=== PATIENT | female | born 1950 | race Caucasian/White ===

== ENCOUNTER 2016-06-01 17:08 | Inpatient (IN) | payer MEDICARE, OTHER ==
[2016-06-01] VITALS (8 sets, daily range): BP systolic 124–185; BP diastolic 70–85; PULSE 77–85; RESP 16–18; TEMP 98.2; O2SAT 94–97
[~2016-06-01] VITALS: Ht 152.4 cm; Wt 68.4 kg
[~2016-06-01 17:08] MED LIST: ADVA100A INH; ASPI1TAB69 PO; BENA25TA3 PO; BETH25TA2 PO; CYAN1000P IM; DIFL100T PO; HYDR500C2 PO; LANO0.2510 PO; LEVA0.637 INH; LISI-519 PO; METO25TA3 PO; METR-1 PO; OXYB5TAB10 PO; OXYC30TA PO; OXYC80TA9 PO; PANT40TA3 PO; PRIL40CA PO; PROM1SUP8 RECTAL; SOMA350T PO; SUMA85TA PO; TEMA30CA PO; TRIL135C PO; VENTAER INH; ZOFR8TAB PO
[2016-06-01] MEDS ORDERED: SODIUM CHLOR 0.9% 1000 ML INJ 1,000 ML IV SCH (17:46)
--- NOTE | 2016-06-01 17:56 | PD ---
HPI Chief Complaint: GI Complaint Time Seen by Provider: 17:28 Travel History International Travel<30 days: No Contact w/Intl Traveler<30days: No Traveled to known affect area: No History of Present Illness HPI The patient is a 66-year-old female who presents to the emergency department for abdominal pain. The patient notes a history of abdominal pain over the last several months which is been intermittent, located in the lower aspect of her abdomen occasionally the epigastrium. The pain is dull to sharp, nonradiating, and associated with nausea and vomiting. The patient has had a workup including CT scans and lipase, with a history of pancreatitis. The patient is also had a history of chronic inflammation of her colon and recently underwent a sigmoidoscopy by Dr. Arevalo's office, was negative per the employment coordinator. The patient does note nausea and vomiting, denies any acute diarrhea. She denies any fever, chills, or sweats. The patient does have a history of chronic pain and is on medications by her pain interventional list, Dr. Nunes. [facility] Past Medical History Anemia: Yes (MYLOPROLIFERATIVE BLOOD DISORDER) Arthritis: No Asthma: Yes Atrial Fibrillation: Yes Autoimmune Disease: No Blood Disorders: No Anxiety: No Depression: No Heart Rhythm Problems: Yes (AFIB) Cancer: No Cardiovascular Problems: No High Cholesterol: No Chemotherapy: No Chest Pain: No Congestive Heart Failure: No COPD: Yes (EMPHYSEMA) Cerebrovascular Accident: Yes Diabetes: No Diminished Hearing: No Endocrine: No Gastrointestinal Disorders: Yes GERD: No Glaucoma: No Genitourinary: No Headaches: No Hepatitis: Yes (HEP-B) Hiatal Hernia: No Hypertension: Yes Immune Disorder: No Kidney Stones: No Musculoskeletal: No Neurologic: No Psychiatric: No Respiratory: Yes Migraines: Yes Myocardial Infarction: No Radiation Therapy: No Renal Failure: No Seizures: No Sickle Cell Disease: No Sleep Apnea: No Thyroid Disease: No Ulcer: No Menopausal: Yes Tubal Ligation: Yes Past Surgical History Abdominal Surgery: Yes (NAPOLEON,HERNIA REPAIR X 3) AICD: No Cardiac Surgery: No Cholecystectomy: Yes Ear Surgery: No Endocrine Surgery: No Eye Surgery: No Genitourinary Surgery: Yes (BLADDER SUSPENSION) Gynecologic Surgery: Yes (LT BREAST LUMPECTOMY) Hysterectomy: Yes Insulin Pump: No Joint Replacement: No Oral Surgery: No Pacemaker: No Thoracic Surgery: No Other Surgery: Yes Social History Alcohol Use: No Tobacco Use: No (FORMER) Substance Use: No Allergies-Medications (Allergen,Severity, Reaction): Coded Allergies: Bactrim (Verified Allergy, Severe, "VOMITING", 06/01/16) Inderal (Verified Allergy, Severe, "CAUSES ASTHMA ATTACK", 06/01/16) Indocin (Verified Allergy, Severe, "NAUSEA", 06/01/16) Penicillin (Verified Allergy, Severe, "HEART FAILURE", 06/01/16) Procardia (Verified Allergy, Severe, "RAPID HEART BEAT", 06/01/16) Reported Meds & Prescriptions Reported Meds & Active Scripts Active Pantoprazole (Pantoprazole Sodium) 40 Mg Tab 40 Mg PO DAILY Metoprolol Tartrate 25 Mg Tab 12.5 Mg PO Q12HR Zofran (Ondansetron HCl) 8 Mg Tab 8 Mg PO TID PRN Lisinopril 5 Mg Tab 5 Mg PO DAILY 30 Days Reported Toviaz ER (Fesoterodine Fumarate) 4 mg Roderick 4 Mg PO DAILY Ditropan (Oxybutynin Chloride) 5 Mg Tab 5 Mg PO Q12HR Bethanechol 25 Mg Tab 25 Mg PO QID Benadryl Allergy (Diphenhydramine HCl) 25 Mg Tab 25 Mg PO Q6H PRN Ventolin Hfa 18 GM Inh (Albuterol Sulfate) 90 Mcg/Act Aer 1 Puff INH Q4H PRN Advair Diskus Inh (Fluticasone-Salmeterol Inh) 100-50 Mcg/Blist Aer 1 Puff INH BID Rinse mouth after use. Levalbuterol Neb (Levalbuterol HCl) 0.63 Mg/3 Ml Neb 0.63 Mg INH QID Cyanocobalamin Inj (Cyanocobalamin) 1,000 Mcg/Ml Inj 1,000 Mcg IM Q30D Aspirin 81 Mg Tabdr 81 Mg PO DAILY Lanoxin (Digoxin) 0.25 Mg Tab 0.25 Mg PO DAILY Treximet (Sumatriptan-Naproxen) 85-500 Mg Tab 1 Tab PO Q12HR PRN May take a second dose after 2 hours if needed. Maximum 2 tabs in 24 hour period. Trilipix (Choline Fenofibrate DR) 135 Mg Capdr 135 Mg PO DAILY Hydroxyurea 500 Mg Cap 500 Mg PO Q12HR Oxycodone (Oxycodone HCl) 30 Mg Tab 30 Mg PO Q8H PRN Oxycontin (Oxycodone HCl) 80 Mg Tab 80 Mg PO Q8HR PRN Review of Systems Except as stated in HPI: all other systems reviewed are Neg General / Constitutional: No: Fever, Chills Cardiovascular: No: Chest Pain or Discomfort Respiratory: No: Shortness of Breath Gastrointestinal: Positive: Nausea, Vomiting, Abdominal Pain, No: Diarrhea Genitourinary: No: Dysuria Musculoskeletal: No: Weakness Neurologic: Positive: Change in Mentation (history of delirium according to the employment coordinator) Physical Exam Narrative GENERAL: 66-year-old female appears slightly disheveled. SKIN: Warm and dry. HEAD: Atraumatic. Normocephalic. EYES: No scleral icterus noted. ENT: No nasal bleeding or discharge. Slightly dry mucous membranes. NECK: Trachea midline. No JVD. CARDIOVASCULAR: Regular rate and rhythm. No murmur appreciated. RESPIRATORY: No accessory muscle use. Clear to auscultation. Breath sounds equal bilaterally. GASTROINTESTINAL: Abdomen soft, diffusely tender but no tympany or rebound tenderness. Well-healed scar right upper quadrant from previous open cholecystectomy. MUSCULOSKELETAL: No obvious deformities. No clubbing. No cyanosis. No edema. NEUROLOGICAL: Awake and alert. No obvious cranial nerve deficits. Motor grossly within normal limits. Normal speech. PSYCHIATRIC: Odd affect. Data Data Last Documented VS Vital Signs Date Time Temp Pulse Resp B/P Pulse Ox O2 Delivery O2 Flow Rate FiO2 06/01/16 20:12 78 18 169/72 97 Room Air 06/01/16 17:25 98.2 Orders Complete Blood Count With Diff (06/01/16 17:46) Comprehensive Metabolic Panel (06/01/16 17:46) Lipase (06/01/16 17:46) Lactic Acid (06/01/16 17:46) Urinalysis - C+S If Indicated (06/01/16 17:46) Ct Abd/Pel W/O Iv Contrast (06/01/16 17:46) Iv Access Insert/Monitor (06/01/16 17:46) Ecg Monitoring (06/01/16 17:46) Oximetry (06/01/16 17:46) Morphine Inj (Morphine Inj) (06/01/16 18:00) Ondansetron Inj (Zofran Inj) (06/01/16 18:00) Sodium Chlor 0.9% 1000 Ml Inj (Ns 1000 M (06/01/16 17:46) Sodium Chloride 0.9% Flush (Ns Flush) (06/01/16 18:00) Ciprofloxacin 400 Mg Premix (Cipro 400 M (06/01/16 18:45) Metronidazole 500 Mg Inj (Flagyl 500 Mg (06/01/16 18:45) Urine Culture (06/01/16 18:00) Potassium Chlor 10 Meq Premix (Kcl 10 Me (06/01/16 20:15) Potassium Chloride (Kcl) (06/01/16 20:15) Calcium Carbonate Chew (Tums Chew) (06/01/16 20:15) Electrocardiogram (06/01/16 ) Admit Order (Ed Use Only) (06/01/16 ) ^ Saline Lock (06/01/16 20:34) Resp Oxygen Anuj C Titrat 1-4 L (06/01/16 ) ^ Notify Dr: Other (06/01/16 20:34) Sodium Chloride 0.9% Flush (Ns Flush) (06/01/16 21:00) Sodium Chloride 0.9% Flush (Ns Flush) (06/01/16 20:45) ^ For Further Orders (06/01/16 20:34) Digoxin (06/01/16 18:34) Magnesium (Mg) (06/01/16 18:34) Troponin I (06/01/16 18:34) Labs Laboratory Tests Test 06/01/16 06/01/16 18:00 18:34 Urine Collection Type CLEAN CATCH Urine Color YELLOW Urine Turbidity MARKED Urine pH 6.0 Urine Specific [place] 1.020 Urine Protein 100 mg/dL Urine Glucose (UA) NEG mg/dL Urine Ketones NEG mg/dL Urine Occult Blood SMALL Urine Nitrite NEG Urine Bilirubin NEG Urine Leukocyte Esterase MOD Urine RBC 15-19 /hpf Urine WBC INNUM /hpf Urine WBC Clumps MOD Urine Squamous Epithelial 6-8 /hpf Cells Urine Amorphous Sediment FEW Urine Bacteria MANY /hpf Microscopic Urinalysis Comment CULTURE INDICATED Urine Collection Time 1800 White Blood Count 7.7 TH/MM3 Red Blood Count 3.23 MIL/MM3 Hemoglobin 11.3 GM/DL Hematocrit 33.7 % Mean Corpuscular Volume 104.3 FL Mean Corpuscular Hemoglobin 34.9 PG Mean Corpuscular Hemoglobin 33.5 % Concent Red Cell Distribution Width 18.1 % Platelet Count 131 TH/MM3 Mean Platelet Volume 9.3 FL Neutrophils (%) (Auto) 69.8 % Lymphocytes (%) (Auto) 20.0 % Monocytes (%) (Auto) 9.0 % Eosinophils (%) (Auto) 0.4 % Basophils (%) (Auto) 0.8 % Neutrophils # (Auto) 5.4 TH/MM3 Lymphocytes # (Auto) 1.5 TH/MM3 Monocytes # (Auto) 0.7 TH/MM3 Eosinophils # (Auto) 0.0 TH/MM3 Basophils # (Auto) 0.1 TH/MM3 CBC Comment DIFF FINAL Differential Comment Sodium Level 145 MEQ/L Potassium Level 2.8 MEQ/L Chloride Level 107 MEQ/L Carbon Dioxide Level 27.1 MEQ/L Anion Gap 11 MEQ/L Blood Urea Nitrogen 10 MG/DL Creatinine 0.60 MG/DL Estimat Glomerular Filtration 100 ML/MIN Rate Random Glucose 123 MG/DL Lactic Acid Level 1.2 mmol/L Calcium Level 6.8 MG/DL Protein Corrected Calcium 7.0 MG/DL Magnesium Level 0.9 MG/DL Total Bilirubin 0.6 MG/DL Aspartate Amino Transf 19 U/L (AST/SGOT) Alanine Aminotransferase 9 U/L (ALT/SGPT) Alkaline Phosphatase 46 U/L Troponin I LESS THAN 0.02 NG/ML Total Protein 6.8 GM/DL Albumin 2.5 GM/DL Lipase 101 U/L Digoxin Level 1.4 NG/ML MDM Medical Decision Making Medical Screen Exam Complete: Yes Emergency Medical Condition: Yes Medical Record Reviewed: Yes Interpretation(s) MRCP performed May 27, 2016 at [facility] reveals dilation of the pancreatic duct in the common bile duct that is at the upper range for normal for patient that is status post cholecystectomy. No obstructing stone or mass. The duct tapers at the level of the ampulla. Abnormal appearance to the hepatic flexure concerning for possible mass. MRI of the brain on May 27, 2016 at [facility] reveals no evidence of an acute abnormality. CT of the abdomen and pelvis reveals mild bowel wall thickening in the transverse colon. This could represent mild colitis. Scattered diverticula in the sigmoid colon. I do not see any active diverticulitis in the sigmoid colon. One tiny bubble of air is present in the bladder, nonspecific. Differential Diagnosis Differential diagnosis includes pancreatitis, chronic pancreatitis, pancreatic cancer, colon cancer, chronic colitis, malingering, drug-seeking behavior, dehydration. Narrative Course IV was established, labs were drawn and sent, and the patient was placed on cardiac telemetry monitoring and continuous pulse oximetry monitoring. I reviewed the patient's recent MRIs on an outpatient basis including MRCP an MRI of the brain. I reviewed the patient's EMR she has had CAT scans in the past which always reveal thickening of the colon, however, the patient's employment coordinator states that she recently had a sigmoidoscopy which was unremarkable and was going to have an outpatient colonoscopy with Dr. Arevalo's office. The patient was administered morphine, Zofran, and IV fluids for her pain. Lipase was sent to lab. CT of the abdomen and pelvis was ordered. CT the abdomen and pelvis reveals questionable ball wall thickening and transverse colon which could represent a mild colitis. Therefore, patient was administered Cipro and Flagyl. The patient was signed out to the oncoming physician at 7 PM with laboratory evaluation and disposition pending. The patient's UA was positive for innumerable WBCs, therefore, Cipro which had been provided for colitis should cover for UTI. Culture was obtained. Diagnosis Primary Impression: Abdominal pain Qualified Code: R10.84 - Generalized abdominal pain Additional Impressions: Colitis UTI (urinary tract infection) Qualified Code: N30.00 - Acute cystitis without hematuria Condition: Stable Hardeep Marin MD Jun 01, 2016 17:56
[2016-06-01] MEDS ORDERED: TOVI4TAB PO (17:57)
[2016-06-01] MEDS ORDERED: SODIUM CHLORIDE 0.9% FLUSH 5 ML FLUSH IVF PRN ×2 (18:00→20:45)
[2016-06-01] MEDS ORDERED: ONDANSETRON HCL 4 MG/2 ML VIAL IVP ONE (18:00)
[2016-06-01] MEDS ORDERED: MORPHINE SULFATE 4 MG/ML INJ IV PUSH ONE ×2 (18:00→23:15)
[2016-06-01 18:30] LABS: BLOOD, URINE SMALL (NEG); GLUCOSE,URINE NEG (NEG); KETONE, URINE NEG (NEG); NITRITE,URINE NEG (NEG)
--- NOTE | 2016-06-01 18:33 | RADHPO ---
EXAM DATE/TIME: 06/01/2016 18:09 [place] COMPARISON: No previous studies available for comparison. INDICATIONS : Lower abdomen pain for two months. ORAL CONTRAST: No oral contrast ingested. RADIATION DOSE: 9.18 CTDIvol (mGy) MEDICAL HISTORY : Stroke. Hepatitis B. Pancreatitis. SURGICAL HISTORY : Hysterectomy. Cholecystectomy. Tubal ligation. Bladder suspension. ENCOUNTER: Initial ACUITY: 2 months PAIN SCALE: 8/10 LOCATION: Bilateral lower quadrant TECHNIQUE: Volumetric scanning of the abdomen and pelvis was performed. Using automated exposure control and ad justment of the mA and/or kV according to patient size, radiation dose was kept as low as reasonably achievable to obtain optimal diagnostic quality images. FINDINGS: Very minimal parenchymal changes are seen in the right base. Multiple surgical clips are seen in the gallbladder fossa. The spleen is prominent. The pancreas, adrenals and right kidney are unremarkab le. There is a parenchymal calcification in the lower mid portion of the left kidney. There is very minimal bowel wall thickening in the transverse colon that could be a mild colitis. Th e descending colon appears normal. Diverticula are present in the sigmoid colon without diverticulitis. The bladder is partially decompressed. CONCLUSION: Mild bowel wall thickening in the transverse colon. This could represent mild colitis. Scattered di verticula in the sigmoid colon. I do not any active diverticulitis in the sigmoid colon. One tiny lani ble of air is present in the bladder, non-specific. Roni Shook MD FACR on June 01, 2016 at 18:22 Board Certified Radiologist. This report was verified electronically.
[2016-06-01 18:35] LABS: METHOD OF COLLECTION CLEAN CATCH; URINE COLOR YELLOW (YELLW/STRAW)
[2016-06-01 18:39] LABS: BACTERIA, URINE MANY /hpf; COMMENT (UR) CULTURE INDICATED; COMMENT2 (UR) MUCOUS PRESENT; CULTURE IF INDICATED CULTURE INDICATED; RBC, URINE 15-19 /hpf (0-3); WBC, URINE INNUM /hpf (0-5)
[2016-06-01] MEDS ORDERED: CIPROFLOXACIN 400 MG PREMIX 200 ML IV ONE (18:45)
[2016-06-01] MEDS ORDERED: metroNIDAZOLE 500 MG INJ 100 ML IV ONE (18:45)
[2016-06-01 18:50] LABS: AUTOMATED NEUTROPHIL # 5.4 TH/MM3 (1.8-7.7); BASOPHIL # 0.1 TH/MM3 (0-0.2); BASOPHIL % 0.8 % (0.0-2.0); EOSINOPHIL % 0.4 % (0.0-4.0); HEMATOCRIT 33.7 % (35.0-46.0); HEMO FLAGS DIFF FINAL; LYMPHOCYTE # 1.5 TH/MM3 (1.0-4.8); MEAN CELL VOLUME 104.3 FL (80.0-100.0); MEAN CORPUSCULAR HEMOGLOBIN 34.9 PG (27.0-34.0); MEAN CORPUSCULAR HGB CONC 33.5 % (32.0-36.0); NEUT % 69.8 % (16.0-70.0); PLATELET COUNT 131 TH/MM3 (150-450); RED BLOOD COUNT 3.23 MIL/MM3 (4.00-5.30); RED CELL DISTRIBUTION WIDTH 18.1 % (11.6-17.2); WHITE BLOOD COUNT 7.7 TH/MM3 (4.0-11.0)
--- NOTE | 2016-06-01 19:09 | PD ---
Physical Exam Date Seen by Provider: Jun 01, 2016 Time Seen by Provider: 19:08 Narrative Accepted in transfer of care from Dr. Marin GENERAL: elderly appearing female in no acute distress or respiratory distress CARDIOVASCULAR: Regular rate and rhythm without murmurs, gallops, or rubs. RESPIRATORY: Breath sounds equal bilaterally. No accessory muscle use. GASTROINTESTINAL: Abdomen soft, non-tender, nondistended. Data Data Last Documented VS Vital Signs Date Time Temp Pulse Resp B/P Pulse Ox O2 Delivery O2 Flow Rate FiO2 06/01/16 20:12 78 18 169/72 97 Room Air 06/01/16 17:25 98.2 Orders Complete Blood Count With Diff (06/01/16 17:46) Comprehensive Metabolic Panel (06/01/16 17:46) Lipase (06/01/16 17:46) Lactic Acid (06/01/16 17:46) Urinalysis - C+S If Indicated (06/01/16 17:46) Ct Abd/Pel W/O Iv Contrast (06/01/16 17:46) Iv Access Insert/Monitor (06/01/16 17:46) Ecg Monitoring (06/01/16 17:46) Oximetry (06/01/16 17:46) Morphine Inj (Morphine Inj) (06/01/16 18:00) Ondansetron Inj (Zofran Inj) (06/01/16 18:00) Sodium Chlor 0.9% 1000 Ml Inj (Ns 1000 M (06/01/16 17:46) Sodium Chloride 0.9% Flush (Ns Flush) (06/01/16 18:00) Ciprofloxacin 400 Mg Premix (Cipro 400 M (06/01/16 18:45) Metronidazole 500 Mg Inj (Flagyl 500 Mg (06/01/16 18:45) Urine Culture (06/01/16 18:00) Potassium Chlor 10 Meq Premix (Kcl 10 Me (06/01/16 20:15) Potassium Chloride (Kcl) (06/01/16 20:15) Calcium Carbonate Chew (Tums Chew) (06/01/16 20:15) Electrocardiogram (06/01/16 ) Admit Order (Ed Use Only) (06/01/16 ) ^ Saline Lock (06/01/16 20:34) Resp Oxygen Anuj C Titrat 1-4 L (06/01/16 ) ^ Notify Dr: Other (06/01/16 20:34) Sodium Chloride 0.9% Flush (Ns Flush) (06/01/16 21:00) Sodium Chloride 0.9% Flush (Ns Flush) (06/01/16 20:45) ^ For Further Orders (06/01/16 20:34) Digoxin (06/01/16 18:34) Magnesium (Mg) (06/01/16 18:34) Troponin I (06/01/16 18:34) Labs Laboratory Tests Test 06/01/16 06/01/16 18:00 18:34 Urine Collection Type CLEAN CATCH Urine Color YELLOW Urine Turbidity MARKED Urine pH 6.0 Urine Specific [place] 1.020 Urine Protein 100 mg/dL Urine Glucose (UA) NEG mg/dL Urine Ketones NEG mg/dL Urine Occult Blood SMALL Urine Nitrite NEG Urine Bilirubin NEG Urine Leukocyte Esterase MOD Urine RBC 15-19 /hpf Urine WBC INNUM /hpf Urine WBC Clumps MOD Urine Squamous Epithelial 6-8 /hpf Cells Urine Amorphous Sediment FEW Urine Bacteria MANY /hpf Microscopic Urinalysis Comment CULTURE INDICATED Urine Collection Time 1800 White Blood Count 7.7 TH/MM3 Red Blood Count 3.23 MIL/MM3 Hemoglobin 11.3 GM/DL Hematocrit 33.7 % Mean Corpuscular Volume 104.3 FL Mean Corpuscular Hemoglobin 34.9 PG Mean Corpuscular Hemoglobin 33.5 % Concent Red Cell Distribution Width 18.1 % Platelet Count 131 TH/MM3 Mean Platelet Volume 9.3 FL Neutrophils (%) (Auto) 69.8 % Lymphocytes (%) (Auto) 20.0 % Monocytes (%) (Auto) 9.0 % Eosinophils (%) (Auto) 0.4 % Basophils (%) (Auto) 0.8 % Neutrophils # (Auto) 5.4 TH/MM3 Lymphocytes # (Auto) 1.5 TH/MM3 Monocytes # (Auto) 0.7 TH/MM3 Eosinophils # (Auto) 0.0 TH/MM3 Basophils # (Auto) 0.1 TH/MM3 CBC Comment DIFF FINAL Differential Comment Sodium Level 145 MEQ/L Potassium Level 2.8 MEQ/L Chloride Level 107 MEQ/L Carbon Dioxide Level 27.1 MEQ/L Anion Gap 11 MEQ/L Blood Urea Nitrogen 10 MG/DL Creatinine 0.60 MG/DL Estimat Glomerular Filtration 100 ML/MIN Rate Random Glucose 123 MG/DL Lactic Acid Level 1.2 mmol/L Calcium Level 6.8 MG/DL Protein Corrected Calcium 7.0 MG/DL Magnesium Level 0.9 MG/DL Total Bilirubin 0.6 MG/DL Aspartate Amino Transf 19 U/L (AST/SGOT) Alanine Aminotransferase 9 U/L (ALT/SGPT) Alkaline Phosphatase 46 U/L Total Protein 6.8 GM/DL Albumin 2.5 GM/DL Lipase 101 U/L Digoxin Level 1.4 NG/ML [facility] Medical Record Reviewed: Yes Supervised Visit with ARCELIA: No Interpretation(s) ekg: Normal sinus rhythm rate 80 with first-degree AV block RSR prime noted septally patient with extensive ST-T segment depression no acute ST segment elevation or ectopy noted baseline artifact present Laboratory Tests Test 06/01/16 06/01/16 18:00 18:34 Urine Collection Type CLEAN CATCH Urine Color YELLOW Urine Turbidity MARKED Urine pH 6.0 Urine Specific [place] 1.020 Urine Protein 100 mg/dL Urine Glucose (UA) NEG mg/dL Urine Ketones NEG mg/dL Urine Occult Blood SMALL Urine Nitrite NEG Urine Bilirubin NEG Urine Leukocyte Esterase MOD Urine RBC 15-19 /hpf Urine WBC INNUM /hpf Urine WBC Clumps MOD Urine Squamous Epithelial 6-8 /hpf Cells Urine Amorphous Sediment FEW Urine Bacteria MANY /hpf Microscopic Urinalysis Comment CULTURE INDICATED Urine Collection Time 1800 White Blood Count 7.7 TH/MM3 Red Blood Count 3.23 MIL/MM3 Hemoglobin 11.3 GM/DL Hematocrit 33.7 % Mean Corpuscular Volume 104.3 FL Mean Corpuscular Hemoglobin 34.9 PG Mean Corpuscular Hemoglobin 33.5 % Concent Red Cell Distribution Width 18.1 % Platelet Count 131 TH/MM3 Mean Platelet Volume 9.3 FL Neutrophils (%) (Auto) 69.8 % Lymphocytes (%) (Auto) 20.0 % Monocytes (%) (Auto) 9.0 % Eosinophils (%) (Auto) 0.4 % Basophils (%) (Auto) 0.8 % Neutrophils # (Auto) 5.4 TH/MM3 Lymphocytes # (Auto) 1.5 TH/MM3 Monocytes # (Auto) 0.7 TH/MM3 Eosinophils # (Auto) 0.0 TH/MM3 Basophils # (Auto) 0.1 TH/MM3 CBC Comment DIFF FINAL Differential Comment Sodium Level 145 MEQ/L Potassium Level 2.8 MEQ/L Chloride Level 107 MEQ/L Carbon Dioxide Level 27.1 MEQ/L Anion Gap 11 MEQ/L Blood Urea Nitrogen 10 MG/DL Creatinine 0.60 MG/DL Estimat Glomerular Filtration 100 ML/MIN Rate Random Glucose 123 MG/DL Lactic Acid Level 1.2 mmol/L Calcium Level 6.8 MG/DL Protein Corrected Calcium 7.0 MG/DL Magnesium Level 0.9 MG/DL Total Bilirubin 0.6 MG/DL Aspartate Amino Transf 19 U/L (AST/SGOT) Alanine Aminotransferase 9 U/L (ALT/SGPT) Alkaline Phosphatase 46 U/L Total Protein 6.8 GM/DL Albumin 2.5 GM/DL Lipase 101 U/L Digoxin Level 1.4 NG/ML Differential Diagnosis Please refer to Dr. Marin's dictation Narrative Course Accepted in transfer of care from Dr. Marin for follow-up of pending labs and patient disposition Patient voicing no complaints aware waiting on lab results and disposition Electrolytes identified to be significantly abnormal and replacement initiated in the emergency department; patient is aware that she will be admitted for ongoing electrolyte replacement and management of her UTI and chronic recurrent colitis Patient's case discussed with her primary care provider Dr. Chester will admit to his service EKG performed which identifies that patient does have considered segment depression concerning for possible ischemia although patient this time voicing no concerns Patient now complaining of pain morphine had been administered upon patient's arrival patient takes multiple pain medications and generalized pain is most likely reflective of subtherapeutic opiate level however in view of EKG changes and specifically of having any chest discomfort and patient states she might be having some mild discomfort in the chest area and had mentioned that her pain had been intermittent in the epigastric region as well as her chronic recurrent abdominal pain noted in initial provider's note therefore troponin added to patient's labs as well as patient administered her morphine dose of 2 mg IV and Nitropaste 1/2 inch to chest wall was administered as was also discussed with patient's admitting physician Dr. Chester who states he will follow-up on lab results as well as had a cardiology consult to patient's admission plan. Diagnosis Primary Impression: Abdominal pain Qualified Code: R10.84 - Generalized abdominal pain Additional Impressions: Colitis UTI (urinary tract infection) Qualified Code: N30.00 - Acute cystitis without hematuria Electrolyte disturbance COPD (chronic obstructive pulmonary disease) Condition: Stable Kacie Hong MD Jun 01, 2016 19:09
[2016-06-01 20:05] LABS: ALKALINE PHOSPHATASE 46 U/L (45-117); ALT (GPT) 9 U/L (10-53); ANION GAP 11 MEQ/L (5-15); AST (GOT) 19 U/L (15-37); BICARBONATE 27.1 MEQ/L (21.0-32.0); BLOOD UREA NITROGEN 10 MG/DL (7-18); CHLORIDE 107 MEQ/L (98-107); GLOMERULAR FILTRATION RATE 100 ML/MIN (>89); SODIUM (NA) 145 MEQ/L (136-145); TOTAL BILIRUBIN ADULT 0.6 MG/DL (0.2-1.0)
[2016-06-01 20:08] LABS: POTASSIUM 2.8 MEQ/L (3.5-5.1)
[2016-06-01] MEDS ORDERED: POTASSIUM CHLORIDE 20 MEQ CONTROLLED RELEASE TAB PO ONE (20:15)
[2016-06-01] MEDS ORDERED: CALCIUM CARBONATE 500 MG CHEWABLE TAB CHEW ONE (20:15)
[2016-06-01] MEDS: SODIUM CHLORIDE 0.9% FLUSH 5 ML FLUSH IVF SCH (21:00)
[2016-06-01] MEDS ORDERED: SODIUM CHLORIDE 0.9% FLUSH 5 ML FLUSH FLUSH SCH (21:00)
[2016-06-01] MEDS ORDERED: NALOXONE HCL 0.4 MG/ML AMP IV PRN (21:00)
[2016-06-01] MEDS ORDERED: SODIUM CHLORIDE 0.9% FLUSH 5 ML FLUSH FLUSH PRN (21:00)
[2016-06-01] MEDS: POTASSIUM CHLOR 10 MEQ PREMIX 100 ML IV SCH ×3 (21:04→23:07)
[2016-06-01 21:22] LABS: DIGOXIN 1.4 NG/ML (0.8-2.0); MAGNESIUM 0.9 MG/DL (1.5-2.5)
[2016-06-01] MEDS ORDERED: CALCIUM GLUCONATE INJ 1 GM in DEXTROSE 5% IN WATER 100ML INJ 100 ML IV ONE ×2 (22:15)
[2016-06-01] MEDS ORDERED: ONDANSETRON ODT 4 MG TAB PO PRN (22:45)
[2016-06-01] MEDS: MAGNESIUM SULFATE 1 GM PREMIX 100 ML IV SCH (23:02)
[2016-06-01] MEDS ORDERED: NITROGLYCERIN 2% OINT 1 GM PACKET TOPICAL ONE (23:15)
[2016-06-02] VITALS (11 sets, daily range): BP systolic 149–194; BP diastolic 75–96; PULSE 81–99; RESP 18–20; TEMP 96.1–97.6; O2SAT 95–98
[2016-06-02] MEDS: MAGNESIUM SULFATE 1 GM PREMIX 100 ML IV SCH (00:11)
[2016-06-02] MEDS: FENOFIBRATE 145 MG TAB PO SCH ×2 (01:50→09:17)
[2016-06-02] MEDS: oxyCODONE/ACETAMINOPHEN 10 MG/325 MG TAB PO PRN ×2 (02:01→23:01)
[2016-06-02] MEDS: oxyCODONE HCL 10 MG CONTROLLED RELEASE TAB PO SCH ×3 (06:41→22:49)
[2016-06-02] MEDS: RESP: ALBUTEROL 1.25 MG/3 ML NEB (SCH) NEB ×4 (08:20→20:20)
[2016-06-02 08:29] LABS: AUTOMATED NEUTROPHIL # 4.7 TH/MM3 (1.8-7.7); BASOPHIL % 0.6 % (0.0-2.0); EOSINOPHIL # 0.1 TH/MM3 (0-0.4); EOSINOPHIL % 0.7 % (0.0-4.0); HEMATOCRIT 34.8 % (35.0-46.0); LYMPH % 23.9 % (9.0-44.0); LYMPHOCYTE # 1.7 TH/MM3 (1.0-4.8); MEAN CELL VOLUME 104.3 FL (80.0-100.0); MEAN CORPUSCULAR HGB CONC 32.7 % (32.0-36.0); MONO % 9.7 % (0.0-8.0); NEUT % 65.1 % (16.0-70.0); PLATELET COUNT 145 TH/MM3 (150-450); RED BLOOD COUNT 3.34 MIL/MM3 (4.00-5.30); RED CELL DISTRIBUTION WIDTH 18.2 % (11.6-17.2); WHITE BLOOD COUNT 7.2 TH/MM3 (4.0-11.0)
[2016-06-02 08:30] LABS: CHLORIDE 107 MEQ/L (98-107); POTASSIUM 3.1 MEQ/L (3.5-5.1); SODIUM (NA) 145 MEQ/L (136-145)
[2016-06-02 08:32] LABS: HEMO FLAGS DIFF FINAL
[2016-06-02 08:34] LABS: ANION GAP 11 MEQ/L (5-15); BICARBONATE 27.5 MEQ/L (21.0-32.0); BLOOD UREA NITROGEN 4 MG/DL (7-18)
[2016-06-02 08:37] LABS: ALT (GPT) 8 U/L (10-53); AST (GOT) 19 U/L (15-37); GLOMERULAR FILTRATION RATE 143 ML/MIN (>89)
[2016-06-02 08:39] LABS: TOTAL BILIRUBIN ADULT 0.7 MG/DL (0.2-1.0)
[2016-06-02 08:40] LABS: ALKALINE PHOSPHATASE 45 U/L (45-117)
[2016-06-02] MEDS: BUDESONIDE-FORMOTEROL 80/4.5 MCG INHALER INH SCH ×2 (09:00→22:41)
[2016-06-02] MEDS: HYDROXYUREA 500 MG CAP PO SCH ×2 (09:16→22:48)
[2016-06-02] MEDS: LISINOPRIL 5 MG TAB PO SCH (09:16)
[2016-06-02] MEDS: PANTOPRAZOLE SOD 40 MG DELAYED RELEASE TAB PO SCH (09:17)
[2016-06-02] MEDS: SODIUM CHLORIDE 0.9% FLUSH 5 ML FLUSH IVF SCH ×2 (09:17→22:50)
[2016-06-02] MEDS: ASPIRIN EC 81 MG TABEC PO SCH (09:17)
[2016-06-02] MEDS: ALBUTEROL SULFATE 90 MCG/ACT HFA 8 GM INHALER INH PRN (09:22)
[2016-06-02] MEDS ORDERED: SODIUM CHLORIDE 0.9% FLUSH 5 ML FLUSH FLUSH PRN (12:00)
[2016-06-02] MEDS ORDERED: cloNIDine HCL 0.1 MG TAB PO PRN (12:00)
--- NOTE | 2016-06-02 13:34 | HHI.HP ---
History of Present Illness Service [facility] [place] [facility] Primary Care Physician Dr Cifuentes Admission Diagnosis electrolyte disorder; colitis; uti Diagnoses: History of Present Illness The patient is a 66-year-old female who presents to the emergency department for abdominal pain. Patient has a past medical history of HTN, GERD , chronic pain, COPD, and myeloproliferative blood disease. The patient notes a history of abdominal pain over the last several months which is been intermittent, located in the lower aspect of her abdomen occasionally the epigastrium. The pain is dull to sharp, nonradiating, and associated with nausea and vomiting. The patient has had a workup including CT scans and lipase , with a history of pancreatitis. The patient is also had a history of chronic inflammation of her colon and recently underwent a sigmoidoscopy by Dr. Arevalo's office, was negative per the clinical rn. The patient does note nausea and vomiting, denies any acute diarrhea. She denies any fever, chills, or sweats. The patient does have a history of chronic pain and is on medications by her pain interventional list, Dr. Nunes Review of Systems ROS Limitations: Poor Historian Constitutional: COMPLAINS OF: Fatigue, DENIES: Chills, Dizziness Respiratory: DENIES: Cough, Wheezing, Sputum production, Shortness of breath Cardiovascular: COMPLAINS OF: Chest pain, DENIES: Lower Extremity Edema Gastrointestinal: COMPLAINS OF: Abdominal pain, DENIES: Constipation, Diarrhea Integumentary: DENIES: Pruritus, Rash Neurologic: DENIES: Headache, Seizures, Poor Balance Psychiatric: DENIES: Anxiety, Depression Past Family Social History Allergies: Coded Allergies: Bactrim (Verified Allergy, Severe, "VOMITING", 06/01/16) Inderal (Verified Allergy, Severe, "CAUSES ASTHMA ATTACK", 06/01/16) Indocin (Verified Allergy, Severe, "NAUSEA", 06/01/16) Penicillin (Verified Allergy, Severe, "HEART FAILURE", 06/01/16) Procardia (Verified Allergy, Severe, "RAPID HEART BEAT", 06/01/16) Past Medical History Anemia: Yes (MYLOPROLIFERATIVE BLOOD DISORDER) Arthritis: No Asthma: Yes Atrial Fibrillation: Yes Autoimmune Disease: No Blood Disorders: No Anxiety: No Depression: No Heart Rhythm Problems: Yes (AFIB) Cancer: No Cardiovascular Problems: No High Cholesterol: No Chemotherapy: No Chest Pain: No Congestive Heart Failure: No COPD: Yes (EMPHYSEMA) Cerebrovascular Accident: Yes Diabetes: No Diminished Hearing: No Endocrine: No Gastrointestinal Disorders: Yes GERD: No Glaucoma: No Genitourinary: No Headaches: No Hepatitis: Yes (HEP-B) Hiatal Hernia: No Hypertension: Yes Immune Disorder: No Kidney Stones: No Musculoskeletal: No Neurologic: No Psychiatric: No Respiratory: Yes Migraines: Yes Myocardial Infarction: No Radiation Therapy: No Renal Failure: No Seizures: No Sickle Cell Disease: No Sleep Apnea: No Thyroid Disease: No Ulcer: No Menopausal: Yes Tubal Ligation: Yes Past Surgical History Abdominal Surgery: Yes (NAPOLEON,HERNIA REPAIR X 3) AICD: No Cardiac Surgery: No Cholecystectomy: Yes Ear Surgery: No Endocrine Surgery: No Eye Surgery: No Genitourinary Surgery: Yes (BLADDER SUSPENSION) Gynecologic Surgery: Yes (LT BREAST LUMPECTOMY) Hysterectomy: Yes Insulin Pump: No Joint Replacement: No Oral Surgery: No Pacemaker: No Thoracic Surgery: No Other Surgery: Yes Reported Medications Reported Meds & Active Scripts Active Pantoprazole (Pantoprazole Sodium) 40 Mg Tab 40 Mg PO DAILY Metoprolol Tartrate 25 Mg Tab 12.5 Mg PO Q12HR Zofran (Ondansetron HCl) 8 Mg Tab 8 Mg PO TID PRN Lisinopril 5 Mg Tab 5 Mg PO DAILY 30 Days Reported Toviaz ER (Fesoterodine Fumarate) 4 mg Roderick 4 Mg PO DAILY Ditropan (Oxybutynin Chloride) 5 Mg Tab 5 Mg PO Q12HR Bethanechol 25 Mg Tab 25 Mg PO QID Benadryl Allergy (Diphenhydramine HCl) 25 Mg Tab 25 Mg PO Q6H PRN Ventolin Hfa 18 GM Inh (Albuterol Sulfate) 90 Mcg/Act Aer 1 Puff INH Q4H PRN Advair Diskus Inh (Fluticasone-Salmeterol Inh) 100-50 Mcg/Blist Aer 1 Puff INH BID Rinse mouth after use. Levalbuterol Neb (Levalbuterol HCl) 0.63 Mg/3 Ml Neb 0.63 Mg INH QID Cyanocobalamin Inj (Cyanocobalamin) 1,000 Mcg/Ml Inj 1,000 Mcg IM Q30D Aspirin 81 Mg Tabdr 81 Mg PO DAILY Lanoxin (Digoxin) 0.25 Mg Tab 0.25 Mg PO DAILY Treximet (Sumatriptan-Naproxen) 85-500 Mg Tab 1 Tab PO Q12HR PRN May take a second dose after 2 hours if needed. Maximum 2 tabs in 24 hour period. Trilipix (Choline Fenofibrate DR) 135 Mg Capdr 135 Mg PO DAILY Hydroxyurea 500 Mg Cap 500 Mg PO Q12HR Oxycodone (Oxycodone HCl) 30 Mg Tab 30 Mg PO Q8H PRN Oxycontin (Oxycodone HCl) 80 Mg Tab 80 Mg PO Q8HR PRN Active Ordered Medications Current Medications Medications (Trade) Dose Ordered Sig/Diane Route Start Time Stop Time Status Last Admin (NS Flush) 2 ml BID IVF 06/01/16 21:00 06/02/16 09:17 (NS Flush) 2 ml UNSCH PRN IVF 06/01/16 20:45 (Narcan Inj) 0.4 mg UNSCH PRN IV 06/01/16 21:00 (Proair Hfa Inh) 1 puff Q4H PRN INH 06/01/16 22:30 06/02/16 09:22 (Ecotrin Ec) 81 mg DAILY PO 06/02/16 09:00 06/02/16 09:17 (Hydrea) 500 mg Q12HR PO 06/02/16 09:00 06/02/16 09:16 (Prinivil) 5 mg DAILY PO 06/02/16 09:00 06/02/16 09:16 (Protonix) 40 mg DAILY PO 06/02/16 09:00 06/02/16 09:17 (Tricor) 145 mg DAILY PO 06/01/16 23:00 06/02/16 09:17 (Symbicort 80-4.5 Mcg Inh) 2 puff BID INH 06/02/16 09:00 (Zofran Odt) 8 mg TID PRN PO 06/01/16 22:45 (Roxicodone) 30 mg Q8H PRN PO 06/01/16 23:45 (OxyCONTIN CR) 10 mg Q8HR PO 06/02/16 06:00 06/02/16 06:41 (Percocet 10-325 Mg) 1 tab Q4H PRN PO 06/02/16 00:00 06/02/16 02:01 (Pneumovax-23 Inj) 25 mcg ONCE ONCE IM 06/03/16 10:00 06/03/16 10:01 (Flu (Quadrivalent) Vaccine Inj) 0.5 ml ONCE ONCE IM 06/03/16 10:00 06/03/16 10:01 (Catapres) 0.1 mg Q6H PRN PO 06/02/16 12:00 Family History Mother from heart disease Father unknown. Social History Quit smoking over 3 years ago Denies ETOH use Lives with Physical Exam Vital Signs Vital Signs Date Time Temp Pulse Resp B/P Pulse Ox O2 Delivery O2 Flow Rate FiO2 06/02/16 12:00 97.2 88 18 155/77 97 06/02/16 08:21 96 21 06/02/16 08:00 87 06/02/16 08:00 97.4 84 20 169/75 97 06/02/16 04:00 97.0 83 18 149/96 95 06/02/16 00:50 81 06/02/16 00:34 96.1 82 18 178/95 96 06/02/16 00:20 78 18 180/75 96 06/01/16 23:26 81 16 185/81 96 Room Air 06/01/16 23:11 81 16 166/80 96 Room Air 06/01/16 20:50 95 21 06/01/16 20:12 78 18 169/72 97 Room Air 06/01/16 19:13 77 162/70 96 Room Air 06/01/16 18:46 80 18 179/82 94 Room Air 06/01/16 18:45 18 06/01/16 18:16 18 96 Room Air 06/01/16 17:25 98.2 85 16 124/85 96 Physical Exam GENERAL: This is a well-developed patient in no apparent distress. SKIN: No rashes or lesions. Cool and dry. HEAD: Atraumatic. Normocephalic. EYES: Pupils equal round and reactive. . NECK: Trachea midline. No JVD . Neck supple and nontender, no meningeal signs. CARDIOVASCULAR: Regular rate and rhythm without murmurs, gallops, or rubs. RESPIRATORY: Clear to auscultation. Breath sounds equal bilaterally. No wheezes , rales, or rhonchi. GASTROINTESTINAL: Abdomen soft, non-tender, nondistended. No hepato-splenomegaly , or palpable masses. No guarding. MUSCULOSKELETAL: Extremities without clubbing, cyanosis, or edema. No joint tenderness, effusion, or edema noted. No calf tenderness. Negative Homans sign bilaterally. NEUROLOGICAL: Awake and alert. Cranial nerves II through XII intact. Motor and sensory grossly within normal limits. Five out of 5 muscle strength in all muscle groups. Normal speech. Laboratory Laboratory Tests Test 06/01/16 06/01/16 06/02/16 18:00 18:34 07:50 Urine Collection Type CLEAN CATCH Urine Color YELLOW Urine Turbidity MARKED Urine pH 6.0 Urine Specific [place] 1.020 Urine Protein 100 Urine Glucose (UA) NEG Urine Ketones NEG Urine Occult Blood SMALL Urine Nitrite NEG Urine Bilirubin NEG Urine Leukocyte Esterase MOD Urine RBC 15-19 Urine WBC INNUM Urine WBC Clumps MOD Urine Squamous Epithelial 6-8 Cells Urine Amorphous Sediment FEW Urine Bacteria MANY Microscopic Urinalysis Comment CULTURE INDICATED Urine Collection Time 1800 White Blood Count 7.7 7.2 Red Blood Count 3.23 3.34 Hemoglobin 11.3 11.4 Hematocrit 33.7 34.8 Mean Corpuscular Volume 104.3 104.3 Mean Corpuscular Hemoglobin 34.9 34.0 Mean Corpuscular Hemoglobin 33.5 32.7 Concent Red Cell Distribution Width 18.1 18.2 Platelet Count 131 145 Mean Platelet Volume 9.3 10.0 Neutrophils (%) (Auto) 69.8 65.1 Lymphocytes (%) (Auto) 20.0 23.9 Monocytes (%) (Auto) 9.0 9.7 Eosinophils (%) (Auto) 0.4 0.7 Basophils (%) (Auto) 0.8 0.6 Neutrophils # (Auto) 5.4 4.7 Lymphocytes # (Auto) 1.5 1.7 Monocytes # (Auto) 0.7 0.7 Eosinophils # (Auto) 0.0 0.1 Basophils # (Auto) 0.1 0.0 CBC Comment DIFF FINAL DIFF FINAL Differential Comment Sodium Level 145 145 Potassium Level 2.8 3.1 Chloride Level 107 107 Carbon Dioxide Level 27.1 27.5 Anion Gap 11 11 Blood Urea Nitrogen 10 4 Creatinine 0.60 0.44 Estimat Glomerular Filtration 100 143 Rate Random Glucose 123 117 Lactic Acid Level 1.2 Calcium Level 6.8 7.6 Protein Corrected Calcium 7.0 Magnesium Level 0.9 Total Bilirubin 0.6 0.7 Aspartate Amino Transf 19 19 (AST/SGOT) Alanine Aminotransferase 9 8 (ALT/SGPT) Alkaline Phosphatase 46 45 Troponin I LESS THAN 0.02 Total Protein 6.8 6.7 Albumin 2.5 2.6 Lipase 101 Digoxin Level 1.4 Date/Time Procedure Status Source Growth 06/01/16 18:00 Urine Culture Received Urine Clean Catch Pending Result Diagram: 06/02/16 0750 06/02/16 0750 Imaging Last 72 hours Impressions Abdomen/Pelvis CT 06/01/16 0416 Signed Impressions: Service Date/Time: Wednesday, June 01, 2016 18:09 - CONCLUSION: Mild bowel wall thickening in the transverse colon. This could represent mild colitis. Scattered diverticula in the sigmoid colon. I do not any active diverticulitis in the sigmoid colon. One tiny bubble of air is present in the bladder, non-specific. Roni Shook MD FACR Assessment and Plan Problem List: (1) Colitis Status: Acute Plan: Started on flagyl and cipro in ER will continue. Denies abdominal pain this am. GI consulted. (2) UTI (urinary tract infection) Status: Acute Plan: On ciprofloxacin. Cultures are pending. (3) Chest discomfort Status: Acute Plan: Denies any chest discomfort this AM. Trop negative will add repeat today. Cardiology consulted. (4) COPD (chronic obstructive pulmonary disease) Status: Acute Plan: No SOB noted. Continue Symbicort, albuterol and ProAir. (5) Electrolyte disturbance Status: Acute Plan: Replacement initiated yesterday for low magnesium and calcium. Potassium at 3.1 replacement added. Will recheck magnesium and calcium today. Will add phosphorus level. (6) Chronic narcotic dependence Status: Acute Plan: Patient on chronic pain medication per Dr. Cochran. Dr. Cifuentes discussed with patient and the need to reduce use. Dr. Cifuentes will decrease pain medication. Clonidine ordered PRN for HTN (7) Hypertension, benign Status: Chronic Plan: Continue lisinopril and clonidine added PRN Discussed Condition With Assessment and plan discussed with Dr. Cifuentes Discharge Planning Plan to discharge to [facility] Problem Qualifiers (1) UTI (urinary tract infection): Qualified Code: N30.00 - Acute cystitis without hematuria Cailin Sorenson Jun 02, 2016 13:34
[2016-06-02] MEDS: cloNIDine HCL 0.1 MG TAB PO SCH ×2 (14:44→22:49)
[2016-06-02] MEDS: CALCIUM GLUCONATE 500 MG TAB PO SCH (16:57)
[2016-06-02] MEDS ORDERED: POTASSIUM CHLORIDE 20 MEQ CONTROLLED RELEASE TAB PO ONE (18:00)
[2016-06-02] MEDS: CIPROFLOXACIN 400 MG PREMIX 200 ML IV SCH (18:18)
--- NOTE | 2016-06-02 19:30 | EKG ---
Date Performed: 06/01/2016 Time Performed: 20:21:06 PTAGE: 66 years EKG: Sinus rhythm with 1st degree A-V block rSr'(V1) - probable normal variant Infero-lateral ST-T depression suggest ischemia Abnormal ECG PREVIOUS TRACING : 05/02/2016 17.13 DOCTOR: Ilir Ruiz Interpretating Date/Time 06/02/2016 19:28:48
[2016-06-02] MEDS ORDERED: SODIUM CHLORIDE 0.9% FLUSH 5 ML FLUSH FLUSH SCH (21:00)
[2016-06-02] MEDS: metroNIDAZOLE 500 MG INJ 100 ML IV SCH (22:41)
[2016-06-02] MEDS: POTASSIUM CHLORIDE 20 MEQ CONTROLLED RELEASE TAB PO SCH (23:01)
[2016-06-03] VITALS (7 sets, daily range): BP systolic 116–153; BP diastolic 65–83; PULSE 90–95; RESP 17–20; TEMP 96.9–97.6; O2SAT 93–98
[2016-06-03] MEDS: metroNIDAZOLE 500 MG INJ 100 ML IV SCH ×3 (04:47→21:34)
[2016-06-03] MEDS: oxyCODONE/ACETAMINOPHEN 10 MG/325 MG TAB PO PRN ×2 (05:02→15:08)
--- NOTE | 2016-06-03 06:09 | HHI.PR ---
Objective Vital Signs Date Time Temp Pulse Resp B/P Pulse Ox O2 Delivery O2 Flow Rate FiO2 06/03/16 00:00 97.6 92 18 148/75 97 06/02/16 23:37 20 06/02/16 23:37 20 06/02/16 20:20 98 21 06/02/16 20:00 97.6 99 20 194/88 98 06/02/16 12:00 97.2 88 18 155/77 97 06/02/16 08:21 96 21 06/02/16 08:00 87 06/02/16 08:00 97.4 84 20 169/75 97 I/O 06/02/16 06/02/16 06/02/16 06/03/16 06/03/16 06/03/16 07:00 15:00 23:00 07:00 15:00 23:00 Intake Total 660 ml 525 ml 600 ml Output Total 150 ml 500 ml Balance 510 ml 525 ml 600 ml -500 ml Intake Oral 660 ml 525 ml IV Total 600 ml Output Urine Total 150 ml 500 ml # Voids 8 4 1 4 # Bowel Movements 0 1 Result Diagram: 06/02/16 0750 06/02/16 0750 Assessment and Plan Problem List: (1) Colitis Status: Acute Plan: Started on flagyl and cipro in ER will continue. Denies abdominal pain this am. GI consulted. (2) UTI (urinary tract infection) Status: Acute Plan: On ciprofloxacin. Cultures are pending. (3) Chest discomfort Status: Acute Plan: Denies any chest discomfort this AM. Trop negative will add repeat today. Cardiology consulted. (4) COPD (chronic obstructive pulmonary disease) Status: Acute Plan: No SOB noted. Continue Symbicort, albuterol and ProAir. (5) Electrolyte disturbance Status: Acute Plan: Replacement initiated yesterday for low magnesium and calcium. Potassium at 3.1 replacement added. Will recheck magnesium and calcium today. Will add phosphorus level. (6) Chronic narcotic dependence Status: Acute Plan: Patient on chronic pain medication per Dr. Cochran. Dr. Cifuentes discussed with patient and the need to reduce use. Dr. Cifuentes will decrease pain medication. Clonidine ordered PRN for HTN (7) Hypertension, benign Status: Chronic Plan: Continue lisinopril and clonidine added PRN Problem Qualifiers (1) UTI (urinary tract infection): Qualified Code: N30.00 - Acute cystitis without hematuria Cailin Sorenson Jun 03, 2016 06:09
[2016-06-03] MEDS: CIPROFLOXACIN 400 MG PREMIX 200 ML IV SCH ×2 (06:19→17:12)
[2016-06-03] MEDS: cloNIDine HCL 0.1 MG TAB PO SCH ×3 (06:21→21:38)
[2016-06-03] MEDS: oxyCODONE HCL 10 MG CONTROLLED RELEASE TAB PO SCH ×3 (06:21→21:38)
[2016-06-03] MEDS: RESP: ALBUTEROL 1.25 MG/3 ML NEB (SCH) NEB ×4 (07:29→19:20)
[2016-06-03 07:58] LABS: AUTOMATED NEUTROPHIL # 4.9 TH/MM3 (1.8-7.7); BASOPHIL % 0.4 % (0.0-2.0); EOSINOPHIL % 0.4 % (0.0-4.0); HEMATOCRIT 33.2 % (35.0-46.0); HEMO FLAGS DIFF FINAL; LYMPHOCYTE # 1.9 TH/MM3 (1.0-4.8); MEAN CELL VOLUME 104.7 FL (80.0-100.0); MEAN CORPUSCULAR HEMOGLOBIN 34.4 PG (27.0-34.0); MEAN CORPUSCULAR HGB CONC 32.9 % (32.0-36.0); MONO % 9.6 % (0.0-8.0); NEUT % 63.6 % (16.0-70.0); PLATELET COUNT 123 TH/MM3 (150-450); RED BLOOD COUNT 3.17 MIL/MM3 (4.00-5.30); RED CELL DISTRIBUTION WIDTH 18.3 % (11.6-17.2); WHITE BLOOD COUNT 7.5 TH/MM3 (4.0-11.0)
[2016-06-03 08:17] LABS: BICARBONATE 27.2 MEQ/L (21.0-32.0); CALCIUM-PROTEIN CORRECTED 7.7 MG/DL (8.5-10.1); MAGNESIUM 1.2 MG/DL (1.5-2.5); TOTAL BILIRUBIN ADULT 0.5 MG/DL (0.2-1.0)
--- NOTE | 2016-06-03 08:37 | MB ---
cc: MARKEL STATON DATE OF CONSULTATION 06/02/2016 REASON FOR CONSULTATION Ms. Robertson is a 66 year-old white female with a history of hypertension, gastroesophageal reflux disease, and COPD. She has had intermittent abdominal pain over the last several months. She presented to the emergency room with sharp upper abdominal pain without radiation associated with nausea and vomiting. She has not had any clear chest pain. She saw Dr. Arevalo and had sigmoidoscopy. PAST MEDICAL HISTORY Positive for: 1. Tachycardia treated with Digoxin. 2. History of myeloproliferative syndrome. 3. COPD 4. Atrial fibrillation 5. Emphysema 6. Gastroesophageal reflux disease 7. CVA 8. Hepatitis C 9. Hypertension 10. Migraine headaches 11. History of cholecystectomy. 12. Hernia repair 13. Bladder surgery 14. Breast lumpectomy 15. Hysterectomy MEDICATIONS At home include: 1. OxyContin 2. Oxycodone 3. Soma 4. Hydroxyurea 5. Trilipix 6. Treximet 7. Lanoxin 0.25 mg daily 8. Baby aspirin 9. Cyanocobalamin 10. Albuterol 11. Advair discus 12. Ventolin 13. Temazepam 14. Benadryl 15. Bethanechol 16. Ditropan 17. Toviaz 18. Lisinopril 5 mg daily 19. Zofran 20. Metoprolol 12.5 mg q12h 21. Pantoprazole ALLERGIES PROCARDIA, PENICILLIN, INDOCIN, INDERAL, BACTRIM. SOCIAL HISTORY The patient quit smoke three years ago. She does not drink alcohol. She is accompanied by her . FAMILY HISTORY Negative for heart disease. REVIEW OF SYSTEMS Otherwise negative. PHYSICAL EXAM Blood pressure 155/77, pulse 88 and regular. HEAD, EYES, EARS, NOSE, AND THROAT: Negative. 2+carotid upstrokes. No bruits. LUNGS: Clear. HEART: Regular with no murmur, gallop, rub. ABDOMEN: Soft, no bruits. EXTREMITIES: Without edema. 2+ distal pulses. NEUROLOGIC: Grossly nonfocal. The patient is mildly confused. EKG was reviewed and shows a normal sinus rhythm, first degree AV block, LVH and diffuse STT. LABS Hemoglobin 11.4, potassium 3.1, creatinine 0.4, troponin normal. AST and ALT normal. Lipase normal. DIAGNOSIS 1. Colitis 2. Hypertension 3. COPD 4. Tachycardia 5. Atypical chest discomfort 6. Abnormal EKG 7. Chronic narcotic dependence 8. Electrolytes disturbance 9. UTI DISPOSITION Ms. Robertson has had no recurrent chest discomfort. Her EKG is abnormal, but her troponin is normal. Her symptoms are likely of GI origin secondary to colitis and possibly also secondary to UTI. She will be monitored on telemetry. I will see her back for followup in our office as an outpatient shortly after discharge. We will obtain further cardiology evaluation including nuclear stress test at that time. MD CHITO De Jesus/MOHAN /5:14 PM /8:24 AM KEATON
[2016-06-03] MEDS: PANTOPRAZOLE SOD 40 MG DELAYED RELEASE TAB PO SCH (09:28)
[2016-06-03] MEDS: POTASSIUM CHLORIDE 20 MEQ CONTROLLED RELEASE TAB PO SCH (09:28)
[2016-06-03] MEDS: FENOFIBRATE 145 MG TAB PO SCH (09:28)
[2016-06-03] MEDS: LISINOPRIL 5 MG TAB PO SCH (09:29)
[2016-06-03] MEDS: SODIUM CHLORIDE 0.9% FLUSH 5 ML FLUSH IVF SCH ×2 (09:29→21:39)
[2016-06-03] MEDS: BUDESONIDE-FORMOTEROL 80/4.5 MCG INHALER INH SCH ×2 (09:29→21:37)
[2016-06-03] MEDS: CALCIUM GLUCONATE 500 MG TAB PO SCH (09:29)
[2016-06-03] MEDS: ASPIRIN EC 81 MG TABEC PO SCH (09:29)
[2016-06-03] MEDS: HYDROXYUREA 500 MG CAP PO SCH ×2 (09:31→21:33)
[2016-06-03] MEDS ORDERED: INFLUENZA VIRUS VACCINE (QUADRIVALENT) 0.5 ML SYR IM ONE (10:00)
[2016-06-03] MEDS ORDERED: PNEUMOCOCCAL POLYVALENT INJ 25 MCG/0.5 ML SYR IM ONE (10:00)
--- NOTE | 2016-06-03 11:27 | HHI.PR ---
Subjective Remarks Patient seen at bedside. Denies any chest pain or SOB. Reports some nausea and abdominal discomfort. Also reports back and neck pain. Objective Vital Signs Date Time Temp Pulse Resp B/P Pulse Ox O2 Delivery O2 Flow Rate FiO2 06/03/16 08:40 96.9 90 17 116/65 93 06/03/16 07:30 93 21 06/03/16 07:21 20 06/03/16 07:21 20 06/03/16 06:17 20 06/03/16 00:00 97.6 92 18 148/75 97 06/02/16 20:30 86 06/02/16 20:20 98 21 06/02/16 20:00 97.6 99 20 194/88 98 06/02/16 12:00 97.2 88 18 155/77 97 I/O 06/02/16 06/02/16 06/02/16 06/03/16 06/03/16 06/03/16 06:59 14:59 22:59 06:59 14:59 22:59 Intake Total 660 ml 525 ml 600 ml Output Total 150 ml 500 ml Balance 510 ml 525 ml 100 ml Intake Oral 660 ml 525 ml IV Total 600 ml Output Urine Total 150 ml 500 ml # Voids 8 4 7 # Bowel Movements 0 1 Result Diagram: 06/03/16 0738 06/03/16 0738 Imaging Last 72 hours Impressions Abdomen/Pelvis CT 06/01/16 1746 Signed Impressions: Service Date/Time: Wednesday, June 01, 2016 18:09 - CONCLUSION: Mild bowel wall thickening in the transverse colon. This could represent mild colitis. Scattered diverticula in the sigmoid colon. I do not any active diverticulitis in the sigmoid colon. One tiny bubble of air is present in the bladder, non-specific. Roni Shook MD FACR Other Results GENERAL: This is a well-developed patient in no apparent distress. SKIN: No rashes or lesions. Cool and dry. HEAD: Atraumatic. Normocephalic. EYES: Pupils equal round and reactive. . NECK: Trachea midline. No JVD . Neck supple and nontender, no meningeal signs. CARDIOVASCULAR: Regular rate and rhythm without murmurs, gallops, or rubs. RESPIRATORY: Clear to auscultation. Breath sounds equal bilaterally. No wheezes , rales, or rhonchi. GASTROINTESTINAL: Abdomen soft, non-tender, nondistended. No hepato-splenomegaly , or palpable masses. No guarding. MUSCULOSKELETAL: Extremities without cyanosis or edema. No joint tenderness, effusion, or edema noted. No calf tenderness. Negative Homans sign bilaterally. NEUROLOGICAL: Awake and alert. Speech delayed. Medications and IVs Current Medications Medications (Trade) Dose Ordered Sig/Diane Route Start Time Stop Time Status Last Admin (NS Flush) 2 ml BID IVF 06/01/16 21:00 06/03/16 09:29 (NS Flush) 2 ml UNSCH PRN IVF 06/01/16 20:45 (Narcan Inj) 0.4 mg UNSCH PRN IV 06/01/16 21:00 (Proair Hfa Inh) 1 puff Q4H PRN INH 06/01/16 22:30 06/02/16 09:22 (Ecotrin Ec) 81 mg DAILY PO 06/02/16 09:00 06/03/16 09:29 (Hydrea) 500 mg Q12HR PO 06/02/16 09:00 06/03/16 09:31 (Prinivil) 5 mg DAILY PO 06/02/16 09:00 06/03/16 09:29 (Protonix) 40 mg DAILY PO 06/02/16 09:00 06/03/16 09:28 (Tricor) 145 mg DAILY PO 06/01/16 23:00 06/03/16 09:28 (Symbicort 80-4.5 Mcg Inh) 2 puff BID INH 06/02/16 09:00 06/03/16 09:29 (Zofran Odt) 8 mg TID PRN PO 06/01/16 22:45 (Roxicodone) 30 mg Q8H PRN PO 06/01/16 23:45 06/03/16 06:20 (OxyCONTIN CR) 10 mg Q8HR PO 06/02/16 06:00 06/03/16 06:21 (Percocet 10-325 Mg) 1 tab Q4H PRN PO 06/02/16 00:00 06/03/16 05:02 (Catapres) 0.1 mg Q6H PRN PO 06/02/16 12:00 (Calcium Gluconate) 1,000 mg DAILY PO 06/02/16 16:00 06/03/16 09:29 (Catapres) 0.1 mg Q8HR PO 06/02/16 14:15 06/03/16 06:21 Potassium Chloride 20 meq 20 meq Q12HR PO 06/02/16 21:00 06/03/16 09:28 Ciprofloxacin/ Dextrose 200 ml @ 200 mls/hr Q12H IV 06/02/16 18:00 06/03/16 06:19 (Flagyl 500 Mg Inj) 100 ml @ 100 mls/hr Q8H IV 06/02/16 20:00 06/03/16 04:47 Assessment and Plan Problem List: (1) Colitis Status: Acute Plan: On flagyl and cipro in will continue until seen by GI for recommendations. . Reports some abdominal discomfort, poor appetite, and nausea this am. GI consulted. (2) UTI (urinary tract infection) Status: Acute Plan: On ciprofloxacin. Cultures are pending. (3) Altered mental status Status: Acute Plan: Head CT ordered and neuro consulted. Risperdal added. (4) Chest discomfort Status: Acute Plan: Denies any chest discomfort this AM. Trop negative will add repeat today. Cardiology consulted no new changes and will follow up outpatient (5) COPD (chronic obstructive pulmonary disease) Status: Acute Plan: No SOB noted. Continue Symbicort, albuterol and ProAir. (6) Electrolyte disturbance Status: Acute Plan: Electrolyte continue to be abnormal. Potassium, magnesium, and phos replacement added. (7) Chronic narcotic dependence Status: Acute Plan: Patient on chronic pain medication per Dr. Cochran. Dr. Cifuentes discussed with patient and the need to reduce use. Dr. Cifuentes will decrease pain medication. Clonidine ordered for HTN (8) Hypertension, benign Status: Chronic Plan: Continue lisinopril and clonidine added (9) Weakness generalized Status: Acute Plan: Case management consulted for referral to [facility] Discussed Condition With Assessment and plan discussed with Dr. Cifuentes Discharge Planning Plan to discharge to Rehab facility Problem Qualifiers (1) UTI (urinary tract infection): Qualified Code: N30.00 - Acute cystitis without hematuria Cailin Sorenson Jun 03, 2016 11:27
[2016-06-03] MEDS ORDERED: POTASSIUM CHLORIDE 20 MEQ CONTROLLED RELEASE TAB PO ONE (11:30)
[2016-06-03] MEDS: MAGNESIUM SULFATE 1 GM PREMIX 100 ML IV SCH ×2 (12:55→15:07)
[2016-06-03] MEDS ORDERED: POTASSIUM PHOSPHATE INJ 15 MMOL in SODIUM CHLORIDE 0.9% INJ 150 ML IV ONE (13:00)
--- NOTE | 2016-06-03 19:09 | MB ---
cc: FRANK MORALES DATE OF CONSULTATION 06/03/2016 DATE OF 1950 REASON FOR CONSULTATION Abdominal pain, possible colitis. BRIEF HISTORY OF PRESENT ILLNESS Ms. Robertson is a pleasant 66-year-old lady with a past medical history significant for hypertension, gastroesophageal reflux disease, COPD, myeloproliferative blood disease, pancreatitis known to our GI service who presented to the hospital with complaints of abdominal pain. She reports pain has been on and off for the last couple of months, sometimes located in the lower abdomen and other times in the upper abdomen. She has had an extensive GI workup in the past including endoscopy, colonoscopy, endoscopic ultrasound, imaging studies as well. She also carries a diagnosis of gastroparesis. She was recently hospitalized last month for a similar episode of abdominal pain, at that time imaging did show some evidence of pancreatic inflammation concerning for possible pancreatitis as well as diffuse thickening in the bowel. For this reason she underwent a flexible sigmoidoscopy performed by Dr. Nieves which was unremarkable with normal colonic biopsies. At the time of the interview, the patient reports the pain is somewhat better, she has been able to tolerate diet and actually wants to go home. Again reports the pain is diffuse, sometimes travels from the lower abdomen to the upper abdomen, associated with nausea and vomiting. She does have a history of chronic pain and uses medications by her pain management doctor. CT scan during this admission and did show minimal bowel wall thickening in the transverse colon that could be secondary to mild colitis. She has been started on antibiotics for this reason. PAST MEDICAL HISTORY 1. Hypertension. 2. Gastroesophageal reflux disease. 3. Chronic pain. 4. COPD. 5. Myeloproliferative blood disease. 6. Pancreatitis. 7. Gastroparesis. ALLERGIES SHE IS ALLERGIC TO BACTRIM, INDERAL, INDOCIN, PENICILLIN AND PROCARDIA. FAMILY HISTORY No history of colon cancer. SOCIAL HISTORY She quit smoking three years ago. She does not drink or use durgs. MEDICATIONS AT HOME Include: 1. OxyContin. 2. Oxycodone. 3. Soma. 4. Hydroxyurea. 5. Trilipix. 6. Treximet. 7. Lanoxin. 8. Baby aspirin. 9. Albuterol. 10. Advair. 11. Benadryl. 12. Ditropan. 13. Lisinopril 5 milligrams daily. 14. Zofran. 15. Metoprolol 12.5 milligrams p.o. q.12h. 16. Pantoprazole 40 milligrams daily. REVIEW OF SYSTEMS Positive for nausea, vomiting, abdominal pain, otherwise 14 point review of symptoms negative. PHYSICAL EXAMINATION VITAL SIGNS: Temperature is 97.3, respiratory rate 22, blood pressure 140/71. Heart rate of 93. GENERAL: She is in no acute distress, lying comfortably in bed. HEENT: Normocephalic, atraumatic. Extraocular muscles intact, pupils equal, round, reactive to light and accommodation. Nonicteric sclera. Moist mucosa. NECK: Supple. No JVD. CARDIOVASCULAR: Regular rhythm and rate. S1-S2. No murmurs, rubs, or gallops. LUNGS: She has decreased breath sounds in bases bilaterally. ABDOMEN: Soft, mildly tender to palpation in the lower abdomen, no guarding. Bowel sounds are present. EXTREMITIES: No cyanosis or edema. NEUROLOGICAL: She is alert, oriented x3. Cranial nerves intact. No focal deficits. LABORATORY DATA White blood cell count is 7.5, hemoglobin 10.9 with an MCV of 104.7, platelet count 123. Sodium 143, potassium 3.0, chloride 105, bicarbonate 27.2. AST 17, ALT 9, alkaline phosphatase 42. Albumin of 2.5, creatinine of 0.57, BUN of 2. IMAGING STUDIES CT abdomen and pelvis showed mild bowel thickening in the transverse colon. Scattered diverticula in the sigmoid with no acute diverticulitis. ASSESSMENT Ms. Robertson is a 66-year-old lady with a past medical history significant for chronic pain, myeloproliferative disorder, gastroparesis, recent episode of pancreatitis presenting with diffuse abdominal pain for the last few weeks. CT scan of the abdomen showing mild thickening in the transverse colon, concerning for colitis. PLAN Abdominal pain / abnormal CT scan. The patient has had an extensive workup for these issues in the past including endoscopic evaluation and imaging. Pain may be multifactorial from gastroparesis and questionable colitis. She was started on empiric antibiotics with Cipro and Flagyl. We can continue this for now and complete a 7-day course if she is discharged. The patient seems to be tolerating diet well and actually wants to go home. At this point we do not plan to repeat endoscopic studies, she had a recent flexible sigmoidoscopy last month which was unremarkable with normal colonic biopsies. At that time the CT scan of the abdomen showed diffuse thickening in the entire colon. Imaging results actually may be residual from recent episode. We can potentially follow up in the clinic after she completes the course of antibiotics. We would like to thank Dr. Cifuentes for this consultation and letting us participate in the care of Ms. Robertson. We will follow the patient along with you. 5 MD PRESTON Martin/KK /4:34 PM /6:40 PM
--- NOTE | 2016-06-03 20:23 | MB ---
cc: RADHA SINGLETON MD DATE OF CONSULTATION: 06/03/2016 REASON FOR CONSULTATION: Altered mental status. HISTORY OF PRESENT ILLNESS The patient is a 66-year-old female who presented to the emergency room at [facility] for abdominal pain. The patient has had past medical history of hypertension, GERD, chronic pain, COPD and myeloproliferative disease. The patient is on high doses of several pain medication, narcotics. She was noted today by the attending team that she was confused with occasional slurring of speech so neurology was consulted. REVIEW OF SYSTEMS A 12-point review of systems is negative except for what is stated in the HPI. PAST MEDICAL HISTORY 1. Anemia. 2. Myeloproliferative blood disorder. 3. Asthma 4. Atrial fibrillation 5. Emphysema 6. COPD. 7. GERD. PAST SURGICAL HISTORY 1. Tubal ligation. 2. Hernia repair. 3. Cholecystectomy. 4. Bladder suspension. 5. Left breast lumpectomy. FAMILY HISTORY Mother of heart disease. Father unknown medical history. SOCIAL HISTORY: She quit smoking over three years ago, denies alcohol use and illicit drug use. Lives with her . ALLERGIES BACTRIM, INDERAL, INDOCIN, PENICILLIN, PROCARDIA PHYSICAL EXAMINATION: The patient is not in apparent distress, appears anxious, rather good historian. Skin: No rashes or lesions. HEENT: Atraumatic, normocephalic. Intact vision, intact hearing Neck: No signs of meningeal irritation. Trachea is in the midline. No increased JVD. Cardiovascular: Regular rate and rhythm without murmurs. Respiratory: Clear to auscultation. No wheezes. Musculoskeletal: Extremities without clubbing, cyanosis or edema. Moves all extremities equally. Neurological: Awake, alert, oriented to place ([place]), person, not to year (2010), but to month,(May), and to place, ([facility]). Mild inconsistent slurring of speech, intact speech content. Intact naming, intact repetition. Pupils are equal, normal, reacting to light. No nystagmus. No diplopia. No facial asymmetry. Intact facial sensation. Normal movements of the tongue. Normal elevation of the uvula. Intact trapezius and sternocleidomastoid muscles. MOTOR SYSTEM EXAMINATION: Bilateral upper extremities and lower extremities 5/5, normal tone bilateral, fine action tremor with nonsustained asterixis. Sensation is intact bilateral and symmetrical throughout. Cerebellar function intact. Rpmvvq-sd-[id number] and itmr-yg-alup bilateral and symmetrical. Reflexes are 2+ bilateral and symmetrical. Plantars are bilateral and downgoing. LABORATORY DATA: White blood cells 7.7, hemoglobin 11.3, MCV 104.3, sodium 145, potassium 3.1, chloride 107, anion gap 11, BUN 4, creatinine 0.44, random glucose 117, lactic acid 112, magnesium 0.9. AST 19, ALT 8, alkaline phosphatase 45, albumin 2.5, lipase 101. Urine exam positive for bacteria, white blood cells and RBCs. DIAGNOSTIC IMPRESSION - Encephalopathy Possible etiologies are polypharmacy overdose/infectious/metabolic in origin. PLAN 1. Neuro checks q.[address] scan. 3. Management of infection and replenish electrolyte disturbances by the attending primary team. 4. DVT prophylaxis, SCDs. 5. Fall precautions. 6. GI prophylaxis. 7. Modification and minimize the use of opiate medication by the primary attending team. Thank you for the opportunity to participate in the care of your patient. Radha Singleton MD RGO/YASH /6:44 PM /8:10 PM KEATON
[2016-06-03] MEDS ORDERED: POTASSIUM CHLORIDE 20 MEQ CONTROLLED RELEASE TAB PO SCH (21:00)
[2016-06-03] MEDS: POTASSIUM CL 40 MEQ/30 ML LIQ UDC PO SCH (21:38)
[2016-06-03] MEDS: risperiDONE 0.25 MG TAB PO SCH (21:38)
[2016-06-04] VITALS (8 sets, daily range): BP systolic 99–177; BP diastolic 60–96; PULSE 85–114; RESP 15–20; TEMP 96.3–97.9; O2SAT 91–99
[2016-06-04] MEDS: oxyCODONE HCL 10 MG CONTROLLED RELEASE TAB PO SCH ×3 (05:19→21:02)
[2016-06-04] MEDS: cloNIDine HCL 0.1 MG TAB PO SCH ×3 (05:20→21:02)
[2016-06-04] MEDS: metroNIDAZOLE 500 MG INJ 100 ML IV SCH ×3 (05:20→20:56)
[2016-06-04] MEDS: oxyCODONE/ACETAMINOPHEN 10 MG/325 MG TAB PO PRN (05:25)
[2016-06-04] MEDS: CIPROFLOXACIN 400 MG PREMIX 200 ML IV SCH ×2 (06:09→18:01)
[2016-06-04 06:39] LABS: AUTOMATED NEUTROPHIL # 5.2 TH/MM3 (1.8-7.7); BASOPHIL % 0.6 % (0.0-2.0); EOSINOPHIL % 0.6 % (0.0-4.0); HEMO FLAGS DIFF FINAL; LYMPH % 23.9 % (9.0-44.0); LYMPHOCYTE # 1.8 TH/MM3 (1.0-4.8); MEAN CELL VOLUME 104.9 FL (80.0-100.0); MEAN CORPUSCULAR HGB CONC 32.5 % (32.0-36.0); MONO % 8.3 % (0.0-8.0); NEUT % 66.6 % (16.0-70.0); PLATELET COUNT 130 TH/MM3 (150-450); RED BLOOD COUNT 3.24 MIL/MM3 (4.00-5.30); WHITE BLOOD COUNT 7.6 TH/MM3 (4.0-11.0)
[2016-06-04 06:58] LABS: CHLORIDE 108 MEQ/L (98-107); POTASSIUM 3.6 MEQ/L (3.5-5.1); SODIUM (NA) 145 MEQ/L (136-145)
[2016-06-04 07:04] LABS: ANION GAP 11 MEQ/L (5-15); BLOOD UREA NITROGEN 2 MG/DL (7-18)
[2016-06-04 07:05] LABS: MAGNESIUM 1.5 MG/DL (1.5-2.5)
[2016-06-04 07:07] LABS: ALT (GPT) 10 U/L (10-53); AST (GOT) 21 U/L (15-37); GLOMERULAR FILTRATION RATE 113 ML/MIN (>89)
[2016-06-04 07:09] LABS: TOTAL BILIRUBIN ADULT 0.5 MG/DL (0.2-1.0)
[2016-06-04 07:10] LABS: ALKALINE PHOSPHATASE 44 U/L (45-117)
[2016-06-04] MEDS: RESP: ALBUTEROL 1.25 MG/3 ML NEB (SCH) NEB ×4 (07:21→20:27)
--- NOTE | 2016-06-04 08:23 | RADHPO ---
EXAM DATE/TIME: 06/04/2016 08:00 [place] COMPARISON: No previous studies available for comparison. INDICATIONS : Altered mental status. Episodes of memory loss. RADIATION DOSE: 57.29 CTDIvol (mGy) MEDICAL HISTORY : Cerebrovascular disease. Hypertension. Chronic obstructive pulmonary disease. SURGICAL HISTORY : Tubal ligation. Hysterectomy.Cholecystectomy.Hernia repair. ENCOUNTER: Initial ACUITY: 2 days PAIN SCALE: 0/10 LOCATION: cranial TECHNIQUE: Multiple contiguous axial images were obtained of the head. Using automated exposure control and adj ustment of the mA and/or kV according to patient size, radiation dose was kept as low as reasonably a chievable to obtain optimal diagnostic quality images. FINDINGS: There is no evidence of acute cortical infarction, acute hemorrhage, mass effect or midline shift. Bi frontal atrophy is present. Posterior fossa structures are unremarkable with the exception of atrophy . CONCLUSION: 1. No evidence of acute intracranial pathology. No masses are identified. 2. Bifrontal and cerebellar atrophy Theodore Hammond MD on June 04, 2016 at 8:20 Board Certified Radiologist. This report was verified electronically.
[2016-06-04] MEDS: BUDESONIDE-FORMOTEROL 80/4.5 MCG INHALER INH SCH ×2 (09:51→20:57)
[2016-06-04] MEDS: POTASSIUM CL 40 MEQ/30 ML LIQ UDC PO SCH ×2 (09:53→20:57)
[2016-06-04] MEDS: PANTOPRAZOLE SOD 40 MG DELAYED RELEASE TAB PO SCH (09:54)
[2016-06-04] MEDS: risperiDONE 0.25 MG TAB PO SCH ×2 (09:54→20:57)
[2016-06-04] MEDS: CALCIUM GLUCONATE 500 MG TAB PO SCH (09:54)
[2016-06-04] MEDS: ASPIRIN EC 81 MG TABEC PO SCH (09:54)
[2016-06-04] MEDS: FENOFIBRATE 145 MG TAB PO SCH (09:54)
[2016-06-04] MEDS: LISINOPRIL 5 MG TAB PO SCH (09:54)
[2016-06-04] MEDS: HYDROXYUREA 500 MG CAP PO SCH ×2 (09:55→21:04)
[2016-06-04] MEDS: SODIUM CHLORIDE 0.9% FLUSH 5 ML FLUSH IVF SCH ×2 (09:55→20:57)
--- NOTE | 2016-06-04 11:47 | HHI.PR ---
Subjective Remarks Patient seen at bedside. Denies any chest pain or SOB. Does not report any pain during rounding. Mentation improved. Objective Vital Signs Date Time Temp Pulse Resp B/P Pulse Ox O2 Delivery O2 Flow Rate FiO2 06/04/16 09:07 96.3 92 16 128/84 94 06/04/16 07:21 95 21 06/04/16 04:00 97.0 114 20 160/83 94 06/04/16 00:00 97.9 85 20 99/60 91 06/03/16 20:30 95 06/03/16 20:00 96.9 92 20 153/83 97 06/03/16 19:20 98 21 06/03/16 16:24 22 06/03/16 13:56 18 06/03/16 13:32 97.3 94 20 140/71 96 I/O 06/03/16 06/03/16 06/03/16 06/04/16 06/04/16 06/04/16 07:00 15:00 23:00 07:00 15:00 23:00 Intake Total 240 ml Output Total 500 ml 1 ml Balance -500 ml 239 ml Intake Oral 240 ml Output Urine Total 500 ml Stool Total 1 ml # Voids 6 4 1 # Bowel Movements 0 Result Diagram: 06/04/16 0620 06/04/16 0620 Other Results GENERAL: This is a well-developed patient in no apparent distress. SKIN: No rashes or lesions. Cool and dry. HEAD: Atraumatic. Normocephalic. EYES: Pupils equal round and reactive. . NECK: Trachea midline. No JVD . Neck supple and nontender, no meningeal signs. CARDIOVASCULAR: Regular rate and rhythm without murmurs, gallops, or rubs. RESPIRATORY: Clear to auscultation. Breath sounds equal bilaterally. No wheezes , rales, or rhonchi. GASTROINTESTINAL: Abdomen soft, non-tender, nondistended. No hepato-splenomegaly , or palpable masses. No guarding. MUSCULOSKELETAL: Extremities without cyanosis or edema. No joint tenderness, effusion, or edema noted. No calf tenderness. Negative Homans sign bilaterally. NEUROLOGICAL: Awake and alert. Speech delayed. Medications and IVs Current Medications Medications (Trade) Dose Ordered Sig/Diane Route Start Time Stop Time Status Last Admin (NS Flush) 2 ml BID IVF 06/01/16 21:00 06/04/16 09:55 (NS Flush) 2 ml UNSCH PRN IVF 06/01/16 20:45 (Narcan Inj) 0.4 mg UNSCH PRN IV 06/01/16 21:00 (Proair Hfa Inh) 1 puff Q4H PRN INH 06/01/16 22:30 06/02/16 09:22 (Ecotrin Ec) 81 mg DAILY PO 06/02/16 09:00 06/04/16 09:54 (Hydrea) 500 mg Q12HR PO 06/02/16 09:00 06/04/16 09:55 (Prinivil) 5 mg DAILY PO 06/02/16 09:00 06/04/16 09:54 (Protonix) 40 mg DAILY PO 06/02/16 09:00 06/04/16 09:54 (Tricor) 145 mg DAILY PO 06/01/16 23:00 06/04/16 09:54 (Symbicort 80-4.5 Mcg Inh) 2 puff BID INH 06/02/16 09:00 06/04/16 09:51 (Zofran Odt) 8 mg TID PRN PO 06/01/16 22:45 (OxyCONTIN CR) 10 mg Q8HR PO 06/02/16 06:00 06/04/16 05:19 (Percocet 10-325 Mg) 1 tab Q4H PRN PO 06/02/16 00:00 06/04/16 05:25 (Catapres) 0.1 mg Q6H PRN PO 06/02/16 12:00 (Calcium Gluconate) 1,000 mg DAILY PO 06/02/16 16:00 06/04/16 09:54 Clonidine 0.1 mg 0.1 mg Q8HR PO 06/02/16 14:15 06/04/16 05:20 Ciprofloxacin/ Dextrose 200 ml @ 200 mls/hr Q12H IV 06/02/16 18:00 06/04/16 06:09 (Flagyl 500 Mg Inj) 100 ml @ 100 mls/hr Q8H IV 06/02/16 20:00 06/04/16 05:20 (risperDAL) 0.25 mg Q12HR PO 06/03/16 21:00 06/04/16 09:54 (KCl 40 Meq/30 ml Liq) 40 meq Q12HR PO 06/03/16 21:00 06/04/16 09:53 Assessment and Plan Problem List: (1) Colitis Status: Acute Plan: On flagyl and cipro will continue for 7 days with stop date on seen by GI. Will follow up outpatient. No complaints of abdominal pain. (2) UTI (urinary tract infection) Status: Acute Plan: On ciprofloxacin. Cultures sensitive to cipro (3) Altered mental status Status: Acute Plan: Head CT ordered no acute findings. Neuro consulted. Risperdal added and nursing reported that patient is much more cooperative. (4) Chest discomfort Status: Acute Plan: Denies any chest discomfort this AM. Trop negative will add repeat today. Cardiology consulted no new changes and will follow up outpatient (5) COPD (chronic obstructive pulmonary disease) Status: Acute Plan: No SOB noted. Continue Symbicort, albuterol and ProAir. (6) Electrolyte disturbance Status: Acute Plan: Potassium wnl. Magnesium continues to be low will replace. Follow up ordered for tomorrow (7) Chronic narcotic dependence Status: Acute Plan: Patient on chronic pain medication per Dr. Cochran. Dr. Cifuentes discussed with patient and the need to reduce use. Dr. Cifuentes will decrease pain medication. Clonidine ordered for HTN (8) Hypertension, benign Status: Chronic Plan: Continue lisinopril and clonidine. B/P well controlled (9) Weakness generalized Status: Acute Plan: Case management consulted for referral to TCU Discussed Condition With Assessment and plan discussed with Dr Cifuentes Discharge Planning SNF Problem Qualifiers (1) UTI (urinary tract infection): Qualified Code: N30.00 - Acute cystitis without hematuria Cailin Sorenson Jun 04, 2016 11:46
[2016-06-04] MEDS: MAGNESIUM SULFATE 1 GM PREMIX 100 ML IV SCH ×2 (12:38→12:43)
--- NOTE | 2016-06-04 13:29 | HHI.GIFU ---
Subjective Remarks Pt sitting comfortably in chair. reports less abdominal pain, tolerating diet. Objective Vitals I&O Vital Signs Date Time Temp Pulse Resp B/P Pulse Ox O2 Delivery O2 Flow Rate FiO2 06/04/16 09:07 96.3 92 16 128/84 94 06/04/16 07:21 95 21 06/04/16 04:00 97.0 114 20 160/83 94 06/04/16 00:00 97.9 85 20 99/60 91 06/03/16 20:30 95 06/03/16 20:00 96.9 92 20 153/83 97 06/03/16 19:20 98 21 06/03/16 16:24 22 06/03/16 13:56 18 06/03/16 13:32 97.3 94 20 140/71 96 I/O 06/03/16 06/03/16 06/03/16 06/04/16 06/04/16 06/04/16 07:00 15:00 23:00 07:00 15:00 23:00 Intake Total 240 ml Output Total 500 ml 1 ml Balance -500 ml 239 ml Intake Oral 240 ml Output Urine Total 500 ml Stool Total 1 ml # Voids 6 4 1 # Bowel Movements 0 Laboratory Laboratory Tests Test 06/04/16 06:20 White Blood Count 7.6 Red Blood Count 3.24 Hemoglobin 11.0 Hematocrit 34.0 Mean Corpuscular Volume 104.9 Mean Corpuscular Hemoglobin 34.0 Mean Corpuscular Hemoglobin 32.5 Concent Red Cell Distribution Width 18.0 Platelet Count 130 Mean Platelet Volume 9.0 Neutrophils (%) (Auto) 66.6 Lymphocytes (%) (Auto) 23.9 Monocytes (%) (Auto) 8.3 Eosinophils (%) (Auto) 0.6 Basophils (%) (Auto) 0.6 Neutrophils # (Auto) 5.2 Lymphocytes # (Auto) 1.8 Monocytes # (Auto) 0.6 Eosinophils # (Auto) 0.0 Basophils # (Auto) 0.0 CBC Comment DIFF FINAL Differential Comment Sodium Level 145 Potassium Level 3.6 Chloride Level 108 Carbon Dioxide Level 26.0 Anion Gap 11 Blood Urea Nitrogen 2 Creatinine 0.54 Estimat Glomerular Filtration 113 Rate Random Glucose 144 Calcium Level 7.7 Magnesium Level 1.5 Total Bilirubin 0.5 Aspartate Amino Transf 21 (AST/SGOT) Alanine Aminotransferase 10 (ALT/SGPT) Alkaline Phosphatase 44 Total Protein 6.5 Albumin 2.6 Date/Time Procedure Status Source Growth 06/01/16 18:00 Urine Culture - Final Complete Urine Clean Catch Klebsiella Pneumoniae Proteus Mirabilis Physical Exam HEENT: Pupils round and reactive to light; normocephalic; atraumatic; no jaundice. Throat is clear. NECK: Neck is supple, no JVD, no lymphadenopathy. ABDOMEN: Soft, nondistended, nontender; no hepatosplenomegaly; bowel sounds are present in all four quadrants. EXTREMITIES: No clubbing, cyanosis, or edema. Assessment and Plan Assessment: (1) Colitis (2) Abdominal pain Plan 1. Abdominal pain/abnormal CT - ? Colitis based on CT, mild thickening in transverse colon - improving, on Cipro and Flagyl - had recent flexsig last month for similar findings, unremarkable with neg colon biopsies - no further endoscopic intervention recommended at this time - continue supportive care and complete 7 days of antibiotics as outpatient - can follow with Dr. Nieves once discharged 2. All other medical problems to be addressed by primary team GI will sign off at this time, please call us with any questions or concerns. Thank you for this consult. Problem Qualifiers (1) Abdominal pain: Qualified Code: R10.84 - Generalized abdominal pain Vladimir Fulton MD Jun 04, 2016 13:29
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
--- NOTE | 2016-06-04 19:18 | PD.CARD.PN ---
Subjective Subjective Remarks No chest pain or sob Objective Medications Current Medications Medications (Trade) Dose Ordered Sig/Diane Route Start Time Stop Time Status Last Admin (NS Flush) 2 ml BID IVF 06/01/16 21:00 06/04/16 09:55 (NS Flush) 2 ml UNSCH PRN IVF 06/01/16 20:45 (Narcan Inj) 0.4 mg UNSCH PRN IV 06/01/16 21:00 (Proair Hfa Inh) 1 puff Q4H PRN INH 06/01/16 22:30 06/02/16 09:22 (Ecotrin Ec) 81 mg DAILY PO 06/02/16 09:00 06/04/16 09:54 (Hydrea) 500 mg Q12HR PO 06/02/16 09:00 06/04/16 09:55 (Prinivil) 5 mg DAILY PO 06/02/16 09:00 06/04/16 09:54 (Protonix) 40 mg DAILY PO 06/02/16 09:00 06/04/16 09:54 (Tricor) 145 mg DAILY PO 06/01/16 23:00 06/04/16 09:54 (Symbicort 80-4.5 Mcg Inh) 2 puff BID INH 06/02/16 09:00 06/04/16 09:51 (Zofran Odt) 8 mg TID PRN PO 06/01/16 22:45 (OxyCONTIN CR) 10 mg Q8HR PO 06/02/16 06:00 06/04/16 12:38 (Percocet 10-325 Mg) 1 tab Q4H PRN PO 06/02/16 00:00 06/04/16 05:25 (Catapres) 0.1 mg Q6H PRN PO 06/02/16 12:00 (Calcium Gluconate) 1,000 mg DAILY PO 06/02/16 16:00 06/04/16 09:54 Clonidine 0.1 mg 0.1 mg Q8HR PO 06/02/16 14:15 06/04/16 12:38 Ciprofloxacin/ Dextrose 200 ml @ 200 mls/hr Q12H IV 06/02/16 18:00 06/04/16 18:01 (Flagyl 500 Mg Inj) 100 ml @ 100 mls/hr Q8H IV 06/02/16 20:00 06/04/16 12:38 (risperDAL) 0.25 mg Q12HR PO 06/03/16 21:00 06/04/16 09:54 (KCl 40 Meq/30 ml Liq) 40 meq Q12HR PO 06/03/16 21:00 06/04/16 09:53 Vital Signs / I&O Vital Signs Date Time Temp Pulse Resp B/P Pulse Ox O2 Delivery O2 Flow Rate FiO2 06/04/16 18:40 96.9 102 15 148/93 92 06/04/16 13:39 96.8 95 17 149/74 98 06/04/16 09:07 96.3 92 16 128/84 94 06/04/16 07:21 95 21 06/04/16 04:00 97.0 114 20 160/83 94 06/04/16 00:00 97.9 85 20 99/60 91 06/03/16 20:30 95 06/03/16 20:00 96.9 92 20 153/83 97 06/03/16 19:20 98 21 I/O 06/03/16 06/03/16 06/03/16 06/04/16 06/04/16 06/04/16 07:00 15:00 23:00 07:00 15:00 23:00 Intake Total 240 ml 360 ml Output Total 500 ml 1 ml Balance -500 ml 239 ml 360 ml Intake Oral 240 ml IV Total 360 ml Output Urine Total 500 ml Stool Total 1 ml # Voids 6 4 1 # Bowel Movements 0 Physical Exam GENERAL: Well-nourished, well-developed patient in no apparent distress. Elderly WF SKIN: Warm and dry. NECK: JVD normal - less than or equal to 5 cm H20. CARDIOVASCULAR: Regular rate and rhythm without murmurs, gallops or rubs. RESPIRATORY: Normal breath sounds - equal bilaterally. No accessory muscle use. No wheezes, rales or rubs. PERIPHERY: No cyanosis or edema. PSYCH: seems oriented Laboratory Laboratory Tests Test 06/04/16 06:20 White Blood Count 7.6 TH/MM3 Red Blood Count 3.24 MIL/MM3 Hemoglobin 11.0 GM/DL Hematocrit 34.0 % Mean Corpuscular Volume 104.9 FL Mean Corpuscular Hemoglobin 34.0 PG Mean Corpuscular Hemoglobin 32.5 % Concent Red Cell Distribution Width 18.0 % Platelet Count 130 TH/MM3 Mean Platelet Volume 9.0 FL Neutrophils (%) (Auto) 66.6 % Lymphocytes (%) (Auto) 23.9 % Monocytes (%) (Auto) 8.3 % Eosinophils (%) (Auto) 0.6 % Basophils (%) (Auto) 0.6 % Neutrophils # (Auto) 5.2 TH/MM3 Lymphocytes # (Auto) 1.8 TH/MM3 Monocytes # (Auto) 0.6 TH/MM3 Eosinophils # (Auto) 0.0 TH/MM3 Basophils # (Auto) 0.0 TH/MM3 CBC Comment DIFF FINAL Differential Comment Sodium Level 145 MEQ/L Potassium Level 3.6 MEQ/L Chloride Level 108 MEQ/L Carbon Dioxide Level 26.0 MEQ/L Anion Gap 11 MEQ/L Blood Urea Nitrogen 2 MG/DL Creatinine 0.54 MG/DL Estimat Glomerular Filtration 113 ML/MIN Rate Random Glucose 144 MG/DL Calcium Level 7.7 MG/DL Magnesium Level 1.5 MG/DL Total Bilirubin 0.5 MG/DL Aspartate Amino Transf 21 U/L (AST/SGOT) Alanine Aminotransferase 10 U/L (ALT/SGPT) Alkaline Phosphatase 44 U/L Total Protein 6.5 GM/DL Albumin 2.6 GM/DL Imaging Last [address] 06/04/16 0000 Signed Impressions: Service Date/Time: Saturday, June 04, 2016 08:00 - CONCLUSION: 1. No evidence of acute intracranial pathology. No masses are identified. 2. Bifrontal and cerebellar atrophy Theodore Hmamond MD Assessment and Plan Assessment and Plan Cardiac ez negative no chest pain Dr Parra will see in office on discharge. Binta Salazar MD Jun 04, 2016 19:18
[2016-06-05] VITALS: BP 149/89; PULSE 92; RESP 18; TEMP 97.4; O2SAT 95
[2016-06-05] MEDS ORDERED: TEMAZEPAM 15 MG CAP PO ONE (01:15)
[2016-06-05] MEDS: metroNIDAZOLE 500 MG INJ 100 ML IV SCH ×2 (05:11→12:00)
[2016-06-05] MEDS: CIPROFLOXACIN 400 MG PREMIX 200 ML IV SCH (05:11)
[2016-06-05] MEDS: cloNIDine HCL 0.1 MG TAB PO SCH (05:11)
[2016-06-05] MEDS: oxyCODONE HCL 10 MG CONTROLLED RELEASE TAB PO SCH (05:11)
[2016-06-05 06:17] LABS: BASOPHIL # 0.1 TH/MM3 (0-0.2); BASOPHIL % 1.7 % (0.0-2.0); EOSINOPHIL # 0.1 TH/MM3 (0-0.4); EOSINOPHIL % 1.1 % (0.0-4.0); HEMATOCRIT 35.3 % (35.0-46.0); HEMO FLAGS DIFF FINAL; LYMPH % 24.6 % (9.0-44.0); LYMPHOCYTE # 1.9 TH/MM3 (1.0-4.8); MEAN CELL VOLUME 104.4 FL (80.0-100.0); MEAN CORPUSCULAR HGB CONC 32.5 % (32.0-36.0); MONO % 6.8 % (0.0-8.0); NEUT % 65.8 % (16.0-70.0); PLATELET COUNT 121 TH/MM3 (150-450); RED BLOOD COUNT 3.38 MIL/MM3 (4.00-5.30); RED CELL DISTRIBUTION WIDTH 18.1 % (11.6-17.2); WHITE BLOOD COUNT 7.6 TH/MM3 (4.0-11.0)
[2016-06-05 06:29] LABS: POTASSIUM 4.1 MEQ/L (3.5-5.1)
[2016-06-05 06:31] LABS: BICARBONATE 24.4 MEQ/L (21.0-32.0); MAGNESIUM 1.8 MG/DL (1.5-2.5)
--- NOTE | 2016-06-05 07:36 | HHI.PR ---
Subjective Remarks Patient seen at bedside. Denies any chest pain or SOB. Mentation improved is better behaved when at bedside. Objective Vital Signs Date Time Temp Pulse Resp B/P Pulse Ox O2 Delivery O2 Flow Rate FiO2 06/05/16 06:11 18 06/05/16 00:00 97.4 92 18 149/89 95 06/04/16 20:28 95 06/04/16 20:00 96.4 97 18 177/96 99 06/04/16 18:40 96.9 102 15 148/93 92 06/04/16 13:39 96.8 95 17 149/74 98 06/04/16 09:07 96.3 92 16 128/84 94 I/O 06/04/16 06/04/16 06/04/16 06/05/16 06/05/16 06/05/16 07:00 15:00 23:00 07:00 15:00 23:00 Intake Total 360 ml 467 ml Balance 360 ml 467 ml IV Total 360 ml 467 ml # Voids 1 Result Diagram: 06/05/16 0557 06/05/16 0557 Imaging Last [address] 06/04/16 0000 Signed Impressions: Service Date/Time: Saturday, June 04, 2016 08:00 - CONCLUSION: 1. No evidence of acute intracranial pathology. No masses are identified. 2. Bifrontal and cerebellar atrophy Theodore Hammond MD Other Results GENERAL: This is a well-developed patient in no apparent distress. SKIN: No rashes or lesions. Cool and dry. HEAD: Atraumatic. Normocephalic. EYES: Pupils equal round and reactive. . NECK: Trachea midline. No JVD . Neck supple and nontender, no meningeal signs. CARDIOVASCULAR: Regular rate and rhythm without murmurs, gallops, or rubs. RESPIRATORY: Clear to auscultation. Breath sounds equal bilaterally. No wheezes , rales, or rhonchi. GASTROINTESTINAL: Abdomen soft, non-tender, nondistended. No hepato-splenomegaly , or palpable masses. No guarding. MUSCULOSKELETAL: Extremities without cyanosis or edema. No joint tenderness, effusion, or edema noted. No calf tenderness. Negative Homans sign bilaterally. NEUROLOGICAL: Awake and alert. Speech delayed. Medications and IVs Current Medications Medications (Trade) Dose Ordered Sig/Diane Route Start Time Stop Time Status Last Admin (NS Flush) 2 ml BID IVF 06/01/16 21:00 06/05/16 08:47 (NS Flush) 2 ml UNSCH PRN IVF 06/01/16 20:45 (Narcan Inj) 0.4 mg UNSCH PRN IV 06/01/16 21:00 (Proair Hfa Inh) 1 puff Q4H PRN INH 06/01/16 22:30 06/05/16 08:46 (Ecotrin Ec) 81 mg DAILY PO 06/02/16 09:00 06/05/16 08:46 (Hydrea) 500 mg Q12HR PO 06/02/16 09:00 06/05/16 08:47 (Prinivil) 5 mg DAILY PO 06/02/16 09:00 06/05/16 08:47 (Protonix) 40 mg DAILY PO 06/02/16 09:00 06/05/16 08:46 (Tricor) 145 mg DAILY PO 06/01/16 23:00 06/05/16 08:46 (Symbicort 80-4.5 Mcg Inh) 2 puff BID INH 06/02/16 09:00 06/05/16 08:45 (Zofran Odt) 8 mg TID PRN PO 06/01/16 22:45 (OxyCONTIN CR) 10 mg Q8HR PO 06/02/16 06:00 06/05/16 05:11 (Percocet 10-325 Mg) 1 tab Q4H PRN PO 06/02/16 00:00 06/04/16 05:25 (Catapres) 0.1 mg Q6H PRN PO 06/02/16 12:00 (Calcium Gluconate) 1,000 mg DAILY PO 06/02/16 16:00 06/05/16 08:46 Clonidine 0.1 mg 0.1 mg Q8HR PO 06/02/16 14:15 06/05/16 05:11 Ciprofloxacin/ Dextrose 200 ml @ 200 mls/hr Q12H IV 06/02/16 18:00 06/05/16 05:11 (Flagyl 500 Mg Inj) 100 ml @ 100 mls/hr Q8H IV 06/02/16 20:00 06/05/16 05:11 (risperDAL) 0.25 mg Q12HR PO 06/03/16 21:00 06/05/16 08:46 (KCl 40 Meq/30 ml Liq) 40 meq Q12HR PO 06/03/16 21:00 06/05/16 08:46 (Restoril) 30 mg HS PO 06/05/16 21:00 Assessment and Plan Problem List: (1) Colitis Status: Acute Plan: On flagyl and cipro will continue for 7 days with stop date on seen by GI. Will follow up outpatient. No complaints of abdominal pain. (2) UTI (urinary tract infection) Status: Acute Plan: On ciprofloxacin. Cultures sensitive to cipro (3) Altered mental status Status: Acute Plan: Head CT ordered no acute findings. Neuro consulted. On Risperdal (4) Chest discomfort Status: Resolved Plan: Denies any chest discomfort this AM. Trop negative will add repeat today. Cardiology consulted no new changes and will follow up outpatient (5) COPD (chronic obstructive pulmonary disease) Status: Acute Plan: No SOB noted. Continue Symbicort, albuterol and ProAir. (6) Electrolyte disturbance Status: Resolved Plan: Resolved. (7) Chronic narcotic dependence Status: Acute Plan: Patient on chronic pain medication per Dr. Cochran. Dr. Cifuentes discussed with patient and the need to reduce use. Dr. Cifuentes will decrease pain medication. Clonidine ordered for HTN (8) Hypertension, benign Status: Chronic Plan: Continue lisinopril and clonidine. B/P 150/79. Amlodipine added. (9) Weakness generalized Status: Acute Plan: Case management consulted for referral to TCU. Plan to transfer today. Discussed Condition With Assessment and plan discussed with Dr. Cifuentes Discharge Planning Plan to discharge to TCU Problem Qualifiers (1) UTI (urinary tract infection): Qualified Code: N30.00 - Acute cystitis without hematuria Cailin Sorenson Jun 05, 2016 07:36
[2016-06-05] MEDS: RESP: ALBUTEROL 1.25 MG/3 ML NEB (SCH) NEB ×2 (07:52→11:35)
[2016-06-05 08:00] VITALS: BP 150/79; PULSE 68; RESP 18; TEMP 97.8; O2SAT 94
[2016-06-05] MEDS: BUDESONIDE-FORMOTEROL 80/4.5 MCG INHALER INH SCH (08:45)
[2016-06-05] MEDS: risperiDONE 0.25 MG TAB PO SCH (08:46)
[2016-06-05] MEDS: CALCIUM GLUCONATE 500 MG TAB PO SCH (08:46)
[2016-06-05] MEDS: PANTOPRAZOLE SOD 40 MG DELAYED RELEASE TAB PO SCH (08:46)
[2016-06-05] MEDS: ALBUTEROL SULFATE 90 MCG/ACT HFA 8 GM INHALER INH PRN (08:46)
[2016-06-05] MEDS: POTASSIUM CL 40 MEQ/30 ML LIQ UDC PO SCH (08:46)
[2016-06-05] MEDS: FENOFIBRATE 145 MG TAB PO SCH (08:46)
[2016-06-05] MEDS: ASPIRIN EC 81 MG TABEC PO SCH (08:46)
[2016-06-05] MEDS: SODIUM CHLORIDE 0.9% FLUSH 5 ML FLUSH IVF SCH (08:47)
[2016-06-05] MEDS: LISINOPRIL 5 MG TAB PO SCH (08:47)
[2016-06-05] MEDS: HYDROXYUREA 500 MG CAP PO SCH (08:47)
[2016-06-05] MEDS ORDERED: CIPR500T2 PO (11:09)
[2016-06-05] MEDS ORDERED: METR500T10 PO (11:09)
[2016-06-05] MEDS ORDERED: Potassium Cl 40 Meq/30 Ml Liq PO (11:09)
[2016-06-05] MEDS ORDERED: RISP.25 PO (11:09)
[2016-06-05] MEDS ORDERED: CALG500 PO (11:09)
[2016-06-05] MEDS ORDERED: TRAZ100T4 PO (11:09)
[2016-06-05] MEDS ORDERED: CLON.1 PO (11:09)
--- NOTE | 2016-06-05 11:18 | HHI.DS ---
Discharge Summary Admission Date Jun 01, 2016 at 20:37 Admitting Diagnosis electrolyte disorder; colitis; uti (1) Colitis Brief History The patient is a 66-year-old female who presents to the emergency department for abdominal pain. Patient has a past medical history of HTN, GERD , chronic pain, COPD, and myeloproliferative blood disease. The patient notes a history of abdominal pain over the last several months which is been intermittent, located in the lower aspect of her abdomen occasionally the epigastrium. The pain is dull to sharp, nonradiating, and associated with nausea and vomiting. The patient has had a workup including CT scans and lipase , with a history of pancreatitis. The patient is also had a history of chronic inflammation of her colon and recently underwent a sigmoidoscopy by Dr. Arevalo's office, was negative per the vat house laborer. The patient does note nausea and vomiting, denies any acute diarrhea. She denies any fever, chills, or sweats. The patient does have a history of chronic pain and is on medications by her pain interventional list, Dr. Nunes CBC/BMP: 06/05/16 0557 06/05/16 0557 Significant Findings Laboratory Tests Test 06/03/16 06/04/16 06/05/16 07:38 06:20 05:57 Red Blood Count 3.17 MIL/MM3 3.24 MIL/MM3 3.38 MIL/MM3 (4.00-5.30) (4.00-5.30) (4.00-5.30) Hemoglobin 10.9 GM/DL 11.0 GM/DL 11.5 GM/DL (11.6-15.3) (11.6-15.3) (11.6-15.3) Hematocrit 33.2 % 34.0 % (35.0-46.0) (35.0-46.0) Mean Corpuscular Volume 104.7 FL 104.9 FL 104.4 FL (80.0-100.0) (80.0-100.0) (80.0-100.0) Mean Corpuscular Hemoglobin 34.4 PG (27.0-34.0) Red Cell Distribution Width 18.3 % 18.0 % 18.1 % (11.6-17.2) (11.6-17.2) (11.6-17.2) Platelet Count 123 TH/MM3 130 TH/MM3 121 TH/MM3 (150-450) (150-450) (150-450) Monocytes (%) (Auto) 9.6 % (0.0-8.0) 8.3 % (0.0-8.0) Potassium Level 3.0 MEQ/L (3.5-5.1) Blood Urea Nitrogen 2 MG/DL (7-18) 2 MG/DL (7-18) 3 MG/DL (7-18) Random Glucose 153 MG/DL 144 MG/DL 138 MG/DL (74-106) (74-106) (74-106) Calcium Level 7.4 MG/DL 7.7 MG/DL 8.3 MG/DL (8.5-10.1) (8.5-10.1) (8.5-10.1) Protein Corrected Calcium 7.7 MG/DL (8.5-10.1) Phosphorus Level 2.0 MG/DL (2.5-4.9) Magnesium Level 1.2 MG/DL (1.5-2.5) Alanine Aminotransferase 9 U/L (10-53) (ALT/SGPT) Alkaline Phosphatase 42 U/L (45-117) 44 U/L (45-117) Albumin 2.5 GM/DL 2.6 GM/DL (3.4-5.0) (3.4-5.0) Chloride Level 108 MEQ/L 111 MEQ/L (98-107) (98-107) Sodium Level 146 MEQ/L (136-145) Estimat Glomerular Filtration 88 ML/MIN (>89) Rate Imaging Last [address] 06/04/16 0000 Signed Impressions: Service Date/Time: Saturday, June 04, 2016 08:00 - CONCLUSION: 1. No evidence of acute intracranial pathology. No masses are identified. 2. Bifrontal and cerebellar atrophy Theodore Hammond MD PE at Discharge GENERAL: This is a well-developed patient in no apparent distress. SKIN: No rashes or lesions. Cool and dry. HEAD: Atraumatic. Normocephalic. EYES: Pupils equal round and reactive. . NECK: Trachea midline. No JVD . Neck supple and nontender, no meningeal signs. CARDIOVASCULAR: Regular rate and rhythm without murmurs, gallops, or rubs. RESPIRATORY: Clear to auscultation. Breath sounds equal bilaterally. No wheezes , rales, or rhonchi. GASTROINTESTINAL: Abdomen soft, non-tender, nondistended. No hepato-splenomegaly , or palpable masses. No guarding. MUSCULOSKELETAL: Extremities without cyanosis or edema. No joint tenderness, effusion, or edema noted. No calf tenderness. Negative Homans sign bilaterally. NEUROLOGICAL: Awake and alert. Speech delayed. Transfer Summary Patient is a 66-year-old female who presents to the emergency department for abdominal pain. Patient has a past medical history of HTN, GERD , chronic pain, COPD, and myeloproliferative blood disease. The patient notes a history of abdominal pain over the last several months which is been intermittent, located in the lower aspect of her abdomen occasionally the epigastrium. The pain is dull to sharp, nonradiating, and associated with nausea and vomiting. The patient has had a workup including CT scans and lipase , with a history of pancreatitis. The patient is also had a history of chronic inflammation of her colon and recently underwent a sigmoidoscopy by Dr. Arevalo's office, was negative per the vat house laborer. The patient does note nausea and vomiting, denies any acute diarrhea. She denies any fever, chills, or sweats. The patient does have a history of chronic pain and is on medications by her pain interventional list, Dr. Nunes. During her hospital stay she has been seen by GI, Cardiology, and neurology. She is being treated for collits and her medication has been changed to PO. She also has had AMS and had a head CT which was negative. Most likely medication induced. She will be discharged to TCU under the care of Dr. Cifuentes. Discharge Disposition: Discharge to SNF Discharge Instructions DIET: Follow Instructions for: Heart Healthy Diet Activities you can perform: See Additionl Instruction New Medications: Ciprofloxacin (Ciprofloxacin) 500 Mg Tab 500 MG PO BID Infection Days 3 Ref 0 TAB Metronidazole (Metronidazole) 500 Mg Tab 500 MG PO TID Infection Days 3 Ref 0 TAB Trazodone (Trazodone) 100 Mg Tab 100 MG PO HS Control Depression #30 Ref 0 TAB Calcium Gluconate (Calcium Gluconate) 500 Mg Tab 1000 MG PO DAILY Nutritional Supplement #30 TAB Clonidine (Catapres) 0.1 Mg Tab 0.1 MG PO Q8HR Blood Pressure Management #30 TAB Risperidone (Risperdal) 0.25 Mg Tab 0.25 MG PO Q12HR Agitation #30 TAB ([Potassium Cl 40 Meq/30 Ml Liq]) 40 MEQ/30 ML LIQD 40 MEQ PO Q12HR ML Continued Medications: Albuterol 18 GM Inh (Ventolin Hfa 18 GM Inh) 90 Mcg/Act Aer 1 PUFF INH Q4H PRN SHORTNESS OF BREATH #1 Ref 0 INHALER Aspirin (Aspirin) 81 Mg Tabdr 81 MG PO DAILY TAB Choline Fenofibrate DR (Trilipix) 135 Mg Capdr 135 MG PO DAILY #30 Ref 0 CAP Cyanocobalamin Inj (Cyanocobalamin Inj) 1,000 Mcg/Ml Inj 1000 MCG IM Q30D #1 Ref 0 VIAL Digoxin (Lanoxin) 0.25 Mg Tab 0.25 MG PO DAILY Regulate Heart Beat #30 Ref 0 TAB Fluticasone-Salmeterol Inh (Advair Diskus Inh) 100-50 Mcg/Blist Aer 1 PUFF INH BID Rinse mouth after use. #1 Ref 0 INHALER Hydroxyurea (Hydroxyurea) 500 Mg Cap 500 MG PO Q12HR Ref 0 CAP Levalbuterol Neb (Levalbuterol Neb) 0.63 Mg/3 Ml Neb 0.63 MG INH QID Breathing Treatment #120 Ref 0 NEBULE Lisinopril (Lisinopril) 5 Mg Tab 5 MG PO DAILY htn Days 30 TAB Metoprolol Tartrate (Metoprolol Tartrate) 25 Mg Tab 12.5 MG PO Q12HR heart rate #62 TAB Ondansetron (Zofran) 8 Mg Tab 8 MG PO TID PRN NAUSEA OR VOMITING #30 Ref 1 TAB Pantoprazole (Pantoprazole) 40 Mg Tab 40 MG PO DAILY gi #31 TAB Discontinued Medications: Bethanechol (Bethanechol) 25 Mg Tab 25 MG PO QID Urinary Symptom Managemen Ref 0 TAB Diphenhydramine (Benadryl Allergy) 25 Mg Tab 25 MG PO Q6H PRN ALLERGIES Ref 0 TAB Fesoterodine ER (Toviaz ER) 4 mg Roderick 4 MG PO DAILY Overactive bladder #30 Ref 0 TAB Oxybutynin (Ditropan) 5 Mg Tab 5 MG PO Q12HR Urinary Symptom Managemen #60 Ref 0 TAB Oxycodone (Oxycodone) 30 Mg Tab 30 MG PO Q8H PRN BREAKTHROUGH PAIN Ref 0 TAB Oxycodone ER (Oxycontin) 80 Mg Tab 80 MG PO Q8HR PRN PAIN SCALE 6 TO 10 Ref 0 TAB Sumatriptan-Naproxen (Treximet) 85-500 Mg Tab 1 TAB PO Q12HR May take a second dose after 2 hours if needed. Maximum 2 tabs in 24 hour period. PRN MIGRAINE HEADACHE Ref 0 TAB Cailin Sorenson Jun 05, 2016 11:18
[2016-06-05] MEDS ORDERED: TEMAZEPAM 15 MG CAP PO SCH (21:00)
[2016-11-02] MEDS ORDERED: OXYC40TA20 PO (23:02)
[2016-11-02] MEDS ORDERED: BETH25TA2 PO (23:02)
[2016-11-02] MEDS ORDERED: ADVA250A INH (23:02)
[2016-11-02] MEDS ORDERED: ESTR1 PO (23:02)
[2016-11-02] MEDS ORDERED: ASPI81TA81 (23:02)
[2016-11-02] MEDS ORDERED: HYDR500C PO (23:02)
[2016-11-02] MEDS ORDERED: SUMA85TA PO (23:02)
[2016-11-02] MEDS ORDERED: OXYC15TA PO (23:02)
[2016-11-02] MEDS ORDERED: QUET1TAB7 PO (23:02)
[2016-11-02] MEDS ORDERED: SOMA350T PO (23:02)
[2016-11-02] MEDS ORDERED: PEPP90CA PO (23:02)
[2016-11-02] MEDS ORDERED: TRAZ50TA12 PO (23:02)
[2016-11-02] MEDS ORDERED: METH1TAB2 PO (23:02)
[2016-11-02] MEDS ORDERED: ZOFR8TAB PO (23:02)
[2016-11-02] MEDS ORDERED: TEMA30CA PO (23:02)
[2016-11-02] MEDS ORDERED: METO50TA PO (23:02)
[2016-11-02] MEDS ORDERED: CREON24 PO (23:02)
[2016-11-02] MEDS ORDERED: OMEP40CA2 PO (23:02)
== END 2016-06-05 13:40 | DRG 391 ==
LOC: PHED 17:08 → PHEDA 20:37 → PH3A 06-02 00:24
PROVIDERS: ADMIT Family Medicine; ATTEND Family Medicine
DX: K52.9 Noninfective gastroenteritis and colitis, unspecified (principal); G93.40 Encephalopathy, unspecified; C94.6 Myelodysplastic disease, not elsewhere classified; F11.20 Opioid dependence, uncomplicated; J44.9 Chronic obstructive pulmonary disease, unspecified; I48.91 Unspecified atrial fibrillation; N39.0 Urinary tract infection, site not specified; K31.84 Gastroparesis; I10 Essential (primary) hypertension; G43.909 Migraine, unspecified, not intractable, without status migrainosus; K21.9 Gastro-esophageal reflux disease without esophagitis; G89.29 Other chronic pain; Z86.73 Personal history of transient ischemic attack (TIA), and cerebral infarction without residual deficits; J45.909 Unspecified asthma, uncomplicated; Z87.891 Personal history of nicotine dependence; R07.89 Other chest pain; E83.42 Hypomagnesemia; E83.51 Hypocalcemia; B19.20 Unspecified viral hepatitis C without hepatic coma; R00.0 Tachycardia, unspecified
CPT/HCPCS: 70450; 74176; 80048; 80053; 80162; 81001; 83605; 83690; 83735; 84100; 84484; 85025; 87077; 87086; 87186; 93005; 94640; 94664; 96365; 96367; 96375; J0610; J0744; J2270; J2405; J3475; J3480; J7030; J7613

== ENCOUNTER 2016-07-04 13:10 | Emergency (ER) | payer MEDICARE, OTHER ==
[~2016-07-04] VITALS: Ht 152.4 cm; Wt 63.0 kg
[~2016-07-04 13:10] MED LIST changes: -BENA25TA3 PO; -BETH25TA2 PO; +CALG500 PO; +CIPR500T2 PO; +CLON.1 PO; -DIFL100T PO; -METR-1 PO; +METR500T10 PO; -OXYB5TAB10 PO; -OXYC30TA PO; -OXYC80TA9 PO; -PRIL40CA PO; -PROM1SUP8 RECTAL; +Potassium Cl 40 Meq/30 Ml Liq PO; +RISP.25 PO; -SOMA350T PO; -SUMA85TA PO; -TEMA30CA PO; +TRAZ100T4 PO
[2016-07-04 13:26] VITALS: BP 120/84; PULSE 97; RESP 16; TEMP 97.6; O2SAT 97
[2016-07-04 13:38] VITALS: RESP 16
[2016-07-04 15:10] VITALS: BP 125/67; PULSE 89; RESP 17; O2SAT 99
--- NOTE | 2016-07-04 15:12 | PD ---
HPI Chief Complaint: Hypertension Time Seen by Provider: 14:44 Travel History International Travel<30 days: No Contact w/Intl Traveler<30days: No Traveled to known affect area: No History of Present Illness HPI This patient had a first-time home visit from a home health nurse. He decided to send her to the emergency room. This was for 2 reasons. The first was the blood pressure was elevated, the patient states was 160 systolic and 200 systolic on 2 separate checks. However, she arrives and it is 120/84. The second reason was the nurse thought she looked jaundiced. Patient feels relatively well. She has a lot of chronic problem she is working through. Severity is mild. PFSH Past Medical History Anemia: Yes (MYLOPROLIFERATIVE BLOOD DISORDER) Arthritis: No Asthma: Yes Atrial Fibrillation: Yes Autoimmune Disease: No Blood Disorders: No Anxiety: No Depression: No Heart Rhythm Problems: Yes (tachy) Cancer: No Cardiovascular Problems: Yes (htn on meds) High Cholesterol: No Chemotherapy: No Chest Pain: No Congestive Heart Failure: No COPD: Yes (EMPHYSEMA) Cerebrovascular Accident: Yes Diabetes: No Diminished Hearing: No Endocrine: No Gastrointestinal Disorders: Yes GERD: Yes Glaucoma: No Genitourinary: No Headaches: No Hepatitis: Yes (HEP-B) Hiatal Hernia: Yes Hypertension: Yes Immune Disorder: No Kidney Stones: No Musculoskeletal: No Neurologic: No Psychiatric: No Respiratory: Yes Migraines: Yes Myocardial Infarction: No Radiation Therapy: No Renal Failure: No Seizures: No Sickle Cell Disease: No Sleep Apnea: No Thyroid Disease: No Ulcer: No Tetanus Vaccination: > 5 Years Influenza Vaccination: Yes ?: Not Menopausal: Yes Tubal Ligation: Yes Past Surgical History Abdominal Surgery: Yes (NAPOLEON,HERNIA REPAIR X 3) AICD: No Cardiac Surgery: No Cholecystectomy: Yes Ear Surgery: No Endocrine Surgery: No Eye Surgery: No Genitourinary Surgery: Yes (BLADDER SUSPENSION) Gynecologic Surgery: Yes (LT BREAST LUMPECTOMY) Hysterectomy: Yes Insulin Pump: No Joint Replacement: No Oral Surgery: No Pacemaker: No Thoracic Surgery: No Other Surgery: Yes Social History Alcohol Use: No Tobacco Use: No (FORMER) Substance Use: No Allergies-Medications (Allergen,Severity, Reaction): Coded Allergies: Bactrim (Verified Allergy, Severe, "VOMITING", 07/04/16) Inderal (Verified Allergy, Severe, "CAUSES ASTHMA ATTACK", 07/04/16) Indocin (Verified Allergy, Severe, "NAUSEA", 07/04/16) Penicillin (Verified Allergy, Severe, "HEART FAILURE", 07/04/16) Procardia (Verified Allergy, Severe, "RAPID HEART BEAT", 07/04/16) Reported Meds & Prescriptions Reported Meds & Active Scripts Active Trazodone (Trazodone HCl) 100 Mg Tab 100 Mg PO HS Ciprofloxacin (Ciprofloxacin HCl) 500 Mg Tab 500 Mg PO BID 3 Days Metronidazole 500 Mg Tab 500 Mg PO TID 3 Days Risperdal (Risperidone) 0.25 Mg Tab 0.25 Mg PO Q12HR [Potassium Cl 40 Meq/30 Ml Liq] 40 MEQ/30 ML Liqd 40 Meq PO Q12HR Catapres (Clonidine) 0.1 Mg Tab 0.1 Mg PO Q8HR Calcium Gluconate 500 Mg Tab 1,000 Mg PO DAILY Pantoprazole (Pantoprazole Sodium) 40 Mg Tab 40 Mg PO DAILY Metoprolol Tartrate 25 Mg Tab 12.5 Mg PO Q12HR Zofran (Ondansetron HCl) 8 Mg Tab 8 Mg PO TID PRN Lisinopril 5 Mg Tab 5 Mg PO DAILY 30 Days Reported Ventolin Hfa 18 GM Inh (Albuterol Sulfate) 90 Mcg/Act Aer 1 Puff INH Q4H PRN Advair Diskus Inh (Fluticasone-Salmeterol Inh) 100-50 Mcg/Blist Aer 1 Puff INH BID Rinse mouth after use. Levalbuterol Neb (Levalbuterol HCl) 0.63 Mg/3 Ml Neb 0.63 Mg INH QID Cyanocobalamin Inj (Cyanocobalamin) 1,000 Mcg/Ml Inj 1,000 Mcg IM Q30D Aspirin 81 Mg Tabdr 81 Mg PO DAILY Lanoxin (Digoxin) 0.25 Mg Tab 0.25 Mg PO DAILY Trilipix (Choline Fenofibrate DR) 135 Mg Capdr 135 Mg PO DAILY Hydroxyurea 500 Mg Cap 500 Mg PO Q12HR Review of Systems General / Constitutional: No: Fever HENT: No: Headaches Cardiovascular: No: Chest Pain or Discomfort Physical Exam Narrative GASTROINTESTINAL: Abdomen soft, non-tender, nondistended. Positive bowel sounds. No hepato-splenomegaly, or palpable masses. No guarding. SKIN: Inspection shows no rash or ulcers. Palpation shows no induration or nodules. No evidence of jaundice No scleral icterus Data Data Last Documented VS Vital Signs Date Time Temp Pulse Resp B/P Pulse Ox O2 Delivery O2 Flow Rate FiO2 07/04/16 13:38 16 07/04/16 13:26 97.6 97 120/84 97 Room Air MDM Medical Decision Making Medical Screen Exam Complete: Yes Emergency Medical Condition: Yes Medical Record Reviewed: Yes Differential Diagnosis Jaundice, hepatitis, well exam Narrative Course I have reviewed the patient's electronic medical record. Discussed options with patient and at bedside. Patient has a normal blood pressure so that issue does not need emergently addressed. Advised her to check and recorded daily and discuss with her physician I don't see evidence of jaundice. I don't believe that she is jaundiced. I offered to obtain lab studies including LFTs to have objective lab markers but the patient would rather go home. She feels okay and she notes that she is a very challenging person to put an IV in and both arms are carpeted bruises from a recent hospital stay were she needed multiple attempts to get IVs. She does not want to do that unless absolutely necessary. She should follow up primary care Diagnosis Primary Impression: Elevated blood pressure reading Additional Instructions: The patient was advised to follow up with their physician and return if they worsen. Med/Other Pt SpecificInfo: Other Disposition: 01 DISCHARGE HOME Condition: Stable Ramiro Dang MD Jul 04, 2016 15:12
[2016-11-02] MEDS ORDERED: ADVA250A INH (23:02)
[2016-11-02] MEDS ORDERED: TRAZ50TA12 PO (23:02)
[2016-11-02] MEDS ORDERED: METH1TAB2 PO (23:02)
[2016-11-02] MEDS ORDERED: PEPP90CA PO (23:02)
[2016-11-02] MEDS ORDERED: OXYC40TA20 PO (23:02)
[2016-11-02] MEDS ORDERED: ESTR1 PO (23:02)
[2016-11-02] MEDS ORDERED: BETH25TA2 PO (23:02)
[2016-11-02] MEDS ORDERED: CREON24 PO (23:02)
[2016-11-02] MEDS ORDERED: SOMA350T PO (23:02)
[2016-11-02] MEDS ORDERED: METO50TA PO (23:02)
[2016-11-02] MEDS ORDERED: SUMA85TA PO (23:02)
[2016-11-02] MEDS ORDERED: ASPI81TA81 (23:02)
[2016-11-02] MEDS ORDERED: TEMA30CA PO (23:02)
[2016-11-02] MEDS ORDERED: OXYC15TA PO (23:02)
[2016-11-02] MEDS ORDERED: OMEP40CA2 PO (23:02)
[2016-11-02] MEDS ORDERED: QUET1TAB7 PO (23:02)
[2016-11-02] MEDS ORDERED: HYDR500C PO (23:02)
[2016-11-02] MEDS ORDERED: ZOFR8TAB PO (23:02)
== END 2016-07-04 15:27 | disposition home or self-care (01) ==
LOC: PHED 13:10
DX: I10 Essential (primary) hypertension (principal); I48.91 Unspecified atrial fibrillation; Z87.891 Personal history of nicotine dependence
CPT/HCPCS: 99284

== ENCOUNTER 2016-07-23 23:10 | Emergency (ER) | payer MEDICARE, OTHER ==
[~2016-07-23] VITALS: Ht 152.4 cm; Wt 75.0 kg
[2016-07-23 23:14] VITALS: BP 165/88; PULSE 99; RESP 18; TEMP 98.1; O2SAT 98
[2016-07-23] MEDS ORDERED: SODIUM CHLORID 0.9% 500 ML INJ 500 ML IV ONE (23:30)
[2016-07-23] MEDS ORDERED: SODIUM CHLORIDE 0.9% FLUSH 5 ML FLUSH IVF PRN (23:30)
[2016-07-23] MEDS ORDERED: ASPIRIN 81 MG CHEW TAB PO ONE (23:30)
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
[2016-07-23 23:45] LABS: AUTOMATED NEUTROPHIL # 6.1 TH/MM3 (1.8-7.7); BASOPHIL % 0.5 % (0.0-2.0); EOSINOPHIL % 0.4 % (0.0-4.0); HEMATOCRIT 37.1 % (35.0-46.0); HEMO FLAGS DIFF FINAL; LYMPH % 28.4 % (9.0-44.0); LYMPHOCYTE # 2.7 TH/MM3 (1.0-4.8); MEAN CELL VOLUME 109.7 FL (80.0-100.0); MEAN CORPUSCULAR HEMOGLOBIN 37.8 PG (27.0-34.0); MEAN CORPUSCULAR HGB CONC 34.5 % (32.0-36.0); MONO % 6.9 % (0.0-8.0); NEUT % 63.8 % (16.0-70.0); PLATELET COUNT 164 TH/MM3 (150-450); RED BLOOD COUNT 3.38 MIL/MM3 (4.00-5.30); RED CELL DISTRIBUTION WIDTH 17.3 % (11.6-17.2); WHITE BLOOD COUNT 9.5 TH/MM3 (4.0-11.0)
[2016-07-23 23:54] LABS: APTT (PATIENT) 26.5 SEC (24.3-30.1)
--- NOTE | 2016-07-24 00:06 | RADRPT ---
EXAM DATE/TIME: 07/23/2016 23:28 [facility] COMPARISON: CHEST SINGLE AP, May 05, 2016, 5:11. INDICATIONS : Chest discomfort. MEDICAL HISTORY : Chronic obstructive pulmonary disease. SURGICAL HISTORY : None. ENCOUNTER: Initial ACUITY: 1 day PAIN SCORE: 110 LOCATION: Bilateral chest FINDINGS: A single view of the chest demonstrates the lungs to be symmetrically aerated without evidence of mas s, infiltrate or effusion. The cardiomediastinal contours are unremarkable. Osseous structures are intact. CONCLUSION: No acute cardiopulmonary process. Mart Garner MD on July 24, 2016 at 0:04 Board Certified Radiologist. This report was verified electronically.
[2016-07-24 00:15] LABS: ALKALINE PHOSPHATASE 41 U/L (45-117); ALT (GPT) 16 U/L (10-53); ANION GAP 9 MEQ/L (5-15); AST (GOT) 39 U/L (15-37); BICARBONATE 24.1 MEQ/L (21.0-32.0); BLOOD UREA NITROGEN 13 MG/DL (7-18); CHLORIDE 106 MEQ/L (98-107); GLOMERULAR FILTRATION RATE 73 ML/MIN (>89); POTASSIUM 4.5 MEQ/L (3.5-5.1); SODIUM (NA) 139 MEQ/L (136-145); TOTAL BILIRUBIN ADULT 0.6 MG/DL (0.2-1.0)
[2016-07-24 00:16] LABS: CREATINE KINASE 74 U/L (26-192)
[2016-07-24 01:10] VITALS: BP 195/85
--- NOTE | 2016-07-24 13:54 | EKG ---
Date Performed: 07/23/2016 Time Performed: 22:22:58 PTAGE: 66 years EKG: Sinus rhythm NORMAL ECG Compared to PREVIOUS TRACING , the previous prominent ST-T abnormalities have resolved. PREVIOUS TRAC ING 06/01/2016 20.21.06 DOCTOR: Epi Miner Interpretating Date/Time 07/24/2016 13:53:51
[2016-11-02] MEDS ORDERED: BETH25TA2 PO (23:02)
[2016-11-02] MEDS ORDERED: CREON24 PO (23:02)
[2016-11-02] MEDS ORDERED: ADVA250A INH (23:02)
[2016-11-02] MEDS ORDERED: ESTR1 PO (23:02)
[2016-11-02] MEDS ORDERED: TEMA30CA PO (23:02)
[2016-11-02] MEDS ORDERED: QUET1TAB7 PO (23:02)
[2016-11-02] MEDS ORDERED: OXYC40TA20 PO (23:02)
[2016-11-02] MEDS ORDERED: PEPP90CA PO (23:02)
[2016-11-02] MEDS ORDERED: METO50TA PO (23:02)
[2016-11-02] MEDS ORDERED: TRAZ50TA12 PO (23:02)
[2016-11-02] MEDS ORDERED: HYDR500C PO (23:02)
[2016-11-02] MEDS ORDERED: ASPI81TA81 (23:02)
[2016-11-02] MEDS ORDERED: OMEP40CA2 PO (23:02)
[2016-11-02] MEDS ORDERED: ZOFR8TAB PO (23:02)
[2016-11-02] MEDS ORDERED: METH1TAB2 PO (23:02)
[2016-11-02] MEDS ORDERED: SUMA85TA PO (23:02)
[2016-11-02] MEDS ORDERED: SOMA350T PO (23:02)
[2016-11-02] MEDS ORDERED: OXYC15TA PO (23:02)
== END 2016-07-24 01:12 | disposition left against medical advice (07) ==
LOC: NEPA 23:10
DX: R07.9 Chest pain, unspecified (principal); J44.9 Chronic obstructive pulmonary disease, unspecified; I48.91 Unspecified atrial fibrillation; I10 Essential (primary) hypertension; Z72.0 Tobacco use
CPT/HCPCS: 71010; 80053; 82550; 83690; 83880; 84484; 85025; 85610; 85730; 93005; 96360; 99285; J7040

== ENCOUNTER 2016-07-27 22:12 | Emergency (ER) | payer MEDICARE, OTHER ==
[~2016-07-27] VITALS: Ht 162.6 cm; Wt 60.4 kg
[2016-07-27 22:15] VITALS: BP 174/89; PULSE 98; RESP 20; TEMP 98.1; O2SAT 100
[2016-07-27] MEDS ORDERED: OMEP40CA2 PO (22:39)
[2016-07-27] MEDS ORDERED: [UNRECOGNIZED DRUG - OTHER] PO (22:53)
[2016-07-27] MEDS ORDERED: OXYC40TA9 PO (22:53)
[2016-07-27] MEDS ORDERED: BETH25TA2 PO (22:53)
[2016-07-27] MEDS ORDERED: [UNRECOGNIZED DRUG - OTHER] PO (22:53)
[2016-07-27 22:54] VITALS: RESP 20; O2SAT 100
--- NOTE | 2016-07-27 22:55 | PD ---
HPI Chief Complaint: Chest Pain Time Seen by Provider: 22:35 Travel History International Travel<30 days: No Contact w/Intl Traveler<30days: No Traveled to known affect area: No History of Present Illness HPI 66-year-old female complains of chest pain. Patient states that the pain started about week and a half ago and has been persistent since then. Patient states the pain is pressure pain localized to left chest. Patient denies any pain radiation. Patient denies palpitation nausea diaphoresis. Patient denies any coughing congestion fever chills. Patient denies history of CAD. Patient has history of hypertension. Patient denies history diabetes or dyslipidemia. Patient is a smoker. Patient has family history heart disease. On a scale of 1 -10 the pain is an 8. Patient was seen in emergency room 4 days ago for chest pain. Patient was advised to be admitted however patient sign out AMA. Patient states that she has persistent chest pain since last visit. Patient has history of myeloproliferative blood disorder, COPD, atrial fibrillation, dementia, CVA, GERD, hepatitis B. Patient does not have a local drying room supervisor. Patient's family physician Dr. Cifuentes [facility] Past Medical History Anemia: Yes (MYLOPROLIFERATIVE BLOOD DISORDER) Arthritis: No Asthma: Yes Atrial Fibrillation: Yes Autoimmune Disease: No Blood Disorders: No Anxiety: No Depression: No Heart Rhythm Problems: Yes (tachy) Cancer: No Cardiovascular Problems: Yes (htn on meds) High Cholesterol: Yes Chemotherapy: No Chest Pain: No Congestive Heart Failure: No COPD: Yes (EMPHYSEMA) Cerebrovascular Accident: Yes Diabetes: No Diminished Hearing: No Endocrine: No Gastrointestinal Disorders: Yes GERD: Yes Glaucoma: No Genitourinary: No Headaches: No Hepatitis: Yes (HEP-B) Hiatal Hernia: Yes Hypertension: Yes Immune Disorder: No Kidney Stones: No Musculoskeletal: No Neurologic: No Psychiatric: No Respiratory: Yes Migraines: Yes Myocardial Infarction: No Radiation Therapy: No Renal Failure: No Seizures: No Sickle Cell Disease: No Sleep Apnea: No Thyroid Disease: No Ulcer: No ?: Not Menopausal: Yes Tubal Ligation: Yes Past Surgical History Abdominal Surgery: Yes (NAPOLEON,HERNIA REPAIR X 3) AICD: No Cardiac Surgery: No Cholecystectomy: Yes Ear Surgery: No Endocrine Surgery: No Eye Surgery: No Genitourinary Surgery: Yes (BLADDER SUSPENSION) Gynecologic Surgery: Yes (LT BREAST LUMPECTOMY) Hysterectomy: Yes Insulin Pump: No Joint Replacement: No Neurologic Surgery: No Oral Surgery: No Pacemaker: No Thoracic Surgery: No Other Surgery: Yes Social History Alcohol Use: No Tobacco Use: Yes Substance Use: No Allergies-Medications (Allergen,Severity, Reaction): Coded Allergies: Bactrim (Verified Allergy, Severe, "VOMITING", 07/27/16) Inderal (Verified Allergy, Severe, "CAUSES ASTHMA ATTACK", 07/27/16) Indocin (Verified Allergy, Severe, "NAUSEA", 07/27/16) Penicillin (Verified Allergy, Severe, "HEART FAILURE", 07/27/16) Procardia (Verified Allergy, Severe, "RAPID HEART BEAT", 07/27/16) Reported Meds & Prescriptions Reported Meds & Active Scripts Active Trazodone (Trazodone HCl) 100 Mg Tab 100 Mg PO HS Risperdal (Risperidone) 0.25 Mg Tab 0.25 Mg PO Q12HR Zofran (Ondansetron HCl) 8 Mg Tab 8 Mg PO TID PRN Lisinopril 5 Mg Tab 5 Mg PO DAILY 30 Days Reported Oxycontin (Oxycodone HCl) 40 Mg Tab 40 Mg PO Q8HR [IB Dixon] 1 PO BEFORE MEALS [penpep ] 400,000 PO TID Bethanechol 25 Mg Tab 25 Mg PO Q8HR Omeprazole 40 Mg Cap 40 Mg PO DAILY Ventolin Hfa 18 GM Inh (Albuterol Sulfate) 90 Mcg/Act Aer 1 Puff INH Q4H PRN Advair Diskus Inh (Fluticasone-Salmeterol Inh) 100-50 Mcg/Blist Aer 1 Puff INH BID Rinse mouth after use. Levalbuterol Neb (Levalbuterol HCl) 0.63 Mg/3 Ml Neb 0.63 Mg INH QID Aspirin 81 Mg Tabdr 81 Mg PO DAILY Lanoxin (Digoxin) 0.25 Mg Tab 0.25 Mg PO DAILY Hydroxyurea 500 Mg Cap 500 Mg PO Q12HR Review of Systems General / Constitutional: No: Fever Eyes: No: Visual changes HENT: No: Headaches Cardiovascular: Positive: Chest Pain or Discomfort Respiratory: No: Shortness of Breath Gastrointestinal: No: Abdominal Pain Genitourinary: No: Dysuria Musculoskeletal: No: Pain Skin: No Rash Neurologic: No: Weakness Psychiatric: No: Depression Endocrine: No: Polydipsia Hematologic/Lymphatic: No: Easy Bruising Physical Exam Narrative GENERAL: Well-nourished, well-developed patient. SKIN: Warm and dry. HEAD: Normocephalic. EYES: No scleral icterus. No injection or drainage. NECK: Supple, trachea midline. No JVD or lymphadenopathy. CARDIOVASCULAR: Regular rate and rhythm without murmurs, gallops, or rubs. RESPIRATORY: Breath sounds equal bilaterally. No accessory muscle use. GASTROINTESTINAL: Abdomen soft, non-tender, nondistended. MUSCULOSKELETAL: No cyanosis, or edema. BACK: Nontender without obvious deformity. No CVA tenderness. Neurologic exam: Patient awake and alert oriented to place and person. Patient moves all extremity well. No obvious focal neurological deficit. Data Data Last Documented VS Vital Signs Date Time Temp Pulse Resp B/P Pulse Ox O2 Delivery O2 Flow Rate FiO2 07/27/16 22:54 20 100 Room Air 07/27/16 22:15 98.1 98 174/89 Orders Electrocardiogram (07/27/16 22:43) Complete Blood Count With Diff (07/27/16 22:43) Comprehensive Metabolic Panel (07/27/16 22:43) Creatine Kinase (Cpk) (07/27/16 22:43) Troponin I (07/27/16 22:43) Prothrombin Time / Inr (Pt) (07/27/16 22:43) Act Partial Throm Time (Ptt) (07/27/16 22:43) Urinalysis - C+S If Indicated (07/27/16 22:43) Digoxin (07/27/16 22:43) Chest, Single Ap (07/27/16 22:43) Iv Access Insert/Monitor (07/27/16 22:43) Ecg Monitoring (07/27/16 22:43) Oximetry (07/27/16 22:43) Urine Culture (07/27/16 23:35) Ciprofloxacin (Cipro) (07/28/16 00:30) Aspirin (Aspirin) (07/28/16 00:30) Labs Laboratory Tests Test 07/27/16 07/27/16 23:25 23:35 White Blood Count 13.1 TH/MM3 Red Blood Count 3.91 MIL/MM3 Hemoglobin 14.0 GM/DL Hematocrit 42.7 % Mean Corpuscular Volume 109.3 FL Mean Corpuscular Hemoglobin 35.9 PG Mean Corpuscular Hemoglobin 32.9 % Concent Red Cell Distribution Width 15.7 % Platelet Count 200 TH/MM3 Mean Platelet Volume 8.5 FL Neutrophils (%) (Auto) 65.3 % Lymphocytes (%) (Auto) 26.0 % Monocytes (%) (Auto) 6.0 % Eosinophils (%) (Auto) 0.4 % Basophils (%) (Auto) 2.3 % Neutrophils # (Auto) 8.5 TH/MM3 Lymphocytes # (Auto) 3.4 TH/MM3 Monocytes # (Auto) 0.8 TH/MM3 Eosinophils # (Auto) 0.1 TH/MM3 Basophils # (Auto) 0.3 TH/MM3 CBC Comment DIFF FINAL Differential Comment Prothrombin Time 11.3 SEC Prothromb Time International 1.0 RATIO Ratio Activated Partial 28.4 SEC Thromboplast Time Sodium Level 142 MEQ/L Potassium Level 3.8 MEQ/L Chloride Level 110 MEQ/L Carbon Dioxide Level 20.8 MEQ/L Anion Gap 11 MEQ/L Blood Urea Nitrogen 10 MG/DL Creatinine 0.82 MG/DL Estimat Glomerular Filtration 70 ML/MIN Rate Random Glucose 120 MG/DL Calcium Level 9.1 MG/DL Total Bilirubin 0.7 MG/DL Aspartate Amino Transf 18 U/L (AST/SGOT) Alanine Aminotransferase 13 U/L (ALT/SGPT) Alkaline Phosphatase 45 U/L Total Creatine Kinase 31 U/L Troponin I LESS THAN 0.02 NG/ML Total Protein 7.6 GM/DL Albumin 3.4 GM/DL Urine Collection Type CATH Urine Color MARYANN Urine Turbidity SLIGHT Urine pH 6.0 Urine Specific [place] 1.019 Urine Protein 100 mg/dL Urine Glucose (UA) NEG mg/dL Urine Ketones NEG mg/dL Urine Occult Blood NEG Urine Nitrite POS Urine Bilirubin NEG Urine Leukocyte Esterase SMALL Urine RBC 0-3 /hpf Urine WBC 20-24 /hpf Urine WBC Clumps FEW Urine Squamous Epithelial 0-5 /hpf Cells Urine Bacteria MOD /hpf Urine Mucus FEW /lpf Microscopic Urinalysis Comment CATH-CULTURE IND MDM Medical Decision Making Medical Screen Exam Complete: Yes Emergency Medical Condition: Yes Interpretation(s) 12:01 AM. CBC WBC 13.1. Hemoglobin 14.0. MCV 109.3. Normal differential. Differential Diagnosis Differential diagnosis including musculoskeletal, angina, SC, PE, pneumothorax. Narrative Course 66-year-old female with chest pain. Patient has chest pain for past week and a half. Cipro 500 mg by mouth given. Aspirin 325 mg by mouth given. Patient was advised to be admitted to the chest pain center. Patient refused to stay. Patient signed out AMA. Diagnosis Primary Impression: Chest pain Qualified Code: R07.9 - Chest pain, unspecified type Additional Impression: UTI (urinary tract infection) Qualified Code: N30.00 - Acute cystitis without hematuria Admitting Information Admitting Physician Requests: Observation Patient Instructions: General Instructions Additional Instructions: Cipro as directed. Patient refused admission to the chest pain center. Patient will follow-up with her drying room supervisor. Med/Other Pt SpecificInfo: Prescription(s) given Scripts Ciprofloxacin (Cipro)500 Mg Uvp178 Mg PO BID #14 TAB Prov:Cristi Avendaño MD 07/28/16 Disposition: 07 AGAINST MEDICAL ADVICE Condition: Stable Cristi Avendaño MD Jul 27, 2016 22:55
[2016-07-27 23:45] LABS: AUTOMATED NEUTROPHIL # 8.5 TH/MM3 (1.8-7.7); BASOPHIL # 0.3 TH/MM3 (0-0.2); BASOPHIL % 2.3 % (0.0-2.0); EOSINOPHIL # 0.1 TH/MM3 (0-0.4); EOSINOPHIL % 0.4 % (0.0-4.0); HEMATOCRIT 42.7 % (35.0-46.0); HEMO FLAGS DIFF FINAL; LYMPHOCYTE # 3.4 TH/MM3 (1.0-4.8); MEAN CELL VOLUME 109.3 FL (80.0-100.0); MEAN CORPUSCULAR HEMOGLOBIN 35.9 PG (27.0-34.0); MEAN CORPUSCULAR HGB CONC 32.9 % (32.0-36.0); NEUT % 65.3 % (16.0-70.0); PLATELET COUNT 200 TH/MM3 (150-450); RED BLOOD COUNT 3.91 MIL/MM3 (4.00-5.30); RED CELL DISTRIBUTION WIDTH 15.7 % (11.6-17.2); WHITE BLOOD COUNT 13.1 TH/MM3 (4.0-11.0)
[2016-07-27 23:52] LABS: BLOOD, URINE NEG (NEG); GLUCOSE,URINE NEG (NEG); KETONE, URINE NEG (NEG)
[2016-07-27 23:57] LABS: CHLORIDE 110 MEQ/L (98-107); POTASSIUM 3.8 MEQ/L (3.5-5.1); SODIUM (NA) 142 MEQ/L (136-145)
--- NOTE | 2016-07-28 | RADHPO ---
EXAM DATE/TIME: 07/27/2016 23:40 [facility] COMPARISON: CHEST SINGLE AP, July 23, 2016, 23:28. INDICATIONS : Chest pain. MEDICAL HISTORY : Chronic obstructive pulmonary disease. Hypertension Cerebrovascular disease. SURGICAL HISTORY : Tubal ligation. Hysterectomy. Cholecystectomy. ENCOUNTER: Initial ACUITY: 1 day PAIN SCORE: 6/10 LOCATION: Bilateral chest FINDINGS: Single AP view of the chest. The lungs are clear. Cardiomediastinal silhouette within normal limits. No evidence of pleural effusion or pneumothorax. CONCLUSION: No acute cardiopulmonary disease identified. Zander Luciano MD on July 27, 2016 at 23:57 Board Certified Radiologist. This report was verified electronically.
[2016-07-28 00:02] LABS: ANION GAP 11 MEQ/L (5-15); APTT (PATIENT) 28.4 SEC (24.3-30.1); BICARBONATE 20.8 MEQ/L (21.0-32.0); BLOOD UREA NITROGEN 10 MG/DL (7-18); PROTHROMBIN TIME - PATIENT 11.3 SEC (9.8-11.6)
[2016-07-28 00:04] LABS: AST (GOT) 18 U/L (15-37)
[2016-07-28 00:04] LABS: METHOD OF COLLECTION CATH; NITRITE,URINE POS (NEG); URINE COLOR AMBER (YELLW/STRAW)
[2016-07-28 00:05] LABS: ALT (GPT) 13 U/L (10-53); GLOMERULAR FILTRATION RATE 70 ML/MIN (>89)
[2016-07-28 00:06] LABS: TOTAL BILIRUBIN ADULT 0.7 MG/DL (0.2-1.0)
[2016-07-28 00:06] LABS: BACTERIA, URINE MOD /hpf; MUCUS URINE FEW /lpf (OCC); RBC, URINE 0-3 /hpf (0-3); SQUAMOUS EPITHELIAL CELL URINE 0-5 /hpf (0-5)
[2016-07-28 00:07] LABS: ALKALINE PHOSPHATASE 45 U/L (45-117)
[2016-07-28 00:07] LABS: COMMENT (UR) CATH-CULTURE IND; CULTURE IF INDICATED CATH CULTURE IND
[2016-07-28 00:10] LABS: CREATINE KINASE 31 U/L (26-192)
[2016-07-28] MEDS ORDERED: CIPR-9 PO (00:24)
[2016-07-28] MEDS ORDERED: ASPIRIN 325 MG TAB PO ONE (00:30)
[2016-07-28] MEDS ORDERED: CIPROFLOXACIN 500 MG TAB PO ONE (00:30)
[2016-07-28 00:43] LABS: DIGOXIN 1.2 NG/ML (0.8-2.0)
--- NOTE | 2016-07-28 18:30 | EKG ---
Date Performed: 07/27/2016 Time Performed: 22:19:10 PTAGE: 66 years EKG: Sinus tachycardia with borderline 1st degree A-V block. Inferior and septal ST-T changes ar e nonspecific When compared to previous tracing, the nonspecific ST-T wave Changes are new. Clinical correlation to assess the significance is suggested. Borderline ECG PREVIOUS TRACING : 07/23/2016 22.22 DOCTOR: Katie Avila Interpretating Date/Time 07/28/2016 18:30:21
[2016-11-02] MEDS ORDERED: OXYC40TA20 PO (23:02)
[2016-11-02] MEDS ORDERED: QUET1TAB7 PO (23:02)
[2016-11-02] MEDS ORDERED: CREON24 PO (23:02)
[2016-11-02] MEDS ORDERED: OMEP40CA2 PO (23:02)
[2016-11-02] MEDS ORDERED: ZOFR8TAB PO (23:02)
[2016-11-02] MEDS ORDERED: ADVA250A INH (23:02)
[2016-11-02] MEDS ORDERED: TRAZ50TA12 PO (23:02)
[2016-11-02] MEDS ORDERED: ESTR1 PO (23:02)
[2016-11-02] MEDS ORDERED: SUMA85TA PO (23:02)
[2016-11-02] MEDS ORDERED: OXYC15TA PO (23:02)
[2016-11-02] MEDS ORDERED: METH1TAB2 PO (23:02)
[2016-11-02] MEDS ORDERED: BETH25TA2 PO (23:02)
[2016-11-02] MEDS ORDERED: SOMA350T PO (23:02)
[2016-11-02] MEDS ORDERED: HYDR500C PO (23:02)
[2016-11-02] MEDS ORDERED: PEPP90CA PO (23:02)
[2016-11-02] MEDS ORDERED: METO50TA PO (23:02)
[2016-11-02] MEDS ORDERED: ASPI81TA81 (23:02)
[2016-11-02] MEDS ORDERED: TEMA30CA PO (23:02)
== END 2016-07-28 00:50 | disposition left against medical advice (07) ==
LOC: PHEFT 22:12
DX: N39.0 Urinary tract infection, site not specified (principal); R07.9 Chest pain, unspecified; D47.Z9 Other specified neoplasms of uncertain behavior of lymphoid, hematopoietic and related tissue; J45.909 Unspecified asthma, uncomplicated; I48.91 Unspecified atrial fibrillation; I10 Essential (primary) hypertension; E78.00 Pure hypercholesterolemia, unspecified; J44.9 Chronic obstructive pulmonary disease, unspecified; Z72.0 Tobacco use; B96.1 Klebsiella pneumoniae [K. pneumoniae] as the cause of diseases classified elsewhere
CPT/HCPCS: 71010; 80053; 80162; 81001; 82550; 84484; 85025; 85610; 85730; 87077; 87086; 87186; 93005

== ENCOUNTER 2016-08-15 18:12 | Emergency (ER) | payer MEDICARE, OTHER ==
[~2016-08-15] VITALS: Ht 157.5 cm; Wt 59.8 kg
[~2016-08-15 18:12] MED LIST changes: +BETH25TA2 PO; -CALG500 PO; +CIPR-9 PO; -CIPR500T2 PO; -CLON.1 PO; -CYAN1000P IM; -METO25TA3 PO; -METR500T10 PO; +OMEP40CA2 PO; +OXYC40TA9 PO; -PANT40TA3 PO; -Potassium Cl 40 Meq/30 Ml Liq PO; -TRIL135C PO; +[UNRECOGNIZED DRUG - OTHER] PO; +[UNRECOGNIZED DRUG - OTHER] PO
[2016-08-15 18:23] VITALS: BP 142/90; PULSE 88; RESP 18; TEMP 97.6; O2SAT 98
[2016-08-15 18:36] VITALS: BP 189/95; PULSE 85; RESP 18; O2SAT 100
[2016-08-15] MEDS ORDERED: SUMA85TA PO (18:51)
[2016-08-15] MEDS ORDERED: SOMA350T PO (18:51)
[2016-08-15] MEDS ORDERED: CREO3000 PO (18:51)
[2016-08-15] MEDS ORDERED: ENAL10TA PO (18:51)
[2016-08-15] MEDS ORDERED: OXYC30TA PO (18:51)
[2016-08-15] MEDS ORDERED: TEMA30CA PO (18:51)
[2016-08-15] MEDS ORDERED: CARV3.12 PO (18:51)
[2016-08-15] MEDS ORDERED: TRAZ50TA12 PO (18:51)
--- NOTE | 2016-08-15 19:45 | PD ---
HPI Chief Complaint: Abdominal Pain Time Seen by Provider: 19:23 Travel History International Travel<30 days: No Contact w/Intl Traveler<30days: No Traveled to known affect area: No History of Present Illness HPI 66-year-old female presents to the emergency department for complaint of abdominal pain and chest palpitations with nausea without vomiting or diarrhea and reported decreased urine output. Patient with medical history of gastroparesis, hypertension, CVA, migraines, COPD, chronic pain syndrome, myeloproliferative blood disease, atrial fibrillation, heart block secondary to hypokalemia/hypomagnesemia on digoxin (04/2016), pancreatitis, hepatitis B, colitis, diverticulitis, electrolyte disturbance, metabolic encephalopathy, with frequent recent hospital admissions. The patient is also followed by Dr. Chester as her primary care provider, Dr. Falk as her diazo technician, Dr. Cannon as her pain management physician, Dr. Ramos as her aviation tactical readiness officer , and with recent May admission was evaluated by Dr. Ahn of neurology. Patient reportedly has had no recent fever or chills. Patient does not report chest discomfort and denies any radiating discomfort or pain; no referred neck, jaw, shoulder, arm, or back pain. No reported shortness of breath. Patient does report feeling like her heart is racing or palpitations. Abdominal pain is epigastric periumbilical and constant. No reported coffee-ground emesis, hematemesis, bilious emesis, melena, or hematochezia. Patient recently started on Myrbetriq for overactive bladder on Thursday by her urologist. Patient rates her pain 8/10 in intensity. Patient is unable to identify exacerbating or alleviating factors. Significant other/caregiver states the patient has chronic confusion and has not been having any chest pain, has not presented with any shortness of breath, has had no vomiting, no diarrhea, and has had regular episodes of urine output. Briefly during interview patient and caregiver began to argue which was readily de-escalated. According to the the patient was just recently discharged from [facility] this past Thursday after a 5 day stay for recurrent heart block during that hospitalization felt to be due to digoxin which was discontinued as a daily medication and lisinopril was discontinued as a daily medication; patient is now on carvedilol and enalapril. When patient was seen by her urologist on Thursday she was also started on nitrofurantoin. During her [facility] admission she was also evaluated for chronic altered mentation which has been present since before May with an MRI of the brain which reportedly revealed no acute abnormality according to the and an EEG was done that was reportedly unremarkable and ammonia level was done that was not reportedly not elevated and they had discussed doing an LP but that was deferred. Patient's had no new change in mentation, her confusion has remained unchanged since April; no headache, no injury or fall. Again no recent febrile illness or chills. Patient reports symptoms seem to have begun since starting the new medication Myrbetriq. 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 on digoxin (04/2016) pancreatitis hepatitis B colitis diverticulitis electrolyte disturbance metabolic encephalopathy short term memory disturbance bilateral tubal ligation, colonoscopy, sigmoidoscopy, endoscopy, MRCP, cholecystectomy, herniorrhaphy, bladder suspension, left breast lumpectomy, hysterectomy; tobacco use; nursing notes reviewed Hx Anticoagulant Therapy: Yes (asa 81mg) Anemia: Yes (MYLOPROLIFERATIVE BLOOD DISORDER) Arthritis: No Asthma: Yes Atrial Fibrillation: Yes Autoimmune Disease: No Blood Disorders: No Anxiety: No Depression: No Heart Rhythm Problems: Yes (tachy) Cancer: No Cardiovascular Problems: Yes (htn on meds. hx of heart block) High Cholesterol: Yes Chemotherapy: No Chest Pain: No Congestive Heart Failure: No COPD: Yes (EMPHYSEMA) Cerebrovascular Accident: Yes Diabetes: No Diminished Hearing: No Endocrine: No Gastrointestinal Disorders: Yes GERD: Yes Glaucoma: No Genitourinary: No Headaches: No Hepatitis: Yes (HEP-B) Hiatal Hernia: Yes Hypertension: Yes Immune Disorder: No Kidney Stones: No Musculoskeletal: No Neurologic: No Psychiatric: No Respiratory: Yes (copd, oxygen at home prn) Migraines: Yes Myocardial Infarction: No Radiation Therapy: No Renal Failure: No Seizures: No Sickle Cell Disease: No Sleep Apnea: No Thyroid Disease: No Ulcer: No ?: Not Menopausal: Yes Tubal Ligation: Yes Past Surgical History Abdominal Surgery: Yes (NAPOLEON,HERNIA REPAIR X 3) AICD: No Cardiac Surgery: No Cholecystectomy: Yes Ear Surgery: No Endocrine Surgery: No Eye Surgery: No Genitourinary Surgery: Yes (BLADDER SUSPENSION) Gynecologic Surgery: Yes (LT BREAST LUMPECTOMY) Hysterectomy: Yes Insulin Pump: No Joint Replacement: No Neurologic Surgery: No Oral Surgery: No Pacemaker: No Thoracic Surgery: No Other Surgery: Yes Social History Alcohol Use: No Tobacco Use: Yes (3-4 DAILY) Substance Use: No Allergies-Medications (Allergen,Severity, Reaction): Coded Allergies: Bactrim (Verified Allergy, Severe, "VOMITING", 08/15/16) Inderal (Verified Allergy, Severe, "CAUSES ASTHMA ATTACK", 08/15/16) Indocin (Verified Allergy, Severe, "NAUSEA", 08/15/16) Penicillin (Verified Allergy, Severe, "HEART FAILURE", 08/15/16) Procardia (Verified Allergy, Severe, "RAPID HEART BEAT", 08/15/16) states does not have a allergy to this medication carlos Grullon 08/15/16 Reported Meds & Prescriptions Reported Meds & Active Scripts Active Pyridium (Phenazopyridine HCl) 100 Mg Tab 100 Mg PO Q8H PRN Doxycycline Hyclate 100 Mg Cap 100 Mg PO BID 7 Days Risperdal (Risperidone) 0.25 Mg Tab 0.25 Mg PO Q12HR Zofran (Ondansetron HCl) 8 Mg Tab 8 Mg PO TID PRN Reported Creon (Pancrelipase) 3,000-9,500-15,000 Units Cap 1 Cap PO DAILY Soma (Carisoprodol) 350 Mg Tab 350 Mg PO BID PRN Oxycodone (Oxycodone HCl) 30 Mg Tab 30 Mg PO Q8HR Temazepam 30 Mg Cap 30 Mg PO HS PRN Trazodone (Trazodone HCl) 50 Mg Tab 50 Mg PO HS Carvedilol 3.125 Mg Tab 3.125 Mg PO BID Enalapril (Enalapril Maleate) 10 Mg Tab 10 Mg PO BID Treximet (Sumatriptan-Naproxen) 85-500 Mg Tab 1 Tab PO ONCE PRN May take a second dose after 2 hours if needed. Maximum 2 tabs in 24 hour period. Oxycontin (Oxycodone HCl) 40 Mg Tab 80 Mg PO Q8HR [IB Dixon] 1 PO BEFORE MEALS [penpep ] 400,000 PO TID Bethanechol 25 Mg Tab 25 Mg PO Q8HR Omeprazole 40 Mg Cap 40 Mg PO DAILY Ventolin Hfa 18 GM Inh (Albuterol Sulfate) 90 Mcg/Act Aer 1 Puff INH Q4H PRN Advair Diskus Inh (Fluticasone-Salmeterol Inh) 100-50 Mcg/Blist Aer 1 Puff INH BID Rinse mouth after use. Levalbuterol Neb (Levalbuterol HCl) 0.63 Mg/3 Ml Neb 0.63 Mg INH QID Aspirin 81 Mg Tabdr 81 Mg PO DAILY Hydroxyurea 500 Mg Cap 500 Mg PO DAILY Review of Systems Except as stated in HPI: all other systems reviewed are Neg General / Constitutional: No: Fever, Chills HENT: No: Congestion Cardiovascular: Positive: Chest Pain or Discomfort, Palpitations, Tachycardia, Diaphoresis, No: Syncope, Dyspnea on exertion, Edema Respiratory: No: Cough, Shortness of Breath Gastrointestinal: Positive: Nausea, Abdominal Pain, No: Vomiting, Diarrhea, Hematemesis, Hematochezia, Loss of Appetite Genitourinary: Positive: Decreased Urinary Output, No: Dysuria Musculoskeletal: No: Myalgias, Arthralgias, Edema, Pain Skin: No Rash Neurologic: Positive: Weakness, No: Dizziness, Syncope, Focal Abnormalities, Coordination Problem Psychiatric: Positive: Anxiety Endocrine: No: Heat Intolerance Hematologic/Lymphatic: No: Easy Bruising Physical Exam Narrative GENERAL: Well-developed well-nourished female in no apparent distress no acute distress no respiratory distress; SKIN: Warm and dry. HEAD: Atraumatic. Normocephalic. EYES: Pupils equal and round. No scleral icterus. No injection or drainage. ENT: No nasal bleeding or discharge. Mucous membranes pink and moist. NECK: Trachea midline. No JVD. CARDIOVASCULAR: Regular rate and rhythm. RESPIRATORY: No accessory muscle use. Clear to auscultation. Breath sounds equal bilaterally. GASTROINTESTINAL: Abdomen soft, non-tender, nondistended. Hepatic and splenic margins not palpable. MUSCULOSKELETAL: Extremities without clubbing, cyanosis, or edema. No obvious deformities. NEUROLOGICAL: Awake and alert. No obvious cranial nerve deficits. Motor grossly within normal limits. Five out of 5 muscle strength in the arms and legs. Normal speech. PSYCHIATRIC: Appropriate mood and affect; insight and judgment normal. Data Data Last Documented VS Vital Signs Date Time Temp Pulse Resp B/P Pulse Ox O2 Delivery O2 Flow Rate FiO2 4/1/17 00:40 90 18 98 08/15/16 22:38 98.1 Room Air 08/15/16 21:00 171/80 Orders Complete Blood Count With Diff (08/15/16 18:44) Comprehensive Metabolic Panel (08/15/16 18:44) Urinalysis - C+S If Indicated (08/15/16 18:44) Iv Access Insert/Monitor (08/15/16 18:44) Oxygen Administration (08/15/16 18:44) Oximetry (08/15/16 18:44) Lipase (08/15/16 18:44) Lactic Acid (08/15/16 19:24) Electrocardiogram (08/15/16 ) Drug Screen, Random Urine (08/15/16 19:24) Ckmb (Isoenzyme) Profile (08/15/16 18:44) Magnesium (Mg) (08/15/16 18:44) Troponin I (08/15/16 18:44) Digoxin (08/15/16 18:44) Chest, Single Ap (08/15/16 ) Sodium Chlor 0.9% 1000 Ml Inj (Ns 1000 M (08/15/16 20:45) Blood Glucose (08/15/16 20:31) Blood Culture (08/15/16 20:34) Urine Culture (08/15/16 21:26) Magnesium Oxide (Mag-Ox) (08/15/16 22:00) Potassium Chloride (Kcl) (08/15/16 22:00) Ct Abd/Pel W Iv Contrast(Rout) (08/15/16 ) Iohexol 350 Inj (Omnipaque 350 Inj) (08/15/16 23:14) Labs Laboratory Tests Test 08/15/16 08/15/16 08/15/16 08/15/16 20:05 20:40 20:58 21:26 White Blood Count 12.6 TH/MM3 Red Blood Count 3.57 MIL/MM3 Hemoglobin 13.3 GM/DL Hematocrit 38.3 % Mean Corpuscular Volume 107.5 FL Mean Corpuscular Hemoglobin 37.4 PG Mean Corpuscular Hemoglobin 34.8 % Concent Red Cell Distribution Width 14.3 % Platelet Count 143 TH/MM3 Mean Platelet Volume 9.1 FL Neutrophils (%) (Auto) 64.9 % Lymphocytes (%) (Auto) 28.9 % Monocytes (%) (Auto) 4.9 % Eosinophils (%) (Auto) 0.6 % Basophils (%) (Auto) 0.7 % Neutrophils # (Auto) 8.2 TH/MM3 Lymphocytes # (Auto) 3.6 TH/MM3 Monocytes # (Auto) 0.6 TH/MM3 Eosinophils # (Auto) 0.1 TH/MM3 Basophils # (Auto) 0.1 TH/MM3 CBC Comment DIFF FINAL Differential Comment Sodium Level 143 MEQ/L Potassium Level 3.2 MEQ/L Chloride Level 104 MEQ/L Carbon Dioxide Level 27.7 MEQ/L Anion Gap 11 MEQ/L Blood Urea Nitrogen 10 MG/DL Creatinine 0.89 MG/DL Estimat Glomerular Filtration 63 ML/MIN Rate Random Glucose 112 MG/DL Calcium Level 9.4 MG/DL Magnesium Level 1.4 MG/DL Total Bilirubin 0.8 MG/DL Aspartate Amino Transf 19 U/L (AST/SGOT) Alanine Aminotransferase 18 U/L (ALT/SGPT) Alkaline Phosphatase 47 U/L Total Creatine Kinase 36 U/L Troponin I LESS THAN 0.02 NG/ML Total Protein 7.8 GM/DL Albumin 3.6 GM/DL Lipase 133 U/L Digoxin Level 0.2 NG/ML Lactic Acid Level 1.0 mmol/L Urine Color MARYANN Urine Turbidity SLIGHT Urine pH 6.0 Urine Specific [place] 1.016 Urine Protein 100 mg/dL Urine Glucose (UA) NEG mg/dL Urine Ketones NEG mg/dL Urine Occult Blood NEG Urine Nitrite NEG Urine Bilirubin NEG Urine Leukocyte Esterase SMALL Urine RBC 0-3 /hpf Urine WBC 25-49 /hpf Urine Squamous Epithelial 0-5 /hpf Cells Urine Bacteria FEW /hpf Urine Yeast (Budding) FEW Microscopic Urinalysis Comment CULTURE INDICATED Urine Opiates Screen NEG Urine Barbiturates Screen POS Urine Amphetamines Screen NEG Urine Benzodiazepines Screen NEG Urine Cocaine Screen NEG Urine Cannabinoids Screen NEG MDM Medical Decision Making Medical Screen Exam Complete: Yes Emergency Medical Condition: Yes Medical Record Reviewed: Yes Interpretation(s) CBC mild leukocytosis 12,600 with normal automated differential hemoglobin hematocrit within normal range mild thrombocytopenia 143,000 platelet count complete metabolic panel remarkable for hypokalemia of 3.2 (oral replacement provided) with normal anion gap normal range bicarbonate and normal renal function with BUN of 10 and creatinine 0.89 LFTs are found to be in normal range as well as lipase of 133, not elevated Magnesium was mildly decreased at 1.4; oral replacement provided CK total is 36, not elevated; troponin I less than 0.02, not elevated Lactic acid is 1.0, not elevated Urine drug screen is positive for barbiturates otherwise negative Digoxin is 0.2, not elevated Urinalysis is positive for leukocyte Estrace white blood cells 25-49 and bacteria cultures indicated Vital Signs Date Time Temp Pulse Resp B/P Pulse Ox O2 Delivery O2 Flow Rate FiO2 08/15/16 21:00 92 18 171/80 98 Room Air 08/15/16 20:14 99 Room Air 08/15/16 20:14 99 Room Air 08/15/16 18:36 85 18 189/95 100 Room Air 08/15/16 18:23 97.6 88 18 142/90 98 Last Impressions Chest X-Ray 08/15/16 0000 Signed Impressions: Service Date/Time: Monday, August 15, 2016 20:03 - CONCLUSION: No acute disease. Brennan See MD CBC & BMP Diagram 08/15/16 20:05 08/15/16 20:40 Vital Signs Date Time Temp Pulse Resp B/P Pulse Ox O2 Delivery O2 Flow Rate FiO2 08/15/16 21:00 92 18 171/80 98 Room Air 08/15/16 20:14 99 Room Air 08/15/16 20:14 99 Room Air 08/15/16 18:36 85 18 189/95 100 Room Air 08/15/16 18:23 97.6 88 18 142/90 98 EKG normal sinus rhythm with first-degree AV block heart rate 82 nonspecific RSR prime no acute ST elevation or injury pattern change or ectopy noted CT abd/pel w/ iv contrast: CONCLUSION: 1. No acute finding is identified within the abdomen or pelvis. 2. Nonacute findings include 2 mm nonobstructing left renal stone and severe atherosclerotic disease. Mayur Hogue MD on August 15, 2016 at 23:35 Board Certified Radiologist. This report was verified electronically. Differential Diagnosis Chest pain, ACS, myocardial infarction, CHF, abdominal pain, gastritis, peptic ulcer disease, pancreatitis, choledocholithiasis, colitis, diverticulitis, ischemic colitis, electrolyte disturbance, metabolic encephalopathy, sepsis, adverse medication reaction/interaction, UTI, hyperammonemia, polypharmacy Narrative Course Patient placed on fence laborer; IV access obtained; specimens collected and sent for resulting; random glucose ordered; EKG performed which reveals no acute ST elevation or injury pattern change lab re-draws @2042 patient not reporting any chest pain or shortness of breath continues to complain of need to have a bowel movement and urinary urgency. lab re-draws @ 21:20 patient ambulated to bathroom with minimal assistance at patient 's side -- positive urine output; specimen collected and sent to lab; patient with mild hypokalemia and hypomagnesemia --corrected with oral replacement; CT abdomen/pelvis ordered for complaint of abdominal pain, abdomen is soft mildly tender diffusely without guarding or rebound patient continues to complain of urinary urgency with her chronic memory disturbance difficult to elucidate clearly the severity of her abdominal pain versus her urinary urgency. Patient resting comfortably smiling voicing no concerns or complaints other than complains of urinary urgency antibiotic coverage expanded to doxycycline 100 mg twice daily (as just finished cipro); potassium and magnesium have been replaced; lab values found to be otherwise in normal range; patient is ambulated several times to the bathroom without any difficulty; at this point time patient appears to be stable for outpatient management and follow-up with her primary care provider on Thursday and patient and has been informed to monitor her temperature for fever and should she develop fever or any other concerns she may require reevaluation in the emergency department at that time. CT abdomen and pelvis reveals no acute abnormality. Patient and 's questions have been answered to their satisfaction and patient is stable for outpatient management. Diagnosis Primary Impression: Urinary urgency Additional Impressions: UTI (urinary tract infection) Qualified Code: N39.0 - Urinary tract infection without hematuria, site unspecified Adverse drug reaction Qualified Code: T88.7XXA - Adverse drug reaction, initial encounter Hypokalemia Hypomagnesemia Nephrolithiasis Referrals: Primary Care Physician 3 days Patient Instructions: General Instructions Additional Instructions: Complete antibiotic as prescribed discontinue Myrbetriq until follow up with your provider monitor temperature every 4 hours and administer tylenol/acetaminophen every 4 hours as needed for fever 100.4F or greater Return to the emergency department for any concerns or change in condition Continue current medications as presently prescribed as of your discharge from hospital Thursday except for myrbetriq use Encourage fluid hydration Add potassium containing and magnesium containing foods and beverages to dietary intake Med/Other Pt SpecificInfo: Prescription(s) given, Existing Med Changed ( hold Myrbetriq x 3 days) Scripts Phenazopyridine (Pyridium)100 Mg [id number] Mg PO Q8H PRN (DYSURIA) #6 TAB Ref 0 Prov:Kacie Hong MD 08/16/16 Doxycycline Hyclate 100 Mg [id number] Mg PO BID 7 Days Ref 0 Prov:Kacie Hong MD 08/16/16 Disposition: 01 DISCHARGE HOME Condition: Stable Kacie Hong MD Aug 15, 2016 19:45
[2016-08-15 20:14] VITALS: O2SAT 99
[2016-08-15 20:16] LABS: AUTOMATED NEUTROPHIL # 8.2 TH/MM3 (1.8-7.7); BASOPHIL # 0.1 TH/MM3 (0-0.2); BASOPHIL % 0.7 % (0.0-2.0); EOSINOPHIL # 0.1 TH/MM3 (0-0.4); EOSINOPHIL % 0.6 % (0.0-4.0); HEMATOCRIT 38.3 % (35.0-46.0); LYMPH % 28.9 % (9.0-44.0); LYMPHOCYTE # 3.6 TH/MM3 (1.0-4.8); MEAN CELL VOLUME 107.5 FL (80.0-100.0); MEAN CORPUSCULAR HEMOGLOBIN 37.4 PG (27.0-34.0); MEAN CORPUSCULAR HGB CONC 34.8 % (32.0-36.0); MONO % 4.9 % (0.0-8.0); NEUT % 64.9 % (16.0-70.0); PLATELET COUNT 143 TH/MM3 (150-450); RED BLOOD COUNT 3.57 MIL/MM3 (4.00-5.30); RED CELL DISTRIBUTION WIDTH 14.3 % (11.6-17.2); WHITE BLOOD COUNT 12.6 TH/MM3 (4.0-11.0)
[2016-08-15 20:17] LABS: HEMO FLAGS DIFF FINAL
--- NOTE | 2016-08-15 20:33 | RADHPO ---
EXAM DATE/TIME: 08/15/2016 20:03 [facility] COMPARISON: CHEST SINGLE AP, July 27, 2016, 23:40. INDICATIONS : Chest pain and vomiting. MEDICAL HISTORY : Chronic obstructive pulmonary disease. Cerebrovascular disease. Hypertension. SURGICAL HISTORY : Tubal ligation. Hysterectomy. Cholecystectomy. ENCOUNTER: Initial ACUITY: 1 day PAIN SCORE: 7/10 LOCATION: Bilateral chest FINDINGS: A single view of the chest demonstrates the lungs to be symmetrically aerated without evidence of mas s, infiltrate or effusion. The cardiomediastinal contours are unremarkable. Osseous structures are intact. CONCLUSION: No acute disease. Brennan See MD on August 15, 2016 at 20:31 Board Certified Radiologist. This report was verified electronically.
[2016-08-15] MEDS ORDERED: SODIUM CHLOR 0.9% 1000 ML INJ 1,000 ML IV SCH (20:45)
[2016-08-15 21:00] VITALS: BP 171/80; PULSE 92; RESP 18; O2SAT 98
[2016-08-15 21:15] LABS: CHLORIDE 104 MEQ/L (98-107); POTASSIUM 3.2 MEQ/L (3.5-5.1); SODIUM (NA) 143 MEQ/L (136-145)
[2016-08-15 21:19] LABS: ANION GAP 11 MEQ/L (5-15); BICARBONATE 27.7 MEQ/L (21.0-32.0); BLOOD UREA NITROGEN 10 MG/DL (7-18); MAGNESIUM 1.4 MG/DL (1.5-2.5)
[2016-08-15 21:22] LABS: ALT (GPT) 18 U/L (10-53); AST (GOT) 19 U/L (15-37); GLOMERULAR FILTRATION RATE 63 ML/MIN (>89)
[2016-08-15 21:24] LABS: TOTAL BILIRUBIN ADULT 0.8 MG/DL (0.2-1.0)
[2016-08-15 21:25] LABS: ALKALINE PHOSPHATASE 47 U/L (45-117)
[2016-08-15 21:39] LABS: BLOOD, URINE NEG (NEG); GLUCOSE,URINE NEG (NEG); KETONE, URINE NEG (NEG); NITRITE,URINE NEG (NEG)
[2016-08-15 21:40] LABS: CREATINE KINASE 36 U/L (26-192)
[2016-08-15 21:45] LABS: URINE COLOR AMBER (YELLW/STRAW)
[2016-08-15 21:46] LABS: BACTERIA, URINE FEW /hpf; COMMENT (UR) CULTURE INDICATED; CULTURE IF INDICATED CULTURE INDICATED; RBC, URINE 0-3 /hpf (0-3); SQUAMOUS EPITHELIAL CELL URINE 0-5 /hpf (0-5)
[2016-08-15 21:47] LABS: AMPHETAMINE, URINE NEG (NEG); BARBITURATES, URINE POS (NEG); COCAINE, URINE NEG (NEG)
[2016-08-15] MEDS ORDERED: MAGNESIUM OXIDE 400 MG TAB PO ONE (22:00)
[2016-08-15] MEDS ORDERED: POTASSIUM CHLORIDE 20 MEQ CONTROLLED RELEASE TAB PO ONE (22:00)
[2016-08-15 22:01] LABS: DIGOXIN 0.2 NG/ML (0.8-2.0)
[2016-08-15 22:38] VITALS: PULSE 92; RESP 18; TEMP 98.1; O2SAT 99
[2016-08-15] MEDS ORDERED: IOHEXOL 350 MG/ML 10 ML VIAL (for RAD DIAG) IV ONE (23:14)
--- NOTE | 2016-08-15 23:43 | RADHPO ---
EXAM DATE/TIME: 08/15/2016 22:50 [facility] COMPARISON: CT ABDOMEN & PELVIS W CONTRAST, May 03, 2016, 1:15. INDICATIONS : Diffuse abdominal pain with nausea. IV CONTRAST: 95 cc Omnipaque 350 (iohexol) IV ORAL CONTRAST: No oral contrast ingested. RADIATION DOSE: 7.48 CTDIvol (mGy) MEDICAL HISTORY : Chronic obstructive pulmonary disease. Gastroesophageal reflux disease. Gastroparesis. SURGICAL HISTORY : Cholecystectomy. Tubal ligation.Hiatal hernia repair. ENCOUNTER: Initial ACUITY: 1 day PAIN SCALE: 7/10 LOCATION: Abdomen. TECHNIQUE: Volumetric scanning of the abdomen and pelvis was performed. Using automated exposure control and ad justment of the mA and/or kV according to patient size, radiation dose was kept as low as reasonably achievable to obtain optimal diagnostic quality images. FINDINGS: Examination quality is degraded by respiratory motion artifact. LOWER LUNGS: The visualized lower lungs are clear. LIVER: Homogeneous density with stable 4 mm low-density lesion in the liver dome. The liver measures 18.8 cm in length. There is no dilation of the biliary tree. There are multiple clips in the gallbladder fo ssa related to prior cholecystectomy. There is significant beam hardening artifact associated with th e clips. SPLEEN: Measures at the upper limits for normal in size at 13 cm in length. No lesion is seen. PANCREAS: Within normal limits. KIDNEYS: Normal in size and shape. There is no mass or hydronephrosis. There is a 5 mm low density lesion in the right mid kidney that is too small to characterize. A 2 mm nonobstructing stone is present in the left lower pole collecting system. ADRENAL GLANDS: Within normal limits. VASCULAR: There is no aortic aneurysm. There is severe atherosclerotic disease. BOWEL/MESENTERY: The stomach, small bowel, and colon demonstrate no acute abnormality. The appendix is normal. There is no free intraperitoneal air. There is questionable trace free fluid adjacent to the liver. ABDOMINAL WALL: Within normal limits. RETROPERITONEUM: There is no lymphadenopathy. BLADDER: No wall thickening or mass. REPRODUCTIVE: The uterus is absent. INGUINAL: There is no lymphadenopathy or hernia. MUSCULOSKELETAL: There are degenerative changes of the spine. Clips are present in the pubic bones bilaterally related to prior bladder surgery. CONCLUSION: 1. No acute finding is identified within the abdomen or pelvis. 2. Nonacute findings include 2 mm nonobstructing left renal stone and severe atherosclerotic disease. Mayur Hogue MD on August 15, 2016 at 23:35 Board Certified Radiologist. This report was verified electronically.
[2016-08-16] MEDS ORDERED: DOXY100C PO (00:07)
[2016-08-16] MEDS ORDERED: PHEN0.4T PO (00:07)
--- NOTE | 2016-08-17 21:26 | EKG ---
Date Performed: 08/15/2016 Time Performed: 19:35:10 PTAGE: 66 years EKG: Sinus rhythm with 1st degree A-V block. rSr'(V1) - probable normal variant Septal T wave changes are nonspecific Abnormal ECG PREVIOUS TRACING : 07/27/2016 22.19 DOCTOR: Kiana Morris Interpretating Date/Time 08/17/2016 21:22:50
[2016-11-02] MEDS ORDERED: SOMA350T PO (23:02)
[2016-11-02] MEDS ORDERED: SUMA85TA PO (23:02)
[2016-11-02] MEDS ORDERED: BETH25TA2 PO (23:02)
[2016-11-02] MEDS ORDERED: PEPP90CA PO (23:02)
[2016-11-02] MEDS ORDERED: HYDR500C PO (23:02)
[2016-11-02] MEDS ORDERED: QUET1TAB7 PO (23:02)
[2016-11-02] MEDS ORDERED: METH1TAB2 PO (23:02)
[2016-11-02] MEDS ORDERED: ZOFR8TAB PO (23:02)
[2016-11-02] MEDS ORDERED: OXYC40TA20 PO (23:02)
[2016-11-02] MEDS ORDERED: METO50TA PO (23:02)
[2016-11-02] MEDS ORDERED: TRAZ50TA12 PO (23:02)
[2016-11-02] MEDS ORDERED: CREON24 PO (23:02)
[2016-11-02] MEDS ORDERED: OXYC15TA PO (23:02)
[2016-11-02] MEDS ORDERED: OMEP40CA2 PO (23:02)
[2016-11-02] MEDS ORDERED: TEMA30CA PO (23:02)
[2016-11-02] MEDS ORDERED: ADVA250A INH (23:02)
[2016-11-02] MEDS ORDERED: ESTR1 PO (23:02)
[2016-11-02] MEDS ORDERED: ASPI81TA81 (23:02)
== END 2016-08-16 01:02 | disposition home or self-care (01) ==
LOC: PHED 18:12
DX: N39.0 Urinary tract infection, site not specified (principal); E83.42 Hypomagnesemia; E87.6 Hypokalemia; R41.3 Other amnesia; N20.0 Calculus of kidney; Z72.0 Tobacco use; R94.31 Abnormal electrocardiogram [ECG] [EKG]; K85.90 Acute pancreatitis without necrosis or infection, unspecified; Z90.49 Acquired absence of other specified parts of digestive tract; Z86.73 Personal history of transient ischemic attack (TIA), and cerebral infarction without residual deficits; J44.9 Chronic obstructive pulmonary disease, unspecified; I48.91 Unspecified atrial fibrillation; I10 Essential (primary) hypertension
CPT/HCPCS: 71010; 74177; 80053; 80162; 80307; 81001; 82550; 83605; 83690; 83735; 84484; 85025; 87040; 87086; 93005; 96360; 99285; J7030; Q9967

== ENCOUNTER 2016-09-02 23:02 | Inpatient (IN) | payer MEDICARE, OTHER ==
[~2016-09-02] VITALS: Ht 154.9 cm; Wt 66.2 kg
[~2016-09-02 23:02] MED LIST changes: +CARV3.12 PO; -CIPR-9 PO; +CREO3000 PO; +DOXY100C PO; +ENAL10TA PO; -LANO0.2510 PO; -LISI-519 PO; +OXYC30TA PO; +PHEN0.4T PO; +SOMA350T PO; +SUMA85TA PO; +TEMA30CA PO; -TRAZ100T4 PO; +TRAZ50TA12 PO
[2016-09-02 23:07] VITALS: BP 91/43; PULSE 63; RESP 20; O2SAT 99
[2016-09-02 23:18] VITALS: BP 79/45; PULSE 62; RESP 21; TEMP 96.4; O2SAT 100
[2016-09-02 23:19] VITALS: BP 79/45; PULSE 63; RESP 17; O2SAT 100
[2016-09-02] MEDS ORDERED: TERBUTALINE INJ 1 MG/ML AMP SQ PRN (23:30)
[2016-09-02] MEDS ORDERED: SODIUM CHLOR 0.9% 1000 ML INJ 1,000 ML IV ONE ×3 (23:30)
[2016-09-02] MEDS ORDERED: NOREPINEPHRINE-DEXTROSE DRIP 250 ML IV SCH (23:30)
[2016-09-02] MEDS ORDERED: NOREPINEPHRINE 4 MG/4 ML AMP ONE (23:31)
[2016-09-02 23:42] VITALS: BP 104/49; PULSE 64; RESP 21; TEMP 96.6; O2SAT 100
[2016-09-02] MEDS ORDERED: AZTREONAM INJ 1,000 MG in SODIUM CHLORIDE 0.9% INJ 100 ML IV ONE (23:45)
[2016-09-02] MEDS ORDERED: VANCOMYCIN INJ 1,000 MG in SODIUM CHLOR 0.9% 250 ML INJ 250 ML IV ONE (23:45)
--- NOTE | 2016-09-02 23:45 | PD ---
HPI Chief Complaint: Altered Mental Status Time Seen by Provider: 23:22 Travel History International Travel<30 days: No Contact w/Intl Traveler<30days: No Traveled to known affect area: No History of Present Illness HPI 66-year-old female was brought in by EMS from home for altered mental status. Patient has history of chronic recurrent abdominal pain. Patient complains of recent constipation and was given Fleet enema this evening. Patient's reported to EMS personnel the patient became pale and diaphoretic and lethargic subsequently. EMS was called. Patient's systolic blood pressure was found in the 60s. Patient was transported to ED for evaluation. IV was started and patient was given IV fluid on the way. Patient denies any headache. Patient denies any chest pain or shortness of breath. Patient states that she has lower abdominal pain cramping pain. Patient denies any pain radiation. Patient denies any back pain. Patient denies any fever chills. Patient denies any focal weakness or numbness of extremity. Patient has history of gastroparesis, hypertension, CVA, migraine, COPD, chronic pain syndrome, myeloproliferative blood disease, atrial fibrillation, heart block, pancreatitis , hepatitis B, colitis, diverticulitis, metabolic encephalopathy. Patient was recently seen in emergency room at [facility] and was admitted to [facility]. Patient had MRI of the brain and EEG done at [facility] which was reported to be normal during that admission at [facility]. Patient's states that patient's blood pressure has been elevated recently. Patient was instructed by her physician to increase carvedilol from 6.25 mg twice a day to 12.5 mg twice a day since yesterday. PFSH Past Medical History Hx Anticoagulant Therapy: Yes (asa 81mg) Anemia: Yes (MYLOPROLIFERATIVE BLOOD DISORDER) Arthritis: No Asthma: Yes Atrial Fibrillation: Yes Autoimmune Disease: No Blood Disorders: No Anxiety: No Depression: No Heart Rhythm Problems: Yes (tachy) Cancer: No Cardiovascular Problems: Yes (htn on meds. hx of heart block) High Cholesterol: Yes Chemotherapy: No Chest Pain: No Congestive Heart Failure: No COPD: Yes (EMPHYSEMA) Cerebrovascular Accident: Yes Diabetes: No Diminished Hearing: No Endocrine: No Gastrointestinal Disorders: Yes GERD: Yes Glaucoma: No Genitourinary: No Headaches: No Hepatitis: Yes (HEP-B) Hiatal Hernia: Yes Hypertension: Yes Immune Disorder: No Kidney Stones: No Musculoskeletal: No Neurologic: No Psychiatric: No Respiratory: Yes (copd, oxygen at home prn) Migraines: Yes Myocardial Infarction: No Radiation Therapy: No Renal Failure: No Seizures: No Sickle Cell Disease: No Sleep Apnea: No Thyroid Disease: No Ulcer: No ?: Not Menopausal: Yes Tubal Ligation: Yes Past Surgical History Abdominal Surgery: Yes (NAPOLEON,HERNIA REPAIR X 3) AICD: No Cardiac Surgery: No Cholecystectomy: Yes Ear Surgery: No Endocrine Surgery: No Eye Surgery: No Genitourinary Surgery: Yes (BLADDER SUSPENSION) Gynecologic Surgery: Yes (LT BREAST LUMPECTOMY) Hysterectomy: Yes Insulin Pump: No Joint Replacement: No Neurologic Surgery: No Oral Surgery: No Pacemaker: No Thoracic Surgery: No Other Surgery: Yes Social History Alcohol Use: No Tobacco Use: Yes (3-4 DAILY) Substance Use: No Allergies-Medications (Allergen,Severity, Reaction): Coded Allergies: Bactrim (Verified Allergy, Severe, "VOMITING", 08/15/16) Inderal (Verified Allergy, Severe, "CAUSES ASTHMA ATTACK", 08/15/16) Indocin (Verified Allergy, Severe, "NAUSEA", 08/15/16) Penicillin (Verified Allergy, Severe, "HEART FAILURE", 08/15/16) Procardia (Verified Allergy, Severe, "RAPID HEART BEAT", 08/15/16) states does not have a allergy to this medication carlos Grullon 08/15/16 Reported Meds & Prescriptions Reported Meds & Active Scripts Active Pyridium (Phenazopyridine HCl) 100 Mg Tab 100 Mg PO Q8H PRN Zofran (Ondansetron HCl) 8 Mg Tab 8 Mg PO TID PRN Reported Bethanechol 25 Mg Tab 25 Mg PO 1/2 HOUR BEFORE MEAL Oxycodone (Oxycodone HCl) 15 Mg Tab 15 Mg PO BID PRN Benadryl Allergy (Diphenhydramine HCl) 25 Mg Tab 25 Mg PO Q4HR PRN Carvedilol 12.5 Mg Tab 12.5 Mg PO BID Creon (Pancrelipase) 3,000-9,500-15,000 Units Cap 1 Cap PO DAILY Soma (Carisoprodol) 350 Mg Tab 350 Mg PO BID PRN Temazepam 30 Mg Cap 30 Mg PO HS PRN Trazodone (Trazodone HCl) 50 Mg Tab 50 Mg PO HS Enalapril (Enalapril Maleate) 10 Mg Tab 10 Mg PO BID Treximet (Sumatriptan-Naproxen) 85-500 Mg Tab 1 Tab PO ONCE PRN May take a second dose after 2 hours if needed. Maximum 2 tabs in 24 hour period. Oxycontin (Oxycodone HCl) 40 Mg Tab 80 Mg PO Q8HR [IB Dixon] 1 PO BEFORE MEALS Omeprazole 40 Mg Cap 40 Mg PO DAILY Ventolin Hfa 18 GM Inh (Albuterol Sulfate) 90 Mcg/Act Aer 1 Puff INH Q4H PRN Advair Diskus Inh (Fluticasone-Salmeterol Inh) 100-50 Mcg/Blist Aer 1 Puff INH BID Rinse mouth after use. Levalbuterol Neb (Levalbuterol HCl) 0.63 Mg/3 Ml Neb 0.63 Mg INH QID Aspirin 81 Mg Tabdr 81 Mg PO DAILY Hydroxyurea 500 Mg Cap 500 Mg PO DAILY Review of Systems General / Constitutional: No: Fever Eyes: No: Visual changes HENT: No: Headaches Cardiovascular: No: Chest Pain or Discomfort Respiratory: No: Shortness of Breath Gastrointestinal: Positive: Abdominal Pain Genitourinary: No: Dysuria Musculoskeletal: No: Pain Skin: No Rash Neurologic: No: Weakness Psychiatric: No: Depression Endocrine: No: Polydipsia Hematologic/Lymphatic: No: Easy Bruising Physical Exam Narrative GENERAL: Well-nourished, well-developed patient. SKIN: Pale and diaphoretic HEAD: Normocephalic. EYES: No scleral icterus. No injection or drainage. NECK: Supple, trachea midline. No JVD or lymphadenopathy. CARDIOVASCULAR: Regular rate and rhythm without murmurs, gallops, or rubs. RESPIRATORY: Breath sounds equal bilaterally. No accessory muscle use. GASTROINTESTINAL: Abdomen soft, nondistended. Patient has mild to moderate tenderness on palpation lower abdomen. No rebound tenderness. No mass. MUSCULOSKELETAL: No cyanosis, or edema. BACK: Nontender without obvious deformity. No CVA tenderness. Neurologic exam: Patient's lethargic however answer questions appropriately. Patient moves all extremities well. No obvious focal neurological deficit. Data Data Last Documented VS Vital Signs Date Time Temp Pulse Resp B/P Pulse Ox O2 Delivery O2 Flow Rate FiO2 09/03/16 00:34 97.0 63 20 118/55 99 2 09/03/16 00:05 Room Air Orders Sodium Chlor 0.9% 1000 Ml Inj (Ns 1000 M (09/02/16 23:30) Sodium Chlor 0.9% 1000 Ml Inj (Ns 1000 M (09/02/16 23:30) Sodium Chlor 0.9% 1000 Ml Inj (Ns 1000 M (09/02/16 23:30) Lactic Acid Sepsis Protocol (09/02/16 23:23) Electrocardiogram (09/02/16 23:23) Complete Blood Count With Diff (09/02/16 23:23) Comprehensive Metabolic Panel (09/02/16 23:23) Creatine Kinase (Cpk) (09/02/16 23:23) Troponin I (09/02/16 23:23) B-Type Natriuretic Peptide (09/02/16 23:23) Prothrombin Time / Inr (Pt) (09/02/16 23:23) Act Partial Throm Time (Ptt) (09/02/16 23:23) Arterial Blood Gas (Abg) (09/02/16 23:23) Blood Culture (09/02/16 23:23) Lipase (09/02/16 23:23) Urinalysis - C+S If Indicated (09/02/16 23:23) Magnesium (Mg) (09/02/16 23:23) Thyroid Stimulating Hormone (09/02/16 23:23) Phosphorus (Po4) (09/02/16 23:23) Chest, Single Ap (09/02/16 23:23) Ct Brain W/O Iv Contrast(Rout) (09/02/16 23:23) Iv Access Insert/Monitor (09/02/16 23:23) Ecg Monitoring (09/02/16 23:23) Oximetry (09/02/16 23:23) Urinary Catheter Insert/Apply (09/02/16 23:23) Norepinephrine-Dextrose Drip (Levophed-D (09/02/16 23:30) Terbutaline Inj (Brethine Inj) (09/02/16 23:30) Norepinephrine Inj (Levophed Inj) (09/02/16 23:31) Vancomycin Inj (Vancomycin Inj) (09/02/16 23:45) Aztreonam Inj (Azactam Inj) (09/02/16 23:45) Urine Culture (09/02/16 23:50) Ct Abd/Pel W Iv Contrast(Rout) (09/03/16 ) Type And Screen (09/03/16 01:25) Sodium Chlor 0.9% 1000 Ml Inj (Ns 1000 M (09/03/16 01:25) Pantoprazole Inj (Protonix Inj) (09/03/16 01:30) Pantoprazole Inj (Protonix Inj) (09/03/16 01:30) Ns + Kcl 20 Meq Inj (Ns + Kcl 20 Meq Inj (09/03/16 01:45) Admit Order (Ed Use Only) (09/03/16 01:36) Consult Gastroenterology (09/03/16 ) Labs Laboratory Tests Test 09/02/16 09/02/16 09/03/16 23:45 23:50 00:04 White Blood Count 12.1 TH/MM3 Red Blood Count 2.72 MIL/MM3 Hemoglobin 9.9 GM/DL Hematocrit 29.5 % Mean Corpuscular Volume 108.6 FL Mean Corpuscular Hemoglobin 36.4 PG Mean Corpuscular Hemoglobin 33.5 % Concent Red Cell Distribution Width 13.3 % Platelet Count 147 TH/MM3 Mean Platelet Volume 10.5 FL Neutrophils (%) (Auto) 66.8 % Lymphocytes (%) (Auto) 27.2 % Monocytes (%) (Auto) 4.4 % Eosinophils (%) (Auto) 0.8 % Basophils (%) (Auto) 0.8 % Neutrophils # (Auto) 8.1 TH/MM3 Lymphocytes # (Auto) 3.3 TH/MM3 Monocytes # (Auto) 0.5 TH/MM3 Eosinophils # (Auto) 0.1 TH/MM3 Basophils # (Auto) 0.1 TH/MM3 CBC Comment DIFF FINAL Differential Comment Prothrombin Time 13.3 SEC Prothromb Time International 1.2 RATIO Ratio Activated Partial 29.6 SEC Thromboplast Time Sodium Level 150 MEQ/L Potassium Level 3.3 MEQ/L Chloride Level 119 MEQ/L Carbon Dioxide Level 22.3 MEQ/L Anion Gap 9 MEQ/L Blood Urea Nitrogen 7 MG/DL Creatinine 0.66 MG/DL Estimat Glomerular Filtration 89 ML/MIN Rate Random Glucose 92 MG/DL Lactic Acid Level 1.2 mmol/L Calcium Level 6.2 MG/DL Protein Corrected Calcium 7.6 MG/DL Phosphorus Level 2.9 MG/DL Magnesium Level 1.0 MG/DL Total Bilirubin 0.4 MG/DL Aspartate Amino Transf 18 U/L (AST/SGOT) Alanine Aminotransferase 8 U/L (ALT/SGPT) Alkaline Phosphatase 37 U/L Total Creatine Kinase 61 U/L Troponin I LESS THAN 0.02 NG/ML B-Type Natriuretic Peptide 29 PG/ML Total Protein 4.2 GM/DL Albumin 1.9 GM/DL Lipase 88 U/L Thyroid Stimulating Hormone 0.422 uIU/ML 3rd Gen Urine Color YELLOW Urine Turbidity HAZY Urine pH 8.5 Urine Specific [place] 1.011 Urine Protein 300 mg/dL Urine Glucose (UA) 70 mg/dL Urine Ketones NEG mg/dL Urine Occult Blood NEG Urine Nitrite NEG Urine Bilirubin NEG Urine Urobilinogen LESS THAN 2.0 MG/DL Urine Leukocyte Esterase NEG Urine RBC 7 /hpf Urine WBC 10 /hpf Urine Squamous Epithelial 3 /hpf Cells Urine Bacteria RARE /hpf Urine Mucus FEW /lpf Microscopic Urinalysis Comment CULTURE INDICATED Blood Gas Puncture Site RT RADIAL Blood Gas Patient Temperature 98.6 Blood Gas HCO3 20 mmol/L Blood Gas Base Excess -5.8 mmol/L Blood Gas Oxygen Saturation 89 % Arterial Blood pH 7.26 Arterial Blood Partial 46 mmHg Pressure CO2 Arterial Blood Partial 80 mmHG Pressure O2 Arterial Blood Oxygen Content 17.4 Vol % Arterial Blood 4.1 % Carboxyhemoglobin Arterial Blood Methemoglobin 0.8 % Blood Gas Hemoglobin 13.9 G/DL Oxygen Delivery Device NASAL CANNULA Blood Gas Liter Flow 2 L/M MDM Medical Decision Making Medical Screen Exam Complete: Yes Emergency Medical Condition: Yes Interpretation(s) Last Impressions Chest X-Ray 09/02/16 [id number] Signed Impressions: Service Date/Time: Friday, September 02, 2016 23:32 - CONCLUSION: Normal examination. Jaya Pearl MD 1:19 AM. CBC WBC 12.1. Hemoglobin 9.9 hematocrit 29.5. MCV 108.6. Normal differential. Sodium 150 potassium 3.3. Calcium protein corrected 7.6. Magnesium 1.0. Cardiac enzymes are normal. UA positive with WBC and RBC and bacteria. INR 1.2. Differential Diagnosis Differential diagnosis including sepsis, dehydration, electrolyte imbalance, appendicitis, cholecystitis, colitis, UTI, pyelonephritis, nephrolithiasis. Narrative Course 66-year-old female with abdominal pain, pale diaphoretic, hypotensive and hypothermia. Warm blankets applied. Right femoral vein central line insertion. Normal saline solution 3 L IV fluid given. Azactam 1 g IV. Vancomycin 1 g IV. 1:22 AM. Patient had a bowel movement in the ED and was bloody stool. Protonix bolus and drip given. Type and cross blood. IV fluid changed to normal saline solution with 20 KCl per liter at 1 25 cc an hour. Diagnosis Primary Impression: Sepsis Qualified Code: A41.9 - Sepsis, due to unspecified organism Additional Impressions: GI bleed Qualified Code: K92.2 - Gastrointestinal hemorrhage, unspecified gastrointestinal hemorrhage type UTI (urinary tract infection) Qualified Code: N30.00 - Acute cystitis without hematuria Colitis Admitting Information Admitting Physician Requests: Admit Cristi Avendaño MD Sep 02, 2016 23:45
[2016-09-02 23:55] VITALS: BP 111/66; PULSE 66
--- NOTE | 2016-09-02 23:56 | RADRPT ---
EXAM DATE/TIME: 09/02/2016 23:32 [facility] COMPARISON: CHEST SINGLE AP, August 15, 2016, 20:03. INDICATIONS : Chest pain. MEDICAL HISTORY : None. SURGICAL HISTORY : None. ENCOUNTER: Initial ACUITY: 1 day PAIN SCORE: 0/10 LOCATION: Bilateral chest FINDINGS: A single view of the chest demonstrates the lungs to be symmetrically aerated without evidence of mas s, infiltrate or effusion. The cardiomediastinal contours are unremarkable. Osseous structures are intact. CONCLUSION: Normal examination. Jaya Pearl MD on September 02, 2016 at 23:54 Board Certified Radiologist. This report was verified electronically.
[2016-09-03] VITALS (23 sets, daily range): BP systolic 107–208; BP diastolic 55–96; PULSE 63–120; RESP 20–25; TEMP 96.8–98.9; O2SAT 92–100
[2016-09-03 00:04] LABS: AUTOMATED NEUTROPHIL # 8.1 TH/MM3 (1.8-7.7); BASOPHIL # 0.1 TH/MM3 (0-0.2); BASOPHIL % 0.8 % (0.0-2.0); EOSINOPHIL # 0.1 TH/MM3 (0-0.4); EOSINOPHIL % 0.8 % (0.0-4.0); HEMATOCRIT 29.5 % (35.0-46.0); HEMO FLAGS DIFF FINAL; LYMPH % 27.2 % (9.0-44.0); LYMPHOCYTE # 3.3 TH/MM3 (1.0-4.8); MEAN CELL VOLUME 108.6 FL (80.0-100.0); MEAN CORPUSCULAR HEMOGLOBIN 36.4 PG (27.0-34.0); MEAN CORPUSCULAR HGB CONC 33.5 % (32.0-36.0); MONO % 4.4 % (0.0-8.0); NEUT % 66.8 % (16.0-70.0); PLATELET COUNT 147 TH/MM3 (150-450); RED BLOOD COUNT 2.72 MIL/MM3 (4.00-5.30); RED CELL DISTRIBUTION WIDTH 13.3 % (11.6-17.2); WHITE BLOOD COUNT 12.1 TH/MM3 (4.0-11.0)
[2016-09-03 00:11] LABS: BACTERIA, URINE RARE /hpf; BLOOD, URINE NEG (NEG); COMMENT (UR) CULTURE INDICATED; CULTURE IF INDICATED CULTURE INDICATED; GLUCOSE,URINE 70 mg/dL (NEG); KETONE, URINE NEG (NEG); MUCUS URINE FEW /lpf (OCC); NITRITE,URINE NEG (NEG); PH, URINE 8.5 (5.0-8.5); SQUAMOUS EPITHELIAL CELL URINE 3 /hpf (0-5); URINE COLOR YELLOW (YELLW/STRAW)
[2016-09-03 00:15] LABS: BLOOD GAS BASE EXCESS -5.8 mmol/L (-2-2); BLOOD GAS CARBOXYHEMOGLOBIN 4.1 % (0-4); BLOOD GAS HCO3 20 mmol/L (22-26); BLOOD GAS METHEMOGLOBIN 0.8 % (0-2); BLOOD GAS O2 HGB SATURATION 89 % (90-100); BLOOD GAS OXYGEN CONTENT 17.4 Vol % (12.0-20.0); BLOOD GAS PCO2 46 mmHg (38-42); BLOOD GAS PO2 80 mmHG (61-120); BLOOD GAS TOTAL HGB 13.9 G/DL (12.0-16.0); TEMP CORR TO 98.6
[2016-09-03 00:16] LABS: CRITICAL VALUE YES; DRAW SITE RT RADIAL; LITER FLOW 2 L/M; NUMBER OF ARTERIAL PUNCTURES 2; OXYGEN DEVICE NASAL CANNULA; STAT YES; ULNAR PULSE PRESENT
[2016-09-03 00:19] LABS: APTT (PATIENT) 29.6 SEC (24.3-30.1); INTERNATIONAL NORMALIZED RATIO 1.2 RATIO; PROTHROMBIN TIME - PATIENT 13.3 SEC (9.8-11.6)
[2016-09-03 00:37] LABS: ALKALINE PHOSPHATASE 37 U/L (45-117); ALT (GPT) 8 U/L (10-53); ANION GAP 9 MEQ/L (5-15); AST (GOT) 18 U/L (15-37); BICARBONATE 22.3 MEQ/L (21.0-32.0); BLOOD UREA NITROGEN 7 MG/DL (7-18); CALCIUM-PROTEIN CORRECTED 7.6 MG/DL (8.5-10.1); CHLORIDE 119 MEQ/L (98-107); CREATINE KINASE 61 U/L (26-192); GLOMERULAR FILTRATION RATE 89 ML/MIN (>89); POTASSIUM 3.3 MEQ/L (3.5-5.1); SODIUM (NA) 150 MEQ/L (136-145); TOTAL BILIRUBIN ADULT 0.4 MG/DL (0.2-1.0)
[2016-09-03] MEDS ORDERED: SODIUM CHLOR 0.9% 1000 ML INJ 1,000 ML IV SCH (01:25)
[2016-09-03] MEDS: PANTOPRAZOLE INJ 80 MG in SODIUM CHLORIDE 0.9% INJ 100 ML IV SCH ×2 (01:30→13:10)
[2016-09-03] MEDS ORDERED: PANTOPRAZOLE INJ 80 MG in SODIUM CHLORIDE 0.9% INJ 35 ML IV ONE (01:30)
[2016-09-03] MEDS: NS + KCL 20 MEQ INJ 1,000 ML IV SCH ×2 (01:45→10:39)
[2016-09-03] MEDS ORDERED: ACETAMINOPHEN 325 MG TAB PO PRN (01:45)
[2016-09-03] MEDS ORDERED: SODIUM CHLORIDE 0.9% FLUSH 10 ML FLUSH IVF PRN (01:45)
[2016-09-03] MEDS ORDERED: IOHEXOL 350 MG/ML 10 ML VIAL (for RAD DIAG) IV ONE (02:04)
--- NOTE | 2016-09-03 02:06 | RADRPT ---
EXAM DATE/TIME: 09/03/2016 01:56 [facility] COMPARISON: CT BRAIN W/O CONTRAST, June 04, 2016, 8:00. INDICATIONS : Altered mental status. RADIATION DOSE: 60.51 CTDIvol (mGy) MEDICAL HISTORY : Cardiovascular disease. Hypertension. Chronic obstructive pulmonary disease.GERD SURGICAL HISTORY : Cholecystectomy. Tubal ligation.Hernia ENCOUNTER: Initial ACUITY: 1 day PAIN SCALE: 0/10 LOCATION: cranial TECHNIQUE: Multiple contiguous axial images were obtained of the head. Using automated exposure control and adj ustment of the mA and/or kV according to patient size, radiation dose was kept as low as reasonably a chievable to obtain optimal diagnostic quality images. FINDINGS: There is marked central and cortical atrophy with dilatation of ventricular and sulcal spaces. There is no parenchymal hemorrhage, acute infarction or mass lesion identified. There are no extra-axial fluid collections appreciated. The posterior fossa is unremarkable with midline fourth ventricle. T he portion of the orbits and paranasal sinuses visualized are unremarkable. CONCLUSION: Normal examination. Jaya Pearl MD on September 03, 2016 at 2:04 Board Certified Radiologist. This report was verified electronically.
[2016-09-03] MEDS ORDERED: CARV12.52 PO (02:09)
[2016-09-03] MEDS ORDERED: BETH25TA2 PO (02:09)
[2016-09-03] MEDS ORDERED: OXYC15TA PO (02:09)
[2016-09-03] MEDS ORDERED: BENA25TA3 PO (02:09)
[2016-09-03 02:11] LABS: HEMATOCRIT 42.4 % (35.0-46.0); REVIEW FLAG FINAL
--- NOTE | 2016-09-03 02:27 | RADRPT ---
EXAM DATE/TIME: 09/03/2016 02:00 [facility] COMPARISON: CT ABDOMEN & PELVIS W CONTRAST, August 15, 2016, 22:50. INDICATIONS : Low abdomen pain. IV CONTRAST: 95 cc Omnipaque 350 (iohexol) IV ORAL CONTRAST: No oral contrast ingested. RADIATION DOSE: 9.46 CTDIvol (mGy) MEDICAL HISTORY : Cardiovascular disease. Hypertension. Chronic obstructive pulmonary disease.GERD SURGICAL HISTORY : Cholecystectomy. Hernia ENCOUNTER: Initial ACUITY: 1 day PAIN SCALE: 5/10 LOCATION: low abdomen TECHNIQUE: Volumetric scanning of the abdomen and pelvis was performed. Using automated exposure control and ad justment of the mA and/or kV according to patient size, radiation dose was kept as low as reasonably achievable to obtain optimal diagnostic quality images. FINDINGS: LOWER LUNGS: The visualized lower lungs are clear. LIVER: There is moderate fluid around the liver, increased since July . Homogeneous density without lesion . There is no dilation of the biliary tree. Numerous clips in the gallbladder fossa. SPLEEN: Normal size without lesion. Some fluid surrounding the spleen PANCREAS: The pancreas is overall lower density than it was in July correlate for pancreatitis KIDNEYS: Normal in size and shape. There is no mass, stone or hydronephrosis. ADRENAL GLANDS: Within normal limits. VASCULAR: Severe atherosclerotic disease. The left common iliac artery may be thrombosed, chronic BOWEL/MESENTERY: Marked wall thickening and inflammatory stranding around the descending and sigmoid colons. ABDOMINAL WALL: Within normal limits. RETROPERITONEUM: There is no lymphadenopathy. BLADDER: No wall thickening or mass. Free fluid in the pelvis REPRODUCTIVE: Within normal limits. INGUINAL: There is no lymphadenopathy or hernia. MUSCULOSKELETAL: Eighth and ninth rib fractures on the left are fractured CONCLUSION: Long segment colitis involving the descending and sigmoid colon. Low density throughout the head of the pancreas increased since July possible pancreatitis. Free fluid around the liver, spleen and wi thin the pelvis of uncertain etiology. Jaya Pearl MD on September 03, 2016 at 2:17 Board Certified Radiologist. This report was verified electronically.
[2016-09-03] MEDS: SODIUM CHLOR 0.9% 1000 ML INJ 1,000 ML IV SCH ×2 (02:52→14:47)
[2016-09-03] MEDS: PANTOPRAZOLE SODIUM 40 MG VIAL IV SCH ×2 (03:00→15:24)
[2016-09-03] MEDS ORDERED: PHENAZOPYRIDINE HCL 100 MG TAB PO PRN (03:00)
[2016-09-03] MEDS ORDERED: ONDANSETRON HCL 4 MG/2 ML VIAL IV PRN (03:00)
[2016-09-03] MEDS ORDERED: METOCLOPRAMIDE HCL 10 MG/2 ML VIAL IV PRN (03:00)
[2016-09-03] MEDS ORDERED: CHLORHEXIDINE GLUCONATE 2 % 1 PACK (2 CLOTHS) TOP PRN (03:00)
[2016-09-03] MEDS ORDERED: MISCELLANEOUS NURSING INFORMATION XX SCH (03:00)
--- NOTE | 2016-09-03 03:00 | HHI.HP ---
HPI Service Critical Care Medicine Primary Care Physician Mj Cifuentes, DO Admission Diagnosis sepsis. GI bleed. UTI. Diagnosis: Travel History International Travel<30 Days: No Contact w/Intl Traveler <30 Da: No Traveled to Known Affected Are: No History of Present Illness 66-year-old female with history of gastroparesis, hypertension, CVA, migraine, COPD, chronic pain syndrome, myeloproliferative blood disease, atrial fibrillation, heart block, pancreatitis, hepatitis B, colitis, diverticulitis, metabolic encephalopathy was brought in by EMS from home for altered mental status and hypotension. Patient has history of chronic recurrent abdominal pain. Patient complains of recent constipation and was given Fleet enema this evening. Shortly after patient became pale and diaphoretic and lethargic subsequently. EMS was called. Patient's systolic blood pressure was found in the 60s. Patient was transported to ED for evaluation. Patient states that she has lower abdominal pain cramping pain. Patient denies any pain radiation. Patient denies any back pain. Patient denies any fever chills. Patient's states that patient's blood pressure has been elevated recently. Patient was instructed by her physician to increase carvedilol from 6.25 mg twice a day to 12.5 mg twice a day since yesterday. Review of Systems Constitutional: COMPLAINS OF: Diaphoretic episodes, DENIES: Fatigue, Fever, Weight gain, Weight loss, Chills, Dizziness, Change in appetite, Night Sweats Endocrine: DENIES: Abnorml menstrual pattern, Heat/cold intolerance, Polydipsia , Polyuria, Polyphagia Eyes: COMPLAINS OF: Blurred vision, DENIES: Diplopia, Eye inflammation, Eye pain, Vision loss, Photosensitivity, Double Vision Ears, nose, mouth, throat: DENIES: Tinnitus, Hearing loss, Vertigo, Nasal discharge, Oral lesions, Throat pain, Hoarseness, Ear Pain, Running Nose, Epistaxis, Sinus Pain, Toothache, Odynophagia Respiratory: DENIES: Apneas, Cough, Snoring, Wheezing, Hemoptysis, Sputum production, Shortness of breath Cardiovascular: DENIES: Chest pain, Palpitations, Syncope, Dyspnea on Exertion , PND, Lower Extremity Edema, Orthopnea, Claudication Gastrointestinal: COMPLAINS OF: Abdominal pain, Constipation, DENIES: Black stools, Bloody stools, Diarrhea, Nausea, Vomiting, Difficulty Swallowing, Anorexia Genitourinary: DENIES: Abnormal vaginal bleeding, Dysmenorrhea, Dyspareunia, Sexual dysfunction, Urinary frequency, Urinary incontinence, Urgency, Hematuria , Dysuria, Nocturia, Vaginal discharge Musculoskeletal: DENIES: Joint pain, Muscle aches, Stiffness, Joint Swelling, Back pain, Neck pain Integumentary: DENIES: Abnormal pigmentation, Pruritus, Rash, Nail changes, Breast masses, Breast skin changes, Nipple discharge Hematologic/lymphatic: DENIES: Bruising, Lymphadenopathy Past Family Social History Allergies: Coded Allergies: Bactrim (Verified Allergy, Severe, "VOMITING", 08/15/16) Inderal (Verified Allergy, Severe, "CAUSES ASTHMA ATTACK", 08/15/16) Indocin (Verified Allergy, Severe, "NAUSEA", 08/15/16) Penicillin (Verified Allergy, Severe, "HEART FAILURE", 08/15/16) Procardia (Verified Allergy, Severe, "RAPID HEART BEAT", 08/15/16) states does not have a allergy to this medication carlos Grullon 08/15/16 Past Medical History Gastroparesis - sees Dr. Arevalo as an outpatient Atrial fibrillation Hypertension COPD - on home oxygen PRN Irritable bowel syndrome Nephrolithiasis Urinary tract infection Cervicalgia Depression Anxiety Myeloproliferative disorder Past Surgical History Cystoscopy and double-J stent placement of left ureter 03/26/[address] English Cystoscopy, lithotripsy with stone extraction, double J stent change 04/22/2016 - stent was removed 05/05/2016 Cholecystectomy 1978 Inguinal hernia 1994 and 1997 Cervical fusion 1986, 1998 Hysterectomy 1994 Bladder sling 2002 Reported Medications Reported Meds & Active Scripts Active Pyridium (Phenazopyridine HCl) 100 Mg Tab 100 Mg PO Q8H PRN Zofran (Ondansetron HCl) 8 Mg Tab 8 Mg PO TID PRN Reported Bethanechol 25 Mg Tab 25 Mg PO 1/2 HOUR BEFORE MEAL Oxycodone (Oxycodone HCl) 15 Mg Tab 15 Mg PO BID PRN Benadryl Allergy (Diphenhydramine HCl) 25 Mg Tab 25 Mg PO Q4HR PRN Carvedilol 12.5 Mg Tab 12.5 Mg PO BID Creon (Pancrelipase) 3,000-9,500-15,000 Units Cap 1 Cap PO DAILY Soma (Carisoprodol) 350 Mg Tab 350 Mg PO BID PRN Temazepam 30 Mg Cap 30 Mg PO HS PRN Trazodone (Trazodone HCl) 50 Mg Tab 50 Mg PO HS Enalapril (Enalapril Maleate) 10 Mg Tab 10 Mg PO BID Treximet (Sumatriptan-Naproxen) 85-500 Mg Tab 1 Tab PO ONCE PRN May take a second dose after 2 hours if needed. Maximum 2 tabs in 24 hour period. Oxycontin (Oxycodone HCl) 40 Mg Tab 80 Mg PO Q8HR [IB Dixon] 1 PO BEFORE MEALS Omeprazole 40 Mg Cap 40 Mg PO DAILY Ventolin Hfa 18 GM Inh (Albuterol Sulfate) 90 Mcg/Act Aer 1 Puff INH Q4H PRN Advair Diskus Inh (Fluticasone-Salmeterol Inh) 100-50 Mcg/Blist Aer 1 Puff INH BID Rinse mouth after use. Levalbuterol Neb (Levalbuterol HCl) 0.63 Mg/3 Ml Neb 0.63 Mg INH QID Aspirin 81 Mg Tabdr 81 Mg PO DAILY Hydroxyurea 500 Mg Cap 500 Mg PO DAILY Active Ordered Medications Current Medications Medications (Trade) Dose Ordered Sig/Diane Route PRN Reason Start Time Stop Time Status Last Admin Dose Admin Norepinephrine Bitartrate (Levophed-Dextrose Drip) 250 ml @ 0 mls/hr TITRATE IV 09/02/16 23:30 Terbutaline Sulfate 1 mg 1 mg UNSCH PRN SQ For Extravasation 09/02/16 23:30 Pantoprazole Sodium 80 mg/ Sodium Chloride 100 ml @ 10 mls/hr Q10H IV 09/03/16 01:30 09/03/16 01:30 Potassium Chloride/Sodium Chloride (NS + KCl 20 Meq Inj) 1,000 ml @ 125 mls/hr Q8H IV 09/03/16 01:45 09/03/16 01:45 Ondansetron HCl (Zofran Inj) 4 mg Q6H PRN IV NAUSEA OR VOMITING 09/03/16 01:45 09/03/16 03:04 Acetaminophen (Tylenol) 650 mg Q4H PRN PO Temp>101F, Headache 09/03/16 01:45 Sodium Chloride (NS Flush) 2 ml BID IV FLUSH 09/03/16 09:00 Sodium Chloride 2 ml 2 ml UNSCH PRN IVF FLUSH AFTER USING IV ACCESS 09/03/16 01:45 Sodium Chloride (NS 1000 ml Inj) 1,000 ml @ 84 mls/hr [id number] IV 09/03/16 02:52 Acetaminophen (Tylenol) 650 mg Q6H PRN PO PAIN 1-10 AND/OR FEVER >101F 09/03/16 03:00 Morphine Sulfate (Morphine Inj) 2 mg Q2H PRN IV PAIN SCALE 6 TO 10 09/03/16 03:00 09/03/16 04:17 Pantoprazole Sodium (Protonix Inj) 40 mg Q12H IV 09/03/16 03:00 Lorazepam (Ativan Inj) 2 mg Q4H PRN IV Agitation/Sedation 09/03/16 03:00 Ondansetron HCl (Zofran Inj) 4 mg Q6H PRN IV NAUSEA OR VOMITING 09/03/16 03:00 Metoclopramide HCl (Reglan Inj) 10 mg Q6H PRN IV NAUSEA OR VOMITING 09/03/16 03:00 Miscellaneous Information 1 [id number] XX 09/03/16 03:00 Chlorhexidine Gluconate (Chlorhexidine 2% Cloth) 3 pack Taper DAILY@04 TOP 09/03/16 04:00 08/30/17 03:59 Chlorhexidine Gluconate (Chlorhexidine 2% Cloth) 3 pack UNSCH PRN TOP HYGIENIC CARE 09/03/16 03:00 Albuterol Sulfate (Ventolin Hfa Inh) 1 puff Q4H PRN INH SHORTNESS OF BREATH 09/03/16 03:00 Hydroxyurea (Hydrea) 500 mg DAILY PO 09/03/16 09:00 Phenazopyridine HCl (Pyridium) 100 mg Q8H PRN PO DYSURIA 09/03/16 03:00 Temazepam (Restoril) 30 mg HS PRN PO INSOMNIA 09/03/16 03:00 Trazodone HCl (Desyrel) 50 mg HS PO 09/03/16 21:00 Budesonide/ Formoterol Fumarate (Symbicort 80-4.5 Mcg Inh) 2 puff BID INH 09/03/16 09:00 Non-Formulary Medication 0.63 mg QID INH BTX 09/03/16 09:00 Amylase/Lipase/ Protease (Creon 6-19-30) 1 cap DAILY PO Digestive Aid 09/03/16 09:00 Family History Noncontributory Social History Negative 3 Physical Exam Vital Signs Vital Signs Date Time Temp Pulse Resp B/P Pulse Ox O2 Delivery O2 Flow Rate FiO2 09/03/16 02:49 96.8 95 25 177/91 99 Nasal Cannula 2 09/03/16 01:47 97.2 75 22 112/67 99 2 09/03/16 00:34 97.0 63 20 118/55 99 2 09/03/16 00:05 65 22 108/58 99 Room Air 2 09/02/16 23:55 66 111/66 09/02/16 23:42 64 21 104/49 100 2 09/02/16 23:42 96.6 09/02/16 23:21 100 Nasal Cannula 2 09/02/16 23:19 63 17 79/45 100 Nasal Cannula 2 09/02/16 23:18 96.4 62 21 79/45 100 Nasal Cannula 2 09/02/16 23:07 63 20 91/43 99 Physical Exam GENERAL: Well-nourished, well-developed patient. SKIN: Warm and dry. HEAD: Normocephalic. EYES: No scleral icterus. No injection or drainage. NECK: Supple, trachea midline. No JVD or lymphadenopathy. CARDIOVASCULAR: Regular rate and rhythm without murmurs, gallops, or rubs. RESPIRATORY: Breath sounds equal bilaterally. No accessory muscle use. GASTROINTESTINAL: Abdomen soft, non-tender, nondistended. MUSCULOSKELETAL: No cyanosis, or edema. BACK: Nontender without obvious deformity. No CVA tenderness. EXTREMITIES: No clubbing cyanosis or edema Laboratory Laboratory Tests Test 09/02/16 09/02/16 09/03/16 09/03/16 23:45 23:50 00:04 01:40 White Blood Count 12.1 Red Blood Count 2.72 Hemoglobin 9.9 14.0 Hematocrit 29.5 42.4 Mean Corpuscular Volume 108.6 Mean Corpuscular Hemoglobin 36.4 Mean Corpuscular Hemoglobin 33.5 Concent Red Cell Distribution Width 13.3 Platelet Count 147 Mean Platelet Volume 10.5 Neutrophils (%) (Auto) 66.8 Lymphocytes (%) (Auto) 27.2 Monocytes (%) (Auto) 4.4 Eosinophils (%) (Auto) 0.8 Basophils (%) (Auto) 0.8 Neutrophils # (Auto) 8.1 Lymphocytes # (Auto) 3.3 Monocytes # (Auto) 0.5 Eosinophils # (Auto) 0.1 Basophils # (Auto) 0.1 CBC Comment DIFF FINAL Differential Comment Prothrombin Time 13.3 Prothromb Time International 1.2 Ratio Activated Partial 29.6 Thromboplast Time Sodium Level 150 Potassium Level 3.3 Chloride Level 119 Carbon Dioxide Level 22.3 Anion Gap 9 Blood Urea Nitrogen 7 Creatinine 0.66 Estimat Glomerular Filtration 89 Rate Random Glucose 92 Lactic Acid Level 1.2 Calcium Level 6.2 Protein Corrected Calcium 7.6 Phosphorus Level 2.9 Magnesium Level 1.0 Total Bilirubin 0.4 Aspartate Amino Transf 18 (AST/SGOT) Alanine Aminotransferase 8 (ALT/SGPT) Alkaline Phosphatase 37 Total Creatine Kinase 61 Troponin I LESS THAN 0.02 B-Type Natriuretic Peptide 29 Total Protein 4.2 Albumin 1.9 Lipase 88 Thyroid Stimulating Hormone 0.422 3rd Gen Urine Color YELLOW Urine Turbidity HAZY Urine pH 8.5 Urine Specific [place] 1.011 Urine Protein 300 Urine Glucose (UA) 70 Urine Ketones NEG Urine Occult Blood NEG Urine Nitrite NEG Urine Bilirubin NEG Urine Urobilinogen LESS THAN 2.0 Urine Leukocyte Esterase NEG Urine RBC 7 Urine WBC 10 Urine Squamous Epithelial 3 Cells Urine Bacteria RARE Urine Mucus FEW Microscopic Urinalysis Comment CULTURE INDICATED Blood Gas Puncture Site RT RADIAL Blood Gas Patient Temperature 98.6 Blood Gas HCO3 20 Blood Gas Base Excess -5.8 Blood Gas Oxygen Saturation 89 Arterial Blood pH 7.26 Arterial Blood Partial 46 Pressure CO2 Arterial Blood Partial 80 Pressure O2 Arterial Blood Oxygen Content 17.4 Arterial Blood 4.1 Carboxyhemoglobin Arterial Blood Methemoglobin 0.8 Blood Gas Hemoglobin 13.9 Oxygen Delivery Device NASAL CANNULA Blood Gas Liter Flow 2 Blood Type O POSITIVE Antibody Screen NEGATIVE Date/Time Procedure Status Source Growth 09/02/16 23:50 Urine Culture Received Urine Clean Catch Pending 09/02/16 23:45 Aerobic Blood Culture Received Blood Peripheral Pending 09/02/16 23:45 Anaerobic Blood Culture Received Blood Peripheral Pending Result Diagram: 09/03/16 0140 09/02/16 2345 Imaging Last 24 hours Impressions Abdomen/Pelvis CT 09/03/16 0000 Signed Impressions: Service Date/Time: Saturday, September 03, 2016 02:00 - CONCLUSION: Long segment colitis involving the descending and sigmoid colon. Low density throughout the head of the pancreas increased since July possible pancreatitis. Free fluid around the liver, spleen and within the pelvis of uncertain etiology. Jaya Pearl MD Head CT 09/02/162322 Signed Impressions: Service Date/Time: Saturday, September 03, 2016 01:56 - CONCLUSION: Normal examination. Jaya Pearl MD Chest X-Ray 09/02/162322 Signed Impressions: Service Date/Time: Friday, September 02, 2016 23:32 - CONCLUSION: Normal examination. Jaya Pearl MD Assessment and Plan Problem List: (1) Chronic narcotic dependence ICD Code: F11.20 Status: Acute (2) Weakness generalized ICD Code: R53.1 Status: Acute (3) Diverticulitis ICD Code: K57.92 Status: Acute Assessment and Plan Abdominal pain - Colitis - IV antibiotic Levaquin and Flagyl - Nothing by mouth - IV fluid hydration - GI consult Hypertension - Dehydration - Medication effect - Hold antihypertensive - Aggressive IV fluid resuscitation Bright red blood per rectum - Protonix drip - Further per GI Depression - Trazodone Critical Care: The total critical care time was 35 minutes. Time to perform other separately billable procedures was not included in the critical care time. Julius Collazo MD Sep 03, 2016 03:00
[2016-09-03] MEDS: ONDANSETRON HCL 4 MG/2 ML VIAL IV PRN ×2 (03:04→08:52)
[2016-09-03 03:12] LABS: HEMATOCRIT 42.5 % (35.0-46.0)
[2016-09-03] MEDS: CHLORHEXIDINE GLUCONATE 2 % 1 PACK (2 CLOTHS) TOP SCH (04:00)
[2016-09-03] MEDS: MORPHINE SULFATE 4 MG/ML INJ IV PRN ×5 (04:17→20:40)
[2016-09-03] MEDS ORDERED: MORPHINE SULFATE 4 MG/ML INJ IV PUSH ONE (06:00)
[2016-09-03] MEDS: LEVOFLOXACIN 750 MG PREMIX INJ 150 ML IV SCH (06:03)
[2016-09-03] MEDS: metroNIDAZOLE 500 MG INJ 100 ML IV SCH ×3 (07:12→20:40)
[2016-09-03] MEDS: BUDESONIDE-FORMOTEROL 80/4.5 MCG INHALER INH SCH ×2 (08:48→20:52)
[2016-09-03] MEDS: HYDROXYUREA 500 MG CAP PO SCH (08:49)
[2016-09-03] MEDS: LIPASE/PROTEASE/AMYLASE (6,000/19,000/30,000) CAP PO SCH (08:49)
[2016-09-03] MEDS: SODIUM CHLORIDE 0.9% FLUSH 10 ML FLUSH IV FLUSH SCH ×2 (08:53→20:52)
[2016-09-03] MEDS ORDERED: LEVALBUTEROL 0.63 MG INH SCH (09:00)
[2016-09-03 09:12] LABS: REVIEW FLAG FINAL
[2016-09-03] MEDS: ACETAMINOPHEN 325 MG TAB PO PRN (11:20)
[2016-09-03] MEDS: RESP: ALBUTEROL 1.25 MG/3 ML NEB (SCH) NEB ×3 (12:05→20:13)
--- NOTE | 2016-09-03 12:23 | MB ---
cc: SHIRA RING DATE OF CONSULTATION 09/03/2016 DATE OF 1950 REASON FOR GI CONSULTATION Evaluation of abdominal pain, slightly heme-positive stools. HISTORY OF PRESENT ILLNESS This is a 66-year-old female with a history of complex GI medical problems. Her history includes gastroparesis, hypertension, migraine headaches, CVA, COPD, chronic pain syndrome, myeloproliferative disease, atrial fibrillation, chronic pancreatitis, hepatitis B, diverticulitis, history of metabolic encephalopathy. The patient has been evaluated endoscopically. She has a history of colon polyps. She had colonoscopy earlier this year. She had an upper endoscopy last year which revealed mild gastritis. The patient has a history of chronic constipation, recurrent abdominal pain and idiopathic type pancreatitis. She recently had imaging studies and she was found to have a slightly dilated common bile duct, slightly larger than on previous studies and it was anticipated the patient would have an endoscopic ultrasound for further evaluation as an outpatient. She has been recently seen in the office. The patient apparently became pale and lethargic at home. EMS was contacted. The patient was brought urgently to the hospital emergency room. Blood pressure was low 70/palp and the patient was started on immediate treatment with IV fluids, and multiple antibiotics for possible sepsis syndrome. A CT scan had been obtained and this revealed long segment colitis involving the descending and sigmoid colon. There was some low signal density throughout the head of the pancreas consistent with possible pancreatitis. There was some free fluid noted around the liver and spleen of uncertain etiology. Her liver enzymes remain normal. Lipase was also normal. White count was 12.1. Initially, hemoglobin was 9.9, but recheck it was 14 and 13.9 respectively. Stools were trace positive. She has not had any overt bleeding. She complains of bilateral rib cage and chest pain. In addition, she also has been complaining of diffuse abdominal discomfort and cramping. We were asked to evaluate her further. PAST HISTORY As mentioned above quite extensive. 1. She has also had a previous cholecystectomy. 2. Hysterectomy 3. Bladder sling 4. Inguinal hernia repair 5. Cervical fusion MEDICATIONS Include: 1. Zofran 2. Bethanechol 3. Pyridium 4. Oxycodone 5. Benadryl 6. Carvedilol 7. Creon 8. Temazepam 9. Trazodone 10. Enalapril 11. OxyContin 12. Omeprazole 13. Ventolin 14. Advair 15. Hydroxyurea 16. Currently the patient is has been receiving morphine, Flagyl and Levaquin. REVIEW OF SYSTEMS The 10-point review of system was stated above. FAMILY HISTORY Noncontributory for GI problems. SOCIAL HISTORY Her states she has recently started smoking again. She denies any alcohol use. EXAMINATION This is a chronically ill appearing female older than her state age complaining of upper ribcage pain. VITAL SIGNS: Her current vital signs: Pulse is 115, heart rate 134/86. Oxygen saturation 98%. She is afebrile. HEENT: Exam normocephalic. Sclerae anicteric. Oral mucosa dry. Poor dentition is noted. NECK: Supple. CARDIAC: S1, S2, slightly irregular. CHEST: Occasional rhonchi bilaterally. There is also some chest wall tenderness bilaterally. ABDOMEN: Soft, nondistended. Bowel sounds are present. The patient does grimace occasionally with palpation diffusely. I do not detect rebound tenderness. EXTREMITIES: Without peripheral edema or cyanosis. IMPRESSION A 66-year-old female with multiple medical problems outlined above who presents with hypotension, bilateral ribcage chest discomfort, abdominal discomfort, CT scan findings noted with the possibility of pancreatitis, although her lipase is in the normal range. Liver enzymes were in a normal range as well. Incidentally, the patient had a large bowel movement according to her after she arrived here in the emergency room. She had been constipated. CT scan also suggests possible colitis which could be ischemic in nature. PLAN At this point, I would suggest IV hydration. Continue her broad-spectrum antibiotics. I would monitor her closely. She does not appear to have any active GI bleeding at this time. Her last colonoscopy was earlier this year. She did have colon polyps removed. These were benign. If she is stable and improved, we could consider endoscopic ultrasound that was planned as an outpatient as well. The patient may need a CT scan of the chest and chest wall. I will leave that up to the admitting physician. I would continue pain control as well if tolerable. Continue IV Protonix for prophylaxis. Thank you kindly for this consult. We will follow the patient with you. MD AKANKSHA Varma/MOHAN /11:17 AM /12:07 PM
[2016-09-03 13:16] LABS: AUTOMATED NEUTROPHIL # 15.8 TH/MM3 (1.8-7.7); BASOPHIL % 0.1 % (0.0-2.0); LYMPH % 10.7 % (9.0-44.0); MEAN CELL VOLUME 107.6 FL (80.0-100.0); MEAN CORPUSCULAR HEMOGLOBIN 35.3 PG (27.0-34.0); MEAN CORPUSCULAR HGB CONC 32.8 % (32.0-36.0); MONO % 5.9 % (0.0-8.0); NEUT % 83.3 % (16.0-70.0); PLATELET COUNT 159 TH/MM3 (150-450); RED BLOOD COUNT 3.44 MIL/MM3 (4.00-5.30); RED CELL DISTRIBUTION WIDTH 13.2 % (11.6-17.2); WHITE BLOOD COUNT 18.9 TH/MM3 (4.0-11.0)
[2016-09-03 13:20] LABS: HEMO FLAGS AUTO DIFF
[2016-09-03 13:50] LABS: ALKALINE PHOSPHATASE 50 U/L (45-117); ALT (GPT) 10 U/L (10-53); ANION GAP 9 MEQ/L (5-15); AST (GOT) 19 U/L (15-37); BICARBONATE 21.1 MEQ/L (21.0-32.0); BLOOD UREA NITROGEN 11 MG/DL (7-18); CHLORIDE 115 MEQ/L (98-107); GLOMERULAR FILTRATION RATE 66 ML/MIN (>89); MAGNESIUM 1.2 MG/DL (1.5-2.5); POTASSIUM 4.5 MEQ/L (3.5-5.1); SODIUM (NA) 145 MEQ/L (136-145); TOTAL BILIRUBIN ADULT 0.6 MG/DL (0.2-1.0)
[2016-09-03 13:52] LABS: BANDS 13 % (0-6); NEUTROPHIL # MANUAL DIFF 17.8 TH/MM3 (1.8-7.7); POLYS (SEG NEUTROPHILS) 81 % (16-70); WBC DIFF SAMPLE 100
[2016-09-03 13:53] LABS: PLATELET ESTIMATE SMEAR NORMAL (NORMAL); PLATELET MORPHOLOGY NORMAL (NORMAL); SCAN/DIFF FINAL DIFF MANUAL
[2016-09-03] MEDS ORDERED: POTASSIUM PHOSPHATE MONOBASIC 500 MG TAB PO PRN (14:00)
[2016-09-03] MEDS ORDERED: POTASSIUM PHOSPHATE MONOBASIC 500 MG TAB PO/TUBE PRN (14:00)
[2016-09-03] MEDS ORDERED: MAGNESIUM OXIDE 400 MG TAB PO PRN (14:00)
[2016-09-03] MEDS ORDERED: POTASSIUM PHOSPHATE INJ 30 MMOL in SODIUM CHLOR 0.9% 250 ML INJ 250 ML IV PRN (14:00)
[2016-09-03] MEDS ORDERED: MAGNESIUM SULFATE INJ 2 GM in SODIUM CHLORIDE 0.9% INJ 96 ML IV PRN (14:00)
[2016-09-03] MEDS ORDERED: POTASSIUM CHLOR 40 MEQ PREMIX 100 ML IV PRN ×2 (14:00)
[2016-09-03] MEDS ORDERED: POTASSIUM CHLORIDE 25 MEQ EFFERVESCENT TAB PO PRN (14:00)
[2016-09-03] MEDS ORDERED: MAGNESIUM SULFATE INJ 4 GM in SODIUM CHLORIDE 0.9% INJ 92 ML IV PRN (14:00)
[2016-09-03] MEDS ORDERED: SODIUM PHOSPHATE INJ 30 MMOL in SODIUM CHLOR 0.9% 250 ML INJ 240 ML IV PRN (14:00)
[2016-09-03] MEDS ORDERED: POTASSIUM CHLOR 20 MEQ PREMIX 100 ML IV PRN ×2 (14:00)
[2016-09-03] MEDS: LORazepam 2 MG/ML VIAL IV PRN ×2 (15:26→20:39)
[2016-09-03] MEDS: DEXT 5%-NACL 0.9% 1000 ML INJ 1,000 ML IV SCH (15:38)
[2016-09-03] MEDS: traZODone HCL 50 MG TAB PO SCH (20:39)
[2016-09-03] MEDS: TEMAZEPAM 15 MG CAP PO PRN (20:40)
[2016-09-03 21:23] LABS: HEMATOCRIT 30.9 % (35.0-46.0); REVIEW FLAG FINAL
--- NOTE | 2016-09-03 22:32 | EKG ---
Date Performed: 09/02/2016 Time Performed: 23:09:17 PTAGE: 66 years EKG: Sinus rhythm WITH FIRST DEGREE AV BLOCK POSSIBLE RIGHT VENTRICULAR CONDUCTION DELAY UNDULATING BASELINE ST DEVIAT ION AND MODERATE T-WAVE ABNORMALITY, CONSIDER LATERAL ISCHEMIA ABNORMAL ECG INTERPRETATION BASED ON A DEFAULT AGE OF 40 YEARS PREVIOUS TRACING : 08/15/2016 19.35 Compared to the previous tracing, lateral ST/T wave c hanges are new DOCTOR: Jose Herrera Interpretating Date/Time 09/03/2016 22:30:50
[2016-09-04] VITALS (15 sets, daily range): BP systolic 122–195; BP diastolic 59–95; PULSE 84–123; RESP 21–29; TEMP 98.1–98.7; O2SAT 92–100
[2016-09-04] MEDS: LORazepam 2 MG/ML VIAL IV PRN ×4 (01:12→23:30)
[2016-09-04] MEDS: MORPHINE SULFATE 4 MG/ML INJ IV PRN ×5 (01:13→17:56)
[2016-09-04] MEDS: PANTOPRAZOLE SODIUM 40 MG VIAL IV SCH ×2 (01:13→14:11)
[2016-09-04] MEDS: DEXT 5%-NACL 0.9% 1000 ML INJ 1,000 ML IV SCH ×2 (01:13→14:12)
[2016-09-04] MEDS: CHLORHEXIDINE GLUCONATE 2 % 1 PACK (2 CLOTHS) TOP SCH (04:00)
[2016-09-04] MEDS: metroNIDAZOLE 500 MG INJ 100 ML IV SCH ×3 (05:32→21:53)
[2016-09-04] MEDS: LEVOFLOXACIN 750 MG PREMIX INJ 150 ML IV SCH (05:32)
[2016-09-04 06:01] LABS: AUTOMATED NEUTROPHIL # 9.3 TH/MM3 (1.8-7.7); BASOPHIL % 0.1 % (0.0-2.0); EOSINOPHIL % 0.2 % (0.0-4.0); HEMATOCRIT 30.1 % (35.0-46.0); HEMO FLAGS DIFF FINAL; LYMPH % 22.3 % (9.0-44.0); LYMPHOCYTE # 2.9 TH/MM3 (1.0-4.8); MEAN CELL VOLUME 106.8 FL (80.0-100.0); MEAN CORPUSCULAR HEMOGLOBIN 36.8 PG (27.0-34.0); MEAN CORPUSCULAR HGB CONC 34.4 % (32.0-36.0); MONO % 6.6 % (0.0-8.0); NEUT % 70.8 % (16.0-70.0); PLATELET COUNT 114 TH/MM3 (150-450); RED BLOOD COUNT 2.82 MIL/MM3 (4.00-5.30); RED CELL DISTRIBUTION WIDTH 13.3 % (11.6-17.2); WHITE BLOOD COUNT 13.1 TH/MM3 (4.0-11.0)
[2016-09-04 06:19] LABS: ALKALINE PHOSPHATASE 42 U/L (45-117); ALT (GPT) 8 U/L (10-53); ANION GAP 8 MEQ/L (5-15); AST (GOT) 14 U/L (15-37); BICARBONATE 22.9 MEQ/L (21.0-32.0); BLOOD UREA NITROGEN 10 MG/DL (7-18); CHLORIDE 115 MEQ/L (98-107); GLOMERULAR FILTRATION RATE 71 ML/MIN (>89); MAGNESIUM 1.6 MG/DL (1.5-2.5); POTASSIUM 3.6 MEQ/L (3.5-5.1); SODIUM (NA) 146 MEQ/L (136-145); TOTAL BILIRUBIN ADULT 0.5 MG/DL (0.2-1.0)
[2016-09-04] MEDS: RESP: ALBUTEROL 1.25 MG/3 ML NEB (SCH) NEB ×4 (07:51→19:46)
--- NOTE | 2016-09-04 07:51 | PD.CONS ---
History of Present Illness Service Family medicine Consult Requested By Attending Primary Care Physician Mj Cifuentes DO Diagnoses: (1) Abdominal pain (2) Altered mental status (3) Hypertension, benign (4) COPD (chronic obstructive pulmonary disease) (5) Weakness generalized (6) GI bleed (7) Chronic narcotic dependence History of Present Illness Patient is a 66 year old female well known to our service who is admitted AMS not able to provide any detailed information when rounding. Per note patient was given a fleets enema and became diaphoretic and lethargic. EVAC was called and patient was also found to be hypotension with SBP in the 60's. She has a extensive history of abdominal pain and is followed routinely by Dr. Arevalo. She also has a history of HTN, COPD, chronic pain, myeloproliferate disorder, AFIB, Heart block, colitis, diverticulitis, and metabolic encephalopathy. On palpation patients abdomen is tender. She has been started on antibiotics and GI and ID have been consulted. Review of Systems Constitutional: COMPLAINS OF: Fatigue, Dizziness Respiratory: COMPLAINS OF: Cough, DENIES: Sputum production Cardiovascular: DENIES: Chest pain, Palpitations Gastrointestinal: COMPLAINS OF: Abdominal pain, Bloody stools, Constipation, Nausea Musculoskeletal: COMPLAINS OF: Stiffness, Back pain Neurologic: COMPLAINS OF: Localized weakness, Poor Balance Psychiatric: COMPLAINS OF: Anxiety, Confusion, Depression Past Family Social History Allergies: Coded Allergies: Bactrim (Verified Allergy, Severe, "VOMITING", 08/15/16) Inderal (Verified Allergy, Severe, "CAUSES ASTHMA ATTACK", 08/15/16) Indocin (Verified Allergy, Severe, "NAUSEA", 08/15/16) Penicillin (Verified Allergy, Severe, "HEART FAILURE", 08/15/16) Procardia (Verified Allergy, Severe, "RAPID HEART BEAT", 08/15/16) states does not have a allergy to this medication Yadi,rn 08/15/16 Past Medical History Gastroparesis HTN COPD Chronic pain syndrome Myeloproliferate disorder AFIB Heart block pancreatitis Colitis, diverticulitis metabolic encephalopathy Depression Anxiety Insomnia Past Surgical History Past Surgical History Cystoscopy and double-J stent placement of left ureter 03/26/[address] English Cystoscopy, lithotripsy with stone extraction, double J stent change 04/22/2016 - stent was removed 05/05/2016 Cholecystectomy 1978 Inguinal hernia 1994 and 1997 Cervical fusion 1986, 1998 Hysterectomy 1994 Bladder sling 2002 Reported Medications Reported Meds & Active Scripts Active Pyridium (Phenazopyridine HCl) 100 Mg Tab 100 Mg PO Q8H PRN Zofran (Ondansetron HCl) 8 Mg Tab 8 Mg PO TID PRN Reported Bethanechol 25 Mg Tab 25 Mg PO 1/2 HOUR BEFORE MEAL Oxycodone (Oxycodone HCl) 15 Mg Tab 15 Mg PO BID PRN Benadryl Allergy (Diphenhydramine HCl) 25 Mg Tab 25 Mg PO Q4HR PRN Carvedilol 12.5 Mg Tab 12.5 Mg PO BID Creon (Pancrelipase) 3,000-9,500-15,000 Units Cap 1 Cap PO DAILY Soma (Carisoprodol) 350 Mg Tab 350 Mg PO BID PRN Temazepam 30 Mg Cap 30 Mg PO HS PRN Trazodone (Trazodone HCl) 50 Mg Tab 50 Mg PO HS Enalapril (Enalapril Maleate) 10 Mg Tab 10 Mg PO BID Treximet (Sumatriptan-Naproxen) 85-500 Mg Tab 1 Tab PO ONCE PRN May take a second dose after 2 hours if needed. Maximum 2 tabs in 24 hour period. Oxycontin (Oxycodone HCl) 40 Mg Tab 80 Mg PO Q8HR [IB Dixon] 1 PO BEFORE MEALS Omeprazole 40 Mg Cap 40 Mg PO DAILY Ventolin Hfa 18 GM Inh (Albuterol Sulfate) 90 Mcg/Act Aer 1 Puff INH Q4H PRN Advair Diskus Inh (Fluticasone-Salmeterol Inh) 100-50 Mcg/Blist Aer 1 Puff INH BID Rinse mouth after use. Levalbuterol Neb (Levalbuterol HCl) 0.63 Mg/3 Ml Neb 0.63 Mg INH QID Aspirin 81 Mg Tabdr 81 Mg PO DAILY Hydroxyurea 500 Mg Cap 500 Mg PO DAILY Active Ordered Medications Current Medications Medications (Trade) Dose Ordered Sig/Diane Route Start Time Stop Time Status Last Admin (Levophed-Dextrose Drip) 250 ml @ 0 mls/hr TITRATE IV 09/02/16 23:30 (Brethine Inj) 1 mg UNSCH PRN SQ 09/02/16 23:30 (Zofran Inj) 4 mg Q6H PRN IV 09/03/16 01:45 09/03/16 08:52 (Tylenol) 650 mg Q4H PRN PO 09/03/16 01:45 (NS Flush) 2 ml BID IV FLUSH 09/03/16 09:00 09/03/16 20:52 (NS Flush) 2 ml UNSCH PRN IVF 09/03/16 01:45 (Tylenol) 650 mg Q6H PRN PO 09/03/16 03:00 09/03/16 11:20 (Morphine Inj) 2 mg Q2H PRN IV 09/03/16 03:00 09/04/16 05:33 (Protonix Inj) 40 mg Q12H IV 09/03/16 03:00 09/04/16 01:13 (Ativan Inj) 2 mg Q4H PRN IV 09/03/16 03:00 09/04/16 05:33 (Zofran Inj) 4 mg Q6H PRN IV 09/03/16 03:00 (Reglan Inj) 10 mg Q6H PRN IV 09/03/16 03:00 Miscellaneous Information 1 [id number] XX 09/03/16 03:00 (Chlorhexidine 2% Cloth) 3 pack Taper DAILY@04 TOP 09/03/16 04:00 08/30/17 03:59 09/04/16 04:00 (Chlorhexidine 2% Cloth) 3 pack UNSCH PRN TOP 09/03/16 03:00 (Ventolin Hfa Inh) 1 puff Q4H PRN INH 09/03/16 03:00 (Hydrea) 500 mg DAILY PO 09/03/16 09:00 09/03/16 08:49 (Pyridium) 100 mg Q8H PRN PO 09/03/16 03:00 (Restoril) 30 mg HS PRN PO 09/03/16 03:00 09/03/16 20:40 (Desyrel) 50 mg HS PO 09/03/16 21:00 09/03/16 20:39 (Symbicort 80-4.5 Mcg Inh) 2 puff BID INH 09/03/16 09:00 09/03/16 20:52 Amylase/Lipase/ Protease 1 cap 1 cap DAILY PO 09/03/16 09:00 09/03/16 08:49 Levofloxacin/ Dextrose 150 ml @ 100 mls/hr Q24H IV 09/03/16 07:00 09/04/16 05:32 Metronidazole 100 ml @ 100 mls/hr Q8H IV 09/03/16 06:00 09/04/16 05:32 Potassium Chloride 100 ml @ 50 mls/hr Q2H PRN IV 09/03/16 14:00 (KCl 20 Meq Premix Inj) 100 ml @ 50 mls/hr Q2H PRN IV 09/03/16 14:00 Potassium Bicarb/ Potassium Chloride 50 meq 50 meq UNSCH PRN PO 09/03/16 14:00 Potassium Chloride 100 ml @ 25 mls/hr UNSCH PRN IV 09/03/16 14:00 Potassium Chloride 100 ml @ 50 mls/hr Q2H PRN IV 09/03/16 14:00 (Magnesium Sulfate Inj/NS Inj) 100 ml @ 50 mls/hr UNSCH PRN IV 09/03/16 14:00 Magnesium Oxide 800 mg 800 mg UNSCH PRN PO 09/03/16 14:00 (Magnesium Sulfate Inj/NS Inj) 100 ml @ 50 mls/hr UNSCH PRN IV 09/03/16 14:00 09/03/16 20:51 Potassium Phosphate 2000 mg 2,000 mg Q4H PRN PO 09/03/16 14:00 (Sodium Phosphate Inj/NS 250 ml Inj) 250 ml @ 42 mls/hr UNSCH PRN IV 09/03/16 14:00 09/03/16 20:51 Potassium Phosphate 2000 mg 2,000 mg UNSCH PRN PO/TUBE 09/03/16 14:00 Potassium Phosphate 30 mmol/ Sodium Chloride 260 ml @ 42 mls/hr UNSCH PRN IV 09/03/16 14:00 (D5W-NS 1000 ml Inj) 1,000 ml @ 84 mls/hr [id number] IV 09/03/16 15:15 09/04/16 01:13 Family History Patient unable to identify Social History Smokes occasionally ETOH: none Lives with Physical Exam Vital Signs Vital Signs Date Time Temp Pulse Resp B/P Pulse Ox O2 Delivery O2 Flow Rate FiO2 09/04/16 06:00 114 09/04/16 04:00 98.7 106 22 143/63 96 09/04/16 04:00 115 09/04/16 02:00 109 09/04/16 00:00 98.1 108 21 122/95 92 09/04/16 00:00 108 09/03/16 22:00 110 09/03/16 20:13 97 Nasal Cannula 2.00 09/03/16 20:00 114 09/03/16 20:00 98.9 114 20 107/96 93 09/03/16 18:00 112 09/03/16 16:58 97 21 09/03/16 16:00 98.6 110 20 127/59 92 09/03/16 16:00 110 09/03/16 14:00 113 22 155/76 98 Room Air 09/03/16 13:00 108 22 145/65 98 Room Air 09/03/16 12:48 18 09/03/16 12:00 115 22 160/69 98 Room Air 09/03/16 11:24 18 09/03/16 11:00 120 22 208/87 98 Room Air 09/03/16 10:00 97.8 09/03/16 10:00 115 22 134/86 98 Room Air 09/03/16 09:00 112 22 190/79 98 Room Air 09/03/16 08:00 113 22 174/94 99 Room Air 09/03/16 07:50 100 Nasal Cannula 2.00 Physical Exam GENERAL: Well-nourished, well-developed patient. SKIN: Warm and dry. HEAD: Normocephalic. EYES: No scleral icterus. No injection or drainage. NECK: Supple, trachea midline. No JVD or lymphadenopathy. CARDIOVASCULAR: Regular rate and rhythm without murmurs, gallops, or rubs. RESPIRATORY: Breath sounds equal bilaterally. No accessory muscle use. GASTROINTESTINAL: Abdomen soft, non-tender, nondistended. MUSCULOSKELETAL: No cyanosis, or edema. BACK: Nontender without obvious deformity. No CVA tenderness. EXTREMITIES: No clubbing cyanosis or edema Laboratory Laboratory Tests Test 09/03/16 09/03/16 09/03/16 09/03/16 08:40 12:48 15:10 16:40 Hemoglobin 13.0 12.1 Hematocrit 39.0 37.0 Troponin I LESS THAN 0.02 White Blood Count 18.9 Red Blood Count 3.44 Mean Corpuscular Volume 107.6 Mean Corpuscular Hemoglobin 35.3 Mean Corpuscular Hemoglobin 32.8 Concent Red Cell Distribution Width 13.2 Platelet Count 159 Mean Platelet Volume 9.5 Neutrophils (%) (Auto) 83.3 Lymphocytes (%) (Auto) 10.7 Monocytes (%) (Auto) 5.9 Eosinophils (%) (Auto) 0.0 Basophils (%) (Auto) 0.1 Neutrophils # (Auto) 15.8 Lymphocytes # (Auto) 2.0 Monocytes # (Auto) 1.1 Eosinophils # (Auto) 0.0 Basophils # (Auto) 0.0 CBC Comment AUTO DIFF Differential Total Cells 100 Counted Neutrophils % (Manual) 81 Band Neutrophils % 13 Lymphocytes % 3 Monocytes % 3 Neutrophils # (Manual) 17.8 Differential Comment FINAL DIFF MANUAL Platelet Estimate NORMAL Platelet Morphology Comment NORMAL Sodium Level 145 Potassium Level 4.5 Chloride Level 115 Carbon Dioxide Level 21.1 Anion Gap 9 Blood Urea Nitrogen 11 Creatinine 0.86 Estimat Glomerular Filtration 66 Rate Random Glucose 130 Calcium Level 8.0 Phosphorus Level 2.2 2.5 Magnesium Level 1.2 Total Bilirubin 0.6 Aspartate Amino Transf 19 (AST/SGOT) Alanine Aminotransferase 10 (ALT/SGPT) Alkaline Phosphatase 50 Total Protein 5.9 Albumin 2.5 Nasal Screen MRSA (PCR) NEGATIVE Test 09/03/16 09/04/16 21:15 05:45 Hemoglobin 10.6 10.4 Hematocrit 30.9 30.1 White Blood Count 13.1 Red Blood Count 2.82 Mean Corpuscular Volume 106.8 Mean Corpuscular Hemoglobin 36.8 Mean Corpuscular Hemoglobin 34.4 Concent Red Cell Distribution Width 13.3 Platelet Count 114 Mean Platelet Volume 8.9 Neutrophils (%) (Auto) 70.8 Lymphocytes (%) (Auto) 22.3 Monocytes (%) (Auto) 6.6 Eosinophils (%) (Auto) 0.2 Basophils (%) (Auto) 0.1 Neutrophils # (Auto) 9.3 Lymphocytes # (Auto) 2.9 Monocytes # (Auto) 0.9 Eosinophils # (Auto) 0.0 Basophils # (Auto) 0.0 CBC Comment DIFF FINAL Differential Comment Sodium Level 146 Potassium Level 3.6 Chloride Level 115 Carbon Dioxide Level 22.9 Anion Gap 8 Blood Urea Nitrogen 10 Creatinine 0.81 Estimat Glomerular Filtration 71 Rate Random Glucose 112 Lactic Acid Level 1.2 Calcium Level 7.8 Phosphorus Level 3.4 Magnesium Level 1.6 Total Bilirubin 0.5 Aspartate Amino Transf 14 (AST/SGOT) Alanine Aminotransferase 8 (ALT/SGPT) Alkaline Phosphatase 42 Total Protein 5.4 Albumin 2.2 Date/Time Procedure Status Source Growth 09/02/16 23:50 Urine Culture Received Urine Clean Catch Pending 09/02/16 23:45 Aerobic Blood Culture - Preliminary Resulted Blood Peripheral NO GROWTH IN 1 DAY 09/02/16 23:45 Anaerobic Blood Culture - Preliminary Resulted Blood Peripheral NO GROWTH IN 1 DAY Result Diagram: 09/04/16 0545 09/04/1645 Imaging Last 48 hours Impressions Abdomen/Pelvis CT 09/03/16 0000 Signed Impressions: Service Date/Time: Saturday, September 03, 2016 02:00 - CONCLUSION: Long segment colitis involving the descending and sigmoid colon. Low density throughout the head of the pancreas increased since July possible pancreatitis. Free fluid around the liver, spleen and within the pelvis of uncertain etiology. Jaya Pearl MD Head CT 09/02/162322 Signed Impressions: Service Date/Time: Saturday, September 03, 2016 01:56 - CONCLUSION: Normal examination. Jaya Pearl MD Chest X-Ray 09/02/162322 Signed Impressions: Service Date/Time: Friday, September 02, 2016 23:32 - CONCLUSION: Normal examination. Jaya Pearl MD Assessment and Plan Problem List: (1) Abdominal pain Status: Acute Plan: Abdomen tender to palpation. GI consulted and managing. Recommends IV hydration, antibiotics, and PPI. CT with Long segment colitis involving the descending and sigmoid colon. Low density throughout the head of the pancreas increased since July possible pancreatitis. Free fluid around the liver, spleen and within the pelvis of uncertain etiology. Continue levaquin and flagyl. ID consulted PPI Hydration (2) Altered mental status Status: Acute Plan: Patient with AMS. Groaning out at times. Head CT with no acute findings. Will monitor could be related to infection and polypharmacy (3) Hypertension, benign Status: Chronic Plan: Patient was initially hypotension when she arrived. B/P has recovered. Home blood pressure medication on hold. Will monitor (4) COPD (chronic obstructive pulmonary disease) Status: Acute Plan: No SOB noted. RA Good sats. Continue Symbicort and vent inhaler (5) Chronic pain syndrome Status: Acute Plan: Patient medication as needed. (6) Myeloproliferative disease Status: Acute Plan: Continue Hydroxyurea Assessment and Plan Assessment and plan discussed with Dr. Cifuentes Discussed Condition With Nursing Problem Qualifiers (1) GI bleed: Qualified Code: K92.2 - Gastrointestinal hemorrhage, unspecified gastrointestinal hemorrhage type Cailin Sorenson Sep 04, 2016 07:51
--- NOTE | 2016-09-04 08:35 | HHI.GIFU ---
Subjective Remarks Feeling better today abdominal and chest wall pain vastly improved Objective Vitals I&O Vital Signs Date Time Temp Pulse Resp B/P Pulse Ox O2 Delivery O2 Flow Rate FiO2 09/04/16 07:54 95 Nasal Cannula 4.00 09/04/16 06:00 114 09/04/16 04:00 98.7 106 22 143/63 96 09/04/16 04:00 115 09/04/16 02:00 109 09/04/16 00:00 98.1 108 21 122/95 92 09/04/16 00:00 108 09/03/16 22:00 110 09/03/16 20:13 97 Nasal Cannula 2.00 09/03/16 20:00 114 09/03/16 20:00 98.9 114 20 107/96 93 09/03/16 18:00 112 09/03/16 16:58 97 21 09/03/16 16:00 98.6 110 20 127/59 92 09/03/16 16:00 110 09/03/16 14:00 113 22 155/76 98 Room Air 09/03/16 13:00 108 22 145/65 98 Room Air 09/03/16 12:48 18 09/03/16 12:00 115 22 160/69 98 Room Air 09/03/16 11:24 18 09/03/16 11:00 120 22 208/87 98 Room Air 09/03/16 10:00 97.8 09/03/16 10:00 115 22 134/86 98 Room Air 09/03/16 09:00 112 22 190/79 98 Room Air I/O 09/03/16 09/03/16 09/03/16 09/04/16 09/04/16 09/04/16 07:00 15:00 23:00 07:00 15:00 23:00 Intake Total 2947 ml 1022 ml Output Total 1000 ml 800 ml 600 ml Balance -1000 ml 2147 ml 422 ml Intake Oral 250 ml IV Total 2697 ml 1022 ml Output Urine Total 1000 ml 800 ml 600 ml # Voids 0 # Bowel Movements 1 0 0 Laboratory Laboratory Tests Test 09/03/16 09/03/16 09/03/16 09/03/16 08:40 12:48 15:10 16:40 Hemoglobin 13.0 12.1 Hematocrit 39.0 37.0 Troponin I LESS THAN 0.02 White Blood Count 18.9 Red Blood Count 3.44 Mean Corpuscular Volume 107.6 Mean Corpuscular Hemoglobin 35.3 Mean Corpuscular Hemoglobin 32.8 Concent Red Cell Distribution Width 13.2 Platelet Count 159 Mean Platelet Volume 9.5 Neutrophils (%) (Auto) 83.3 Lymphocytes (%) (Auto) 10.7 Monocytes (%) (Auto) 5.9 Eosinophils (%) (Auto) 0.0 Basophils (%) (Auto) 0.1 Neutrophils # (Auto) 15.8 Lymphocytes # (Auto) 2.0 Monocytes # (Auto) 1.1 Eosinophils # (Auto) 0.0 Basophils # (Auto) 0.0 CBC Comment AUTO DIFF Differential Total Cells 100 Counted Neutrophils % (Manual) 81 Band Neutrophils % 13 Lymphocytes % 3 Monocytes % 3 Neutrophils # (Manual) 17.8 Differential Comment FINAL DIFF MANUAL Platelet Estimate NORMAL Platelet Morphology Comment NORMAL Sodium Level 145 Potassium Level 4.5 Chloride Level 115 Carbon Dioxide Level 21.1 Anion Gap 9 Blood Urea Nitrogen 11 Creatinine 0.86 Estimat Glomerular Filtration 66 Rate Random Glucose 130 Calcium Level 8.0 Phosphorus Level 2.2 2.5 Magnesium Level 1.2 Total Bilirubin 0.6 Aspartate Amino Transf 19 (AST/SGOT) Alanine Aminotransferase 10 (ALT/SGPT) Alkaline Phosphatase 50 Total Protein 5.9 Albumin 2.5 Nasal Screen MRSA (PCR) NEGATIVE Test 09/03/16 09/04/16 21:15 05:45 Hemoglobin 10.6 10.4 Hematocrit 30.9 30.1 White Blood Count 13.1 Red Blood Count 2.82 Mean Corpuscular Volume 106.8 Mean Corpuscular Hemoglobin 36.8 Mean Corpuscular Hemoglobin 34.4 Concent Red Cell Distribution Width 13.3 Platelet Count 114 Mean Platelet Volume 8.9 Neutrophils (%) (Auto) 70.8 Lymphocytes (%) (Auto) 22.3 Monocytes (%) (Auto) 6.6 Eosinophils (%) (Auto) 0.2 Basophils (%) (Auto) 0.1 Neutrophils # (Auto) 9.3 Lymphocytes # (Auto) 2.9 Monocytes # (Auto) 0.9 Eosinophils # (Auto) 0.0 Basophils # (Auto) 0.0 CBC Comment DIFF FINAL Differential Comment Sodium Level 146 Potassium Level 3.6 Chloride Level 115 Carbon Dioxide Level 22.9 Anion Gap 8 Blood Urea Nitrogen 10 Creatinine 0.81 Estimat Glomerular Filtration 71 Rate Random Glucose 112 Lactic Acid Level 1.2 Calcium Level 7.8 Phosphorus Level 3.4 Magnesium Level 1.6 Total Bilirubin 0.5 Aspartate Amino Transf 14 (AST/SGOT) Alanine Aminotransferase 8 (ALT/SGPT) Alkaline Phosphatase 42 Total Protein 5.4 Albumin 2.2 Date/Time Procedure Status Source Growth 09/02/16 23:50 Urine Culture Received Urine Clean Catch Pending 09/02/16 23:45 Aerobic Blood Culture - Preliminary Resulted Blood Peripheral NO GROWTH IN 1 DAY 09/02/16 23:45 Anaerobic Blood Culture - Preliminary Resulted Blood Peripheral NO GROWTH IN 1 DAY Imaging Last Impressions Abdomen/Pelvis CT 09/03/16 0000 Signed Impressions: Service Date/Time: Saturday, September 03, 2016 02:00 - CONCLUSION: Long segment colitis involving the descending and sigmoid colon. Low density throughout the head of the pancreas increased since July possible pancreatitis. Free fluid around the liver, spleen and within the pelvis of uncertain etiology. Jaya Pearl MD Head CT 09/02/162322 Signed Impressions: Service Date/Time: Saturday, September 03, 2016 01:56 - CONCLUSION: Normal examination. Jaya Pearl MD Chest X-Ray 09/02/162322 Signed Impressions: Service Date/Time: Friday, September 02, 2016 23:32 - CONCLUSION: Normal examination. Jaya Pearl MD Physical Exam NECK: Neck is supple, no JVD, no lymphadenopathy. CHEST: Chest is clear to auscultation and percussion. CARDIAC: Regular rate and rhythm with no murmur gallop or rubs. ABDOMEN: Soft, nondistended, nontender; bowel sounds are present in all four quadrants. EXTREMITIES: No clubbing, cyanosis, or edema. SKIN: Normal; no rash; no jaundice. Assessment and Plan Assessment: (1) Abdominal pain (2) Colitis (3) Chest discomfort (4) Pancreatitis, recurrent (5) Sepsis Plan Will advance to clear liquids for now...Continue present therapy as pt appears improved overall...have ordered serum ammonia level and amylase and lipase....?early septic event, ?ischemic colitis..Will fu closely discussed with at bedside ICU Problem Qualifiers (1) Sepsis: Qualified Code: A41.9 - Sepsis, due to unspecified organism Mickey,Nirav R. MD Sep 04, 2016 08:35
[2016-09-04] MEDS: SODIUM CHLORIDE 0.9% FLUSH 10 ML FLUSH IV FLUSH SCH ×2 (09:05→20:16)
[2016-09-04] MEDS: BUDESONIDE-FORMOTEROL 80/4.5 MCG INHALER INH SCH ×2 (09:06→20:16)
[2016-09-04] MEDS: LIPASE/PROTEASE/AMYLASE (6,000/19,000/30,000) CAP PO SCH (09:06)
[2016-09-04] MEDS: HYDROXYUREA 500 MG CAP PO SCH (09:28)
--- NOTE | 2016-09-04 09:34 | PD.ID.CON ---
History of Present Illness Service ID Consult Requested By Reason for Consult Evaluation and Mment of Elevated WBC and Colitis. Primary Care Physician Mj Cifuentes, DO Diagnoses: History of Present Illness is a 66 y/o CF with PMHx of chronic pain secondary to some injuries resulting in neck and back pain. provided most of the history as patient is encephalopathic. Patient sees a pain medicine specialist and is on very significant amounts of narcotics. She also has a history of HTN, COPD, chronic pain, myeloproliferate disorder, AFIB, Heart block, colitis, gastroparesis, pancreatitis, diverticulitis, and metabolic encephalopathy. Patient follows with for GI and for Cardiac issues. Patient reportedly was scheduled for stress test but has not been able to make it to appointments. Patient was seen by me last admission when she was s/b GI and ID and sent home on oral flagyl for diverticulitis and ? cdiff. reports since then patient has been at rehab, admission for cardiac workup and encephalopathy workup. Per patients spouse patient was complaining of abdominal pain, had constipation and given her narcotic use she was given fleets enema. Patient had a BM and became diaphoretic and lethargic. EVAC was called and patient was also found to be hypotension with SBP in the 60's. On palpation patients abdomen is tender. She has been started on antibiotics and GI and ID have been consulted. Patient is currently being managed for pancreatitis and Colitis. Patient was also found to be encephalopathic and a CT head was done which was normal. Patients spouse reports she has had multiple MRIs at and reportedly normal. She also had EEG at [facility] which showed encephalopathy. Flagyl was DCed for concern of cause for encephalopathy but despite stopping patient continues to be encephalopathic. ID was consulted for evaluation and Mment of elevated WBC, abdominal pain and CT with colitis. Sepsis workup initiated and patient on IV Levaquin and IV Flagyl for presumed infectious colitis. Review of Systems ROS Limitations: Altered Mental Status Past Family Social History Allergies: Coded Allergies: Bactrim (Verified Allergy, Severe, "VOMITING", 08/15/16) Inderal (Verified Allergy, Severe, "CAUSES ASTHMA ATTACK", 08/15/16) Indocin (Verified Allergy, Severe, "NAUSEA", 08/15/16) Penicillin (Verified Allergy, Severe, "HEART FAILURE", 08/15/16) Procardia (Verified Allergy, Severe, "RAPID HEART BEAT", 08/15/16) states does not have a allergy to this medication carlos Grullon 08/15/16 Past Medical History Gastroparesis HTN COPD Chronic pain syndrome Myeloproliferate disorder AFIB Heart block pancreatitis Colitis, diverticulitis metabolic encephalopathy Depression Anxiety Insomnia Past Surgical History Cystoscopy and double-J stent placement of left ureter 03/26/[address] English Cystoscopy, lithotripsy with stone extraction, double J stent change 04/22/2016 - stent was removed 05/05/2016 Cholecystectomy 1978 Inguinal hernia 1994 and 1997 Cervical fusion 1986, 1998 Hysterectomy 1994 Bladder sling 2002 Reported Medications Reported Meds & Active Scripts Active Pyridium (Phenazopyridine HCl) 100 Mg Tab 100 Mg PO Q8H PRN Zofran (Ondansetron HCl) 8 Mg Tab 8 Mg PO TID PRN Reported Bethanechol 25 Mg Tab 25 Mg PO 1/2 HOUR BEFORE MEAL Oxycodone (Oxycodone HCl) 15 Mg Tab 15 Mg PO BID PRN Benadryl Allergy (Diphenhydramine HCl) 25 Mg Tab 25 Mg PO Q4HR PRN Carvedilol 12.5 Mg Tab 12.5 Mg PO BID Creon (Pancrelipase) 3,000-9,500-15,000 Units Cap 1 Cap PO DAILY Soma (Carisoprodol) 350 Mg Tab 350 Mg PO BID PRN Temazepam 30 Mg Cap 30 Mg PO HS PRN Trazodone (Trazodone HCl) 50 Mg Tab 50 Mg PO HS Enalapril (Enalapril Maleate) 10 Mg Tab 10 Mg PO BID Treximet (Sumatriptan-Naproxen) 85-500 Mg Tab 1 Tab PO ONCE PRN May take a second dose after 2 hours if needed. Maximum 2 tabs in 24 hour period. Oxycontin (Oxycodone HCl) 40 Mg Tab 80 Mg PO Q8HR [IB Dixon] 1 PO BEFORE MEALS Omeprazole 40 Mg Cap 40 Mg PO DAILY Ventolin Hfa 18 GM Inh (Albuterol Sulfate) 90 Mcg/Act Aer 1 Puff INH Q4H PRN Advair Diskus Inh (Fluticasone-Salmeterol Inh) 100-50 Mcg/Blist Aer 1 Puff INH BID Rinse mouth after use. Levalbuterol Neb (Levalbuterol HCl) 0.63 Mg/3 Ml Neb 0.63 Mg INH QID Aspirin 81 Mg Tabdr 81 Mg PO DAILY Hydroxyurea 500 Mg Cap 500 Mg PO DAILY Active Ordered Medications Current Medications Medications (Trade) Dose Ordered Sig/Diane Route Start Time Stop Time Status Last Admin (Levophed-Dextrose Drip) 250 ml @ 0 mls/hr TITRATE IV 09/02/16 23:30 (Brethine Inj) 1 mg UNSCH PRN SQ 09/02/16 23:30 (Zofran Inj) 4 mg Q6H PRN IV 09/03/16 01:45 09/03/16 08:52 (Tylenol) 650 mg Q4H PRN PO 09/03/16 01:45 (NS Flush) 2 ml BID IV FLUSH 09/03/16 09:00 09/04/16 09:05 (NS Flush) 2 ml UNSCH PRN IVF 09/03/16 01:45 (Tylenol) 650 mg Q6H PRN PO 09/03/16 03:00 09/03/16 11:20 (Morphine Inj) 2 mg Q2H PRN IV 09/03/16 03:00 09/04/16 05:33 (Protonix Inj) 40 mg Q12H IV 09/03/16 03:00 09/04/16 01:13 (Ativan Inj) 2 mg Q4H PRN IV 09/03/16 03:00 09/04/16 05:33 (Zofran Inj) 4 mg Q6H PRN IV 09/03/16 03:00 (Reglan Inj) 10 mg Q6H PRN IV 09/03/16 03:00 Miscellaneous Information 1 [id number] XX 09/03/16 03:00 (Chlorhexidine 2% Cloth) 3 pack Taper DAILY@04 TOP 09/03/16 04:00 08/30/17 03:59 09/04/16 04:00 (Chlorhexidine 2% Cloth) 3 pack UNSCH PRN TOP 09/03/16 03:00 (Ventolin Hfa Inh) 1 puff Q4H PRN INH 09/03/16 03:00 (Hydrea) 500 mg DAILY PO 09/03/16 09:00 09/04/16 09:28 (Pyridium) 100 mg Q8H PRN PO 09/03/16 03:00 (Restoril) 30 mg HS PRN PO 09/03/16 03:00 09/03/16 20:40 (Desyrel) 50 mg HS PO 09/03/16 21:00 09/03/16 20:39 (Symbicort 80-4.5 Mcg Inh) 2 puff BID INH 09/03/16 09:00 09/04/16 09:06 Amylase/Lipase/ Protease 1 cap 1 cap DAILY PO 09/03/16 09:00 09/04/16 09:06 Levofloxacin/ Dextrose 150 ml @ 100 mls/hr Q24H IV 09/03/16 07:00 09/04/16 05:32 Metronidazole 100 ml @ 100 mls/hr Q8H IV 09/03/16 06:00 09/04/16 05:32 Potassium Chloride 100 ml @ 50 mls/hr Q2H PRN IV 09/03/16 14:00 (KCl 20 Meq Premix Inj) 100 ml @ 50 mls/hr Q2H PRN IV 09/03/16 14:00 Potassium Bicarb/ Potassium Chloride 50 meq 50 meq UNSCH PRN PO 09/03/16 14:00 Potassium Chloride 100 ml @ 25 mls/hr UNSCH PRN IV 09/03/16 14:00 Potassium Chloride 100 ml @ 50 mls/hr Q2H PRN IV 09/03/16 14:00 (Magnesium Sulfate Inj/NS Inj) 100 ml @ 50 mls/hr UNSCH PRN IV 09/03/16 14:00 Magnesium Oxide 800 mg 800 mg UNSCH PRN PO 09/03/16 14:00 (Magnesium Sulfate Inj/NS Inj) 100 ml @ 50 mls/hr UNSCH PRN IV 09/03/16 14:00 09/03/16 20:51 Potassium Phosphate 2000 mg 2,000 mg Q4H PRN PO 09/03/16 14:00 (Sodium Phosphate Inj/NS 250 ml Inj) 250 ml @ 42 mls/hr UNSCH PRN IV 09/03/16 14:00 09/03/16 20:51 Potassium Phosphate 2000 mg 2,000 mg UNSCH PRN PO/TUBE 09/03/16 14:00 Potassium Phosphate 30 mmol/ Sodium Chloride 260 ml @ 42 mls/hr UNSCH PRN IV 09/03/16 14:00 (D5W-NS 1000 ml Inj) 1,000 ml @ 84 mls/hr [id number] IV 09/03/16 15:15 09/04/16 01:13 Family History reviewed and NC to current ID problems. Social History reviewed. Physical Exam Vital Signs Vital Signs Date Time Temp Pulse Resp B/P Pulse Ox O2 Delivery O2 Flow Rate FiO2 09/04/16 08:00 113 09/04/16 07:54 95 Nasal Cannula 4.00 09/04/16 06:00 114 09/04/16 04:00 98.7 106 22 143/63 96 09/04/16 04:00 115 09/04/16 02:00 109 09/04/16 00:00 98.1 108 21 122/95 92 09/04/16 00:00 108 09/03/16 22:00 110 09/03/16 20:13 97 Nasal Cannula 2.00 09/03/16 20:00 114 09/03/16 20:00 98.9 114 20 107/96 93 09/03/16 18:00 112 09/03/16 16:58 97 21 09/03/16 16:00 98.6 110 20 127/59 92 09/03/16 16:00 110 09/03/16 14:00 113 22 155/76 98 Room Air 09/03/16 13:00 108 22 145/65 98 Room Air 09/03/16 12:48 18 09/03/16 12:00 115 22 160/69 98 Room Air 09/03/16 11:24 18 09/03/16 11:00 120 22 208/87 98 Room Air 09/03/16 10:00 97.8 09/03/16 10:00 115 22 134/86 98 Room Air Physical Exam GENERAL: This is a well-nourished, well-developed patient, in no apparent distress. SKIN: No rashes, ecchymoses or lesions. Cool and dry. HEAD: Atraumatic. Normocephalic. No temporal or scalp tenderness. EYES: Pupils equal round and reactive. Extraocular motions intact. No scleral icterus. No injection or drainage. ENT: Nose without bleeding, purulent drainage or septal hematoma. Throat without erythema, tonsillar hypertrophy or exudate. Uvula midline. Airway patent. NECK: Trachea midline. Supple, nontender, no meningeal signs. CARDIOVASCULAR: RRR RESPIRATORY: Clear to auscultation. Breath sounds equal bilaterally. No wheezes , rales, or rhonchi. GASTROINTESTINAL: Abdomen soft, tenderness in all 4 quadrants most pronounced in LLQ and LUQ. MUSCULOSKELETAL: Extremities without clubbing, cyanosis, or edema. No joint tenderness, effusion, or edema noted. No calf tenderness. Negative Homans sign bilaterally. NEUROLOGICAL: Awake and alert but confused. Non focal Psych: cooperative IV line sites with no e.o infection. Laboratory Laboratory Tests Test 09/03/16 09/03/16 09/03/16 09/03/16 12:48 15:10 16:40 21:15 White Blood Count 18.9 Red Blood Count 3.44 Hemoglobin 12.1 10.6 Hematocrit 37.0 30.9 Mean Corpuscular Volume 107.6 Mean Corpuscular Hemoglobin 35.3 Mean Corpuscular Hemoglobin 32.8 Concent Red Cell Distribution Width 13.2 Platelet Count 159 Mean Platelet Volume 9.5 Neutrophils (%) (Auto) 83.3 Lymphocytes (%) (Auto) 10.7 Monocytes (%) (Auto) 5.9 Eosinophils (%) (Auto) 0.0 Basophils (%) (Auto) 0.1 Neutrophils # (Auto) 15.8 Lymphocytes # (Auto) 2.0 Monocytes # (Auto) 1.1 Eosinophils # (Auto) 0.0 Basophils # (Auto) 0.0 CBC Comment AUTO DIFF Differential Total Cells 100 Counted Neutrophils % (Manual) 81 Band Neutrophils % 13 Lymphocytes % 3 Monocytes % 3 Neutrophils # (Manual) 17.8 Differential Comment FINAL DIFF MANUAL Platelet Estimate NORMAL Platelet Morphology Comment NORMAL Sodium Level 145 Potassium Level 4.5 Chloride Level 115 Carbon Dioxide Level 21.1 Anion Gap 9 Blood Urea Nitrogen 11 Creatinine 0.86 Estimat Glomerular Filtration 66 Rate Random Glucose 130 Calcium Level 8.0 Phosphorus Level 2.2 2.5 Magnesium Level 1.2 Total Bilirubin 0.6 Aspartate Amino Transf 19 (AST/SGOT) Alanine Aminotransferase 10 (ALT/SGPT) Alkaline Phosphatase 50 Total Protein 5.9 Albumin 2.5 Nasal Screen MRSA (PCR) NEGATIVE Test 09/04/16 05:45 White Blood Count 13.1 Red Blood Count 2.82 Hemoglobin 10.4 Hematocrit 30.1 Mean Corpuscular Volume 106.8 Mean Corpuscular Hemoglobin 36.8 Mean Corpuscular Hemoglobin 34.4 Concent Red Cell Distribution Width 13.3 Platelet Count 114 Mean Platelet Volume 8.9 Neutrophils (%) (Auto) 70.8 Lymphocytes (%) (Auto) 22.3 Monocytes (%) (Auto) 6.6 Eosinophils (%) (Auto) 0.2 Basophils (%) (Auto) 0.1 Neutrophils # (Auto) 9.3 Lymphocytes # (Auto) 2.9 Monocytes # (Auto) 0.9 Eosinophils # (Auto) 0.0 Basophils # (Auto) 0.0 CBC Comment DIFF FINAL Differential Comment Sodium Level 146 Potassium Level 3.6 Chloride Level 115 Carbon Dioxide Level 22.9 Anion Gap 8 Blood Urea Nitrogen 10 Creatinine 0.81 Estimat Glomerular Filtration 71 Rate Random Glucose 112 Lactic Acid Level 1.2 Calcium Level 7.8 Phosphorus Level 3.4 Magnesium Level 1.6 Total Bilirubin 0.5 Aspartate Amino Transf 14 (AST/SGOT) Alanine Aminotransferase 8 (ALT/SGPT) Alkaline Phosphatase 42 Total Protein 5.4 Albumin 2.2 Date/Time Procedure Status Source Growth 09/02/16 23:50 Urine Culture Received Urine Clean Catch Pending 09/02/16 23:45 Aerobic Blood Culture - Preliminary Resulted Blood Peripheral NO GROWTH IN 1 DAY 09/02/16 23:45 Anaerobic Blood Culture - Preliminary Resulted Blood Peripheral NO GROWTH IN 1 DAY Result Diagram: 09/04/16 0545 09/04/16 0545 Imaging Last Impressions Abdomen/Pelvis CT 09/03/16 0000 Signed Impressions: Service Date/Time: Saturday, September 03, 2016 02:00 - CONCLUSION: Long segment colitis involving the descending and sigmoid colon. Low density throughout the head of the pancreas increased since July possible pancreatitis. Free fluid around the liver, spleen and within the pelvis of uncertain etiology. Jaya Pearl MD Head CT 09/02/162322 Signed Impressions: Service Date/Time: Saturday, September 03, 2016 01:56 - CONCLUSION: Normal examination. Jaya Pearl MD Chest X-Ray 09/02/162322 Signed Impressions: Service Date/Time: Friday, September 02, 2016 23:32 - CONCLUSION: Normal examination. Jaya Pearl MD Assessment and Plan Assessment and Plan Possible Sepsis present on admission (hypothermia, elevated WBC, encephalopathy) Colitis: infectious, ischemic (given her cardiac history and Afib), Cdiff Acute pancreatitis Acute metabolic encephalopathy: infection, pain meds. Recs: Continue Levaquin IV Continue Flagyl IV Follow cultures Follow clinically. No neck stiffness. Symptoms appear GI related. Do not feel strongly about LP at this point. Paulina Alfaro MD Sep 04, 2016 09:34
[2016-09-04] MEDS: ACETAMINOPHEN 325 MG TAB PO PRN (15:16)
[2016-09-04] MEDS: cloNIDine HCL 0.1 MG TAB PO PRN (15:16)
[2016-09-04] MEDS: ONDANSETRON HCL 4 MG/2 ML VIAL IV PRN (15:41)
[2016-09-04] MEDS: CARVEDILOL 12.5 MG TAB PO SCH (20:15)
[2016-09-04] MEDS: traZODone HCL 50 MG TAB PO SCH (20:15)
[2016-09-04] MEDS: PREGABALIN 100 MG CAP PO SCH (20:32)
[2016-09-04] MEDS: ENALAPRIL MALEATE 10 MG TAB PO SCH (20:33)
[2016-09-05] VITALS (14 sets, daily range): BP systolic 110–178; BP diastolic 57–78; PULSE 72–96; RESP 17–23; TEMP 97.4–98.6; O2SAT 96–100
[2016-09-05] MEDS: PANTOPRAZOLE SODIUM 40 MG VIAL IV SCH ×2 (02:30→17:56)
[2016-09-05] MEDS: CHLORHEXIDINE GLUCONATE 2 % 1 PACK (2 CLOTHS) TOP SCH (02:31)
[2016-09-05] MEDS: DEXT 5%-NACL 0.9% 1000 ML INJ 1,000 ML IV SCH ×2 (02:31→14:55)
[2016-09-05] MEDS: metroNIDAZOLE 500 MG INJ 100 ML IV SCH ×3 (05:13→20:42)
[2016-09-05] MEDS: PREGABALIN 100 MG CAP PO SCH ×3 (05:13→20:41)
--- NOTE | 2016-09-05 06:01 | MB ---
cc: DEMOND ORTIZ M.D. DATE OF CONSULTATION 09/04/2016 REASON FOR CONSULTATION Abdominal pain. Patient known to me. HISTORY OF PRESENT ILLNESS The patient is a 66-year-old female with multiple medical problems who was seen by me many years ago for chronic abdominal pain and constipation. The patient was on narcotics at that time and eventually got off all of them and had her abdominal pain and constipation resolved. She has since returned to taking large doses of narcotics and had altered mental status and was admitted with a question of sepsis and colitis. The patient has been seen by Dr. Arevalo who knows her well as well as Dr. Alfaro for infectious diseases. PAST MEDICAL HISTORY Extensive and includes - 1. Gastroparesis. 2. Atrial fibrillation. 3. Hypertension. 4. COPD on home oxygen. 5. Irritable bowel syndrome. 6. Nephrolithiasis with double-J stent placement recently by Dr. English. 7. Cervicalgia. 8. Depression, anxiety. 9. Myeloproliferative disorder. PAST SURGICAL HISTORY 1. Inguinal hernia repair in 1994 and 1997 by the undersigned. 2. Cervical fusion in 1986 and 1998. 3. Hysterectomy in 1994. 4. Cholecystectomy in 1977. 5. Cystoscopy with stone extraction and doubled J-stent change 04/22/2016 with stent removed 05/05/2016. MEDICATIONS CURRENTLY 1. Lyrica 100 mg p.o. q. 8 hours. 1. Vasotec 10 mg p.o. b.i.d. 2. Carvedilol 12.5 mg p.o. b.i.d. 3. Clonidine 0.1 mg q.6 hours p.r.n. blood pressure. 4. Trazodone 50 mg p.o. q.h.s. 5. Potassium and magnesium supplements per electrolyte protocol. 6. Albuterol sulfate 1.25 mg q.i.d. 7. Hydroxyurea 500 mg p.o. daily. 8. Budesonide formoterol fumarate 2 puffs b.i.d. 9. Lipase. 10. Protease amylase capsule, 1 capsule daily. 11. Levaquin and Flagyl q. 24 and q. 8 hours respectively. 13. Morphine sulfate 2 mg p.r.n. 14. Protonix 40 mg IV q.12 hours. 15. Ativan 2 mg IV q.4 hours p.r.n. 16. Zofran 4 mg IV q.6 hours p.r.n. 17. Reglan 10 mg IV q.6 hours p.r.n. 18. Albuterol q.2 hours as needed for wheezing. 19. Temazepam 30 mg p.o. q.h.s. p.r.n. 20. Terbutaline 1 mg. 21. Norepinephrine titrated to maintain blood pressure. PHYSICAL EXAM GENERAL: A female lying quietly in the bed. She states she has abdominal pain but does not have any guarding or rebound. CHEST: Clear to auscultation. CARDIAC EXAM: Irregular rhythm. CT ABDOMEN AND PELVIS Demonstrates a moderate amount of fluid around the liver, increased since July. There is marked wall thickening and inflammatory stranding around the descending and sigmoid colon. The abdominal wall is within normal limits. LABORATORY VALUES WBCs of 13.1 down from 18.9 yesterday. Hemoglobin is 10.4, platelet count 114,000. Chemistries: Sodium 146, potassium 3.6, BUN and creatinine 10 and 0.8. Liver Function Tests: Bilirubin 0.5, AST, ALT and alkaline phosphatase are all low. Lactate level was 1.2. Ammonia level was 19. ASSESSMENT A 66-year-old female with multiple medical problems, abdominal pain with chronic constipation due to heavy chronic narcotic use. PLAN As her abdominal pain is better, no further intervention is required at this time. It is unlikely she will be able to get off of narcotics but this is ideal treatment for her problem. She also likely has C. diff colitis or some other nonspecific colitis. Unless perforation occurs, no further intervention is required. I will see her tomorrow and one of my associates will see her over the weekend on one of the two days. We will follow with you. Thank you for this consult. MD LORI Hunt/SAYRA /11:12 PM /5:44 AM
--- NOTE | 2016-09-05 06:52 | HHI.PR ---
Subjective Remarks Patient is sleepy, able to wake up complains of abdominal discomfort when abdomen palpated. Objective Vital Signs Date Time Temp Pulse Resp B/P Pulse Ox O2 Delivery O2 Flow Rate FiO2 09/05/16 06:00 76 09/05/16 04:00 98.3 78 20 110/57 98 09/05/16 04:00 78 09/05/16 02:00 81 09/05/16 00:00 98.2 92 20 115/74 100 09/05/16 00:00 92 09/04/16 22:00 84 09/04/16 20:00 98.4 114 22 166/79 97 09/04/16 20:00 114 09/04/16 19:46 99 Nasal Cannula 2.00 09/04/16 18:00 110 09/04/16 17:00 131/59 09/04/16 16:00 98.6 122 29 195/88 97 09/04/16 16:00 122 09/04/16 14:13 20 09/04/16 14:00 121 09/04/16 12:00 109 09/04/16 12:00 98.3 109 22 163/72 97 09/04/16 10:00 109 09/04/16 08:00 113 09/04/16 08:00 98.4 123 23 175/87 100 09/04/16 07:54 95 Nasal Cannula 4.00 I/O 09/04/16 09/04/16 09/04/16 09/05/16 09/05/16 09/05/16 07:00 15:00 23:00 07:00 15:00 23:00 Intake Total 1022 ml 1172 ml 1000 ml 832 ml Output Total 600 ml 575 ml 600 ml 300 ml Balance 422 ml 597 ml 400 ml 532 ml Intake Oral 240 ml 300 ml 200 ml IV Total 1022 ml 932 ml 700 ml 632 ml Output Urine Total 600 ml 575 ml 600 ml 300 ml # Bowel Movements 0 0 2 Result Diagram: 09/04/16 0545 09/04/16 0545 Imaging Last 72 hours Impressions Abdomen/Pelvis CT 09/03/16 0000 Signed Impressions: Service Date/Time: Saturday, September 03, 2016 02:00 - CONCLUSION: Long segment colitis involving the descending and sigmoid colon. Low density throughout the head of the pancreas increased since July possible pancreatitis. Free fluid around the liver, spleen and within the pelvis of uncertain etiology. Jaya Pearl MD Head CT 09/02/162322 Signed Impressions: Service Date/Time: Saturday, September 03, 2016 01:56 - CONCLUSION: Normal examination. Jaya Pearl MD Chest X-Ray 09/02/162322 Signed Impressions: Service Date/Time: Friday, September 02, 2016 23:32 - CONCLUSION: Normal examination. Jaya eParl MD Procedures Current Medications Medications (Trade) Dose Ordered Sig/Diane Route Start Time Stop Time Status Last Admin (Levophed-Dextrose Drip) 250 ml @ 0 mls/hr TITRATE IV 09/02/16 23:30 (Brethine Inj) 1 mg UNSCH PRN SQ 09/02/16 23:30 (Zofran Inj) 4 mg Q6H PRN IV 09/03/16 01:45 09/04/16 15:41 (Tylenol) 650 mg Q4H PRN PO 09/03/16 01:45 (NS Flush) 2 ml BID IV FLUSH 09/03/16 09:00 09/04/16 20:16 (NS Flush) 2 ml UNSCH PRN IVF 09/03/16 01:45 (Tylenol) 650 mg Q6H PRN PO 09/03/16 03:00 09/04/16 15:16 (Morphine Inj) 2 mg Q2H PRN IV 09/03/16 03:00 09/04/16 17:56 (Protonix Inj) 40 mg Q12H IV 09/03/16 03:00 09/05/16 02:30 (Ativan Inj) 2 mg Q4H PRN IV 09/03/16 03:00 09/04/16 23:30 (Zofran Inj) 4 mg Q6H PRN IV 09/03/16 03:00 (Reglan Inj) 10 mg Q6H PRN IV 09/03/16 03:00 Miscellaneous Information 1 Q361D XX 09/03/16 03:00 (Chlorhexidine 2% Cloth) 3 pack Taper DAILY@04 TOP 09/03/16 04:00 08/30/17 03:59 09/05/16 02:31 (Chlorhexidine 2% Cloth) 3 pack UNSCH PRN TOP 09/03/16 03:00 (Ventolin Hfa Inh) 1 puff Q4H PRN INH 09/03/16 03:00 (Hydrea) 500 mg DAILY PO 09/03/16 09:00 09/04/16 09:28 (Pyridium) 100 mg Q8H PRN PO 09/03/16 03:00 (Restoril) 30 mg HS PRN PO 09/03/16 03:00 09/03/16 20:40 (Desyrel) 50 mg HS PO 09/03/16 21:00 09/04/16 20:15 (Symbicort 80-4.5 Mcg Inh) 2 puff BID INH 09/03/16 09:00 09/04/16 20:16 Amylase/Lipase/ Protease 1 cap 1 cap DAILY PO 09/03/16 09:00 09/04/16 09:06 Levofloxacin/ Dextrose 150 ml @ 100 mls/hr Q24H IV 09/03/16 07:00 09/04/16 05:32 Metronidazole 100 ml @ 100 mls/hr Q8H IV 09/03/16 06:00 09/05/16 05:13 Potassium Chloride 100 ml @ 50 mls/hr Q2H PRN IV 09/03/16 14:00 (KCl 20 Meq Premix Inj) 100 ml @ 50 mls/hr Q2H PRN IV 09/03/16 14:00 Potassium Bicarb/ Potassium Chloride 50 meq 50 meq UNSCH PRN PO 09/03/16 14:00 Potassium Chloride 100 ml @ 25 mls/hr UNSCH PRN IV 09/03/16 14:00 Potassium Chloride 100 ml @ 50 mls/hr Q2H PRN IV 09/03/16 14:00 (Magnesium Sulfate Inj/NS Inj) 100 ml @ 50 mls/hr UNSCH PRN IV 09/03/16 14:00 Magnesium Oxide 800 mg 800 mg UNSCH PRN PO 09/03/16 14:00 (Magnesium Sulfate Inj/NS Inj) 100 ml @ 50 mls/hr UNSCH PRN IV 09/03/16 14:00 09/03/16 20:51 Potassium Phosphate 2000 mg 2,000 mg Q4H PRN PO 09/03/16 14:00 (Sodium Phosphate Inj/NS 250 ml Inj) 250 ml @ 42 mls/hr UNSCH PRN IV 09/03/16 14:00 09/03/16 20:51 Potassium Phosphate 2000 mg 2,000 mg UNSCH PRN PO/TUBE 09/03/16 14:00 Potassium Phosphate 30 mmol/ Sodium Chloride 260 ml @ 42 mls/hr UNSCH PRN IV 09/03/16 14:00 (D5W-NS 1000 ml Inj) 1,000 ml @ 84 mls/hr [id number] IV 09/03/16 15:15 09/05/16 02:31 (Vasotec) 10 mg BID PO 09/04/16 21:00 09/04/16 20:33 (Coreg) 12.5 mg BID PO 09/04/16 21:00 09/04/16 20:15 (Catapres) 0.1 mg Q6H PRN PO 09/04/16 10:15 09/04/16 15:16 (Lyrica) 100 mg Q8HR PO 09/04/16 22:00 09/05/16 05:13 Objective Remarks GENERAL: Lethargic but arousable SKIN: Warm and dry. HEAD: Normocephalic. EYES: No scleral icterus. No injection or drainage. NECK: Supple, trachea midline. No JVD or lymphadenopathy. CARDIOVASCULAR: Regular rate and rhythm without murmurs, gallops, or rubs. RESPIRATORY: Breath sounds equal bilaterally. No accessory muscle use. GASTROINTESTINAL: Abdomen soft, non-tender, nondistended. MUSCULOSKELETAL: No cyanosis, or edema. BACK: Nontender without obvious deformity. No CVA tenderness. Medications and IVs Current Medications Medications (Trade) Dose Ordered Sig/Diane Route Start Time Stop Time Status Last Admin (Levophed-Dextrose Drip) 250 ml @ 0 mls/hr TITRATE IV 09/02/16 23:30 (Brethine Inj) 1 mg UNSCH PRN SQ 09/02/16 23:30 (Zofran Inj) 4 mg Q6H PRN IV 09/03/16 01:45 09/04/16 15:41 (Tylenol) 650 mg Q4H PRN PO 09/03/16 01:45 (NS Flush) 2 ml BID IV FLUSH 09/03/16 09:00 09/04/16 20:16 (NS Flush) 2 ml UNSCH PRN IVF 09/03/16 01:45 (Tylenol) 650 mg Q6H PRN PO 09/03/16 03:00 09/04/16 15:16 (Morphine Inj) 2 mg Q2H PRN IV 09/03/16 03:00 09/04/16 17:56 (Protonix Inj) 40 mg Q12H IV 09/03/16 03:00 09/05/16 02:30 (Ativan Inj) 2 mg Q4H PRN IV 09/03/16 03:00 09/04/16 23:30 (Zofran Inj) 4 mg Q6H PRN IV 09/03/16 03:00 (Reglan Inj) 10 mg Q6H PRN IV 09/03/16 03:00 Miscellaneous Information 1 Q361D XX 09/03/16 03:00 (Chlorhexidine 2% Cloth) 3 pack Taper DAILY@04 TOP 09/03/16 04:00 08/30/17 03:59 09/05/16 02:31 (Chlorhexidine 2% Cloth) 3 pack UNSCH PRN TOP 09/03/16 03:00 (Ventolin Hfa Inh) 1 puff Q4H PRN INH 09/03/16 03:00 (Hydrea) 500 mg DAILY PO 09/03/16 09:00 09/04/16 09:28 (Pyridium) 100 mg Q8H PRN PO 09/03/16 03:00 (Restoril) 30 mg HS PRN PO 09/03/16 03:00 09/03/16 20:40 (Desyrel) 50 mg HS PO 09/03/16 21:00 09/04/16 20:15 (Symbicort 80-4.5 Mcg Inh) 2 puff BID INH 09/03/16 09:00 09/04/16 20:16 Amylase/Lipase/ Protease 1 cap 1 cap DAILY PO 09/03/16 09:00 09/04/16 09:06 Levofloxacin/ Dextrose 150 ml @ 100 mls/hr Q24H IV 09/03/16 07:00 09/04/16 05:32 Metronidazole 100 ml @ 100 mls/hr Q8H IV 09/03/16 06:00 09/05/16 05:13 Potassium Chloride 100 ml @ 50 mls/hr Q2H PRN IV 09/03/16 14:00 (KCl 20 Meq Premix Inj) 100 ml @ 50 mls/hr Q2H PRN IV 09/03/16 14:00 Potassium Bicarb/ Potassium Chloride 50 meq 50 meq UNSCH PRN PO 09/03/16 14:00 Potassium Chloride 100 ml @ 25 mls/hr UNSCH PRN IV 09/03/16 14:00 Potassium Chloride 100 ml @ 50 mls/hr Q2H PRN IV 09/03/16 14:00 (Magnesium Sulfate Inj/NS Inj) 100 ml @ 50 mls/hr UNSCH PRN IV 09/03/16 14:00 Magnesium Oxide 800 mg 800 mg UNSCH PRN PO 09/03/16 14:00 (Magnesium Sulfate Inj/NS Inj) 100 ml @ 50 mls/hr UNSCH PRN IV 09/03/16 14:00 09/03/16 20:51 Potassium Phosphate 2000 mg 2,000 mg Q4H PRN PO 09/03/16 14:00 (Sodium Phosphate Inj/NS 250 ml Inj) 250 ml @ 42 mls/hr UNSCH PRN IV 09/03/16 14:00 09/03/16 20:51 Potassium Phosphate 2000 mg 2,000 mg UNSCH PRN PO/TUBE 09/03/16 14:00 Potassium Phosphate 30 mmol/ Sodium Chloride 260 ml @ 42 mls/hr UNSCH PRN IV 09/03/16 14:00 (D5W-NS 1000 ml Inj) 1,000 ml @ 84 mls/hr [id number] IV 09/03/16 15:15 09/05/16 02:31 (Vasotec) 10 mg BID PO 09/04/16 21:00 09/04/16 20:33 (Coreg) 12.5 mg BID PO 09/04/16 21:00 09/04/16 20:15 (Catapres) 0.1 mg Q6H PRN PO 09/04/16 10:15 09/04/16 15:16 (Lyrica) 100 mg Q8HR PO 09/04/16 22:00 09/05/16 05:13 Assessment and Plan Problem List: (1) Sepsis Status: Acute Plan: ID consulted and managing. On antibiotics. Labs pending (2) Abdominal pain Status: Acute Plan: Abdomen tender to palpation. GI consulted and managing. Recommends IV hydration, antibiotics, and PPI. CT with Long segment colitis involving the descending and sigmoid colon. Low density throughout the head of the pancreas increased since July possible pancreatitis. Free fluid around the liver, spleen and within the pelvis of uncertain etiology. Continue levaquin and flagyl. Ammonia and lipase level normal. ID consulted and general surgery for recommendations PPI Clear liquid diet started (3) Altered mental status Status: Acute Plan: Patient with AMS. Groaning out at times. Head CT with no acute findings. Will monitor could be related to infection and polypharmacy (4) Hypertension, benign Status: Chronic Plan: Patient was initially hypotension when she arrived. Hypertensive yesterday and home blood pressure medication have been resumed. PRN clonidine. Will monitor (5) COPD (chronic obstructive pulmonary disease) Status: Acute Plan: No SOB noted. O2 liters NC Good sats. Continue Symbicort and vent inhaler (6) Chronic pain syndrome Status: Acute Plan: Patient medication as needed. Will need to be weaned (7) Myeloproliferative disease Status: Acute Plan: Continue Hydroxyurea Assessment and Plan Assessment and plan discussed with Dr. Cifuentes Discussed Condition With Nursing Cailin Sorenson Sep 05, 2016 06:52
[2016-09-05] MEDS: RESP: ALBUTEROL 1.25 MG/3 ML NEB (SCH) NEB ×3 (08:00→20:02)
[2016-09-05] MEDS: ENALAPRIL MALEATE 10 MG TAB PO SCH ×2 (09:00→20:41)
[2016-09-05] MEDS: SODIUM CHLORIDE 0.9% FLUSH 10 ML FLUSH IV FLUSH SCH ×2 (09:00→20:41)
[2016-09-05] MEDS: LEVOFLOXACIN 750 MG PREMIX INJ 150 ML IV SCH (09:56)
[2016-09-05] MEDS: ALBUTEROL SULFATE 90 MCG/ACT HFA 18 GM INHALER INH PRN (09:56)
[2016-09-05] MEDS: BUDESONIDE-FORMOTEROL 80/4.5 MCG INHALER INH SCH ×2 (09:57→20:42)
[2016-09-05] MEDS: LIPASE/PROTEASE/AMYLASE (6,000/19,000/30,000) CAP PO SCH (09:57)
[2016-09-05] MEDS: CARVEDILOL 12.5 MG TAB PO SCH ×2 (09:58→20:41)
[2016-09-05] MEDS: HYDROXYUREA 500 MG CAP PO SCH (09:58)
[2016-09-05 10:32] LABS: BASOPHIL % 0.2 % (0.0-2.0); EOSINOPHIL # 0.1 TH/MM3 (0-0.4); EOSINOPHIL % 1.3 % (0.0-4.0); HEMATOCRIT 26.9 % (35.0-46.0); LYMPH % 23.4 % (9.0-44.0); MEAN CELL VOLUME 108.5 FL (80.0-100.0); MEAN CORPUSCULAR HEMOGLOBIN 36.1 PG (27.0-34.0); MEAN CORPUSCULAR HGB CONC 33.3 % (32.0-36.0); MONO % 5.8 % (0.0-8.0); NEUT % 69.3 % (16.0-70.0); PLATELET COUNT 92 TH/MM3 (150-450); RED BLOOD COUNT 2.48 MIL/MM3 (4.00-5.30); RED CELL DISTRIBUTION WIDTH 13.3 % (11.6-17.2); WHITE BLOOD COUNT 8.6 TH/MM3 (4.0-11.0)
[2016-09-05 10:35] LABS: HEMO FLAGS AUTO DIFF
[2016-09-05 11:04] LABS: BICARBONATE 23.7 MEQ/L (21.0-32.0); POTASSIUM 3.6 MEQ/L (3.5-5.1)
[2016-09-05 11:23] LABS: PLATELET ESTIMATE SMEAR LOW (NORMAL); PLATELET MORPHOLOGY NORMAL (NORMAL); SCAN/DIFF AUTO DIFF CONFIRMED
--- NOTE | 2016-09-05 11:51 | HHI.GIFU ---
Subjective Remarks alert NAD wants to go home, hungry Objective Vitals I&O Vital Signs Date Time Temp Pulse Resp B/P Pulse Ox O2 Delivery O2 Flow Rate FiO2 09/05/16 10:00 74 09/05/16 08:29 99 Nasal Cannula 3.00 09/05/16 08:00 82 09/05/16 06:00 76 09/05/16 04:00 98.3 78 20 110/57 98 09/05/16 04:00 78 09/05/16 02:00 81 09/05/16 00:00 98.2 92 20 115/74 100 09/05/16 00:00 92 09/04/16 22:00 84 09/04/16 20:00 98.4 114 22 166/79 97 09/04/16 20:00 114 09/04/16 19:46 99 Nasal Cannula 2.00 09/04/16 18:00 110 09/04/16 17:00 131/59 09/04/16 16:00 98.6 122 29 195/88 97 09/04/16 16:00 122 09/04/16 14:13 20 09/04/16 14:00 121 09/04/16 12:00 109 09/04/16 12:00 98.3 109 22 163/72 97 I/O 09/04/16 09/04/16 09/04/16 09/05/16 09/05/16 09/05/16 07:00 15:00 23:00 07:00 15:00 23:00 Intake Total 1022 ml 1172 ml 1000 ml 832 ml Output Total 600 ml 575 ml 600 ml 300 ml Balance 422 ml 597 ml 400 ml 532 ml Intake Oral 240 ml 300 ml 200 ml IV Total 1022 ml 932 ml 700 ml 632 ml Output Urine Total 600 ml 575 ml 600 ml 300 ml # Bowel Movements 0 0 2 Laboratory Laboratory Tests Test 09/02/16 09/02/16 09/03/16 09/03/16 23:45 23:50 00:04 03:00 White Blood Count 12.1 TH/MM3 (4.0-11.0) Red Blood Count 2.72 MIL/MM3 (4.00-5.30) Hemoglobin 9.9 GM/DL (11.6-15.3) Hematocrit 29.5 % (35.0-46.0) Mean Corpuscular Volume 108.6 FL (80.0-100.0) Mean Corpuscular Hemoglobin 36.4 PG (27.0-34.0) Platelet Count 147 TH/MM3 (150-450) Neutrophils # (Auto) 8.1 TH/MM3 (1.8-7.7) Prothrombin Time 13.3 SEC (9.8-11.6) Sodium Level 150 MEQ/L (136-145) Potassium Level 3.3 MEQ/L (3.5-5.1) Chloride Level 119 MEQ/L (98-107) Calcium Level 6.2 MG/DL (8.5-10.1) Protein Corrected Calcium 7.6 MG/DL (8.5-10.1) Magnesium Level 1.0 MG/DL (1.5-2.5) Alanine Aminotransferase 8 U/L (10-53) (ALT/SGPT) Alkaline Phosphatase 37 U/L (45-117) Troponin I LESS THAN 0.02 LESS THAN 0.02 NG/ML NG/ML (0.02-0.05) (0.02-0.05) Total Protein 4.2 GM/DL (6.4-8.2) Albumin 1.9 GM/DL (3.4-5.0) Urine Turbidity HAZY (CLEAR) Urine Protein 300 mg/dL (NEG-TRACE) Urine Glucose (UA) 70 mg/dL (NEG) Urine RBC 7 /hpf (0-3) Urine WBC 10 /hpf (0-5) Urine Bacteria RARE /hpf (NONE) Urine Mucus FEW /lpf (OCC) Blood Gas HCO3 20 mmol/L (22-26) Blood Gas Base Excess -5.8 mmol/L (-2-2) Blood Gas Oxygen Saturation 89 % (90-100) Arterial Blood pH 7.26 (7.380-7.420) Arterial Blood Partial 46 mmHg (38-42) Pressure CO2 Arterial Blood 4.1 % (0-4) Carboxyhemoglobin Test 09/03/16 09/03/16 09/03/16 09/04/16 08:40 12:48 21:15 05:45 Troponin I LESS THAN 0.02 NG/ML (0.02-0.05) White Blood Count 18.9 TH/MM3 13.1 TH/MM3 (4.0-11.0) (4.0-11.0) Red Blood Count 3.44 MIL/MM3 2.82 MIL/MM3 (4.00-5.30) (4.00-5.30) Mean Corpuscular Volume 107.6 FL 106.8 FL (80.0-100.0) (80.0-100.0) Mean Corpuscular Hemoglobin 35.3 PG 36.8 PG (27.0-34.0) (27.0-34.0) Neutrophils (%) (Auto) 83.3 % 70.8 % (16.0-70.0) (16.0-70.0) Neutrophils # (Auto) 15.8 TH/MM3 9.3 TH/MM3 (1.8-7.7) (1.8-7.7) Monocytes # (Auto) 1.1 TH/MM3 (0-0.9) Neutrophils % (Manual) 81 % (16-70) Band Neutrophils % 13 % (0-6) Lymphocytes % 3 % (9-44) Neutrophils # (Manual) 17.8 TH/MM3 (1.8-7.7) Chloride Level 115 MEQ/L 115 MEQ/L (98-107) (98-107) Estimat Glomerular Filtration 66 ML/MIN (>89) 71 ML/MIN (>89) Rate Random Glucose 130 MG/DL 112 MG/DL (74-106) (74-106) Calcium Level 8.0 MG/DL 7.8 MG/DL (8.5-10.1) (8.5-10.1) Phosphorus Level 2.2 MG/DL (2.5-4.9) Magnesium Level 1.2 MG/DL (1.5-2.5) Total Protein 5.9 GM/DL 5.4 GM/DL (6.4-8.2) (6.4-8.2) Albumin 2.5 GM/DL 2.2 GM/DL (3.4-5.0) (3.4-5.0) Hemoglobin 10.6 GM/DL 10.4 GM/DL (11.6-15.3) (11.6-15.3) Hematocrit 30.9 % 30.1 % (35.0-46.0) (35.0-46.0) Platelet Count 114 TH/MM3 (150-450) Sodium Level 146 MEQ/L (136-145) Aspartate Amino Transf 14 U/L (15-37) (AST/SGOT) Alanine Aminotransferase 8 U/L (10-53) (ALT/SGPT) Alkaline Phosphatase 42 U/L (45-117) Test 09/05/16 10:00 Red Blood Count 2.48 MIL/MM3 (4.00-5.30) Hemoglobin 9.0 GM/DL (11.6-15.3) Hematocrit 26.9 % (35.0-46.0) Mean Corpuscular Volume 108.5 FL (80.0-100.0) Mean Corpuscular Hemoglobin 36.1 PG (27.0-34.0) Platelet Count 92 TH/MM3 (150-450) Platelet Estimate LOW (NORMAL) Sodium Level 147 MEQ/L (136-145) Chloride Level 116 MEQ/L (98-107) Blood Urea Nitrogen 6 MG/DL (7-18) Calcium Level 7.5 MG/DL (8.5-10.1) Laboratory Tests Test 09/02/16 09/02/16 09/03/16 09/03/16 23:45 23:50 00:04 01:40 Prothrombin Time 13.3 SEC Prothromb Time International 1.2 RATIO Ratio Activated Partial 29.6 SEC Thromboplast Time Protein Corrected Calcium 7.6 MG/DL Total Creatine Kinase 61 U/L B-Type Natriuretic Peptide 29 PG/ML Thyroid Stimulating Hormone 0.422 uIU/ML 3rd Gen Urine Color YELLOW Urine Turbidity HAZY Urine pH 8.5 Urine Specific [place] 1.011 Urine Protein 300 mg/dL Urine Glucose (UA) 70 mg/dL Urine Ketones NEG mg/dL Urine Occult Blood NEG Urine Nitrite NEG Urine Bilirubin NEG Urine Urobilinogen LESS THAN 2.0 MG/DL Urine Leukocyte Esterase NEG Urine RBC 7 /hpf Urine WBC 10 /hpf Urine Squamous Epithelial 3 /hpf Cells Urine Bacteria RARE /hpf Urine Mucus FEW /lpf Microscopic Urinalysis Comment CULTURE INDICATED Blood Gas Puncture Site RT RADIAL Blood Gas Patient Temperature 98.6 Blood Gas HCO3 20 mmol/L Blood Gas Base Excess -5.8 mmol/L Blood Gas Oxygen Saturation 89 % Arterial Blood pH 7.26 Arterial Blood Partial 46 mmHg Pressure CO2 Arterial Blood Partial 80 mmHG Pressure O2 Arterial Blood Oxygen Content 17.4 Vol % Arterial Blood 4.1 % Carboxyhemoglobin Arterial Blood Methemoglobin 0.8 % Blood Gas Hemoglobin 13.9 G/DL Oxygen Delivery Device NASAL CANNULA Blood Gas Liter Flow 2 L/M Blood Type O POSITIVE Antibody Screen NEGATIVE Test 09/03/16 09/03/16 09/03/16 09/04/16 08:40 12:48 15:10 05:45 Troponin I LESS THAN 0.02 NG/ML Differential Total Cells 100 Counted Neutrophils % (Manual) 81 % Band Neutrophils % 13 % Lymphocytes % 3 % Monocytes % 3 % Neutrophils # (Manual) 17.8 TH/MM3 Nasal Screen MRSA (PCR) NEGATIVE Lactic Acid Level 1.2 mmol/L Phosphorus Level 3.4 MG/DL Magnesium Level 1.6 MG/DL Total Bilirubin 0.5 MG/DL Aspartate Amino Transf 14 U/L (AST/SGOT) Alanine Aminotransferase 8 U/L (ALT/SGPT) Alkaline Phosphatase 42 U/L Total Protein 5.4 GM/DL Albumin 2.2 GM/DL Test 09/04/16 09/05/16 11:31 10:00 Ammonia 19 MCMOL/L Lipase 86 U/L White Blood Count 8.6 TH/MM3 Red Blood Count 2.48 MIL/MM3 Hemoglobin 9.0 GM/DL Hematocrit 26.9 % Mean Corpuscular Volume 108.5 FL Mean Corpuscular Hemoglobin 36.1 PG Mean Corpuscular Hemoglobin 33.3 % Concent Red Cell Distribution Width 13.3 % Platelet Count 92 TH/MM3 Mean Platelet Volume 9.1 FL Neutrophils (%) (Auto) 69.3 % Lymphocytes (%) (Auto) 23.4 % Monocytes (%) (Auto) 5.8 % Eosinophils (%) (Auto) 1.3 % Basophils (%) (Auto) 0.2 % Neutrophils # (Auto) 6.0 TH/MM3 Lymphocytes # (Auto) 2.0 TH/MM3 Monocytes # (Auto) 0.5 TH/MM3 Eosinophils # (Auto) 0.1 TH/MM3 Basophils # (Auto) 0.0 TH/MM3 CBC Comment AUTO DIFF Differential Comment AUTO DIFF CONFIRMED Platelet Estimate LOW Platelet Morphology Comment NORMAL Sodium Level 147 MEQ/L Potassium Level 3.6 MEQ/L Chloride Level 116 MEQ/L Carbon Dioxide Level 23.7 MEQ/L Anion Gap 7 MEQ/L Blood Urea Nitrogen 6 MG/DL Creatinine 0.54 MG/DL Estimat Glomerular Filtration 113 ML/MIN Rate Random Glucose 99 MG/DL Calcium Level 7.5 MG/DL Laboratory Tests Test 09/05/16 10:00 White Blood Count 8.6 Red Blood Count 2.48 Hemoglobin 9.0 Hematocrit 26.9 Mean Corpuscular Volume 108.5 Mean Corpuscular Hemoglobin 36.1 Mean Corpuscular Hemoglobin 33.3 Concent Red Cell Distribution Width 13.3 Platelet Count 92 Mean Platelet Volume 9.1 Neutrophils (%) (Auto) 69.3 Lymphocytes (%) (Auto) 23.4 Monocytes (%) (Auto) 5.8 Eosinophils (%) (Auto) 1.3 Basophils (%) (Auto) 0.2 Neutrophils # (Auto) 6.0 Lymphocytes # (Auto) 2.0 Monocytes # (Auto) 0.5 Eosinophils # (Auto) 0.1 Basophils # (Auto) 0.0 CBC Comment AUTO DIFF Differential Comment AUTO DIFF CONFIRMED Platelet Estimate LOW Platelet Morphology Comment NORMAL Sodium Level 147 Potassium Level 3.6 Chloride Level 116 Carbon Dioxide Level 23.7 Anion Gap 7 Blood Urea Nitrogen 6 Creatinine 0.54 Estimat Glomerular Filtration 113 Rate Random Glucose 99 Calcium Level 7.5 Date/Time Procedure Status Source Growth 09/02/16 23:50 Urine Culture - Final Complete Urine Clean Catch NO GROWTH IN 48 HOURS. 09/02/16 23:45 Aerobic Blood Culture - Preliminary Resulted Blood Peripheral NO GROWTH IN 3 DAYS 09/02/16 23:45 Anaerobic Blood Culture - Preliminary Resulted Gram Negative Saw Imaging Last Impressions Abdomen/Pelvis CT 09/03/16 0000 Signed Impressions: Service Date/Time: Saturday, September 03, 2016 02:00 - CONCLUSION: Long segment colitis involving the descending and sigmoid colon. Low density throughout the head of the pancreas increased since July possible pancreatitis. Free fluid around the liver, spleen and within the pelvis of uncertain etiology. Jaya Pearl MD Head CT 09/02/162322 Signed Impressions: Service Date/Time: Saturday, September 03, 2016 01:56 - CONCLUSION: Normal examination. Jaya Pearl MD Chest X-Ray 09/02/162322 Signed Impressions: Service Date/Time: Friday, September 02, 2016 23:32 - CONCLUSION: Normal examination. Jaya Pearl MD Physical Exam NECK: Neck is supple, no JVD, no lymphadenopathy. CHEST: Chest is clear to auscultation and percussion. CARDIAC: Regular rate and rhythm with no murmur gallop or rubs. ABDOMEN: Soft, nondistended, nontender; bowel sounds are present in all four quadrants. EXTREMITIES: No clubbing, cyanosis, or edema. SKIN: Normal; no rash; no jaundice. Assessment and Plan Assessment: (1) Abdominal pain (2) Colitis (3) Chest discomfort (4) Pancreatitis, recurrent (5) Sepsis Plan Lipase noted normal ammonia level also normal pt feeling better overall...? mild pancreatitis and or ischemic colitis?? Cont present therapy check stool for c diff... advance to full liquids will follow Problem Qualifiers (1) Sepsis: Qualified Code: A41.9 - Sepsis, due to unspecified organism Nirav Arevalo MD Sep 05, 2016 11:51
[2016-09-05] MEDS: LORazepam 2 MG/ML VIAL IV PRN (11:57)
[2016-09-05] MEDS: MORPHINE SULFATE 4 MG/ML INJ IV PRN ×2 (13:14→17:56)
--- NOTE | 2016-09-05 15:16 | HHI.IDPN ---
Subjective Subjective Remarks is a 66 y/o CF with PMHx of chronic pain secondary to some injuries resulting in neck and back pain. provided most of the history as patient is encephalopathic. Patient sees a pain medicine specialist and is on very significant amounts of narcotics. She also has a history of HTN, COPD, chronic pain, myeloproliferate disorder, AFIB, Heart block, colitis, gastroparesis, pancreatitis, diverticulitis, and metabolic encephalopathy. Patient follows with for GI and for Cardiac issues. Patient reportedly was scheduled for stress test but has not been able to make it to appointments. Patient was seen by me last admission when she was s/b GI and ID and sent home on oral flagyl for diverticulitis and ? cdiff. reports since then patient has been at rehab, admission for cardiac workup and encephalopathy workup. Per patients spouse patient was complaining of abdominal pain, had constipation and given her narcotic use she was given fleets enema. Patient had a BM and became diaphoretic and lethargic. [facility] was called and patient was also found to be hypotension with SBP in the 60's. On palpation patients abdomen is tender. She has been started on antibiotics and GI and ID have been consulted. Patient is currently being managed for pancreatitis and Colitis. Patient was also found to be encephalopathic and a CT head was done which was normal. Patients spouse reports she has had multiple MRIs at and reportedly normal. She also had [facility] at [facility] which showed encephalopathy. Flagyl was DCed for concern of cause for encephalopathy but despite stopping patient continues to be encephalopathic. ID was consulted for evaluation and Mment of elevated WBC, abdominal pain and CT with colitis. Sepsis workup initiated and patient on IV Levaquin and IV Flagyl for presumed infectious colitis. Overnight events reviewed. No fever No rash No diarrhea Antibiotics Levaquin IV Flagyl IV Lines Line sites with no e.o infection Past Medical History reviewed Allergies: Coded Allergies: Bactrim (Verified Allergy, Severe, "VOMITING", 08/15/16) Inderal (Verified Allergy, Severe, "CAUSES ASTHMA ATTACK", 08/15/16) Indocin (Verified Allergy, Severe, "NAUSEA", 08/15/16) Penicillin (Verified Allergy, Severe, "HEART FAILURE", 08/15/16) Procardia (Verified Allergy, Severe, "RAPID HEART BEAT", 08/15/16) states does not have a allergy to this medication Yadi,carlos 08/15/16 Objective . Vital Signs Date Time Temp Pulse Resp B/P Pulse Ox O2 Delivery O2 Flow Rate FiO2 09/05/16 12:00 80 09/05/16 10:00 74 09/05/16 08:29 99 Nasal Cannula 3.00 09/05/16 08:00 82 09/05/16 06:00 76 09/05/16 04:00 98.3 78 20 110/57 98 09/05/16 04:00 78 09/05/16 02:00 81 09/05/16 00:00 98.2 92 20 115/74 100 09/05/16 00:00 92 09/04/16 22:00 84 09/04/16 20:00 98.4 114 22 166/79 97 09/04/16 20:00 114 09/04/16 19:46 99 Nasal Cannula 2.00 09/04/16 18:00 110 09/04/16 17:00 131/59 09/04/16 16:00 98.6 122 29 195/88 97 09/04/16 16:00 122 09/04/16 09/04/16 09/05/16 15:00 23:00 07:00 Intake Total 1172 ml 1000 ml 832 ml Output Total 575 ml 600 ml 300 ml Balance 597 ml 400 ml 532 ml Intake Oral 240 ml 300 ml 200 ml IV Total 932 ml 700 ml 632 ml Output Urine Total 575 ml 600 ml 300 ml # Bowel Movements 0 2 . Laboratory Tests Test 09/03/16 09/04/16 09/05/16 21:15 05:45 10:00 Hemoglobin 10.6 GM/DL 10.4 GM/DL 9.0 GM/DL Hematocrit 30.9 % 30.1 % 26.9 % White Blood Count 13.1 TH/MM3 8.6 TH/MM3 Red Blood Count 2.82 MIL/MM3 2.48 MIL/MM3 Mean Corpuscular Volume 106.8 FL 108.5 FL Mean Corpuscular Hemoglobin 36.8 PG 36.1 PG Mean Corpuscular Hemoglobin 34.4 % 33.3 % Concent Red Cell Distribution Width 13.3 % 13.3 % Platelet Count 114 TH/MM3 92 TH/MM3 Mean Platelet Volume 8.9 FL 9.1 FL Neutrophils (%) (Auto) 70.8 % 69.3 % Lymphocytes (%) (Auto) 22.3 % 23.4 % Monocytes (%) (Auto) 6.6 % 5.8 % Eosinophils (%) (Auto) 0.2 % 1.3 % Basophils (%) (Auto) 0.1 % 0.2 % Neutrophils # (Auto) 9.3 TH/MM3 6.0 TH/MM3 Lymphocytes # (Auto) 2.9 TH/MM3 2.0 TH/MM3 Monocytes # (Auto) 0.9 TH/MM3 0.5 TH/MM3 Eosinophils # (Auto) 0.0 TH/MM3 0.1 TH/MM3 Basophils # (Auto) 0.0 TH/MM3 0.0 TH/MM3 CBC Comment DIFF FINAL AUTO DIFF Differential Comment AUTO DIFF CONFIRMED Platelet Estimate LOW Platelet Morphology Comment NORMAL Laboratory Tests Test 09/03/16 09/04/16 09/04/16 09/05/16 16:40 05:45 11:31 10:00 Phosphorus Level 2.5 MG/DL 3.4 MG/DL Sodium Level 146 MEQ/L 147 MEQ/L Potassium Level 3.6 MEQ/L 3.6 MEQ/L Chloride Level 115 MEQ/L 116 MEQ/L Carbon Dioxide Level 22.9 MEQ/L 23.7 MEQ/L Anion Gap 8 MEQ/L 7 MEQ/L Blood Urea Nitrogen 10 MG/DL 6 MG/DL Creatinine 0.81 MG/DL 0.54 MG/DL Estimat Glomerular Filtration 71 ML/MIN 113 ML/MIN Rate Random Glucose 112 MG/DL 99 MG/DL Lactic Acid Level 1.2 mmol/L Calcium Level 7.8 MG/DL 7.5 MG/DL Magnesium Level 1.6 MG/DL Total Bilirubin 0.5 MG/DL Aspartate Amino Transf 14 U/L (AST/SGOT) Alanine Aminotransferase 8 U/L (ALT/SGPT) Alkaline Phosphatase 42 U/L Total Protein 5.4 GM/DL Albumin 2.2 GM/DL Ammonia 19 MCMOL/L Lipase 86 U/L Microbiology Date/Time Procedure Status Source Growth 09/02/16 23:45 Aerobic Blood Culture - Preliminary Resulted Blood Peripheral Gram Negative Saw 09/02/16 23:45 Anaerobic Blood Culture - Preliminary Resulted Gram Negative Saw 09/02/16 23:45 Aerobic Blood Culture - Preliminary Resulted Blood Peripheral NO GROWTH IN 3 DAYS 4/18/17 23:45 Anaerobic Blood Culture - Preliminary Resulted Blood Peripheral 09/02/16 23:50 Urine Culture - Final Complete Urine Clean Catch NO GROWTH IN 48 HOURS. Imaging Last Impressions Abdomen/Pelvis CT 09/03/16 0000 Signed Impressions: Service Date/Time: Saturday, September 03, 2016 02:00 - CONCLUSION: Long segment colitis involving the descending and sigmoid colon. Low density throughout the head of the pancreas increased since July possible pancreatitis. Free fluid around the liver, spleen and within the pelvis of uncertain etiology. Jaya Pearl MD Head CT 09/02/162322 Signed Impressions: Service Date/Time: Saturday, September 03, 2016 01:56 - CONCLUSION: Normal examination. Jaya Pearl MD Chest X-Ray 09/02/162322 Signed Impressions: Service Date/Time: Friday, September 02, 2016 23:32 - CONCLUSION: Normal examination. Jaya Pearl MD Physical Exam GENERAL: This is a well-nourished, well-developed patient, in no apparent distress. SKIN: No rashes, ecchymoses or lesions. Cool and dry. HEAD: Atraumatic. Normocephalic. No temporal or scalp tenderness. EYES: Pupils equal round and reactive. Extraocular motions intact. No scleral icterus. No injection or drainage. ENT: Nose without bleeding, purulent drainage or septal hematoma. Throat without erythema, tonsillar hypertrophy or exudate. Uvula midline. Airway patent. NECK: Trachea midline. Supple, nontender, no meningeal signs. CARDIOVASCULAR: RRR RESPIRATORY: Clear to auscultation. Breath sounds equal bilaterally. No wheezes , rales, or rhonchi. GASTROINTESTINAL: Abdomen soft, tenderness in all 4 quadrants most pronounced in LLQ and LUQ. MUSCULOSKELETAL: Extremities without clubbing, cyanosis, or edema. No joint tenderness, effusion, or edema noted. No calf tenderness. Negative Homans sign bilaterally. NEUROLOGICAL: Awake and alert but confused. Non focal Psych: cooperative IV line sites with no e.o infection. Assessment & Plan Remarks Possible Sepsis present on admission (hypothermia, elevated WBC, encephalopathy) Colitis: infectious, ischemic (given her cardiac history and Afib), Cdiff Acute pancreatitis Acute metabolic encephalopathy: infection, pain meds. Recs: Continue Levaquin IV Continue Flagyl IV Repeat BCX D.w Micro likely gram negative anaerobe low growth. If diarrhea check Cdiff. Follow cultures Follow clinically. if persistent bacteremia will need endovascular workup. covering for me from 09/06/16 to 09/08/16. Paulina Alfaro MD Sep 05, 2016 15:16
--- NOTE | 2016-09-05 18:09 | HHI.PR ---
Subjective Subjective Notes Sleeping quietly Objective Vitals/I&O Vital Signs Date Time Temp Pulse Resp B/P Pulse Ox O2 Delivery O2 Flow Rate FiO2 09/05/16 12:00 80 09/05/16 08:29 99 Nasal Cannula 3.00 09/05/16 04:00 98.3 20 110/57 09/03/16 16:58 21 Labs Laboratory Tests Test 09/05/16 10:00 White Blood Count 8.6 Red Blood Count 2.48 Hemoglobin 9.0 Hematocrit 26.9 Mean Corpuscular Volume 108.5 Mean Corpuscular Hemoglobin 36.1 Mean Corpuscular Hemoglobin 33.3 Concent Red Cell Distribution Width 13.3 Platelet Count 92 Mean Platelet Volume 9.1 Neutrophils (%) (Auto) 69.3 Lymphocytes (%) (Auto) 23.4 Monocytes (%) (Auto) 5.8 Eosinophils (%) (Auto) 1.3 Basophils (%) (Auto) 0.2 Neutrophils # (Auto) 6.0 Lymphocytes # (Auto) 2.0 Monocytes # (Auto) 0.5 Eosinophils # (Auto) 0.1 Basophils # (Auto) 0.0 CBC Comment AUTO DIFF Differential Comment AUTO DIFF CONFIRMED Platelet Estimate LOW Platelet Morphology Comment NORMAL Sodium Level 147 Potassium Level 3.6 Chloride Level 116 Carbon Dioxide Level 23.7 Anion Gap 7 Blood Urea Nitrogen 6 Creatinine 0.54 Estimat Glomerular Filtration 113 Rate Random Glucose 99 Calcium Level 7.5 Date/Time Procedure Status Source Growth 09/05/16 17:41 Aerobic Blood Culture Received Blood Peripheral Pending 09/05/16 17:41 Anaerobic Blood Culture Received Blood Peripheral Pending 09/02/16 23:50 Urine Culture - Final Complete Urine Clean Catch NO GROWTH IN 48 HOURS. 09/02/16 23:45 Aerobic Blood Culture - Preliminary Resulted Blood Peripheral NO GROWTH IN 3 DAYS 09/02/16 23:45 Anaerobic Blood Culture - Preliminary Resulted Blood Peripheral Abdomen: Non-distended, Non-tender A/P Assessment and Plan Abdominal pain/sepsis/anemia Discussed with and Dr. Arevalo; nothing further to add Will sign off and see as needed. Evan Luna MD Sep 05, 2016 18:09
[2016-09-05] MEDS: TEMAZEPAM 15 MG CAP PO PRN (20:41)
[2016-09-05] MEDS: cloNIDine HCL 0.1 MG TAB PO PRN (20:41)
[2016-09-05] MEDS: traZODone HCL 50 MG TAB PO SCH (20:41)
[2016-09-06] VITALS (11 sets, daily range): BP systolic 103–165; BP diastolic 55–92; PULSE 67–84; RESP 16–25; TEMP 97.2–97.9; O2SAT 94–100
[2016-09-06] MEDS: PANTOPRAZOLE SODIUM 40 MG VIAL IV SCH ×2 (02:48→15:24)
[2016-09-06] MEDS: DEXT 5%-NACL 0.9% 1000 ML INJ 1,000 ML IV SCH ×2 (02:48→15:25)
[2016-09-06] MEDS: MORPHINE SULFATE 4 MG/ML INJ IV PRN ×4 (02:48→20:24)
[2016-09-06] MEDS: CHLORHEXIDINE GLUCONATE 2 % 1 PACK (2 CLOTHS) TOP SCH (02:48)
[2016-09-06] MEDS: LORazepam 2 MG/ML VIAL IV PRN (03:34)
[2016-09-06] MEDS: PREGABALIN 100 MG CAP PO SCH ×3 (06:15→20:23)
[2016-09-06] MEDS: metroNIDAZOLE 500 MG INJ 100 ML IV SCH ×3 (06:15→20:23)
[2016-09-06] MEDS: LEVOFLOXACIN 750 MG PREMIX INJ 150 ML IV SCH (06:15)
[2016-09-06 06:47] LABS: AUTOMATED NEUTROPHIL # 4.7 TH/MM3 (1.8-7.7); BASOPHIL % 0.6 % (0.0-2.0); EOSINOPHIL # 0.1 TH/MM3 (0-0.4); EOSINOPHIL % 1.1 % (0.0-4.0); HEMATOCRIT 30.3 % (35.0-46.0); LYMPH % 25.4 % (9.0-44.0); LYMPHOCYTE # 1.8 TH/MM3 (1.0-4.8); MEAN CELL VOLUME 106.8 FL (80.0-100.0); MEAN CORPUSCULAR HEMOGLOBIN 36.9 PG (27.0-34.0); MEAN CORPUSCULAR HGB CONC 34.5 % (32.0-36.0); MONO % 5.3 % (0.0-8.0); NEUT % 67.6 % (16.0-70.0); PLATELET COUNT 99 TH/MM3 (150-450); RED BLOOD COUNT 2.84 MIL/MM3 (4.00-5.30); RED CELL DISTRIBUTION WIDTH 13.3 % (11.6-17.2); WHITE BLOOD COUNT 6.9 TH/MM3 (4.0-11.0)
[2016-09-06 06:56] LABS: BICARBONATE 23.4 MEQ/L (21.0-32.0); POTASSIUM 3.6 MEQ/L (3.5-5.1)
[2016-09-06 07:20] LABS: HEMO FLAGS AUTO DIFF
[2016-09-06 07:21] LABS: PLATELET ESTIMATE SMEAR LOW (NORMAL); PLATELET MORPHOLOGY NORMAL (NORMAL); SCAN/DIFF AUTO DIFF CONFIRMED
[2016-09-06] MEDS: RESP: ALBUTEROL 1.25 MG/3 ML NEB (SCH) NEB ×5 (08:00→19:52)
[2016-09-06] MEDS: SODIUM CHLORIDE 0.9% FLUSH 10 ML FLUSH IV FLUSH SCH ×2 (09:00→20:24)
--- NOTE | 2016-09-06 09:18 | HHI.IDPN ---
Subjective Subjective Remarks ID COVERAGE Admitted C/O abdominal pain. CT with thickening of descending and sigmoid colon. Has had diarrhea, 2 recorded yesterday, none today. Pain is better, still a little on L side. Also has some haziness in pancreas, but lipase normal Patient sees a pain medicine specialist and is on very significant amounts of narcotics. She also has a history of HTN, COPD, chronic pain, myeloproliferate disorder, AFIB, Heart block, colitis, gastroparesis, pancreatitis, diverticulitis, and metabolic encephalopathy. Patient follows with for GI and for Cardiac issues. ID was consulted for evaluation and Mment of elevated WBC, abdominal pain and CT with colitis. Sepsis workup initiated and patient on IV Levaquin and IV Flagyl for presumed infectious colitis. Temps ok Abdominal pain is better NO BM today WBC down to normal Stool for C diff not done yet BP ok Antibiotics Levaquin IV Flagyl IV Lines Line sites with no e.o infection Past Medical History reviewed Allergies: Coded Allergies: Bactrim (Verified Allergy, Severe, "VOMITING", 08/15/16) Inderal (Verified Allergy, Severe, "CAUSES ASTHMA ATTACK", 08/15/16) Indocin (Verified Allergy, Severe, "NAUSEA", 08/15/16) Penicillin (Verified Allergy, Severe, "HEART FAILURE", 08/15/16) Procardia (Verified Allergy, Severe, "RAPID HEART BEAT", 08/15/16) states does not have a allergy to this medication carlos Grullon 08/15/16 Objective . Vital Signs Date Time Temp Pulse Resp B/P Pulse Ox O2 Delivery O2 Flow Rate FiO2 09/06/16 06:00 70 09/06/16 04:00 73 09/06/16 04:00 97.7 73 18 159/73 95 09/06/16 02:53 22 09/06/16 02:00 67 09/06/16 00:00 68 09/06/16 00:00 97.2 67 16 103/55 97 09/05/16 22:00 72 09/05/16 20:02 99 Nasal Cannula 2.00 09/05/16 20:00 Nasal Cannula 2.00 09/05/16 20:00 97.4 96 23 178/78 99 09/05/16 20:00 91 09/05/16 18:00 88 09/05/16 16:00 98.3 78 17 137/63 98 09/05/16 16:00 86 09/05/16 14:00 77 09/05/16 12:00 98.6 85 19 167/69 96 09/05/16 12:00 80 09/05/16 10:00 74 09/05/16 09/05/16 09/06/16 15:00 23:00 07:00 Intake Total 1170 ml 1097 ml 687 ml Output Total 800 ml 500 ml 500 ml Balance 370 ml 597 ml 187 ml Intake Oral 680 ml 240 ml IV Total 1170 ml 417 ml 447 ml Output Urine Total 800 ml 500 ml 500 ml # Bowel Movements 0 0 . Laboratory Tests Test 09/05/16 09/06/16 10:00 06:03 White Blood Count 8.6 TH/MM3 6.9 TH/MM3 Red Blood Count 2.48 MIL/MM3 2.84 MIL/MM3 Hemoglobin 9.0 GM/DL 10.5 GM/DL Hematocrit 26.9 % 30.3 % Mean Corpuscular Volume 108.5 FL 106.8 FL Mean Corpuscular Hemoglobin 36.1 PG 36.9 PG Mean Corpuscular Hemoglobin 33.3 % 34.5 % Concent Red Cell Distribution Width 13.3 % 13.3 % Platelet Count 92 TH/MM3 99 TH/MM3 Mean Platelet Volume 9.1 FL 9.6 FL Neutrophils (%) (Auto) 69.3 % 67.6 % Lymphocytes (%) (Auto) 23.4 % 25.4 % Monocytes (%) (Auto) 5.8 % 5.3 % Eosinophils (%) (Auto) 1.3 % 1.1 % Basophils (%) (Auto) 0.2 % 0.6 % Neutrophils # (Auto) 6.0 TH/MM3 4.7 TH/MM3 Lymphocytes # (Auto) 2.0 TH/MM3 1.8 TH/MM3 Monocytes # (Auto) 0.5 TH/MM3 0.4 TH/MM3 Eosinophils # (Auto) 0.1 TH/MM3 0.1 TH/MM3 Basophils # (Auto) 0.0 TH/MM3 0.0 TH/MM3 CBC Comment AUTO DIFF AUTO DIFF Differential Comment AUTO DIFF AUTO DIFF CONFIRMED CONFIRMED Platelet Estimate LOW LOW Platelet Morphology Comment NORMAL NORMAL Laboratory Tests Test 09/04/16 09/05/16 09/06/16 11:31 10:00 06:03 Ammonia 19 MCMOL/L Lipase 86 U/L Sodium Level 147 MEQ/L 148 MEQ/L Potassium Level 3.6 MEQ/L 3.6 MEQ/L Chloride Level 116 MEQ/L 118 MEQ/L Carbon Dioxide Level 23.7 MEQ/L 23.4 MEQ/L Anion Gap 7 MEQ/L 7 MEQ/L Blood Urea Nitrogen 6 MG/DL 4 MG/DL Creatinine 0.54 MG/DL 0.52 MG/DL Estimat Glomerular Filtration 113 ML/MIN 118 ML/MIN Rate Random Glucose 99 MG/DL 98 MG/DL Calcium Level 7.5 MG/DL 7.5 MG/DL Microbiology Date/Time Procedure Status Source Growth 09/05/16 17:34 Aerobic Blood Culture Received Blood Peripheral Pending 09/05/16 17:34 Anaerobic Blood Culture Received Blood Peripheral Pending 09/05/16 17:41 Aerobic Blood Culture Received Blood Peripheral Pending 09/05/16 17:41 Anaerobic Blood Culture Received Blood Peripheral Pending Imaging Last Impressions Abdomen/Pelvis CT 09/03/16 0000 Signed Impressions: Service Date/Time: Saturday, September 03, 2016 02:00 - CONCLUSION: Long segment colitis involving the descending and sigmoid colon. Low density throughout the head of the pancreas increased since July possible pancreatitis. Free fluid around the liver, spleen and within the pelvis of uncertain etiology. Jaya Pearl MD Head CT 09/02/16 1717 Signed Impressions: Service Date/Time: Saturday, September 03, 2016 01:56 - CONCLUSION: Normal examination. Jaya Pearl MD Chest X-Ray 09/02/162322 Signed Impressions: Service Date/Time: Friday, September 02, 2016 23:32 - CONCLUSION: Normal examination. Jaya Pearl MD Physical Exam GENERAL: Awake, and alert, not in distress SKIN: No rashes, ecchymoses or lesions. Cool and dry. HEAD: Atraumatic. Normocephalic. No temporal or scalp tenderness. EYES: Pupils equal round and reactive. Extraocular motions intact. No scleral icterus. No injection or drainage. ENT: Nose without bleeding, purulent drainage. Dry oral mucosa. NECK: Trachea midline. Supple, nontender, no meningeal signs. CARDIOVASCULAR: RRR RESPIRATORY: Clear to auscultation. Breath sounds equal bilaterally. No wheezes , rales, or rhonchi. GASTROINTESTINAL: Abdomen soft, not distended, mild tenderness in L side. No guarding, no rebound. NO organomegaly. BS (+) normoactive MUSCULOSKELETAL: Extremities without clubbing, cyanosis, or edema. No joint effusion, or edema noted. No calf tenderness. NEUROLOGICAL: Awake and alert. Non focal Psych: cooperative IV line sites with no e.o infection. Assessment & Plan Remarks Possible Sepsis present on admission (hypothermia, elevated WBC, encephalopathy) - seems better - has GNR in BC no ID yet Colitis: infectious, ischemic (given her cardiac history and Afib), Cdiff Acute pancreatitis (?) Acute metabolic encephalopathy: infection, pain meds. Recs: Continue Levaquin IV Continue Flagyl IV Follow C/S If diarrhea check Cdiff. Follow cultures If persistent bacteremia will need endovascular workup. Monitor progress Spoke with Liberty Wright MD Sep 06, 2016 09:18
[2016-09-06] MEDS: LIPASE/PROTEASE/AMYLASE (6,000/19,000/30,000) CAP PO SCH (09:34)
[2016-09-06] MEDS: HYDROXYUREA 500 MG CAP PO SCH (09:35)
[2016-09-06] MEDS: CARVEDILOL 12.5 MG TAB PO SCH ×2 (09:35→20:23)
[2016-09-06] MEDS: ENALAPRIL MALEATE 10 MG TAB PO SCH ×2 (09:35→20:23)
[2016-09-06] MEDS: BUDESONIDE-FORMOTEROL 80/4.5 MCG INHALER INH SCH ×2 (09:36→20:25)
--- NOTE | 2016-09-06 12:10 | HHI.GIFU ---
Subjective Remarks Alert but confused at bedside GI sxs improved Objective Vitals I&O Vital Signs Date Time Temp Pulse Resp B/P Pulse Ox O2 Delivery O2 Flow Rate FiO2 09/06/16 09:42 97 Nasal Cannula 5.00 09/06/16 07:00 Nasal Cannula 2.00 09/06/16 06:00 70 09/06/16 04:00 73 09/06/16 04:00 97.7 73 18 159/73 95 09/06/16 02:53 22 09/06/16 02:00 67 09/06/16 00:00 68 09/06/16 00:00 97.2 67 16 103/55 97 09/05/16 22:00 72 09/05/16 20:02 99 Nasal Cannula 2.00 09/05/16 20:00 Nasal Cannula 2.00 09/05/16 20:00 97.4 96 23 178/78 99 09/05/16 20:00 91 09/05/16 18:00 88 09/05/16 16:00 98.3 78 17 137/63 98 09/05/16 16:00 86 09/05/16 14:00 77 I/O 09/05/16 09/05/16 09/05/16 09/06/16 09/06/16 09/06/16 07:00 15:00 23:00 07:00 15:00 23:00 Intake Total 832 ml 1170 ml 1097 ml 687 ml Output Total 300 ml 800 ml 500 ml 500 ml Balance 532 ml 370 ml 597 ml 187 ml Intake Oral 200 ml 680 ml 240 ml IV Total 632 ml 1170 ml 417 ml 447 ml Output Urine Total 300 ml 800 ml 500 ml 500 ml # Bowel Movements 2 0 0 Laboratory Laboratory Tests Test 09/06/16 06:03 White Blood Count 6.9 Red Blood Count 2.84 Hemoglobin 10.5 Hematocrit 30.3 Mean Corpuscular Volume 106.8 Mean Corpuscular Hemoglobin 36.9 Mean Corpuscular Hemoglobin 34.5 Concent Red Cell Distribution Width 13.3 Platelet Count 99 Mean Platelet Volume 9.6 Neutrophils (%) (Auto) 67.6 Lymphocytes (%) (Auto) 25.4 Monocytes (%) (Auto) 5.3 Eosinophils (%) (Auto) 1.1 Basophils (%) (Auto) 0.6 Neutrophils # (Auto) 4.7 Lymphocytes # (Auto) 1.8 Monocytes # (Auto) 0.4 Eosinophils # (Auto) 0.1 Basophils # (Auto) 0.0 CBC Comment AUTO DIFF Differential Comment AUTO DIFF CONFIRMED Platelet Estimate LOW Platelet Morphology Comment NORMAL Sodium Level 148 Potassium Level 3.6 Chloride Level 118 Carbon Dioxide Level 23.4 Anion Gap 7 Blood Urea Nitrogen 4 Creatinine 0.52 Estimat Glomerular Filtration 118 Rate Random Glucose 98 Calcium Level 7.5 Date/Time Procedure Status Source Growth 09/05/16 17:41 Aerobic Blood Culture - Preliminary Resulted Blood Peripheral NO GROWTH IN 1 DAY 09/05/16 17:41 Anaerobic Blood Culture - Preliminary Resulted Blood Peripheral NO GROWTH IN 1 DAY 09/02/16 23:50 Urine Culture - Final Complete Urine Clean Catch NO GROWTH IN 48 HOURS. Physical Exam CHEST: Chest is clear to auscultation and percussion. CARDIAC: Regular rate and rhythm with no murmur gallop or rubs. ABDOMEN: Soft, nondistended, nontender; bowel sounds are present in all four quadrants. EXTREMITIES: No clubbing, cyanosis, or edema. 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 continue current therapy advance diet as tolerated Problem Qualifiers (1) Sepsis: Qualified Code: A41.9 - Sepsis, due to unspecified organism Nirav Arevalo MD Sep 06, 2016 12:10
--- NOTE | 2016-09-06 13:20 | HHI.PR ---
Subjective Remarks pt feeling better decreased abd pain Objective Vital Signs Date Time Temp Pulse Resp B/P Pulse Ox O2 Delivery O2 Flow Rate FiO2 09/06/16 09:42 97 Nasal Cannula 5.00 09/06/16 07:00 Nasal Cannula 2.00 09/06/16 06:00 70 09/06/16 04:00 73 09/06/16 04:00 97.7 73 18 159/73 95 09/06/16 02:53 22 09/06/16 02:00 67 09/06/16 00:00 68 09/06/16 00:00 97.2 67 16 103/55 97 09/05/16 22:00 72 09/05/16 20:02 99 Nasal Cannula 2.00 09/05/16 20:00 Nasal Cannula 2.00 09/05/16 20:00 97.4 96 23 178/78 99 09/05/16 20:00 91 09/05/16 18:00 88 09/05/16 16:00 98.3 78 17 137/63 98 09/05/16 16:00 86 09/05/16 14:00 77 I/O 09/05/16 09/05/16 09/05/16 09/06/16 09/06/16 09/06/16 07:00 15:00 23:00 07:00 15:00 23:00 Intake Total 832 ml 1170 ml 1097 ml 687 ml Output Total 300 ml 800 ml 500 ml 500 ml Balance 532 ml 370 ml 597 ml 187 ml Intake Oral 200 ml 680 ml 240 ml IV Total 632 ml 1170 ml 417 ml 447 ml Output Urine Total 300 ml 800 ml 500 ml 500 ml # Bowel Movements 2 0 0 Result Diagram: 09/06/1603 09/06/16602 Procedures Current Medications Medications (Trade) Dose Ordered Sig/Diane Route Start Time Stop Time Status Last Admin (Levophed-Dextrose Drip) 250 ml @ 0 mls/hr TITRATE IV 09/02/16 23:30 (Brethine Inj) 1 mg UNSCH PRN SQ 09/02/16 23:30 (Zofran Inj) 4 mg Q6H PRN IV 09/03/16 01:45 09/04/16 15:41 (Tylenol) 650 mg Q4H PRN PO 09/03/16 01:45 (NS Flush) 2 ml BID IV FLUSH 09/03/16 09:00 09/04/16 20:16 (NS Flush) 2 ml UNSCH PRN IVF 09/03/16 01:45 (Tylenol) 650 mg Q6H PRN PO 09/03/16 03:00 09/04/16 15:16 (Morphine Inj) 2 mg Q2H PRN IV 09/03/16 03:00 09/04/16 17:56 (Protonix Inj) 40 mg Q12H IV 09/03/16 03:00 09/05/16 02:30 (Ativan Inj) 2 mg Q4H PRN IV 09/03/16 03:00 09/04/16 23:30 (Zofran Inj) 4 mg Q6H PRN IV 09/03/16 03:00 (Reglan Inj) 10 mg Q6H PRN IV 09/03/16 03:00 Miscellaneous Information 1 [id number] XX 09/03/16 03:00 (Chlorhexidine 2% Cloth) 3 pack Taper DAILY@04 TOP 09/03/16 04:00 08/30/17 03:59 09/05/16 02:31 (Chlorhexidine 2% Cloth) 3 pack UNSCH PRN TOP 09/03/16 03:00 (Ventolin Hfa Inh) 1 puff Q4H PRN INH 09/03/16 03:00 (Hydrea) 500 mg DAILY PO 09/03/16 09:00 09/04/16 09:28 (Pyridium) 100 mg Q8H PRN PO 09/03/16 03:00 (Restoril) 30 mg HS PRN PO 09/03/16 03:00 09/03/16 20:40 (Desyrel) 50 mg HS PO 09/03/16 21:00 09/04/16 20:15 (Symbicort 80-4.5 Mcg Inh) 2 puff BID INH 09/03/16 09:00 09/04/16 20:16 Amylase/Lipase/ Protease 1 cap 1 cap DAILY PO 09/03/16 09:00 09/04/16 09:06 Levofloxacin/ Dextrose 150 ml @ 100 mls/hr Q24H IV 09/03/16 07:00 09/04/16 05:32 Metronidazole 100 ml @ 100 mls/hr Q8H IV 09/03/16 06:00 09/05/16 05:13 Potassium Chloride 100 ml @ 50 mls/hr Q2H PRN IV 09/03/16 14:00 (KCl 20 Meq Premix Inj) 100 ml @ 50 mls/hr Q2H PRN IV 09/03/16 14:00 Potassium Bicarb/ Potassium Chloride 50 meq 50 meq UNSCH PRN PO 09/03/16 14:00 Potassium Chloride 100 ml @ 25 mls/hr UNSCH PRN IV 09/03/16 14:00 Potassium Chloride 100 ml @ 50 mls/hr Q2H PRN IV 09/03/16 14:00 (Magnesium Sulfate Inj/NS Inj) 100 ml @ 50 mls/hr UNSCH PRN IV 09/03/16 14:00 Magnesium Oxide 800 mg 800 mg UNSCH PRN PO 09/03/16 14:00 (Magnesium Sulfate Inj/NS Inj) 100 ml @ 50 mls/hr UNSCH PRN IV 09/03/16 14:00 09/03/16 20:51 Potassium Phosphate 2000 mg 2,000 mg Q4H PRN PO 09/03/16 14:00 (Sodium Phosphate Inj/NS 250 ml Inj) 250 ml @ 42 mls/hr UNSCH PRN IV 09/03/16 14:00 09/03/16 20:51 Potassium Phosphate 2000 mg 2,000 mg UNSCH PRN PO/TUBE 09/03/16 14:00 Potassium Phosphate 30 mmol/ Sodium Chloride 260 ml @ 42 mls/hr UNSCH PRN IV 09/03/16 14:00 (D5W-NS 1000 ml Inj) 1,000 ml @ 84 mls/hr [id number] IV 09/03/16 15:15 09/05/16 02:31 (Vasotec) 10 mg BID PO 09/04/16 21:00 09/04/16 20:33 (Coreg) 12.5 mg BID PO 09/04/16 21:00 09/04/16 20:15 (Catapres) 0.1 mg Q6H PRN PO 09/04/16 10:15 09/04/16 15:16 (Lyrica) 100 mg Q8HR PO 09/04/16 22:00 09/05/16 05:13 Objective Remarks GENERAL: SKIN: Warm and dry. HEAD: Normocephalic. EYES: No scleral icterus. No injection or drainage. NECK: Supple, trachea midline. No JVD or lymphadenopathy. CARDIOVASCULAR: Regular rate and rhythm without murmurs, gallops, or rubs. RESPIRATORY: Breath sounds equal bilaterally. No accessory muscle use. GASTROINTESTINAL: Abdomen soft, only minimal tenderness -tender, nondistended. MUSCULOSKELETAL: No cyanosis, or edema. BACK: Nontender without obvious deformity. No CVA tenderness. Assessment and Plan Problem List: (1) Colitis Status: Acute Plan: pt improved ok to transfer to med surg floor Assessment and Plan colitis transfer to med surg Discussed Condition With Mj Cifuentes Sep 06, 2016 13:20
[2016-09-06] MEDS: cloNIDine HCL 0.1 MG TAB PO PRN (18:41)
[2016-09-06] MEDS: traZODone HCL 50 MG TAB PO SCH (20:23)
[2016-09-06] MEDS: TEMAZEPAM 15 MG CAP PO PRN (23:05)
[2016-09-07] VITALS (10 sets, daily range): BP systolic 159–199; BP diastolic 75–103; PULSE 70–92; RESP 17–20; TEMP 97.4–97.6; O2SAT 97–100
[2016-09-07] MEDS: LORazepam 2 MG/ML VIAL IV PRN ×4 (00:57→21:24)
[2016-09-07] MEDS: MORPHINE SULFATE 4 MG/ML INJ IV PRN ×3 (00:58→16:00)
[2016-09-07] MEDS: DEXT 5%-NACL 0.9% 1000 ML INJ 1,000 ML IV SCH ×2 (02:40→14:35)
[2016-09-07] MEDS: PANTOPRAZOLE SODIUM 40 MG VIAL IV SCH ×2 (03:48→15:48)
[2016-09-07] MEDS: CHLORHEXIDINE GLUCONATE 2 % 1 PACK (2 CLOTHS) TOP SCH (03:49)
[2016-09-07] MEDS: PREGABALIN 100 MG CAP PO SCH ×3 (05:04→21:23)
[2016-09-07] MEDS: cloNIDine HCL 0.1 MG TAB PO PRN ×2 (05:04→17:03)
[2016-09-07] MEDS: metroNIDAZOLE 500 MG INJ 100 ML IV SCH ×2 (05:05→15:48)
[2016-09-07 06:40] LABS: AUTOMATED NEUTROPHIL # 2.7 TH/MM3 (1.8-7.7); BASOPHIL % 0.3 % (0.0-2.0); EOSINOPHIL # 0.1 TH/MM3 (0-0.4); EOSINOPHIL % 2.2 % (0.0-4.0); HEMO FLAGS DIFF FINAL; LYMPH % 35.7 % (9.0-44.0); LYMPHOCYTE # 1.7 TH/MM3 (1.0-4.8); MEAN CELL VOLUME 106.2 FL (80.0-100.0); MEAN CORPUSCULAR HEMOGLOBIN 36.9 PG (27.0-34.0); MEAN CORPUSCULAR HGB CONC 34.7 % (32.0-36.0); MONO % 6.1 % (0.0-8.0); NEUT % 55.7 % (16.0-70.0); PLATELET COUNT 110 TH/MM3 (150-450); RED BLOOD COUNT 2.54 MIL/MM3 (4.00-5.30); RED CELL DISTRIBUTION WIDTH 12.7 % (11.6-17.2); WHITE BLOOD COUNT 4.8 TH/MM3 (4.0-11.0)
[2016-09-07] MEDS: LEVOFLOXACIN 750 MG PREMIX INJ 150 ML IV SCH (06:58)
[2016-09-07 07:07] LABS: BICARBONATE 23.7 MEQ/L (21.0-32.0)
[2016-09-07] MEDS: RESP: ALBUTEROL 1.25 MG/3 ML NEB (SCH) NEB (07:25)
[2016-09-07 07:34] LABS: CALCIUM-PROTEIN CORRECTED 8.8 MG/DL (8.5-10.1)
[2016-09-07] MEDS: CARVEDILOL 12.5 MG TAB PO SCH ×2 (08:40→21:24)
[2016-09-07] MEDS: ENALAPRIL MALEATE 10 MG TAB PO SCH ×2 (08:41→21:24)
[2016-09-07] MEDS: LIPASE/PROTEASE/AMYLASE (6,000/19,000/30,000) CAP PO SCH (08:41)
[2016-09-07] MEDS: SODIUM CHLORIDE 0.9% FLUSH 10 ML FLUSH IV FLUSH SCH ×2 (08:42→21:23)
[2016-09-07] MEDS: BUDESONIDE-FORMOTEROL 80/4.5 MCG INHALER INH SCH ×2 (08:42→21:27)
[2016-09-07] MEDS: HYDROXYUREA 500 MG CAP PO SCH (08:42)
[2016-09-07] MEDS: BETHANECHOL CHL 25 MG TAB PO SCH ×3 (08:43→17:01)
--- NOTE | 2016-09-07 10:10 | HHI.PR ---
Subjective Remarks pt feeling better decreased abd pain with bethanecol and zofran pp Objective Vital Signs Date Time Temp Pulse Resp B/P Pulse Ox O2 Delivery O2 Flow Rate FiO2 09/07/16 07:49 97.5 73 17 159/90 98 09/07/16 07:25 98 Nasal Cannula 2.00 09/07/16 06:14 70 09/07/16 04:00 97.6 78 20 190/83 97 09/06/16 22:49 Nasal Cannula 2.00 09/06/16 22:49 97.7 84 20 165/92 98 09/06/16 20:28 100 Nasal Cannula 2.00 09/06/16 20:00 95 Nasal Cannula 2.00 09/06/16 20:00 80 09/06/16 20:00 97.9 80 20 160/77 95 09/06/16 16:00 97.2 81 20 164/72 94 09/06/16 12:00 97.4 79 25 97 I/O 09/06/16 09/06/16 09/06/16 09/07/16 09/07/16 09/07/16 07:00 15:00 23:00 07:00 15:00 23:00 Intake Total 687 ml 1360 ml 1134 ml 735 ml Output Total 500 ml 1000 ml 750 ml Balance 187 ml 360 ml 384 ml 735 ml Intake Oral 240 ml 600 ml 480 ml IV Total 447 ml 760 ml 654 ml 735 ml Output Urine Total 500 ml 1000 ml 750 ml # Bowel Movements 0 3 1 Result Diagram: 09/07/16 0554 09/07/16 0554 Procedures Current Medications Medications (Trade) Dose Ordered Sig/Diane Route Start Time Stop Time Status Last Admin (Levophed-Dextrose Drip) 250 ml @ 0 mls/hr TITRATE IV 09/02/16 23:30 (Brethine Inj) 1 mg UNSCH PRN SQ 09/02/16 23:30 (Zofran Inj) 4 mg Q6H PRN IV 09/03/16 01:45 09/04/16 15:41 (Tylenol) 650 mg Q4H PRN PO 09/03/16 01:45 (NS Flush) 2 ml BID IV FLUSH 09/03/16 09:00 09/04/16 20:16 (NS Flush) 2 ml UNSCH PRN IVF 09/03/16 01:45 (Tylenol) 650 mg Q6H PRN PO 09/03/16 03:00 09/04/16 15:16 (Morphine Inj) 2 mg Q2H PRN IV 09/03/16 03:00 09/04/16 17:56 (Protonix Inj) 40 mg Q12H IV 09/03/16 03:00 09/05/16 02:30 (Ativan Inj) 2 mg Q4H PRN IV 09/03/16 03:00 09/04/16 23:30 (Zofran Inj) 4 mg Q6H PRN IV 09/03/16 03:00 (Reglan Inj) 10 mg Q6H PRN IV 09/03/16 03:00 Miscellaneous Information 1 Q361D XX 09/03/16 03:00 (Chlorhexidine 2% Cloth) 3 pack Taper DAILY@04 TOP 09/03/16 04:00 08/30/17 03:59 09/05/16 02:31 (Chlorhexidine 2% Cloth) 3 pack UNSCH PRN TOP 09/03/16 03:00 (Ventolin Hfa Inh) 1 puff Q4H PRN INH 09/03/16 03:00 (Hydrea) 500 mg DAILY PO 09/03/16 09:00 09/04/16 09:28 (Pyridium) 100 mg Q8H PRN PO 09/03/16 03:00 (Restoril) 30 mg HS PRN PO 09/03/16 03:00 09/03/16 20:40 (Desyrel) 50 mg HS PO 09/03/16 21:00 09/04/16 20:15 (Symbicort 80-4.5 Mcg Inh) 2 puff BID INH 09/03/16 09:00 09/04/16 20:16 Amylase/Lipase/ Protease 1 cap 1 cap DAILY PO 09/03/16 09:00 09/04/16 09:06 Levofloxacin/ Dextrose 150 ml @ 100 mls/hr Q24H IV 09/03/16 07:00 09/04/16 05:32 Metronidazole 100 ml @ 100 mls/hr Q8H IV 09/03/16 06:00 09/05/16 05:13 Potassium Chloride 100 ml @ 50 mls/hr Q2H PRN IV 09/03/16 14:00 (KCl 20 Meq Premix Inj) 100 ml @ 50 mls/hr Q2H PRN IV 09/03/16 14:00 Potassium Bicarb/ Potassium Chloride 50 meq 50 meq UNSCH PRN PO 09/03/16 14:00 Potassium Chloride 100 ml @ 25 mls/hr UNSCH PRN IV 09/03/16 14:00 Potassium Chloride 100 ml @ 50 mls/hr Q2H PRN IV 09/03/16 14:00 (Magnesium Sulfate Inj/NS Inj) 100 ml @ 50 mls/hr UNSCH PRN IV 09/03/16 14:00 Magnesium Oxide 800 mg 800 mg UNSCH PRN PO 09/03/16 14:00 (Magnesium Sulfate Inj/NS Inj) 100 ml @ 50 mls/hr UNSCH PRN IV 09/03/16 14:00 09/03/16 20:51 Potassium Phosphate 2000 mg 2,000 mg Q4H PRN PO 09/03/16 14:00 (Sodium Phosphate Inj/NS 250 ml Inj) 250 ml @ 42 mls/hr UNSCH PRN IV 09/03/16 14:00 09/03/16 20:51 Potassium Phosphate 2000 mg 2,000 mg UNSCH PRN PO/TUBE 09/03/16 14:00 Potassium Phosphate 30 mmol/ Sodium Chloride 260 ml @ 42 mls/hr UNSCH PRN IV 09/03/16 14:00 (D5W-NS 1000 ml Inj) 1,000 ml @ 84 mls/hr [id number] IV 09/03/16 15:15 09/05/16 02:31 (Vasotec) 10 mg BID PO 09/04/16 21:00 09/04/16 20:33 (Coreg) 12.5 mg BID PO 09/04/16 21:00 09/04/16 20:15 (Catapres) 0.1 mg Q6H PRN PO 09/04/16 10:15 09/04/16 15:16 (Lyrica) 100 mg Q8HR PO 09/04/16 22:00 09/05/16 05:13 Objective Remarks GENERAL: SKIN: Warm and dry. HEAD: Normocephalic. EYES: No scleral icterus. No injection or drainage. NECK: Supple, trachea midline. No JVD or lymphadenopathy. CARDIOVASCULAR: Regular rate and rhythm without murmurs, gallops, or rubs. RESPIRATORY: Breath sounds equal bilaterally. No accessory muscle use. GASTROINTESTINAL: Abdomen soft, only minimal tenderness -tender, nondistended. MUSCULOSKELETAL: No cyanosis, or edema. BACK: Nontender without obvious deformity. No CVA tenderness. Medications and IVs Inpatient Medications Acetaminophen (Tylenol) 650 mg Q6H PRN PO PAIN 1-10 AND/OR FEVER >101F Last administered on 09/04/16 15:16; Start 09/03/16 at 03:00 Albuterol Sulfate (Ventolin Hfa Inh) 1 puff Q4H PRN INH SHORTNESS OF BREATH Last administered on 09/05/16 09:56; Start 09/03/16 at 03:00 Albuterol Sulfate 1.25 mg 1.25 mg QID NEB NEB Last administered on 09/07/16 07:25; Start 09/03/16 at 12:00 Albuterol/ Ipratropium (Duoneb Neb) 1 ampule Q2HR NEB PRN INH WHEEZING; Start 09/03/16 at 03:00 Amylase/Lipase/ Protease 1 cap 1 cap DAILY PO Digestive Aid Last administered on 09/07/16 08:41; Start 09/03/16 at 09:00 Aztreonam 1000 mg/ Sodium Chloride 100 ml @ 200 mls/hr ONCE ONCE IV Last administered on 09/02/16 23:45; Start 09/02/16 at 23:45; Stop 09/03/16 at 00:14 ; Status DC Bethanechol Chloride (Urecholine) 25 mg TIDAC PO Last administered on 08:43; Start 09/07/16 at 08:00 Budesonide/ Formoterol Fumarate (Symbicort 80-4.5 Mcg Inh) 2 puff BID INH Last administered on 09/07/16 08:42; Start 09/03/16 at 09:00 Carvedilol (Coreg) 12.5 mg BID PO Last administered on 09/07/16 08:40; Start 09/04/16 at 21:00 Chlorhexidine Gluconate (Chlorhexidine 2% Cloth) 3 pack UNSCH PRN TOP HYGIENIC CARE; Start 09/03/16 at 03:00 Clonidine (Catapres) 0.1 mg Q6H PRN PO SYS BP GREATER THAN 160 MMHG Last administered on 09/07/16 05:04; Start 09/04/16 at 10:15 Dextrose/Sodium Chloride (D5W-NS 1000 ml Inj) 1,000 ml @ 84 mls/hr [id number] IV Last administered on 09/06/16 15:25; Start 09/03/16 at 15:15 Enalapril Maleate (Vasotec) 10 mg BID PO Last administered on 09/07/16 08:41; Start 09/04/16 at 21:00 Hydroxyurea (Hydrea) 500 mg DAILY PO Last administered on 09/07/16 08:42; Start 09/03/16 at 09:00 Levofloxacin/ Dextrose 150 ml @ 100 mls/hr Q24H IV Last administered on 06:58; Start 09/03/16 at 07:00 Lorazepam (Ativan Inj) 2 mg Q4H PRN IV Agitation/Sedation Last administered on 09/07/16 00:57; Start 09/03/16 at 03:00 Magnesium Oxide 800 mg 800 mg UNSCH PRN PO For Magnesium 1.2 - 1.6 mg/dL; Start 09/03/16 at 14:00; Stop 09/06/16 at 22:31; Status DC Magnesium Sulfate 2 gm/Sodium Chloride 100 ml @ 50 mls/hr UNSCH PRN IV For Magnesium 1.2 - 1.6 mg/dL Last administered on 09/03/16 20:51; Start 09/03/16 at 14:00; Stop 09/06/16 at 22:31; Status DC Magnesium Sulfate/ Sodium Chloride (Magnesium Sulfate Inj/NS Inj) 100 ml @ 50 mls/hr UNSCH PRN IV For Magnesium 0.9 - 1.1 mg/dL; Start 09/03/16 at 14:00; Stop 09/06/16 at 22:31; Status DC Metoclopramide HCl (Reglan Inj) 10 mg Q6H PRN IV NAUSEA OR VOMITING; Start at 03:00 Metronidazole (Flagyl 500 Mg Inj) 100 ml @ 100 mls/hr Q8H IV Last administered on 09/07/16 05:05; Start 09/03/16 at 06:00 Miscellaneous Information 1 Q361D XX ; Start 09/03/16 at 03:00 Morphine Sulfate (Morphine Inj) 2 mg ONCE ONCE IV PUSH Last administered on 06:00; Start 09/03/16 at 06:00; Stop 09/03/16 at 06:01; Status DC Non-Formulary Medication 0.63 mg QID INH BTX; Start 09/03/16 at 09:00; Stop at 11:26; Status DC Norepinephrine Bitartrate (Levophed-Dextrose Drip) 250 ml @ 0 mls/hr TITRATE IV ; Start 09/02/16 at 23:30; Stop 09/06/16 at 22:31; Status DC Ondansetron HCl (Zofran Odt) 8 mg TID PRN PO NAUSEA OR VOMITING; Start at 18:15 Ondansetron HCl (Zofran Inj) 4 mg Q6H PRN IV NAUSEA OR VOMITING; Start at 03:00; Stop 09/06/16 at 18:08; Status DC Pantoprazole Sodium (Protonix Inj) 40 mg Q12H IV Last administered on 03:48; Start 09/03/16 at 03:00 Pantoprazole Sodium 80 mg/ Sodium Chloride 100 ml @ 10 mls/hr Q10H IV Last administered on 09/03/16 13:10; Start 09/03/16 at 01:30; Stop 09/03/16 at 15:50 ; Status DC Phenazopyridine HCl (Pyridium) 100 mg Q8H PRN PO DYSURIA; Start 09/03/16 at 03: 00 Potassium Chloride/Sodium Chloride (NS + KCl 20 Meq Inj) 1,000 ml @ 125 mls/hr Q8H IV Last administered on 09/03/16 10:39; Start 09/03/16 at 01:45; Stop at 15:05; Status DC Potassium Phosphate 2000 mg 2,000 mg UNSCH PRN PO/TUBE SEE LABEL COMMENTS; Start 09/03/16 at 14:00; Stop 09/06/16 at 22:31; Status DC Potassium Phosphate 30 mmol/ Sodium Chloride 260 ml @ 42 mls/hr UNSCH PRN IV SEE LABEL COMMENTS; Start 09/03/16 at 14:00; Stop 09/06/16 at 22:31; Status DC Potassium Bicarb/ Potassium Chloride 50 meq 50 meq UNSCH PRN PO For Potassium 3.3 - 3.5 mEq/L; Start 09/03/16 at 14:00; Stop 09/06/16 at 22:31; Status DC Potassium Chloride 100 ml @ 50 mls/hr Q2H PRN IV For Potassium 3.3 - 3.5 mEq/L ; Start 09/03/16 at 14:00; Stop 09/06/16 at 22:31; Status DC Potassium Chloride (KCl 20 Meq Premix Inj) 100 ml @ 50 mls/hr Q2H PRN IV For Potassium 2.8 - 3.2 mEq/L; Start 09/03/16 at 14:00; Stop 09/06/16 at 22:31; Status DC Pregabalin (Lyrica) 100 mg Q8HR PO Last administered on 09/07/16 05:04; Start 09/04/16 at 22:00 Sodium Chloride (NS 1000 ml Inj) 1,000 ml @ 84 mls/hr [id number] IV ; Start at 02:52; Stop 09/03/16 at 15:51; Status DC Sodium Chloride (NS Flush) 2 ml BID IV FLUSH Last administered on 09/07/16 08: 42; Start 09/03/16 at 09:00 Sodium Chloride 2 ml 2 ml UNSCH PRN IVF FLUSH AFTER USING IV ACCESS; Start at 01:45 Sodium Phosphate/ Sodium Chloride (Sodium Phosphate Inj/NS 250 ml Inj) 250 ml @ 42 mls/hr UNSCH PRN IV For Phosphorus < 2.5 mg/dL Last administered on 20:51; Start 09/03/16 at 14:00; Stop 09/06/16 at 22:31; Status DC Temazepam (Restoril) 30 mg HS PRN PO INSOMNIA Last administered on 09/06/16 23 :05; Start 09/03/16 at 03:00 Terbutaline Sulfate 1 mg 1 mg UNSCH PRN SQ For Extravasation; Start 09/02/16 at 23:30 Trazodone HCl (Desyrel) 50 mg HS PO Last administered on 09/06/16 20:23; Start 09/03/16 at 21:00 Vancomycin HCl 1000 mg/Sodium Chloride 250 ml @ 250 mls/hr ONCE ONCE IV Last administered on 09/02/16t 23:45; Start 09/02/16 at 23:45; Stop 09/03/16 at 00:44 ; Status DC Assessment and Plan Problem List: (1) Colitis Status: Acute Plan: pt improved ok to transfer to med surg floor Assessment and Plan colitis transfer to med surg sepsis improved gastroporesis improved will dc darrel and have pt ambulate Discussed Condition With patient and Mj Cifuentes DO Sep 07, 2016 10:10
--- NOTE | 2016-09-07 11:03 | HHI.GIFU ---
Subjective Remarks ALERT EATING SMALL AMOUMTS NAD CONFUSED Objective Vitals I&O Vital Signs Date Time Temp Pulse Resp B/P Pulse Ox O2 Delivery O2 Flow Rate FiO2 09/07/16 07:49 97.5 73 17 159/90 98 09/07/16 07:25 98 Nasal Cannula 2.00 09/07/16 06:14 70 09/07/16 04:00 97.6 78 20 190/83 97 09/06/16 22:49 Nasal Cannula 2.00 09/06/16 22:49 97.7 84 20 165/92 98 09/06/16 20:28 100 Nasal Cannula 2.00 09/06/16 20:00 95 Nasal Cannula 2.00 09/06/16 20:00 80 09/06/16 20:00 97.9 80 20 160/77 95 09/06/16 16:00 97.2 81 20 164/72 94 09/06/16 12:00 97.4 79 25 97 I/O 09/06/16 09/06/16 09/06/16 09/07/16 09/07/16 09/07/16 07:00 15:00 23:00 07:00 15:00 23:00 Intake Total 687 ml 1360 ml 1134 ml 735 ml Output Total 500 ml 1000 ml 750 ml 1200 ml Balance 187 ml 360 ml 384 ml 735 ml -1200 ml Intake Oral 240 ml 600 ml 480 ml IV Total 447 ml 760 ml 654 ml 735 ml Output Urine Total 500 ml 1000 ml 750 ml 1200 ml # Bowel Movements 0 3 1 Laboratory Laboratory Tests Test 09/07/16 05:54 White Blood Count 4.8 Red Blood Count 2.54 Hemoglobin 9.4 Hematocrit 27.0 Mean Corpuscular Volume 106.2 Mean Corpuscular Hemoglobin 36.9 Mean Corpuscular Hemoglobin 34.7 Concent Red Cell Distribution Width 12.7 Platelet Count 110 Mean Platelet Volume 8.9 Neutrophils (%) (Auto) 55.7 Lymphocytes (%) (Auto) 35.7 Monocytes (%) (Auto) 6.1 Eosinophils (%) (Auto) 2.2 Basophils (%) (Auto) 0.3 Neutrophils # (Auto) 2.7 Lymphocytes # (Auto) 1.7 Monocytes # (Auto) 0.3 Eosinophils # (Auto) 0.1 Basophils # (Auto) 0.0 CBC Comment DIFF FINAL Differential Comment Sodium Level 146 Potassium Level 3.0 Chloride Level 115 Carbon Dioxide Level 23.7 Anion Gap 7 Blood Urea Nitrogen 3 Creatinine 0.55 Estimat Glomerular Filtration 110 Rate Random Glucose 101 Calcium Level 7.4 Protein Corrected Calcium 8.8 Total Protein 4.7 Date/Time Procedure Status Source Growth 09/05/16 17:41 Aerobic Blood Culture - Preliminary Resulted Blood Peripheral NO GROWTH IN 1 DAY 09/05/16 17:41 Anaerobic Blood Culture - Preliminary Resulted Blood Peripheral NO GROWTH IN 1 DAY 09/02/16 23:50 Urine Culture - Final Complete Urine Clean Catch NO GROWTH IN 48 HOURS. Imaging Last Impressions Abdomen/Pelvis CT 09/03/16 0000 Signed Impressions: Service Date/Time: Saturday, September 03, 2016 02:00 - CONCLUSION: Long segment colitis involving the descending and sigmoid colon. Low density throughout the head of the pancreas increased since July possible pancreatitis. Free fluid around the liver, spleen and within the pelvis of uncertain etiology. Jaya Pearl MD Head CT 09/02/162322 Signed Impressions: Service Date/Time: Saturday, September 03, 2016 01:56 - CONCLUSION: Normal examination. Jaya Pearl MD Chest X-Ray 09/02/162322 Signed Impressions: Service Date/Time: Friday, September 02, 2016 23:32 - CONCLUSION: Normal examination. Jaya Pearl MD Physical Exam CHEST: Chest is clear to auscultation and percussion. CARDIAC: Regular rate and rhythm with no murmur gallop or rubs. ABDOMEN: Soft, nondistended, nontender; bowel sounds are present in all four quadrants. EXTREMITIES: No clubbing, cyanosis, or edema. 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
[2016-09-07 11:20] LABS: BACTERIA, URINE RARE /hpf; BLOOD, URINE NEG (NEG); GLUCOSE,URINE NEG (NEG); KETONE, URINE NEG (NEG); NITRITE,URINE NEG (NEG); PH, URINE 6.5 (5.0-8.5); SQUAMOUS EPITHELIAL CELL URINE 8 /hpf (0-5); TRANSITIONAL EPI CELLS, URINE <1 /hpf; URINE COLOR LIGHT-YELLOW (YELLW/STRAW)
[2016-09-07 11:32] LABS: COMMENT (UR) CATH-CULTURE IND; CULTURE IF INDICATED CATH CULTURE IND
[2016-09-07] MEDS: RESP: ALBUTEROL 2.5 MG/IPRATROPIUM 0.5 MG NEB (PRN) INH (15:55)
[2016-09-07] MEDS: traZODone HCL 50 MG TAB PO SCH (21:24)
[2016-09-07] MEDS: metroNIDAZOLE 500 MG TAB PO SCH (21:24)
[2016-09-07] MEDS: TEMAZEPAM 15 MG CAP PO PRN (21:24)
[2016-09-08] VITALS (10 sets, daily range): BP systolic 152–186; BP diastolic 71–93; PULSE 81–93; RESP 18–20; TEMP 97.3–97.8; O2SAT 95–99
[2016-09-08] MEDS: CHLORHEXIDINE GLUCONATE 2 % 1 PACK (2 CLOTHS) TOP SCH (04:00)
[2016-09-08] MEDS: PANTOPRAZOLE SODIUM 40 MG VIAL IV SCH ×2 (04:36→15:19)
[2016-09-08] MEDS: DEXT 5%-NACL 0.9% 1000 ML INJ 1,000 ML IV SCH (05:07)
[2016-09-08] MEDS: cloNIDine HCL 0.1 MG TAB PO PRN ×3 (05:09→21:10)
[2016-09-08] MEDS: PREGABALIN 100 MG CAP PO SCH ×3 (05:09→21:08)
[2016-09-08] MEDS: metroNIDAZOLE 500 MG TAB PO SCH ×3 (05:09→21:08)
[2016-09-08 08:49] LABS: AUTOMATED NEUTROPHIL # 5.2 TH/MM3 (1.8-7.7); BASOPHIL % 0.2 % (0.0-2.0); EOSINOPHIL # 0.1 TH/MM3 (0-0.4); EOSINOPHIL % 1.1 % (0.0-4.0); HEMATOCRIT 31.5 % (35.0-46.0); HEMO FLAGS DIFF FINAL; LYMPH % 26.9 % (9.0-44.0); LYMPHOCYTE # 2.1 TH/MM3 (1.0-4.8); MEAN CELL VOLUME 106.5 FL (80.0-100.0); MEAN CORPUSCULAR HEMOGLOBIN 36.4 PG (27.0-34.0); MEAN CORPUSCULAR HGB CONC 34.1 % (32.0-36.0); MONO % 6.4 % (0.0-8.0); NEUT % 65.4 % (16.0-70.0); PLATELET COUNT 144 TH/MM3 (150-450); RED BLOOD COUNT 2.96 MIL/MM3 (4.00-5.30); WHITE BLOOD COUNT 7.9 TH/MM3 (4.0-11.0)
[2016-09-08 09:22] LABS: ALKALINE PHOSPHATASE 41 U/L (45-117); ALT (GPT) 8 U/L (10-53); ANION GAP 6 MEQ/L (5-15); AST (GOT) 10 U/L (15-37); BICARBONATE 24.6 MEQ/L (21.0-32.0); BLOOD UREA NITROGEN 3 MG/DL (7-18); CHLORIDE 115 MEQ/L (98-107); GLOMERULAR FILTRATION RATE 113 ML/MIN (>89); SODIUM (NA) 146 MEQ/L (136-145); TOTAL BILIRUBIN ADULT 0.3 MG/DL (0.2-1.0)
[2016-09-08] MEDS: CARVEDILOL 12.5 MG TAB PO SCH ×2 (09:23→21:08)
[2016-09-08] MEDS: LIPASE/PROTEASE/AMYLASE (6,000/19,000/30,000) CAP PO SCH (09:23)
[2016-09-08] MEDS: BUDESONIDE-FORMOTEROL 80/4.5 MCG INHALER INH SCH ×2 (09:23→21:08)
[2016-09-08] MEDS: BETHANECHOL CHL 25 MG TAB PO SCH ×3 (09:23→15:19)
[2016-09-08] MEDS: ENALAPRIL MALEATE 10 MG TAB PO SCH ×2 (09:24→21:08)
[2016-09-08 09:26] LABS: POTASSIUM 2.8 MEQ/L (3.5-5.1)
[2016-09-08] MEDS: HYDROXYUREA 500 MG CAP PO SCH (09:30)
[2016-09-08] MEDS: SODIUM CHLORIDE 0.9% FLUSH 10 ML FLUSH IV FLUSH SCH ×2 (09:31→21:07)
[2016-09-08] MEDS: MORPHINE SULFATE 4 MG/ML INJ IV PRN ×4 (09:53→23:27)
[2016-09-08] MEDS ORDERED: POTASSIUM CHLORIDE 20 MEQ CONTROLLED RELEASE TAB PO ONE ×2 (10:00→14:00)
--- NOTE | 2016-09-08 10:00 | HHI.PR ---
Subjective Remarks Patient reports that she wants to go home. Oriented to self and place. Denies any CP or SOB Objective Vital Signs Date Time Temp Pulse Resp B/P Pulse Ox O2 Delivery O2 Flow Rate FiO2 09/08/16 08:25 97 Nasal Cannula 2.00 09/08/16 04:00 97.3 81 18 171/83 98 09/08/16 00:00 97.4 83 18 166/80 97 09/07/16 21:48 Nasal Cannula 2.00 09/07/16 20:00 97.4 92 18 178/94 99 09/07/16 20:00 79 09/07/16 18:10 82 177/88 09/07/16 17:06 80 199/103 194/100 09/07/16 15:54 97.6 85 19 164/101 100 09/07/16 11:13 97.5 76 17 160/75 99 I/O 09/07/16 09/07/16 09/07/16 09/08/16 09/08/16 09/08/16 07:00 15:00 23:00 07:00 15:00 23:00 Intake Total 735 ml 1271 ml 240 ml 742 ml Output Total 1200 ml Balance 735 ml 71 ml 240 ml 742 ml Intake Oral 480 ml 240 ml 100 ml IV Total 735 ml 791 ml 642 ml Output Urine Total 1200 ml # Voids 5 3 3 # Bowel Movements 2 1 0 Result Diagram: 09/08/16 0752 09/08/16 0752 Procedures Current Medications Medications (Trade) Dose Ordered Sig/Diane Route Start Time Stop Time Status Last Admin (Levophed-Dextrose Drip) 250 ml @ 0 mls/hr TITRATE IV 09/02/16 23:30 (Brethine Inj) 1 mg UNSCH PRN SQ 09/02/16 23:30 (Zofran Inj) 4 mg Q6H PRN IV 09/03/16 01:45 09/04/16 15:41 (Tylenol) 650 mg Q4H PRN PO 09/03/16 01:45 (NS Flush) 2 ml BID IV FLUSH 09/03/16 09:00 09/04/16 20:16 (NS Flush) 2 ml UNSCH PRN IVF 09/03/16 01:45 (Tylenol) 650 mg Q6H PRN PO 09/03/16 03:00 09/04/16 15:16 (Morphine Inj) 2 mg Q2H PRN IV 09/03/16 03:00 09/04/16 17:56 (Protonix Inj) 40 mg Q12H IV 09/03/16 03:00 09/05/16 02:30 (Ativan Inj) 2 mg Q4H PRN IV 09/03/16 03:00 09/04/16 23:30 (Zofran Inj) 4 mg Q6H PRN IV 09/03/16 03:00 (Reglan Inj) 10 mg Q6H PRN IV 09/03/16 03:00 Miscellaneous Information 1 Q361D XX 09/03/16 03:00 (Chlorhexidine 2% Cloth) 3 pack Taper DAILY@04 TOP 09/03/16 04:00 08/30/17 03:59 09/05/16 02:31 (Chlorhexidine 2% Cloth) 3 pack UNSCH PRN TOP 09/03/16 03:00 (Ventolin Hfa Inh) 1 puff Q4H PRN INH 09/03/16 03:00 (Hydrea) 500 mg DAILY PO 09/03/16 09:00 09/04/16 09:28 (Pyridium) 100 mg Q8H PRN PO 09/03/16 03:00 (Restoril) 30 mg HS PRN PO 09/03/16 03:00 09/03/16 20:40 (Desyrel) 50 mg HS PO 09/03/16 21:00 09/04/16 20:15 (Symbicort 80-4.5 Mcg Inh) 2 puff BID INH 09/03/16 09:00 09/04/16 20:16 Amylase/Lipase/ Protease 1 cap 1 cap DAILY PO 09/03/16 09:00 09/04/16 09:06 Levofloxacin/ Dextrose 150 ml @ 100 mls/hr Q24H IV 09/03/16 07:00 09/04/16 05:32 Metronidazole 100 ml @ 100 mls/hr Q8H IV 09/03/16 06:00 09/05/16 05:13 Potassium Chloride 100 ml @ 50 mls/hr Q2H PRN IV 09/03/16 14:00 (KCl 20 Meq Premix Inj) 100 ml @ 50 mls/hr Q2H PRN IV 09/03/16 14:00 Potassium Bicarb/ Potassium Chloride 50 meq 50 meq UNSCH PRN PO 09/03/16 14:00 Potassium Chloride 100 ml @ 25 mls/hr UNSCH PRN IV 09/03/16 14:00 Potassium Chloride 100 ml @ 50 mls/hr Q2H PRN IV 09/03/16 14:00 (Magnesium Sulfate Inj/NS Inj) 100 ml @ 50 mls/hr UNSCH PRN IV 09/03/16 14:00 Magnesium Oxide 800 mg 800 mg UNSCH PRN PO 09/03/16 14:00 (Magnesium Sulfate Inj/NS Inj) 100 ml @ 50 mls/hr UNSCH PRN IV 09/03/16 14:00 09/03/16 20:51 Potassium Phosphate 2000 mg 2,000 mg Q4H PRN PO 09/03/16 14:00 (Sodium Phosphate Inj/NS 250 ml Inj) 250 ml @ 42 mls/hr UNSCH PRN IV 09/03/16 14:00 09/03/16 20:51 Potassium Phosphate 2000 mg 2,000 mg UNSCH PRN PO/TUBE 09/03/16 14:00 Potassium Phosphate 30 mmol/ Sodium Chloride 260 ml @ 42 mls/hr UNSCH PRN IV 09/03/16 14:00 (D5W-NS 1000 ml Inj) 1,000 ml @ 84 mls/hr [id number] IV 09/03/16 15:15 09/05/16 02:31 (Vasotec) 10 mg BID PO 09/04/16 21:00 09/04/16 20:33 (Coreg) 12.5 mg BID PO 09/04/16 21:00 09/04/16 20:15 (Catapres) 0.1 mg Q6H PRN PO 09/04/16 10:15 09/04/16 15:16 (Lyrica) 100 mg Q8HR PO 09/04/16 22:00 09/05/16 05:13 Objective Remarks GENERAL: lethargic but responds to questions SKIN: Warm and dry. HEAD: Normocephalic. EYES: No scleral icterus. No injection or drainage. NECK: Supple, trachea midline. No JVD or lymphadenopathy. CARDIOVASCULAR: Regular rate and rhythm without murmurs, gallops, or rubs. RESPIRATORY: Breath sounds equal bilaterally. No accessory muscle use. GASTROINTESTINAL: Abdomen soft, non-tender, nondistended. MUSCULOSKELETAL: No cyanosis, or edema. BACK: Nontender without obvious deformity. No CVA tenderness. Medications and IVs Current Medications Medications (Trade) Dose Ordered Sig/Diane Route Start Time Stop Time Status Last Admin (Brethine Inj) 1 mg UNSCH PRN SQ 09/02/16 23:30 (Tylenol) 650 mg Q4H PRN PO 09/03/16 01:45 09/06/16 09:34 (NS Flush) 2 ml BID IV FLUSH 09/03/16 09:00 09/08/16 09:31 (NS Flush) 2 ml UNSCH PRN IVF 09/03/16 01:45 (Tylenol) 650 mg Q6H PRN PO 09/03/16 03:00 09/04/16 15:16 (Morphine Inj) 2 mg Q2H PRN IV 09/03/16 03:00 09/07/16 16:00 (Protonix Inj) 40 mg Q12H IV 09/03/16 03:00 09/08/16 04:36 (Ativan Inj) 2 mg Q4H PRN IV 09/03/16 03:00 09/07/16 21:24 (Reglan Inj) 10 mg Q6H PRN IV 09/03/16 03:00 Miscellaneous Information 1 Q361D XX 09/03/16 03:00 (Chlorhexidine 2% Cloth) Taper DAILY@04 TOP 09/03/16 04:00 08/30/17 03:59 09/07/16 03:49 (Chlorhexidine 2% Cloth) 3 pack UNSCH PRN TOP 09/03/16 03:00 (Ventolin Hfa Inh) 1 puff Q4H PRN INH 09/03/16 03:00 09/05/16 09:56 (Hydrea) 500 mg DAILY PO 09/03/16 09:00 09/08/16 09:30 (Pyridium) 100 mg Q8H PRN PO 09/03/16 03:00 (Restoril) 30 mg HS PRN PO 09/03/16 03:00 09/07/16 21:24 (Desyrel) 50 mg HS PO 09/03/16 21:00 09/07/16 21:24 (Symbicort 80-4.5 Mcg Inh) 2 puff BID INH 09/03/16 09:00 09/08/16 09:23 Amylase/Lipase/ Protease 1 cap 1 cap DAILY PO 09/03/16 09:00 09/08/16 09:23 (D5W-NS 1000 ml Inj) 1,000 ml @ 84 mls/hr [id number] IV 09/03/16 15:15 09/08/16 05:07 (Vasotec) 10 mg BID PO 09/04/16 21:00 09/08/16 09:24 (Coreg) 12.5 mg BID PO 09/04/16 21:00 09/08/16 09:23 (Catapres) 0.1 mg Q6H PRN PO 09/04/16 10:15 09/08/16 05:09 (Lyrica) 100 mg Q8HR PO 09/04/16 22:00 09/08/16 05:09 (Urecholine) 25 mg TIDAC PO 09/07/16 08:00 09/08/16 09:23 (Zofran Odt) 8 mg TID PRN PO 09/06/16 18:15 (Levaquin) 750 mg DAILY@11 PO 09/08/16 11:00 (Flagyl) 500 mg Q8HR PO 09/07/16 22:00 09/08/16 05:09 Assessment and Plan Problem List: (1) Sepsis Status: Acute Plan: ID consulted and managing. On antibiotics. WBC 7.9 (2) Abdominal pain Status: Acute Plan: .GI consulted and managing. Cleared for discharge from GI standpoint. Tolerating diet and abdominal pain improved. (3) Altered mental status Status: Acute Plan: Patient with AMS. Groaning out at times. Head CT with no acute findings. Will monitor could be related to infection and polypharmacy (4) Hypertension, benign Status: Chronic Plan: Patient was initially hypotension when she arrived. Hypertensive yesterday and home blood pressure medication have been resumed. PRN clonidine. Will monitor (5) COPD (chronic obstructive pulmonary disease) Status: Acute Plan: No SOB noted. O2 liters NC Good sats. Continue Symbicort and vent inhaler (6) Chronic pain syndrome Status: Acute Plan: Patient medication as needed. Will need to be weaned (7) Myeloproliferative disease Status: Acute Plan: Continue Hydroxyurea (8) Hypokalemia Status: Acute Plan: Potassium 2.8. Replacement added. Recheck in 0 (9) Debility Status: Acute Plan: PT/OT ordered. Assessment and Plan Assessment and plan discussed with Dr. Cifuentes Discussed Condition With Nursing Discharge Planning Case management consulted for planning Cailin Sorenson Sep 08, 2016 10:00
--- NOTE | 2016-09-08 10:18 | HHI.GIFU ---
Subjective Remarks letheragic 2 pain meds for back pain diarrhea according to Objective Vitals I&O Vital Signs Date Time Temp Pulse Resp B/P Pulse Ox O2 Delivery O2 Flow Rate FiO2 09/08/16 08:25 97 Nasal Cannula 2.00 09/08/16 04:00 97.3 81 18 171/83 98 09/08/16 00:00 97.4 83 18 166/80 97 09/07/16 21:48 Nasal Cannula 2.00 09/07/16 20:00 97.4 92 18 178/94 99 09/07/16 20:00 79 09/07/16 18:10 82 177/88 09/07/16 17:06 80 199/103 194/100 09/07/16 15:54 97.6 85 19 164/101 100 09/07/16 11:13 97.5 76 17 160/75 99 I/O 09/07/16 09/07/16 09/07/16 09/08/16 09/08/16 09/08/16 07:00 15:00 23:00 07:00 15:00 23:00 Intake Total 735 ml 1271 ml 240 ml 742 ml Output Total 1200 ml Balance 735 ml 71 ml 240 ml 742 ml Intake Oral 480 ml 240 ml 100 ml IV Total 735 ml 791 ml 642 ml Output Urine Total 1200 ml # Voids 5 3 3 # Bowel Movements 2 1 0 Laboratory Laboratory Tests Test 09/07/16 09/08/16 10:15 07:52 Urine Color LIGHT-YELLOW Urine Turbidity HAZY Urine pH 6.5 Urine Specific [place] 1.002 Urine Protein NEG Urine Glucose (UA) NEG Urine Ketones NEG Urine Occult Blood NEG Urine Nitrite NEG Urine Bilirubin NEG Urine Urobilinogen LESS THAN 2.0 Urine Leukocyte Esterase LARGE Urine RBC 1 Urine WBC 9 Urine Squamous Epithelial 8 Cells Urine Transitional Epithelial <1 Cells Urine Bacteria RARE Urine Yeast (Budding) OCC Microscopic Urinalysis Comment CATH-CULTURE IND White Blood Count 7.9 Red Blood Count 2.96 Hemoglobin 10.8 Hematocrit 31.5 Mean Corpuscular Volume 106.5 Mean Corpuscular Hemoglobin 36.4 Mean Corpuscular Hemoglobin 34.1 Concent Red Cell Distribution Width 13.0 Platelet Count 144 Mean Platelet Volume 9.1 Neutrophils (%) (Auto) 65.4 Lymphocytes (%) (Auto) 26.9 Monocytes (%) (Auto) 6.4 Eosinophils (%) (Auto) 1.1 Basophils (%) (Auto) 0.2 Neutrophils # (Auto) 5.2 Lymphocytes # (Auto) 2.1 Monocytes # (Auto) 0.5 Eosinophils # (Auto) 0.1 Basophils # (Auto) 0.0 CBC Comment DIFF FINAL Differential Comment Sodium Level 146 Potassium Level 2.8 Chloride Level 115 Carbon Dioxide Level 24.6 Anion Gap 6 Blood Urea Nitrogen 3 Creatinine 0.54 Estimat Glomerular Filtration 113 Rate Random Glucose 115 Calcium Level 7.7 Total Bilirubin 0.3 Aspartate Amino Transf 10 (AST/SGOT) Alanine Aminotransferase 8 (ALT/SGPT) Alkaline Phosphatase 41 Total Protein 5.2 Albumin 2.1 Date/Time Procedure Status Source Growth 09/07/16 10:15 Urine Culture Received Urine Catheterized Urine Pending 09/05/16 17:41 Aerobic Blood Culture - Preliminary Resulted Blood Peripheral NO GROWTH IN 2 DAYS 09/05/16 17:41 Anaerobic Blood Culture - Preliminary Resulted Blood Peripheral NO GROWTH IN 2 DAYS Physical Exam CHEST: Chest is clear to auscultation and percussion. CARDIAC: Regular rate and rhythm with no murmur gallop or rubs. ABDOMEN: Soft, nondistended, nontender; bowel sounds are present in all four quadrants. EXTREMITIES: No clubbing, cyanosis, or edema. Assessment and Plan Assessment: (1) Abdominal pain (2) Colitis (3) Pancreatitis, recurrent (4) Sepsis Plan suggest sending stools for pathogens/ c diff as well.. discussed w at bedside...otherwise cont present therapy. Problem Qualifiers (1) Sepsis: Qualified Code: A41.9 - Sepsis, due to unspecified organism Nirav Arevalo MD Sep 08, 2016 10:18
[2016-09-08] MEDS: LEVOFLOXACIN 750 MG TAB PO SCH (11:24)
--- NOTE | 2016-09-08 13:44 | HHI.IDPN ---
Subjective Subjective Remarks ID COVERAGE Admitted C/O abdominal pain. CT with thickening of descending and sigmoid colon. Has had diarrhea, 2 recorded yesterday, none today. Pain is better, still a little on L side. Also has some haziness in pancreas, but lipase normal Patient sees a pain medicine specialist and is on very significant amounts of narcotics. She also has a history of HTN, COPD, chronic pain, myeloproliferate disorder, AFIB, Heart block, colitis, gastroparesis, pancreatitis, diverticulitis, and metabolic encephalopathy. Patient follows with for GI and for Cardiac issues. ID was consulted for evaluation and Mment of elevated WBC, abdominal pain and CT with colitis. Sepsis workup initiated and patient on IV Levaquin and IV Flagyl for presumed infectious colitis. Notes reviewed (+) diarrhea Stool studies still not done Abdominal pain is better WBC down to normal BP ok Antibiotics Levaquin po Flagyl po Lines Line sites with no e.o infection Past Medical History reviewed Allergies: Coded Allergies: Bactrim (Verified Allergy, Severe, "VOMITING", 08/15/16) Inderal (Verified Allergy, Severe, "CAUSES ASTHMA ATTACK", 08/15/16) Indocin (Verified Allergy, Severe, "NAUSEA", 08/15/16) Penicillin (Verified Allergy, Severe, "HEART FAILURE", 08/15/16) Procardia (Verified Allergy, Severe, "RAPID HEART BEAT", 08/15/16) states does not have a allergy to this medication carlos Grullon 08/15/16 Objective . Vital Signs Date Time Temp Pulse Resp B/P Pulse Ox O2 Delivery O2 Flow Rate FiO2 09/08/16 08:40 91 09/08/16 08:40 Nasal Cannula 2.00 09/08/16 08:25 97 Nasal Cannula 2.00 09/08/16 04:00 97.3 81 18 171/83 98 09/08/16 00:00 97.4 83 18 166/80 97 09/07/16 21:48 Nasal Cannula 2.00 09/07/16 21:48 Nasal Cannula 2.00 09/07/16 20:00 97.4 92 18 178/94 99 09/07/16 20:00 79 09/07/16 18:10 82 177/88 09/07/16 17:06 80 199/103 194/100 09/07/16 15:54 97.6 85 19 164/101 100 09/07/16 09/07/16 09/08/16 15:00 23:00 07:00 Intake Total 1271 ml 240 ml 742 ml Output Total 1200 ml Balance 71 ml 240 ml 742 ml Intake Oral 480 ml 240 ml 100 ml IV Total 791 ml 642 ml Output Urine Total 1200 ml # Voids 5 3 3 # Bowel Movements 2 1 0 . Laboratory Tests Test 09/07/16 09/08/16 05:54 07:52 White Blood Count 4.8 TH/MM3 7.9 TH/MM3 Red Blood Count 2.54 MIL/MM3 2.96 MIL/MM3 Hemoglobin 9.4 GM/DL 10.8 GM/DL Hematocrit 27.0 % 31.5 % Mean Corpuscular Volume 106.2 FL 106.5 FL Mean Corpuscular Hemoglobin 36.9 PG 36.4 PG Mean Corpuscular Hemoglobin 34.7 % 34.1 % Concent Red Cell Distribution Width 12.7 % 13.0 % Platelet Count 110 TH/MM3 144 TH/MM3 Mean Platelet Volume 8.9 FL 9.1 FL Neutrophils (%) (Auto) 55.7 % 65.4 % Lymphocytes (%) (Auto) 35.7 % 26.9 % Monocytes (%) (Auto) 6.1 % 6.4 % Eosinophils (%) (Auto) 2.2 % 1.1 % Basophils (%) (Auto) 0.3 % 0.2 % Neutrophils # (Auto) 2.7 TH/MM3 5.2 TH/MM3 Lymphocytes # (Auto) 1.7 TH/MM3 2.1 TH/MM3 Monocytes # (Auto) 0.3 TH/MM3 0.5 TH/MM3 Eosinophils # (Auto) 0.1 TH/MM3 0.1 TH/MM3 Basophils # (Auto) 0.0 TH/MM3 0.0 TH/MM3 CBC Comment DIFF FINAL DIFF FINAL Differential Comment Laboratory Tests Test 09/07/16 09/08/16 05:54 07:52 Sodium Level 146 MEQ/L 146 MEQ/L Potassium Level 3.0 MEQ/L 2.8 MEQ/L Chloride Level 115 MEQ/L 115 MEQ/L Carbon Dioxide Level 23.7 MEQ/L 24.6 MEQ/L Anion Gap 7 MEQ/L 6 MEQ/L Blood Urea Nitrogen 3 MG/DL 3 MG/DL Creatinine 0.55 MG/DL 0.54 MG/DL Estimat Glomerular Filtration 110 ML/MIN 113 ML/MIN Rate Random Glucose 101 MG/DL 115 MG/DL Calcium Level 7.4 MG/DL 7.7 MG/DL Protein Corrected Calcium 8.8 MG/DL Total Protein 4.7 GM/DL 5.2 GM/DL Total Bilirubin 0.3 MG/DL Aspartate Amino Transf 10 U/L (AST/SGOT) Alanine Aminotransferase 8 U/L (ALT/SGPT) Alkaline Phosphatase 41 U/L Albumin 2.1 GM/DL Microbiology Date/Time Procedure Status Source Growth 09/05/16 17:34 Aerobic Blood Culture - Preliminary Resulted Blood Peripheral NO GROWTH IN 3 DAYS 09/05/16 17:34 Anaerobic Blood Culture - Preliminary Resulted Blood Peripheral NO GROWTH IN 3 DAYS 09/05/16 17:41 Aerobic Blood Culture - Preliminary Resulted Blood Peripheral NO GROWTH IN 3 DAYS 09/05/16 17:41 Anaerobic Blood Culture - Preliminary Resulted Blood Peripheral NO GROWTH IN 3 DAYS 09/07/16 10:15 Urine Culture - Preliminary Resulted Urine Catheterized Urine Kathryn Albicans Yeast-Id To Follow Imaging Last Impressions Abdomen/Pelvis CT 09/03/16 0000 Signed Impressions: Service Date/Time: Saturday, September 03, 2016 02:00 - CONCLUSION: Long segment colitis involving the descending and sigmoid colon. Low density throughout the head of the pancreas increased since July possible pancreatitis. Free fluid around the liver, spleen and within the pelvis of uncertain etiology. Jaya Pearl MD Head CT 09/02/162322 Signed Impressions: Service Date/Time: Saturday, September 03, 2016 01:56 - CONCLUSION: Normal examination. Jaya Pearl MD Chest X-Ray 09/02/162322 Signed Impressions: Service Date/Time: Friday, September 02, 2016 23:32 - CONCLUSION: Normal examination. Jaya Pearl MD Physical Exam GENERAL: Awakens easily, not in distress SKIN: No rashes, ecchymoses or lesions. Cool and dry. HEENT: Pupils equal round and reactive. No scleral icterus. No injection or drainage. Moist oral mucosa. NECK: Trachea midline. Supple, nontender, no meningeal signs. CARDIOVASCULAR: RRR RESPIRATORY: Clear to auscultation. Breath sounds equal bilaterally. No wheezes , rales, or rhonchi. GASTROINTESTINAL: Abdomen soft, not distended, not tender. No guarding, no rebound. NO organomegaly. BS (+) normoactive MUSCULOSKELETAL: Extremities without clubbing, cyanosis, or edema. No joint effusion, or edema noted. No calf tenderness. NEUROLOGICAL: Awake and alert. Non focal Psych: cooperative IV line sites with no e.o infection. Assessment & Plan Remarks Possible Sepsis present on admission (hypothermia, elevated WBC, encephalopathy) - better - has GNR in [place] no ID yet Colitis: infectious, ischemic (given her cardiac history and Afib), Cdiff Acute pancreatitis (?) Acute metabolic encephalopathy: infection, pain meds. Recs: Change Levaquin to po Change Flagyl to poV I have reordered C diff Monitor progress Follow C/S Liberty Wright MD Sep 08, 2016 13:44 Follow cultures If persistent bacteremia will need endovascular workup. Monitor progress Spoke with Librety Wright MD Sep 08, 2016 13:44
[2016-09-08] MEDS: LORazepam 2 MG/ML VIAL IV PRN (13:49)
[2016-09-08] MEDS: RESP: ALBUTEROL 2.5 MG/IPRATROPIUM 0.5 MG NEB (PRN) INH (20:16)
[2016-09-08] MEDS: TEMAZEPAM 15 MG CAP PO PRN (21:08)
[2016-09-08] MEDS: traZODone HCL 50 MG TAB PO SCH (21:08)
[2016-09-09] VITALS (9 sets, daily range): BP systolic 140–191; BP diastolic 76–92; PULSE 79–92; RESP 18–20; TEMP 97.9–98.4; O2SAT 93–99
[2016-09-09] MEDS: CHLORHEXIDINE GLUCONATE 2 % 1 PACK (2 CLOTHS) TOP SCH (03:38)
[2016-09-09] MEDS: PANTOPRAZOLE SODIUM 40 MG VIAL IV SCH ×2 (03:38→14:28)
[2016-09-09] MEDS: MORPHINE SULFATE 4 MG/ML INJ IV PRN (03:57)
[2016-09-09] MEDS: metroNIDAZOLE 500 MG TAB PO SCH ×3 (04:54→22:05)
[2016-09-09] MEDS: PREGABALIN 100 MG CAP PO SCH ×3 (04:54→22:05)
[2016-09-09] MEDS: ONDANSETRON ODT 4 MG TAB PO PRN ×2 (04:54→22:43)
[2016-09-09] MEDS: RESP: ALBUTEROL 2.5 MG/IPRATROPIUM 0.5 MG NEB (PRN) INH ×2 (05:22→19:41)
[2016-09-09] MEDS: POTASSIUM CHLORIDE 20 MEQ CONTROLLED RELEASE TAB PO SCH (08:46)
[2016-09-09] MEDS: LIPASE/PROTEASE/AMYLASE (6,000/19,000/30,000) CAP PO SCH (08:46)
[2016-09-09] MEDS: CARVEDILOL 12.5 MG TAB PO SCH ×2 (08:46→22:05)
[2016-09-09] MEDS: ENALAPRIL MALEATE 10 MG TAB PO SCH ×3 (08:46→22:05)
[2016-09-09] MEDS: BETHANECHOL CHL 25 MG TAB PO SCH ×3 (08:46→14:28)
[2016-09-09] MEDS: SODIUM CHLORIDE 0.9% FLUSH 10 ML FLUSH IV FLUSH SCH ×2 (08:47→22:06)
[2016-09-09] MEDS: ALBUTEROL SULFATE 90 MCG/ACT HFA 18 GM INHALER INH PRN (08:47)
[2016-09-09] MEDS: HYDROXYUREA 500 MG CAP PO SCH (08:49)
--- NOTE | 2016-09-09 08:49 | HHI.PR ---
Subjective Remarks Patient reports that she wants to go home. Oriented to self and place. Denies any CP or SOB. Reports loose stools Objective Vital Signs Date Time Temp Pulse Resp B/P Pulse Ox O2 Delivery O2 Flow Rate FiO2 09/09/16 08:04 3.00 09/09/16 08:00 98.4 81 18 160/76 99 Automatic Cuff 09/09/16 05:22 93 Nasal Cannula 3.00 09/09/16 04:00 97.9 79 18 140/ 96 09/08/16 23:30 97.8 85 18 152/71 96 09/08/16 21:08 Nasal Cannula 2.00 09/08/16 20:18 97.8 93 18 186/92 99 180/88 09/08/16 19:43 89 09/08/16 16:00 97.6 83 20 186/84 96 09/08/16 12:00 97.8 83 18 154/74 99 I/O 09/08/16 09/08/16 09/08/16 09/09/16 09/09/16 09/09/16 07:00 15:00 23:00 07:00 15:00 23:00 Intake Total 742 ml 480 ml 120 ml 0 ml Output Total 600 ml Balance 742 ml 480 ml 120 ml -600 ml Intake Oral 100 ml 480 ml 120 ml 0 ml IV Total 642 ml Output Urine Total 600 ml # Voids 3 3 2 # Bowel Movements 0 2 0 0 Result Diagram: 09/08/16 0752 09/08/16 2245 Procedures Current Medications Medications (Trade) Dose Ordered Sig/Diane Route Start Time Stop Time Status Last Admin (Levophed-Dextrose Drip) 250 ml @ 0 mls/hr TITRATE IV 09/02/16 23:30 (Brethine Inj) 1 mg UNSCH PRN SQ 09/02/16 23:30 (Zofran Inj) 4 mg Q6H PRN IV 09/03/16 01:45 09/04/16 15:41 (Tylenol) 650 mg Q4H PRN PO 09/03/16 01:45 (NS Flush) 2 ml BID IV FLUSH 09/03/16 09:00 09/04/16 20:16 (NS Flush) 2 ml UNSCH PRN IVF 09/03/16 01:45 (Tylenol) 650 mg Q6H PRN PO 09/03/16 03:00 09/04/16 15:16 (Morphine Inj) 2 mg Q2H PRN IV 09/03/16 03:00 09/04/16 17:56 (Protonix Inj) 40 mg Q12H IV 09/03/16 03:00 09/05/16 02:30 (Ativan Inj) 2 mg Q4H PRN IV 09/03/16 03:00 09/04/16 23:30 (Zofran Inj) 4 mg Q6H PRN IV 09/03/16 03:00 (Reglan Inj) 10 mg Q6H PRN IV 09/03/16 03:00 Miscellaneous Information 1 Q361D XX 09/03/16 03:00 (Chlorhexidine 2% Cloth) 3 pack Taper DAILY@04 TOP 09/03/16 04:00 08/30/17 03:59 09/05/16 02:31 (Chlorhexidine 2% Cloth) 3 pack UNSCH PRN TOP 09/03/16 03:00 (Ventolin Hfa Inh) 1 puff Q4H PRN INH 09/03/16 03:00 (Hydrea) 500 mg DAILY PO 09/03/16 09:00 09/04/16 09:28 (Pyridium) 100 mg Q8H PRN PO 09/03/16 03:00 (Restoril) 30 mg HS PRN PO 09/03/16 03:00 09/03/16 20:40 (Desyrel) 50 mg HS PO 09/03/16 21:00 09/04/16 20:15 (Symbicort 80-4.5 Mcg Inh) 2 puff BID INH 09/03/16 09:00 09/04/16 20:16 Amylase/Lipase/ Protease 1 cap 1 cap DAILY PO 09/03/16 09:00 09/04/16 09:06 Levofloxacin/ Dextrose 150 ml @ 100 mls/hr Q24H IV 09/03/16 07:00 09/04/16 05:32 Metronidazole 100 ml @ 100 mls/hr Q8H IV 09/03/16 06:00 09/05/16 05:13 Potassium Chloride 100 ml @ 50 mls/hr Q2H PRN IV 09/03/16 14:00 (KCl 20 Meq Premix Inj) 100 ml @ 50 mls/hr Q2H PRN IV 09/03/16 14:00 Potassium Bicarb/ Potassium Chloride 50 meq 50 meq UNSCH PRN PO 09/03/16 14:00 Potassium Chloride 100 ml @ 25 mls/hr UNSCH PRN IV 09/03/16 14:00 Potassium Chloride 100 ml @ 50 mls/hr Q2H PRN IV 09/03/16 14:00 (Magnesium Sulfate Inj/NS Inj) 100 ml @ 50 mls/hr UNSCH PRN IV 09/03/16 14:00 Magnesium Oxide 800 mg 800 mg UNSCH PRN PO 09/03/16 14:00 (Magnesium Sulfate Inj/NS Inj) 100 ml @ 50 mls/hr UNSCH PRN IV 09/03/16 14:00 09/03/16 20:51 Potassium Phosphate 2000 mg 2,000 mg Q4H PRN PO 09/03/16 14:00 (Sodium Phosphate Inj/NS 250 ml Inj) 250 ml @ 42 mls/hr UNSCH PRN IV 09/03/16 14:00 09/03/16 20:51 Potassium Phosphate 2000 mg 2,000 mg UNSCH PRN PO/TUBE 09/03/16 14:00 Potassium Phosphate 30 mmol/ Sodium Chloride 260 ml @ 42 mls/hr UNSCH PRN IV 09/03/16 14:00 (D5W-NS 1000 ml Inj) 1,000 ml @ 84 mls/hr [id number] IV 09/03/16 15:15 09/05/16 02:31 (Vasotec) 10 mg BID PO 09/04/16 21:00 09/04/16 20:33 (Coreg) 12.5 mg BID PO 09/04/16 21:00 09/04/16 20:15 (Catapres) 0.1 mg Q6H PRN PO 09/04/16 10:15 09/04/16 15:16 (Lyrica) 100 mg Q8HR PO 09/04/16 22:00 09/05/16 05:13 Objective Remarks GENERAL: Cooperative SKIN: Warm and dry. HEAD: Normocephalic. EYES: No scleral icterus. No injection or drainage. NECK: Supple, trachea midline. No JVD or lymphadenopathy. CARDIOVASCULAR: Regular rate and rhythm without murmurs, gallops, or rubs. RESPIRATORY: Breath sounds equal bilaterally. No accessory muscle use. GASTROINTESTINAL: Abdomen soft, non-tender, nondistended. MUSCULOSKELETAL: No cyanosis, or edema. BACK: Nontender without obvious deformity. No CVA tenderness. Medications and IVs Current Medications Medications (Trade) Dose Ordered Sig/Diane Route Start Time Stop Time Status Last Admin (Brethine Inj) 1 mg UNSCH PRN SQ 09/02/16 23:30 (Tylenol) 650 mg Q4H PRN PO 09/03/16 01:45 09/06/16 09:34 (NS Flush) 2 ml BID IV FLUSH 09/03/16 09:00 09/08/16 21:07 (NS Flush) 2 ml UNSCH PRN IVF 09/03/16 01:45 (Tylenol) 650 mg Q6H PRN PO 09/03/16 03:00 09/04/16 15:16 (Protonix Inj) 40 mg Q12H IV 09/03/16 03:00 09/09/16 03:38 (Reglan Inj) 10 mg Q6H PRN IV 09/03/16 03:00 Miscellaneous Information 1 Q361D XX 09/03/16 03:00 (Chlorhexidine 2% Cloth) Taper DAILY@04 TOP 09/03/16 04:00 08/30/17 03:59 09/07/16 03:49 (Chlorhexidine 2% Cloth) 3 pack UNSCH PRN TOP 09/03/16 03:00 (Ventolin Hfa Inh) 1 puff Q4H PRN INH 09/03/16 03:00 09/05/16 09:56 (Hydrea) 500 mg DAILY PO 09/03/16 09:00 09/08/16 09:30 (Pyridium) 100 mg Q8H PRN PO 09/03/16 03:00 (Desyrel) 50 mg HS PO 09/03/16 21:00 09/08/16 21:08 (Symbicort 80-4.5 Mcg Inh) 2 puff BID INH 09/03/16 09:00 09/08/16 21:08 (Creon 6--30) 1 cap DAILY PO 09/03/16 09:00 09/08/16 09:23 (Vasotec) 10 mg BID PO 09/04/16 21:00 09/08/16 21:08 (Coreg) 12.5 mg BID PO 09/04/16 21:00 09/08/16 21:08 (Catapres) 0.1 mg Q6H PRN PO 09/04/16 10:15 09/08/16 21:10 (Lyrica) 100 mg Q8HR PO 09/04/16 22:00 09/09/16 04:54 (Urecholine) 25 mg TIDAC PO 09/07/16 08:00 09/08/16 15:19 (Zofran Odt) 8 mg TID PRN PO 09/06/16 18:15 09/09/16 04:54 (Levaquin) 750 mg DAILY@11 PO 09/08/16 11:00 09/08/16 11:24 (Flagyl) 500 mg Q8HR PO 09/07/16 22:00 09/09/16 04:54 (KCl) 40 meq DAILY PO 09/09/16 09:00 Assessment and Plan Problem List: (1) Sepsis Status: Acute Plan: ID consulted and managing. On antibiotics changed to PO. Labs pending (2) Abdominal pain Status: Acute Plan: .GI consulted and managing. Cleared for discharge from GI standpoint. Tolerating diet and abdominal pain improved. (3) Altered mental status Status: Acute Plan: Patient alert this AM. Short term memory impaired. Head CT with no acute findings. Will monitor could be related to infection and polypharmacy (4) Hypertension, benign Status: Acute Plan: Patient was initially hypotension when she arrived. Hypertensive 160/ 76. B/P medication titrated. PRN clonidine. Will monitor (5) COPD (chronic obstructive pulmonary disease) Status: Acute Plan: No SOB noted. O2 liters NC Good sats. Continue Symbicort and vent inhaler (6) Chronic pain syndrome Status: Acute Plan: Patient medication as needed. Will need to be weaned (7) Myeloproliferative disease Status: Acute Plan: Continue Hydroxyurea (8) Hypokalemia Status: Acute Plan: Potassium 2.8. Replacement added. Recheck in 1700 at 3.6. Labs pending for this AM (9) Debility Status: Acute Plan: PT/OT ordered. Assessment and Plan Assessment and plan discussed with Dr. Cifuentes Discussed Condition With . Discharge Planning and patient refusing a SNF and request to be discharged home when ready Cailin Sorenson [facility] Sep 09, 2016 08:49
[2016-09-09] MEDS: BUDESONIDE-FORMOTEROL 80/4.5 MCG INHALER INH SCH ×2 (08:51→22:02)
[2016-09-09] MEDS: LEVOFLOXACIN 750 MG TAB PO SCH (11:35)
[2016-09-09] MEDS: cloNIDine HCL 0.1 MG TAB PO PRN (11:37)
--- NOTE | 2016-09-09 12:34 | HHI.GIFU ---
Subjective Remarks more alert today Nad denies abdominal pain loose stools lab for c diff stool pending Objective Vitals I&O Vital Signs Date Time Temp Pulse Resp B/P Pulse Ox O2 Delivery O2 Flow Rate FiO2 09/09/16 12:00 97.9 87 20 175/92 96 09/09/16 08:50 Nasal Cannula 2.00 09/09/16 08:50 82 09/09/16 08:04 3.00 09/09/16 08:00 98.4 81 18 160/76 99 Automatic Cuff 09/09/16 05:22 93 Nasal Cannula 3.00 09/09/16 04:00 97.9 79 18 140/ 96 09/08/16 23:30 97.8 85 18 152/71 96 09/08/16 21:08 Nasal Cannula 2.00 09/08/16 20:18 97.8 93 18 186/92 99 180/88 09/08/16 19:43 89 09/08/16 16:00 97.6 83 20 186/84 96 I/O 09/08/16 09/08/16 09/08/16 09/09/16 09/09/16 09/09/16 07:00 15:00 23:00 07:00 15:00 23:00 Intake Total 742 ml 480 ml 120 ml 0 ml Output Total 600 ml Balance 742 ml 480 ml 120 ml -600 ml Intake Oral 100 ml 480 ml 120 ml 0 ml IV Total 642 ml Output Urine Total 600 ml # Voids 3 3 2 # Bowel Movements 0 2 0 0 Laboratory Laboratory Tests Test 09/06/16 09/07/16 09/07/16 09/08/16 06:03 05:54 10:15 07:52 Platelet Estimate LOW Platelet Morphology Comment NORMAL Protein Corrected Calcium 8.8 MG/DL Urine Color LIGHT-YELLOW Urine Turbidity HAZY Urine pH 6.5 Urine Specific [place] 1.002 Urine Protein NEG mg/dL Urine Glucose (UA) NEG mg/dL Urine Ketones NEG mg/dL Urine Occult Blood NEG Urine Nitrite NEG Urine Bilirubin NEG Urine Urobilinogen LESS THAN 2.0 MG/DL Urine Leukocyte Esterase LARGE Urine RBC 1 /hpf Urine WBC 9 /hpf Urine Squamous Epithelial 8 /hpf Cells Urine Transitional Epithelial <1 /hpf Cells Urine Bacteria RARE /hpf Urine Yeast (Budding) OCC Microscopic Urinalysis Comment CATH-CULTURE IND White Blood Count 7.9 TH/MM3 Red Blood Count 2.96 MIL/MM3 Hemoglobin 10.8 GM/DL Hematocrit 31.5 % Mean Corpuscular Volume 106.5 FL Mean Corpuscular Hemoglobin 36.4 PG Mean Corpuscular Hemoglobin 34.1 % Concent Red Cell Distribution Width 13.0 % Platelet Count 144 TH/MM3 Mean Platelet Volume 9.1 FL Neutrophils (%) (Auto) 65.4 % Lymphocytes (%) (Auto) 26.9 % Monocytes (%) (Auto) 6.4 % Eosinophils (%) (Auto) 1.1 % Basophils (%) (Auto) 0.2 % Neutrophils # (Auto) 5.2 TH/MM3 Lymphocytes # (Auto) 2.1 TH/MM3 Monocytes # (Auto) 0.5 TH/MM3 Eosinophils # (Auto) 0.1 TH/MM3 Basophils # (Auto) 0.0 TH/MM3 CBC Comment DIFF FINAL Differential Comment Sodium Level 146 MEQ/L Chloride Level 115 MEQ/L Carbon Dioxide Level 24.6 MEQ/L Anion Gap 6 MEQ/L Blood Urea Nitrogen 3 MG/DL Creatinine 0.54 MG/DL Estimat Glomerular Filtration 113 ML/MIN Rate Random Glucose 115 MG/DL Calcium Level 7.7 MG/DL Total Bilirubin 0.3 MG/DL Aspartate Amino Transf 10 U/L (AST/SGOT) Alanine Aminotransferase 8 U/L (ALT/SGPT) Alkaline Phosphatase 41 U/L Total Protein 5.2 GM/DL Albumin 2.1 GM/DL Test 09/08/16 22:45 Potassium Level 3.6 MEQ/L Laboratory Tests Test 09/08/16 22:45 Potassium Level 3.6 Date/Time Procedure Status Source Growth 09/07/16 10:15 Urine Culture - Final Complete Urine Catheterized Urine Kathryn Albicans Kathryn Glabrata 09/05/16 17:41 Aerobic Blood Culture - Preliminary Resulted Blood Peripheral NO GROWTH IN 4 DAYS 09/05/16 17:41 Anaerobic Blood Culture - Preliminary Resulted Blood Peripheral NO GROWTH IN 4 DAYS Physical Exam CHEST: Chest is clear to auscultation and percussion. CARDIAC: Regular rate and rhythm with no murmur gallop or rubs. ABDOMEN: Soft, nondistended, nontender; bowel sounds are present in all four quadrants. EXTREMITIES: No clubbing, cyanosis, or edema. Assessment and Plan Assessment: (1) Abdominal pain (2) Colitis (3) Pancreatitis, recurrent (4) Sepsis Plan await stools for c diff ...if positive will need rx dr Nieves to follow up Problem Qualifiers (1) Sepsis: Qualified Code: A41.9 - Sepsis, due to unspecified organism Nirav Arevalo MD Sep 09, 2016 12:34
[2016-09-09 14:00] LABS: C. DIFF EPI 027 PRESUMPTIVE NEGATIVE (NEGATIVE); C. DIFF TOXIN PCR NEGATIVE (NEGATIVE)
[2016-09-09 16:51] LABS: BICARBONATE 20.7 MEQ/L (21.0-32.0); MAGNESIUM 1.2 MG/DL (1.5-2.5); POTASSIUM 4.3 MEQ/L (3.5-5.1)
[2016-09-09 20:51] LABS: BASOPHIL # 0.1 TH/MM3 (0-0.2); BASOPHIL % 0.6 % (0.0-2.0); EOSINOPHIL # 0.1 TH/MM3 (0-0.4); EOSINOPHIL % 0.6 % (0.0-4.0); HEMATOCRIT 32.4 % (35.0-46.0); HEMO FLAGS DIFF FINAL; LYMPH % 25.3 % (9.0-44.0); LYMPHOCYTE # 2.9 TH/MM3 (1.0-4.8); MEAN CELL VOLUME 105.4 FL (80.0-100.0); MEAN CORPUSCULAR HEMOGLOBIN 35.9 PG (27.0-34.0); MONO % 4.4 % (0.0-8.0); NEUT % 69.1 % (16.0-70.0); PLATELET COUNT 191 TH/MM3 (150-450); RED BLOOD COUNT 3.08 MIL/MM3 (4.00-5.30); RED CELL DISTRIBUTION WIDTH 13.3 % (11.6-17.2); WHITE BLOOD COUNT 11.6 TH/MM3 (4.0-11.0)
[2016-09-09] MEDS ORDERED: MAGNESIUM SULFATE INJ 4 GM in DEXTROSE 5% IN WATER 100ML INJ 92 ML IV SCH ×2 (21:00)
[2016-09-09] MEDS: traZODone HCL 50 MG TAB PO SCH (22:05)
[2016-09-10] MEDS: DIPHENOXYLATE/ATROPINE 2.5 MG/0.025 MG TAB PO SCH ×3 (01:46→12:08)
[2016-09-10] MEDS: SODIUM CHLOR 0.45% 1000 ML INJ 1,000 ML IV SCH ×2 (01:47→11:45)
[2016-09-10] MEDS: CHLORHEXIDINE GLUCONATE 2 % 1 PACK (2 CLOTHS) TOP SCH (03:50)
[2016-09-10] MEDS: PANTOPRAZOLE SODIUM 40 MG VIAL IV SCH (03:50)
[2016-09-10 05:00] VITALS: BP 127/61; PULSE 84; RESP 18; TEMP 98.2; O2SAT 98
[2016-09-10] MEDS: PREGABALIN 100 MG CAP PO SCH (06:16)
[2016-09-10] MEDS: metroNIDAZOLE 500 MG TAB PO SCH (06:16)
[2016-09-10 07:30] LABS: ANION GAP 9 MEQ/L (5-15); BICARBONATE 25.5 MEQ/L (21.0-32.0); BLOOD UREA NITROGEN LESS THAN 1 MG/DL (7-18); CHLORIDE 110 MEQ/L (98-107); GLOMERULAR FILTRATION RATE 94 ML/MIN (>89); MAGNESIUM 2.1 MG/DL (1.5-2.5); POTASSIUM 3.5 MEQ/L (3.5-5.1); SODIUM (NA) 144 MEQ/L (136-145)
[2016-09-10 07:53] LABS: AUTOMATED NEUTROPHIL # 7.2 TH/MM3 (1.8-7.7); BASOPHIL % 0.2 % (0.0-2.0); EOSINOPHIL # 0.1 TH/MM3 (0-0.4); EOSINOPHIL % 0.6 % (0.0-4.0); HEMATOCRIT 30.7 % (35.0-46.0); HEMO FLAGS DIFF FINAL; LYMPH % 28.8 % (9.0-44.0); LYMPHOCYTE # 3.2 TH/MM3 (1.0-4.8); MEAN CELL VOLUME 105.2 FL (80.0-100.0); MEAN CORPUSCULAR HEMOGLOBIN 36.3 PG (27.0-34.0); MEAN CORPUSCULAR HGB CONC 34.5 % (32.0-36.0); MONO % 5.3 % (0.0-8.0); NEUT % 65.1 % (16.0-70.0); PLATELET COUNT 158 TH/MM3 (150-450); RED BLOOD COUNT 2.92 MIL/MM3 (4.00-5.30); RED CELL DISTRIBUTION WIDTH 13.4 % (11.6-17.2); WHITE BLOOD COUNT 11.1 TH/MM3 (4.0-11.0)
[2016-09-10 08:00] VITALS: BP 144/73; PULSE 99; RESP 20; TEMP 97.9; O2SAT 100
[2016-09-10 08:26] VITALS: O2SAT 98
[2016-09-10] MEDS: BUDESONIDE-FORMOTEROL 80/4.5 MCG INHALER INH SCH (09:00)
[2016-09-10] MEDS: SODIUM CHLORIDE 0.9% FLUSH 10 ML FLUSH IV FLUSH SCH (09:00)
--- NOTE | 2016-09-10 09:46 | HHI.GIFU ---
GI Follow-up Note Consult Follow-up Subjective: Patient laying in bed comfortably, no new complaints except she wants to go home. No diarrhea after being given a medication about 03:00 today. Objective: PHYSICAL EXAMINATION: Vitals signs stable No fever HEENT: EOMI ABDOMEN: Soft, nondistended, nontender; good bowel sounds DEVELOPMENT GEOLOGIST: alert Available Data (labs, X- Rays, Procedues) : Labs reviewed. Stool negative for c.difficile. ASSESSMENT/PLAN: Pancreatic head inflammation with a mildly dilated bile duct. Outpatient EUS is scheduled for October 01. She has chronic diarrhea; the tells me the etiology is unclear. Will give a prescription for cholestyramine to help bind the stool. OK to d/c home from the GI standpoint. Follow up with Dr. Arevalo in one to two weeks. It was a pleasure seeing Negin Robertson. Entered by: Shawn Cook MD Sep 10, 2016 09:46
[2016-09-10] MEDS: LEVOFLOXACIN 750 MG TAB PO SCH (10:02)
[2016-09-10] MEDS: LIPASE/PROTEASE/AMYLASE (6,000/19,000/30,000) CAP PO SCH (10:03)
[2016-09-10] MEDS: BETHANECHOL CHL 25 MG TAB PO SCH ×2 (10:03→12:08)
[2016-09-10] MEDS: ENALAPRIL MALEATE 10 MG TAB PO SCH (10:03)
[2016-09-10] MEDS: POTASSIUM CHLORIDE 20 MEQ CONTROLLED RELEASE TAB PO SCH (10:03)
[2016-09-10] MEDS: CARVEDILOL 12.5 MG TAB PO SCH (10:03)
--- NOTE | 2016-09-10 11:09 | HHI.IDPN ---
Subjective Subjective Remarks Sepsis workup initiated and patient on IV Levaquin and IV Flagyl for presumed infectious colitis. Notes reviewed reports diarrhea overnight. Cdiff negative. WBC down to normal BP ok No abdominal pain or tenderness Wants to go home. Antibiotics Levaquin po Flagyl po Lines Line sites with no e.o infection Past Medical History reviewed Allergies: Coded Allergies: Bactrim (Verified Allergy, Severe, "VOMITING", 08/15/16) Inderal (Verified Allergy, Severe, "CAUSES ASTHMA ATTACK", 08/15/16) Indocin (Verified Allergy, Severe, "NAUSEA", 08/15/16) Penicillin (Verified Allergy, Severe, "HEART FAILURE", 08/15/16) Procardia (Verified Allergy, Severe, "RAPID HEART BEAT", 08/15/16) states does not have a allergy to this medication carlos Grullon 08/15/16 Objective . Vital Signs Date Time Temp Pulse Resp B/P Pulse Ox O2 Delivery O2 Flow Rate FiO2 09/10/16 08:00 97.9 99 20 144/73 100 09/10/16 05:00 98.2 84 18 127/61 98 09/09/16 23:22 98.3 91 18 167/89 97 09/09/16 20:32 98.4 92 18 191/88 98 184/88 09/09/16 20:00 98 Nasal Cannula 2.00 09/09/16 17:30 98 Nasal Cannula 3.00 09/09/16 16:00 98.0 81 20 170/79 98 09/09/16 12:00 97.9 87 20 175/92 96 09/09/16 09/09/16 09/10/16 15:00 23:00 07:00 Intake Total 1440 ml 360 ml 960 ml Output Total 1300 ml 750 ml Balance 140 ml -390 ml 960 ml Intake Oral 1440 ml 360 ml 480 ml IV Total 480 ml Output Urine Total 1300 ml 750 ml # Voids 5 # Bowel Movements 0 4 6 . Laboratory Tests Test 09/09/16 09/10/16 20:25 06:19 White Blood Count 11.6 TH/MM3 11.1 TH/MM3 Red Blood Count 3.08 MIL/MM3 2.92 MIL/MM3 Hemoglobin 11.0 GM/DL 10.6 GM/DL Hematocrit 32.4 % 30.7 % Mean Corpuscular Volume 105.4 FL 105.2 FL Mean Corpuscular Hemoglobin 35.9 PG 36.3 PG Mean Corpuscular Hemoglobin 34.0 % 34.5 % Concent Red Cell Distribution Width 13.3 % 13.4 % Platelet Count 191 TH/MM3 158 TH/MM3 Mean Platelet Volume 9.1 FL 9.9 FL Neutrophils (%) (Auto) 69.1 % 65.1 % Lymphocytes (%) (Auto) 25.3 % 28.8 % Monocytes (%) (Auto) 4.4 % 5.3 % Eosinophils (%) (Auto) 0.6 % 0.6 % Basophils (%) (Auto) 0.6 % 0.2 % Neutrophils # (Auto) 8.0 TH/MM3 7.2 TH/MM3 Lymphocytes # (Auto) 2.9 TH/MM3 3.2 TH/MM3 Monocytes # (Auto) 0.5 TH/MM3 0.6 TH/MM3 Eosinophils # (Auto) 0.1 TH/MM3 0.1 TH/MM3 Basophils # (Auto) 0.1 TH/MM3 0.0 TH/MM3 CBC Comment DIFF FINAL DIFF FINAL Differential Comment Hematology Comments Laboratory Tests Test 09/08/16 09/09/16 09/10/16 22:45 16:06 06:19 Potassium Level 3.6 MEQ/L 4.3 MEQ/L 3.5 MEQ/L Sodium Level 140 MEQ/L 144 MEQ/L Chloride Level 112 MEQ/L 110 MEQ/L Carbon Dioxide Level 20.7 MEQ/L 25.5 MEQ/L Anion Gap 7 MEQ/L 9 MEQ/L Blood Urea Nitrogen 2 MG/DL LESS THAN 1 MG/DL Creatinine 0.64 MG/DL 0.63 MG/DL Estimat Glomerular Filtration 93 ML/MIN 94 ML/MIN Rate Random Glucose 92 MG/DL 113 MG/DL Calcium Level 8.1 MG/DL 8.0 MG/DL Phosphorus Level 2.6 MG/DL Magnesium Level 1.2 MG/DL 2.1 MG/DL Imaging Last Impressions Abdomen/Pelvis CT 09/03/16 0000 Signed Impressions: Service Date/Time: Saturday, September 03, 2016 02:00 - CONCLUSION: Long segment colitis involving the descending and sigmoid colon. Low density throughout the head of the pancreas increased since July possible pancreatitis. Free fluid around the liver, spleen and within the pelvis of uncertain etiology. Jaya Pearl MD Head CT 09/02/162322 Signed Impressions: Service Date/Time: Saturday, September 03, 2016 01:56 - CONCLUSION: Normal examination. Jaya Pearl MD Chest X-Ray 09/02/162322 Signed Impressions: Service Date/Time: Friday, September 02, 2016 23:32 - CONCLUSION: Normal examination. Jaya Pearl MD Physical Exam GENERAL: Awakens easily, not in distress SKIN: No rashes, ecchymoses or lesions. Cool and dry. HEENT: Pupils equal round and reactive. No scleral icterus. No injection or drainage. Moist oral mucosa. NECK: Trachea midline. Supple, nontender, no meningeal signs. CARDIOVASCULAR: RRR RESPIRATORY: Clear to auscultation. Breath sounds equal bilaterally. No wheezes , rales, or rhonchi. GASTROINTESTINAL: Abdomen soft, not distended, not tender. No guarding, no rebound. NO organomegaly. BS (+) normoactive MUSCULOSKELETAL: Extremities without clubbing, cyanosis, or edema. No joint effusion, or edema noted. No calf tenderness. NEUROLOGICAL: Awake and alert. Non focal Psych: cooperative IV line sites with no e.o infection. Assessment & Plan Remarks Possible Sepsis present on admission (hypothermia, elevated WBC, encephalopathy) - better - has GNR in BC no ID yet Colitis: infectious, ischemic (given her cardiac history and Afib), Cdiff Acute pancreatitis (?) Acute metabolic encephalopathy: infection, pain meds. Recs: DC Levaquin Continue oral flagyl for another 7 days. Start and continue Diflucan for another 5 days. GNR in blood was retracted and now reported as BCX with no growth in 5 days. Ok to DC from ID standpoint. Will sign off please call back if any change in clinical condition or questions. Paulina Alfaro MD Sep 10, 2016 11:09
[2016-09-10 11:23] VITALS: PULSE 93
[2016-09-10 12:00] VITALS: BP 155/73; PULSE 84; RESP 20; TEMP 97.9; O2SAT 100
[2016-09-10] MEDS ORDERED: FLUC100T2 PO (12:09)
[2016-09-10] MEDS ORDERED: POTA20TA5 PO (12:09)
[2016-09-10] MEDS ORDERED: METR-1 PO (12:09)
[2016-09-10] MEDS ORDERED: ENAL10TA PO (12:09)
--- NOTE | 2016-09-10 12:11 | HHI.FF ---
Face to Face Verification Diagnosis: (1) Colitis (2) Sepsis Physical Therapy Order: Evaluate and Treat Occupational Therapy Order: Evaluate and Treat Home Health Nursing Order: Medical education Signs/symptoms of disease process Medication education-adverse effect Nursing assessment with vital signs I have seen patient Negin Robertson on 09/10/16. My clinical findings support the need for the requested home health care services because: Ltd mobility - disease progression I certify that my clinical findings support that this patient is homebound because: Impaired cognitive ability/safety Cailin SorensonP Sep 10, 2016 12:10
--- NOTE | 2016-09-10 12:17 | HHI.DS ---
Discharge Summary Admission Date Sep 03, 2016 at 01:38 Admitting Diagnosis sepsis. GI bleed. UTI. Procedures Current Medications Medications (Trade) Dose Ordered Sig/Diane Route Start Time Stop Time Status Last Admin (Levophed-Dextrose Drip) 250 ml @ 0 mls/hr TITRATE IV 09/02/16 23:30 (Brethine Inj) 1 mg UNSCH PRN SQ 09/02/16 23:30 (Zofran Inj) 4 mg Q6H PRN IV 09/03/16 01:45 09/04/16 15:41 (Tylenol) 650 mg Q4H PRN PO 09/03/16 01:45 (NS Flush) 2 ml BID IV FLUSH 09/03/16 09:00 09/04/16 20:16 (NS Flush) 2 ml UNSCH PRN IVF 09/03/16 01:45 (Tylenol) 650 mg Q6H PRN PO 09/03/16 03:00 09/04/16 15:16 (Morphine Inj) 2 mg Q2H PRN IV 09/03/16 03:00 09/04/16 17:56 (Protonix Inj) 40 mg Q12H IV 09/03/16 03:00 09/05/16 02:30 (Ativan Inj) 2 mg Q4H PRN IV 09/03/16 03:00 09/04/16 23:30 (Zofran Inj) 4 mg Q6H PRN IV 09/03/16 03:00 (Reglan Inj) 10 mg Q6H PRN IV 09/03/16 03:00 Miscellaneous Information 1 Q361D XX 09/03/16 03:00 (Chlorhexidine 2% Cloth) 3 pack Taper DAILY@04 TOP 09/03/16 04:00 08/30/17 03:59 09/05/16 02:31 (Chlorhexidine 2% Cloth) 3 pack UNSCH PRN TOP 09/03/16 03:00 (Ventolin Hfa Inh) 1 puff Q4H PRN INH 09/03/16 03:00 (Hydrea) 500 mg DAILY PO 09/03/16 09:00 09/04/16 09:28 (Pyridium) 100 mg Q8H PRN PO 09/03/16 03:00 (Restoril) 30 mg HS PRN PO 09/03/16 03:00 09/03/16 20:40 (Desyrel) 50 mg HS PO 09/03/16 21:00 09/04/16 20:15 (Symbicort 80-4.5 Mcg Inh) 2 puff BID INH 09/03/16 09:00 09/04/16 20:16 Amylase/Lipase/ Protease 1 cap 1 cap DAILY PO 09/03/16 09:00 09/04/16 09:06 Levofloxacin/ Dextrose 150 ml @ 100 mls/hr Q24H IV 09/03/16 07:00 09/04/16 05:32 Metronidazole 100 ml @ 100 mls/hr Q8H IV 09/03/16 06:00 09/05/16 05:13 Potassium Chloride 100 ml @ 50 mls/hr Q2H PRN IV 09/03/16 14:00 (KCl 20 Meq Premix Inj) 100 ml @ 50 mls/hr Q2H PRN IV 09/03/16 14:00 Potassium Bicarb/ Potassium Chloride 50 meq 50 meq UNSCH PRN PO 09/03/16 14:00 Potassium Chloride 100 ml @ 25 mls/hr UNSCH PRN IV 09/03/16 14:00 Potassium Chloride 100 ml @ 50 mls/hr Q2H PRN IV 09/03/16 14:00 (Magnesium Sulfate Inj/NS Inj) 100 ml @ 50 mls/hr UNSCH PRN IV 09/03/16 14:00 Magnesium Oxide 800 mg 800 mg UNSCH PRN PO 09/03/16 14:00 (Magnesium Sulfate Inj/NS Inj) 100 ml @ 50 mls/hr UNSCH PRN IV 09/03/16 14:00 09/03/16 20:51 Potassium Phosphate 2000 mg 2,000 mg Q4H PRN PO 09/03/16 14:00 (Sodium Phosphate Inj/NS 250 ml Inj) 250 ml @ 42 mls/hr UNSCH PRN IV 09/03/16 14:00 09/03/16 20:51 Potassium Phosphate 2000 mg 2,000 mg UNSCH PRN PO/TUBE 09/03/16 14:00 Potassium Phosphate 30 mmol/ Sodium Chloride 260 ml @ 42 mls/hr UNSCH PRN IV 09/03/16 14:00 (D5W-NS 1000 ml Inj) 1,000 ml @ 84 mls/hr [id number] IV 09/03/16 15:15 09/05/16 02:31 (Vasotec) 10 mg BID PO 09/04/16 21:00 09/04/16 20:33 (Coreg) 12.5 mg BID PO 09/04/16 21:00 09/04/16 20:15 (Catapres) 0.1 mg Q6H PRN PO 09/04/16 10:15 09/04/16 15:16 (Lyrica) 100 mg Q8HR PO 09/04/16 22:00 09/05/16 05:13 Brief History Patient is a 66 year old female well known to our service who is admitted AMS not able to provide any detailed information when rounding. Per note patient was given a fleets enema and became diaphoretic and lethargic. EVAC was called and patient was also found to be hypotension with SBP in the 60's. She has a extensive history of abdominal pain and is followed routinely by Dr. Arevalo. She also has a history of HTN, COPD, chronic pain, myeloproliferate disorder, AFIB, Heart block, colitis, diverticulitis, and metabolic encephalopathy. On palpation patients abdomen is tender. She has been started on antibiotics and GI and ID have been consulted. CBC/BMP: 09/10/16 0619 09/10/16 0619 Significant Findings Laboratory Tests Test 09/08/16 09/09/16 09/09/16 09/10/16 07:52 16:06 20:25 06:19 Red Blood Count 2.96 MIL/MM3 3.08 MIL/MM3 2.92 MIL/MM3 (4.00-5.30) (4.00-5.30) (4.00-5.30) Hemoglobin 10.8 GM/DL 11.0 GM/DL 10.6 GM/DL (11.6-15.3) (11.6-15.3) (11.6-15.3) Hematocrit 31.5 % 32.4 % 30.7 % (35.0-46.0) (35.0-46.0) (35.0-46.0) Mean Corpuscular Volume 106.5 FL 105.4 FL 105.2 FL (80.0-100.0) (80.0-100.0) (80.0-100.0) Mean Corpuscular Hemoglobin 36.4 PG 35.9 PG 36.3 PG (27.0-34.0) (27.0-34.0) (27.0-34.0) Platelet Count 144 TH/MM3 (150-450) Sodium Level 146 MEQ/L (136-145) Potassium Level 2.8 MEQ/L (3.5-5.1) Chloride Level 115 MEQ/L 112 MEQ/L 110 MEQ/L (98-107) (98-107) (98-107) Blood Urea Nitrogen 3 MG/DL (7-18) 2 MG/DL (7-18) LESS THAN 1 MG/DL (7-18) Random Glucose 115 MG/DL 113 MG/DL (74-106) (74-106) Calcium Level 7.7 MG/DL 8.1 MG/DL 8.0 MG/DL (8.5-10.1) (8.5-10.1) (8.5-10.1) Aspartate Amino Transf 10 U/L (15-37) (AST/SGOT) Alanine Aminotransferase 8 U/L (10-53) (ALT/SGPT) Alkaline Phosphatase 41 U/L (45-117) Total Protein 5.2 GM/DL (6.4-8.2) Albumin 2.1 GM/DL (3.4-5.0) Carbon Dioxide Level 20.7 MEQ/L (21.0-32.0) Magnesium Level 1.2 MG/DL (1.5-2.5) White Blood Count 11.6 TH/MM3 11.1 TH/MM3 (4.0-11.0) (4.0-11.0) Neutrophils # (Auto) 8.0 TH/MM3 (1.8-7.7) PE at Discharge GENERAL: Cooperative SKIN: Warm and dry. HEAD: Normocephalic. EYES: No scleral icterus. No injection or drainage. NECK: Supple, trachea midline. No JVD or lymphadenopathy. CARDIOVASCULAR: Regular rate and rhythm without murmurs, gallops, or rubs. RESPIRATORY: Breath sounds equal bilaterally. No accessory muscle use. GASTROINTESTINAL: Abdomen soft, non-tender, nondistended. MUSCULOSKELETAL: No cyanosis, or edema. BACK: Nontender without obvious deformity. No CVA tenderness. Hospital Course Patient is a 66 year old female well known to our service who is admitted AMS not able to provide any detailed information when rounding. Per note patient was given a fleets enema and became diaphoretic and lethargic. EVAC was called and patient was also found to be hypotension with SBP in the 60's. She has a extensive history of abdominal pain and is followed routinely by Dr. Arevalo. She also has a history of HTN, COPD, chronic pain, myeloproliferate disorder, AFIB, Heart block, colitis, diverticulitis, and metabolic encephalopathy. On palpation patients abdomen is tender. She has been started on antibiotics and GI and ID have been consulted. Per GI patient is found to have a pancreatic head inflammation with mildly dilated bile duct. Outpatient EUS is scheduled for October 01. She has chronic diarrhea and etiology is unclear. ID recommends discharge with flagyl for 7 more days. Also diflucan for cristel in urine. Patient is discharged with [facility] with follow up appt made. Pt Condition on Discharge: Fair Discharge Disposition: Disch w/ Home Health Serv Discharge Instructions DIET: Follow Instructions for: As Tolerated, No Restrictions Activities you can perform: Regular-No Restrictions Follow up Referrals: Appointment for Follow Up Please follow up with DR. Arevalo PCP Follow-up Appt on September [address] Cifuentes at 2:30 New Medications: Enalapril (Enalapril) 10 Mg Tab 20 MG PO BID Blood Pressure Management Days 30 TAB Fluconazole (Fluconazole) 100 Mg Tab 100 MG PO DAILY Infection #5 TAB Metronidazole (Flagyl) 500 Mg Tab 500 MG PO Q8HR Infection #21 TAB Potassium Chloride Microencaps (Potassium Chloride Microencaps) 20 Meq Tab 40 MEQ PO DAILY Electrolyte Replacement #14 TAB Continued Medications: Albuterol 18 GM Inh (Ventolin Hfa 18 GM Inh) 90 Mcg/Act Aer 1 PUFF INH Q4H PRN SHORTNESS OF BREATH #1 Ref 0 INHALER Aspirin (Aspirin) 81 Mg Tabdr 81 MG PO DAILY TAB Bethanechol (Bethanechol) 25 Mg Tab 25 MG PO 1/2 hour before meal Urinary Symptom Managemen Ref 0 TAB Carvedilol (Carvedilol) 12.5 Mg Tab 12.5 MG PO BID #60 Ref 0 TAB Fluticasone-Salmeterol Inh (Advair Diskus Inh) 100-50 Mcg/Blist Aer 1 PUFF INH BID Rinse mouth after use. #1 Ref 0 INHALER Hydroxyurea (Hydroxyurea) 500 Mg Cap 500 MG PO DAILY Ref 0 CAP Levalbuterol Neb (Levalbuterol Neb) 0.63 Mg/3 Ml Neb 0.63 MG INH QID Breathing Treatment #120 Ref 0 NEBULE Omeprazole (Omeprazole) 40 Mg Cap 40 MG PO DAILY #30 Ref 0 CAP Ondansetron (Zofran) 8 Mg Tab 8 MG PO TID PRN NAUSEA OR VOMITING #30 Ref 1 TAB Pancrelipase (Creon) 3,000-9,500-15,000 Units Cap 1 CAP PO DAILY Digestive Aid #90 Ref 0 CAP Phenazopyridine (Pyridium) 100 Mg Tab 100 MG PO Q8H PRN DYSURIA #6 Ref 0 TAB Temazepam (Temazepam) 30 Mg Cap 30 MG PO HS PRN INSOMNIA #30 Ref 0 CAP Trazodone (Trazodone) 50 Mg Tab 50 MG PO HS Control Depression #30 Ref 0 TAB Discontinued Medications: Carisoprodol (Soma) 350 Mg Tab 350 MG PO BID PRN PAIN Ref 0 TAB Diphenhydramine (Benadryl Allergy) 25 Mg Tab 25 MG PO Q4HR PRN ALLERGIES Ref 0 TAB Enalapril (Enalapril) 10 Mg Tab 10 MG PO BID #60 Ref 0 TAB Oxycodone (Oxycodone) 15 Mg Tab 15 MG PO BID PRN PAIN Ref 0 TAB Oxycodone ER (Oxycontin) 40 Mg Tab 80 MG PO Q8HR Pain Management Ref 0 TAB Sumatriptan-Naproxen (Treximet) 85-500 Mg Tab 1 TAB PO ONCE May take a second dose after 2 hours if needed. Maximum 2 tabs in 24 hour period. PRN MIGRAINE HEADACHE Ref 0 TAB ([IB Dixon]) 1 PO before meals Cailin Sorenson Sep 10, 2016 12:17
[2016-09-10] MEDS ORDERED: CHOL4POW3 PO (12:19)
[2016-09-10] MEDS: HYDROXYUREA 500 MG CAP PO SCH (12:40)
[2016-09-11] MEDS ORDERED: FLUCONAZOLE 100 MG TAB PO SCH (09:00)
[2016-11-02] MEDS ORDERED: ESTR1 PO (23:02)
[2016-11-02] MEDS ORDERED: SOMA350T PO (23:02)
[2016-11-02] MEDS ORDERED: CREON24 PO (23:02)
[2016-11-02] MEDS ORDERED: ADVA250A INH (23:02)
[2016-11-02] MEDS ORDERED: HYDR500C PO (23:02)
[2016-11-02] MEDS ORDERED: BETH25TA2 PO (23:02)
[2016-11-02] MEDS ORDERED: ASPI81TA81 (23:02)
[2016-11-02] MEDS ORDERED: METH1TAB2 PO (23:02)
[2016-11-02] MEDS ORDERED: METO50TA PO (23:02)
[2016-11-02] MEDS ORDERED: TRAZ50TA12 PO (23:02)
[2016-11-02] MEDS ORDERED: ZOFR8TAB PO (23:02)
[2016-11-02] MEDS ORDERED: TEMA30CA PO (23:02)
[2016-11-02] MEDS ORDERED: PEPP90CA PO (23:02)
[2016-11-02] MEDS ORDERED: OXYC15TA PO (23:02)
[2016-11-02] MEDS ORDERED: OMEP40CA2 PO (23:02)
[2016-11-02] MEDS ORDERED: QUET1TAB7 PO (23:02)
[2016-11-02] MEDS ORDERED: SUMA85TA PO (23:02)
[2016-11-02] MEDS ORDERED: OXYC40TA20 PO (23:02)
== END 2016-09-10 13:45 | disposition home or self-care (01) | DRG 871 ==
LOC: NEPC 23:02 → NEDA 09-03 01:38 → NEDH 09-03 05:57 → HIME 09-03 14:40 → N04A 09-06 22:49
PROVIDERS: ADMIT Family Medicine; ATTEND Family Medicine
DX: A41.9 Sepsis, unspecified organism (principal); G93.41 Metabolic encephalopathy; A04.7 Enterocolitis due to Clostridium difficile; C94.6 Myelodysplastic disease, not elsewhere classified; I48.91 Unspecified atrial fibrillation; K57.92 Diverticulitis of intestine, part unspecified, without perforation or abscess without bleeding; K86.1 Other chronic pancreatitis; F11.20 Opioid dependence, uncomplicated; Z99.81 Dependence on supplemental oxygen; E86.0 Dehydration; I10 Essential (primary) hypertension; N30.00 Acute cystitis without hematuria; J44.9 Chronic obstructive pulmonary disease, unspecified; K31.84 Gastroparesis; D64.9 Anemia, unspecified; E78.00 Pure hypercholesterolemia, unspecified; E87.6 Hypokalemia; G89.4 Chronic pain syndrome; J45.909 Unspecified asthma, uncomplicated; K21.9 Gastro-esophageal reflux disease without esophagitis; K58.9 Irritable bowel syndrome, unspecified; K59.09 Other constipation; F17.200 Nicotine dependence, unspecified, uncomplicated; F32.9 Major depressive disorder, single episode, unspecified; Z86.73 Personal history of transient ischemic attack (TIA), and cerebral infarction without residual deficits; Z87.442 Personal history of urinary calculi; Z90.710 Acquired absence of both cervix and uterus; Z98.1 Arthrodesis status
CPT/HCPCS: 36600; 51702; 70450; 71010; 74177; 76937; 80048; 80053; 81001; 82140; 82550; 82805; 83605; 83690; 83735; 83880; 84100; 84132; 84155; 84443; 84484; 85007; 85014; 85018; 85025; 85027; 85610; 85730; 86850; 86900; 86901; 87040; 87086; 87205; 87493; 87641; 93005; 94640; 94664; 96365; 96366; 96375; 96376; C9113; J1956; J2060; J2270; J2405; J2765; J3370; J3475; J3480; J7030; J7042; J7050; J7613; Q9967

== ENCOUNTER 2016-09-13 10:34 | Emergency (ER) | payer MEDICARE, OTHER ==
[~2016-09-13] VITALS: Ht 152.4 cm; Wt 68.0 kg
[~2016-09-13 10:34] MED LIST changes: +CARV12.52 PO; -CARV3.12 PO; +CHOL4POW3 PO; -DOXY100C PO; +FLUC100T2 PO; +METR-1 PO; -OXYC30TA PO; -OXYC40TA9 PO; +POTA20TA5 PO; -RISP.25 PO; -SOMA350T PO; -SUMA85TA PO; -[UNRECOGNIZED DRUG - OTHER] PO; -[UNRECOGNIZED DRUG - OTHER] PO
[2016-09-13 10:43] VITALS: BP 167/75; PULSE 100; RESP 16; TEMP 97.6; O2SAT 97
--- NOTE | 2016-09-13 11:05 | PD ---
HPI Chief Complaint: Complaint Time Seen by Provider: 11:03 Travel History International Travel<30 days: No Contact w/Intl Traveler<30days: No Traveled to known affect area: No History of Present Illness HPI 66-year-old female here for evaluation of inability to urinate and suprapubic discomfort. Symptoms started this morning. Patient reports that she was able to urinate yesterday evening. She reports that this is happened to her in the past per chart review shows that she was recently hospitalized for UTI and sepsis and was discharged 3 days ago. No fevers. No hematuria. No nausea or vomiting. Elmore catheter placed by my nurse prior to my assessment with over 400 cc of slightly cloudy urine. PFSH Past Medical History Hx Anticoagulant Therapy: Yes (asa 81mg) Anemia: Yes (MYLOPROLIFERATIVE BLOOD DISORDER) Arthritis: Yes (Shoulders) Asthma: Yes Atrial Fibrillation: Yes Autoimmune Disease: No Blood Disorders: No Anxiety: No Depression: No Heart Rhythm Problems: Yes (tachy) Cancer: No Cardiovascular Problems: Yes (HTN, CHOL) High Cholesterol: Yes Chemotherapy: No Chest Pain: No Congestive Heart Failure: No COPD: Yes (EMPHYSEMA) Cerebrovascular Accident: Yes Diabetes: No Diminished Hearing: No Endocrine: No Gastrointestinal Disorders: Yes GERD: Yes Glaucoma: No Genitourinary: No Headaches: No Hepatitis: Yes (HEP-B) Hiatal Hernia: Yes Heparin Induced Thrombocytopen: No Hypertension: Yes Immune Disorder: No Implanted Vascular Access Dvce: No Kidney Stones: No Musculoskeletal: No Neurologic: No Psychiatric: No Reproductive: No Respiratory: Yes (copd, oxygen at home prn) Migraines: Yes Myocardial Infarction: No Radiation Therapy: No Renal Failure: No Seizures: No Sickle Cell Disease: No Sleep Apnea: No Thyroid Disease: No Ulcer: No ?: Not Menopausal: Yes Tubal Ligation: Yes Past Surgical History Abdominal Surgery: Yes (NAPOLEON,HERNIA REPAIR X 3) AICD: No Arteriovenous Shunt: No Cardiac Surgery: No Cholecystectomy: Yes Ear Surgery: No Endocrine Surgery: No Eye Surgery: No Genitourinary Surgery: Yes (BLADDER SUSPENSION) Gynecologic Surgery: Yes (LT BREAST LUMPECTOMY) Hysterectomy: Yes Insulin Pump: No Joint Replacement: No Neurologic Surgery: No Oral Surgery: No Pacemaker: No Thoracic Surgery: No Other Surgery: Yes Social History Alcohol Use: No Tobacco Use: Yes (3-4 DAILY) Substance Use: No Allergies-Medications (Allergen,Severity, Reaction): Coded Allergies: Bactrim (Verified Allergy, Severe, "VOMITING", 09/13/16) Inderal (Verified Allergy, Severe, "CAUSES ASTHMA ATTACK", 09/13/16) Indocin (Verified Allergy, Severe, "NAUSEA", 09/13/16) Penicillin (Verified Allergy, Severe, "HEART FAILURE", 09/13/16) Procardia (Verified Allergy, Severe, "RAPID HEART BEAT", 09/13/16) states does not have a allergy to this medication carlos Grullon 08/15/16 Reported Meds & Prescriptions Reported Meds & Active Scripts Active Cholestyramine 4 Gm/Dose Powd 4 Gm PO BID 1 level scoopful of powder contains 4 grams of cholestyramine. Potassium Chloride Microencaps 20 Meq Tab 40 Meq PO DAILY Enalapril (Enalapril Maleate) 10 Mg Tab 20 Mg PO BID 30 Days Fluconazole 100 Mg Tab 100 Mg PO DAILY Flagyl (Metronidazole) 500 Mg Tab 500 Mg PO Q8HR Pyridium (Phenazopyridine HCl) 100 Mg Tab 100 Mg PO Q8H PRN Zofran (Ondansetron HCl) 8 Mg Tab 8 Mg PO TID PRN Reported Bethanechol 25 Mg Tab 25 Mg PO 1/2 HOUR BEFORE MEAL Carvedilol 12.5 Mg Tab 12.5 Mg PO BID Creon (Pancrelipase) 3,000-9,500-15,000 Units Cap 1 Cap PO DAILY Temazepam 30 Mg Cap 30 Mg PO HS PRN Trazodone (Trazodone HCl) 50 Mg Tab 50 Mg PO HS Omeprazole 40 Mg Cap 40 Mg PO DAILY Ventolin Hfa 18 GM Inh (Albuterol Sulfate) 90 Mcg/Act Aer 1 Puff INH Q4H PRN Advair Diskus Inh (Fluticasone-Salmeterol Inh) 100-50 Mcg/Blist Aer 1 Puff INH BID Rinse mouth after use. Levalbuterol Neb (Levalbuterol HCl) 0.63 Mg/3 Ml Neb 0.63 Mg INH QID Aspirin 81 Mg Tabdr 81 Mg PO DAILY Hydroxyurea 500 Mg Cap 500 Mg PO DAILY Review of Systems Except as stated in HPI: all other systems reviewed are Neg Physical Exam Narrative GENERAL: Well-developed, well-nourished, no acute distress. SKIN: Focused skin assessment warm/dry. No rash. No pallor. HEAD: Atraumatic. Normocephalic. EYES: Pupils equal and round. No scleral icterus. No injection or drainage. ENT: Mucous membranes pink and moist. CARDIOVASCULAR: Regular rate and rhythm. No murmur appreciated. RESPIRATORY: No accessory muscle use. Clear to auscultation. Breath sounds equal bilaterally. GASTROINTESTINAL: Abdomen soft, nondistended. Mild suprapubic tenderness without peritoneal signs. MUSCULOSKELETAL: No obvious deformities. No clubbing. No cyanosis. No edema. NEUROLOGICAL: Awake and alert. No obvious cranial nerve deficits. Motor grossly within normal limits. Normal speech. PSYCHIATRIC: Appropriate mood and affect; insight and judgment normal. Data Data Last Documented VS Vital Signs Date Time Temp Pulse Resp B/P Pulse Ox O2 Delivery O2 Flow Rate FiO2 09/13/16 10:57 16 09/13/16 10:43 97.6 100 167/75 97 Orders Urinalysis - C+S If Indicated (09/13/16 10:58) Urinary Catheter Insert/Apply (09/13/16 11:10) Bag, Leg 32oz Sterile Large Ea (09/13/16 11:10) Labs Laboratory Tests Test 09/13/16 11:00 Urine Collection Type CATH Urine Color YELLOW Urine Turbidity CLEAR Urine pH 6.5 Urine Specific Tillson 1.005 Urine Protein NEG mg/dL Urine Glucose (UA) NEG mg/dL Urine Ketones NEG mg/dL Urine Occult Blood NEG Urine Nitrite NEG Urine Bilirubin NEG Urine Leukocyte Esterase NEG Urine RBC 0-3 /hpf Urine WBC 0-2 /hpf Urine Transitional Epithelial 0-5 /hpf Cells Urine Amorphous Sediment FEW Microscopic Urinalysis Comment CATH-CULT NOT IND Urine Collection Time 110 MDM Medical Decision Making Medical Screen Exam Complete: Yes Emergency Medical Condition: Yes Differential Diagnosis Urinary retention, UTI Narrative Course Vital signs reviewed. Elmore catheter placed with over 500 cc of clear urine output. UA is not suggestive of UTI, does however show transitional epithelial cells and amorphous sediment. Patient coincidentally has an appointment with her urologist Dr. Amin on Thursday in 2 days. She will be sent home with a leg bag with her Elmore catheter in place. Patient and the patient's were informed on when to return to the emergency department. They were also provided a copy of the UA results to show to their urologist. They verbalize understanding and agreement with plan. Diagnosis Primary Impression: Urinary retention Referrals: Urologist 2 days Additional Instructions: Follow-up with your urologist as scheduled in 2 days. Return to the emergency department for worsening symptoms or any other concerns. Disposition: 01 DISCHARGE HOME Condition: Angel Luis Guerrero MD Sep 13, 2016 11:05
[2016-09-13 11:18] LABS: BLOOD, URINE NEG (NEG); GLUCOSE,URINE NEG (NEG); KETONE, URINE NEG (NEG); NITRITE,URINE NEG (NEG); PH, URINE 6.5 (5.0-8.5)
[2016-09-13 11:21] LABS: METHOD OF COLLECTION CATH; URINE COLOR YELLOW (YELLW/STRAW)
[2016-09-13 11:23] LABS: COMMENT (UR) CATH-CULT NOT IND; CULTURE IF INDICATED CATH CULTURE NOT IND; RBC, URINE 0-3 /hpf (0-3); WBC, URINE 0-2 /hpf (0-5)
[2016-09-13 11:24] LABS: TRANSITIONAL EPI CELLS, URINE 0-5 /hpf
[2016-09-13] MEDS ORDERED: METH1TAB2 PO (11:48)
[2016-09-13] MEDS ORDERED: LACTCAP8 PO (11:48)
[2016-09-13] MEDS ORDERED: ESTR42.5V VAGINAL (11:48)
[2016-09-13 12:47] VITALS: BP 170/65
[2016-11-02] MEDS ORDERED: ESTR1 PO (23:02)
[2016-11-02] MEDS ORDERED: CREON24 PO (23:02)
[2016-11-02] MEDS ORDERED: OXYC15TA PO (23:02)
[2016-11-02] MEDS ORDERED: SUMA85TA PO (23:02)
[2016-11-02] MEDS ORDERED: HYDR500C PO (23:02)
[2016-11-02] MEDS ORDERED: ADVA250A INH (23:02)
[2016-11-02] MEDS ORDERED: PEPP90CA PO (23:02)
[2016-11-02] MEDS ORDERED: OXYC40TA20 PO (23:02)
[2016-11-02] MEDS ORDERED: OMEP40CA2 PO (23:02)
[2016-11-02] MEDS ORDERED: TRAZ50TA12 PO (23:02)
[2016-11-02] MEDS ORDERED: QUET1TAB7 PO (23:02)
[2016-11-02] MEDS ORDERED: BETH25TA2 PO (23:02)
[2016-11-02] MEDS ORDERED: METO50TA PO (23:02)
[2016-11-02] MEDS ORDERED: TEMA30CA PO (23:02)
[2016-11-02] MEDS ORDERED: SOMA350T PO (23:02)
[2016-11-02] MEDS ORDERED: METH1TAB2 PO (23:02)
[2016-11-02] MEDS ORDERED: ASPI81TA81 (23:02)
[2016-11-02] MEDS ORDERED: ZOFR8TAB PO (23:02)
== END 2016-09-13 12:49 | disposition home or self-care (01) ==
LOC: PHED 10:34
DX: R33.9 Retention of urine, unspecified (principal)
CPT/HCPCS: 51702; 81001

== ENCOUNTER 2016-09-15 06:45 | Emergency (ER) | payer MEDICARE, OTHER ==
[~2016-09-15] VITALS: Ht 154.9 cm; Wt 60.0 kg
[~2016-09-15 06:45] MED LIST changes: +ESTR42.5V VAGINAL; +LACTCAP8 PO; +METH1TAB2 PO
[2016-09-15 06:52] VITALS: BP 131/99; PULSE 109; RESP 16; TEMP 97.8; O2SAT 95
--- NOTE | 2016-09-15 07:53 | PD ---
HPI Chief Complaint: Complaint Time Seen by Provider: 07:10 Travel History International Travel<30 days: No Contact w/Intl Traveler<30days: No Traveled to known affect area: No History of Present Illness HPI 66-year-old female notes that she wants to have her catheter removed. She was just here 2 days ago and had it placed for urinary retention without associated urinary tract infection. Her states he thought that she had follow-up with Dr. Hudson today but instead she has follow-up with her GI specialist. Since she does not have follow-up until next week he didn't know what to do but to bring her here to be checked out. She has not been having any fever, vomiting or other complaints other than wanting the catheter removed. PFSH Past Medical History Hx Anticoagulant Therapy: Yes (asa 81mg) Anemia: Yes (MYLOPROLIFERATIVE BLOOD DISORDER) Arthritis: Yes (Shoulders) Asthma: Yes Atrial Fibrillation: Yes Autoimmune Disease: No Blood Disorders: No Anxiety: No Depression: No Heart Rhythm Problems: Yes (tachy) Cancer: No Cardiovascular Problems: Yes (HTN, CHOL) High Cholesterol: Yes Chemotherapy: No Chest Pain: No Congestive Heart Failure: No COPD: Yes (EMPHYSEMA) Cerebrovascular Accident: Yes Diabetes: No Diminished Hearing: No Endocrine: No Gastrointestinal Disorders: Yes GERD: Yes Glaucoma: No Genitourinary: No Headaches: No Hepatitis: Yes (HEP-B) Hiatal Hernia: Yes Heparin Induced Thrombocytopen: No Hypertension: Yes Immune Disorder: No Implanted Vascular Access Dvce: No Kidney Stones: No Musculoskeletal: No Neurologic: No Psychiatric: No Reproductive: No Respiratory: Yes (copd, oxygen at home prn) Migraines: Yes Myocardial Infarction: No Radiation Therapy: No Renal Failure: No Seizures: No Sickle Cell Disease: No Sleep Apnea: No Thyroid Disease: No Ulcer: No ?: Not Menopausal: Yes Tubal Ligation: Yes Past Surgical History Abdominal Surgery: Yes (NAPOLEON,HERNIA REPAIR X 3) AICD: No Arteriovenous Shunt: No Cardiac Surgery: No Cholecystectomy: Yes Ear Surgery: No Endocrine Surgery: No Eye Surgery: No Genitourinary Surgery: Yes (BLADDER SUSPENSION) Gynecologic Surgery: Yes (LT BREAST LUMPECTOMY) Hysterectomy: Yes Insulin Pump: No Joint Replacement: No Neurologic Surgery: No Oral Surgery: No Pacemaker: No Thoracic Surgery: No Other Surgery: Yes Social History Alcohol Use: No Tobacco Use: Yes (3-4 DAILY) Substance Use: No Allergies-Medications (Allergen,Severity, Reaction): Coded Allergies: Bactrim (Verified Allergy, Severe, "VOMITING", 09/15/16) Inderal (Verified Allergy, Severe, "CAUSES ASTHMA ATTACK", 09/15/16) Indocin (Verified Allergy, Severe, "NAUSEA", 09/15/16) Penicillin (Verified Allergy, Severe, "HEART FAILURE", 09/15/16) Procardia (Verified Allergy, Severe, "RAPID HEART BEAT", 09/15/16) states does not have a allergy to this medication carlos Grullon 08/15/16 Reported Meds & Prescriptions Reported Meds & Active Scripts Active Macrobid (Nitrofurantoin Monoh/Nitrofur Macro) 100 Mg Cap 100 Mg PO BID 3 Days Cholestyramine 4 Gm/Dose Powd 4 Gm PO BID 1 level scoopful of powder contains 4 grams of cholestyramine. Potassium Chloride Microencaps 20 Meq Tab 40 Meq PO DAILY Enalapril (Enalapril Maleate) 10 Mg Tab 20 Mg PO BID 30 Days Fluconazole 100 Mg Tab 100 Mg PO DAILY Flagyl (Metronidazole) 500 Mg Tab 500 Mg PO Q8HR Pyridium (Phenazopyridine HCl) 100 Mg Tab 100 Mg PO Q8H PRN Zofran (Ondansetron HCl) 8 Mg Tab 8 Mg PO TID PRN Reported Estrace Vaginal (Estradiol) 0.01% Cream 1 Appl VAGINAL BID Methenamine Hippurate 1 Gm Tab 1 Gm PO BID Probiotic (Lactobacillus Acidophilus) 1 Cap Cap 2 Cap PO TIDAC Bethanechol 25 Mg Tab 25 Mg PO 1/2 HOUR BEFORE MEAL Carvedilol 12.5 Mg Tab 12.5 Mg PO BID Creon (Pancrelipase) 3,000-9,500-15,000 Units Cap 1 Cap PO DAILY Temazepam 30 Mg Cap 30 Mg PO HS PRN Trazodone (Trazodone HCl) 50 Mg Tab 50 Mg PO HS Omeprazole 40 Mg Cap 40 Mg PO DAILY Ventolin Hfa 18 GM Inh (Albuterol Sulfate) 90 Mcg/Act Aer 1 Puff INH Q4H PRN Advair Diskus Inh (Fluticasone-Salmeterol Inh) 100-50 Mcg/Blist Aer 1 Puff INH BID Rinse mouth after use. Levalbuterol Neb (Levalbuterol HCl) 0.63 Mg/3 Ml Neb 0.63 Mg INH QID Aspirin 81 Mg Tabdr 81 Mg PO DAILY Hydroxyurea 500 Mg Cap 500 Mg PO DAILY Review of Systems Except as stated in HPI: all other systems reviewed are Neg Physical Exam Narrative GENERAL: Well-nourished, well-developed patient. SKIN: Warm and dry. HEAD: Normocephalic and atraumatic. EYES: No injection or drainage. ENT: No nasal drainage noted. NECK: Supple, trachea midline. CARDIOVASCULAR: Regular rate and rhythm RESPIRATORY: No increased effort. No accessory muscle use. GASTROINTESTINAL: Abdomen soft, non-tender, nondistended. NEUROLOGICAL: Awake. Moves extremities. Normal speech. Data Data Last Documented VS Vital Signs Date Time Temp Pulse Resp B/P Pulse Ox O2 Delivery O2 Flow Rate FiO2 09/15/16 08:17 92 20 138/78 99 09/15/16 06:52 97.8 [facility] Medical Decision Making Medical Screen Exam Complete: Yes Emergency Medical Condition: Yes Medical Record Reviewed: Yes (past history confirm, recent visit for retention without concurrent UTI, follow up with Dr. Hudson on Thursday noted) Interpretation(s) Vital Signs Date Time Temp Pulse Resp B/P Pulse Ox O2 Delivery O2 Flow Rate FiO2 09/15/16 06:52 97.8 109 16 131/99 95 Differential Diagnosis Urinary retention, Elmore catheter, UTI Narrative Course Will discuss with urologist Patient denies any new complaints, all questions answered. Patient knows that follow up is incumbent on them and to return to the emergency room immediately if new or worsening symptoms develop. Patient given strict return precautions, vitals reviewed and are normal, agrees to further workup as an outpatient. at bedside Physician Communication Physician Communication dr hudson's pa states to place on 3 days of macrobid and will arrange follow up on thursday Diagnosis Primary Impression: Elmore catheter in place Patient Instructions: General Instructions Additional Instructions: follow with dr hudson thursday-they will call to set up, return as needed, take antibiotic as directed Med/Other Pt SpecificInfo: Prescription(s) given Scripts Nitrofurantoin Monohydrate Macrocrystals (Macrobid)100 Mg [id number] Mg PO BID 3 Days Prov:Melonie Cohn MD 09/15/16 Disposition: 01 DISCHARGE HOME Condition: Stable Melonie Cohn MD September 15, 2016 07:53
[2016-09-15] MEDS ORDERED: MACR100C2 PO (08:01)
[2016-09-15 08:17] VITALS: BP 138/78
[2016-09-15] MEDS ORDERED: CEPH-460 PO (23:37)
[2016-11-02] MEDS ORDERED: ADVA250A INH (23:02)
[2016-11-02] MEDS ORDERED: OXYC40TA20 PO (23:02)
[2016-11-02] MEDS ORDERED: SOMA350T PO (23:02)
[2016-11-02] MEDS ORDERED: QUET1TAB7 PO (23:02)
[2016-11-02] MEDS ORDERED: HYDR500C PO (23:02)
[2016-11-02] MEDS ORDERED: OXYC15TA PO (23:02)
[2016-11-02] MEDS ORDERED: ASPI81TA81 (23:02)
[2016-11-02] MEDS ORDERED: METH1TAB2 PO (23:02)
[2016-11-02] MEDS ORDERED: ESTR1 PO (23:02)
[2016-11-02] MEDS ORDERED: PEPP90CA PO (23:02)
[2016-11-02] MEDS ORDERED: SUMA85TA PO (23:02)
[2016-11-02] MEDS ORDERED: ZOFR8TAB PO (23:02)
[2016-11-02] MEDS ORDERED: METO50TA PO (23:02)
[2016-11-02] MEDS ORDERED: TRAZ50TA12 PO (23:02)
[2016-11-02] MEDS ORDERED: CREON24 PO (23:02)
[2016-11-02] MEDS ORDERED: TEMA30CA PO (23:02)
[2016-11-02] MEDS ORDERED: BETH25TA2 PO (23:02)
[2016-11-02] MEDS ORDERED: OMEP40CA2 PO (23:02)
== END 2016-09-15 08:20 | disposition home or self-care (01) ==
LOC: PHED 06:45
DX: Z46.6 Encounter for fitting and adjustment of urinary device (principal)
CPT/HCPCS: 99283

== ENCOUNTER 2016-09-15 21:29 | Emergency (ER) | payer MEDICARE, OTHER ==
[~2016-09-15] VITALS: Ht 154.9 cm; Wt 72.0 kg
[~2016-09-15 21:29] MED LIST changes: +MACR100C2 PO
[2016-09-15 21:35] VITALS: BP 116/74; PULSE 104; RESP 20; TEMP 97.8; O2SAT 92
[2016-09-15 21:42] VITALS: BP 116/74; O2SAT 92
[2016-09-15] MEDS ORDERED: SODIUM CHLORIDE 0.9% FLUSH 10 ML FLUSH IVF PRN (21:45)
--- NOTE | 2016-09-15 22:21 | RADRPT ---
EXAM DATE/TIME: 09/15/2016 21:35 [facility] COMPARISON: CHEST SINGLE AP, September 02, 2016, 23:32. INDICATIONS : Chest pain. MEDICAL HISTORY : Cardiovascular disease. Hypertension. Chronic obstructive pulmonary disease.GERD. SURGICAL HISTORY : Cholecystectomy. ENCOUNTER: Initial ACUITY: 1 day PAIN SCORE: 7/10 LOCATION: Bilateral chest FINDINGS: A single view of the chest demonstrates the lungs to be symmetrically aerated without evidence of mas s, infiltrate or effusion. The cardiomediastinal contours are unremarkable. Osseous structures are intact. CONCLUSION: No evidence of acute cardiopulmonary disease. Mayur Andino MD on September 15, 2016 at 22:19 Board Certified Radiologist. This report was verified electronically.
--- NOTE | 2016-09-15 22:21 | PD ---
HPI . Altered mental status Chief Complaint: Chest Pain Time Seen by Provider: 21:36 Travel History International Travel<30 days: No Contact w/Intl Traveler<30days: No Traveled to known affect area: No History of Present Illness HPI The patient presents to us via [facility] with the chief complaint chest pain and shortness of breath. Family reported altered mental status to EMS. The patient denies any chest pain or shortness of breath to me. Actually, the patient's only complaint to me was that her tailbone hurt from sitting on our stretcher. This patient has had a recent hospitalization from . She was admitted at that time for altered mental status and found to have a UTI, sepsis and GI bleed. She was eventually discharged home with home health. Myeloproliferative disorder, atrial fibrillation and chronic diarrhea. The patient does have an indwelling Elmore catheter because of urinary retention associated with UTI. This patient is unable to provide me any further meaningful history. PFSH Past Medical History Hx Anticoagulant Therapy: Yes (asa 81mg) Anemia: Yes (MYLOPROLIFERATIVE BLOOD DISORDER) Arthritis: Yes (Shoulders) Asthma: Yes Atrial Fibrillation: Yes Autoimmune Disease: No Blood Disorders: No Anxiety: No Depression: No Heart Rhythm Problems: Yes (tachy) Cancer: No Cardiovascular Problems: Yes (HTN, CHOL) High Cholesterol: Yes Chemotherapy: No Chest Pain: No Congestive Heart Failure: No COPD: Yes (EMPHYSEMA) Cerebrovascular Accident: Yes Diabetes: No Diminished Hearing: No Endocrine: No Gastrointestinal Disorders: Yes GERD: Yes Glaucoma: No Genitourinary: No Headaches: No Hepatitis: Yes (HEP-B) Hiatal Hernia: Yes Heparin Induced Thrombocytopen: No Hypertension: Yes Immune Disorder: No Implanted Vascular Access Dvce: No Kidney Stones: No Musculoskeletal: No Neurologic: No Psychiatric: No Reproductive: No Respiratory: Yes (copd, oxygen at home prn) Migraines: Yes Myocardial Infarction: No Radiation Therapy: No Renal Failure: No Seizures: No Sickle Cell Disease: No Sleep Apnea: No Thyroid Disease: No Ulcer: No Menopausal: Yes Tubal Ligation: Yes Past Surgical History Abdominal Surgery: Yes (NAPOLEON,HERNIA REPAIR X 3) AICD: No Arteriovenous Shunt: No Cardiac Surgery: No Cholecystectomy: Yes Ear Surgery: No Endocrine Surgery: No Eye Surgery: No Genitourinary Surgery: Yes (BLADDER SUSPENSION) Gynecologic Surgery: Yes (LT BREAST LUMPECTOMY) Hysterectomy: Yes Insulin Pump: No Joint Replacement: No Neurologic Surgery: No Oral Surgery: No Pacemaker: No Thoracic Surgery: No Other Surgery: Yes Social History Alcohol Use: Yes Tobacco Use: Yes (3-4 DAILY) Substance Use: No Allergies-Medications (Allergen,Severity, Reaction): Coded Allergies: Bactrim (Verified Allergy, Severe, "VOMITING", 09/15/16) Inderal (Verified Allergy, Severe, "CAUSES ASTHMA ATTACK", 09/15/16) Indocin (Verified Allergy, Severe, "NAUSEA", 09/15/16) Penicillin (Verified Allergy, Severe, "HEART FAILURE", 09/15/16) Procardia (Verified Allergy, Severe, "RAPID HEART BEAT", 09/15/16) states does not have a allergy to this medication carlos Grullon 08/15/16 Lanoxin (Verified Adverse Reaction, Unknown, Arrhythmias, 09/15/16) Reported Meds & Prescriptions Reported Meds & Active Scripts Active Macrobid (Nitrofurantoin Monoh/Nitrofur Macro) 100 Mg Cap 100 Mg PO BID 3 Days Cholestyramine 4 Gm/Dose Powd 4 Gm PO BID 1 level scoopful of powder contains 4 grams of cholestyramine. Potassium Chloride Microencaps 20 Meq Tab 40 Meq PO DAILY Enalapril (Enalapril Maleate) 10 Mg Tab 20 Mg PO BID 30 Days Fluconazole 100 Mg Tab 100 Mg PO DAILY Flagyl (Metronidazole) 500 Mg Tab 500 Mg PO Q8HR Pyridium (Phenazopyridine HCl) 100 Mg Tab 100 Mg PO Q8H PRN Zofran (Ondansetron HCl) 8 Mg Tab 8 Mg PO TID PRN Reported Estrace Vaginal (Estradiol) 0.01% Cream 1 Appl VAGINAL BID Methenamine Hippurate 1 Gm Tab 1 Gm PO BID Probiotic (Lactobacillus Acidophilus) 1 Cap Cap 2 Cap PO TIDAC Bethanechol 25 Mg Tab 25 Mg PO 1/2 HOUR BEFORE MEAL Carvedilol 12.5 Mg Tab 12.5 Mg PO BID Creon (Pancrelipase) 3,000-9,500-15,000 Units Cap 1 Cap PO DAILY Temazepam 30 Mg Cap 30 Mg PO HS PRN Trazodone (Trazodone HCl) 50 Mg Tab 50 Mg PO HS Omeprazole 40 Mg Cap 40 Mg PO DAILY Ventolin Hfa 18 GM Inh (Albuterol Sulfate) 90 Mcg/Act Aer 1 Puff INH Q4H PRN Advair Diskus Inh (Fluticasone-Salmeterol Inh) 100-50 Mcg/Blist Aer 1 Puff INH BID Rinse mouth after use. Levalbuterol Neb (Levalbuterol HCl) 0.63 Mg/3 Ml Neb 0.63 Mg INH QID Aspirin 81 Mg Tabdr 81 Mg PO DAILY Hydroxyurea 500 Mg Cap 500 Mg PO DAILY Review of Systems Except as stated in HPI: all other systems reviewed are Neg General / Constitutional: No: Fever, Chills Cardiovascular: No: Chest Pain or Discomfort Respiratory: No: Shortness of Breath Gastrointestinal: No: Nausea, Vomiting, Diarrhea, Abdominal Pain Physical Exam Narrative GENERAL: This is an elderly thin woman who is lying on the bed smiling and in no acute distress. SKIN: Warm and dry. HEAD: Atraumatic. Normocephalic. EYES: Pupils equal and round. Extraocular movements are intact. ENT: No nasal bleeding or discharge. Mucous membranes pink and moist. NECK: Trachea midline. Neck is supple. CARDIOVASCULAR: Regular rate and rhythm. Heart sounds are normal. RESPIRATORY: No accessory muscle use. Lungs are clear anteriorly. She is on oxygen at 3 L which is what she is on at home. GASTROINTESTINAL: Abdomen soft, non-tender, nondistended. MUSCULOSKELETAL: No obvious deformities. No edema. NEUROLOGICAL: Awake and alert. No obvious cranial nerve deficits. Motor grossly within normal limits. Normal speech. She is oriented to person and place. She does not know why she is here. PSYCHIATRIC: Appropriate mood and affect.. Data Data Last Documented VS Vital Signs Date Time Temp Pulse Resp B/P Pulse Ox O2 Delivery O2 Flow Rate FiO2 09/15/16 21:42 92 Nasal Cannula 3 09/15/16 21:42 116/74 09/15/16 21:35 97.8 104 20 Orders Electrocardiogram (09/15/16 21:38) Ckmb (Isoenzyme) Profile (09/15/16 21:38) Complete Blood Count With Diff (09/15/16 21:38) Comprehensive Metabolic Panel (09/15/16 21:38) Magnesium (Mg) (09/15/16 21:38) Prothrombin Time / Inr (Pt) (09/15/16 21:38) Act Partial Throm Time (Ptt) (09/15/16 21:38) Troponin I (09/15/16 21:38) Chest, Single Ap (09/15/16 21:38) Ecg Monitoring (09/15/16 21:38) Bilateral Bp Monitoring (09/15/16 21:38) Iv Access Insert/Monitor (09/15/16 21:38) Oximetry (09/15/16 21:38) Oxygen Administration (09/15/16 21:38) Sodium Chloride 0.9% Flush (Ns Flush) (09/15/16 21:45) Urinalysis - C+S If Indicated (09/15/16 21:38) Urine Culture (09/15/16 21:50) Ceftriaxone Inj (Rocephin Inj) (09/15/16 22:45) Labs Laboratory Tests Test 09/15/16 09/15/16 21:50 22:05 Urine Color YELLOW Urine Turbidity CLEAR Urine pH 7.5 Urine Specific [place] 1.006 Urine Protein 30 mg/dL Urine Glucose (UA) NEG mg/dL Urine Ketones NEG mg/dL Urine Occult Blood TRACE Urine Nitrite NEG Urine Bilirubin NEG Urine Urobilinogen LESS THAN 2.0 MG/DL Urine Leukocyte Esterase LARGE Urine RBC 3 /hpf Urine WBC 21 /hpf Urine Squamous Epithelial <1 /hpf Cells Urine Bacteria FEW /hpf Microscopic Urinalysis Comment CATH-CULTURE IND White Blood Count 12.8 TH/MM3 Red Blood Count 3.10 MIL/MM3 Hemoglobin 11.1 GM/DL Hematocrit 33.4 % Mean Corpuscular Volume 108.0 FL Mean Corpuscular Hemoglobin 35.9 PG Mean Corpuscular Hemoglobin 33.3 % Concent Red Cell Distribution Width 14.0 % Platelet Count 207 TH/MM3 Mean Platelet Volume 8.8 FL Neutrophils (%) (Auto) 73.0 % Lymphocytes (%) (Auto) 20.3 % Monocytes (%) (Auto) 6.1 % Eosinophils (%) (Auto) 0.4 % Basophils (%) (Auto) 0.2 % Neutrophils # (Auto) 9.3 TH/MM3 Lymphocytes # (Auto) 2.6 TH/MM3 Monocytes # (Auto) 0.8 TH/MM3 Eosinophils # (Auto) 0.1 TH/MM3 Basophils # (Auto) 0.0 TH/MM3 CBC Comment DIFF FINAL Differential Comment Prothrombin Time 12.1 SEC Prothromb Time International 1.1 RATIO Ratio Activated Partial 28.0 SEC Thromboplast Time Sodium Level 140 MEQ/L Potassium Level 3.5 MEQ/L Chloride Level 103 MEQ/L Carbon Dioxide Level 31.6 MEQ/L Anion Gap 5 MEQ/L Blood Urea Nitrogen 4 MG/DL Creatinine 0.65 MG/DL Estimat Glomerular Filtration 91 ML/MIN Rate Random Glucose 128 MG/DL Calcium Level 8.2 MG/DL Magnesium Level 1.3 MG/DL Total Bilirubin 0.5 MG/DL Aspartate Amino Transf 15 U/L (AST/SGOT) Alanine Aminotransferase 10 U/L (ALT/SGPT) Alkaline Phosphatase 50 U/L Total Creatine Kinase 48 U/L Troponin I LESS THAN 0.02 NG/ML Total Protein 6.2 GM/DL Albumin 2.9 GM/DL [facility] Medical Decision Making Medical Screen Exam Complete: Yes Emergency Medical Condition: Yes Interpretation(s) EKG shows a sinus rhythm with a rate of [address] segment elevation or depression. Differential Diagnosis Differential diagnosis of chest pain includes but is not limited to musculoskeletal pain, pulmonary embolism, acute coronary syndrome, pneumonia, pleurisy Differential diagnosis of dyspnea includes but is not limited to congestive heart failure, pneumonia, wheezing, pneumothorax, pulmonary embolism Differential diagnosis of altered mental status includes but is not limited to infection, electrolyte abnormality, neurological event, intoxication Narrative Course Patient presents to us with 2 reported complaints. The first was chest pain and shortness of breath. The patient denies these to me. The second complaint is altered mental status. According to her most recent hospitalization a few weeks ago, her mental status appears to be about the same. I have ordered a chest pain workup with the addition of a UA because of the altered mental status. However, her mental status may be at her baseline. Her UA does show UTI. It looks like her most recent UTI was treated with Macrobid. I will give her a dose of Rocephin. If she goes home, I will discharge her on Keflex. CBC & BMP Diagram 09/15/16 22:05 Cardiac enzymes are negative. Last Impressions Chest X-Ray [id number] Signed Impressions: Service Date/Time: Thursday, September 15, 2016 21:35 - CONCLUSION: No evidence of acute cardiopulmonary disease. Mayur Andino MD The chest x-ray was independently viewed by me. Patient reports that she is feeling pretty well and would like to go home. I think that this is reasonable. Diagnosis Primary Impression: UTI (urinary tract infection) Qualified Code: T83.511A - Urinary tract infection associated with indwelling urethral catheter, initial encounter Patient Instructions: Catheter-associated Urinary Tract Infection (GEN), General Instructions Med/Other Pt SpecificInfo: Prescription(s) given Scripts Cephalexin (Keflex)500 Mg Rxw948 Mg PO Q8H #30 CAP Ref 0 Prov:Mariah Oquendo MD 09/15/16 Disposition: 01 DISCHARGE HOME Condition: Stable Mariah Oquendo MD September 15, 2016 22:21
[2016-09-15 22:31] LABS: BACTERIA, URINE FEW /hpf; BLOOD, URINE TRACE (NEG); GLUCOSE,URINE NEG (NEG); KETONE, URINE NEG (NEG); NITRITE,URINE NEG (NEG); PH, URINE 7.5 (5.0-8.5); SQUAMOUS EPITHELIAL CELL URINE <1 /hpf (0-5); URINE COLOR YELLOW (YELLW/STRAW)
[2016-09-15 22:33] LABS: COMMENT (UR) CATH-CULTURE IND; CULTURE IF INDICATED CATH CULTURE IND
[2016-09-15] MEDS ORDERED: cefTRIAXone INJ 1,000 MG in SODIUM CHLORIDE 0.9% INJ 100 ML IV ONE (22:45)
[2016-09-15 22:58] LABS: ALT (GPT) 10 U/L (10-53); ANION GAP 5 MEQ/L (5-15); AST (GOT) 15 U/L (15-37); BICARBONATE 31.6 MEQ/L (21.0-32.0); BLOOD UREA NITROGEN 4 MG/DL (7-18); CHLORIDE 103 MEQ/L (98-107); GLOMERULAR FILTRATION RATE 91 ML/MIN (>89); INTERNATIONAL NORMALIZED RATIO 1.1 RATIO; MAGNESIUM 1.3 MG/DL (1.5-2.5); POTASSIUM 3.5 MEQ/L (3.5-5.1); PROTHROMBIN TIME - PATIENT 12.1 SEC (9.8-11.6); SODIUM (NA) 140 MEQ/L (136-145)
[2016-09-15 23:02] LABS: ALKALINE PHOSPHATASE 50 U/L (45-117); TOTAL BILIRUBIN ADULT 0.5 MG/DL (0.2-1.0)
[2016-09-15 23:08] LABS: AUTOMATED NEUTROPHIL # 9.3 TH/MM3 (1.8-7.7); BASOPHIL % 0.2 % (0.0-2.0); EOSINOPHIL # 0.1 TH/MM3 (0-0.4); EOSINOPHIL % 0.4 % (0.0-4.0); HEMATOCRIT 33.4 % (35.0-46.0); HEMO FLAGS DIFF FINAL; LYMPH % 20.3 % (9.0-44.0); LYMPHOCYTE # 2.6 TH/MM3 (1.0-4.8); MEAN CORPUSCULAR HEMOGLOBIN 35.9 PG (27.0-34.0); MEAN CORPUSCULAR HGB CONC 33.3 % (32.0-36.0); MONO % 6.1 % (0.0-8.0); PLATELET COUNT 207 TH/MM3 (150-450); WHITE BLOOD COUNT 12.8 TH/MM3 (4.0-11.0)
[2016-09-15 23:11] LABS: CREATINE KINASE 48 U/L (26-192)
[2016-09-15] MEDS ORDERED: CEPH-460 PO (23:37)
--- NOTE | 2016-09-16 11:59 | EKG ---
Date Performed: 09/15/2016 Time Performed: 21:43:01 PTAGE: 66 years EKG: SINUS TACHYCARDIA ABNORMAL RHYTHM ECG PREVIOUS TRACING : 09/02/2016 23.09 Compared to previous tracing, heart rate has increased. DOCTOR: Efren Orellana Interpretating Date/Time 09/16/2016 11:58:00
[2016-11-02] MEDS ORDERED: METH1TAB2 PO (23:02)
[2016-11-02] MEDS ORDERED: ASPI81TA81 (23:02)
[2016-11-02] MEDS ORDERED: BETH25TA2 PO (23:02)
[2016-11-02] MEDS ORDERED: OMEP40CA2 PO (23:02)
[2016-11-02] MEDS ORDERED: CREON24 PO (23:02)
[2016-11-02] MEDS ORDERED: OXYC40TA20 PO (23:02)
[2016-11-02] MEDS ORDERED: SUMA85TA PO (23:02)
[2016-11-02] MEDS ORDERED: ADVA250A INH (23:02)
[2016-11-02] MEDS ORDERED: TRAZ50TA12 PO (23:02)
[2016-11-02] MEDS ORDERED: OXYC15TA PO (23:02)
[2016-11-02] MEDS ORDERED: TEMA30CA PO (23:02)
[2016-11-02] MEDS ORDERED: PEPP90CA PO (23:02)
[2016-11-02] MEDS ORDERED: ZOFR8TAB PO (23:02)
[2016-11-02] MEDS ORDERED: HYDR500C PO (23:02)
[2016-11-02] MEDS ORDERED: ESTR1 PO (23:02)
[2016-11-02] MEDS ORDERED: QUET1TAB7 PO (23:02)
[2016-11-02] MEDS ORDERED: SOMA350T PO (23:02)
[2016-11-02] MEDS ORDERED: METO50TA PO (23:02)
== END 2016-09-15 23:58 | disposition home or self-care (01) ==
LOC: NEPC 21:29
DX: T83.511A Infection and inflammatory reaction due to indwelling urethral catheter, initial encounter (principal); B96.20 Unspecified Escherichia coli [E. coli] as the cause of diseases classified elsewhere; R06.02 Shortness of breath; R07.9 Chest pain, unspecified; C94.6 Myelodysplastic disease, not elsewhere classified; R00.0 Tachycardia, unspecified; R41.82 Altered mental status, unspecified; I48.91 Unspecified atrial fibrillation; I10 Essential (primary) hypertension
CPT/HCPCS: 71010; 80053; 81001; 82550; 83735; 84484; 85025; 85610; 85730; 87077; 87086; 87186; 93005; 96365; 99285; J0696

== ENCOUNTER 2016-10-06 12:10 | Inpatient (IN) | payer MEDICARE, OTHER ==
[2016-10-06] VITALS (8 sets, daily range): BP systolic 147–187; BP diastolic 72–113; PULSE 81–105; RESP 16–18; TEMP 97.3–98.4; O2SAT 95–99
[~2016-10-06] VITALS: Ht 152.4 cm; Wt 58.2 kg
[~2016-10-06 12:10] MED LIST changes: +CEPH-460 PO
[2016-10-06] MEDS ORDERED: LORazepam 2 MG/ML VIAL IV PUSH ONE (12:45)
[2016-10-06] MEDS ORDERED: SODIUM CHLOR 0.9% 1000 ML INJ 1,000 ML IV ONE (12:45)
--- NOTE | 2016-10-06 12:46 | PD ---
HPI Chief Complaint: GI Complaint Time Seen by Provider: 12:29 Travel History International Travel<30 days: No Contact w/Intl Traveler<30days: No Traveled to known affect area: No History of Present Illness HPI This is a 66-year-old female who has a history of encephalopathy of undetermined etiology as well as multiple medical problems who presents to the emergency department sent in by her home health care nurse because her systolic blood pressure was over 200. Her family member reports that throughout the weekend she's been nauseous and she's been throwing up and not able to keep any ensure down. The patient has a history of gastroparesis and usually is well controlled on Zofran but over the past weekend she's been having difficulty keeping things down. The patient doesn't provide much history. Her family member also reports that the patient was taking Xanax until 4 days ago when they ran out of the prescription. She did take her Coreg and her lisinopril today. PFSH Past Medical History Hx Anticoagulant Therapy: Yes (asa 81mg) Anemia: Yes (MYLOPROLIFERATIVE BLOOD DISORDER) Arthritis: Yes (Shoulders) Asthma: Yes Atrial Fibrillation: Yes Autoimmune Disease: No Blood Disorders: No Anxiety: No Depression: No Heart Rhythm Problems: Yes (tachy) Cancer: No Cardiovascular Problems: Yes (HTN, CHOL) High Cholesterol: Yes Chemotherapy: No Chest Pain: No Congestive Heart Failure: No COPD: Yes (EMPHYSEMA) Cerebrovascular Accident: Yes Diabetes: No Diminished Hearing: No Endocrine: No Gastrointestinal Disorders: Yes GERD: Yes Glaucoma: No Genitourinary: No Headaches: No Hepatitis: Yes (HEP-B) Hiatal Hernia: Yes Heparin Induced Thrombocytopen: No Hypertension: Yes Immune Disorder: No Implanted Vascular Access Dvce: No Kidney Stones: No Musculoskeletal: No Neurologic: No Psychiatric: No Reproductive: No Respiratory: Yes (copd, oxygen at home prn) Migraines: Yes Myocardial Infarction: No Radiation Therapy: No Renal Failure: No Seizures: No Sickle Cell Disease: No Sleep Apnea: No Thyroid Disease: No Ulcer: No ?: Not Menopausal: Yes Tubal Ligation: Yes Past Surgical History Abdominal Surgery: Yes (NAPOLEON,HERNIA REPAIR X 3) AICD: No Arteriovenous Shunt: No Cardiac Surgery: No Cholecystectomy: Yes Ear Surgery: No Endocrine Surgery: No Eye Surgery: No Genitourinary Surgery: Yes (BLADDER SUSPENSION) Gynecologic Surgery: Yes (LT BREAST LUMPECTOMY) Hysterectomy: Yes Insulin Pump: No Joint Replacement: No Neurologic Surgery: No Oral Surgery: No Pacemaker: No Thoracic Surgery: No Other Surgery: Yes Social History Alcohol Use: Yes Tobacco Use: Yes (3-4 DAILY) Substance Use: No Allergies-Medications (Allergen,Severity, Reaction): Coded Allergies: Bactrim (Verified Allergy, Severe, "VOMITING", 10/06/16) Inderal (Verified Allergy, Severe, "CAUSES ASTHMA ATTACK", 10/06/16) Indocin (Verified Allergy, Severe, "NAUSEA", 10/06/16) Penicillin (Verified Allergy, Severe, "HEART FAILURE", 10/06/16) Procardia (Verified Allergy, Severe, "RAPID HEART BEAT", 10/06/16) states does not have a allergy to this medication carlos Grullon 08/15/16 Lanoxin (Verified Adverse Reaction, Unknown, Arrhythmias, 10/06/16) Reported Meds & Prescriptions Reported Meds & Active Scripts Active Cholestyramine 4 Gm/Dose Powd 4 Gm PO BID 1 level scoopful of powder contains 4 grams of cholestyramine. Potassium Chloride Microencaps 20 Meq Tab 40 Meq PO DAILY Enalapril (Enalapril Maleate) 10 Mg Tab 20 Mg PO BID 30 Days Zofran (Ondansetron HCl) 8 Mg Tab 8 Mg PO TID PRN Reported Treximet (Sumatriptan-Naproxen) 85-500 Mg Tab 1 Tab PO Q12HR PRN May take a second dose after 2 hours if needed. Maximum 2 tabs in 24 hour period. [Ibguard] 2 Tab PO TID Oxycodone (Oxycodone HCl) 15 Mg Tab 15 Mg PO BID PRN Oxycodone ER (Oxycodone HCl) 40 Mg Tab 40 Mg PO TID Soma (Carisoprodol) 350 Mg Tab 350 Mg PO HS PRN [oxygen 3 LPM by NC] 3 Liter YASH.CANULA DIRECTED Methenamine Hippurate 1 Gm Tab 0.5 Gm PO BID Estrace Vaginal (Estradiol) 0.01% Cream 1 Appl VAGINAL BID Probiotic (Lactobacillus Acidophilus) 1 Cap Cap 2 Cap PO TIDAC Bethanechol 25 Mg Tab 25 Mg PO 1/2 HOUR BEFORE MEAL Carvedilol 12.5 Mg Tab 6.25 Mg PO TID Creon (Pancrelipase) 3,000-9,500-15,000 Units Cap 1 Cap PO DAILY Temazepam 30 Mg Cap 30 Mg PO HS PRN Trazodone (Trazodone HCl) 50 Mg Tab 50 Mg PO HS Omeprazole 40 Mg Cap 40 Mg PO DAILY Ventolin Hfa 18 GM Inh (Albuterol Sulfate) 90 Mcg/Act Aer 1 Puff INH Q4H PRN Advair Diskus Inh (Fluticasone-Salmeterol Inh) 100-50 Mcg/Blist Aer 1 Puff INH BID Rinse mouth after use. Aspirin 81 Mg Tabdr 81 Mg PO DAILY Hydroxyurea 500 Mg Cap 500 Mg PO DAILY Review of Systems ROS Limitations: Poor Historian Physical Exam Narrative GENERAL:Well appearing, no acute distress SKIN: Dry with skin tenting. HEAD: Atraumatic. Normocephalic. EYES: Pupils equal and round. No injection or drainage. ENT: Moist mucous membranes NECK: Trachea midline. CARDIOVASCULAR: Regular rate and rhythm. No murmur appreciated. RESPIRATORY: Clear to auscultation. Breath sounds equal bilaterally. GASTROINTESTINAL: Abdomen soft, non-tender, nondistended. MUSCULOSKELETAL: No obvious deformities. NEUROLOGICAL: Awake and alert. No obvious cranial nerve deficits. No dysarthria or aphasia. Confused and slow to answer questions. PSYCHIATRIC: Poor insight and judgment. Data Data Last Documented VS Vital Signs Date Time Temp Pulse Resp B/P Pulse Ox O2 Delivery O2 Flow Rate FiO2 10/06/16 14:51 87 16 147/72 99 Nasal Cannula 2 10/06/16 12:21 97.9 Orders Complete Blood Count With Diff (10/06/16 12:36) Comprehensive Metabolic Panel (10/06/16 12:36) Lipase (10/06/16 12:36) Iv Access Insert/Monitor (10/06/16 12:36) Ecg Monitoring (10/06/16 12:36) Oximetry (10/06/16 12:36) Sodium Chloride 0.9% Flush (Ns Flush) (10/06/16 12:45) Sodium Chlor 0.9% 1000 Ml Inj (Ns 1000 M (10/06/16 12:45) Lorazepam Inj (Ativan Inj) (10/06/16 12:45) Urinalysis - C+S If Indicated (10/06/16 14:36) Cath For Specimen (10/06/16 14:36) Potassium Chlor 20 Meq Premix (Kcl 20 Me (10/06/16 14:45) Magnesium (Mg) (10/06/16 13:54) Admit Order (Ed Use Only) (10/06/16 15:10) Urine Culture (10/06/16 14:35) Labs Laboratory Tests Test 10/06/16 10/06/16 13:54 14:35 White Blood Count 13.7 TH/MM3 Red Blood Count 4.00 MIL/MM3 Hemoglobin 14.2 GM/DL Hematocrit 41.3 % Mean Corpuscular Volume 103.1 FL Mean Corpuscular Hemoglobin 35.4 PG Mean Corpuscular Hemoglobin 34.3 % Concent Red Cell Distribution Width 12.9 % Platelet Count 198 TH/MM3 Mean Platelet Volume 8.0 FL Neutrophils (%) (Auto) 71.7 % Lymphocytes (%) (Auto) 19.8 % Monocytes (%) (Auto) 6.2 % Eosinophils (%) (Auto) 0.9 % Basophils (%) (Auto) 1.4 % Neutrophils # (Auto) 9.8 TH/MM3 Lymphocytes # (Auto) 2.7 TH/MM3 Monocytes # (Auto) 0.9 TH/MM3 Eosinophils # (Auto) 0.1 TH/MM3 Basophils # (Auto) 0.2 TH/MM3 CBC Comment DIFF FINAL Differential Comment Sodium Level 124 MEQ/L Potassium Level 2.8 MEQ/L Chloride Level 85 MEQ/L Carbon Dioxide Level 30.9 MEQ/L Anion Gap 8 MEQ/L Blood Urea Nitrogen 5 MG/DL Creatinine 0.78 MG/DL Estimat Glomerular Filtration 74 ML/MIN Rate Random Glucose 89 MG/DL Calcium Level 8.3 MG/DL Magnesium Level 1.3 MG/DL Total Bilirubin 0.5 MG/DL Aspartate Amino Transf 16 U/L (AST/SGOT) Alanine Aminotransferase 15 U/L (ALT/SGPT) Alkaline Phosphatase 55 U/L Total Protein 7.5 GM/DL Albumin 3.3 GM/DL Lipase 107 U/L Urine Color STRAW Urine Turbidity CLEAR Urine pH 5.5 Urine Specific [place] 1.004 Urine Protein TRACE mg/dL Urine Glucose (UA) NEG mg/dL Urine Ketones NEG mg/dL Urine Occult Blood NEG Urine Nitrite NEG Urine Bilirubin NEG Urine Leukocyte Esterase TRACE Urine WBC 3-5 /hpf Urine WBC Clumps OCC Urine Squamous Epithelial 6-8 /hpf Cells Urine Transitional Epithelial 0-2 /hpf Cells Urine Bacteria RARE /hpf Microscopic Urinalysis Comment CULTURE INDICATED MDM Medical Decision Making Medical Screen Exam Complete: Yes Emergency Medical Condition: Yes Interpretation(s) Afebrile, mild tachycardia, hypertensive Leukocytosis similar to prior Hyponatremia Hypokalemia Urinalysis: No infection Differential Diagnosis Dehydration, electrolyte abnormality, benzodiazepine withdrawal, urinary tract infection Narrative Course This is a 66-year-old female who presents to the emergency department with increasing vomiting, nausea, decreased oral intake and malaise as well as refractory high blood pressure. When she arrived she was hypertensive and mildly tachycardic and I elicited the history that she recently discontinued benzodiazepines. I suspect her vital signs may be in the setting of benzodiazepine withdrawal. She was given IV Ativan and her blood pressure improved significantly. Labs were obtained which demonstrated hyponatremia and hypokalemia. I spoke to Dr. Cifuentes who knows this patient very well. He agreed that likely her decompensation is in the setting of polysubstance use. He agrees with admitting the patient for electrolyte replacement and IV hydration. Physician Communication Physician Communication Discussed with Dr. Cifuentes Diagnosis Primary Impression: Hyponatremia Admitting Information Admitting Physician Requests: Admit Apryl Hutchinson MD October 06, 2016 12:46
[2016-10-06] MEDS ORDERED: SOMA350T PO (13:02)
[2016-10-06] MEDS ORDERED: METH1TAB2 PO (13:02)
[2016-10-06] MEDS ORDERED: OXYC-406 PO (13:02)
[2016-10-06] MEDS ORDERED: [UNRECOGNIZED DRUG - OTHER] PO (13:02)
[2016-10-06] MEDS ORDERED: OXYGEN NAS.CANULA (13:02)
[2016-10-06] MEDS ORDERED: SUMA85TA PO (13:02)
[2016-10-06] MEDS ORDERED: OXYC15TA PO (13:02)
[2016-10-06] MEDS: SODIUM CHLORIDE 0.9% FLUSH 10 ML FLUSH IV FLUSH PRN ×2 (13:27→15:29)
[2016-10-06 14:06] LABS: AUTOMATED NEUTROPHIL # 9.8 TH/MM3 (1.8-7.7); BASOPHIL # 0.2 TH/MM3 (0-0.2); BASOPHIL % 1.4 % (0.0-2.0); EOSINOPHIL # 0.1 TH/MM3 (0-0.4); EOSINOPHIL % 0.9 % (0.0-4.0); HEMATOCRIT 41.3 % (35.0-46.0); HEMO FLAGS DIFF FINAL; LYMPH % 19.8 % (9.0-44.0); LYMPHOCYTE # 2.7 TH/MM3 (1.0-4.8); MEAN CELL VOLUME 103.1 FL (80.0-100.0); MEAN CORPUSCULAR HEMOGLOBIN 35.4 PG (27.0-34.0); MEAN CORPUSCULAR HGB CONC 34.3 % (32.0-36.0); MONO % 6.2 % (0.0-8.0); NEUT % 71.7 % (16.0-70.0); PLATELET COUNT 198 TH/MM3 (150-450); RED CELL DISTRIBUTION WIDTH 12.9 % (11.6-17.2); WHITE BLOOD COUNT 13.7 TH/MM3 (4.0-11.0)
[2016-10-06 14:35] LABS: ALKALINE PHOSPHATASE 55 U/L (45-117); ALT (GPT) 15 U/L (10-53); ANION GAP 8 MEQ/L (5-15); AST (GOT) 16 U/L (15-37); BICARBONATE 30.9 MEQ/L (21.0-32.0); BLOOD UREA NITROGEN 5 MG/DL (7-18); CHLORIDE 85 MEQ/L (98-107); GLOMERULAR FILTRATION RATE 74 ML/MIN (>89); TOTAL BILIRUBIN ADULT 0.5 MG/DL (0.2-1.0)
[2016-10-06 14:37] LABS: SODIUM (NA) 124 MEQ/L (136-145)
[2016-10-06 14:38] LABS: POTASSIUM 2.8 MEQ/L (3.5-5.1)
[2016-10-06 14:54] LABS: MAGNESIUM 1.3 MG/DL (1.5-2.5)
[2016-10-06 14:55] LABS: BLOOD, URINE NEG (NEG); GLUCOSE,URINE NEG (NEG); KETONE, URINE NEG (NEG); NITRITE,URINE NEG (NEG); PH, URINE 5.5 (5.0-8.5)
[2016-10-06 15:10] LABS: TRANSITIONAL EPI CELLS, URINE 0-2 /hpf; URINE COLOR STRAW (YELLW/STRAW)
[2016-10-06 15:11] LABS: BACTERIA, URINE RARE /hpf; COMMENT (UR) CULTURE INDICATED; CULTURE IF INDICATED CULTURE INDICATED
[2016-10-06] MEDS: POTASSIUM CHLOR 20 MEQ PREMIX 100 ML IV SCH ×2 (15:29→16:45)
[2016-10-06] MEDS ORDERED: FLUMAZENIL 0.5 MG/5 ML VIAL IV PUSH PRN (15:45)
[2016-10-06] MEDS ORDERED: TEMAZEPAM 15 MG CAP PO PRN (15:45)
[2016-10-06] MEDS ORDERED: ALBUTEROL SULFATE 90 MCG/ACT HFA 8 GM INHALER INH PRN (15:45)
[2016-10-06] MEDS ORDERED: LORazepam 2 MG TAB PO PRN (15:45)
[2016-10-06] MEDS ORDERED: SODIUM CHLORIDE 0.9% FLUSH 10 ML FLUSH IV FLUSH PRN (15:45)
[2016-10-06] MEDS ORDERED: LORazepam 1 MG TAB PO PRN (15:45)
[2016-10-06] MEDS ORDERED: LORazepam 2 MG/ML VIAL IV PUSH PRN (15:45)
[2016-10-06] MEDS ORDERED: CARISOPRODOL 350 MG TAB PO PRN (15:45)
[2016-10-06] MEDS ORDERED: oxyCODONE HCL 40 MG CONTROLLED RELEASE TAB PO SCH (18:00)
[2016-10-06] MEDS ORDERED: TREXIMET PO PRN (18:00)
[2016-10-06] MEDS ORDERED: [UNRECOGNIZED DRUG - OTHER] PO SCH (18:00)
[2016-10-06] MEDS: CARVEDILOL 6.25 MG TAB PO SCH (18:04)
[2016-10-06] MEDS: BETHANECHOL CHL 25 MG TAB PO SCH (18:04)
[2016-10-06] MEDS: LACTOBACILLUS ACIDOPHILUS TAB PO SCH (18:04)
[2016-10-06] MEDS: ONDANSETRON HCL 4 MG/2 ML VIAL IVP PRN (18:59)
[2016-10-06] MEDS ORDERED: METHENAMINE HIPPURATE PO SCH (21:00)
[2016-10-06] MEDS: ESTRADIOL 0.1 MG/GM VAG CREAM 42.5 GM VAGINAL SCH (21:00)
[2016-10-06] MEDS: BUDESONIDE-FORMOTEROL 80/4.5 MCG INHALER INH SCH (21:39)
[2016-10-06] MEDS: SODIUM CHLORIDE 0.9% FLUSH 10 ML FLUSH IV FLUSH SCH (21:40)
[2016-10-06] MEDS: ENALAPRIL MALEATE 10 MG TAB PO SCH (21:40)
[2016-10-06] MEDS: traZODone HCL 50 MG TAB PO SCH (21:40)
[2016-10-06] MEDS: ONDANSETRON ODT 4 MG TAB PO PRN (21:41)
[2016-10-06] MEDS: CHOLESTYRAMINE 4 GM PACKET PO SCH (21:41)
[2016-10-06] MEDS: oxyCODONE HCL 20 MG CONTROLLED RELEASE TAB PO SCH (21:43)
[2016-10-07] VITALS: BP 156/92; PULSE 107; RESP 18; TEMP 97.6; O2SAT 98
[2016-10-07] MEDS: ONDANSETRON HCL 4 MG/2 ML VIAL IVP PRN ×3 (00:58→21:07)
[2016-10-07] MEDS: ONDANSETRON ODT 4 MG TAB PO PRN ×2 (02:36→11:40)
[2016-10-07] MEDS: oxyCODONE HCL 20 MG CONTROLLED RELEASE TAB PO SCH ×3 (06:16→21:06)
[2016-10-07 07:28] LABS: AUTOMATED NEUTROPHIL # 5.9 TH/MM3 (1.8-7.7); BASOPHIL # 0.1 TH/MM3 (0-0.2); BASOPHIL % 0.7 % (0.0-2.0); EOSINOPHIL # 0.1 TH/MM3 (0-0.4); EOSINOPHIL % 0.7 % (0.0-4.0); HEMO FLAGS DIFF FINAL; LYMPH % 26.5 % (9.0-44.0); LYMPHOCYTE # 2.6 TH/MM3 (1.0-4.8); MEAN CELL VOLUME 104.3 FL (80.0-100.0); MEAN CORPUSCULAR HEMOGLOBIN 34.4 PG (27.0-34.0); MONO % 11.5 % (0.0-8.0); NEUT % 60.6 % (16.0-70.0); PLATELET COUNT 205 TH/MM3 (150-450); RED BLOOD COUNT 3.74 MIL/MM3 (4.00-5.30); RED CELL DISTRIBUTION WIDTH 13.7 % (11.6-17.2); WHITE BLOOD COUNT 9.8 TH/MM3 (4.0-11.0)
[2016-10-07 07:43] LABS: ANION GAP 11 MEQ/L (5-15); BICARBONATE 28.7 MEQ/L (21.0-32.0); BLOOD UREA NITROGEN 8 MG/DL (7-18); CHLORIDE 97 MEQ/L (98-107); SODIUM (NA) 137 MEQ/L (136-145)
[2016-10-07 07:46] LABS: POTASSIUM 2.9 MEQ/L (3.5-5.1)
[2016-10-07 08:00] VITALS: BP 173/89; PULSE 95; RESP 18; TEMP 96.7; O2SAT 95
[2016-10-07 08:12] LABS: ALKALINE PHOSPHATASE 52 U/L (45-117); ALT (GPT) 13 U/L (10-53); AST (GOT) 17 U/L (15-37); GLOMERULAR FILTRATION RATE 76 ML/MIN (>89); TOTAL BILIRUBIN ADULT 0.5 MG/DL (0.2-1.0)
[2016-10-07] MEDS: POTASSIUM CHLOR 20 MEQ PREMIX 100 ML IV SCH ×3 (08:15→10:15)
--- NOTE | 2016-10-07 08:34 | HHI.HP ---
History of Present Illness Service Family Primary Care Physician Mj Cifuentes, DO Admission Diagnosis hyponatremia Diagnoses: (1) Hyponatremia (2) Debility (3) Hypokalemia (4) Altered mental status (5) Chronic pain syndrome (6) Abdominal pain History of Present Illness This is a 66-year-old female who has a history of encephalopathy of undetermined etiology as well as multiple medical problems who presents to the emergency department sent in by her home health care nurse because her systolic blood pressure was over 200. Her family member reports that throughout the weekend she's been nauseous and she's been throwing up and not able to keep any ensure down. The patient has a history of gastroparesis and usually is well controlled on Zofran but over the past weekend she's been having difficulty keeping things down. The patient doesn't provide much history. Her family member also reports that the patient was taking Xanax until 4 days ago when they ran out of the prescription. She did take her Coreg and her lisinopril today. Review of Systems Constitutional: COMPLAINS OF: Fatigue, Change in appetite, DENIES: Fever Ears, nose, mouth, throat: DENIES: Oral lesions, Throat pain, Sinus Pain Respiratory: DENIES: Cough, Sputum production, Shortness of breath Cardiovascular: DENIES: Chest pain, Syncope, Lower Extremity Edema Gastrointestinal: COMPLAINS OF: Nausea, DENIES: Abdominal pain Genitourinary: COMPLAINS OF: Urinary incontinence Musculoskeletal: DENIES: Joint pain, Stiffness, Joint Swelling Neurologic: DENIES: Headache Past Family Social History Allergies: Coded Allergies: Bactrim (Verified Allergy, Severe, "VOMITING", 10/06/16) Inderal (Verified Allergy, Severe, "CAUSES ASTHMA ATTACK", 10/06/16) Indocin (Verified Allergy, Severe, "NAUSEA", 10/06/16) Penicillin (Verified Allergy, Severe, "HEART FAILURE", 10/06/16) Procardia (Verified Allergy, Severe, "RAPID HEART BEAT", 10/06/16) states does not have a allergy to this medication carlos Grullon 08/15/16 Lanoxin (Verified Adverse Reaction, Unknown, Arrhythmias, 10/06/16) Past Medical History MYLOPROLIFERATIVE BLOOD DISORDER Arthritis Asthma High Cholesterol EMPHYSEMA Gastrointestinal Disorders HEP-B Hypertension Past Surgical History Abdominal Surgery: Yes (NAPOLEON,HERNIA REPAIR X 3) Cholecystectomy: Yes Genitourinary Surgery: Yes (BLADDER SUSPENSION) Gynecologic Surgery: Yes (LT BREAST LUMPECTOMY) Hysterectomy: Yes Reported Medications Current Medications Medications (Trade) Dose Ordered Sig/Diane Route Start Time Stop Time Status Last Admin (Romazicon Inj) 0.2 mg Q1M PRN IV PUSH 10/06/16 15:45 (Ativan) 1 mg Q4H PRN PO 10/06/16 15:45 (Ativan) 2 mg Q2H PRN PO 10/06/16 15:45 (Ativan Inj) 2 mg Q1H PRN IV PUSH 10/06/16 15:45 (NS Flush) 2 ml UNSCH PRN IV FLUSH 10/06/16 15:45 (NS Flush) 2 ml BID IV FLUSH 10/06/16 21:00 10/06/16 21:40 (Zofran Inj) 4 mg Q6H PRN IVP 10/06/16 15:45 10/07/16 00:58 (Proair Hfa Inh) 1 puff Q4H PRN INH 10/06/16 15:45 (Ecotrin Ec) 81 mg DAILY PO 10/07/16 09:00 (Urecholine) 25 mg TIDPC PO 10/06/16 18:30 10/06/16 18:04 (Coreg) 6.25 mg TID PO 10/06/16 18:00 10/06/16 18:04 (Questran 4 Gm Pkt) 4 gm BID@11,23 PO 10/06/16 23:00 10/06/16 21:41 (Vasotec) 20 mg BID PO 10/06/16 21:00 10/06/16 21:40 (Estrace 0.01% Vag Cream) 1 appl BID VAGINAL 10/06/16 21:00 (Hydrea) 500 mg DAILY PO 10/07/16 09:00 (Lactinex) 1 tab TIDAC PO 10/06/16 17:00 10/06/16 18:04 (KCl) 40 meq DAILY PO 10/07/16 09:00 (Restoril) 30 mg HS PRN PO 10/06/16 15:45 (Desyrel) 50 mg HS PO 10/06/16 21:00 10/06/16 21:40 (Symbicort 80-4.5 Mcg Inh) 2 puff BID INH 10/06/16 21:00 10/06/16 21:39 Patient Own Medication PT OWN MED:METHENAMINE HIPPURATE 0.5GM BID PO 10/06/16 21:00 Hold (Protonix) 40 mg DAILY PO 10/07/16 09:00 (Zofran Odt) 8 mg TID PRN PO 10/06/16 16:30 10/07/16 02:36 (Roxicodone) 5 mg BID PRN PO 10/06/16 17:00 Patient Own Medication PT OWN MED: CREON 300... DAILY PO 10/07/16 09:00 Future Hold Patient Own Medication PT OWN MED:TREXIMET Q12H PRN PO 10/06/16 18:00 Hold (OxyCONTIN CR) 20 mg Q8HR PO 10/06/16 22:00 10/07/16 06:16 Active Ordered Medications Current Medications Medications (Trade) Dose Ordered Sig/Diane Route Start Time Stop Time Status Last Admin (Romazicon Inj) 0.2 mg Q1M PRN IV PUSH 10/06/16 15:45 (Ativan) 1 mg Q4H PRN PO 10/06/16 15:45 (Ativan) 2 mg Q2H PRN PO 10/06/16 15:45 (Ativan Inj) 2 mg Q1H PRN IV PUSH 10/06/16 15:45 (NS Flush) 2 ml UNSCH PRN IV FLUSH 10/06/16 15:45 (NS Flush) 2 ml BID IV FLUSH 10/06/16 21:00 10/06/16 21:40 (Zofran Inj) 4 mg Q6H PRN IVP 10/06/16 15:45 10/07/16 00:58 (Proair Hfa Inh) 1 puff Q4H PRN INH 10/06/16 15:45 (Ecotrin Ec) 81 mg DAILY PO 10/07/16 09:00 (Urecholine) 25 mg TIDPC PO 10/06/16 18:30 10/06/16 18:04 (Coreg) 6.25 mg TID PO 10/06/16 18:00 10/06/16 18:04 (Questran 4 Gm Pkt) 4 gm BID@ PO 10/06/16 23:00 10/06/16 21:41 (Vasotec) 20 mg BID PO 10/06/16 21:00 10/06/16 21:40 (Estrace 0.01% Vag Cream) 1 appl BID VAGINAL 10/06/16 21:00 (Hydrea) 500 mg DAILY PO 10/07/16 09:00 (Lactinex) 1 tab TIDAC PO 10/06/16 17:00 10/06/16 18:04 (KCl) 40 meq DAILY PO 10/07/16 09:00 (Restoril) 30 mg HS PRN PO 10/06/16 15:45 (Desyrel) 50 mg HS PO 10/06/16 21:00 10/06/16 21:40 (Symbicort 80-4.5 Mcg Inh) 2 puff BID INH 10/06/16 21:00 10/06/16 21:39 Patient Own Medication PT OWN MED:METHENAMINE HIPPURATE 0.5GM BID PO 10/06/16 21:00 Hold (Protonix) 40 mg DAILY PO 10/07/16 09:00 (Zofran Odt) 8 mg TID PRN PO 10/06/16 16:30 10/07/16 02:36 (Roxicodone) 5 mg BID PRN PO 10/06/16 17:00 Patient Own Medication PT OWN MED: CREON 300... DAILY PO 10/07/16 09:00 Future Hold Patient Own Medication PT OWN MED:TREXIMET Q12H PRN PO 10/06/16 18:00 Hold (OxyCONTIN CR) 20 mg Q8HR PO 10/06/16 22:00 10/07/16 06:16 Family History Mother CVA Father unknown Social History Smokes 1 pk per day Denies ETOH use Lives with Physical Exam Vital Signs Vital Signs Date Time Temp Pulse Resp B/P Pulse Ox O2 Delivery O2 Flow Rate FiO2 10/07/16 00:00 97.6 107 18 156/92 98 10/06/16 20:00 98.4 97 18 156/85 96 10/06/16 17:00 97.3 105 18 182/97 95 10/06/16 16:55 75 16 155/88 97 Nasal Cannula 2 10/06/16 16:00 16 10/06/16 14:51 87 16 147/72 99 Nasal Cannula 2 10/06/16 14:30 81 16 187/98 95 Room Air 10/06/16 14:30 16 10/06/16 13:32 86 16 181/76 97 Room Air 10/06/16 13:00 16 97 Room Air 10/06/16 12:42 16 10/06/16 12:21 97.9 98 16 179/113 99 Physical Exam GENERAL: Alert and cooperative in no apparent distress. SKIN: No rashes, ecchymoses or lesions. Cool and dry. HEAD: Atraumatic. Normocephalic. No temporal or scalp tenderness. CARDIOVASCULAR: Regular rate and rhythm without murmurs, gallops, or rubs. RESPIRATORY: Clear to auscultation. Breath sounds equal bilaterally. No wheezes , rales, or rhonchi. GASTROINTESTINAL: Abdomen soft, non-tender, nondistended. No guarding. MUSCULOSKELETAL: Extremities without clubbing, cyanosis, or edema. No calf tenderness. Negative Homans sign bilaterally. NEUROLOGICAL: Awake and alert. Normal speech. Laboratory Laboratory Tests Test 10/06/16 10/06/16 10/07/16 13:54 14:35 06:00 White Blood Count 13.7 9.8 Red Blood Count 4.00 3.74 Hemoglobin 14.2 12.9 Hematocrit 41.3 39.0 Mean Corpuscular Volume 103.1 104.3 Mean Corpuscular Hemoglobin 35.4 34.4 Mean Corpuscular Hemoglobin 34.3 33.0 Concent Red Cell Distribution Width 12.9 13.7 Platelet Count 198 205 Mean Platelet Volume 8.0 8.9 Neutrophils (%) (Auto) 71.7 60.6 Lymphocytes (%) (Auto) 19.8 26.5 Monocytes (%) (Auto) 6.2 11.5 Eosinophils (%) (Auto) 0.9 0.7 Basophils (%) (Auto) 1.4 0.7 Neutrophils # (Auto) 9.8 5.9 Lymphocytes # (Auto) 2.7 2.6 Monocytes # (Auto) 0.9 1.1 Eosinophils # (Auto) 0.1 0.1 Basophils # (Auto) 0.2 0.1 CBC Comment DIFF FINAL DIFF FINAL Differential Comment Sodium Level 124 137 Potassium Level 2.8 2.9 Chloride Level 85 97 Carbon Dioxide Level 30.9 28.7 Anion Gap 8 11 Blood Urea Nitrogen 5 8 Creatinine 0.78 0.76 Estimat Glomerular Filtration 74 76 Rate Random Glucose 89 74 Calcium Level 8.3 9.1 Magnesium Level 1.3 Total Bilirubin 0.5 0.5 Aspartate Amino Transf 16 17 (AST/SGOT) Alanine Aminotransferase 15 13 (ALT/SGPT) Alkaline Phosphatase 55 52 Total Protein 7.5 7.0 Albumin 3.3 3.3 Lipase 107 Urine Color STRAW Urine Turbidity CLEAR Urine pH 5.5 Urine Specific [place] 1.004 Urine Protein TRACE Urine Glucose (UA) NEG Urine Ketones NEG Urine Occult Blood NEG Urine Nitrite NEG Urine Bilirubin NEG Urine Leukocyte Esterase TRACE Urine WBC 3-5 Urine WBC Clumps OCC Urine Squamous Epithelial 6-8 Cells Urine Transitional Epithelial 0-2 Cells Urine Bacteria RARE Microscopic Urinalysis Comment CULTURE INDICATED Date/Time Procedure Status Source Growth 10/06/16 14:35 Urine Culture Received Urine Clean Catch Pending Result Diagram: 10/07/16 0600 10/07/16 0600 Assessment and Plan Problem List: (1) Hypomagnesemia Status: Acute Plan: Magnesium 1.3. 4 gram replacement today with recheck in AM (2) Hypokalemia Status: Acute Plan: Potassium 2.9 this AM scheduled for 40 MEQ PO and also will replace with 40 MEQ IV recheck at 1600 (3) Hyponatremia Status: Acute Plan: sodium 137 this AM. On admission 124. Will monitor (4) Hypertension, benign Status: Acute Plan: Blood pressure 156/92 this AM. Will be receiving 9 AM medications. Will monitor (5) Myeloproliferative disease Status: Acute Plan: continue hydroxyurea. will monitor blood (6) COPD (chronic obstructive pulmonary disease) Status: Acute Plan: No SOB noted. Has Symbicort and albuterol as needed. (7) Altered mental status Status: Acute Plan: Patient with short term memory loss which has been her baseline. (8) Nausea Status: Acute Plan: Patient with complaints of nausea and poor appetite. will consult GI Assessment and Plan Assessment and plan discussed with Dr. Cifuentes Discussed Condition With Nursing Physician Attestation I and the BARBER TOOL SHARPENER have both examined this patient and reviewed this note and I agree with these findings and plan of care. Cailin Harper BARBER TOOL SHARPENER October 07, 2016 08:34
[2016-10-07] MEDS: CARVEDILOL 6.25 MG TAB PO SCH ×3 (08:57→17:44)
[2016-10-07] MEDS: BETHANECHOL CHL 25 MG TAB PO SCH ×3 (08:57→17:44)
[2016-10-07] MEDS: LACTOBACILLUS ACIDOPHILUS TAB PO SCH ×3 (08:57→17:44)
[2016-10-07] MEDS: ESTRADIOL 0.1 MG/GM VAG CREAM 42.5 GM VAGINAL SCH ×2 (08:58→21:00)
[2016-10-07] MEDS: ENALAPRIL MALEATE 10 MG TAB PO SCH ×2 (08:58→21:05)
[2016-10-07] MEDS: SODIUM CHLORIDE 0.9% FLUSH 10 ML FLUSH IV FLUSH SCH ×2 (08:59→21:05)
[2016-10-07] MEDS: BUDESONIDE-FORMOTEROL 80/4.5 MCG INHALER INH SCH ×2 (08:59→21:05)
[2016-10-07] MEDS ORDERED: HYDROXYUREA 500 MG CAP PO SCH (09:00)
[2016-10-07] MEDS ORDERED: PANTOPRAZOLE SOD 40 MG DELAYED RELEASE TAB PO SCH (09:00)
[2016-10-07] MEDS ORDERED: ENOXAPARIN SODIUM 40 MG/0.4 ML SYRINGE SQ SCH (09:00)
[2016-10-07] MEDS ORDERED: ASPIRIN EC 81 MG TABEC PO SCH (09:00)
[2016-10-07] MEDS ORDERED: [UNRECOGNIZED DRUG - OTHER] PO SCH (09:00)
[2016-10-07] MEDS ORDERED: POTASSIUM CHLORIDE 20 MEQ CONTROLLED RELEASE TAB PO SCH (09:00)
[2016-10-07] MEDS: CHOLESTYRAMINE 4 GM PACKET PO SCH ×2 (09:05→22:13)
[2016-10-07] MEDS ORDERED: MAGNESIUM SULFATE INJ 4 GM in DEXTROSE 5% IN WATER 100ML INJ 92 ML IV SCH ×2 (10:00)
--- NOTE | 2016-10-07 10:01 | RADHPO ---
EXAM DATE/TIME: 10/07/2016 09:11 [facility] COMPARISON: CT ABDOMEN & PELVIS W CONTRAST, September 03, 2016, 2:00. INDICATIONS : Nausea. ORAL CONTRAST: No oral contrast ingested. RADIATION DOSE: 7.50 CTDIvol (mGy) MEDICAL HISTORY : Cardiovascular disease. Gastroesophageal reflux disease. Chronic obstructive pulmonary disease.Hypert ension. Gastroparesis. Diverticulitis. Pancreatitis. SURGICAL HISTORY : Cholecystectomy. Tubal ligation.Hysterectomy.Hernia repair. Spinal fusion. ENCOUNTER: Initial ACUITY: 4 - 6 days PAIN SCALE: 0/10 LOCATION: abdomen TECHNIQUE: Volumetric scanning of the abdomen and pelvis was performed. Using automated exposure control and ad justment of the mA and/or kV according to patient size, radiation dose was kept as low as reasonably achievable to obtain optimal diagnostic quality images. FINDINGS: LOWER LUNGS: The visualized lower lungs are clear. LIVER: Homogeneous density without lesion. There is no dilation of the biliary tree. Gallbladder surgically absent.. SPLEEN: Mildly enlarged without focal mass. PANCREAS: Within normal limits. KIDNEYS: Dense parenchymal calcification posterior left kidney lower pole cortex. There is a tiny nonobstructi ng stone in the lower pole collecting system. No suspicious findings. No hydronephrosis. ADRENAL GLANDS: Within normal limits. VASCULAR: Dense atherosclerotic vascular calcification involving abdominal aorta and branch vessels. BOWEL/MESENTERY: Distal colonic diverticula. Dense contrast present throughout much of the colon no abnormal dilatatio n or inflammatory change appreciated. ABDOMINAL WALL: Within normal limits. RETROPERITONEUM: There is no lymphadenopathy. BLADDER: No wall thickening or mass. REPRODUCTIVE: Uterus surgically absent. No evidence of pelvic mass or free fluid. INGUINAL: There is no lymphadenopathy or hernia. MUSCULOSKELETAL: Within normal limits for patient age. CONCLUSION: Improved appearance of the abdomen and pelvis. No acute CT findings on the current exam Mayur Sood MD on October 07, 2016 at 9:51 Board Certified Radiologist. This report was verified electronically.
[2016-10-07] MEDS ORDERED: POTASSIUM CHLORIDE 20 MEQ CONTROLLED RELEASE TAB PO ONE (11:15)
[2016-10-07 12:00] VITALS: BP 152/98; PULSE 86; RESP 18; TEMP 96.3; O2SAT 96
[2016-10-07] MEDS ORDERED: PROMETHAZINE HCL 25 MG SUPP RECTAL ONE (12:15)
[2016-10-07] MEDS ORDERED: SODIUM CHLOR 0.9% 1000 ML INJ 1,000 ML IV SCH (12:40)
[2016-10-07] MEDS ORDERED: METOCLOPRAMIDE HCL 10 MG/2 ML VIAL IV PRN (12:45)
[2016-10-07 16:00] VITALS: BP 168/88; PULSE 90; RESP 18; TEMP 97; O2SAT 96
[2016-10-07] MEDS: ALPRAZolam 1 MG TAB PO PRN ×2 (17:44→22:12)
[2016-10-07 18:41] LABS: CHLORIDE 103 MEQ/L (98-107); POTASSIUM 3.8 MEQ/L (3.5-5.1); SODIUM (NA) 138 MEQ/L (136-145)
[2016-10-07 18:45] LABS: ANION GAP 7 MEQ/L (5-15); BICARBONATE 27.6 MEQ/L (21.0-32.0); BLOOD UREA NITROGEN 7 MG/DL (7-18)
[2016-10-07 18:48] LABS: ALT (GPT) 16 U/L (10-53); AST (GOT) 18 U/L (15-37); GLOMERULAR FILTRATION RATE 76 ML/MIN (>89)
[2016-10-07 18:50] LABS: TOTAL BILIRUBIN ADULT 0.5 MG/DL (0.2-1.0)
[2016-10-07 18:51] LABS: ALKALINE PHOSPHATASE 53 U/L (45-117)
[2016-10-07 20:00] VITALS: BP 155/98; PULSE 85; RESP 21; TEMP 97.2; O2SAT 97
--- NOTE | 2016-10-07 20:03 | MB ---
cc: HEATHER CIFUENTES D.O., DONATO DATE OF CONSULTATION 10/07/2016 REASON FOR CONSULTATION Nausea and vomiting. HISTORY OF PRESENT ILLNESS A 66-year-old female well-known to me. She has a multitude of complex medical issues and GI problems as well. She has had bouts of nausea and vomiting related most likely to her gastroparesis. She has been taking Zofran and also she was started on bethanechol therapy. Her has been faithful I trying to take care of her but matters have gotten quite difficult. She has had numerous admissions to [facility], [facility] and other facilities. Recently she was seen in the office by the undersigned, and she was unable to ambulate out of the office and she had to be EVAC'd to the hospital approximately a week and half ago. The reports her blood pressure has been out of control and elevated and that has been an issue lately as well. The patient has had numerous endoscopic evaluations by the undersigned. She had endoscopic ultrasound for dilated biliary system and she was due for another endoscopic ultrasound but because of her other medical problems that had to be postponed. Her nausea and vomiting have improved over the last several hours and unfortunately she does not eat well either because she does not have a good appetite. I discussed the case with CHAPIN Balbuena with Dr. Cifuentes's staff. We discussed that the patient has been having failing health and deterioration in her overall medical health over the last several months. In addition she has had worsening in mentation and cognitive function as she is most definitely confused and her notes that this has worsened as well. I had several discussions with her about the possibility of having her placed in a long-term facility for further aide and assistance and management of her chronic problems. She also has had multiple falls and she is also a fall risk. The patient's is seeking further care and placement perhaps palliative care as well. PAST MEDICAL HISTORY Her past history is well-documented in the charts. She has a history of: 1. Hypertension. 2. Hypercholesterolemia. 3. Asthma. 4. Chronic obstructive pulmonary disease. 5. Arthritis. 6. Myeloproliferative blood disorder. 7. Gastroparesis. 8. History of pancreatitis. MEDICATIONS Include: 1. Ativan. 2. ProAir. 3. Zofran. 4. Urecholine. 5. Coreg. 6. Vasotec. 7. Lactinex. 8. Restoril. 9. Zesteril. 10. Symbicort. 11. Protonix. 12. OxyContin. PAST SURGICAL HISTORY 1. Cholecystectomy. 2. Bladder suspension. 3. Left breast lumpectomy. ALLERGIES TO BACTRIM, INDERAL, INDOCIN, PENICILLIN, PROCARDIA AND LANOXIN. REVIEW OF SYSTEMS A 12 point review of systems as stated in the history of present illness. The patient has had failing health with deterioration in mentation as well. She has had weight loss. She is not eating well. She has had nausea and vomiting. Currently she has had no abdominal pain. PHYSICAL EXAMINATION GENERAL: Chronically ill-appearing female, appears much older than her stated age in no acute distress. She is confused, disoriented. VITAL SIGNS: Stable. She is afebrile. HEENT: Exam normocephalic. Sclerae anicteric. Oral mucosa dry. Poor dentition is noted. NECK: Supple. CARDIOVASCULAR: Exam S1-S2, regular rhythm. CHEST: Clear. ABDOMEN: Flat, nontender. Bowel sounds are present. There is no distension or organomegaly. EXTREMITIES: Without edema or peripheral cyanosis. IMPRESSION A 66-year-old female with a multitude of chronic medical and GI problems. She has had nausea and vomiting most likely due to her gastroparesis. Currently this appears to be controlled. She has received some IV hydration. PLAN Would continue Zofran and bethanechol for now. I have had once again a thorough discussion with her about further placement in a monitored facility. I reviewed her labs. Her hemoglobin is within normal range. Her potassium has been low 2.9 and this certainly will contribute to her nausea and vomiting. It is now corrected to 4.2 and 3.9. Also her magnesium was low, that also has been corrected. Her liver enzymes are stable. Lipase was not elevated. Creatinine is 0.76. I would try to encourage p.o. intake and avoid placing nasogastric tube, a gastric feeding tube, because of her gastroparesis she would not do well with that. I believe Megace has been tried in the past, we could revisit that medication if necessary. Thank you kindly for this consult. No further endoscopic intervention is needed currently or acutely at this time. I will be glad to follow the patient as an outpatient. Thank you kindly. MD AKANKSHA Varma/LIZZ /7:04 PM /7:36 PM
[2016-10-07] MEDS: traZODone HCL 50 MG TAB PO SCH (21:05)
[2016-10-08] MEDS ORDERED: MAGNESIUM OXIDE 400 MG TAB PO SCH (11:00)
[2016-11-02] MEDS ORDERED: PEPP90CA PO (23:02)
[2016-11-02] MEDS ORDERED: OMEP40CA2 PO (23:02)
[2016-11-02] MEDS ORDERED: ZOFR8TAB PO (23:02)
[2016-11-02] MEDS ORDERED: SOMA350T PO (23:02)
[2016-11-02] MEDS ORDERED: ASPI81TA81 (23:02)
[2016-11-02] MEDS ORDERED: OXYC15TA PO (23:02)
[2016-11-02] MEDS ORDERED: BETH25TA2 PO (23:02)
[2016-11-02] MEDS ORDERED: METO50TA PO (23:02)
[2016-11-02] MEDS ORDERED: TRAZ50TA12 PO (23:02)
[2016-11-02] MEDS ORDERED: ADVA250A INH (23:02)
[2016-11-02] MEDS ORDERED: METH1TAB2 PO (23:02)
[2016-11-02] MEDS ORDERED: OXYC40TA20 PO (23:02)
[2016-11-02] MEDS ORDERED: CREON24 PO (23:02)
[2016-11-02] MEDS ORDERED: HYDR500C PO (23:02)
[2016-11-02] MEDS ORDERED: TEMA30CA PO (23:02)
[2016-11-02] MEDS ORDERED: QUET1TAB7 PO (23:02)
[2016-11-02] MEDS ORDERED: SUMA85TA PO (23:02)
[2016-11-02] MEDS ORDERED: ESTR1 PO (23:02)
== END 2016-10-07 22:30 | disposition home health service (06) | DRG 641 ==
LOC: PHED 12:10 → PHEDA 15:11 → PH3B 16:54
PROVIDERS: ADMIT Family Medicine; ATTEND Family Medicine
DX: E87.1 Hypo-osmolality and hyponatremia (principal); C94.6 Myelodysplastic disease, not elsewhere classified; E83.42 Hypomagnesemia; E87.6 Hypokalemia; K31.84 Gastroparesis; J44.9 Chronic obstructive pulmonary disease, unspecified; I10 Essential (primary) hypertension; G89.4 Chronic pain syndrome; R53.81 Other malaise; R41.82 Altered mental status, unspecified; F17.210 Nicotine dependence, cigarettes, uncomplicated; Z91.81 History of falling; J45.909 Unspecified asthma, uncomplicated; M19.90 Unspecified osteoarthritis, unspecified site
CPT/HCPCS: 74176; 76937; 80053; 81001; 83690; 83735; 84132; 85025; 87086; 96361; 96374; J1650; J2060; J2405; J3480; J7030

== ENCOUNTER 2016-10-12 01:37 | Inpatient (IN) | payer MEDICARE, OTHER ==
[2016-10-12] VITALS (32 sets, daily range): BP systolic 48–260; BP diastolic 30–121; PULSE 64–135; RESP 16–26; TEMP 93.6–100.8; O2SAT 92–100
[~2016-10-12] VITALS: Ht 162.6 cm; Wt 58.7 kg
[~2016-10-12 01:37] MED LIST changes: -CEPH-460 PO; -FLUC100T2 PO; -LEVA0.637 INH; -MACR100C2 PO; -METR-1 PO; +OXYC-406 PO; +OXYC15TA PO; +OXYGEN NAS.CANULA; -PHEN0.4T PO; +SOMA350T PO; +SUMA85TA PO; +[UNRECOGNIZED DRUG - OTHER] PO
[2016-10-12] MEDS ORDERED: SUCCINYLCHOLINE CHLORIDE 200 MG/10 ML VIAL IV PUSH ONE (01:45)
[2016-10-12] MEDS ORDERED: SODIUM CHLORIDE 0.9% FLUSH 5 ML FLUSH IV FLUSH PRN (01:45)
[2016-10-12] MEDS ORDERED: PROPOFOL 1000 MG/100 ML INJ 100 ML IV SCH (01:45)
[2016-10-12] MEDS ORDERED: ETOMIDATE 20 MG/10 ML VIAL IV PUSH ONE (01:45)
[2016-10-12] MEDS ORDERED: PROPOFOL 1000 MG/100 ML INJ 100 ML ONE (01:45)
[2016-10-12] MEDS ORDERED: SODIUM CHLOR 0.9% 1000 ML INJ 1,000 ML IV SCH (01:45)
--- NOTE | 2016-10-12 01:45 | PD ---
HPI Chief Complaint: unresponsive Time Seen by Provider: 01:44 Travel History International Travel<30 days: No Contact w/Intl Traveler<30days: No Traveled to known affect area: No History of Present Illness HPI 66-year-old female was brought in by EMS after she was found unresponsive by her . Patient was brought in back by [facility] for respiratory failure, poor respiratory effort and unresponsive. Patient was unable to give any history obviously. Her blood sugar was 165 on route. As per the paramedics the said that she is supposed to be on a lot of pain medication for her chronic neck and back pain. However she took it upon herself and decided to stop taking any of her pain medication since she was tired of taking them a few days ago. Last night she was complaining of pain in her convinced her to take her pain medication and he gave her double the dose. And he found her not too long ago unresponsive and called 911. EMS found her frothing in her mouth with poor respiratory effort. She was given Narcan with not much change. [facility] Past Medical History Narrative Medical List of her past medical, surgical, social and family history reviewed from the nursing note. Hx Anticoagulant Therapy: Yes (asa 81mg) Anemia: Yes (MYLOPROLIFERATIVE BLOOD DISORDER) Arthritis: Yes Asthma: Yes Atrial Fibrillation: Yes Autoimmune Disease: No Blood Disorders: No Anxiety: Yes Depression: No Heart Rhythm Problems: Yes (tachy, hx of heart block, arrhythmia) Cancer: No Cardiovascular Problems: Yes High Cholesterol: Yes Chemotherapy: No Chest Pain: No Congestive Heart Failure: Yes COPD: Yes Cerebrovascular Accident: No Diabetes: No Diminished Hearing: No Diverticulitis: Yes Endocrine: No Gastrointestinal Disorders: Yes (gastroparesis, colitis) GERD: Yes Glaucoma: No Genitourinary: Yes (over active bladder, chronic uti's) Headaches: No Hepatitis: Yes (HEP-B) Hiatal Hernia: Yes Heparin Induced Thrombocytopen: No Hypertension: Yes Immune Disorder: No Implanted Vascular Access Dvce: No Kidney Stones: No Musculoskeletal: No Neurologic: No Psychiatric: No Reproductive: No Respiratory: Yes (copd, oxygen at home prn) Migraines: No Myocardial Infarction: No Pancreatitis: Yes Radiation Therapy: No Renal Failure: No Seizures: No Sickle Cell Disease: No Sleep Apnea: No Thyroid Disease: No Ulcer: No Menopausal: Yes Tubal Ligation: Yes Past Surgical History Abdominal Surgery: Yes (hernia x3 lap choely) AICD: No Arteriovenous Shunt: No Cardiac Surgery: No Cholecystectomy: Yes Ear Surgery: No Endocrine Surgery: No Eye Surgery: No Genitourinary Surgery: Yes (bladder suspension) Gynecologic Surgery: Yes Hysterectomy: Yes Insulin Pump: No Joint Replacement: No Neurologic Surgery: No Oral Surgery: No Pacemaker: No Thoracic Surgery: No Other Surgery: Yes Social History Alcohol Use: Yes Tobacco Use: Yes (1 ppd) Substance Use: No Allergies-Medications (Allergen,Severity, Reaction): Coded Allergies: Bactrim (Verified Allergy, Severe, "VOMITING", 10/06/16) Inderal (Verified Allergy, Severe, "CAUSES ASTHMA ATTACK", 10/06/16) Indocin (Verified Allergy, Severe, "NAUSEA", 10/06/16) Penicillin (Verified Allergy, Severe, "HEART FAILURE", 10/06/16) Procardia (Verified Allergy, Severe, "RAPID HEART BEAT", 10/06/16) states does not have a allergy to this medication carlos Grullon 08/15/16 Lanoxin (Verified Adverse Reaction, Unknown, Arrhythmias, 10/06/16) Comments List of her allergies reviewed from the nursing note. Reported Meds & Prescriptions Reported Meds & Active Scripts Active Cholestyramine 4 Gm/Dose Powd 4 Gm PO BID 1 level scoopful of powder contains 4 grams of cholestyramine. Potassium Chloride Microencaps 20 Meq Tab 40 Meq PO DAILY Enalapril (Enalapril Maleate) 10 Mg Tab 20 Mg PO BID 30 Days Zofran (Ondansetron HCl) 8 Mg Tab 8 Mg PO TID PRN Reported Treximet (Sumatriptan-Naproxen) 85-500 Mg Tab 1 Tab PO Q12HR PRN May take a second dose after 2 hours if needed. Maximum 2 tabs in 24 hour period. [Ibguard] 2 Tab PO TID Oxycodone (Oxycodone HCl) 15 Mg Tab 15 Mg PO BID PRN Oxycodone ER (Oxycodone HCl) 40 Mg Tab 40 Mg PO TID Soma (Carisoprodol) 350 Mg Tab 350 Mg PO HS PRN [oxygen 3 LPM by NC] 3 Liter YASH.CANULA DIRECTED Methenamine Hippurate 1 Gm Tab 0.5 Gm PO BID Estrace Vaginal (Estradiol) 0.01% Cream 1 Appl VAGINAL BID Probiotic (Lactobacillus Acidophilus) 1 Cap Cap 2 Cap PO TIDAC Bethanechol 25 Mg Tab 25 Mg PO 1/2 HOUR BEFORE MEAL Carvedilol 12.5 Mg Tab 6.25 Mg PO TID Creon (Pancrelipase) 3,000-9,500-15,000 Units Cap 1 Cap PO DAILY Temazepam 30 Mg Cap 30 Mg PO HS PRN Trazodone (Trazodone HCl) 50 Mg Tab 50 Mg PO HS Omeprazole 40 Mg Cap 40 Mg PO DAILY Ventolin Hfa 18 GM Inh (Albuterol Sulfate) 90 Mcg/Act Aer 1 Puff INH Q4H PRN Advair Diskus Inh (Fluticasone-Salmeterol Inh) 100-50 Mcg/Blist Aer 1 Puff INH BID Rinse mouth after use. Aspirin 81 Mg Tabdr 81 Mg PO DAILY Hydroxyurea 500 Mg Cap 500 Mg PO DAILY Narrative Medication List of her home medications reviewed from the nursing note. Review of Systems Except as stated in HPI: all other systems reviewed are Neg Physical Exam Narrative GENERAL: Unresponsive elderly, looks older than her age, in extremis SKIN: Cool and diaphoretic HEAD: Atraumatic. Normocephalic. EYES: Pupils, pinpoint, equal and round. No scleral icterus. No injection or drainage. ENT: No nasal bleeding or discharge. Mucous membranes pink and moist. NECK: Trachea midline. No JVD. Patient is being bagged by BVM. Frothing at her mouth CARDIOVASCULAR: Regular rate and rhythm. No murmur appreciated. RESPIRATORY: No accessory muscle use. Clear to auscultation. Breath sounds equal bilaterally. GASTROINTESTINAL: Abdomen soft, non-tender, nondistended. Hepatic and splenic margins not palpable. MUSCULOSKELETAL: No obvious deformities. No clubbing. No cyanosis. No edema. NEUROLOGICAL: GCS of 3 PSYCHIATRIC: Unable to assess Data Data Last Documented VS Orders Propofol 1000 Mg/100 Ml Inj (Diprivan 10 (10/12/16 01:45) Electrocardiogram (10/12/16 01:45) Complete Blood Count With Diff (10/12/16 01:45) Comprehensive Metabolic Panel (10/12/16 01:45) Creatine Kinase (Cpk) (10/12/16 01:45) Prothrombin Time / Inr (Pt) (10/12/16 01:45) Troponin I (10/12/16 01:45) Thyroid Stimulating Hormone (10/12/16 01:45) Urinalysis - C+S If Indicated (10/12/16 01:45) Lactic Acid Sepsis Protocol (10/12/16 01:45) Arterial Blood Gas (Abg) (10/12/16 01:45) Blood Culture (10/12/16 01:45) Chest, Single Ap (10/12/16 01:45) Ct Brain W/O Iv Contrast(Rout) (10/12/16 01:45) Blood Glucose (10/12/16 01:45) Ecg Monitoring (10/12/16 01:45) Iv Access Insert/Monitor (10/12/16 01:45) Oximetry (10/12/16 01:45) Sodium Chloride 0.9% Flush (Ns Flush) (10/12/16 01:45) Sodium Chlor 0.9% 1000 Ml Inj (Ns 1000 M (10/12/16 01:45) Succinylcholine Inj (Quelicin Inj) (10/12/16 01:45) Etomidate Inj (Amidate Inj) (10/12/16 01:45) Propofol 1000 Mg/100 Ml Inj (Diprivan 10 (10/12/16 01:45) ^ Infusion (10/12/16 01:45) RASS (10/12/16 01:45) Neurological Rass Scale GIGI.Q2H (10/12/16 01:45) ^ Orogastric Tube (10/12/16 01:45) Urinary Catheter Insert/Apply (10/12/16 01:45) Ct Thorax/ Chest Wo Iv Contras (10/12/16 ) Ct Abd/Pel W/O Iv Contrast (10/12/16 ) Urine Culture (10/12/16 01:50) Piperacil-Tazo 4.5 Gm Premix (Zosyn 4.5 (10/12/16 02:45) Vancomycin Inj (Vancomycin Inj) (10/12/16 02:45) Admit Order (Ed Use Only) (10/12/16 02:45) Labs MDM Medical Decision Making Medical Screen Exam Complete: Yes Emergency Medical Condition: Yes Medical Record Reviewed: Yes Interpretation(s) Twelve-lead EKG was reviewed by me. Normal sinus rhythm, normal axis, nonspecific ST-T wave changes. Heart rate of 99 bpm. Differential Diagnosis Intracranial bleed, opiate overdose, metabolic encephalopathy, sepsis Narrative Course 2:50 AM I intubated her given her mental status and poor respiratory effort. Please refer to my procedure note. Awaiting for the chemistry to be resulted. CBC shows leukocytosis and UA is significantly positive for UTI. She was given IV Zosyn and vancomycin. She is getting IV fluid bolus. I spoke with the tire maintenance technician was accepted the patient. Chest x-ray showed ET tube and OG tube in good position. Awaiting for the CT to be done and resulted. 5:04 AM I was called in the room at 4 AM by the nurse because the blood pressure was low. It started going from 70 systolic down to 60s and then 40s. I ordered norepinephrine drip. Patient was given a second liter of IV fluid bolus at this point. Nurse informed me that the antibiotics Zosyn had just finished and the vancomycin was not started yet by her. I inserted a central line on the right side. Please refer to my procedure note. As soon as a central line insertion was done and the lines were flushed and norepinephrine was started patient coated. Heart rate was noticed to go down to the 20s and no pulse was palpable. Immediately CPR was started and ACLS protocol was followed. Please refer to the nurse's code sheet regarding the medications and the times given. Eeler during this time was attempted to be called several time. Eventually the ROSC was obtained. I spoke with the and informed him about the critical condition of his . Awaiting for the chest x -ray to confirm that her line placement. Critical Care Narrative Aggregate critical care time was 120 minutes. Time to perform other separately billable procedures was not included in the critical care time. My time did not include minutes spent treating any other patients simultaneously or on activities that did not directly contribute to the patient's treatment. The services I provided to this patient were to treat and/or prevent clinically significant deterioration that could result in: Unresponsive, respiratory failure, sepsis, CPR, septic shock I provided critical care services requiring my management, as noted below: Chart data review, documentation time, medication orders and management, vital sign assessments/reviewing monitor data, ordering and reviewing lab tests, ordering and interpreting/reviewing x-rays and diagnostic studies, care of the patient and discussion of the patient with the admitting physicians. Procedures Procedure Narrative After the risks and benefits were discussed the following procedure was performed: INTUBATION: The patient was put in optimal position for the procedure. Rapid sequence intubation was initiated by me using 20 milligrams of etomidate IV and 100 milligrams of succinylcholine IV. The patient was intubated with a 7.5 cuffed endotracheal tube. Tube placement was confirmed by visualization of the tube and balloon passing through the cords, capnometry and subsequent chest x-ray. Breath sounds were equal and well aerated bilaterally postintubation. No breath sounds over stomach. Patient tolerated procedure well. CENTRAL VENOUS LINE: The site was prepped with Betadine and sterilely draped. It was infiltrated with 1% lidocaine plain. The deep vein was cannulated using normal Seldinger technique. A triple lumen central line was placed in the right subclavian site and secured with simple interrupted suture. The site was sterilely dressed. The patient tolerated the procedure well. EKG Prior to Arrival: No Physician Communication Physician Communication Dr. Corado Diagnosis Primary Impression: Unresponsive Additional Impressions: Respiratory failure Qualified Code: J96.01 - Acute respiratory failure with hypoxia and hypercapnia UTI (urinary tract infection) Qualified Code: N39.0 - Urinary tract infection without hematuria, site unspecified Dehydration Septic shock Cardiac arrest Admitting Information Admitting Physician Requests: Admit Lorenzo Rowan MD October 12, 2016 01:45 Urine Turbidity HAZY Urine pH 7.0 Urine Specific Eden 1.009 Urine Protein 100 mg/dL Urine Glucose (UA) 70 mg/dL Urine Ketones NEG mg/dL Urine Occult Blood SMALL Urine Nitrite NEG Urine Bilirubin NEG Urine Urobilinogen LESS THAN 2.0 MG/DL Urine Leukocyte Esterase SMALL Urine RBC 9 /hpf Urine WBC 26 /hpf Urine Squamous Epithelial 12 /hpf Cells Urine Amorphous Sediment RARE Urine Bacteria OCC /hpf Urine Hyaline Casts 1 /lpf Urine Mucus FEW /lpf Microscopic Urinalysis Comment CATH-CULTURE IND Sodium Level 134 MEQ/L Potassium Level 4.6 MEQ/L Chloride Level 98 MEQ/L Carbon Dioxide Level 23.9 MEQ/L Anion Gap 12 MEQ/L Blood Urea Nitrogen 23 MG/DL Creatinine 1.58 MG/DL Estimat Glomerular Filtration 33 ML/MIN Rate Random Glucose 151 MG/DL Calcium Level 8.6 MG/DL Total Bilirubin 0.5 MG/DL Aspartate Amino Transf 88 U/L (AST/SGOT) Alanine Aminotransferase 49 U/L (ALT/SGPT) Alkaline Phosphatase 73 U/L Total Creatine Kinase 72 U/L Troponin I LESS THAN 0.02 NG/ML Total Protein 8.4 GM/DL Albumin 3.7 GM/DL Thyroid Stimulating Hormone 0.531 uIU/ML 3rd Gen Lactic Acid Level 2.3 mmol/L Blood Gas Puncture Site RT FEMORAL Blood Gas Patient Temperature 98.6 Blood Gas HCO3 19 mmol/L Blood Gas Base Excess -6.7 mmol/L Blood Gas Oxygen Saturation 97 % Arterial Blood pH 7.27 Arterial Blood Partial 43 mmHg Pressure CO2 Arterial Blood Partial 508 mmHG Pressure O2 Arterial Blood Oxygen Content 18.3 Vol % Arterial Blood 2.3 % Carboxyhemoglobin Arterial Blood Methemoglobin 0.5 % Blood Gas Hemoglobin 12.4 G/DL Oxygen Delivery Device VENTILATOR Blood Gas Ventilator Setting AC 16/500/5PEEP Blood Gas Inspired Oxygen 100 % [facility] Medical Decision Making Medical Screen Exam Complete: Yes Emergency Medical Condition: Yes Medical Record Reviewed: Yes Interpretation(s) Twelve-lead EKG was reviewed by me. Normal sinus rhythm, normal axis, nonspecific ST-T wave changes. Heart rate of 99 bpm. Differential Diagnosis Intracranial bleed, opiate overdose, metabolic encephalopathy, sepsis Narrative Course 2:50 AM I intubated her given her mental status and poor respiratory effort. Please refer to my procedure note. Awaiting for the chemistry to be resulted. CBC shows leukocytosis and UA is significantly positive for UTI. She was given IV Zosyn and vancomycin. She is getting IV fluid bolus. I spoke with the tire maintenance technician was accepted the patient. Chest x-ray showed ET tube and OG tube in good position. Awaiting for the CT to be done and resulted. 5:04 AM I was called in the room at 4 AM by the nurse because the blood pressure was low. It started going from 70 systolic down to 60s and then 40s. I ordered norepinephrine drip. Patient was given a second liter of IV fluid bolus at this point. Nurse informed me that the antibiotics Zosyn had just finished and the vancomycin was not started yet by her. I inserted a central line on the right side. Please refer to my procedure note. As soon as a central line insertion was done and the lines were flushed and norepinephrine was started patient coated. Heart rate was noticed to go down to the 20s and no pulse was palpable. Immediately CPR was started and ACLS protocol was followed. Please refer to the nurse's code sheet regarding the medications and the times given. Eeler during this time was attempted to be called several time. Eventually the ROSC was obtained. I spoke with the and informed him about the critical condition of his . Awaiting for the chest x -ray to confirm that her line placement. Critical Care Narrative Aggregate critical care time was 120 minutes. Time to perform other separately billable procedures was not included in the critical care time. My time did not include minutes spent treating any other patients simultaneously or on activities that did not directly contribute to the patient's treatment. The services I provided to this patient were to treat and/or prevent clinically significant deterioration that could result in: Unresponsive, respiratory failure, sepsis, CPR, septic shock I provided critical care services requiring my management, as noted below: Chart data review, documentation time, medication orders and management, vital sign assessments/reviewing monitor data, ordering and reviewing lab tests, ordering and interpreting/reviewing x-rays and diagnostic studies, care of the patient and discussion of the patient with the admitting physicians. Procedures Procedure Narrative After the risks and benefits were discussed the following procedure was performed: INTUBATION: The patient was put in optimal position for the procedure. Rapid sequence intubation was initiated by me using 20 milligrams of etomidate IV and 100 milligrams of succinylcholine IV. The patient was intubated with a 7.5 cuffed endotracheal tube. Tube placement was confirmed by visualization of the tube and balloon passing through the cords, capnometry and subsequent chest x-ray. Breath sounds were equal and well aerated bilaterally postintubation. No breath sounds over stomach. Patient tolerated procedure well. CENTRAL VENOUS LINE: The site was prepped with Betadine and sterilely draped. It was infiltrated with 1% lidocaine plain. The deep vein was cannulated using normal Seldinger technique. A triple lumen central line was placed in the right subclavian site and secured with simple interrupted suture. The site was sterilely dressed. The patient tolerated the procedure well. EKG Prior to Arrival: No Physician Communication Physician Communication Dr. Corado Diagnosis Primary Impression: Unresponsive Additional Impressions: Respiratory failure Qualified Code: J96.01 - Acute respiratory failure with hypoxia and hypercapnia UTI (urinary tract infection) Qualified Code: N39.0 - Urinary tract infection without hematuria, site unspecified Dehydration Septic shock Cardiac arrest Admitting Information Admitting Physician Requests: Admit Lorenzo Rowan MD October 12, 2016 01:45
[2016-10-12 02:09] LABS: AUTOMATED NEUTROPHIL # 8.3 TH/MM3 (1.8-7.7); BASOPHIL % 0.3 % (0.0-2.0); EOSINOPHIL % 0.2 % (0.0-4.0); HEMATOCRIT 43.6 % (35.0-46.0); LYMPH % 36.9 % (9.0-44.0); MEAN CELL VOLUME 106.9 FL (80.0-100.0); MEAN CORPUSCULAR HEMOGLOBIN 34.9 PG (27.0-34.0); MEAN CORPUSCULAR HGB CONC 32.6 % (32.0-36.0); MONO % 11.7 % (0.0-8.0); NEUT % 50.9 % (16.0-70.0); PLATELET COUNT 261 TH/MM3 (150-450); RED BLOOD COUNT 4.08 MIL/MM3 (4.00-5.30); RED CELL DISTRIBUTION WIDTH 13.5 % (11.6-17.2); WHITE BLOOD COUNT 16.2 TH/MM3 (4.0-11.0)
[2016-10-12 02:18] LABS: BACTERIA, URINE OCC /hpf; BLOOD, URINE SMALL (NEG); COMMENT (UR) CATH-CULTURE IND; CULTURE IF INDICATED CATH CULTURE IND; GLUCOSE,URINE 70 mg/dL (NEG); HYALINE CAST, URINE 1 /lpf (RARE); KETONE, URINE NEG (NEG); MUCUS URINE FEW /lpf (OCC); NITRITE,URINE NEG (NEG); SQUAMOUS EPITHELIAL CELL URINE 12 /hpf (0-5); URINE COLOR LIGHT-YELLOW (YELLW/STRAW)
--- NOTE | 2016-10-12 02:25 | RADRPT ---
EXAM DATE/TIME: 10/12/2016 01:50 [facility] COMPARISON: CHEST SINGLE AP, September 15, 2016, 21:35. INDICATIONS : Post intubation. MEDICAL HISTORY : Cardiovascular disease. Chronic obstructive pulmonary disease. Hypertension. SURGICAL HISTORY : None. ENCOUNTER: Initial ACUITY: 1 day PAIN SCORE: Non-responsive. LOCATION: Bilateral chest FINDINGS: Endotracheal tube in satisfactory position. NG enters stomach. Mild hyperinflation. No focal consolid ation or effusion. CONCLUSION: 1. Endotracheal tube and nasogastric tube in satisfactory position. No pneumothorax. Dm Cantrell MD on October 12, 2016 at 2:23 Board Certified Radiologist. This report was verified electronically.
[2016-10-12 02:28] LABS: BLOOD GAS BASE EXCESS -6.7 mmol/L (-2-2); BLOOD GAS CARBOXYHEMOGLOBIN 2.3 % (0-4); BLOOD GAS HCO3 19 mmol/L (22-26); BLOOD GAS METHEMOGLOBIN 0.5 % (0-2); BLOOD GAS O2 HGB SATURATION 97 % (90-100); BLOOD GAS OXYGEN CONTENT 18.3 Vol % (12.0-20.0); BLOOD GAS PCO2 43 mmHg (38-42); BLOOD GAS PO2 508 mmHG (61-120); BLOOD GAS TOTAL HGB 12.4 G/DL (12.0-16.0); TEMP CORR TO 98.6
[2016-10-12 02:29] LABS: CRITICAL VALUE YES; DRAW SITE RT FEMORAL; FIO2 100 %; NUMBER OF ARTERIAL PUNCTURES 1; OXYGEN DEVICE VENTILATOR; STAT NO; VENT SETTINGS AC 16/500/5PEEP
[2016-10-12 02:37] LABS: HEMO FLAGS AUTO DIFF
[2016-10-12 02:39] LABS: INTERNATIONAL NORMALIZED RATIO 1.3 RATIO; PROTHROMBIN TIME - PATIENT 14.2 SEC (9.8-11.6)
[2016-10-12 02:44] LABS: ALT (GPT) 49 U/L (10-53); ANION GAP 12 MEQ/L (5-15); AST (GOT) 88 U/L (15-37); BICARBONATE 23.9 MEQ/L (21.0-32.0); BLOOD UREA NITROGEN 23 MG/DL (7-18); CHLORIDE 98 MEQ/L (98-107); GLOMERULAR FILTRATION RATE 33 ML/MIN (>89); POTASSIUM 4.6 MEQ/L (3.5-5.1); SODIUM (NA) 134 MEQ/L (136-145)
[2016-10-12] MEDS ORDERED: PIPERACIL-TAZO 4.5 GM PREMIX 100 ML IV ONE (02:45)
[2016-10-12] MEDS ORDERED: VANCOMYCIN INJ 1,000 MG in SODIUM CHLOR 0.9% 250 ML INJ 250 ML IV ONE (02:45)
--- NOTE | 2016-10-12 02:51 | RADRPT ---
EXAM DATE/TIME: 10/12/2016 02:33 [facility] COMPARISON: CT BRAIN W/O CONTRAST, September 03, 2016, 1:56. INDICATIONS : Found unresponsive. RADIATION DOSE: 56.35 CTDIvol (mGy) MEDICAL HISTORY : Chronic obstructive pulmonary disease. Gastroesophageal reflux disease. Gastroparesis.Pancreatitis. D iverticulitis. Hiatal hernia. Congestive heart failure. Hepatitis B. Hypertension. SURGICAL HISTORY : Hysterectomy. Tubal ligation.Cholecystectomy.Cervical fusion. ENCOUNTER: Initial ACUITY: 1 day PAIN SCALE: Non-responsive LOCATION: cranial TECHNIQUE: Multiple contiguous axial images were obtained of the head. Using automated exposure control and adj ustment of the mA and/or kV according to patient size, radiation dose was kept as low as reasonably a chievable to obtain optimal diagnostic quality images. FINDINGS: CEREBRUM: The ventricles are normal for age. No evidence of midline shift, mass lesion, hemorrhage or acute in farction. No extra-axial fluid collections are seen. POSTERIOR FOSSA: The cerebellum and brainstem are intact. The 4th ventricle is midline. The cerebellopontine angle i s unremarkable. EXTRACRANIAL: The visualized portion of the orbits is intact. SKULL: The calvaria is intact. No evidence of skull fracture. CONCLUSION: 1. No acute intracranial abnormalities. Cortical atrophic changes. Dm Cantrell MD on October 12, 2016 at 2:48 Board Certified Radiologist. This report was verified electronically.
[2016-10-12 02:54] LABS: ALKALINE PHOSPHATASE 73 U/L (45-117); TOTAL BILIRUBIN ADULT 0.5 MG/DL (0.2-1.0)
[2016-10-12 02:55] LABS: CREATINE KINASE 72 U/L (26-192)
--- NOTE | 2016-10-12 03:10 | RADRPT ---
EXAM DATE/TIME: 10/12/2016 02:35 [facility] COMPARISON: No previous studies available for comparison. INDICATIONS : Found unresponsive. RADIATION DOSE: 5.17 CTDIvol (mGy) ; Combined studies - Thorax/Abdomen/Pelvis MEDICAL HISTORY : Chronic obstructive pulmonary disease. Gastroesophageal reflux disease. Gastroparesis. Hypertension. Congestive heart failure. Pancreatitis. Diverticulitis. Hiatal hernia. Hepatitis B. SURGICAL HISTORY : Hysterectomy. Tubal ligation.Cholecystectomy. Cervical fusion. ENCOUNTER: Initial ACUITY: 1 day PAIN SCALE: Non-responsive LOCATION: Bilateral chest TECHNIQUE: Volumetric scanning of the chest was performed. Using automated exposure control and adjustment of t he mA and/or kV according to patient size, radiation dose was kept as low as reasonably achievable to obtain optimal diagnostic quality images. FINDINGS: There is moderate emphysema. Scattered patchy airspace disease in the lungs with peribronchial thicke anca, bronchiolectasis and distal mucoid plugging. Findings could represent chronic changes of atypic al mycobacterial infection or repeated aspirations. There is no pleural or pericardial fluid. Moderate coronary calcifications. No hilar, axillary or med iastinal adenopathy. Nasogastric tube enters stomach. Previous cholecystectomy. CONCLUSION: 1. Moderate emphysema. 2. Endotracheal tube and nasogastric tube in satisfactory position. 3. Scattered airspace disease in the lungs with peribronchial thickening, mild bronchiectasis and bro nchiolectasis with distal mucoid plugging. Primary differential diagnosis is chronic atypical mycobac terial infection or repeated aspiration. Dm Cantrell MD on October 12, 2016 at 2:59 Board Certified Radiologist. This report was verified electronically.
--- NOTE | 2016-10-12 03:16 | RADRPT ---
EXAM DATE/TIME: 10/12/2016 02:35 [facility] COMPARISON: CT ABDOMEN & PELVIS W/O CONTRAST, October 07, 2016, 9:11. INDICATIONS : Found unresponsive. ORAL CONTRAST: No oral contrast ingested. RADIATION DOSE: 5.17 CTDIvol (mGy) ; Combined studies - Thorax/Abdomen/Pelvis MEDICAL HISTORY : Gastroesophageal reflux disease. Chronic obstructive pulmonary disease. Gastroparesis.Congestive hear t failure. Hypertension. Pancreatitis. Diverticulitis. Hiatal hernia. Hepatitis B. SURGICAL HISTORY : Tubal ligation. Hysterectomy.Cholecystectomy.Cervical fusion. ENCOUNTER: Initial ACUITY: 1 day PAIN SCALE: Non-responsive LOCATION: Bilateral abdomen TECHNIQUE: Volumetric scanning of the abdomen and pelvis was performed. Using automated exposure control and ad justment of the mA and/or kV according to patient size, radiation dose was kept as low as reasonably achievable to obtain optimal diagnostic quality images. FINDINGS: Compare October 07. Lung bases demonstrate patchy airspace disease and peribronchial thickening. See ches t CT report. NG tip in stomach. No acute findings in the liver, spleen, adrenals, right kidney or pancreas. Left-s ided renal calculi are nonobstructing and stable in appearance. No free fluid within the bowel obstruction. Adenopathy. There is extensive colonic diverticulosis wit hout evidence for diverticulitis. Elmore catheter present in the bladder. Patient's incontinence of co ntrast table. CONCLUSION: 1. No acute findings within the abdomen or pelvis. Diverticulosis. Nonobstructing left renal calculi. NG tip in stomach. Elmore catheter in bladder. Dm Cantrell MD on October 12, 2016 at 3:08 Board Certified Radiologist. This report was verified electronically.
[2016-10-12 03:34] LABS: BANDS 3 % (0-6); BASOPHILS 1 % (0-2); METAMYELOCYTES 1 % (0-1); NEUTROPHIL # MANUAL DIFF 8.4 TH/MM3 (1.8-7.7); POLYS (SEG NEUTROPHILS) 48 % (16-70); WBC DIFF SAMPLE 100
[2016-10-12 03:36] LABS: PLATELET ESTIMATE SMEAR NORMAL (NORMAL); PLATELET MORPHOLOGY NORMAL (NORMAL); SCAN/DIFF FINAL DIFF MANUAL
[2016-10-12 04:04] LABS: LACTIC ACID GHOST NOT REPORTABLE
[2016-10-12] MEDS ORDERED: SODIUM CHLOR 0.9% 1000 ML INJ 1,000 ML IV ONE (04:15)
[2016-10-12] MEDS ORDERED: NOREPINEPHRINE-DEXTROSE DRIP 250 ML IV SCH (04:30)
[2016-10-12] MEDS ORDERED: TERBUTALINE INJ 1 MG/ML AMP SQ PRN ×2 (04:30→07:00)
[2016-10-12] MEDS ORDERED: DEXTROSE 50% IN WATER 50 ML SYRINGE IV ONE (05:00)
[2016-10-12] MEDS ORDERED: EPINEPHrine HCL (1:10,000) 1 MG/10 ML SYRINGE IV ONE (05:00)
[2016-10-12] MEDS ORDERED: DOPamine INJ PREMIX 500 ML IV ONE (05:00)
[2016-10-12 05:10] LABS: I-STAT POTASSIUM 3.2 MMOL/L (3.5-4.9)
--- NOTE | 2016-10-12 05:10 | HHI.HP ---
HPI Service Critical Care Medicine Primary Care Physician Unknown Admission Diagnosis acute respiratory failure, unresponsive, sepsis, UTI Diagnosis: Travel History International Travel<30 Days: No Contact w/Intl Traveler <30 Da: No Traveled to Known Affected Are: No History of Present Illness 66 yo WF with PMH of COPD, hypertension, chronic pain on long-term opiates, pancreatitis who presents to [facility] emergency department due to unresponsiveness. Her is at bedside and states that she had been nauseous and therefore refused to take her narcotic medications since 10/08. He noticed that tonight she was having epigastric abdominal discomfort and dry heaves which he has seen when she has narcotic withdrawal in the past. He gave her OxyContin 40 mg at 1500, 40 mg at 1700 and 40 mg at 2000 on 10/11. He gave her Restoril and trazodone at 2200. He saw her at 23:30 and states she was fine. At midnight he found her unresponsive in the bathroom. EVAC administered Narcan without significant response. Blood glucose is 165. She arrived to the ED being bagged. She was intubated upon arrival. She was initially hypertensive 204/72 and ED physician reported concern for ICH or stroke so CT brain was performed that was negative for acute abnormalities. ED workup included white blood cell count of 16, creatinine 1.58, sodium 134., Lactic acid 2.3. She was administered Zosyn and vancomycin. CT chest abdomen and pelvis were obtained. She had moderate emphysema, evidence of aspiration. No acute intra-abdominal findings. She was placed on propofol for sedation. Her peripheral blood pressure continuously down trended and she became hypotensive with blood pressure in the 60s. Central venous line was placed by Dr. Rowan and she was placed on Levaquin at 5 mcg/m. After the central venous line was placed she was positioned upright and had a bradycardia PEA arrest 4 minutes in duration. She received epinephrine 3, atropine 1 mg IV. Dopamine was added at 5 mcg/min. Postarrest chest x-ray demonstrated satisfactory central venous line position without pneumothorax. Patient is hypothermic with core temp 93.5. Obtain bedside glucose which was 80 and administered half amp of D50. Post arrest lactic acid 1.3. ABG with pH 7.19/ PaCO2 45/PaCO2 525/bicarbonate 17 Past Family Social History Allergies: Coded Allergies: Bactrim (Verified Allergy, Severe, "VOMITING", 10/06/16) Inderal (Verified Allergy, Severe, "CAUSES ASTHMA ATTACK", 10/06/16) Indocin (Verified Allergy, Severe, "NAUSEA", 10/06/16) Penicillin (Verified Allergy, Severe, "HEART FAILURE", 10/06/16) Procardia (Verified Allergy, Severe, "RAPID HEART BEAT", 10/06/16) states does not have a allergy to this medication carlos Grullon 08/15/16 Lanoxin (Verified Adverse Reaction, Unknown, Arrhythmias, 10/06/16) Past Medical History COPD Chronic pain Diverticulosis Pancreatitis Hyperlipidemia and Insomnia Chronic neck and back pain Myeloproliferative disorder Gastroparesis IBS Chronic urinary tract infection Incontinence Hiatal hernia Hypertension GERD Migraine headaches states she has had difficulty with short term and long-term memory since April 2016 for which she was evaluated by neurology and it was felt to be secondary to sepsis Pillowcase Turner is Dr. Talley, Bacteriology Teacher Rj, Urologist Davis Campbell, neurologist. [facility] Hematology. Past Surgical History Cholecystectomy 1977 Inguinal hernia repair 2 1994 and 1997 Anterior cervical Hysterectomy 1994 Bladder sling 2002 Cervical fusion /1998 Reported Medications Zofran 8 mg by mouth 3 times a day when necessary nausea Enalapril 20 mg by mouth twice a day Trazodone 50 mg by mouth daily at bedtime Lactobacillus 2 caps by mouth 3 times a day Temazepam 30 mg by mouth daily at bedtime Albuterol 1 puff inhaled every 4 hours when necessary Carvedilol 6.25 mill grams by mouth 3 times a day Cholestyramine 4 g by mouth twice a day Soma 350 mg by mouth daily at bedtime Advair 100/51 puff inhaled twice a day Creon 3000/9500/15,000 one by mouth daily Estrace applied vaginally twice a day Oxycodone 15 mg by mouth twice a day when necessary Oxycodone ER 40 mg by mouth 3 times a day Aspirin 81 mg daily Hydroxyurea 500 mg by mouth daily Bethanechol 12.5 mg by mouth half an hour before meals Omeprazole 40 mEq by mouth daily Potassium chloride 40 mEq by mouth daily Treximet 85/500 one tab by mouth every 12 12 hours when necessary migraines Methenamine Hippurate 0.5 mg by mouth twice a day Family History does not appear any significant family medical history. Social History 2 packs of cigarettes per day for ~35 years with ongoing tobacco abuse. No alcohol or illicit drug use Physical Exam Vital Signs Vital Signs Date Time Temp Pulse Resp B/P Pulse Ox O2 Delivery O2 Flow Rate FiO2 10/12/16 04:13 99 50 10/12/16 02:49 100 50 10/12/16 02:01 94 16 118/55 100 10/12/16 01:50 100 100 10/12/16 01:43 94 16 204/72 95 10/12/16 01:43 100 Physical Exam GENERAL: Likely ill-appearing female who is orotracheally intubated. SKIN: Warm and dry. HEAD: Atraumatic. Normocephalic. EYES: Pupils 5 mm and sluggishly reactive.. No scleral icterus. No injection or drainage. ENT: No nasal bleeding or discharge. Mucous membranes dry NECK: Trachea midline. No JVD. CARDIOVASCULAR: Tachycardic, regular, sinus tach on the monitor with no murmurs rubs or gallops. RESPIRATORY: Coarse bilateral breath sounds. GASTROINTESTINAL: Abdomen soft, non-tender, nondistended. Bowel sounds present. MUSCULOSKELETAL: Extremities without clubbing, cyanosis, or edema. No obvious deformities. NEUROLOGICAL: Eyes open to noxious stimuli, spontaneously moves all extremities without focal deficit, withdraws all extremities. Laboratory Laboratory Tests Test 10/12/16 10/12/16 10/12/16 01:50 01:56 02:18 White Blood Count 16.2 Red Blood Count 4.08 Hemoglobin 14.2 Hematocrit 43.6 Mean Corpuscular Volume 106.9 Mean Corpuscular Hemoglobin 34.9 Mean Corpuscular Hemoglobin 32.6 Concent Red Cell Distribution Width 13.5 Platelet Count 261 Mean Platelet Volume 9.2 Neutrophils (%) (Auto) 50.9 Lymphocytes (%) (Auto) 36.9 Monocytes (%) (Auto) 11.7 Eosinophils (%) (Auto) 0.2 Basophils (%) (Auto) 0.3 Neutrophils # (Auto) 8.3 Lymphocytes # (Auto) 6.0 Monocytes # (Auto) 1.9 Eosinophils # (Auto) 0.0 Basophils # (Auto) 0.0 CBC Comment AUTO DIFF Differential Total Cells 100 Counted Neutrophils % (Manual) 48 Band Neutrophils % 3 Lymphocytes % 37 Monocytes % 10 Basophils % 1 Neutrophils # (Manual) 8.4 Metamyelocytes 1 Differential Comment FINAL DIFF MANUAL Atypical Lymphocytes Platelet Estimate NORMAL Platelet Morphology Comment NORMAL Prothrombin Time 14.2 Prothromb Time International 1.3 Ratio Urine Color LIGHT-YELLOW Urine Turbidity HAZY Urine pH 7.0 Urine Specific [place] 1.009 Urine Protein 100 Urine Glucose (UA) 70 Urine Ketones NEG Urine Occult Blood SMALL Urine Nitrite NEG Urine Bilirubin NEG Urine Urobilinogen LESS THAN 2.0 Urine Leukocyte Esterase SMALL Urine RBC 9 Urine WBC 26 Urine Squamous Epithelial 12 Cells Urine Amorphous Sediment RARE Urine Bacteria OCC Urine Hyaline Casts 1 Urine Mucus FEW Microscopic Urinalysis Comment CATH-CULTURE IND Sodium Level 134 Potassium Level 4.6 Chloride Level 98 Carbon Dioxide Level 23.9 Anion Gap 12 Blood Urea Nitrogen 23 Creatinine 1.58 Estimat Glomerular Filtration 33 Rate Random Glucose 151 Calcium Level 8.6 Total Bilirubin 0.5 Aspartate Amino Transf 88 (AST/SGOT) Alanine Aminotransferase 49 (ALT/SGPT) Alkaline Phosphatase 73 Total Creatine Kinase 72 Troponin I LESS THAN 0.02 Total Protein 8.4 Albumin 3.7 Thyroid Stimulating Hormone 0.531 3rd Gen Lactic Acid Level 2.3 Blood Gas Puncture Site RT FEMORAL Blood Gas Patient Temperature 98.6 Blood Gas HCO3 19 Blood Gas Base Excess -6.7 Blood Gas Oxygen Saturation 97 Arterial Blood pH 7.27 Arterial Blood Partial 43 Pressure CO2 Arterial Blood Partial 508 Pressure O2 Arterial Blood Oxygen Content 18.3 Arterial Blood 2.3 Carboxyhemoglobin Arterial Blood Methemoglobin 0.5 Blood Gas Hemoglobin 12.4 Oxygen Delivery Device VENTILATOR Blood Gas Ventilator Setting AC 16/500/5PEEP Blood Gas Inspired Oxygen 100 Date/Time Procedure Status Source Growth 10/12/16 01:50 Urine Culture Worksheet Urine Catheterized Urine Pending 10/12/16 01:50 Aerobic Blood Culture Received Blood Peripheral Pending 10/12/16 01:50 Anaerobic Blood Culture Received Blood Peripheral Pending Result Diagram: 10/12/16 0150 10/12/16 0150 Assessment and Plan Assessment and Plan NEURO: Chronic pain Opiate overdose (OxyContin) Acute encephalopathy Migraine headaches On propofol for sedation. His hypotensive on propofol for this dose has been minimized. Versed 2 mg IV every 15 minutes as needed. Follow-up salicylate and Tylenol level. RASS -2 Hypothermia - rewarming with warm IVF, warming blanket. Hold trazodone , Soma, Restoril RESP: Acute respiratory failure COPD Emphysema Tobacco abuse Aspiration pneumonia Bronchiectasis Intubated in emergency Department for airway protection. Ventilator adjusted because she was double triggering and resulting in hyperdynamic inflation. ACV tidal volume 550/rate 16/PP/FiO2 60 DuoNeb every 4 hours. Albuterol every [address] chest noncontrasted Emphysema with bilateral scattered infiltrates Resume Advair when extubated CV: PEA cardiac arrest 4 minutes in ED (appears secondary to hypotension, hypovolemia, dynamic hyperinflation) Septic shock secondary to aspiration pneumonia History of hypertension Serial lactic acid Patient received 2 L normal saline bolus in the emergency department. She still appears clinically dry. Bolus LR. D5 LR at 125 L per hour Levophed to maintain mean atrial pressure greater than 65 Hold enalapril 20 mg by mouth twice a day, carvedilol 6.25 mg 3 times a day Continue aspirin 81 daily GI: GERD Diverticulosis Gastroparesis Hiatal hernia Nothing by mouth. OGT tube to low intermittent wall suction. Resume Creon when taking po. FEN/RENAL: Acute kidney injury Dehydration Baseline creatinine is ~0.[address] Monitor intake and output. Monitor electrolytes. Replace electrolytes as indicated D5 LR 125 L per hour. ID: [id number] History of recurrent UTI Aspiration pneumonia Received Zosyn and vancomycin in the emergency department which will continue due to septic shock She was prescribed cefazolin 3 weeks ago for a UTI but has not taken her antibiotics in 3 days. Prior to that she was on Macrobid. Methenamine hippurate for prevention. HEME: Myeloproliferative disorder Monitor CBC Hydrea 500 mg by mouth daily ENDO: Given 1/2 amp of D50 in the emergency department as glucose at down trended from 151 to 80 and she was hypothermic. Placed on dextrose containing fluids as per above. PROPH: SCDs. Heparin 5000 units subcutaneous every 12 hours for DVT prophylaxis. Protonix 40 mg IV daily for stress ulcer prophylaxis. ACCESS: R subclavian CVL placed per ED physician 10/12 #1. Patient's updated at bedside. He is very distraught over giving her oxycontin resulting in her critical illness. Full code Critical care time 60 minutes exclusive of separately billable procedures Maritza Corado MD October 12, 2016 05:10
[2016-10-12] MEDS ORDERED: MIDAZOLAM HCL 5 MG/ML VIAL (1 ML) ONE (05:35)
[2016-10-12 05:42] LABS: BLOOD GAS BASE EXCESS -10.2 mmol/L (-2-2); BLOOD GAS CARBOXYHEMOGLOBIN 1.4 % (0-4); BLOOD GAS HCO3 17 mmol/L (22-26); BLOOD GAS METHEMOGLOBIN 0.4 % (0-2); BLOOD GAS O2 HGB SATURATION 98 % (90-100); BLOOD GAS OXYGEN CONTENT 16.7 Vol % (12.0-20.0); BLOOD GAS PCO2 45 mmHg (38-42); BLOOD GAS PO2 525 mmHG (61-120); BLOOD GAS TOTAL HGB 11.1 G/DL (12.0-16.0); TEMP CORR TO 98.6
--- NOTE | 2016-10-12 05:42 | RADRPT ---
EXAM DATE/TIME: 10/12/2016 05:18 [facility] COMPARISON: CHEST SINGLE AP, October 12, 2016, 1:50. INDICATIONS : Central line placement. MEDICAL HISTORY : Gastroesophageal reflux disease. Chronic obstructive pulmonary disease. Congestive heart failure. Hypertension SURGICAL HISTORY : Tubal ligation. Hysterectomy. Cholecystectomy. Cervical fusion ENCOUNTER: Subsequent ACUITY: 1 day PAIN SCORE: Non-responsive. LOCATION: Right chest FINDINGS: Endotracheal tube tip in gastric position. NG enters stomach. Right central line in superior vena cav a. Interstitial prominence with minimal basilar airspace disease. CONCLUSION: 1. Placement of right central line in superior vena cava without pneumothorax. Mild basilar airspace disease. Dm Cantrell MD on October 12, 2016 at 5:40 Board Certified Radiologist. This report was verified electronically.
[2016-10-12 05:43] LABS: CRITICAL VALUE YES; DRAW SITE RT FEMORAL; FIO2 100 %; NUMBER OF ARTERIAL PUNCTURES 1; OXYGEN DEVICE VENTILATOR; STAT YES; ULNAR PULSE PRESENT; VENT SETTINGS AC/20/500/PEEP5
[2016-10-12] MEDS ORDERED: SODIUM BICARBONATE 8.4% SOLN 50 MEQ/50 ML VIAL IV PUSH ONE (05:45)
[2016-10-12 06:12] LABS: MEAN CELL VOLUME 106.2 FL (80.0-100.0); MEAN CORPUSCULAR HEMOGLOBIN 35.2 PG (27.0-34.0); MEAN CORPUSCULAR HGB CONC 33.1 % (32.0-36.0); PLATELET COUNT 155 TH/MM3 (150-450); RED BLOOD COUNT 3.11 MIL/MM3 (4.00-5.30); RED CELL DISTRIBUTION WIDTH 13.7 % (11.6-17.2); REVIEW FLAG FINAL; WHITE BLOOD COUNT 13.2 TH/MM3 (4.0-11.0)
[2016-10-12] MEDS ORDERED: Vancomycin Consult Pharmacy 1 EA OTHER SCH (06:45)
[2016-10-12 06:55] LABS: AMPHETAMINE, URINE NEG (NEG); BARBITURATES, URINE NEG (NEG); COCAINE, URINE NEG (NEG)
[2016-10-12] MEDS ORDERED: MIDAZOLAM HCL 2 MG/2 ML VIAL IV PUSH ONE (07:00)
[2016-10-12] MEDS ORDERED: SODIUM CHLORIDE 0.9% FLUSH 10 ML FLUSH IV FLUSH PRN (07:00)
[2016-10-12] MEDS ORDERED: LACTATED RINGER'S 1000 ML INJ 1,000 ML IV ONE ×2 (07:00→10:45)
[2016-10-12] MEDS ORDERED: MISCELLANEOUS NURSING INFORMATION XX SCH (07:00)
[2016-10-12] MEDS: DEXTROSE 5%-LACTATED RING INJ 1,000 ML IV SCH ×2 (07:00→14:22)
[2016-10-12] MEDS ORDERED: MIDAZOLAM HCL 2 MG/2 ML VIAL IV PRN (07:00)
[2016-10-12] MEDS ORDERED: CHLORHEXIDINE GLUCONATE 2 % 1 PACK (2 CLOTHS) TOP PRN (07:00)
[2016-10-12] MEDS: RESP: ALBUTEROL 2.5 MG/IPRATROPIUM 0.5 MG NEB (SCH) INH ×6 (07:24→23:29)
[2016-10-12] MEDS: metroNIDAZOLE 500 MG INJ 100 ML IV SCH ×3 (07:30→22:53)
[2016-10-12] MEDS ORDERED: MIDAZOLAM HCL 2 MG/2 ML VIAL IV PUSH PRN (07:30)
[2016-10-12] MEDS: CHLORHEXIDINE 0.12% (ORAL KIT) 15 ML CUP MT SCH ×2 (08:00→20:00)
[2016-10-12] MEDS ORDERED: LACTULOSE SYRUP 20 GM/30 ML CUP PO PRN (09:00)
[2016-10-12] MEDS: HEPARIN SODIUM - SQ 10,000 UNITS/ML VIAL SQ SCH ×2 (09:00→20:00)
[2016-10-12] MEDS ORDERED: SENNOSIDES 8.6 MG TAB PO PRN (09:00)
[2016-10-12] MEDS ORDERED: PIPERACIL-TAZO 4.5 GM PREMIX 100 ML IV SCH (09:00)
[2016-10-12] MEDS: SODIUM CHLORIDE 0.9% FLUSH 10 ML FLUSH SCH ×2 (09:00→20:00)
[2016-10-12] MEDS: PANTOPRAZOLE SODIUM 40 MG VIAL IV SCH (09:00)
[2016-10-12] MEDS ORDERED: MAGNESIUM HYDROXIDE SUSP 30 ML CUP PO PRN (09:00)
[2016-10-12] MEDS ORDERED: BISACODYL 10 MG SUPP RECTAL PRN (09:00)
[2016-10-12] MEDS: DOCUSATE SODIUM 50 MG/SENNA 8.6 MG TAB PO SCH ×2 (09:00→20:00)
[2016-10-12] MEDS: PROPOFOL 1000 MG/100 ML INJ 100 ML IV SCH (09:25)
[2016-10-12] MEDS: NOREPINEPHRINE-DEXTROSE DRIP 250 ML IV SCH ×2 (09:25→11:19)
[2016-10-12] MEDS: AZTREONAM INJ 2,000 MG in SODIUM CHLORIDE 0.9% INJ 100 ML IV SCH ×2 (09:58→15:30)
[2016-10-12] MEDS ORDERED: RESP: ALBUTEROL 2.5 MG/IPRATROPIUM 0.5 MG NEB (SCH) INH (10:00)
[2016-10-12] MEDS ORDERED: RESP: ALBUTEROL 2.5 MG/3 ML NEB (PRN) INH (10:00)
[2016-10-12] MEDS: VASOPRESSIN INJ 40 UNITS in DEXTROSE 5% IN WATER 100ML INJ 98 ML IV SCH ×2 (10:22)
[2016-10-12] MEDS ORDERED: DEXTROSE 50% IN WATER 50 ML VIAL(D50) IV PUSH ONE (10:45)
[2016-10-12] MEDS ORDERED: ALBUTEROL SULFATE 90 MCG/ACT HFA 8 GM INHALER INH PRN (11:00)
[2016-10-12] MEDS ORDERED: POTASSIUM CHLOR 20 MEQ PREMIX 100 ML IV ONE (11:00)
[2016-10-12] MEDS: LACTOBACILLUS ACIDOPHILUS TAB PO SCH ×3 (11:28→16:46)
[2016-10-12] MEDS ORDERED: ALBUTEROL SULFATE 90 MCG/ACT HFA 18 GM INHALER INH PRN (11:53)
[2016-10-12 12:39] LABS: ACETAMINOPHEN 3.4 MCG/ML (10.0-30.0); BICARBONATE 20.4 MEQ/L (21.0-32.0); POTASSIUM 3.3 MEQ/L (3.5-5.1)
[2016-10-12 12:57] LABS: CALCIUM-PROTEIN CORRECTED 7.5 MG/DL (8.5-10.1)
[2016-10-12] MEDS: ONDANSETRON HCL 4 MG/2 ML VIAL IV PRN ×2 (14:40→20:01)
--- NOTE | 2016-10-12 14:49 | EKG ---
Date Performed: 10/12/2016 Time Performed: 13:47:32 PTAGE: 66 years EKG: Sinus rhythm INCOMPLETE RIGHT BUNDLE BRANCH BLOCK NONSPECIFIC T-WAVE ABNORMALITY BORDERLINE ECG COMPARED TO PRIOR ELECTROCARDIOGRAM, Rate has slowed. PREVIOUS TRACING : 10/12/2016 04.54 DOCTOR: Yovanny Zeng Interpretating Date/Time 10/12/2016 14:49:38
--- NOTE | 2016-10-12 16:04 | EKG ---
Date Performed: 10/12/2016 Time Performed: 04:54:53 PTAGE: 66 years EKG: SINUS TACHYCARDIA INCOMPLETE RIGHT BUNDLE BRANCH BLOCK NONSPECIFIC T-WAVE ABNORMALITY When compared to previous tracing, no significant change. ABNORMAL RHYTHM ECG PREVIOUS TRACING : 10/12/2016 01.41 DOCTOR: Parish Singh Interpretating Date/Time 10/12/2016 16:03:58
--- NOTE | 2016-10-12 16:04 | EKG ---
Date Performed: 10/12/2016 Time Performed: 01:41:54 PTAGE: 66 years EKG: Sinus rhythm POSSIBLE LEFT ATRIAL ENLARGEMENT POSSIBLE RIGHT VENTRICULAR CONDUCTION DELAY When compared to previo us tracing, the right ventricular Conduction delay is new, otherwise no significant change. BORDERLIN E ECG PREVIOUS TRACING : 09/15/2016 21.43 DOCTOR: Parish Singh Interpretating Date/Time 10/12/2016 16:02:48
[2016-10-12] MEDS: LORazepam 2 MG/ML VIAL IV PUSH PRN ×2 (17:15→22:10)
[2016-10-12] MEDS: ACETAMINOPHEN 325 MG TAB PO PRN (17:19)
[2016-10-12] MEDS: HYDROmorphone HCL PF 1 MG/ML VIAL IV PUSH PRN (18:43)
--- NOTE | 2016-10-12 20:42 | EKG ---
Date Performed: 10/12/2016 Time Performed: 18:53:40 PTAGE: 66 years EKG: SINUS TACHYCARDIA POSSIBLE RIGHT VENTRICULAR CONDUCTION DELAY NONSPECIFIC T-WAVE ABNORMALIT Y ABNORMAL RHYTHM ECG NO SIGNIFICANT CHANGE FROM PRIOR ELECTROCARDIOGRAM. PREVIOUS TRACING : 10/12/2016 13.47 DOCTOR: Yovanny Zeng Interpretating Date/Time 10/12/2016 20:41:40
[2016-10-13] VITALS (15 sets, daily range): BP systolic 95–172; BP diastolic 52–79; PULSE 93–146; RESP 16–27; TEMP 99.7–101.8; O2SAT 93–100
[2016-10-13] MEDS: ACETAMINOPHEN 325 MG TAB PO PRN ×2 (00:08→11:04)
[2016-10-13] MEDS: AZTREONAM INJ 2,000 MG in SODIUM CHLORIDE 0.9% INJ 100 ML IV SCH ×3 (00:09→16:17)
[2016-10-13] MEDS: DEXTROSE 5%-LACTATED RING INJ 1,000 ML IV SCH ×3 (00:09→15:00)
[2016-10-13] MEDS: LORazepam 2 MG/ML VIAL IV PUSH PRN ×3 (02:18→21:45)
[2016-10-13] MEDS: ONDANSETRON HCL 4 MG/2 ML VIAL IV PRN ×4 (02:19→20:12)
[2016-10-13] MEDS ORDERED: VANCOMYCIN INJ 1,200 MG in SODIUM CHLOR 0.9% 250 ML INJ 250 ML IV SCH (03:00)
[2016-10-13] MEDS: RESP: ALBUTEROL 2.5 MG/IPRATROPIUM 0.5 MG NEB (SCH) INH ×5 (03:05→20:29)
[2016-10-13] MEDS: CHLORHEXIDINE GLUCONATE 2 % 1 PACK (2 CLOTHS) TOP SCH (04:00)
[2016-10-13] MEDS: VASOPRESSIN INJ 40 UNITS in DEXTROSE 5% IN WATER 100ML INJ 98 ML IV SCH ×2 (05:26)
[2016-10-13 05:55] LABS: AUTOMATED NEUTROPHIL # 6.2 TH/MM3 (1.8-7.7); BASOPHIL % 0.2 % (0.0-2.0); LYMPH % 16.8 % (9.0-44.0); LYMPHOCYTE # 1.4 TH/MM3 (1.0-4.8); MEAN CELL VOLUME 104.3 FL (80.0-100.0); MEAN CORPUSCULAR HEMOGLOBIN 34.2 PG (27.0-34.0); MEAN CORPUSCULAR HGB CONC 32.8 % (32.0-36.0); MONO % 7.6 % (0.0-8.0); NEUT % 75.4 % (16.0-70.0); PLATELET COUNT 74 TH/MM3 (150-450); RED BLOOD COUNT 3.07 MIL/MM3 (4.00-5.30); RED CELL DISTRIBUTION WIDTH 13.2 % (11.6-17.2); WHITE BLOOD COUNT 8.2 TH/MM3 (4.0-11.0)
[2016-10-13 06:01] LABS: HEMO FLAGS AUTO DIFF
[2016-10-13 06:13] LABS: MAGNESIUM 0.8 MG/DL (1.5-2.5)
[2016-10-13 06:16] LABS: POTASSIUM 2.8 MEQ/L (3.5-5.1)
[2016-10-13 06:29] LABS: CALCIUM-PROTEIN CORRECTED 7.1 MG/DL (8.5-10.1)
--- NOTE | 2016-10-13 06:33 | RADRPT ---
EXAM DATE/TIME: 10/13/2016 04:13 [facility] COMPARISON: CHEST SINGLE AP, October 12, 2016, 5:18. INDICATIONS : Respiratory failure. MEDICAL HISTORY : Gastroesophageal reflux disease. Chronic obstructive pulmonary disease. Crohn's disease. Hyperten pedro. SURGICAL HISTORY : Tubal ligation. Hysterectomy. Cholecystectomy. Cerivcal spine fusion. ENCOUNTER: Subsequent ACUITY: 1 day PAIN SCORE: Non-responsive. LOCATION: Bilateral chest FINDINGS: There has been interval extubation. Nasogastric tube is been removed. Right subclavian central line r emains in good position. Minimal basilar parenchymal opacities are present. Cardiac contours are chaka sly stable CONCLUSION: Interval extubation. Minimal bibasilar parenchymal opacities. Mayur Sood MD on October 13, 2016 at 6:30 Board Certified Radiologist. This report was verified electronically.
[2016-10-13] MEDS ORDERED: POTASSIUM CHLORIDE 25 MEQ EFFERVESCENT TAB PO PRN (07:00)
[2016-10-13] MEDS ORDERED: POTASSIUM CHLOR 20 MEQ PREMIX 100 ML IV PRN (07:00)
[2016-10-13] MEDS ORDERED: POTASSIUM PHOSPHATE MONOBASIC 500 MG TAB PO PRN (07:00)
[2016-10-13] MEDS ORDERED: POTASSIUM PHOSPHATE MONOBASIC 500 MG TAB PO/TUBE PRN (07:00)
[2016-10-13] MEDS ORDERED: POTASSIUM CHLOR 40 MEQ PREMIX 100 ML IV-CENTRAL PRN (07:00)
[2016-10-13] MEDS ORDERED: MAGNESIUM OXIDE 400 MG TAB PO PRN (07:00)
--- NOTE | 2016-10-13 07:07 | HHI.CCPN ---
Subjective Remarks/Hospital Course 66 yo WF with PMH of COPD, hypertension, chronic pain on long-term opiates, pancreatitis who presents to [facility] emergency department due to unresponsiveness. Her is at bedside and states that she had been nauseous and therefore refused to take her narcotic medications since 10/08. He noticed that tonight she was having epigastric abdominal discomfort and dry heaves which he has seen when she has narcotic withdrawal in the past. He gave her OxyContin 40 mg at 1500, 40 mg at 1700 and 40 mg at 2000 on 10/11. He gave her Restoril and trazodone at 2200. He saw her at 23:30 and states she was fine. At midnight he found her unresponsive in the bathroom. EVAC administered Narcan without significant response. Blood glucose is 165. She arrived to the ED being bagged. She was intubated upon arrival. She was initially hypertensive 204/72 and ED physician reported concern for ICH or stroke so CT brain was performed that was negative for acute abnormalities. ED workup included white blood cell count of 16, creatinine 1.58, sodium 134., Lactic acid 2.3. She was administered Zosyn and vancomycin. CT chest abdomen and pelvis were obtained. She had moderate emphysema, evidence of aspiration. No acute intra-abdominal findings. She was placed on propofol for sedation. Her peripheral blood pressure continuously down trended and she became hypotensive with blood pressure in the 60s. Central venous line was placed by Dr. Rowan and she was placed on Levaquin at 5 mcg/m. After the central venous line was placed she was positioned upright and had a bradycardia PEA arrest 4 minutes in duration. She received epinephrine 3, atropine 1 mg IV. Dopamine was added at 5 mcg/min. Postarrest chest x-ray demonstrated satisfactory central venous line position without pneumothorax. Patient is hypothermic with core temp 93.5. Obtain bedside glucose which was 80 and administered half amp of D50. Post arrest lactic acid 1.3. ABG with pH 7.19/ PaCO2 45/PaCO2 525/bicarbonate 17 10/13: Much improved overnight. Warm, well perfused. Extubated and breathing comfortably. Objective Vital Signs Date Time Temp Pulse Resp B/P Pulse Ox O2 Delivery O2 Flow Rate FiO2 10/13/16 06:00 98 10/13/16 04:00 100.8 22 123/58 100 10/12/16 20:26 Nasal Cannula 6.00 10/12/16 12:10 36 Intake and Output 10/12/16 10/12/16 10/13/16 08:00 16:00 00:00 Intake Total 2274 ml 1166 ml Output Total 1600 ml 2500 ml Balance 674 ml -1334 ml Result Diagram: 10/13/16 0500 10/13/16 0500 Objective Remarks GENERAL: Elderly female. SKIN: Warm and dry. HEAD: Atraumatic. Normocephalic. EYES: Pupils 2 mm and reactive.. No scleral icterus. No injection or drainage. ENT: No nasal bleeding or discharge. Mucous membranes dry NECK: Trachea midline. CARDIOVASCULAR: NL S1S2, regular, sinus tach on the monitor with no murmurs rubs or gallops. RESPIRATORY: Few rhonchi, good air movement. GASTROINTESTINAL: Abdomen soft, non-tender, nondistended. Bowel sounds active. MUSCULOSKELETAL: Extremities without clubbing, cyanosis, or edema. No obvious deformities. Well perfused. NEUROLOGICAL: Alert, anxious, spontaneously moves all extremities without focal deficit. Follows commands. A/P Assessment and Plan NEURO: Chronic pain Opiate overdose (OxyContin) Acute encephalopathy Migraine headaches Off propofol for sedation RASS 1 Hypothermia - rewarming with warm IVF, warming blanket. Hold trazodone , Soma, Restoril Resolved. RESP: Acute respiratory failure COPD Emphysema Tobacco abuse Aspiration pneumonia Bronchiectasis Extubated DuoNeb every [address] chest noncontrasted Emphysema with bilateral scattered infiltrates Resume Advair when extubated CV: PEA cardiac arrest 4 minutes in ED (appears secondary to hypotension, hypovolemia, dynamic hyperinflation) Septic shock secondary to aspiration pneumonia History of hypertension Serial lactic acid Patient received 2 L normal saline bolus in the emergency department. She still appears clinically dry. Bolus LR. D5 LR at 125 L per hour Levophed to maintain mean atrial pressure greater than 65 Hold enalapril 20 mg by mouth twice a day, start carvedilol 6.25 mg 2 times a day Continue aspirin 81 daily GI: GERD Diverticulosis Gastroparesis Hiatal hernia Nothing by mouth. OGT tube to low intermittent wall suction. Resume Creon when taking po. FEN/RENAL: Acute kidney injury Dehydration Baseline creatinine is ~0.[address] Monitor intake and output. Monitor electrolytes. Replace electrolytes as indicated d/c D5 LR 125 L per hour. ID: UTI History of recurrent UTI Aspiration pneumonia Received Zosyn and vancomycin in the emergency department which will continue due to septic shock She was prescribed cefazolin 3 weeks ago for a UTI but has not taken her antibiotics in 3 days. Prior to that she was on Macrobid. Methenamine hippurate for prevention. HEME: Myeloproliferative disorder Monitor CBC Hydrea 500 mg by mouth daily ENDO: SSI prn PROPH: SCDs. Heparin 5000 units subcutaneous every 12 hours for DVT prophylaxis. Protonix 40 mg IV daily for stress ulcer prophylaxis. ACCESS: R subclavian CVL placed per ED physician 10/12 #2. Patient's very distraught over giving her oxycontin resulting in her critical illness. Full code Saúl Barbosa MD October 13, 2016 07:07
[2016-10-13] MEDS: POTASSIUM CHLOR 40 MEQ PREMIX 100 ML IV-CENTRAL PRN ×2 (07:37→21:50)
[2016-10-13] MEDS: CHLORHEXIDINE 0.12% (ORAL KIT) 15 ML CUP MT SCH ×2 (08:00→20:00)
[2016-10-13] MEDS: LACTOBACILLUS ACIDOPHILUS TAB PO SCH ×3 (08:00→16:16)
[2016-10-13] MEDS: SODIUM CHLORIDE 0.9% FLUSH 10 ML FLUSH SCH ×2 (08:01→20:12)
[2016-10-13] MEDS: metroNIDAZOLE 500 MG INJ 100 ML IV SCH ×2 (08:22→16:17)
[2016-10-13] MEDS: HEPARIN SODIUM - SQ 10,000 UNITS/ML VIAL SQ SCH ×2 (08:24→20:12)
[2016-10-13] MEDS: ASPIRIN EC 81 MG TABEC PO SCH (08:32)
[2016-10-13] MEDS: HYDROXYUREA 500 MG CAP PO SCH (08:32)
[2016-10-13] MEDS: LIPASE/PROTEASE/AMYLASE (6,000/19,000/30,000) CAP PO SCH (08:37)
[2016-10-13] MEDS: PANTOPRAZOLE SODIUM 40 MG VIAL IV SCH (08:37)
[2016-10-13] MEDS: DOCUSATE SODIUM 50 MG/SENNA 8.6 MG TAB PO SCH ×2 (08:37→20:13)
[2016-10-13 08:40] LABS: BANDS 5 % (0-6); METAMYELOCYTES 1 % (0-1); PLATELET ESTIMATE SMEAR LOW (NORMAL); PLATELET MORPHOLOGY NORMAL (NORMAL); POLYS (SEG NEUTROPHILS) 67 % (16-70); SCAN/DIFF FINAL DIFF MANUAL; WBC DIFF SAMPLE 100
[2016-10-13] MEDS: SODIUM PHOSPHATE INJ 30 MMOL in SODIUM CHLOR 0.9% 250 ML INJ 240 ML IV PRN (08:48)
[2016-10-13] MEDS: MAGNESIUM SULFATE INJ 4 GM in SODIUM CHLORIDE 0.9% INJ 92 ML IV PRN (09:41)
[2016-10-13] MEDS: HYDROmorphone HCL PF 1 MG/ML VIAL IV PUSH PRN ×2 (11:08→16:33)
--- NOTE | 2016-10-13 11:49 | EC ---
Study Study Date:10/13/2016 STUDY CONCLUSIONS SUMMARY - Left ventricle: The cavity size was normal. Wall thickness was increased in a pattern of mild LVH. Systolic function was mildly to moderately reduced. The estimated ejection fraction was in the range of 40% to 45%. Hypokinesis of the anteroseptal myocardium. Hypokinesis of the anterior myocardium. Hypokinesis of the apical myocardium. Doppler parameters are consistent with abnormal left ventricular relaxation (grade 1 diastolic dysfunction). - Mitral valve: Mildly calcified annulus. Mildly thickened leaflets, . - Pulmonary arteries: PA peak pressure: 35mm Hg (S). If LV function is below 40, please consider prescribing an ACEI or ARB or document rationale for non-use. PROCEDURE DATA STUDY STATUS: Elective. Procedure: Transthoracic echocardiography. Image quality was suboptimal. Scanning was performed from the parasternal, apical, and subcostal acoustic windows. Study completion: The patient tolerated the procedure well. Transthoracic echocardiography. M-mode, complete 2D, complete spectral Doppler, and color Doppler. Height: Height: 64in. Weight: Weight: 153.7lb. Body mass index: BMI: 26.4kg/m^2. Body surface area: BSA: 1.75m^2. Patient status: Inpatient. CARDIAC ANATOMY LEFT VENTRICLE: The cavity size was normal. Wall thickness was increased in a pattern of mild LVH. Systolic function was mildly to moderately reduced. The estimated ejection fraction was in the range of 40% to 45%. Regional wall motion abnormalities: Hypokinesis of the anteroseptal myocardium. Hypokinesis of the anterior myocardium. Hypokinesis of the apical myocardium. Doppler parameters are consistent with abnormal left ventricular relaxation (grade 1 diastolic dysfunction). AORTIC VALVE: Not well visualized. Trileaflet; moderately thickened, mildly calcified leaflets. Doppler: Transvalvular velocity was within the normal range. There was no stenosis. No regurgitation. Mean gradient: 5mm Hg (S). Peak gradient: 11mm Hg (S). AORTA: Aortic root: The aortic root was normal in size. MITRAL VALVE: Mildly calcified annulus. Mildly thickened leaflets, . Doppler: Transvalvular velocity was within the normal range. There was no evidence for stenosis. Trace regurgitation. LEFT ATRIUM: The atrium was normal in size. RIGHT VENTRICLE: The cavity size was normal. Wall thickness was normal. PULMONIC VALVE: Poorly visualized. Doppler: Transvalvular velocity was within the normal range. There was no evidence for stenosis. No regurgitation. TRICUSPID VALVE: Poorly visualized. Structurally normal valve. Doppler: Transvalvular velocity was within the normal range. Trace regurgitation. PULMONARY ARTERY: The main pulmonary artery was normal-sized. Systolic pressure was within the normal range. RIGHT ATRIUM: The atrium was normal in size. PERICARDIUM: There was no pericardial effusion. SYSTEMIC VEINS: Inferior vena cava: Not well visualized. Patient weight: 153.7lb _Ejection fraction:_ 65-75% _Fractional shortening:_ 32% up to 5Kg 5-11.5Kg 11.6-22.9Kg 23-45Kg 45-57Kg Aortic Root 7-13 <17 13-22 17-27 17-27 LA diam 6-13 <23 24-38 33-47 37-40 RVID 10-17 7-15 7-15 7-18 8-17 LVIDd 12-22 <32 24-38 33-47 37-40 LVPW 2-4 3-6 5-7 6-8 7-8 IVS 2-4 3-6 5-7 6-8 7-8 BASIC MEASUREMENTS ADULT NORMAL Left ventricle LV internal dimension, ED, chordal level, *33 mm 43-52 PLAX LV internal dimension, ES, chordal level, 23.3 mm 23-38 PLAX Fractional shortening, chordal level, PLAX *29 % >29 LV posterior wall thickness, ED 11.6 mm IVS/LVPW ratio, ED 1 <1.3 Ventricular septum Septal thickness, ED 11.6 mm Aortic valve Leaflet separation 16 mm 15-26 Aorta Root diameter, ED 25 mm Left atrium Anterior-posterior dimension 22 mm Anterior-posterior dimension index 1.26 cm/m^2 <2.2 BASIC MEASUREMENTS ADULT NORMAL Aortic valve Leaflet separation 16 mm 15-26 DOPPLER MEASUREMENTS ADULT NORMAL Main pulmonary artery Pressure, S *35 mm Hg =30 Aortic valve Peak velocity, S 165 cm/s Mean velocity, S 104 cm/s VTI, S 24.7 cm Mean gradient, S 5 mm Hg Peak gradient, S 11 mm Hg Mitral valve Peak E-wave velocity 63.6 cm/s Peak A-wave velocity 103 cm/s Deceleration time *53 ms 150-230 Peak E/A ratio 0.6 Tricuspid valve Regurgitant peak velocity 270 cm/s Peak RV-RA gradient, S 29 mm Hg Maximal regurgitant velocity 270 cm/s Systemic veins Estimated CVP 10 mm Hg Right ventricle RV pressure, S *39 mm Hg <30 Pulmonic valve Peak velocity, S 95.5 cm/s LEGEND: Mean values are shown as u=mean value. Asterisk (*) torre values outside specified normal range. Prepared and signed by Yovanny Zeng [id number]
--- NOTE | 2016-10-13 17:07 | PD.TRANSFR ---
Transfer Summary Admission Date October 12, 2016 at 02:47 Transfer Date: October 14, 2016 Admitting Diagnosis acute respiratory failure, unresponsive, sepsis, UTI Diagnoses: Significant Findings Pyuria. CXR with small areas of aspiration. Transfer Summary/Subjective 66 y/o presented early 10/12 with hypothermia and hypotension, suspected UTI and septic shock. Intubated in ED, subsequently arrested requiring brief CPR ( probably due to hypovolemia). Alert soon after and extubated about 12 hours later (after rewarming and fluid resuscitation). Placed on antibiotics for probable sepsis, cultures not finalized yet. Her states that her pain medication has recently been increased and he says she fell asleep before calling EMS. Clearly she is over medicated chronically. Objective Vital Signs Date Time Temp Pulse Resp B/P Pulse Ox O2 Delivery O2 Flow Rate FiO2 10/13/16 16:00 102 10/13/16 16:00 99.7 17 130/71 99 10/13/16 09:29 Nasal Cannula 4.00 10/12/16 12:10 36 Intake and Output 10/12/16 10/12/16 10/13/16 08:00 16:00 00:00 Intake Total 2274 ml 1166 ml Output Total 1600 ml 2500 ml Balance 674 ml -1334 ml Result Diagram: 10/13/16 0500 10/13/16 0500 Objective Remarks GENERAL: Elderly female. SKIN: Warm and dry. HEAD: Atraumatic. Normocephalic. EYES: Pupils 2 mm and reactive.. No scleral icterus. No injection or drainage. ENT: No nasal bleeding or discharge. Mucous membranes dry NECK: Trachea midline. CARDIOVASCULAR: NL S1S2, regular, sinus tach on the monitor with no murmurs rubs or gallops. RESPIRATORY: Few rhonchi, good air movement. GASTROINTESTINAL: Abdomen soft, non-tender, nondistended. Bowel sounds active. MUSCULOSKELETAL: Extremities without clubbing, cyanosis, or edema. No obvious deformities. Well perfused. NEUROLOGICAL: Alert, anxious, spontaneously moves all extremities without focal deficit. Follows commands. A/P Assessment and Plan NEURO: Chronic pain Opiate overdose (OxyContin) Acute encephalopathy Migraine headaches Off propofol for sedation RASS 1 Hypothermia - rewarming with warm IVF, warming blanket. Hold trazodone , Soma, Restoril Resolved. RESP: Acute respiratory failure COPD Emphysema Tobacco abuse Aspiration pneumonia Bronchiectasis Extubated DuoNeb every [address] chest noncontrasted Emphysema with bilateral scattered infiltrates Resume Advair when extubated CV: PEA cardiac arrest 4 minutes in ED (appears secondary to hypotension, hypovolemia, dynamic hyperinflation) Septic shock secondary to aspiration pneumonia History of hypertension Serial lactic acid Patient received 2 L normal saline bolus in the emergency department. She still appears clinically dry. Bolus LR. D5 LR at 125 L per hour Levophed to maintain mean atrial pressure greater than 65 Hold enalapril 20 mg by mouth twice a day, start carvedilol 6.25 mg 2 times a day Continue aspirin 81 daily GI: GERD Diverticulosis Gastroparesis Hiatal hernia Nothing by mouth. OGT tube to low intermittent wall suction. Resume Creon when taking po. FEN/RENAL: Acute kidney injury Dehydration Baseline creatinine is ~0.[address] Monitor intake and output. Monitor electrolytes. Replace electrolytes as indicated d/c D5 LR 125 L per hour. ID: UTI History of recurrent UTI Aspiration pneumonia Received Zosyn and vancomycin in the emergency department which will continue due to septic shock She was prescribed cefazolin 3 weeks ago for a UTI but has not taken her antibiotics in 3 days. Prior to that she was on Macrobid. Methenamine hippurate for prevention. HEME: Myeloproliferative disorder Monitor CBC Hydrea 500 mg by mouth daily ENDO: SSI prn PROPH: SCDs. Heparin 5000 units subcutaneous every 12 hours for DVT prophylaxis. Protonix 40 mg IV daily for stress ulcer prophylaxis. ACCESS: R subclavian CVL placed per ED physician 10/12 #2. Patient's very distraught over giving her oxycontin resulting in her critical illness. Full code Saúl Barbosa MD October 13, 2016 17:07
[2016-10-13 19:09] LABS: BICARBONATE 30.5 MEQ/L (21.0-32.0); MAGNESIUM 1.4 MG/DL (1.5-2.5)
[2016-10-13 19:11] LABS: POTASSIUM 2.9 MEQ/L (3.5-5.1)
[2016-10-13] MEDS: VANCOMYCIN 1,000 MG/NS 250 ML IV SCH ×2 (20:12)
[2016-10-13] MEDS ORDERED: CALCIUM GLUCONATE INJ 2 GM in SODIUM CHLORIDE 0.9% INJ 100 ML IV ONE (21:45)
[2016-10-13] MEDS ORDERED: DEXMEDETOMIDINE 200 MCG in NS 50 ML IV SCH (21:45)
[2016-10-13] MEDS: DEXMEDETOMIDINE INJ 1,000 MCG in SODIUM CHLOR 0.9% 250 ML INJ 240 ML IV SCH (21:50)
[2016-10-13] MEDS ORDERED: LABETALOL HCL 100 MG/20 ML VIAL ONE (22:10)
[2016-10-13] MEDS ORDERED: FUROSEMIDE 40 MG/4 ML VIAL ONE (22:10)
[2016-10-13] MEDS ORDERED: FUROSEMIDE 20 MG/2 ML VIAL IV PUSH SCH (22:15)
[2016-10-13] MEDS ORDERED: ETOMIDATE 20 MG/10 ML VIAL ONE (22:16)
[2016-10-13] MEDS: PROPOFOL 1000 MG/100 ML INJ 100 ML IV SCH (22:20)
[2016-10-13] MEDS: NOREPINEPHRINE-DEXTROSE DRIP 250 ML IV SCH (22:45)
[2016-10-13] MEDS ORDERED: ETOMIDATE 20 MG/10 ML VIAL IV PUSH ONE (23:00)
[2016-10-13] MEDS ORDERED: SUCCINYLCHOLINE CHLORIDE 200 MG/10 ML VIAL IV ONE (23:00)
--- NOTE | 2016-10-13 23:13 | RADRPT ---
EXAM DATE/TIME: 10/13/2016 22:38 [facility] COMPARISON: CHEST SINGLE AP, October 13, 2016, 4:13. INDICATIONS : Short of breath. MEDICAL HISTORY : Gastroesophageal reflux disease. Chronic obstructive pulmonary disease. SURGICAL HISTORY : Tubal ligation. Hysterectomy. Cholecystectomy. Cerivcal spine fusion. ENCOUNTER: Subsequent ACUITY: 4 - 6 months PAIN SCORE: 0/10 LOCATION: Bilateral chest FINDINGS: Scattered patchiness is noted within the left mid and lower lung field and the right lung base consis tent with atelectasis and/or pneumonia. Clinical correlation is recommended. The heart is stable. A right subclavian central line has its tip the superior vena cava. There is no pneumothorax. The e ndotracheal tube has its tip 3 cm above the rainer. A nasogastric tube has its tip below the diaphra gm. CONCLUSION: 1. Scattered patchiness within the left mid and lower lung field and right lung base consistent with atelectasis and/or pneumonia. Clinical correlation is recommended. 2. Multiple tubes and lines are in good positions. Brennan See MD on October 13, 2016 at 22:59 Board Certified Radiologist. This report was verified electronically.
[2016-10-14] VITALS (20 sets, daily range): BP systolic 90–143; BP diastolic 52–88; PULSE 76–177; RESP 13–20; TEMP 96.8–101.5; O2SAT 96–100
[2016-10-14] MEDS: ACETAMINOPHEN 1000 MG/100 ML VIAL IV PRN (00:40)
[2016-10-14] MEDS: AZTREONAM INJ 2,000 MG in SODIUM CHLORIDE 0.9% INJ 100 ML IV SCH ×3 (00:40→15:54)
[2016-10-14] MEDS: metroNIDAZOLE 500 MG INJ 100 ML IV SCH ×3 (00:41→15:55)
[2016-10-14] MEDS: RESP: ALBUTEROL 2.5 MG/IPRATROPIUM 0.5 MG NEB (SCH) INH ×6 (01:07→19:41)
[2016-10-14] MEDS: POTASSIUM CHLOR 40 MEQ PREMIX 100 ML IV-CENTRAL PRN (01:17)
[2016-10-14] MEDS: DEXTROSE 5%-LACTATED RING INJ 1,000 ML IV SCH ×4 (01:19→23:00)
[2016-10-14 01:46] LABS: BLOOD GAS BASE EXCESS 4.6 mmol/L (-2-2); BLOOD GAS CARBOXYHEMOGLOBIN 1.6 % (0-4); BLOOD GAS HCO3 28 mmol/L (22-26); BLOOD GAS METHEMOGLOBIN 0.8 % (0-2); BLOOD GAS O2 HGB SATURATION 92 % (90-100); BLOOD GAS OXYGEN CONTENT 15.3 Vol % (12.0-20.0); BLOOD GAS PCO2 37 mmHg (38-42); BLOOD GAS PO2 65 mmHg (61-120); BLOOD GAS TOTAL HGB 11.9 G/DL (12.0-16.0); CRITICAL VALUE NO; OXYGEN DEVICE VENTILATOR; TEMP CORR TO 98.6
[2016-10-14 01:48] LABS: DRAW SITE LT BRACHIAL; FIO2 40 %; NUMBER OF ARTERIAL PUNCTURES 3; VENT SETTINGS AC/12/500/PEEP5
[2016-10-14 04:05] LABS: BICARBONATE 31.4 MEQ/L (21.0-32.0); MAGNESIUM 1.1 MG/DL (1.5-2.5); POTASSIUM 3.8 MEQ/L (3.5-5.1)
[2016-10-14 04:17] LABS: CALCIUM-PROTEIN CORRECTED 8.1 MG/DL (8.5-10.1)
[2016-10-14] MEDS: CHLORHEXIDINE GLUCONATE 2 % 1 PACK (2 CLOTHS) TOP SCH (05:12)
--- NOTE | 2016-10-14 06:31 | HHI.CCPN ---
Subjective Remarks/Hospital Course 66 yo WF with PMH of COPD, hypertension, chronic pain on long-term opiates, pancreatitis who presents to [facility] emergency department due to unresponsiveness. Her is at bedside and states that she had been nauseous and therefore refused to take her narcotic medications since 10/08. He noticed that tonight she was having epigastric abdominal discomfort and dry heaves which he has seen when she has narcotic withdrawal in the past. He gave her OxyContin 40 mg at 1500, 40 mg at 1700 and 40 mg at 2000 on 10/11. He gave her Restoril and trazodone at 2200. He saw her at 23:30 and states she was fine. At midnight he found her unresponsive in the bathroom. EVAC administered Narcan without significant response. Blood glucose is 165. She arrived to the ED being bagged. She was intubated upon arrival. She was initially hypertensive 204/72 and ED physician reported concern for ICH or stroke so CT brain was performed that was negative for acute abnormalities. ED workup included white blood cell count of 16, creatinine 1.58, sodium 134., Lactic acid 2.3. She was administered Zosyn and vancomycin. CT chest abdomen and pelvis were obtained. She had moderate emphysema, evidence of aspiration. No acute intra-abdominal findings. She was placed on propofol for sedation. Her peripheral blood pressure continuously down trended and she became hypotensive with blood pressure in the 60s. Central venous line was placed by Dr. Rowan and she was placed on Levaquin at 5 mcg/m. After the central venous line was placed she was positioned upright and had a bradycardia PEA arrest 4 minutes in duration. She received epinephrine 3, atropine 1 mg IV. Dopamine was added at 5 mcg/min. Postarrest chest x-ray demonstrated satisfactory central venous line position without pneumothorax. Patient is hypothermic with core temp 93.5. Obtain bedside glucose which was 80 and administered half amp of D50. Post arrest lactic acid 1.3. ABG with pH 7.19/ PaCO2 45/PaCO2 525/bicarbonate 17 10/13: Much improved overnight. Warm, well perfused. Extubated and breathing comfortably. 11/14: Fevere, hypoxemia last night. Intubated again. Cancel [facility] transfer, will notiffy hospitalist nurse. Objective Vital Signs Date Time Temp Pulse Resp B/P Pulse Ox O2 Delivery O2 Flow Rate FiO2 10/14/16 04:19 100 40 10/14/16 04:00 99.3 91 16 102/59 10/13/16 20:32 Nasal Cannula 3.00 Intake and Output 10/13/16 10/13/16 10/14/16 08:00 16:00 00:00 Intake Total 918 ml 1699 ml 1514 ml Output Total 1800 ml 2450 ml 1850 ml Balance -882 ml -751 ml -336 ml Result Diagram: 10/13/16 0500 10/14/16 0317 Other Results Laboratory Tests Test 10/14/16 00:44 Blood Gas Puncture Site LT BRACHIAL Blood Gas Patient Temperature 98.6 Blood Gas HCO3 28 mmol/L (22-26) Blood Gas Base Excess 4.6 mmol/L (-2-2) Blood Gas Oxygen Saturation 92 % (90-100) Arterial Blood pH 7.49 (7.380-7.420) Arterial Blood Partial 37 mmHg (38-42) Pressure CO2 Arterial Blood Partial 65 mmHg Pressure O2 (61-120) Arterial Blood Oxygen Content 15.3 Vol % (12.0-20.0) Arterial Blood 1.6 % (0-4) Carboxyhemoglobin Arterial Blood Methemoglobin 0.8 % (0-2) Blood Gas Hemoglobin 11.9 G/DL (12.0-16.0) Oxygen Delivery Device VENTILATOR Blood Gas Ventilator Setting AC/12/500/PEEP5 Blood Gas Inspired Oxygen 40 % Objective Remarks GENERAL: Elderly female. SKIN: Warm and dry. HEAD: Atraumatic. Normocephalic. EYES: Pupils 3 mm and reactive.. ENT: No nasal bleeding or discharge. Mucous membranes dry NECK: Trachea midline. Orally intubated. CARDIOVASCULAR: NL S1S2, regular, sinus tach on the monitor with no murmurs rubs or gallops. RESPIRATORY: Few rhonchi, good air movement. GASTROINTESTINAL: Abdomen soft, non-tender, nondistended. Bowel sounds active. MUSCULOSKELETAL: Extremities without clubbing, cyanosis, or edema. No obvious deformities. Well perfused. NEUROLOGICAL: Sedated, spontaneously moves all extremities without focal deficit. Follows commands. A/P Assessment and Plan NEURO: Chronic pain Opiate overdose (OxyContin) Acute encephalopathy Migraine headaches Off propofol for sedation RASS 1 Hypothermia - rewarming with warm IVF, warming blanket. Hold trazodone , Soma, Restoril Resolved. RESP: Acute respiratory failure COPD Emphysema Tobacco abuse Aspiration pneumonia Bronchiectasis Extubated DuoNeb every [address] chest noncontrasted Emphysema with bilateral scattered infiltrates Resume Advair when extubated Re-intubated for hypoxemia 10/13. CV: PEA cardiac arrest 4 minutes in ED (appears secondary to hypotension, hypovolemia, dynamic hyperinflation) Septic shock secondary to aspiration pneumonia History of hypertension Serial lactic acid Patient received 2 L normal saline bolus in the emergency department. She still appears clinically dry. Bolus LR. D5 LR at 125 L per hour Levophed to maintain mean atrial pressure greater than 65 Hold enalapril 20 mg by mouth twice a day, start carvedilol 6.25 mg 2 times a day Continue aspirin 81 daily GI: GERD Diverticulosis Gastroparesis Hiatal hernia Nothing by mouth. OGT tube to low intermittent wall suction. Resume Creon when taking po. FEN/RENAL: Acute kidney injury Dehydration Baseline creatinine is ~0.[address] Monitor intake and output. Monitor electrolytes. Replace electrolytes as indicated d/c D5 LR 125 L per hour. ID: UTI History of recurrent UTI Aspiration pneumonia Received Zosyn and vancomycin in the emergency department which will continue due to septic shock She was prescribed cefazolin 3 weeks ago for a UTI but has not taken her antibiotics in 3 days. Prior to that she was on Macrobid. Methenamine hippurate for prevention. HEME: Myeloproliferative disorder Monitor CBC Hydrea 500 mg by mouth daily ENDO: SSI prn PROPH: SCDs. Heparin 5000 units subcutaneous every 12 hours for DVT prophylaxis. Protonix 40 mg IV daily for stress ulcer prophylaxis. ACCESS: R subclavian CVL placed per ED physician 10/12 #3. Full code Overall impression: Deteriorating clinical condition and now critically ill requiring mechanical ventilation. Critical care 38 mins Saúl Barbosa MD October 14, 2016 06:31
[2016-10-14 07:26] LABS: AUTOMATED NEUTROPHIL # 6.4 TH/MM3 (1.8-7.7); BASOPHIL % 0.5 % (0.0-2.0); EOSINOPHIL % 0.1 % (0.0-4.0); HEMATOCRIT 33.1 % (35.0-46.0); HEMO FLAGS DIFF FINAL; LYMPH % 28.2 % (9.0-44.0); LYMPHOCYTE # 2.8 TH/MM3 (1.0-4.8); MEAN CELL VOLUME 103.3 FL (80.0-100.0); MEAN CORPUSCULAR HEMOGLOBIN 34.9 PG (27.0-34.0); MEAN CORPUSCULAR HGB CONC 33.8 % (32.0-36.0); MONO % 7.3 % (0.0-8.0); NEUT % 63.9 % (16.0-70.0); PLATELET COUNT 109 TH/MM3 (150-450); RED CELL DISTRIBUTION WIDTH 13.7 % (11.6-17.2); WHITE BLOOD COUNT 10.1 TH/MM3 (4.0-11.0)
[2016-10-14] MEDS: SODIUM CHLORIDE 0.9% FLUSH 10 ML FLUSH SCH ×2 (08:04→20:24)
[2016-10-14] MEDS: CHLORHEXIDINE 0.12% (ORAL KIT) 15 ML CUP MT SCH ×2 (08:44→20:24)
[2016-10-14] MEDS: NOREPINEPHRINE-DEXTROSE DRIP 250 ML IV SCH (08:44)
[2016-10-14] MEDS: DOCUSATE SODIUM 50 MG/SENNA 8.6 MG TAB PO SCH ×2 (08:45→20:24)
[2016-10-14] MEDS: PANTOPRAZOLE SODIUM 40 MG VIAL IV SCH (08:45)
[2016-10-14] MEDS: LACTOBACILLUS ACIDOPHILUS TAB PO SCH ×3 (08:45→15:55)
[2016-10-14] MEDS: PROPOFOL 1000 MG/100 ML INJ 100 ML IV SCH ×2 (08:45→20:25)
[2016-10-14] MEDS: LIPASE/PROTEASE/AMYLASE (6,000/19,000/30,000) CAP PO SCH (08:45)
[2016-10-14] MEDS: ASPIRIN EC 81 MG TABEC PO SCH (08:45)
[2016-10-14] MEDS: HEPARIN SODIUM - SQ 10,000 UNITS/ML VIAL SQ SCH ×2 (08:46→20:24)
[2016-10-14] MEDS: HYDROXYUREA 500 MG CAP PO SCH (08:48)
[2016-10-14] MEDS: SODIUM PHOSPHATE INJ 30 MMOL in SODIUM CHLOR 0.9% 250 ML INJ 240 ML IV PRN (08:49)
[2016-10-14] MEDS: MAGNESIUM SULFATE INJ 4 GM in SODIUM CHLORIDE 0.9% INJ 92 ML IV PRN (08:49)
--- NOTE | 2016-10-14 09:55 | EKG ---
Date Performed: 10/13/2016 Time Performed: 21:52:30 PTAGE: 66 years EKG: Sinus tachycardia. rSr'(V1) - probable normal variant Possible inferior infarct - age undet ermined Anterior ST elevation, consider acute injury pattern Abnormal ECG NO PREVIOUS TRACING DOCTOR: Efren Orellana Interpretating Date/Time 10/14/2016 09:53:57
[2016-10-14] MEDS: VANCOMYCIN 1,000 MG/NS 250 ML IV SCH ×2 (15:55)
[2016-10-14 19:08] LABS: MAGNESIUM 1.7 MG/DL (1.5-2.5)
[2016-10-15] VITALS (18 sets, daily range): BP systolic 107–140; BP diastolic 58–65; PULSE 81–112; RESP 14–26; TEMP 97.2–98.2; O2SAT 94–100
[2016-10-15] MEDS: metroNIDAZOLE 500 MG INJ 100 ML IV SCH ×4 (00:28→23:31)
[2016-10-15] MEDS: RESP: ALBUTEROL 2.5 MG/IPRATROPIUM 0.5 MG NEB (SCH) INH ×7 (00:49→23:08)
[2016-10-15] MEDS: AZTREONAM INJ 2,000 MG in SODIUM CHLORIDE 0.9% INJ 100 ML IV SCH ×4 (01:32→23:31)
[2016-10-15] MEDS: PROPOFOL 1000 MG/100 ML INJ 100 ML IV SCH ×2 (03:38→05:59)
[2016-10-15] MEDS: CHLORHEXIDINE GLUCONATE 2 % 1 PACK (2 CLOTHS) TOP SCH (04:00)
[2016-10-15 04:38] LABS: AUTOMATED NEUTROPHIL # 3.4 TH/MM3 (1.8-7.7); BASOPHIL % 0.2 % (0.0-2.0); EOSINOPHIL # 0.1 TH/MM3 (0-0.4); EOSINOPHIL % 1.1 % (0.0-4.0); HEMATOCRIT 30.1 % (35.0-46.0); LYMPH % 30.1 % (9.0-44.0); LYMPHOCYTE # 1.6 TH/MM3 (1.0-4.8); MEAN CELL VOLUME 105.5 FL (80.0-100.0); MEAN CORPUSCULAR HEMOGLOBIN 34.5 PG (27.0-34.0); MEAN CORPUSCULAR HGB CONC 32.7 % (32.0-36.0); MONO % 6.5 % (0.0-8.0); NEUT % 62.1 % (16.0-70.0); PLATELET COUNT 80 TH/MM3 (150-450); RED BLOOD COUNT 2.86 MIL/MM3 (4.00-5.30); RED CELL DISTRIBUTION WIDTH 13.4 % (11.6-17.2); WHITE BLOOD COUNT 5.4 TH/MM3 (4.0-11.0)
[2016-10-15 04:41] LABS: HEMO FLAGS DIFF FINAL
[2016-10-15] MEDS ORDERED: SODIUM CHLOR 0.9% 1000 ML INJ 1,000 ML IV ONE ×2 (05:30→22:00)
[2016-10-15 05:36] LABS: BICARBONATE 30.6 MEQ/L (21.0-32.0)
[2016-10-15 05:51] LABS: CALCIUM-PROTEIN CORRECTED 8.2 MG/DL (8.5-10.1)
[2016-10-15] MEDS: POTASSIUM CHLOR 40 MEQ PREMIX 100 ML IV-CENTRAL PRN ×2 (06:38→09:04)
[2016-10-15] MEDS: DEXTROSE 5%-LACTATED RING INJ 1,000 ML IV SCH ×3 (07:00→22:13)
[2016-10-15] MEDS: ASPIRIN EC 81 MG TABEC PO SCH (07:50)
[2016-10-15] MEDS: DOCUSATE SODIUM 50 MG/SENNA 8.6 MG TAB PO SCH ×2 (07:50→20:15)
[2016-10-15] MEDS: PANTOPRAZOLE SODIUM 40 MG VIAL IV SCH (07:50)
[2016-10-15] MEDS: LACTOBACILLUS ACIDOPHILUS TAB PO SCH ×3 (07:50→16:31)
[2016-10-15] MEDS: HEPARIN SODIUM - SQ 10,000 UNITS/ML VIAL SQ SCH ×2 (07:50→20:22)
[2016-10-15] MEDS: LIPASE/PROTEASE/AMYLASE (6,000/19,000/30,000) CAP PO SCH (08:05)
[2016-10-15] MEDS: HYDROXYUREA 500 MG CAP PO SCH (08:07)
[2016-10-15] MEDS: SODIUM CHLORIDE 0.9% FLUSH 10 ML FLUSH SCH ×2 (08:08→20:23)
--- NOTE | 2016-10-15 08:27 | RADRPT ---
EXAM DATE/TIME: 10/15/2016 04:44 [facility] COMPARISON: CHEST SINGLE AP, October 13, 2016, 22:38. INDICATIONS : Shortness of breath. MEDICAL HISTORY : Gastroesophageal reflux disease. Chronic obstructive pulmonary disease. SURGICAL HISTORY : Tubal ligation. Hysterectomy. Cholecystectomy. Cerivcal spine fusion. ENCOUNTER: Subsequent ACUITY: 4 - 6 months PAIN SCORE: Non-responsive. LOCATION: Bilateral chest FINDINGS: Endotracheal tube, nasogastric tube and right clavian central line are stable. Mild perihilar and bas ilar parenchymal opacities are grossly stable. Cardiac contours are unchanged. CONCLUSION: No significant change Mayur Sood MD on October 15, 2016 at 5:58 Board Certified Radiologist. This report was verified electronically.
[2016-10-15] MEDS ORDERED: PHARMACY ORDERED LAB ONE (08:45)
[2016-10-15] MEDS ORDERED: DEXMEDETOMIDINE INJ 200 MCG in SODIUM CHLORIDE 0.9% INJ 50 ML IV SCH (09:00)
--- NOTE | 2016-10-15 09:06 | HHI.CCPN ---
Subjective Remarks/Hospital Course 66 yo WF with PMH of COPD, hypertension, chronic pain on long-term opiates, pancreatitis who presents to [facility] emergency department due to unresponsiveness. Her is at bedside and states that she had been nauseous and therefore refused to take her narcotic medications since 10/08. He noticed that tonight she was having epigastric abdominal discomfort and dry heaves which he has seen when she has narcotic withdrawal in the past. He gave her OxyContin 40 mg at 1500, 40 mg at 1700 and 40 mg at 2000 on 10/11. He gave her Restoril and trazodone at 2200. He saw her at 23:30 and states she was fine. At midnight he found her unresponsive in the bathroom. EVAC administered Narcan without significant response. Blood glucose is 165. She arrived to the ED being bagged. She was intubated upon arrival. She was initially hypertensive 204/72 and ED physician reported concern for ICH or stroke so CT brain was performed that was negative for acute abnormalities. ED workup included white blood cell count of 16, creatinine 1.58, sodium 134., Lactic acid 2.3. She was administered Zosyn and vancomycin. CT chest abdomen and pelvis were obtained. She had moderate emphysema, evidence of aspiration. No acute intra-abdominal findings. She was placed on propofol for sedation. Her peripheral blood pressure continuously down trended and she became hypotensive with blood pressure in the 60s. Central venous line was placed by Dr. Rowan and she was placed on Levaquin at 5 mcg/m. After the central venous line was placed she was positioned upright and had a bradycardia PEA arrest 4 minutes in duration. She received epinephrine 3, atropine 1 mg IV. Dopamine was added at 5 mcg/min. Postarrest chest x-ray demonstrated satisfactory central venous line position without pneumothorax. Patient is hypothermic with core temp 93.5. Obtain bedside glucose which was 80 and administered half amp of D50. Post arrest lactic acid 1.3. ABG with pH 7.19/ PaCO2 45/PaCO2 525/bicarbonate 17 10/13: Much improved overnight. Warm, well perfused. Extubated and breathing comfortably. 11/14: Fevere, hypoxemia last night. Intubated again. Cancel [facility] transfer, will notiffy hospitalist nurse. : No issues overnight, will attempt CPAP trial today Objective Vital Signs Date Time Temp Pulse Resp B/P Pulse Ox O2 Delivery O2 Flow Rate FiO2 10/15/16 08:24 99 40 10/15/16 06:00 86 10/15/16 04:00 97.9 24 126/59 10/14/16 19:00 Mechanical Ventilator Nasal Cannula 10/13/16 20:32 3.00 Intake and Output 10/14/16 10/14/16 10/15/16 08:00 16:00 00:00 Intake Total 1455 ml 1916 ml 1255 ml Output Total 2600 ml 1250 ml 350 ml Balance -1145 ml 666 ml 905 ml Result Diagram: 10/15/16 0403 10/15/16 0403 Other Results Microbiology Date/Time Procedure Status Source Growth 10/12/16 10:45 Gram Stain - Final Complete Sputum Endotracheal 10/12/16 10:45 Sputum Culture - Final Complete Sputum Endotracheal LIGHT GROWTH NORMAL RESPIRATORY CAROL Objective Remarks GENERAL: Elderly female. SKIN: Warm and dry. HEAD: Atraumatic. Normocephalic. EYES: Pupils 3 mm and reactive.. ENT: No nasal bleeding or discharge. Mucous membranes dry NECK: Trachea midline. Orally intubated. CARDIOVASCULAR: NL S1S2, regular, sinus tach on the monitor with no murmurs rubs or gallops. RESPIRATORY: Few rhonchi, good air movement. GASTROINTESTINAL: Abdomen soft, non-tender, nondistended. Bowel sounds active. MUSCULOSKELETAL: Extremities without clubbing, cyanosis, or edema. No obvious deformities. Well perfused. NEUROLOGICAL: Sedated, spontaneously moves all extremities without focal deficit. Follows commands. A/P Assessment and Plan NEURO: Chronic pain Opiate overdose (OxyContin) Acute encephalopathy Migraine headaches Off propofol for sedation Start Precedex when necessary RASS goal 1 Hypothermia - rewarming with warming blanket when necessary Hold trazodone , Soma, Restoril Resolved. RESP: Acute respiratory failure COPD Emphysema Tobacco abuse Aspiration pneumonia Bronchiectasis Extubated 08/13 a.m. DuoNeb every [address] chest noncontrasted Emphysema with bilateral scattered infiltrates Resume Advair when extubated Re-intubated for hypoxemia 10/13. CV: PEA cardiac arrest 4 minutes in ED (appears secondary to hypotension, hypovolemia, dynamic hyperinflation) Septic shock secondary to aspiration pneumonia History of hypertension Serial lactic acid Patient received 2 L normal saline bolus in the emergency department. She still appears clinically dry. Bolus LR. D5 LR at 125 L per hour Levophed at 5 mics today to maintain mean atrial pressure greater than 65 Hold enalapril 20 mg by mouth twice a day, start carvedilol 6.25 mg 2 times a day Continue aspirin 81 daily GI: GERD Diverticulosis Gastroparesis Hiatal hernia Nothing by mouth. OGT tube to low intermittent wall suction. Resume Creon when taking po. FEN/RENAL: Acute kidney injury Dehydration Baseline creatinine is ~0.[address] Monitor intake and output. Monitor electrolytes. Replace electrolytes as indicated d/c D5 LR 125 L per hour. ID: UTI History of recurrent UTI Aspiration pneumonia Received Zosyn and vancomycin in the emergency department which will continue due to septic shock She was prescribed cefazolin 3 weeks ago for a UTI but has not taken her antibiotics in 3 days. Prior to that she was on Macrobid. Methenamine hippurate for prevention. HEME: Myeloproliferative disorder Monitor CBC Hydrea 500 mg by mouth daily ENDO: SSI prn PROPH: SCDs. Heparin 5000 units subcutaneous every 12 hours for DVT prophylaxis. Protonix 40 mg IV daily for stress ulcer prophylaxis. ACCESS: R subclavian CVL placed per ED physician 10/12 #3. Full code Overall impression: Deteriorating clinical condition and now critically ill requiring mechanical ventilation. Critical Care: The total critical care time was 35 minutes. Time to perform other separately billable procedures was not included in the critical care time. Julius Collazo MD October 15, 2016 09:06
[2016-10-15] MEDS: CHLORHEXIDINE 0.12% (ORAL KIT) 15 ML CUP MT SCH ×2 (09:12→20:10)
[2016-10-15] MEDS: DEXMEDETOMIDINE INJ 1,000 MCG in SODIUM CHLOR 0.9% 250 ML INJ 240 ML IV SCH (10:13)
[2016-10-15] MEDS: ONDANSETRON HCL 4 MG/2 ML VIAL IV PRN ×3 (10:29→21:58)
[2016-10-15] MEDS: VANCOMYCIN 1,000 MG/NS 250 ML IV SCH ×2 (12:32)
[2016-10-16] VITALS (14 sets, daily range): BP systolic 117–189; BP diastolic 55–89; PULSE 80–127; RESP 16–26; TEMP 96.3–100; O2SAT 95–100
[2016-10-16] MEDS: VANCOMYCIN 1,000 MG/NS 250 ML IV SCH ×4 (01:06→13:04)
[2016-10-16] MEDS: ONDANSETRON HCL 4 MG/2 ML VIAL IV PRN ×4 (03:25→20:12)
[2016-10-16] MEDS: RESP: ALBUTEROL 2.5 MG/IPRATROPIUM 0.5 MG NEB (SCH) INH ×2 (03:35→08:23)
[2016-10-16] MEDS: CHLORHEXIDINE GLUCONATE 2 % 1 PACK (2 CLOTHS) TOP SCH (04:00)
--- NOTE | 2016-10-16 05:31 | PD.TRANSFR ---
Transfer Summary Admission Date October 12, 2016 at 02:47 Admitting Diagnosis acute respiratory failure, unresponsive, sepsis, UTI Diagnoses: Transfer Summary/Subjective 66 yo WF with PMH of COPD, hypertension, chronic pain on long-term opiates, pancreatitis who presents to [facility] emergency department due to unresponsiveness. Her is at bedside and states that she had been nauseous and therefore refused to take her narcotic medications since 10/08. He noticed that tonight she was having epigastric abdominal discomfort and dry heaves which he has seen when she has narcotic withdrawal in the past. He gave her OxyContin 40 mg at 1500, 40 mg at 1700 and 40 mg at 2000 on 10/11. He gave her Restoril and trazodone at 2200. He saw her at 23:30 and states she was fine. At midnight he found her unresponsive in the bathroom. EVAC administered Narcan without significant response. Blood glucose is 165. She arrived to the ED being bagged. She was intubated upon arrival. She was initially hypertensive 204/72 and ED physician reported concern for ICH or stroke so CT brain was performed that was negative for acute abnormalities. ED workup included white blood cell count of 16, creatinine 1.58, sodium 134., Lactic acid 2.3. She was administered Zosyn and vancomycin. CT chest abdomen and pelvis were obtained. She had moderate emphysema, evidence of aspiration. No acute intra-abdominal findings. She was placed on propofol for sedation. Her peripheral blood pressure continuously down trended and she became hypotensive with blood pressure in the 60s. Central venous line was placed by Dr. Rowan and she was placed on Levaquin at 5 mcg/m. After the central venous line was placed she was positioned upright and had a bradycardia PEA arrest 4 minutes in duration. She received epinephrine 3, atropine 1 mg IV. Dopamine was added at 5 mcg/min. Postarrest chest x-ray demonstrated satisfactory central venous line position without pneumothorax. Patient is hypothermic with core temp 93.5. Obtain bedside glucose which was 80 and administered half amp of D50. Post arrest lactic acid 1.3. ABG with pH 7.19/ PaCO2 45/PaCO2 525/bicarbonate 17 10/13: Much improved overnight. Warm, well perfused. Extubated and breathing comfortably. 11/14: Fevere, hypoxemia last night. Intubated again. Cancel [facility] transfer, will notiffy hospitalist nurse. : No issues overnight, comfortable during CPAP trial and successfully extubated Objective Vital Signs Date Time Temp Pulse Resp B/P Pulse Ox O2 Delivery O2 Flow Rate FiO2 10/16/16 04:00 90 10/16/16 04:00 98.4 22 134/60 100 10/15/16 21:35 Nasal Cannula 4 36 Intake and Output 10/15/16 10/15/16 10/16/16 08:00 16:00 00:00 Intake Total 2139 ml 1772 ml 2278 ml Output Total 150 ml 700 ml 250 ml Balance 1989 ml 1072 ml 2028 ml Result Diagram: 10/15/16 04010/15/16 040 Objective Remarks GENERAL: Elderly female. SKIN: Warm and dry. HEAD: Atraumatic. Normocephalic. EYES: Pupils 3 mm and reactive.. ENT: No nasal bleeding or discharge. Mucous membranes dry NECK: Trachea midline. Orally intubated. CARDIOVASCULAR: NL S1S2, regular, sinus tach on the monitor with no murmurs rubs or gallops. RESPIRATORY: Few rhonchi, good air movement. GASTROINTESTINAL: Abdomen soft, non-tender, nondistended. Bowel sounds active. MUSCULOSKELETAL: Extremities without clubbing, cyanosis, or edema. No obvious deformities. Well perfused. NEUROLOGICAL: Sedated, spontaneously moves all extremities without focal deficit. Follows commands. A/P Assessment and Plan NEURO: Chronic pain Opiate overdose (OxyContin) Acute encephalopathy Migraine headaches Off propofol for sedation Wean off Precedex RASS goal 0 Hypothermia - rewarmed with warming blanket Hold trazodone , Soma, Restoril Resolved. RESP: Acute respiratory failure COPD Emphysema Tobacco abuse Aspiration pneumonia Bronchiectasis Extubated 08/13 a.m. Re-intubated for hypoxemia 10/13 night Extubated 10/15 DuoN[address] every [address] chest noncontrasted Emphysema with bilateral scattered infiltrates Resume Advair when extubated CV: PEA cardiac arrest 4 minutes in ED (appears secondary to hypotension, hypovolemia, dynamic hyperinflation) Septic shock secondary to aspiration pneumonia History of hypertension Serial lactic acid Patient received 2 L normal saline bolus in the emergency department. She still appears clinically dry. Bolus LR. D5 LR at 125 L per hour Levophed at 5 mics today to maintain mean atrial pressure greater than 65 Hold enalapril 20 mg by mouth twice a day, start carvedilol 6.25 mg 2 times a day Continue aspirin 81 daily GI: GERD Diverticulosis Gastroparesis Hiatal hernia Swallow eval today Resume Creon when taking po. FEN/RENAL: Acute kidney injury Dehydration Baseline creatinine is ~0.[address] Monitor intake and output. Monitor electrolytes. Replace electrolytes as indicated D5 LR 125 L per hour Until 100% by mouth ID: UTI History of recurrent UTI Aspiration pneumonia Received Zosyn and vancomycin in the emergency department which will continue due to septic shock She was prescribed cefazolin 3 weeks ago for a UTI but has not taken her antibiotics in 3 days. Prior to that she was on Macrobid. Methenamine hippurate for prevention. HEME: Myeloproliferative disorder Monitor CBC Hydrea 500 mg by mouth daily ENDO: SSI prn PROPH: SCDs. Heparin 5000 units subcutaneous every 12 hours for DVT prophylaxis. Protonix 40 mg IV daily for stress ulcer prophylaxis. ACCESS: R subclavian CVL placed per ED physician 10/12 #3. Full code Overall impression: Extubated yesterday, comfortable on nasal cannula, in no acute distress, medically optimized to downgrade from ICU Level III Julius Collazo MD Oct 16, 2016 05:31 Julius Collazo MD Oct 16, 2016 05:31
[2016-10-16] MEDS: DEXTROSE 5%-LACTATED RING INJ 1,000 ML IV SCH ×2 (06:29→14:12)
[2016-10-16] MEDS: metroNIDAZOLE 500 MG INJ 100 ML IV SCH ×3 (06:29→22:47)
[2016-10-16] MEDS: CHLORHEXIDINE 0.12% (ORAL KIT) 15 ML CUP MT SCH ×2 (07:50→19:31)
[2016-10-16] MEDS: HYDROmorphone HCL PF 1 MG/ML VIAL IV PUSH PRN ×2 (07:50→11:20)
[2016-10-16] MEDS: LACTOBACILLUS ACIDOPHILUS TAB PO SCH ×3 (07:51→15:51)
[2016-10-16] MEDS: SODIUM CHLORIDE 0.9% FLUSH 10 ML FLUSH SCH ×2 (07:51→22:41)
[2016-10-16] MEDS: AZTREONAM INJ 2,000 MG in SODIUM CHLORIDE 0.9% INJ 100 ML IV SCH ×2 (07:55→15:40)
[2016-10-16 08:01] LABS: STAT NO
[2016-10-16] MEDS: LIPASE/PROTEASE/AMYLASE (6,000/19,000/30,000) CAP PO SCH (08:56)
[2016-10-16] MEDS: ASPIRIN EC 81 MG TABEC PO SCH (08:56)
[2016-10-16] MEDS: DOCUSATE SODIUM 50 MG/SENNA 8.6 MG TAB PO SCH ×2 (08:58→20:16)
[2016-10-16] MEDS: PANTOPRAZOLE SODIUM 40 MG VIAL IV SCH (08:58)
[2016-10-16] MEDS: HEPARIN SODIUM - SQ 10,000 UNITS/ML VIAL SQ SCH ×2 (08:59→20:19)
[2016-10-16 09:05] LABS: AUTOMATED NEUTROPHIL # 1.9 TH/MM3 (1.8-7.7); BASOPHIL % 1.3 % (0.0-2.0); EOSINOPHIL % 1.3 % (0.0-4.0); LYMPH % 37.3 % (9.0-44.0); LYMPHOCYTE # 1.4 TH/MM3 (1.0-4.8); MEAN CELL VOLUME 106.9 FL (80.0-100.0); MEAN CORPUSCULAR HEMOGLOBIN 34.1 PG (27.0-34.0); MEAN CORPUSCULAR HGB CONC 31.9 % (32.0-36.0); MONO % 8.2 % (0.0-8.0); NEUT % 51.9 % (16.0-70.0); PLATELET COUNT 63 TH/MM3 (150-450); RED BLOOD COUNT 2.99 MIL/MM3 (4.00-5.30); RED CELL DISTRIBUTION WIDTH 13.7 % (11.6-17.2); WHITE BLOOD COUNT 3.7 TH/MM3 (4.0-11.0)
[2016-10-16] MEDS: HYDROXYUREA 500 MG CAP PO SCH (09:07)
[2016-10-16 09:14] LABS: HEMO FLAGS AUTO DIFF
[2016-10-16 09:30] LABS: BICARBONATE 26.7 MEQ/L (21.0-32.0); POTASSIUM 3.6 MEQ/L (3.5-5.1)
[2016-10-16 09:31] LABS: CALCIUM-PROTEIN CORRECTED 8.1 MG/DL (8.5-10.1); TOTAL BILIRUBIN ADULT 0.4 MG/DL (0.2-1.0)
[2016-10-16 09:48] LABS: OVALOCYTES 1+ (NORMAL)
[2016-10-16 09:49] LABS: PLATELET ESTIMATE SMEAR LOW (NORMAL); PLATELET MORPHOLOGY NORMAL (NORMAL); SCAN/DIFF AUTO DIFF CONFIRMED
[2016-10-16] MEDS: LORazepam 2 MG/ML VIAL IV PUSH PRN ×3 (10:20→19:31)
[2016-10-16] MEDS: MAGNESIUM SULFATE INJ 4 GM in SODIUM CHLORIDE 0.9% INJ 92 ML IV PRN (11:43)
[2016-10-16] MEDS ORDERED: BISACODYL 10 MG SUPP RECTAL ONE (15:15)
[2016-10-16] MEDS: METOCLOPRAMIDE HCL 10 MG/2 ML VIAL IM SCH ×2 (15:36→22:42)
[2016-10-16] MEDS: RESP: ALBUTEROL 2.5 MG/IPRATROPIUM 0.5 MG NEB (SCH) NEB ×2 (15:42→19:52)
--- NOTE | 2016-10-16 15:55 | HHI.PR ---
Subjective Remarks Follow up visit COPD, HTN, Chronic pain on opiates, Chronic Pancreatitis, Respiratory Failure, PEA cardiac arrest x4, S/P extubation. Pt. seen and examined today. Reports abdominal pain started since yesterday, 01/25, achy, dull, non radiating, aggravated by nausea, relieved by pain medications. States she is also nauseous started since she came in. As per staff, patient has been getting zofran and pain medications without relief. Pt. also is on precedex drip. As per RN and charge nurse, attempted to wean off precedex patient very agitated, irritability and with increase HR and BP. Patient also reports SOB/ Dyspnea increased with exertion. On 2L nc, O2 sat 95%.Pt. otherwise denies chest pain, palpitations, headaches, dizziness, fevers, chills , dysuria. Objective Vitals Vital Signs Date Time Temp Pulse Resp B/P Pulse Ox O2 Delivery O2 Flow Rate FiO2 10/16/16 14:00 92 10/16/16 12:00 100.0 127 22 182/89 100 10/16/16 12:00 120 10/16/16 11:50 20 10/16/16 10:00 106 10/16/16 08:25 97 Nasal Cannula 2.00 10/16/16 08:00 99.2 112 22 147/75 100 10/16/16 08:00 110 10/16/16 07:00 99 Nasal Cannula 4.00 10/16/16 06:00 92 10/16/16 04:00 90 10/16/16 04:00 98.4 86 22 134/60 100 10/16/16 02:00 80 10/16/16 00:00 96.3 86 22 117/55 100 10/16/16 00:00 86 10/15/16 22:00 92 10/15/16 21:35 100 Nasal Cannula 4 36 10/15/16 20:49 100 40 10/15/16 20:00 40 10/15/16 20:00 97.5 90 16 133/62 100 10/15/16 20:00 90 10/15/16 19:00 100 Mechanical Ventilator 40 10/15/16 18:00 85 10/15/16 16:00 89 10/15/16 16:00 40 10/15/16 16:00 97.9 89 18 137/59 100 I/O 10/15/16 10/15/16 10/15/16 10/16/16 10/16/16 10/16/16 07:00 15:00 23:00 07:00 15:00 23:00 Intake Total 2139 ml 1772 ml 2278 ml 1461 ml 1740 ml Output Total 150 ml 700 ml 250 ml 850 ml 1200 ml Balance 1989 ml 1072 ml 2028 ml 611 ml 540 ml Intake Oral 240 ml IV Total 2139 ml 1772 ml 2278 ml 1461 ml 1500 ml Output Urine Total 150 ml 700 ml 250 ml 850 ml 1200 ml Gastric Drainage Total 0 ml # Bowel Movements 3 0 0 1 Result Diagram: 10/16/16 0839 10/16/16 0839 Imaging Last Impressions Chest X-Ray 10/15/16 0500 Signed Impressions: Service Date/Time: Saturday, October 15, 2016 04:44 - CONCLUSION: No significant change Mayur Sood MD Head CT 10/12/16 0145 Signed Impressions: Service Date/Time: Wednesday, October 12, 2016 02:33 - CONCLUSION: 1. No acute intracranial abnormalities. Cortical atrophic changes. Dm Cantrell MD Chest CT 10/12/16 0000 Signed Impressions: Service Date/Time: Wednesday, October 12, 2016 02:35 - CONCLUSION: 1. Moderate emphysema. 2. Endotracheal tube and nasogastric tube in satisfactory position. 3. Scattered airspace disease in the lungs with peribronchial thickening, mild bronchiectasis and bronchiolectasis with distal mucoid plugging. Primary differential diagnosis is chronic atypical mycobacterial infection or repeated aspiration. Dm Cantrell MD Abdomen/Pelvis CT 10/12/16 0000 Signed Impressions: Service Date/Time: Wednesday, October 12, 2016 02:35 - CONCLUSION: 1. No acute findings within the abdomen or pelvis. Diverticulosis. Nonobstructing left renal calculi. NG tip in stomach. Elmore catheter in bladder. Dm Cantrell MD Objective Remarks GENERAL: This is a well-developed patient, older than stated age, in no apparent distress. SKIN: Warm and dry. HEENT: Normocephalic. Pupils equal round and reactive. Nose without bleeding. Airway patent. NECK: Trachea midline. No JVD. Supple. CARDIOVASCULAR: Regular rate and rhythm without murmurs, gallops, or rubs. Right subclavian TLC in place RESPIRATORY: Rhonchi bilaterally, diminished bases. 2 L nasal cannula GASTROINTESTINAL: Abdomen soft, non-tender, nondistended. Hypoactive bowel sounds : Elmore draining clear yellow urine MUSCULOSKELETAL: Extremities without clubbing, cyanosis, or edema. NEUROLOGICAL: Drowsy but easily arousable. Confuse. Oriented to person and place. Easily agitated. Moves all extremities. Normal speech. A/P Problem List: (1) Septic shock ICD Code: A41.9 Status: Acute (2) Cardiac arrest ICD Code: I46.9 Status: Acute (3) Sepsis ICD Code: A41.9 Status: Acute (4) Respiratory failure ICD Code: J96.90 Status: Acute (5) COPD (chronic obstructive pulmonary disease) ICD Code: J44.9 Status: Acute (6) Calculus of proximal left ureter ICD Code: N20.1 Status: Acute (7) Abdominal pain ICD Code: R10.9 Status: Acute Assessment and Plan Patient is a 66-year-old white female with primary medical history of COPD, hypertension, chronic pain on long-term opiates, pancreatitis who came in to the hospital secondary to unresponsiveness. As per review of records, was giving patient narcotics secondary to patient having abdominal discomfort and nausea. Patient was intubated upon arrival. Also had episode of PE arrest during the time of admission. Patient was given rescue medications and was managed by critical care. Patient was extubated unsuccessfully 10/13/16, and was reintubated 10/14/16. Finally successfully extubated 10/15/16. Now being transferred to hospitalist team for management. Respiratory Failure, s/p intubation/ extubation COPD with exacerbation, Hx tobacco abuse Aspiration pneumonia - Recent chest x-ray 10/13/16 showed scattered patchiness within the left mid and lower lung field and right lung base consistent with atelectasis and/or pneumonia. Clinical correlation is recommended. Multiple tubes and lines are in good position. - Repeat chest x-ray 10/13/16 showed interval extubation. Minimal bibasilar parenchymal opacities. - Continue with IV antibiotics vancomycin and Flagyl - Continue duo nebs scheduled and when necessary, Budesonide BID, Will resume advair in few days - Discontinue Precedex, attempt to wean off and discontinue today - Pulmonary toileting - Decrease IVF 50ML/hr, lasix 20mg x1 Acute encephalopathy Delirium Chronic pain - Discontinue Precedex. - Start Seroquel tonight 50 mg daily at bedtime, 25 mg daily in a.m. - May use Haldol when necessary Hypertension, benign History - Will monitor BP trend for now. Patient was on levo fed prior - Hold enalapril 20 mg by mouth twice a day, carvedilol 6.25 mg 3 times a day - Continue aspirin 81 daily GERD Diverticulosis Gastroparesis Hiatal hernia - 10/12/[address] showed no acute findings within the abdomen or pelvis. Diverticulosis. Nonobstructing left renal calculi. NG tube in the stomach. Elmore catheter in the bladder. - Resume Creon when taking po. - Continue pantoprazole - Continue Zofran, add Reglan every 8 hours 5 mg - Monitor BM. - IVF D5LR decrease to 50ml/hr Urinary tract infection Recurrent UTI - Currently on Vanco and Flagyl, will follow up urine cultures - UA with small esterase - Elmore in place, DC when off Precedex, bladder training Myeloproliferative disorder - Monitor CBC - Hydrea 500 mg by mouth daily DVT prop heparin Full code Discussed with patient, nursing, Dr. Thurman Attestation Patient seen and examined with CHAPIN Red. The exam, history, and the medical decision-making described in the above note were completed with the assistance of the dictating practitioner. I attest that I had a [id number] encounter with the patient on the same day, and personally performed all of the history, exam, or medical decision making. Discussed case with him thoroughly after seeing the patient, reviewed and agreed with the plan. Please see addendum in History, Physical examination and Plan. See below for any errata/ additional input: Patient complains of mild shortness of breath, and abdominal bloatedness but no vomiting. Has been passing gas, positive bowel movement today. Mild distress Regular rate and rhythm Bilateral rhonchi and occasional crackles, no wheezing Subclavian in place No edema Sleepy but awake, alert, oriented to place - Agree with above, continue antibiotics, decrease fluids, stop Precedex. We' ll give one dose of Lasix, monitor CBC and BMP tomorrow. -delirium, agree with Seroquel, Haldol as needed, keeping the ICU for now. -Repeat chest x-ray tomorrow, if still nauseated, consider checking abdominal x- ray in the morning. Discharge Planning Not ready for discharge Problem Qualifiers (1) Sepsis: Qualified Code: A41.9 - Sepsis, due to unspecified organism (2) Respiratory failure: Qualified Code: J96.01 - Acute respiratory failure with hypoxia and hypercapnia Samantha Muñoz Oct 16, 2016 15:55 Lennox Thurman MD Oct 16, 2016 18:12
--- NOTE | 2016-10-16 16:22 | PD.CONS ---
Consult Service Palliative Care Consult Requested By Dr. Fink Primary Care Physician Unknown Reason for Consultation a. To assist with evaluation and management of symptoms including: Shortness of breath and debility. b. To assist medical decision maker(s) with: better understanding of current medical conditions; weighing benefits/burdens of medical treatment options; making medical treatment decisions. . HPI History of Present Illness Mrs. Robertson is a 66 y/o female with a medical history significant for multiple chronic comorbidities including COPD, hypertension, GERD, myeloproliferative blood disease, pancreatitis and chronic pain on high-dose of opioids. Patient presented to ED on 10/12/16 via EMS after she was found unresponsive on the floor by her . Her reports that patient had been nauseous and therefore refused to take her narcotic medications since 10/08. He noticed that prior to presented to ED, she was having epigastric abdominal discomfort and dry heaves which he has seen when she has narcotic withdrawal in the past. He gave her OxyContin 40 mg at 1500, 40 mg at 1700 and 40 mg at 2000 on 10/11. He gave her Restoril and trazodone at 2200. He saw her at 23:30 and states she was fine. At midnight he found her unresponsive in the bathroom floor. EVAC administered Narcan at the scene without significant response. Patient was intubated upon ED arrival, she was initially hypertensive with BP 204/72. CT of the brain obtained, negative for acute process. CT chest and abdomen and secured, it revealed moderate emphysema and evidence of aspiration. No acute intra-abdominal findings noted. Clinical course was complicated by PEA arrest, CPR was performed with return to spontaneous circulation after 4 minutes. Patient was hypothermic with temperature 93.5. Patient was transferred to ICU for further management. Patient with history of multiple acute hospitalizations and ED visits. This is patient's fourth hospitalization this year, 6 ED visits this year. Patient was intubated and placed on mechanical ventilation in April 2016 secondary to respiratory failure. Patient with chronic abdominal pain and nausea. She has had extensive workup in the past including endoscopy and imaging. Summary of most recent acute hospitalizations and ED visits: * Acute hospitalization from 10/06/16 to 10/07/16 secondary to hyponatremia. GI, Dr. Arevalo consulted for evaluation of nausea vomiting. Patient with history of gastroparesis. Long-term placement in a monitored facility was recommended at that time. * ED visit 09/15/16 secondary to UTI. * ED visit 09/13/16 secondary to urinary retention. * Acute hospitalization for 1916 to 09/10/16 secondary to sepsis, GI bleed and UTI. GI, Dr. Arevalo consulted for evaluation of abdominal pain and heme-positive stools. Head CT negative for acute process. Abdomen and pelvis CT indicating colitis involving the descending and sigmoid colon. Possible pancreatitis. Free fluid around the liver and spleen and within the pelvis of uncertain etiology. * ED visit 08/15/16 secondary to urinary urgency. * ED visit 07/27/16 secondary to chest pain. * ED visit 07/23/16 secondary to chest pain. * ED visit 07/04/16 secondary to hypotension while at home. SBP reported between 160 and 200. * Acute hospitalization 06/01/16 to 06/05/16 secondary to electrolyte disorders, colitis and UTI. Cardiology, Dr. Dubois to evaluate chest pain, symptoms likely GI in origin. GI consulted. Abdomen and pelvis CT showing mild bowel wall thickening in the transverse colon, could represent mild colitis. Patient became encephalopathic, head CT negative for acute process. Neurology, Dr. Singleton consulted. Encephalopathy likely secondary to polypharmacy overdose/ infectious/metabolic in origin. Patient was medically extubated on 10/13/16. However, she required to be reintubated on 10/14/16. She was again medically extubated from 10/15/16. Chest x-ray 10/13/16 showing minimal bibasilar opacities. Repeat chest x-ray 10/14/16 with no changes. Laboratory today WBC 3.7, Hgb 10.2, platelet count 63. Sodium 144, potassium 3.6, BUN/creatinine 6/0.51. Liver enzymes within normal limits. Albumin 2.0. Blood, urine and sputum culture 10/12/16 with no growth thus far. Patient was slightly temperature, T max 100.0. Heart rate in the low 110s. Hypertensive with SBP between 140s to 180s. Tolerating O2 via nasal cannula at 2 L. Speech therapy following, patient of food liquid diet. Patient seen in her room, she was worsening bed in moderate distress secondary to reports of nausea. Patient awake, alert to self, place and situation. Intermittent confusion. Slurred speech but able to communicate. Patient endorsing neck and back pain. Reports feeling nauseous since this morning but no vomiting. Reporting mild dyspnea. No family at bedside. Telephone call to patient's , he will not be returning to hospital until tomorrow morning. agreed to meet with palliative care tomorrow 11/01 at 10 AM. Palliative care to follow-up. . Function/Cognitive Trajectory reports decline in patient's overall medical health over the past several months. This include worsening in mentation and cognitive functions. states she has had difficulty with short term and long-term memory since April 2016. History of multiple falls. Patient ambulating with cane and walker intermittently. Requesting moderate standby assist for ADLs. O2 dependent. Was receiving home health services prior to this acute hospitalization. . Review of Systems ROS Limitations: Poor Historian Constitutional: COMPLAINS OF: Change in appetite, Pain, Generalized weakness Endocrine: DENIES: Heat/cold intolerance Eyes: DENIES: Eye pain Ears, nose, mouth, throat: DENIES: Hearing loss, Throat pain Respiratory: COMPLAINS OF: Cough, Sputum production, Shortness of breath Cardiovascular: COMPLAINS OF: Orthopnea, DENIES: Chest pain, Lower Extremity Edema Gastrointestinal: COMPLAINS OF: Abdominal pain, Nausea, DENIES: Vomiting, Difficulty Swallowing Genitourinary: COMPLAINS OF: Urinary incontinence Musculoskeletal: COMPLAINS OF: Back pain Integumentary: DENIES: Rash Hematologic/Lymphatics: COMPLAINS OF: Bruising Immunologic/Allergic: DENIES: Eczema Neurologic: COMPLAINS OF: Abnormal gait Psychiatric: COMPLAINS OF: Anxiety, Confusion Past Family Social History Coded Allergies: Bactrim (Verified Allergy, Severe, "VOMITING", 10/06/16) Inderal (Verified Allergy, Severe, "CAUSES ASTHMA ATTACK", 10/06/16) Indocin (Verified Allergy, Severe, "NAUSEA", 10/06/16) Penicillin (Verified Allergy, Severe, "HEART FAILURE", 10/06/16) Procardia (Verified Allergy, Severe, "RAPID HEART BEAT", 10/06/16) states does not have a allergy to this medication carlos Grullon 08/15/16 Lanoxin (Verified Adverse Reaction, Unknown, Arrhythmias, 10/06/16) Past Medical History COPD Chronic pain Diverticulosis Pancreatitis of unknown etiology Hyperlipidemia Insomnia Chronic neck and back pain Myeloproliferative disorder Gastroparesis IBS Chronic urinary tract infection History of CVA Hepatitis B History of metabolic encephalopathy Incontinence idiopathic pancreatitis Hiatal hernia Chronic constipation Hypertension GERD Migraine headaches . Past Surgical History Cholecystectomy 1978 Inguinal hernia repair 2 1994 and 1997 Anterior cervical Hysterectomy 1994 Bladder sling 2002 Cervical fusion . Reported Medications Zofran 8 mg by mouth 3 times a day when necessary nausea Enalapril 20 mg by mouth twice a day Trazodone 50 mg by mouth daily at bedtime Lactobacillus 2 caps by mouth 3 times a day Temazepam 30 mg by mouth daily at bedtime Albuterol 1 puff inhaled every 4 hours when necessary Carvedilol 6.25 mill grams by mouth 3 times a day Cholestyramine 4 g by mouth twice a day Soma 350 mg by mouth daily at bedtime Advair 100/51 puff inhaled twice a day Creon 3000/9500/15,000 one by mouth daily Estrace applied vaginally twice a day Oxycodone 15 mg by mouth twice a day when necessary Oxycodone ER 40 mg by mouth 3 times a day Aspirin 81 mg daily Hydroxyurea 500 mg by mouth daily Bethanechol 12.5 mg by mouth half an hour before meals Omeprazole 40 mEq by mouth daily Potassium chloride 40 mEq by mouth daily Treximet 85/500 one tab by mouth every 12 12 hours when necessary migraines Methenamine Hippurate 0.5 mg by mouth twice a day . Current Medications Medications (Trade) Dose Ordered Sig/Diane Route Start Time Stop Time Status Last Admin IV Flush 2 ml 2 ml UNSCH PRN IV FLUSH 10/12/16 01:45 Pharmacy Profile Note 0 ml @ 0 mls/hr UNSCH OTHER 10/12/16 06:45 Aztreonam 2000 mg/ Sodium Chloride 100 ml @ 200 mls/hr Q8H IV 10/12/16 08:00 10/16/16 07:55 Dextrose/Lactated Ringer's 1,000 ml @ 125 mls/hr Q8H IV 10/12/16 07:00 10/16/16 14:12 (Levophed-Dextrose Drip) 250 ml @ 0 mls/hr TITRATE IV 10/12/16 07:00 10/14/16 08:44 (Brethine Inj) 1 mg UNSCH PRN SQ 10/12/16 07:00 (NS Flush) 2 ml UNSCH PRN .XX 10/12/16 07:00 (NS Flush) 2 ml BID .XX 10/12/16 09:00 10/16/16 07:51 (Protonix Inj) 40 mg DAILY IV 10/12/16 09:00 10/16/16 08:58 (Versed Inj) 2 mg Q1H PRN IV 10/12/16 07:00 (Zofran Inj) 4 mg Q6HR PRN IV 10/12/16 08:00 10/16/16 13:30 (Heparin Inj) 5,000 units Q12HR SQ 10/12/16 09:00 10/16/16 08:59 Miscellaneous Information 1 Q361D XX 10/12/16 07:00 10/12/16 07:00 (Chlorhexidine 2% Cloth) 3 pack Taper DAILY@04 TOP 10/13/16 04:00 10/09/17 03:59 10/15/16 04:00 (Chlorhexidine 2% Cloth) 3 pack UNSCH PRN TOP 10/12/16 07:00 (Julianne-Colace) 1 tab BID PO 10/12/16 09:00 10/16/16 08:58 (Milk Of Magnesia Liq) 30 ml Q12HR PRN PO 10/12/16 09:00 (Senokot) 17.2 mg Q12HR PRN PO 10/12/16 09:00 (Dulcolax Supp) 10 mg DAILY PRN RECTAL 10/12/16 09:00 Lactulose 30 ml 30 ml DAILY PRN PO 10/12/16 09:00 (Diprivan 1000 Mg/100ml Inj) 100 ml @ 0 mls/hr TITRATE IV 10/12/16 07:00 10/15/16 05:59 (Peridex 0.12% Liq) 15 ml BID@08,20 MT 10/12/16 08:00 10/16/16 07:50 Midazolam HCl 2 mg 2 mg Q15M PRN IV PUSH 10/12/16 07:30 (Flagyl 500 Mg Inj) 100 ml @ 100 mls/hr Q8H IV 10/12/16 07:30 10/16/16 14:40 (Ecotrin Ec) 81 mg DAILY PO 10/13/16 09:00 10/16/16 08:56 (Hydrea) 500 mg DAILY PO 10/13/16 09:00 10/16/16 09:07 (Lactinex) 1 tab TIDAC PO 10/12/16 12:00 10/16/16 07:51 (Creon 6-19-30) 1 cap DAILY PO 10/13/16 09:00 10/16/16 08:56 (Ventolin Hfa Inh) 1 puff Q4H PRN INH 10/12/16 11:53 (Ativan Inj) 1 mg Q4H PRN IV PUSH 10/12/16 17:15 10/16/16 15:10 (Dilaudid Pf Inj) 0.5 mg Q4H PRN IV PUSH 10/12/16 17:15 10/16/16 11:20 Acetaminophen 650 mg 650 mg Q4H PRN PO 10/12/16 17:15 10/13/16 11:04 Potassium Chloride 100 ml @ 50 mls/hr Q2H PRN IV-CENTRAL 10/13/16 07:00 10/15/16 09:04 (KCl 20 Meq Premix Inj) 100 ml @ 50 mls/hr Q2H PRN IV 10/13/16 07:00 Potassium Bicarb/ Potassium Chloride 50 meq 50 meq UNSCH PRN PO 10/13/16 07:00 Potassium Chloride 100 ml @ 25 mls/hr UNSCH PRN IV-CENTRAL 10/13/16 07:00 Potassium Chloride 100 ml @ 50 mls/hr Q2H PRN IV 10/13/16 07:00 (Magnesium Sulfate Inj/NS Inj) 100 ml @ 50 mls/hr UNSCH PRN IV 10/13/16 07:00 10/16/16 11:43 Magnesium Oxide 800 mg 800 mg UNSCH PRN PO 10/13/16 07:00 (Magnesium Sulfate Inj/NS Inj) 100 ml @ 50 mls/hr UNSCH PRN IV 10/13/16 07:00 Potassium Phosphate 2000 mg 2,000 mg Q4H PRN PO 10/13/16 07:00 (Sodium Phosphate Inj/NS 250 ml Inj) 250 ml @ 42 mls/hr UNSCH PRN IV 10/13/16 07:00 10/14/16 08:49 (K-Phos) 2,000 mg UNSCH PRN PO/TUBE 10/13/16 07:00 Hydroxyzine HCl 25 mg 25 mg Q6H PRN IM 10/13/16 17:00 10/16/16 11:48 (Precedex Inj/NS 250 ml Inj) 250 ml @ 0 mls/hr TITRATE IV 10/13/16 21:45 10/15/16 10:13 Acetaminophen 1000 mg 1,000 mg Q6H PRN IV 10/13/16 23:00 10/14/16 00:40 (Vancomycin Inj/ NS 250 ml Inj) 250 ml @ 250 mls/hr Q12H IV 10/15/16 13:00 10/16/16 13:04 Miscellaneous Information SPECIFIC LAB TO BE [facility]... ONCE ONCE .XX 10/17/16 00:45 10/17/16 00:46 (Dulcolax Supp) 10 mg ONCE ONCE RECTAL 10/16/16 15:15 10/16/16 15:16 UNV (Reglan Inj) 5 mg Q8HR IM 10/16/16 15:15 UNV Family History Mother of heart disease. Father with unknown medical history. Substance Use Tobacco: 2 packs of cigarettes per day for ~35 years with ongoing tobacco abuse. Alcohol: None reported. Prescription med abuse: None reported. Illicits: None reported. . Psychosocial History Patient residing in private home with , daughter, daughter's significant other, adult grandson and granddaughter. Patient is retired. Spiritual/Cultural Factors Protestant sheree. . Health Care Surrogate(s): Pending information. Healthcare proxy is patient's Santhosh Robertson. . Documented care wishes: No living will completed. . Ethical and Legal Issues No living will completed. Physical Exam Vital Signs Date Time Temp Pulse Resp B/P Pulse Ox O2 Delivery O2 Flow Rate FiO2 10/16/16 14:00 92 10/16/16 12:00 100.0 127 22 182/89 100 10/16/16 12:00 120 10/16/16 11:50 20 10/16/16 10:00 106 10/16/16 08:25 97 Nasal Cannula 2.00 10/16/16 08:00 99.2 112 22 147/75 100 10/16/16 08:00 110 10/16/16 07:00 99 Nasal Cannula 4.00 10/16/16 06:00 92 10/16/16 04:00 90 10/16/16 04:00 98.4 86 22 134/60 100 10/16/16 02:00 80 10/16/16 00:00 96.3 86 22 117/55 100 10/16/16 00:00 86 10/15/16 22:00 92 10/15/16 21:35 100 Nasal Cannula 4 36 10/15/16 20:49 100 40 10/15/16 20:00 40 10/15/16 20:00 97.5 90 16 133/62 100 10/15/16 20:00 90 10/15/16 19:00 100 Mechanical Ventilator 40 10/15/16 18:00 85 10/15/16 16:00 89 10/15/16 16:00 40 10/15/16 16:00 97.9 89 18 137/59 100 10/15/16 10/16/16 19:00 07:00 Intake Total 1772 ml 3739 ml Output Total 700 ml 1100 ml Balance 1072 ml 2639 ml IV Total 1772 ml 3739 ml Output Urine Total 700 ml 1100 ml Gastric Drainage Total 0 ml # Bowel Movements 3 0 Exam CONSTITUTIONAL/GENERAL: This is an adequately nourished patient, in moderate distress secondary to nausea. Patient anxious, restless. TUBES/LINES/DRAINS: PIV's, nasal cannula, Elmore catheter, SCDs. SKIN: No jaundice, rashes, or lesions. Ecchymoses on upper extremities. No wounds seen anteriorly. Skin temperature appropriate. Not diaphoretic. HEAD: Atraumatic. Normocephalic. EYES: Pupils equal and round and reactive. Extraocular motions intact. No scleral icterus. No injection or drainage. Fundi not examined. ENT: Hearing grossly normal. Nose without bleeding or purulent drainage. Moist oral mucosa. NECK: Trachea midline. Supple, nontender. CARDIOVASCULAR: Regular rate and rhythm without murmurs, gallops, or rubs. Peripheral pulses symmetric. RESPIRATORY/CHEST: Symmetric, unlabored respiration. Coarse anteriorly with expiratory crackles bilaterally. O2 via nasal cannula 2 L. GASTROINTESTINAL: Abdomen soft, non-tender, nondistended. No guarding. Bowel sounds present. GENITOURINARY: Without palpable bladder distension. Elmore catheter in place. MUSCULOSKELETAL: Extremities without clubbing, cyanosis, or edema. No mottling or clubbing. NEUROLOGICAL: Awake and alert x self, place and situation. Intermittent confusion. Slurred speech. Follows commands.Moves all extremities. PSYCHIATRIC: Anxious, restless. . Diagnostic Tests Laboratory Laboratory Tests Test 10/13/16 10/14/16 10/14/16 10/14/16 18:30 00:44 03:17 07:14 Sodium Level 140 MEQ/L 141 MEQ/L (136-145) (136-145) Potassium Level 2.9 MEQ/L 3.8 MEQ/L (3.5-5.1) (3.5-5.1) Chloride Level 101 MEQ/L 102 MEQ/L (98-107) (98-107) Carbon Dioxide Level 30.5 MEQ/L 31.4 MEQ/L (21.0-32.0) (21.0-32.0) Anion Gap 9 MEQ/L (5-15) 8 MEQ/L (5-15) Blood Urea Nitrogen 8 MG/DL (7-18) 7 MG/DL (7-18) Creatinine 0.63 MG/DL 0.79 MG/DL (0.50-1.00) (0.50-1.00) Estimat Glomerular Filtration 94 ML/MIN (>89) 73 ML/MIN (>89) Rate Random Glucose 101 MG/DL 173 MG/DL (74-106) (74-106) Calcium Level 6.3 MG/DL 7.4 MG/DL (8.5-10.1) (8.5-10.1) Protein Corrected Calcium 7.0 MG/DL 8.1 MG/DL (8.5-10.1) (8.5-10.1) Phosphorus Level 2.3 MG/DL 1.5 MG/DL (2.5-4.9) (2.5-4.9) Magnesium Level 1.4 MG/DL 1.1 MG/DL (1.5-2.5) (1.5-2.5) Total Protein 5.7 GM/DL 5.9 GM/DL (6.4-8.2) (6.4-8.2) Blood Gas Puncture Site LT BRACHIAL Blood Gas Patient Temperature 98.6 Blood Gas HCO3 28 mmol/L (22-26) Blood Gas Base Excess 4.6 mmol/L (-2-2) Blood Gas Oxygen Saturation 92 % (90-100) Arterial Blood pH 7.49 (7.380-7.420) Arterial Blood Partial 37 mmHg (38-42) Pressure CO2 Arterial Blood Partial 65 mmHg Pressure O2 (61-120) Arterial Blood Oxygen Content 15.3 Vol % (12.0-20.0) Arterial Blood 1.6 % (0-4) Carboxyhemoglobin Arterial Blood Methemoglobin 0.8 % (0-2) Blood Gas Hemoglobin 11.9 G/DL (12.0-16.0) Oxygen Delivery Device VENTILATOR Blood Gas Ventilator Setting AC/12/500/PEEP5 Blood Gas Inspired Oxygen 40 % White Blood Count 10.1 TH/MM3 (4.0-11.0) Red Blood Count 3.20 MIL/MM3 (4.00-5.30) Hemoglobin 11.2 GM/DL (11.6-15.3) Hematocrit 33.1 % (35.0-46.0) Mean Corpuscular Volume 103.3 FL (80.0-100.0) Mean Corpuscular Hemoglobin 34.9 PG (27.0-34.0) Mean Corpuscular Hemoglobin 33.8 % Concent (32.0-36.0) Red Cell Distribution Width 13.7 % (11.6-17.2) Platelet Count 109 TH/MM3 (150-450) Mean Platelet Volume 9.2 FL (7.0-11.0) Neutrophils (%) (Auto) 63.9 % (16.0-70.0) Lymphocytes (%) (Auto) 28.2 % (9.0-44.0) Monocytes (%) (Auto) 7.3 % (0.0-8.0) Eosinophils (%) (Auto) 0.1 % (0.0-4.0) Basophils (%) (Auto) 0.5 % (0.0-2.0) Neutrophils # (Auto) 6.4 TH/MM3 (1.8-7.7) Lymphocytes # (Auto) 2.8 TH/MM3 (1.0-4.8) Monocytes # (Auto) 0.7 TH/MM3 (0-0.9) Eosinophils # (Auto) 0.0 TH/MM3 (0-0.4) Basophils # (Auto) 0.0 TH/MM3 (0-0.2) CBC Comment DIFF FINAL Differential Comment Test 10/14/16 10/15/16 10/15/16 10/16/16 18:30 04:03 08:30 08:39 Phosphorus Level 2.4 MG/DL 1.8 MG/DL (2.5-4.9) (2.5-4.9) Magnesium Level 1.7 MG/DL 1.0 MG/DL (1.5-2.5) (1.5-2.5) White Blood Count 5.4 TH/MM3 3.7 TH/MM3 (4.0-11.0) (4.0-11.0) Red Blood Count 2.86 MIL/MM3 2.99 MIL/MM3 (4.00-5.30) (4.00-5.30) Hemoglobin 9.8 GM/DL 10.2 GM/DL (11.6-15.3) (11.6-15.3) Hematocrit 30.1 % 32.0 % (35.0-46.0) (35.0-46.0) Mean Corpuscular Volume 105.5 FL 106.9 FL (80.0-100.0) (80.0-100.0) Mean Corpuscular Hemoglobin 34.5 PG 34.1 PG (27.0-34.0) (27.0-34.0) Mean Corpuscular Hemoglobin 32.7 % 31.9 % Concent (32.0-36.0) (32.0-36.0) Red Cell Distribution Width 13.4 % 13.7 % (11.6-17.2) (11.6-17.2) Platelet Count 80 TH/MM3 63 TH/MM3 (150-450) (150-450) Mean Platelet Volume 9.5 FL 9.7 FL (7.0-11.0) (7.0-11.0) Neutrophils (%) (Auto) 62.1 % 51.9 % (16.0-70.0) (16.0-70.0) Lymphocytes (%) (Auto) 30.1 % 37.3 % (9.0-44.0) (9.0-44.0) Monocytes (%) (Auto) 6.5 % (0.0-8.0) 8.2 % (0.0-8.0) Eosinophils (%) (Auto) 1.1 % (0.0-4.0) 1.3 % (0.0-4.0) Basophils (%) (Auto) 0.2 % (0.0-2.0) 1.3 % (0.0-2.0) Neutrophils # (Auto) 3.4 TH/MM3 1.9 TH/MM3 (1.8-7.7) (1.8-7.7) Lymphocytes # (Auto) 1.6 TH/MM3 1.4 TH/MM3 (1.0-4.8) (1.0-4.8) Monocytes # (Auto) 0.3 TH/MM3 0.3 TH/MM3 (0-0.9) (0-0.9) Eosinophils # (Auto) 0.1 TH/MM3 0.0 TH/MM3 (0-0.4) (0-0.4) Basophils # (Auto) 0.0 TH/MM3 0.0 TH/MM3 (0-0.2) (0-0.2) CBC Comment DIFF FINAL AUTO DIFF Differential Comment AUTO DIFF CONFIRMED Sodium Level 143 MEQ/L 144 MEQ/L (136-145) (136-145) Potassium Level 3.0 MEQ/L 3.6 MEQ/L (3.5-5.1) (3.5-5.1) Chloride Level 106 MEQ/L 111 MEQ/L (98-107) (98-107) Carbon Dioxide Level 30.6 MEQ/L 26.7 MEQ/L (21.0-32.0) (21.0-32.0) Anion Gap 6 MEQ/L (5-15) 6 MEQ/L (5-15) Blood Urea Nitrogen 7 MG/DL (7-18) 6 MG/DL (7-18) Creatinine 0.48 MG/DL 0.51 MG/DL (0.50-1.00) (0.50-1.00) Estimat Glomerular Filtration 129 ML/MIN 120 ML/MIN Rate (>89) (>89) Random Glucose 162 MG/DL 97 MG/DL (74-106) (74-106) Calcium Level 7.1 MG/DL 7.1 MG/DL (8.5-10.1) (8.5-10.1) Protein Corrected Calcium 8.2 MG/DL 8.1 MG/DL (8.5-10.1) (8.5-10.1) Total Protein 5.1 GM/DL 5.3 GM/DL (6.4-8.2) (6.4-8.2) Vancomycin Level Trough 8.2 MCG/ML (5.0-10.0) Platelet Estimate LOW (NORMAL) Platelet Morphology Comment NORMAL (NORMAL) Ovalocytes 1+ (NORMAL) Total Bilirubin 0.4 MG/DL (0.2-1.0) Aspartate Amino Transf 26 U/L (15-37) (AST/SGOT) Alanine Aminotransferase 17 U/L (10-53) (ALT/SGPT) Alkaline Phosphatase 45 U/L (45-117) Albumin 2.0 GM/DL (3.4-5.0) Result Diagram: 10/16/16 0839 10/16/16 0839 Microbiology Microbiology Date/Time Procedure Status Source Growth 10/12/16 10:45 Gram Stain - Final Complete Sputum Endotracheal 10/12/16 10:45 Sputum Culture - Final Complete Sputum Endotracheal LIGHT GROWTH NORMAL RESPIRATORY CAROL 10/12/16 01:50 Urine Culture - Final Complete Urine Catheterized Urine NO GROWTH IN 48 HOURS. 10/12/16 01:50 Aerobic Blood Culture - Preliminary Resulted Blood Peripheral NO GROWTH IN 4 DAYS 10/12/16 01:50 Anaerobic Blood Culture - Preliminary Resulted Blood Peripheral NO GROWTH IN 4 DAYS Imaging Last Impressions Chest X-Ray 10/15/16 0500 Signed Impressions: Service Date/Time: Saturday, October 15, 2016 04:44 - CONCLUSION: No significant change Mayur Sood MD Head CT 10/12/16 0145 Signed Impressions: Service Date/Time: Wednesday, October 12, 2016 02:33 - CONCLUSION: 1. No acute intracranial abnormalities. Cortical atrophic changes. Dm Cantrell MD Chest CT 10/12/16 0000 Signed Impressions: Service Date/Time: Wednesday, October 12, 2016 02:35 - CONCLUSION: 1. Moderate emphysema. 2. Endotracheal tube and nasogastric tube in satisfactory position. 3. Scattered airspace disease in the lungs with peribronchial thickening, mild bronchiectasis and bronchiolectasis with distal mucoid plugging. Primary differential diagnosis is chronic atypical mycobacterial infection or repeated aspiration. Dm Cantrell MD Abdomen/Pelvis CT 10/12/16 0000 Signed Impressions: Service Date/Time: Wednesday, October 12, 2016 02:35 - CONCLUSION: 1. No acute findings within the abdomen or pelvis. Diverticulosis. Nonobstructing left renal calculi. NG tip in stomach. Elmore catheter in bladder. Dm Cantrell MD Procedures * 10/12/16 -endotracheal intubation. * 10/13/16 -medical extubation * 10/14/16 -endotracheal reintubation * 10/15/16 -medical extubation . Patient/Family Conference Present at Family Conference: . Family Conference Time (mins): 15 Family Conference Location: Telephone Issues Discussed: * Palliative care role, purpose, approach * Additional medical, psychosocial, and spiritual history * Patients general health, functional status, and cognitive changes in the months leading up to the current hospitalization * Family's understanding of the current medical problems * Questions answered to the best of my ability * Palliative care contact information provided . Assessment and Plan Disease Oriented Problem List: (1) Respiratory failure (2) Cardiac arrest (3) Sepsis (4) UTI (urinary tract infection) Symptom Scale: (1) Nausea 0-10 Scale: 7 Comment: Multifactorial. Likely secondary to chronic history of gastroparesis. (2) Shortness of breath 0-10 Scale: Unable to quantify Comment: Aspiration pneumonia. Tolerating O2 via nasal cannula. Patient medically extubated on 10/15/16. (3) Debility 0-10 Scale: Unable to quantify Comment: Progressive. Worsened since April 2016. Pertinent Non-Medical Issues Psychosocial: . One daughter. Spiritual: Protestant. Legal: No living will completed. Ethical issues impacting care: No living will completed. . Important Contacts Santhosh Robertson . . Prognosis Mrs. Robertson is a 66-year-old female with multiple chronic issues and recurrent acute hospitalizations and ED visits for the past year. Patient with reported overall failing health since April 2016, worsening mentation and cognitive function. Patient at high risk for further complications, continue decline and given multiple chronic comorbidities, acute events, multiple recent hospitalizations and profound physical deconditioning. . Code Status: Full Code Plan * CODE STATUS: Full code, as per . * HEALTHCARE DECISION-MAKING: Patient with intermittent confusion. Unclear at this time if advance directives have been completed. In the absence of designation of healthcare surrogate, patient's Santhosh Robertson would be healthcare proxy decision maker. * GOALS OF CARE: Pending goals of care discussion with patient and . requesting to meet with palliative care until tomorrow 10/17/16 at 10 AM. Long-term placement has been recommended previously. * SYMPTOMS: = Nausea, chronic. Patient with long history of paraparesis. Currently on Reglan. Zofran available as needed. = Shortness of breath, patient with history of COPD. Acute pneumonia. Medically extubated on . = Debility, secondary to multiple chronic medical issues and multiple recent hospitalizations. Likely require SNF vs long-term placement. * Palliative care contact information has been provided to patient's . Palliative care to meet with patient on 10/17/16 at 10 AM for further clarifications of goals of care. . Time Spent Total Floor Time (mins): 55 (Total time to include review and summarization of medical records including multiple prior hospitalizations and ED visits, physical exam, conversation with patient, telephone conversation with patient's .) Face to Face Time (mins): 20 >50% Counseling/Coord of Care: Yes Thank you for the opportunity to participate in the care of Ms. Robertson. Attestation To help prompt me to consider important information that might be impacting today's encounter and assessment, information from prior notes written by myself or my colleagues may have been "brought forward" into today's note. My signature on this note, however, is an attestation that I personally performed the exam, history, and/or decision-making noted today, and, unless otherwise indicated, the interactions with patient, family, and staff as well as the review of records all occurred today. I also attest that the listed assessment and stated plan reflect my best clinical judgment today based on the combination of historical information, prior notes, and today's exam/ interactions. When time spent is documented, it refers only to time spent today by the signer, or if indicated, combined time spent today by collaborating physician/nurse practitioner. Ashley Chapa Oct 16, 2016 16:19
[2016-10-16] MEDS ORDERED: FUROSEMIDE 20 MG/2 ML VIAL IV PUSH ONE (16:45)
[2016-10-16] MEDS ORDERED: methylPREDNISolone SOD SUCC 40 MG/1 ML VIAL IV PUSH SCH (18:00)
[2016-10-16] MEDS: RESP: BUDESONIDE 0.5 MG/2 ML NEB NEB SCH (19:52)
[2016-10-16] MEDS: QUEtiapine FUMARATE 25 MG TAB PO SCH (20:19)
[2016-10-16] MEDS ORDERED: FUROSEMIDE 40 MG/4 ML VIAL IV PUSH ONE (20:45)
[2016-10-17] VITALS (13 sets, daily range): BP systolic 153–184; BP diastolic 72–91; PULSE 102–126; RESP 19–25; TEMP 98.3–99; O2SAT 95–98
[2016-10-17] MEDS ORDERED: PHARMACY ORDERED LAB ONE (00:45)
[2016-10-17] MEDS: AZTREONAM INJ 2,000 MG in SODIUM CHLORIDE 0.9% INJ 100 ML IV SCH ×2 (00:53→08:45)
[2016-10-17] MEDS: VANCOMYCIN 1,000 MG/NS 250 ML IV SCH ×4 (00:54→13:25)
[2016-10-17] MEDS: HALOPERIDOL LACTATE 5 MG/ML AMP IM PRN (01:49)
[2016-10-17] MEDS: CHLORHEXIDINE GLUCONATE 2 % 1 PACK (2 CLOTHS) TOP SCH (03:29)
[2016-10-17] MEDS: METOCLOPRAMIDE HCL 10 MG/2 ML VIAL IM SCH ×2 (05:05→13:15)
[2016-10-17] MEDS: LORazepam 2 MG/ML VIAL IV PUSH PRN ×2 (05:05→20:38)
--- NOTE | 2016-10-17 05:25 | RADRPT ---
EXAM DATE/TIME: 10/17/2016 04:32 [facility] COMPARISON: CHEST SINGLE AP, October 15, 2016, 4:44. INDICATIONS : Pt having chest pain, shortness of breath, and nausea. MEDICAL HISTORY : Gastroesophageal reflux disease. Chronic obstructive pulmonary disease. SURGICAL HISTORY : Tubal ligation. Hysterectomy. Cholecystectomy. Cervical spine fusion ENCOUNTER: Subsequent ACUITY: 4 - 6 months PAIN SCORE: 7/10 LOCATION: Bilateral chest FINDINGS: The cardiac silhouette is normal in transverse diameter. There is prominence of the central pulmonary vasculature with indistinct vascular margins compatible with vascular congestion but no evidence of overt failure. The findings are improved when compared with the prior exam. A right sided subclavian right vein catheter is in place without pneumothorax with its tip in the superior vena cava. CONCLUSION: 1. Cardiomegaly and findings of vascular congestion without overt failure. The findings are improved when compared with the prior exam. Theodore Hammond MD on October 17, 2016 at 5:23 Board Certified Radiologist. This report was verified electronically.
[2016-10-17] MEDS: CHLORHEXIDINE 0.12% (ORAL KIT) 15 ML CUP MT SCH ×2 (07:51→20:00)
[2016-10-17] MEDS: QUEtiapine FUMARATE 25 MG TAB PO SCH ×2 (07:58→19:59)
[2016-10-17] MEDS: DOCUSATE SODIUM 50 MG/SENNA 8.6 MG TAB PO SCH ×2 (07:58→19:54)
[2016-10-17] MEDS: LACTOBACILLUS ACIDOPHILUS TAB PO SCH ×3 (08:00→21:18)
[2016-10-17] MEDS: RESP: BUDESONIDE 0.5 MG/2 ML NEB NEB SCH ×2 (08:28→19:36)
[2016-10-17] MEDS: RESP: ALBUTEROL 2.5 MG/IPRATROPIUM 0.5 MG NEB (SCH) NEB ×4 (08:29→19:36)
[2016-10-17] MEDS: LIPASE/PROTEASE/AMYLASE (6,000/19,000/30,000) CAP PO SCH (08:37)
[2016-10-17] MEDS: PANTOPRAZOLE SODIUM 40 MG VIAL IV SCH (08:39)
[2016-10-17] MEDS: metroNIDAZOLE 500 MG INJ 100 ML IV SCH (08:46)
[2016-10-17] MEDS: HYDROXYUREA 500 MG CAP PO SCH (08:47)
[2016-10-17] MEDS: SODIUM CHLORIDE 0.9% FLUSH 10 ML FLUSH SCH (08:48)
[2016-10-17] MEDS: HEPARIN SODIUM - SQ 10,000 UNITS/ML VIAL SQ SCH (09:00)
[2016-10-17] MEDS: ASPIRIN EC 81 MG TABEC PO SCH (09:00)
--- NOTE | 2016-10-17 09:39 | HHI.PR ---
Subjective Remarks Paged by the nurse, patient tachycardiac in 120s. Patient is somnolent. Patient received lasix yesterday and her K is low, also mag and phos is low, discussed with the ICU nurse to replace. Will recheck values tonight. Says she doesn't feel palpitations. Had some nausea, however no vomiting. Denies chest pain, sob. Follows commands but wants to go back to sleep and tells me no more physical exam. Patient also noted with watery diarrhea. Will check C diff. Objective Vitals Vital Signs Date Time Temp Pulse Resp B/P Pulse Ox O2 Delivery O2 Flow Rate FiO2 10/17/16 06:00 108 10/17/16 04:00 112 10/17/16 04:00 98.8 112 25 170/82 95 10/17/16 02:00 110 10/17/16 00:00 98.4 102 20 153/74 97 10/17/16 00:00 102 10/16/16 22:00 102 10/16/16 20:00 99.0 104 26 189/85 96 10/16/16 20:00 104 10/16/16 19:53 95 Nasal Cannula 2.00 10/16/16 19:00 96 Nasal Cannula 2.00 10/16/16 18:00 98 10/16/16 16:00 98.1 99 16 131/71 100 10/16/16 16:00 99 10/16/16 14:00 92 10/16/16 12:00 100.0 127 22 182/89 100 10/16/16 12:00 120 10/16/16 11:50 20 10/16/16 10:00 106 I/O 10/16/16 10/16/16 10/16/16 10/17/16 10/17/16 10/17/16 06:59 14:59 22:59 06:59 14:59 22:59 Intake Total 2461 ml 1740 ml 2573 ml 583 ml Output Total 850 ml 1200 ml 2750 ml 2000 ml Balance 1611 ml 540 ml -177 ml -1417 ml Intake Oral 240 ml 360 ml 120 ml IV Total 2461 ml 1500 ml 2213 ml 463 ml Output Urine Total 850 ml 1200 ml 2750 ml 2000 ml # Bowel Movements 0 1 1 4 Result Diagram: 10/16/16 0839 10/17/16 0515 Imaging Last Impressions Chest X-Ray 10/17/16 0600 Signed Impressions: Service Date/Time: Monday, October 17, 2016 04:32 - CONCLUSION: 1. Cardiomegaly and findings of vascular congestion without overt failure. The findings are improved when compared with the prior exam. Theodore Hammond MD Head CT 10/12/16 0145 Signed Impressions: Service Date/Time: Wednesday, October 12, 2016 02:33 - CONCLUSION: 1. No acute intracranial abnormalities. Cortical atrophic changes. Dm Cantrell MD Chest CT 10/12/16 0000 Signed Impressions: Service Date/Time: Wednesday, October 12, 2016 02:35 - CONCLUSION: 1. Moderate emphysema. 2. Endotracheal tube and nasogastric tube in satisfactory position. 3. Scattered airspace disease in the lungs with peribronchial thickening, mild bronchiectasis and bronchiolectasis with distal mucoid plugging. Primary differential diagnosis is chronic atypical mycobacterial infection or repeated aspiration. Dm Cantrell MD Abdomen/Pelvis CT 10/12/16 0000 Signed Impressions: Service Date/Time: Wednesday, October 12, 2016 02:35 - CONCLUSION: 1. No acute findings within the abdomen or pelvis. Diverticulosis. Nonobstructing left renal calculi. NG tip in stomach. Elmore catheter in bladder. Dm Cantrell MD Objective Remarks GENERAL: 66 yo F in bed, appears chronically ill, somnolent, well nourished, well developed. SKIN: Warm and dry. ENT: No nasal bleeding or discharge. Mucous membranes pink and moist. NECK: Trachea midline. No JVD. No meningeal signs. CARDIOVASCULAR: Tachycardic. Regular rate and rhythm. RESPIRATORY: No accessory muscle use. Decreased breath sounds, scattered crackles. GASTROINTESTINAL: Abdomen soft, non-tender, nondistended. MUSCULOSKELETAL: Extremities without clubbing, cyanosis, or edema. No obvious deformities. NEUROLOGICAL: Awake and alert. No obvious cranial nerve deficits. Motor grossly within normal limits. Normal speech. PSYCHIATRIC: Calm, however she is rushing me through physical exam, poor insight and judgment. A/P Problem List: (1) Septic shock ICD Code: A41.9 Status: Acute (2) Cardiac arrest ICD Code: I46.9 Status: Acute (3) Sepsis ICD Code: A41.9 Status: Acute (4) Respiratory failure ICD Code: J96.90 Status: Acute (5) COPD (chronic obstructive pulmonary disease) ICD Code: J44.9 Status: Acute (6) Calculus of proximal left ureter ICD Code: N20.1 Status: Acute (7) Abdominal pain ICD Code: R10.9 Status: Acute Assessment and Plan Patient is a 66-year-old white female with primary medical history of COPD, hypertension, chronic pain on long-term opiates, pancreatitis who came in to the hospital secondary to unresponsiveness. As per review of records, was giving patient narcotics secondary to patient having abdominal discomfort and nausea. Patient was intubated upon arrival. Also had episode of PE arrest during the time of admission. Patient was given rescue medications and was managed by critical care. Patient was extubated unsuccessfully 10/13/16, and was reintubated 10/14/16. Finally successfully extubated 10/15/16. Now being transferred to hospitalist team for management. Respiratory Failure, s/p intubation/ extubation COPD with exacerbation, Hx tobacco abuse Aspiration pneumonia Recent chest x-ray 10/13/16 showed scattered patchiness within the left mid and lower lung field and right lung base consistent with atelectasis and/or pneumonia. Clinical correlation is recommended. Multiple tubes and lines are in good position. Repeat chest x-ray 10/13/16 showed interval extubation. Minimal bibasilar parenchymal opacities. Repeat CXR 10/16 improved Urine cultures negative. Sputum cultures are negative. Blood cultures negative x5 days, DC IV antibiotics vancomycin, aztreonam and Flagyl. Start levaquin IV Continue duo nebs scheduled and when necessary, Budesonide BID, Will resume advair in few days OFF Precedex Pulmonary toileting DC IVF, received lasix 20mg , continue lasix for 3 days starting tomorrow 10/18 Monitor UOP Acute encephalopathy,resolving Delirium Chronic pain Discontinue Precedex. Start Seroquel tonight 50 mg daily at bedtime, 25 mg daily in a.m. May use Haldol when necessary Hypertension, benign Will monitor BP trend for now. Patient was on levo fed prior Hold enalapril 20 mg by mouth twice a day, carvedilol 6.25 mg 3 times a day Continue aspirin 81 daily GERD Diverticulosis Gastroparesis Hiatal hernia Diarrhea. Check C diff. Start lactobacillus. Imodium as need 10/12/[address] showed no acute findings within the abdomen or pelvis. Diverticulosis. Nonobstructing left renal calculi. NG tube in the stomach. Elmore catheter in the bladder. Resume Creon when taking po. Continue pantoprazole Continue Zofran, add Reglan every 8 hours 5 mg Monitor BM. DC IVF Urinary tract infection Recurrent UTI Currently on Vanco and Flagyl, will follow up urine cultures UA with small esterase Elmore in place, DC when off Precedex, bladder training Myeloproliferative disorder Monitor CBC Hydrea 500 mg by mouth daily DVT prop heparin Full code Discussed with patient, ICU nurse Discharge Planning Not ready for discharge Problem Qualifiers (1) Sepsis: Qualified Code: A41.9 - Sepsis, due to unspecified organism (2) Respiratory failure: Qualified Code: J96.01 - Acute respiratory failure with hypoxia and hypercapnia Henny Lee MD Oct 17, 2016 09:39
[2016-10-17] MEDS ORDERED: DILTIAZEM HCL 30 MG TAB PO PRN (09:45)
[2016-10-17] MEDS: ONDANSETRON HCL 4 MG/2 ML VIAL IV PRN ×2 (10:39→17:24)
[2016-10-17] MEDS ORDERED: hydrALAZINE HCL 10 MG TAB PO PRN (11:15)
[2016-10-17] MEDS: DILTIAZEM HCL 30 MG TAB PO SCH ×3 (11:25→22:30)
[2016-10-17] MEDS ORDERED: CALCIUM GLUCONATE INJ 1 GM in SODIUM CHLORIDE 0.9% INJ 100 ML IV ONE (12:00)
--- NOTE | 2016-10-17 12:09 | HHI.HCPN ---
Reason for visit a. To assist with evaluation and management of symptoms including: Shortness of breath and debility. b. To assist medical decision maker(s) with: better understanding of current medical conditions; weighing benefits/burdens of medical treatment options; making medical treatment decisions. . Subjective/Interval History Mrs. Robertson is a 66 y/o female with a medical history significant for multiple chronic comorbidities including COPD, hypertension, GERD, myeloproliferative blood disease, pancreatitis and chronic pain on high-dose of opioids. Patient admitted on 10/12/16 secondary to opioid overdose, respiratory failure. Patient intubated on 10/04/16. PEA arrest x min likely secondary to cardiogenic shock. Extubated on 10/13/16. Reintubated on 10/14/16 and medically extubated on . Patient with a history of multiple acute hospitalizations and ED visits within the past year. Palliative care was consulted at the request of patient' s . Patient seen in her room, she was resting bed in moderate distress secondary to reports of nausea and pain. Patient awake, alert to self and situation. Intermittent confusion. Slurred speech but able to communicate. Patient endorsing neck and back pain. Reports feeling nauseous since yesterday. Reporting mild dyspnea at rest. Patient with episode of tachycardiac this morning with heart rate in the 120s. A febrile, SBP between 170-180. Chest x- ray this morning revealing improved vascular congestion without overt failure. Case discussed with Dr. Lee. Palliative care will continue to follow-up as needed for support. . Family/friend interactions Met with patient's Santhosh Robertson. Lengthy conversation about bedside. Patient and has been for the past 47 years, they have 2 children , one daughter who resides with them in 1 son who lives locally. No advance directives have been completed. In this first visit, reviewed the role of palliative care in advanced illness in regards to symptom management as well as support surrounding goals of care and advance care planning. Patient's tells me that he requested palliative care consultation for asked to assist in facilitating some diagnostic testing that patient has been unable to complete secondary to multiple hospitalizations. As per , patient is to have a heart stress test, lumbar puncture for evaluation of worsening memory/cognition , pacer work-up and endoscopic ultrasound to evaluate for pancreatitis. Reviewed with again the role of palliative care, unable directly order this additional testing as requested. Reviewed with that I will communicate his requests to the attending physician. tells me that although this pending tests have been requested by patient's specialists who she follows as outpatient. Patient's also reported that he is no longer able to care for patient at home secondary to increased needs. He reports feeling overwhelmed, is inquiring regarding rehabilitation versus long- term placement. As per , patient progressive debility since November 2012. Continue to worsen through July 2013 after she was diagnosed with COPD, acutely worsened since March 2016 secondary to septic shock requiring intubation and mechanical ventilation. Patient prior to this hospitalization requiring assistance with all ADLs. Referral sent to case finisher to assist with dispo. inquiring regarding rehabilitation versus long-term placement. . Advance Directives Living Will: Never completed Health Care Surrogate: Never completed Durable Power of Excellence Leader: Never completed Advance Directive Specifics Health Care Surrogate(s): Healthcare proxy is patient's Santhosh Robertson. . Documented care wishes: No living will completed. . Significant change in goals: Full code. Continue full aggressive care. . Objective Vital Signs Date Time Temp Pulse Resp B/P Pulse Ox O2 Delivery O2 Flow Rate FiO2 10/17/16 07:00 98 Nasal Cannula 2.00 10/17/16 06:00 108 10/17/16 04:00 112 10/17/16 04:00 98.8 112 25 170/82 95 10/17/16 02:00 110 10/17/16 00:00 98.4 102 20 153/74 97 10/17/16 00:00 102 10/16/16 22:00 102 10/16/16 20:00 99.0 104 26 189/85 96 10/16/16 20:00 104 10/16/16 19:53 95 Nasal Cannula 2.00 10/16/16 19:00 96 Nasal Cannula 2.00 10/16/16 18:00 98 10/16/16 16:00 98.1 99 16 131/71 100 10/16/16 16:00 99 10/16/16 14:00 92 10/16/16 12:00 100.0 127 22 182/89 100 10/16/16 12:00 120 10/16/16 11:50 20 Intake & Output 10/17/16 10/17/16 06:59 18:59 Intake Total 2316 ml Output Total 3250 ml Balance -934 ml Intake Oral 240 ml IV Total 2076 ml Output Urine Total 3250 ml # Bowel Movements 5 Physical Exam CONSTITUTIONAL/GENERAL: This is an adequately nourished patient, in moderate distress secondary to pain and nausea. Patient anxious, restless. TUBES/LINES/DRAINS: PIV's, nasal cannula, Elmore catheter, SCDs. SKIN: No jaundice, rashes, or lesions. Ecchymoses on upper extremities. No wounds seen anteriorly. Skin temperature appropriate. Not diaphoretic. HEAD: Atraumatic. Normocephalic. EYES: Pupils equal and round and reactive. No scleral icterus. No injection or drainage. ENT: Hearing grossly normal. Nose without bleeding or purulent drainage. Moist oral mucosa. NECK: Trachea midline. Supple, nontender. CARDIOVASCULAR: Tachycardic with heart rate in the 110s. Peripheral pulses symmetric. RESPIRATORY/CHEST: Symmetric, increased work of breathing. Coarse anteriorly. O2 via nasal cannula 2 L. GASTROINTESTINAL: Abdomen soft, non-tender, nondistended. No guarding. Bowel sounds present. GENITOURINARY: Without palpable bladder distension. Elmore catheter in place. MUSCULOSKELETAL: Extremities without clubbing, cyanosis, or edema. No mottling or clubbing. NEUROLOGICAL: Awake and alert x self and situation. Intermittent confusion. Slurred speech. Follows commands.Moves all extremities. PSYCHIATRIC: Anxious, restless. . Diagnostic Tests Laboratory Laboratory Tests Test 10/14/16 10/15/16 10/15/16 10/16/16 18:30 04:03 08:30 08:39 Phosphorus Level 2.4 MG/DL 1.8 MG/DL (2.5-4.9) (2.5-4.9) Magnesium Level 1.7 MG/DL 1.0 MG/DL (1.5-2.5) (1.5-2.5) White Blood Count 5.4 TH/MM3 3.7 TH/MM3 (4.0-11.0) (4.0-11.0) Red Blood Count 2.86 MIL/MM3 2.99 MIL/MM3 (4.00-5.30) (4.00-5.30) Hemoglobin 9.8 GM/DL 10.2 GM/DL (11.6-15.3) (11.6-15.3) Hematocrit 30.1 % 32.0 % (35.0-46.0) (35.0-46.0) Mean Corpuscular Volume 105.5 FL 106.9 FL (80.0-100.0) (80.0-100.0) Mean Corpuscular Hemoglobin 34.5 PG 34.1 PG (27.0-34.0) (27.0-34.0) Mean Corpuscular Hemoglobin 32.7 % 31.9 % Concent (32.0-36.0) (32.0-36.0) Red Cell Distribution Width 13.4 % 13.7 % (11.6-17.2) (11.6-17.2) Platelet Count 80 TH/MM3 63 TH/MM3 (150-450) (150-450) Mean Platelet Volume 9.5 FL 9.7 FL (7.0-11.0) (7.0-11.0) Neutrophils (%) (Auto) 62.1 % 51.9 % (16.0-70.0) (16.0-70.0) Lymphocytes (%) (Auto) 30.1 % 37.3 % (9.0-44.0) (9.0-44.0) Monocytes (%) (Auto) 6.5 % (0.0-8.0) 8.2 % (0.0-8.0) Eosinophils (%) (Auto) 1.1 % (0.0-4.0) 1.3 % (0.0-4.0) Basophils (%) (Auto) 0.2 % (0.0-2.0) 1.3 % (0.0-2.0) Neutrophils # (Auto) 3.4 TH/MM3 1.9 TH/MM3 (1.8-7.7) (1.8-7.7) Lymphocytes # (Auto) 1.6 TH/MM3 1.4 TH/MM3 (1.0-4.8) (1.0-4.8) Monocytes # (Auto) 0.3 TH/MM3 0.3 TH/MM3 (0-0.9) (0-0.9) Eosinophils # (Auto) 0.1 TH/MM3 0.0 TH/MM3 (0-0.4) (0-0.4) Basophils # (Auto) 0.0 TH/MM3 0.0 TH/MM3 (0-0.2) (0-0.2) CBC Comment DIFF FINAL AUTO DIFF Differential Comment AUTO DIFF CONFIRMED Sodium Level 143 MEQ/L 144 MEQ/L (136-145) (136-145) Potassium Level 3.0 MEQ/L 3.6 MEQ/L (3.5-5.1) (3.5-5.1) Chloride Level 106 MEQ/L 111 MEQ/L (98-107) (98-107) Carbon Dioxide Level 30.6 MEQ/L 26.7 MEQ/L (21.0-32.0) (21.0-32.0) Anion Gap 6 MEQ/L (5-15) 6 MEQ/L (5-15) Blood Urea Nitrogen 7 MG/DL (7-18) 6 MG/DL (7-18) Creatinine 0.48 MG/DL 0.51 MG/DL (0.50-1.00) (0.50-1.00) Estimat Glomerular Filtration 129 ML/MIN 120 ML/MIN Rate (>89) (>89) Random Glucose 162 MG/DL 97 MG/DL (74-106) (74-106) Calcium Level 7.1 MG/DL 7.1 MG/DL (8.5-10.1) (8.5-10.1) Protein Corrected Calcium 8.2 MG/DL 8.1 MG/DL (8.5-10.1) (8.5-10.1) Total Protein 5.1 GM/DL 5.3 GM/DL (6.4-8.2) (6.4-8.2) Vancomycin Level Trough 8.2 MCG/ML (5.0-10.0) Platelet Estimate LOW (NORMAL) Platelet Morphology Comment NORMAL (NORMAL) Ovalocytes 1+ (NORMAL) Total Bilirubin 0.4 MG/DL (0.2-1.0) Aspartate Amino Transf 26 U/L (15-37) (AST/SGOT) Alanine Aminotransferase 17 U/L (10-53) (ALT/SGPT) Alkaline Phosphatase 45 U/L (45-117) Albumin 2.0 GM/DL (3.4-5.0) Test 10/17/16 10/17/16 00:40 05:15 Vancomycin Level Trough 15.1 MCG/ML (5.0-10.0) Creatinine 0.51 MG/DL (0.50-1.00) Estimat Glomerular Filtration 120 ML/MIN Rate (>89) Result Diagram: 10/16/16 0839 10/17/16 0515 Imaging Last 24 hours Impressions Chest X-Ray 10/17/16 0600 Signed Impressions: Service Date/Time: Monday, October 17, 2016 04:32 - CONCLUSION: 1. Cardiomegaly and findings of vascular congestion without overt failure. The findings are improved when compared with the prior exam. Theodore Hammond MD Procedures * 10/12/16 -endotracheal intubation. * 10/13/16 -medical extubation * 10/14/16 -endotracheal reintubation * 10/15/16 -medical extubation . Assessment and Plan Disease Oriented Problem List: (1) Respiratory failure (2) Cardiac arrest (3) Sepsis (4) UTI (urinary tract infection) Symptom Scale: (1) Nausea 0-10 Scale: 6 Comment: Multifactorial. Likely secondary to chronic history of gastroparesis. (2) Shortness of breath 0-10 Scale: 3 Comment: Aspiration pneumonia. Tolerating O2 via nasal cannula. Patient medically extubated on 10/15/16. (3) Debility 0-10 Scale: Unable to quantify Comment: Progressive. Worsened since April 2016. Pertinent Non-Medical Issues Psychosocial: . One daughter. Spiritual: Adventism. Legal: No living will completed. Ethical issues impacting care: No living will completed. . Important Contacts Santhosh Robertson . . Prognosis Mrs. Robertson is a 66-year-old female with multiple chronic issues and recurrent acute hospitalizations and ED visits for the past year. Patient with reported overall failing health since April 2016, worsening mentation and cognitive function. Patient at high risk for further complications, continue decline and given multiple chronic comorbidities, acute events, multiple recent hospitalizations and profound physical deconditioning. . Code Status: Full Code Plan * CODE STATUS: Full code. Confirmed with . * HEALTHCARE DECISION-MAKING: Patient with intermittent confusion, unable to participate in medical decision-making at this time. No advance directives completed. [place] law, patient's Santhosh Robertson would be healthcare proxy decision maker. * GOALS OF CARE: electing to continue aggressive medical management to include CPR, intubation and mechanical ventilation if medically indicated. Concern about 's poor insight into patient's multitude of medical issues and worsening clinical decline as evidenced by multiple recent acute hospitalizations at both [facility] and [facility] as well as multiple ED visits within the past year. Patient with progressive functional and cognitive decline, acutely worsen since March 2016. She is now dependent on others for ADLs. Reviewed with that patient is at high risk for continued decline, further complications and given her multiple comorbidities, multiple recent hospitalizations and profound physical deconditioning. reports feeling overwhelmed, inquiring regarding rehabilitation versus long-term placement. community case manager referral sent. Patient 's verbalized not been interested in hospice, previously consulted while at [facility]. * Patient's tells me that he requested palliative care consultation to ask for assistance in facilitating some diagnostic testing that patient has been unable to complete secondary to multiple hospitalizations. As per , patient is to have a heart stress test, lumbar puncture for evaluation of worsening memory/cognition,cardiac pacer work-up and endoscopic ultrasound to evaluate for pancreatitis. Reviewed with the role of palliative care, unable directly order this diagnostic testing as requested. Reviewed with that I will communicate his requests to attending physician, Dr. Lee. * SYMPTOMS: = Nausea, chronic. Patient with long history of paraparesis. Currently on Reglan. Zofran available as needed. = Shortness of breath, patient with history of COPD. Acute pneumonia. Medically extubated on . = Debility, secondary to multiple chronic medical issues and multiple recent hospitalizations. Likely require SNF vs long-term placement. * Case discussed with Dr. Lee. * Palliative care contact information has been provided to patient's . * Palliative care will continue to follow-up as needed for further clarifications of goals of care as patient's clinical condition continues to evolve. . Time Spent Total Floor Time (mins): 50 (Total time to include review medical records, physical exam, bedside goals of care discussion with patient's and case discussion with Dr. Lee.) Face to Face Time (mins): 38 >50% Counseling/Coord of Care: Yes Attestation To help prompt me to consider important information that might be impacting today's encounter and assessment, information from prior notes written by myself or my colleagues may have been "brought forward" into today's note. My signature on this note, however, is an attestation that I personally performed the exam, history, and/or decision-making noted today, and, unless otherwise indicated, the interactions with patient, family, and staff as well as the review of records all occurred today. I also attest that the listed assessment and stated plan reflect my best clinical judgment today based on the combination of historical information, prior notes, and today's exam/ interactions. When time spent is documented, it refers only to time spent today by the signer, or if indicated, combined time spent today by collaborating physician/nurse practitioner. Ashley Chapa Oct 17, 2016 12:08
[2016-10-17 12:40] LABS: ALKALINE PHOSPHATASE 50 U/L (45-117); ALT (GPT) 16 U/L (10-53); ANION GAP 9 MEQ/L (5-15); AST (GOT) 19 U/L (15-37); BICARBONATE 28.8 MEQ/L (21.0-32.0); BLOOD UREA NITROGEN 7 MG/DL (7-18); CHLORIDE 108 MEQ/L (98-107); GLOMERULAR FILTRATION RATE 110 ML/MIN (>89); MAGNESIUM 1.4 MG/DL (1.5-2.5); SODIUM (NA) 146 MEQ/L (136-145); TOTAL BILIRUBIN ADULT 0.5 MG/DL (0.2-1.0)
[2016-10-17 12:53] LABS: POTASSIUM 2.8 MEQ/L (3.5-5.1)
[2016-10-17] MEDS: POTASSIUM CHLOR 40 MEQ PREMIX 100 ML IV-CENTRAL PRN ×2 (13:25→15:33)
[2016-10-17] MEDS: SODIUM PHOSPHATE INJ 30 MMOL in SODIUM CHLOR 0.9% 250 ML INJ 240 ML IV PRN (14:56)
[2016-10-17] MEDS: MAGNESIUM SULFATE INJ 2 GM in SODIUM CHLORIDE 0.9% INJ 96 ML IV PRN (14:56)
[2016-10-17] MEDS: LEVOFLOXACIN 750 MG PREMIX INJ 150 ML IV SCH (15:34)
[2016-10-17] MEDS: HYDROmorphone HCL PF 1 MG/ML VIAL IV PUSH PRN ×2 (18:02→22:31)
--- NOTE | 2016-10-17 18:17 | MB ---
cc: ESTELLE PEARSON M.D., ZAFAR MD WOODARD,CRYS BERYR D.O., M.D. DATE OF CONSULTATION: 10/17/2016. REASON FOR CONSULTATION: Thrombocytopenia. CHIEF COMPLAINT: "Please help me get out of here". The patient herself denies acute complaints. She wants me to help her get out of bed and out of the hospital. HISTORY OF PRESENT ILLNESS: Ms. Robertson is a 66-year-old female who is a rather poor historian at this time, most of the history has been obtained from her over the telephone and from the electronic medical record. Per the medical records and her , the patient was found unconscious in her bathroom on the night of admission. She was noted to be in hypoxic respiratory failure and was intubated shortly thereafter. She is now extubated. The patient's reports that Ms. Robertson is on morphine at a dose of 40 milligrams every six hours, she takes four doses a day for management of chronic pain. Per her , the patient had been out to eat and developed a GI upset including nausea and vomiting the day of admission. Because she was so nauseated, she missed her opioid pain medications and developed severe pain. The patient's also thought she was going into opioid withdrawal. He therefore gave her three doses of morphine 40 milligrams over a period of six hours, he also gave her something to help her sleep. Per the patient's later that night he found her unresponsive on the bathroom floor. EMS was called in and the patient was treated with Narcan which seemed not to help much. She was brought into the emergency room and almost immediately was intubated for airway protection and for over-sedation. She is now extubated and is awake and alert. The oncology service has been asked to see the patient for evaluation of thrombocytopenia. In addition to thrombocytopenia, she does have microcytic anemia as well as some leukopenia as well. The patient's tells me Ms. Robertson has a history of myeloproliferative disease ("she makes too many white blood cells), and has been under the treatment of Dr. Carlos with hydroxyurea 500 milligrams daily. She has been on this dosing for two or three years now. The patient's cannot recall whether or not she has had a bone marrow biopsy. I do not have records from her primary computer aided design technician / oncologist for review at this time. PAST MEDICAL HISTORY: 1. Progressive memory loss and confusion of unknown etiology. 2. Ongoing tobaccoism. 3. COPD. 4. Gastroparesis. 5. Previous history of colitis. 6. Pancreatitis (of unknown origin). 7. Cardiac arrhythmia. 8. Myeloproliferative disorder. 9. Urinary incontinence. 10. Chronic pain. PAST SURGICAL HISTORY: 1. Multiple hernia repair surgeries in the abdomen. 2. Surgical vertebral body fusion. FAMILY HISTORY: I could not reliably obtain. The patient does tell me her parents are living and they live in the [facility]. SOCIAL HISTORY: The patient lives at home with her . She is essentially bed-bound. She is a smoker. She has no history of alcohol abuse. ALLERGIES: ALLERGIES TO MULTIPLE DRUGS INCLUDIN. BACTRIM. 2. INDERAL. 3. INDOCIN. 4. LANOXIN. 5. PENICILLIN. 6. PROCARDIA. CURRENT INPATIENT MEDICATIONS: 1. Levofloxacin 750 milligrams IV q. 24 hours. 2. Magnesium sulfate 2 grams IV as needed per replacement protocol. 3. Potassium per replacement protocol. 4. Tylenol 650 milligrams p.o. q. 4 hours as needed for fever. 5. Albuterol nebulizer q. 2 hours as needed for wheezing. 6. DuoNeb one amp every four hours while awake. 7. Dulcolax rectal suppository as needed for severe constipation. 8. Pulmicort 0.5 milligram nebulizer every twelve hours. 9. Diltiazem 30 milligrams p.o. q. 6 hours. 10. Furosemide 20 milligrams IV daily. 11. Haldol 2 milligrams intramuscularly q. 6 hours as needed for agitation. 12. Heparin 5000 units subcutaneous q. 12 hours. 13. Seroquel 25 milligrams p.o. in the morning. 14. Seroquel 50 milligrams p.o. at bedtime. 15. Lorazepam 0.5 milligrams IV q. 4 hours as needed for agitation. 16. Imodium 2 milligrams p.o. q. 4 hours as needed for diarrhea. 17. Lactobacillus one tablet p.o. q. 8 hours. REVIEW OF SYSTEMS: A thirteen-point review of systems was attempted, the following was the history I was able to obtain from the patient. She reports weakness, fatigue, she reports difficulty breathing, she tells me she has hard to expectorate phlegm, she denies hemoptysis, she denies chest pain, she denies nausea, vomiting, diarrhea, hematochezia or melena. She reports chronic neck pain and back pain. She tells me she has difficulty ambulating due to weakness. PHYSICAL EXAMINATION: VITAL SIGNS: Temperature 98.3 degrees Fahrenheit, heart rate 119 beats per minute, blood pressure 160/91, O2 sats 97% on room air, respiratory rate 23, O2 saturations are noted to be 97% on 2 liters nasal cannula. GENERAL APPEARANCE: Ms. Robertson is an elderly female. She appears to be older than her stated age and appears chronically ill. She is sitting up to bed and seems somewhat confused. HEAD, EYES, EARS, NOSE, THROAT: Head is atraumatic and normocephalic. Conjunctivae are mildly pale. The sclerae are anicteric. Extraocular muscles intact. Pupils equal, round and reactive to light and accommodation. ORAL EXAM: No pharyngeal erythema. She does have dry mucous membranes. Poor dental hygiene with multiple teeth missing. NECK EXAMINATION: No palpable cervical or supraclavicular lymphadenopathy. She has a right-sided triple lumen catheter in the subclavicular area. RESPIRATORY EXAMINATION: Coarse central conducted breath sounds. She has decreased bibasilar air entry. Prolonged expiratory phase and scattered rhonchi. CARDIOVASCULAR EXAM: Regular rhythm. Tachycardic. S1, S2. No obvious murmurs, rubs or gallops. ABDOMINAL EXAM: Protuberant, soft, no obvious tenderness, no splenomegaly, no hepatomegaly. LOWER EXTREMITIES: No pretibial edema. MUSCULOSKELETAL: Generally decreased muscle mass and tone. She has 3-4 strength over the upper and lower extremities bilaterally without any focal losses. LABORATORY FINDINGS: Blood work dated 10/16/2016: WBC count 3.7, hemoglobin is 10.2 gm/dl, hematocrit 32%, MCV 107, platelet count 63,000, absolute neutrophil count is 1.9. Absolute lymphocyte count is 1.4. Chemistries: Sodium 146, potassium 2.8, chloride 108, bicarbonate 29, BUN is 7, creatinine 0.55, random glucose is 103, calcium 7.6, phosphorus is 1.9, magnesium is 1.4, total bilirubin 0.5, AST 19, ALT 16, alkaline phosphatase 50, albumin 2.2, total protein 5.9. Serologies: Negative for hepatitis B core and surface antigens, hepatitis B antibody negative, hepatitis C antibody negative. (These were all dated 05/04/2016). ASSESSMENT: Ms. Robertson is a 66-year-old female with a reported history of myeloproliferative neoplasm, she is under the care of Dr. Crys Carlos of [facility]. Per the patient's , Ms. Robertson has been on treatment with a low dose hydroxyurea 500 milligrams once daily for the past two or three years. The tells me that the patient originally presented with elevated WBC counts which led to the diagnosis of myeloproliferative neoplasm. He is not certain when her last bone marrow biopsy was or if she has ever had one. I do not have records available here for review to confirm the diagnosis of myeloproliferative neoplasm. At any rate, the patient seems at this point to have more of cytopenia picture with a pancytopenia. It is entirely possible that she had a previous history of myeloproliferative neoplasm which is usually marked by elevated blood counts such as of polycythemia vera, essential thrombocytosis or chronic myelogenous leukemia / CMML. RECOMMENDATIONS: 1. Thrombocytopenia: At this point, I would recommend discontinuation of her hydroxyurea as that could worsen cytopenias. I have also discontinued heparin at this time. I will obtain a heparin antibody. I would also like to add that the thrombocytopenia is not a new issue as review of her past admissions indicates episodes of thrombocytopenia dating back several years. I will also try to obtain her medical records from her primary computer aided design technician's office as well as a pathology reports, i.e., bone marrows that might be available for review. MD GRZEGORZ Connolly/NILE /4:47 PM /5:55 PM
[2016-10-17 19:05] LABS: BICARBONATE 25.3 MEQ/L (21.0-32.0)
[2016-10-17] MEDS: ACETAMINOPHEN 1000 MG/100 ML VIAL IV PRN (19:59)
[2016-10-17] MEDS ORDERED: LACTOBACILLUS ACIDOPHILUS TAB PO SCH (21:00)
[2016-10-17] MEDS: SODIUM CHLORIDE 0.9% FLUSH 10 ML FLUSH IV FLUSH SCH (21:18)
[2016-10-18] VITALS (12 sets, daily range): BP systolic 109–154; BP diastolic 59–80; PULSE 94–122; RESP 17–25; TEMP 98.3–99; O2SAT 96–100
[2016-10-18] MEDS: ONDANSETRON HCL 4 MG/2 ML VIAL IV PRN ×3 (01:25→19:30)
[2016-10-18] MEDS: LORazepam 2 MG/ML VIAL IV PUSH PRN ×3 (01:26→18:57)
[2016-10-18 03:13] LABS: AUTOMATED NEUTROPHIL # 1.7 TH/MM3 (1.8-7.7); BASOPHIL % 0.4 % (0.0-2.0); HEMATOCRIT 28.6 % (35.0-46.0); LYMPHOCYTE # 1.5 TH/MM3 (1.0-4.8); MEAN CORPUSCULAR HEMOGLOBIN 34.4 PG (27.0-34.0); MEAN CORPUSCULAR HGB CONC 33.1 % (32.0-36.0); MONO % 6.9 % (0.0-8.0); NEUT % 48.7 % (16.0-70.0); PLATELET COUNT 83 TH/MM3 (150-450); RED BLOOD COUNT 2.75 MIL/MM3 (4.00-5.30); RED CELL DISTRIBUTION WIDTH 13.5 % (11.6-17.2); WHITE BLOOD COUNT 3.5 TH/MM3 (4.0-11.0)
[2016-10-18 03:18] LABS: HEMO FLAGS DIFF FINAL
[2016-10-18 03:32] LABS: BICARBONATE 28.8 MEQ/L (21.0-32.0); MAGNESIUM 1.5 MG/DL (1.5-2.5); POTASSIUM 3.5 MEQ/L (3.5-5.1)
[2016-10-18] MEDS: CHLORHEXIDINE GLUCONATE 2 % 1 PACK (2 CLOTHS) TOP SCH (04:00)
[2016-10-18] MEDS: HYDROmorphone HCL PF 1 MG/ML VIAL IV PUSH PRN ×3 (04:15→19:30)
[2016-10-18] MEDS: POTASSIUM CHLOR 20 MEQ PREMIX 100 ML IV PRN ×2 (04:24→05:49)
[2016-10-18] MEDS: LACTOBACILLUS ACIDOPHILUS TAB PO SCH ×3 (05:48→22:13)
[2016-10-18] MEDS: DILTIAZEM HCL 30 MG TAB PO SCH ×3 (05:48→17:33)
[2016-10-18] MEDS: MAGNESIUM SULFATE INJ 2 GM in SODIUM CHLORIDE 0.9% INJ 96 ML IV PRN (07:57)
[2016-10-18] MEDS: RESP: ALBUTEROL 2.5 MG/IPRATROPIUM 0.5 MG NEB (SCH) NEB ×4 (08:00→20:41)
[2016-10-18] MEDS: CHLORHEXIDINE 0.12% (ORAL KIT) 15 ML CUP MT SCH ×2 (08:00→19:32)
[2016-10-18] MEDS: RESP: BUDESONIDE 0.5 MG/2 ML NEB NEB SCH ×2 (08:00→20:41)
[2016-10-18] MEDS: FUROSEMIDE 20 MG/2 ML VIAL IV PUSH SCH (08:11)
[2016-10-18] MEDS: PANTOPRAZOLE SODIUM 40 MG VIAL IV SCH (08:11)
[2016-10-18] MEDS: FONDAPARINUX SODIUM 2.5 MG/0.5 ML SYRINGE SQ SCH (08:12)
[2016-10-18] MEDS: QUEtiapine FUMARATE 25 MG TAB PO SCH ×2 (08:12→19:31)
[2016-10-18] MEDS: LOPERAMIDE HCL 2 MG CAP PO PRN (08:12)
[2016-10-18] MEDS: LIPASE/PROTEASE/AMYLASE (6,000/19,000/30,000) CAP PO SCH (08:26)
[2016-10-18] MEDS: DOCUSATE SODIUM 50 MG/SENNA 8.6 MG TAB PO SCH ×2 (09:00→19:31)
--- NOTE | 2016-10-18 10:29 | HHI.PR ---
Subjective Remarks Feels much better today. She says she wants to go home. No n/v/d/c. She did complain of intermittent chest pain yesterday, says none overnight. Says she is supposed to get a stress test as OP. No chest pain at this time. No palpitations. She is still tachycardic. Per nurse is asking for pain meds. Diarrhea subsided. No fever or chills. No cough. Objective Vitals Vital Signs Date Time Temp Pulse Resp B/P Pulse Ox O2 Delivery O2 Flow Rate FiO2 10/18/16 08:36 98.4 117 24 149/72 98 10/18/16 06:00 96 10/18/16 04:00 94 10/18/16 04:00 99.0 94 20 132/60 100 10/18/16 02:00 102 10/18/16 00:00 98.5 107 17 109/59 99 10/18/16 00:00 107 10/17/16 22:00 115 10/17/16 20:00 96 Nasal Cannula 2.00 10/17/16 20:00 122 10/17/16 20:00 99.0 126 25 157/72 96 10/17/16 19:38 98 Nasal Cannula 2.00 10/17/16 18:38 20 10/17/16 18:00 115 10/17/16 16:00 98.4 113 24 166/75 98 10/17/16 16:00 113 10/17/16 14:00 119 10/17/16 12:00 118 10/17/16 12:00 98.3 118 23 160/91 97 I/O 10/17/16 10/17/16 10/17/16 10/18/16 10/18/16 10/18/16 07:00 15:00 23:00 07:00 15:00 23:00 Intake Total 583 ml 470 ml 645 ml 715 ml Output Total 2000 ml 500 ml 500 ml 725 ml Balance -1417 ml -30 ml 145 ml -10 ml Intake Oral 120 ml 120 ml 120 ml 240 ml IV Total 463 ml 350 ml 525 ml 475 ml Output Urine Total 2000 ml 500 ml 500 ml 725 ml # Bowel Movements 4 7 1 Result Diagram: 10/18/16 0300 10/18/16 0300 Imaging Last Impressions Chest X-Ray 10/17/16 0600 Signed Impressions: Service Date/Time: Monday, October 17, 2016 04:32 - CONCLUSION: 1. Cardiomegaly and findings of vascular congestion without overt failure. The findings are improved when compared with the prior exam. Theodore Hammond MD Head CT 10/12/16 0145 Signed Impressions: Service Date/Time: Wednesday, October 12, 2016 02:33 - CONCLUSION: 1. No acute intracranial abnormalities. Cortical atrophic changes. Dm Cantrell MD Chest CT 10/12/16 0000 Signed Impressions: Service Date/Time: Wednesday, October 12, 2016 02:35 - CONCLUSION: 1. Moderate emphysema. 2. Endotracheal tube and nasogastric tube in satisfactory position. 3. Scattered airspace disease in the lungs with peribronchial thickening, mild bronchiectasis and bronchiolectasis with distal mucoid plugging. Primary differential diagnosis is chronic atypical mycobacterial infection or repeated aspiration. Dm Cantrell MD Abdomen/Pelvis CT 10/12/16 0000 Signed Impressions: Service Date/Time: Wednesday, October 12, 2016 02:35 - CONCLUSION: 1. No acute findings within the abdomen or pelvis. Diverticulosis. Nonobstructing left renal calculi. NG tip in stomach. Elmore catheter in bladder. Dm Cantrell MD Objective Remarks GENERAL: 66 yo F in bed, appears chronically ill, somnolent, well nourished, well developed. SKIN: Warm and dry. ENT: No nasal bleeding or discharge. Mucous membranes pink and moist. NECK: Trachea midline. No JVD. No meningeal signs. CARDIOVASCULAR: Tachycardic. Regular rate and rhythm. RESPIRATORY: No accessory muscle use. Decreased breath sounds, scattered crackles. GASTROINTESTINAL: Abdomen soft, non-tender, nondistended. MUSCULOSKELETAL: Extremities without clubbing, cyanosis, or edema. No obvious deformities. NEUROLOGICAL: Awake and alert. No obvious cranial nerve deficits. Motor grossly within normal limits. Normal speech. PSYCHIATRIC: Calm, however she is rushing me through physical exam, poor insight and judgment. A/P Problem List: (1) Septic shock ICD Code: A41.9 Status: Acute (2) Cardiac arrest ICD Code: I46.9 Status: Acute (3) Sepsis ICD Code: A41.9 Status: Acute (4) Respiratory failure ICD Code: J96.90 Status: Acute (5) COPD (chronic obstructive pulmonary disease) ICD Code: J44.9 Status: Acute (6) Calculus of proximal left ureter ICD Code: N20.1 Status: Acute (7) Abdominal pain ICD Code: R10.9 Status: Acute Assessment and Plan Patient is a 66-year-old white female with primary medical history of COPD, hypertension, chronic pain on long-term opiates, pancreatitis who came in to the hospital secondary to unresponsiveness. As per review of records, was giving patient narcotics secondary to patient having abdominal discomfort and nausea. Patient was intubated upon arrival. Also had episode of PE arrest during the time of admission. Patient was given rescue medications and was managed by critical care. Patient was extubated unsuccessfully 10/13/16, and was reintubated 10/14/16. Finally successfully extubated 10/15/16. Now being transferred to hospitalist team for management. Respiratory Failure, s/p intubation/ extubation, resolving COPD with exacerbation, resolving. Hx tobacco abuse Aspiration pneumonia, improving Recent chest x-ray 10/13/16 showed scattered patchiness within the left mid and lower lung field and right lung base consistent with atelectasis and/or pneumonia. Clinical correlation is recommended. Multiple tubes and lines are in good position. Repeat chest x-ray 10/13/16 showed interval extubation. Minimal bibasilar parenchymal opacities. Repeat CXR 10/16 improved Urine cultures negative. Sputum cultures are negative. Blood cultures negative x5 days, DC IV antibiotics vancomycin, aztreonam and Flagyl. Start levaquin IV Continue duo nebs scheduled and when necessary, Budesonide BID, Will resume advair in few days OFF Precedex Pulmonary toileting DC IVF, received lasix 20mg , continue lasix for 3 days starting tomorrow 10/18 Monitor UOP Acute encephalopathy,resolving Delirium Chronic pain Discontinue Precedex. Start Seroquel tonight 50 mg daily at bedtime, 25 mg daily in a.m. May use Haldol when necessary Hypertension, benign Chest pain, trop 0.02-0.07 patient says she had schedules as OP stress test. EKG no acute ischemic changes. Consult cardiology for evaluation and clearance for DC Will monitor BP trend for now. Patient was on levo fed prior Hold enalapril 20 mg by mouth twice a day, carvedilol 6.25 mg 3 times a day Continue aspirin 81 daily GERD Diverticulosis Gastroparesis Hiatal hernia Diarrhea. Check C diff. Start lactobacillus. Imodium as need 10/12/[address] showed no acute findings within the abdomen or pelvis. Diverticulosis. Nonobstructing left renal calculi. NG tube in the stomach. Elmore catheter in the bladder. Resume Creon when taking po. Continue pantoprazole Continue Zofran, add Reglan every 8 hours 5 mg Monitor BM. DC IVF Urinary tract infection Recurrent UTI Currently on Vanco and Flagyl, will follow up urine cultures UA with small esterase Elmore in place, DC when off Precedex, bladder training Myeloproliferative disorder PLT at 62 , consulted hem/onc. No signs of bleeding. Monitor CBC Hydrea 500 mg by mouth daily Physical deconditioning: PT for eval. DVT prop heparin Full code Discussed with patient, ICU nurse Discharge Planning Improving some, transfer to the floor. PT to evaluate Problem Qualifiers (1) Sepsis: Qualified Code: A41.9 - Sepsis, due to unspecified organism (2) Respiratory failure: Qualified Code: J96.01 - Acute respiratory failure with hypoxia and hypercapnia Henny Lee MD Oct 18, 2016 10:29
--- NOTE | 2016-10-18 12:14 | PD.ONC.PN ---
Subjective Subjective Remarks Afebrile overnight. Pt confused, asking where her mother is. Asking to go home. Per RN no bleeding Objective Data Date Time Temp Pulse Resp B/P Pulse Ox O2 Delivery O2 Flow Rate FiO2 10/18/16 10:40 96 Nasal Cannula 2.00 10/18/16 08:36 98.4 117 24 149/72 98 10/18/16 06:00 96 10/18/16 04:00 94 10/18/16 04:00 99.0 94 20 132/60 100 10/18/16 02:00 102 10/18/16 00:00 98.5 107 17 109/59 99 10/18/16 00:00 107 10/17/16 22:00 115 10/17/16 20:00 96 Nasal Cannula 2.00 10/17/16 20:00 122 10/17/16 20:00 99.0 126 25 157/72 96 10/17/16 19:38 98 Nasal Cannula 2.00 10/17/16 18:38 20 10/17/16 18:00 115 10/17/16 16:00 98.4 113 24 166/75 98 10/17/16 16:00 113 10/17/16 14:00 119 10/18/16 10/18/16 10/18/16 07:00 15:00 23:00 Intake Total 715 ml Output Total 725 ml Balance -10 ml Result Diagram: 10/18/16 0300 10/18/16 0300 Laboratory Results Laboratory Tests Test 10/17/16 10/18/16 10/18/16 17:30 03:00 11:00 Sodium Level 145 MEQ/L 144 MEQ/L Potassium Level 4.0 MEQ/L 3.5 MEQ/L Chloride Level 111 MEQ/L 110 MEQ/L Carbon Dioxide Level 25.3 MEQ/L 28.8 MEQ/L Anion Gap 9 MEQ/L 5 MEQ/L Blood Urea Nitrogen 6 MG/DL 5 MG/DL Creatinine 0.49 MG/DL 0.44 MG/DL Estimat Glomerular Filtration 126 ML/MIN 143 ML/MIN Rate Random Glucose 96 MG/DL 79 MG/DL Calcium Level 8.0 MG/DL 7.5 MG/DL Phosphorus Level 3.2 MG/DL Magnesium Level 2.0 MG/DL 1.5 MG/DL Vitamin B12 Level 842 PG/ML Folate 4.1 NG/ML White Blood Count 3.5 TH/MM3 Red Blood Count 2.75 MIL/MM3 Hemoglobin 9.5 GM/DL Hematocrit 28.6 % Mean Corpuscular Volume 104.0 FL Mean Corpuscular Hemoglobin 34.4 PG Mean Corpuscular Hemoglobin 33.1 % Concent Red Cell Distribution Width 13.5 % Platelet Count 83 TH/MM3 Mean Platelet Volume 9.0 FL Neutrophils (%) (Auto) 48.7 % Lymphocytes (%) (Auto) 43.0 % Monocytes (%) (Auto) 6.9 % Eosinophils (%) (Auto) 1.0 % Basophils (%) (Auto) 0.4 % Neutrophils # (Auto) 1.7 TH/MM3 Lymphocytes # (Auto) 1.5 TH/MM3 Monocytes # (Auto) 0.2 TH/MM3 Eosinophils # (Auto) 0.0 TH/MM3 Basophils # (Auto) 0.0 TH/MM3 CBC Comment DIFF FINAL Differential Comment Troponin I 0.06 NG/ML Imaging Studies Last 48 hours Impressions Chest X-Ray 10/17/16 0600 Signed Impressions: Service Date/Time: Monday, October 17, 2016 04:32 - CONCLUSION: 1. Cardiomegaly and findings of vascular congestion without overt failure. The findings are improved when compared with the prior exam. Theodore Hammond MD Administered Medications Medications (Trade) Dose Ordered Sig/Diane Route PRN Reason Start Time Stop Time Status Last Admin Dose Admin Norepinephrine Bitartrate (Levophed-Dextrose Drip) 250 ml @ 0 mls/hr TITRATE IV 10/12/16 07:00 10/14/16 08:44 Pantoprazole Sodium (Protonix Inj) 40 mg DAILY IV 10/12/16 09:00 10/18/16 08:11 Ondansetron HCl (Zofran Inj) 4 mg Q6HR PRN IV NAUSEA OR VOMITING 10/12/16 08:00 10/18/16 08:27 Miscellaneous Information 1 [id number] XX 10/12/16 07:00 10/12/16 07:00 Chlorhexidine Gluconate (Chlorhexidine 2% Cloth) Taper DAILY@04 TOP 10/13/16 04:00 10/09/17 03:59 10/18/16 04:00 Senna/Docusate Sodium 1 tab 1 tab BID PO 10/12/16 09:00 10/16/16 08:58 Propofol (Diprivan 1000 Mg/100ml Inj) 100 ml @ 0 mls/hr TITRATE IV 10/12/16 07:00 10/15/16 05:59 Chlorhexidine Gluconate (Peridex 0.12% Liq) 15 ml BID@08,20 MT 10/12/16 08:00 10/16/16 19:31 Aspirin (Ecotrin Ec) 81 mg DAILY PO 10/13/16 09:00 Hold 10/16/16 08:56 Amylase/Lipase/ Protease (Creon 11-03-29) 1 cap DAILY PO Digestive Aid 10/13/16 09:00 10/18/16 08:26 Acetaminophen 650 mg 650 mg Q4H PRN PO FEVER 10/12/16 17:15 10/13/16 11:04 Potassium Chloride 100 ml @ 50 mls/hr Q2H PRN IV-CENTRAL For Potassium 2.8 - 3.2 mEq/L 10/13/16 07:00 10/17/16 15:33 Potassium Chloride 100 ml @ 50 mls/hr Q2H PRN IV For Potassium 3.3 - 3.5 mEq/L 10/13/16 07:00 10/18/16 05:49 Magnesium Sulfate 4 gm/Sodium Chloride 100 ml @ 50 mls/hr UNSCH PRN IV For Magnesium 0.9 - 1.1 mg/dL 10/13/16 07:00 10/16/16 11:43 Magnesium Sulfate 2 gm/Sodium Chloride 100 ml @ 50 mls/hr UNSCH PRN IV For Magnesium 1.2 - 1.6 mg/dL 10/13/16 07:00 10/18/16 07:57 Sodium Phosphate/ Sodium Chloride (Sodium Phosphate Inj/NS 250 ml Inj) 250 ml @ 42 mls/hr UNSCH PRN IV For Phosphorus < 2.5 mg/dL 10/13/16 07:00 10/17/16 14:56 Hydroxyzine HCl (Vistaril Inj) 25 mg Q6H PRN IM nausea 10/13/16 17:00 10/16/16 11:48 Acetaminophen (Ofirmev Inj) 1,000 mg Q6H PRN IV TEMP > 101 F 10/13/16 23:00 10/17/16 19:59 Quetiapine Fumarate (SEROquel) 50 mg HS PO 10/16/16 21:00 10/17/16 19:59 Quetiapine Fumarate (SEROquel) 25 mg DAILY PO 10/17/16 09:00 10/18/16 08:12 Haloperidol Lactate (Haldol Inj) 2 mg Q6H PRN IM Agitation 10/16/16 16:00 10/17/16 01:49 Diltiazem HCl (Cardizem) 30 mg Q6HR PO 10/17/16 12:00 10/18/16 05:48 Hydralazine HCl (Apresoline) 10 mg Q6H PRN PO SBP>160, DBP>90 10/17/16 11:15 10/17/16 19:59 Hydromorphone HCl 0.5 mg 0.5 mg Q6H PRN IV PUSH pain 10-2510/17/16 18:00 10/18/16 04:15 Levofloxacin/ Dextrose (Levaquin 750 Mg Premix Inj) 150 ml @ 100 mls/hr Q24H IV 10/17/16 15:00 10/24/16 14:59 10/17/16 15:34 Lorazepam (Ativan Inj) 0.5 mg Q4H PRN IV PUSH severe agitation 10/17/16 17:15 10/18/16 10:48 Furosemide (Lasix Inj) 20 mg DAILY IV PUSH 10/18/16 09:00 10/21/16 08:59 10/18/16 08:11 Loperamide HCl (Imodium) 2 mg UNSCH PRN PO DIARRHEA 10/17/16 16:30 10/18/16 08:12 Sodium Chloride (NS Flush) 2 ml BID IV FLUSH 10/17/16 21:00 10/17/16 21:18 Fondaparinux (Arixtra Inj) 2.5 mg Q24H SQ 10/18/16 09:00 10/18/16 08:12 Objective Remarks GENERAL: Middle aged female lying in bed getting a breathing treatment. SKIN: Warm and dry. HEAD: Normocephalic. EYES: No injection or drainage. NECK: Supple, trachea midline. CARDIOVASCULAR: S1/S2. No murmur noted. RESPIRATORY: Rhonchi throughout. GASTROINTESTINAL: Abdomen soft, non-tender, nondistended. EXTREMITIES: No cyanosis, or edema. NEUROLOGICAL: Confused. Following commands. Assessment/Plan Problem List: (1) Pancreatitis, recurrent Status: Acute Plan: -- Pt c/o R mid abdominal pain. -- Will check enzymes (2) Thrombocytopenia Status: Acute Plan: -- Previously was on Hydroxyurea for myeloproliferative disorder -- HIT panel pending -- Will monitor blood counts Assessment 66 y/o female admitted for respiratory failure after taking pain medications. Plan 1. Monitor blood counts 2. Will check lipase as pt with abdominal pain, hx of recurrent pancreatitis. Kellie Palmer Oct 18, 2016 12:14
[2016-10-18] MEDS: POTASSIUM CHLORIDE 10 MEQ CONTROLLED RELEASE TAB PO SCH (13:18)
[2016-10-18] MEDS: LEVOFLOXACIN 750 MG PREMIX INJ 150 ML IV SCH (14:27)
[2016-10-18] MEDS: SODIUM CHLORIDE 0.9% FLUSH 10 ML FLUSH IV FLUSH SCH ×2 (14:27→19:32)
--- NOTE | 2016-10-18 15:25 | EKG ---
Date Performed: 10/17/2016 Time Performed: 17:07:26 PTAGE: 66 years EKG: Sinus tachycardia Diffuse nonspecific ST-T changes, ischemia is one consideration Since PREVIOUS TRACING 10/13/2016, previous tracing was not of great quality; however, it did show ST elevation in leads V3 and V4. These findings may be due to anterior injury. They are no longe r persent, but there is T-wave inversion that is fairly significant in leads V3-V5. V6 is not interpr etable due to baseline artifact. Clinical correlation is recommended. PREVIOUS TRACIN10/13/2016 21 .52 DOCTOR: Parish Singh Interpretating Date/Time 10/18/2016 15:24:56
--- NOTE | 2016-10-18 15:26 | EKG ---
Date Performed: 10/18/2016 Time Performed: 12:20:37 PTAGE: 66 years EKG: SINUS TACHYCARDIA ST DEVIATION AND MODERATE T-WAVE ABNORMALITY, CONSIDER ANTEROLATERAL ISCH EMIA ABNORMAL ECG Since PREVIOUS TRACING 10/17/2016, no significant change. PREVIOUS TRACIN10/17/2016 17.07 DOCTOR: Parish Singh Interpretating Date/Time 10/18/2016 15:25:38
--- NOTE | 2016-10-18 15:45 | MB ---
cc: SHEMAR,MARKEL FLORES,HEATHER COMBS,IPLAR Pickens M.D. DATE OF CONSULTATION: 10/18/2016 REASON FOR CONSULTATION Abnormal EKG and elevated troponins. HISTORY OF PRESENT ILLNESS The patient is a 66-year-old white female with a very extensive and complicated history. She has chronic pain syndrome and is opioid dependent. Her found her unresponsive on the floor on the 12 of October and EMS was called. The patient was apparently intubated on the field and brought to the emergency room for further care. Upon arrival to the emergency room, she was initially found to be hypertensive with a blood pressure of 200/70. She did require transient CPR secondary to pulseless electrical activity. She was also hypothermic with a temperature of 93.5. CT of the brain did not show any acute abnormalities but some cortical atrophy. CT of the chest showed moderate emphysematous changes and evidence of bronchoaspiration. At the current time, the patient is in no acute distress but she is very confused asking for her mother. She denies any acute chest or abdominal pain. She was evaluated back in May by Dr. Dubois where she presented with abdominal pain. At that time, no cardiac evaluation was performed. The patient was apparently going to be followed in his clinic but there is no information that the patient ever underwent any stress testing or echocardiogram. Here at [facility] she has not had any cardiac evaluation. The reason for my consultation was mildly elevated troponins and abnormal electrocardiogram. As stated above, the patient is in no acute distress whatsoever especially she is not complaining of chest pain. PAST MEDICAL HISTORY Her past medical history extensive and includes - 1. Myeloproliferative syndrome. 2. COPD. 3. Gastroesophageal reflux disease. 4. Hypertension. 5. Tachycardia. 6. Paroxysmal atrial fibrillation. 7. CVA in the past. 8. Hepatitis C. 9. Migraine headaches. 10. Pancreatitis. 11. Chronic pain. SOCIAL HISTORY She is a former smoker. Denies drinking. She lives with her . PAST SURGICAL HISTORY 1. Cholecystectomy. 2. Hernia repair. 3. Bladder surgery. 4. Breast lumpectomy. 5. Hysterectomy. ALLERGIES PROCARDIA, PENICILLIN, INDOCIN, INDERAL, AND BACTRIM. MEDICATIONS Her current medications in the hospital include - 1. Magnesium oxide. 2. Potassium chloride. 3. Furosemide 20 mg daily. 4. Fondaparinux 2.5 mg every 24 hours. 5. Hydromorphone as needed. 6. Lorazepam as needed. 7. Levofloxacin every 24 hours. 8. Diltiazem 30 mg every 6 hours. 9. Hydralazine 10 mg as needed. 10. Seroquel 25 mg daily. 11. Hydroxyzine as needed. 12. Pantoprazole 40 mg daily. PHYSICAL EXAMINATION GENERAL: As mentioned, the patient is in no acute distress. VITAL SIGNS: Currently her blood pressure is 149/72 with a mean of 97 mmHg, heart rate is 117 beats per minute, she is a febrile. HEAD AND NECK: Unremarkable without JVD or carotid bruits. LUNGS: Lungs with diffuse wheezing and rhonchi. HEART: Heart with normal S1 and S2 without murmurs or gallops. ABDOMEN: Abdomen benign without visceromegaly or bruits. EXTREMITIES: Extremities without edema. NEUROLOGIC: No gross neurological motor deficits. LABORATORY DATA BMP: Sodium 144, potassium 3.5, BUN 5, creatinine 0.44, estimated GFR 143. Troponin 0.07 and 0.06. INR 1.3. CBC with a white count of 3.5, hemoglobin of 9.5 and a platelet count of 83. Her EKG shows sinus tachycardia with some ischemic anterior T changes. Prior EKGs during this hospitalization showed transient ST elevation over the lateral leads which have resolved, these changes were observed on 10/13. IMAGING STUDIES Chest x-ray showed cardiomegaly with vascular congestion but no overt failure. CT of the brain as mentioned above. IMPRESSION A 66-year-old white female admitted with respiratory arrest and transient pulseless electrical activity requiring CPR. Her elevated troponins and EKG changes might be secondary to above described events. Right now she is not complaining of any acute chest pain. The patient does have myeloproliferative syndrome and has pancytopenia. There is no indication for any invasive cardiac care at this point. I will obtain a 2D echocardiogram to rule out any wall motion abnormalities and assess left ventricular ejection fraction. Dr. Dubois will see her next week and we will find out at that time if she has had any outpatient stress testing. We will continue to follow closely but as mentioned no further cardiac diagnostics are required at this time besides a 2D echocardiogram. MD MARLENE Medina/BJLaila /12:02 PM /3:21 PM
[2016-10-18 16:26] LABS: HEPARIN AB OD 0.123 O.D. (0.000-0.300); HEPARIN INDUCED PLATELET AB NEGATIVE (NEGATIVE)
[2016-10-18] MEDS: ACETAMINOPHEN 325 MG TAB PO PRN (19:31)
[2016-10-18] MEDS: MAGNESIUM OXIDE 400 MG TAB PO SCH (19:31)
[2016-10-19] VITALS (12 sets, daily range): BP systolic 114–161; BP diastolic 57–80; PULSE 90–114; RESP 14–18; TEMP 97.3–98.3; O2SAT 90–100
[2016-10-19] MEDS: DILTIAZEM HCL 30 MG TAB PO SCH ×4 (00:46→18:11)
[2016-10-19] MEDS: LORazepam 2 MG/ML VIAL IV PUSH PRN ×5 (00:46→22:06)
[2016-10-19] MEDS: ONDANSETRON HCL 4 MG/2 ML VIAL IV PRN ×4 (01:50→22:06)
[2016-10-19] MEDS: HYDROmorphone HCL PF 1 MG/ML VIAL IV PUSH PRN ×4 (01:50→20:46)
[2016-10-19] MEDS: CHLORHEXIDINE GLUCONATE 2 % 1 PACK (2 CLOTHS) TOP SCH (04:00)
[2016-10-19 04:18] LABS: AUTOMATED NEUTROPHIL # 2.2 TH/MM3 (1.8-7.7); BASOPHIL % 0.5 % (0.0-2.0); EOSINOPHIL % 1.1 % (0.0-4.0); LYMPH % 39.8 % (9.0-44.0); LYMPHOCYTE # 1.7 TH/MM3 (1.0-4.8); MEAN CELL VOLUME 103.3 FL (80.0-100.0); MEAN CORPUSCULAR HEMOGLOBIN 34.6 PG (27.0-34.0); MEAN CORPUSCULAR HGB CONC 33.4 % (32.0-36.0); NEUT % 51.6 % (16.0-70.0); PLATELET COUNT 96 TH/MM3 (150-450); RED BLOOD COUNT 2.81 MIL/MM3 (4.00-5.30); RED CELL DISTRIBUTION WIDTH 13.5 % (11.6-17.2); WHITE BLOOD COUNT 4.2 TH/MM3 (4.0-11.0)
[2016-10-19 04:23] LABS: HEMO FLAGS AUTO DIFF
[2016-10-19 04:33] LABS: BICARBONATE 30.2 MEQ/L (21.0-32.0); MAGNESIUM 1.4 MG/DL (1.5-2.5); POTASSIUM 3.9 MEQ/L (3.5-5.1)
[2016-10-19 04:50] LABS: PLATELET ESTIMATE SMEAR LOW (NORMAL); PLATELET MORPHOLOGY NORMAL (NORMAL); SCAN/DIFF AUTO DIFF CONFIRMED
[2016-10-19] MEDS: LACTOBACILLUS ACIDOPHILUS TAB PO SCH ×3 (05:35→20:45)
[2016-10-19] MEDS: MAGNESIUM SULFATE INJ 2 GM in SODIUM CHLORIDE 0.9% INJ 96 ML IV PRN (06:19)
[2016-10-19] MEDS: RESP: ALBUTEROL 2.5 MG/IPRATROPIUM 0.5 MG NEB (SCH) NEB ×4 (07:36→20:45)
[2016-10-19] MEDS: RESP: BUDESONIDE 0.5 MG/2 ML NEB NEB SCH ×2 (07:36→20:45)
[2016-10-19] MEDS: CHLORHEXIDINE 0.12% (ORAL KIT) 15 ML CUP MT SCH ×2 (07:41→20:00)
[2016-10-19] MEDS: LIPASE/PROTEASE/AMYLASE (6,000/19,000/30,000) CAP PO SCH (08:12)
[2016-10-19] MEDS: POTASSIUM CHLORIDE 10 MEQ CONTROLLED RELEASE TAB PO SCH (08:12)
[2016-10-19] MEDS: QUEtiapine FUMARATE 25 MG TAB PO SCH ×2 (08:12→20:45)
[2016-10-19] MEDS: FONDAPARINUX SODIUM 2.5 MG/0.5 ML SYRINGE SQ SCH (08:12)
[2016-10-19] MEDS: MAGNESIUM OXIDE 400 MG TAB PO SCH ×2 (08:12→20:45)
[2016-10-19] MEDS: SODIUM CHLORIDE 0.9% FLUSH 10 ML FLUSH IV FLUSH SCH ×2 (08:13→20:45)
[2016-10-19] MEDS: PANTOPRAZOLE SODIUM 40 MG VIAL IV SCH (08:13)
[2016-10-19] MEDS: FUROSEMIDE 20 MG/2 ML VIAL IV PUSH SCH (08:13)
[2016-10-19] MEDS: DOCUSATE SODIUM 50 MG/SENNA 8.6 MG TAB PO SCH ×2 (08:14→20:45)
--- NOTE | 2016-10-19 09:03 | HHI.PR ---
Subjective Remarks Patient in nad. She is more awake and alert. She is sitting up in the chair. Says she wants to go home and not to SNF. at bedside. Patient denies sob. Coughing at times. No abdominal pain. Diarrhea subsided. Not eating much. No fever or chills. No n/v/d/c. Objective Vitals Vital Signs Date Time Temp Pulse Resp B/P Pulse Ox O2 Delivery O2 Flow Rate FiO2 10/19/16 07:38 100 Nasal Cannula 3.00 10/19/16 06:00 102 10/19/16 04:00 98.0 101 14 161/66 96 10/19/16 04:00 101 10/19/16 02:00 90 10/19/16 00:00 110 10/19/16 00:00 98.3 110 18 124/59 96 10/18/16 22:00 102 10/18/16 20:44 96 Nasal Cannula 3.00 10/18/16 20:00 98 Nasal Cannula 2.00 10/18/16 20:00 114 10/18/16 20:00 98.3 115 25 154/80 98 10/18/16 16:21 98.8 118 19 152/65 99 10/18/16 16:00 122 10/18/16 15:08 20 10/18/16 14:12 117 10/18/16 11:50 98.7 105 19 127/68 99 10/18/16 10:40 96 Nasal Cannula 2.00 I/O 10/18/16 10/18/16 10/18/16 10/19/16 10/19/16 10/19/16 07:00 15:00 23:00 07:00 15:00 23:00 Intake Total 715 ml 640 ml 318 ml Output Total 725 ml 2800 ml 550 ml Balance -10 ml -2160 ml -232 ml Intake Oral 240 ml 240 ml 240 ml IV Total 475 ml 400 ml 78 ml Output Urine Total 725 ml 2800 ml 550 ml # Bowel Movements 2 3 Result Diagram: 10/19/16 0359 10/19/16 0359 Imaging Last Impressions Chest X-Ray 10/17/16 0600 Signed Impressions: Service Date/Time: Monday, October 17, 2016 04:32 - CONCLUSION: 1. Cardiomegaly and findings of vascular congestion without overt failure. The findings are improved when compared with the prior exam. Theodore Hammond MD Head CT 10/12/16 0145 Signed Impressions: Service Date/Time: Wednesday, October 12, 2016 02:33 - CONCLUSION: 1. No acute intracranial abnormalities. Cortical atrophic changes. Dm Cantrell MD Chest CT 10/12/16 0000 Signed Impressions: Service Date/Time: Wednesday, October 12, 2016 02:35 - CONCLUSION: 1. Moderate emphysema. 2. Endotracheal tube and nasogastric tube in satisfactory position. 3. Scattered airspace disease in the lungs with peribronchial thickening, mild bronchiectasis and bronchiolectasis with distal mucoid plugging. Primary differential diagnosis is chronic atypical mycobacterial infection or repeated aspiration. Dm Cantrell MD Abdomen/Pelvis CT 10/12/16 0000 Signed Impressions: Service Date/Time: Wednesday, October 12, 2016 02:35 - CONCLUSION: 1. No acute findings within the abdomen or pelvis. Diverticulosis. Nonobstructing left renal calculi. NG tip in stomach. Elmore catheter in bladder. Dm Cantrell MD Objective Remarks GENERAL: 66 yo F in bed, appears chronically ill, somnolent, well nourished, well developed. SKIN: Warm and dry. ENT: No nasal bleeding or discharge. Mucous membranes pink and moist. NECK: Trachea midline. No JVD. No meningeal signs. CARDIOVASCULAR: Tachycardic. Regular rate and rhythm. RESPIRATORY: No accessory muscle use. Decreased breath sounds, scattered crackles. GASTROINTESTINAL: Abdomen soft, non-tender, nondistended. MUSCULOSKELETAL: Extremities without clubbing, cyanosis, or edema. No obvious deformities. NEUROLOGICAL: Awake and alert. No obvious cranial nerve deficits. Motor grossly within normal limits. Normal speech. PSYCHIATRIC: Calm, however she is rushing me through physical exam, poor insight and judgment. A/P Problem List: (1) Septic shock ICD Code: A41.9 Status: Acute (2) Cardiac arrest ICD Code: I46.9 Status: Acute (3) Sepsis ICD Code: A41.9 Status: Acute (4) Respiratory failure ICD Code: J96.90 Status: Acute (5) COPD (chronic obstructive pulmonary disease) ICD Code: J44.9 Status: Acute (6) Calculus of proximal left ureter ICD Code: N20.1 Status: Acute (7) Abdominal pain ICD Code: R10.9 Status: Acute Assessment and Plan Patient is a 66-year-old white female with primary medical history of COPD, hypertension, chronic pain on long-term opiates, pancreatitis who came in to the hospital secondary to unresponsiveness. As per review of records, was giving patient narcotics secondary to patient having abdominal discomfort and nausea. Patient was intubated upon arrival. Also had episode of PE arrest during the time of admission. Patient was given rescue medications and was managed by critical care. Patient was extubated unsuccessfully 10/13/16, and was reintubated 10/14/16. Finally successfully extubated 10/15/16. Now being transferred to hospitalist team for management. Respiratory Failure, s/p intubation/ extubation, resolving COPD with exacerbation, resolving. Hx tobacco abuse Aspiration pneumonia, improving Recent chest x-ray 10/13/16 showed scattered patchiness within the left mid and lower lung field and right lung base consistent with atelectasis and/or pneumonia. Clinical correlation is recommended. Multiple tubes and lines are in good position. Repeat chest x-ray 10/13/16 showed interval extubation. Minimal bibasilar parenchymal opacities. Repeat CXR 10/16 improved Urine cultures negative. Sputum cultures are negative. Blood cultures negative x5 days, DC IV antibiotics vancomycin, aztreonam and Flagyl. Start levaquin IV Continue duo nebs scheduled and when necessary, Budesonide BID, Will resume advair in few days OFF Precedex Pulmonary toileting DC IVF, received lasix 20mg , continue lasix for 3 days starting tomorrow 10/18 Monitor UOP Acute encephalopathy,resolving Delirium Chronic pain Discontinue Precedex. Start Seroquel tonight 50 mg daily at bedtime, 25 mg daily in a.m. May use Haldol when necessary Hypertension, benign Chest pain, trop 0.02-0.07 patient says she had schedules as OP stress test. EKG no acute ischemic changes. Consult cardiology for evaluation and clearance for DC Will monitor BP trend for now. Patient was on levo fed prior Hold enalapril 20 mg by mouth twice a day, carvedilol 6.25 mg 3 times a day Continue aspirin 81 daily GERD Diverticulosis Gastroparesis Hiatal hernia Diarrhea. Check C diff. Start lactobacillus. Imodium as need 10/12/[address] showed no acute findings within the abdomen or pelvis. Diverticulosis. Nonobstructing left renal calculi. NG tube in the stomach. Elmore catheter in the bladder. Resume Creon when taking po. Continue pantoprazole Continue Zofran, add Reglan every 8 hours 5 mg Monitor BM. DC IVF Urinary tract infection Recurrent UTI Currently on Vanco and Flagyl, will follow up urine cultures UA with small esterase Elmore in place, DC when off Precedex, bladder training Myeloproliferative disorder PLT at 62 , consulted hem/onc. No signs of bleeding. Monitor CBC Hydrea 500 mg by mouth daily Physical deconditioning: PT for eval. DVT prop heparin Full code Discussed with patient, ICU nurse, at bedside. Discharge Planning Improving some, transfer to the floor. PT to evaluate Problem Qualifiers (1) Sepsis: Qualified Code: A41.9 - Sepsis, due to unspecified organism (2) Respiratory failure: Qualified Code: J96.01 - Acute respiratory failure with hypoxia and hypercapnia Henny Lee MD Oct 19, 2016 09:03
[2016-10-19] MEDS ORDERED: CYANOCOBALAMIN 1000 MCG/ML VIAL IM ONE (09:15)
[2016-10-19] MEDS ORDERED: CYANOCOBALAMIN 1000 MCG/ML VIAL IM SCH (09:15)
--- NOTE | 2016-10-19 10:03 | EC ---
Study Study Date:10/18/2016 STUDY CONCLUSIONS SUMMARY - Left ventricle: The cavity size was normal. Wall thickness was increased in a pattern of mild LVH. Systolic function was normal. The estimated ejection fraction was in the range of 55% to 60%. Wall motion was normal; there were no regional wall motion abnormalities. - Mitral valve: Mildly calcified annulus. - Pulmonary arteries: Systolic pressure was mildly increased. PA peak pressure: 46mm Hg (S). If LV function is below 40, please consider prescribing an ACEI or ARB or document rationale for non-use. PROCEDURE DATA STUDY STATUS: Elective. Procedure: Transthoracic echocardiography. Image quality was good. Scanning was performed from the parasternal, apical, and subcostal acoustic windows. Study completion: The patient tolerated the procedure well. Transthoracic echocardiography. M-mode, complete 2D, complete spectral Doppler, and color Doppler. Patient status: Inpatient. CARDIAC ANATOMY LEFT VENTRICLE: The cavity size was normal. Wall thickness was increased in a pattern of mild LVH. Systolic function was normal. The estimated ejection fraction was in the range of 55% to 60%. Wall motion was normal; there were no regional wall motion abnormalities. AORTIC VALVE: Trileaflet; normal thickness leaflets. Doppler: Transvalvular velocity was within the normal range. There was no stenosis. No regurgitation. AORTA: Aortic root: The aortic root was normal in size. MITRAL VALVE: Mildly calcified annulus. Doppler: Transvalvular velocity was within the normal range. There was no evidence for stenosis. Trace regurgitation. LEFT ATRIUM: The atrium was normal in size. RIGHT VENTRICLE: The cavity size was normal. Wall thickness was normal. PULMONIC VALVE: Doppler: Transvalvular velocity was within the normal range. There was no evidence for stenosis. No regurgitation. TRICUSPID VALVE: Structurally normal valve. Doppler: Transvalvular velocity was within the normal range. Trace regurgitation. PULMONARY ARTERY: The main pulmonary artery was normal-sized. Systolic pressure was mildly increased. RIGHT ATRIUM: The atrium was normal in size. PERICARDIUM: There was no pericardial effusion. SYSTEMIC VEINS: Inferior vena cava: The vessel was normal in size. BASIC MEASUREMENTS ADULT Normal Left ventricle LV internal dimension, ED, chordal level, *32.1 mm 43-52 PLAX LV internal dimension, ES, chordal level, 24.5 mm 23-38 PLAX Fractional shortening, chordal level, PLAX *24 % >29 LV posterior wall thickness, ED 9.87 mm IVS/LVPW ratio, ED *1.56 <1.3 Ventricular septum Septal thickness, ED 15.4 mm Aortic valve Leaflet separation 15 mm 15-26 Right ventricle RV internal dimension, ED, PLAX 20.6 mm 19-38 BASIC MEASUREMENTS ADULT Normal Aortic valve Leaflet separation 15 mm 15-26 Aorta Root diameter, ED 27 mm 20-37 Left atrium Anterior-posterior dimension, ES 23 mm 19-40 LA/aortic root ratio 0.85 DOPPLER MEASUREMENTS ADULT Normal Main pulmonary artery Pressure, S *46 mm Hg =30 Tricuspid valve Regurgitant peak velocity 299 cm/s Peak RV-RA gradient, S 36 mm Hg Maximal regurgitant velocity 299 cm/s Systemic veins Estimated CVP 10 mm Hg Right ventricle RV pressure, S *46 mm Hg <30 LEGEND: Mean values are shown as u=mean value. Asterisk (*) torre values outside specified normal range. Prepared and signed by Gm Thomas [id number]
[2016-10-19] MEDS ORDERED: MAGNESIUM OXIDE 400 MG TAB PO ONE (10:45)
[2016-10-19] MEDS: CYANOCOBALAMIN 1,000 MCG TAB PO SCH (12:21)
[2016-10-19] MEDS: LEVOFLOXACIN 750 MG PREMIX INJ 150 ML IV SCH (14:00)
--- NOTE | 2016-10-19 14:06 | RADRPT ---
EXAM DATE/TIME: 10/19/2016 13:12 [facility] COMPARISON: CHEST SINGLE AP, October 17, 2016, 4:32. INDICATIONS : Shortness of breath. MEDICAL HISTORY : Gastroesophageal reflux disease. Chronic obstructive pulmonary disease. SURGICAL HISTORY : None. ENCOUNTER: Initial ACUITY: 1 day PAIN SCORE: 0/10 LOCATION: Bilateral chest FINDINGS: Single AP view of the chest. Right subclavian central venous catheter remains in place. The lungs are clear. Cardiomediastinal silhouette within normal limits. No evidence of pleural effusion or pneumot horax. CONCLUSION: No acute cardiopulmonary disease identified. Zander Luciano MD on October 19, 2016 at 14:04 Board Certified Radiologist. This report was verified electronically.
[2016-10-19] MEDS: LOPERAMIDE HCL 2 MG CAP PO PRN (22:06)
[2016-10-19] MEDS: HALOPERIDOL LACTATE 5 MG/ML AMP IM PRN (22:14)
[2016-10-20] VITALS: BP 159/72; PULSE 102; RESP 18; TEMP 97.4; O2SAT 91
[2016-10-20] MEDS: DILTIAZEM HCL 30 MG TAB PO SCH ×3 (00:52→14:43)
[2016-10-20 04:00] VITALS: BP 128/58; PULSE 99; RESP 20; TEMP 97.8; O2SAT 95
[2016-10-20] MEDS: CHLORHEXIDINE GLUCONATE 2 % 1 PACK (2 CLOTHS) TOP SCH (04:00)
[2016-10-20] MEDS: LACTOBACILLUS ACIDOPHILUS TAB PO SCH ×2 (05:35→14:42)
[2016-10-20] MEDS: HYDROmorphone HCL PF 1 MG/ML VIAL IV PUSH PRN (05:35)
[2016-10-20 06:08] LABS: AUTOMATED NEUTROPHIL # 2.3 TH/MM3 (1.8-7.7); BASOPHIL % 0.2 % (0.0-2.0); EOSINOPHIL # 0.1 TH/MM3 (0-0.4); EOSINOPHIL % 1.2 % (0.0-4.0); HEMATOCRIT 28.9 % (35.0-46.0); HEMO FLAGS DIFF FINAL; LYMPH % 40.3 % (9.0-44.0); LYMPHOCYTE # 1.8 TH/MM3 (1.0-4.8); MEAN CELL VOLUME 102.9 FL (80.0-100.0); MEAN CORPUSCULAR HEMOGLOBIN 34.4 PG (27.0-34.0); MEAN CORPUSCULAR HGB CONC 33.4 % (32.0-36.0); MONO % 7.2 % (0.0-8.0); NEUT % 51.1 % (16.0-70.0); PLATELET COUNT 123 TH/MM3 (150-450); RED BLOOD COUNT 2.81 MIL/MM3 (4.00-5.30); RED CELL DISTRIBUTION WIDTH 13.3 % (11.6-17.2); WHITE BLOOD COUNT 4.5 TH/MM3 (4.0-11.0)
[2016-10-20 06:38] LABS: BICARBONATE 31.3 MEQ/L (21.0-32.0); MAGNESIUM 1.5 MG/DL (1.5-2.5)
[2016-10-20 08:00] VITALS: BP 133/61; PULSE 101; RESP 18; TEMP 97.9; O2SAT 95
[2016-10-20] MEDS: RESP: BUDESONIDE 0.5 MG/2 ML NEB NEB SCH (08:15)
[2016-10-20] MEDS: RESP: ALBUTEROL 2.5 MG/IPRATROPIUM 0.5 MG NEB (SCH) NEB ×2 (08:15→11:58)
--- NOTE | 2016-10-20 08:16 | HHI.PR ---
Subjective Remarks Slept well overnight. Says she has some nausea. Had diarrhea last night will restart cholestyramine. patient denies having abdominal pain . No sob. No vomiting. No fever or chills. Objective Vitals Vital Signs Date Time Temp Pulse Resp B/P Pulse Ox O2 Delivery O2 Flow Rate FiO2 10/20/16 04:00 97.8 99 20 128/58 95 10/20/16 04:00 Nasal Cannula 3.00 Humidified 10/20/16 00:00 97.4 102 18 159/72 91 10/20/16 00:00 Nasal Cannula 3.00 Humidified 10/19/16 20:48 95 Nasal Cannula 3.00 10/19/16 20:40 Nasal Cannula 3.00 Humidified 10/19/16 20:00 97.3 114 18 158/73 90 10/19/16 16:00 98.1 114 17 129/60 100 10/19/16 16:00 Nasal Cannula 2.00 10/19/16 16:00 97.3 114 18 157/80 96 10/19/16 16:00 114 10/19/16 14:00 102 10/19/16 12:00 98 10/19/16 12:00 98.3 98 17 114/57 100 10/19/16 10:00 104 I/O 10/19/16 10/19/16 10/19/16 10/20/16 10/20/16 10/20/16 07:00 15:00 23:00 07:00 15:00 23:00 Intake Total 318 ml 818 ml 800 ml 240 ml Output Total 550 ml 950 ml 700 ml 200 ml Balance -232 ml -132 ml 100 ml 40 ml Intake Oral 240 ml 600 ml 800 ml 240 ml IV Total 78 ml 218 ml Output Urine Total 550 ml 950 ml 700 ml 200 ml # Bowel Movements 0 1 0 Result Diagram: 10/20/16 0532 10/20/16 0532 Imaging Last Impressions Chest X-Ray 10/19/16 0000 Signed Impressions: Service Date/Time: Wednesday, October 19, 2016 13:12 - CONCLUSION: No acute cardiopulmonary disease identified. Zander Luciano MD Head CT 10/12/16 0145 Signed Impressions: Service Date/Time: Wednesday, October 12, 2016 02:33 - CONCLUSION: 1. No acute intracranial abnormalities. Cortical atrophic changes. Dm Cantrell MD Chest CT 10/12/16 0000 Signed Impressions: Service Date/Time: Wednesday, October 12, 2016 02:35 - CONCLUSION: 1. Moderate emphysema. 2. Endotracheal tube and nasogastric tube in satisfactory position. 3. Scattered airspace disease in the lungs with peribronchial thickening, mild bronchiectasis and bronchiolectasis with distal mucoid plugging. Primary differential diagnosis is chronic atypical mycobacterial infection or repeated aspiration. Dm Cantrell MD Abdomen/Pelvis CT 10/12/16 0000 Signed Impressions: Service Date/Time: Wednesday, October 12, 2016 02:35 - CONCLUSION: 1. No acute findings within the abdomen or pelvis. Diverticulosis. Nonobstructing left renal calculi. NG tip in stomach. Elmore catheter in bladder. Dm Cantrell MD Objective Remarks GENERAL: 66 yo F in bed, appears chronically ill, somnolent, well nourished, well developed. SKIN: Warm and dry. ENT: No nasal bleeding or discharge. Mucous membranes pink and moist. NECK: Trachea midline. No JVD. No meningeal signs. CARDIOVASCULAR: Tachycardic. Regular rate and rhythm. RESPIRATORY: No accessory muscle use. Decreased breath sounds, scattered crackles. GASTROINTESTINAL: Abdomen soft, non-tender, nondistended. MUSCULOSKELETAL: Extremities without clubbing, cyanosis, or edema. No obvious deformities. NEUROLOGICAL: Awake and alert. No obvious cranial nerve deficits. Motor grossly within normal limits. Normal speech. PSYCHIATRIC: Calm, however she is rushing me through physical exam, poor insight and judgment. A/P Problem List: (1) Septic shock ICD Code: A41.9 Status: Acute (2) Cardiac arrest ICD Code: I46.9 Status: Acute (3) Sepsis ICD Code: A41.9 Status: Acute (4) Respiratory failure ICD Code: J96.90 Status: Acute (5) COPD (chronic obstructive pulmonary disease) ICD Code: J44.9 Status: Acute (6) Calculus of proximal left ureter ICD Code: N20.1 Status: Acute (7) Abdominal pain ICD Code: R10.9 Status: Acute Assessment and Plan Patient is a 66-year-old white female with primary medical history of COPD, hypertension, chronic pain on long-term opiates, pancreatitis who came in to the hospital secondary to unresponsiveness. As per review of records, was giving patient narcotics secondary to patient having abdominal discomfort and nausea. Patient was intubated upon arrival. Also had episode of PE arrest during the time of admission. Patient was given rescue medications and was managed by critical care. Patient was extubated unsuccessfully 10/13/16, and was reintubated 10/14/16. Finally successfully extubated 10/15/16. Now being transferred to hospitalist team for management. Respiratory Failure, s/p intubation/ extubation, resolving COPD with exacerbation, resolving. Hx tobacco abuse Aspiration pneumonia, improving Recent chest x-ray 10/13/16 showed scattered patchiness within the left mid and lower lung field and right lung base consistent with atelectasis and/or pneumonia. Clinical correlation is recommended. Multiple tubes and lines are in good position. Repeat chest x-ray 10/13/16 showed interval extubation. Minimal bibasilar parenchymal opacities. Repeat CXR 10/16 improved Urine cultures negative. Sputum cultures are negative. Blood cultures negative x5 days, DC IV antibiotics vancomycin, aztreonam and Flagyl. Start levaquin IV Continue duo nebs scheduled and when necessary, Budesonide BID, Will resume advair in few days OFF Precedex Pulmonary toileting DC IVF, received lasix 20mg , continue lasix for 3 days starting tomorrow 10/18 Monitor UOP Acute encephalopathy, resolving Delirium Chronic pain Discontinue Precedex. Start Seroquel tonight 50 mg daily at bedtime, 25 mg daily in a.m. May use Haldol when necessary Hypertension, benign Chest pain, trop 0.02-0.07 patient says she had schedules as OP stress test. EKG no acute ischemic changes. Consult cardiology for evaluation and clearance for DC Will monitor BP trend for now. Patient was on levo fed prior Hold enalapril 20 mg by mouth twice a day, carvedilol 6.25 mg 3 times a day Continue aspirin 81 daily GERD Diverticulosis Gastroparesis Hiatal hernia Diarrhea. Check C diff. Start lactobacillus. Imodium as need 10/12/[address] showed no acute findings within the abdomen or pelvis. Diverticulosis. Nonobstructing left renal calculi. NG tube in the stomach. Elmore catheter in the bladder. Resume Creon when taking po. Continue pantoprazole Continue Zofran, add Reglan every 8 hours 5 mg Monitor BM. DC IVF Urinary tract infection Recurrent UTI Currently on Vanco and Flagyl, will follow up urine cultures UA with small esterase Elmore in place, DC when off Precedex, bladder training Myeloproliferative disorder PLT at 62 , consulted hem/onc. No signs of bleeding. Monitor CBC Hydrea 500 mg by mouth daily Physical deconditioning: PT for eval. DVT prop heparin Full code Discussed with patient, ICU nurse, at bedside. Discharge Planning Improving, plan to dC home with home health. To follow up as OP with PCP and consultants. Problem Qualifiers (1) Sepsis: Qualified Code: A41.9 - Sepsis, due to unspecified organism (2) Respiratory failure: Qualified Code: J96.01 - Acute respiratory failure with hypoxia and hypercapnia Henny Lee MD Oct 20, 2016 08:16
[2016-10-20 08:19] VITALS: O2SAT 95
[2016-10-20] MEDS ORDERED: GETGO ROLLING W1 MI1 (08:21)
[2016-10-20] MEDS ORDERED: LEVO750T3 PO (08:21)
[2016-10-20] MEDS ORDERED: DILT31TA PO (08:21)
--- NOTE | 2016-10-20 08:21 | HHI.DS ---
Discharge Summary Admission Date October 12, 2016 at 02:47 Discharge Date: Oct 20, 2016 Admitting Diagnosis acute respiratory failure, unresponsive, sepsis, UTI (1) Respiratory failure ICD Code: J96.90 Diagnosis: Principal (2) Septic shock ICD Code: A41.9 Diagnosis: Secondary (3) Cardiac arrest ICD Code: I46.9 Diagnosis: Secondary (4) Sepsis ICD Code: A41.9 Diagnosis: Secondary (5) COPD (chronic obstructive pulmonary disease) ICD Code: J44.9 Diagnosis: Secondary (6) Abdominal pain ICD Code: R10.9 Procedures intubated/extubated Brief History - From Admission 66 yo WF with PMH of COPD, hypertension, chronic pain on long-term opiates, pancreatitis who presents to [facility] emergency department due to unresponsiveness. Her is at bedside and states that she had been nauseous and therefore refused to take her narcotic medications since 10/08. He noticed that tonight she was having epigastric abdominal discomfort and dry heaves which he has seen when she has narcotic withdrawal in the past. He gave her OxyContin 40 mg at 1500, 40 mg at 1700 and 40 mg at 2000 on 10/11. He gave her Restoril and trazodone at 2200. He saw her at 23:30 and states she was fine. At midnight he found her unresponsive in the bathroom. EVAC administered Narcan without significant response. Blood glucose is 165. She arrived to the ED being bagged. She was intubated upon arrival. She was initially hypertensive 204/72 and ED physician reported concern for ICH or stroke so CT brain was performed that was negative for acute abnormalities. ED workup included white blood cell count of 16, creatinine 1.58, sodium 134., Lactic acid 2.3. She was administered Zosyn and vancomycin. CT chest abdomen and pelvis were obtained. She had moderate emphysema, evidence of aspiration. No acute intra-abdominal findings. She was placed on propofol for sedation. Her peripheral blood pressure continuously down trended and she became hypotensive with blood pressure in the 60s. Central venous line was placed by Dr. Rowan and she was placed on Levaquin at 5 mcg/m. After the central venous line was placed she was positioned upright and had a bradycardia PEA arrest 4 minutes in duration. She received epinephrine 3, atropine 1 mg IV. Dopamine was added at 5 mcg/min. Postarrest chest x-ray demonstrated satisfactory central venous line position without pneumothorax. Patient is hypothermic with core temp 93.5. Obtain bedside glucose which was 80 and administered half amp of D50. Post arrest lactic acid 1.3. ABG with pH 7.19/ PaCO2 45/PaCO2 525/bicarbonate 17 CBC/BMP: 10/20/16 0532 10/20/16 0532 Significant Findings Laboratory Tests Test 10/17/16 10/17/16 10/18/16 10/18/16 11:42 17:30 03:00 11:00 Sodium Level 146 MEQ/L (136-145) Potassium Level 2.8 MEQ/L (3.5-5.1) Chloride Level 108 MEQ/L 111 MEQ/L 110 MEQ/L (98-107) (98-107) (98-107) Calcium Level 7.6 MG/DL 8.0 MG/DL 7.5 MG/DL (8.5-10.1) (8.5-10.1) (8.5-10.1) Phosphorus Level 1.9 MG/DL (2.5-4.9) Magnesium Level 1.4 MG/DL (1.5-2.5) Troponin I 0.07 NG/ML 0.06 NG/ML (0.02-0.05) (0.02-0.05) Total Protein 5.9 GM/DL (6.4-8.2) Albumin 2.2 GM/DL (3.4-5.0) Blood Urea Nitrogen 6 MG/DL (7-18) 5 MG/DL (7-18) Creatinine 0.49 MG/DL 0.44 MG/DL (0.50-1.00) (0.50-1.00) White Blood Count 3.5 TH/MM3 (4.0-11.0) Red Blood Count 2.75 MIL/MM3 (4.00-5.30) Hemoglobin 9.5 GM/DL (11.6-15.3) Hematocrit 28.6 % (35.0-46.0) Mean Corpuscular Volume 104.0 FL (80.0-100.0) Mean Corpuscular Hemoglobin 34.4 PG (27.0-34.0) Platelet Count 83 TH/MM3 (150-450) Neutrophils # (Auto) 1.7 TH/MM3 (1.8-7.7) Test 10/19/16 10/20/16 03:59 05:32 Red Blood Count 2.81 MIL/MM3 2.81 MIL/MM3 (4.00-5.30) (4.00-5.30) Hemoglobin 9.7 GM/DL 9.7 GM/DL (11.6-15.3) (11.6-15.3) Hematocrit 29.0 % 28.9 % (35.0-46.0) (35.0-46.0) Mean Corpuscular Volume 103.3 FL 102.9 FL (80.0-100.0) (80.0-100.0) Mean Corpuscular Hemoglobin 34.6 PG 34.4 PG (27.0-34.0) (27.0-34.0) Platelet Count 96 TH/MM3 123 TH/MM3 (150-450) (150-450) Platelet Estimate LOW (NORMAL) Chloride Level 108 MEQ/L (98-107) Blood Urea Nitrogen 4 MG/DL (7-18) 5 MG/DL (7-18) Creatinine 0.44 MG/DL (0.50-1.00) Calcium Level 8.1 MG/DL 8.2 MG/DL (8.5-10.1) (8.5-10.1) Magnesium Level 1.4 MG/DL (1.5-2.5) Imaging Last Impressions Chest X-Ray 10/19/16 0000 Signed Impressions: Service Date/Time: Wednesday, October 19, 2016 13:12 - CONCLUSION: No acute cardiopulmonary disease identified. Zander Luciano MD Head CT 10/12/16 0145 Signed Impressions: Service Date/Time: Wednesday, October 12, 2016 02:33 - CONCLUSION: 1. No acute intracranial abnormalities. Cortical atrophic changes. Dm Cantrell MD Chest CT 10/12/16 0000 Signed Impressions: Service Date/Time: Wednesday, October 12, 2016 02:35 - CONCLUSION: 1. Moderate emphysema. 2. Endotracheal tube and nasogastric tube in satisfactory position. 3. Scattered airspace disease in the lungs with peribronchial thickening, mild bronchiectasis and bronchiolectasis with distal mucoid plugging. Primary differential diagnosis is chronic atypical mycobacterial infection or repeated aspiration. Dm Cantrell MD Abdomen/Pelvis CT 10/12/16 0000 Signed Impressions: Service Date/Time: Wednesday, October 12, 2016 02:35 - CONCLUSION: 1. No acute findings within the abdomen or pelvis. Diverticulosis. Nonobstructing left renal calculi. NG tip in stomach. Elmore catheter in bladder. Dm Cantrell MD PE at Discharge GENERAL: 66 yo F in bed, appears chronically ill, somnolent, well nourished, well developed. SKIN: Warm and dry. ENT: No nasal bleeding or discharge. Mucous membranes pink and moist. NECK: Trachea midline. No JVD. No meningeal signs. CARDIOVASCULAR: Tachycardic. Regular rate and rhythm. RESPIRATORY: No accessory muscle use. Decreased breath sounds, scattered crackles. GASTROINTESTINAL: Abdomen soft, non-tender, nondistended. MUSCULOSKELETAL: Extremities without clubbing, cyanosis, or edema. No obvious deformities. NEUROLOGICAL: Awake and alert. No obvious cranial nerve deficits. Motor grossly within normal limits. Normal speech. PSYCHIATRIC: Calm, however she is rushing me through physical exam, poor insight and judgment. Transfer Summary 66 yo WF with PMH of COPD, hypertension, chronic pain on long-term opiates, pancreatitis who presents to [facility] emergency department due to unresponsiveness. Her is at bedside and states that she had been nauseous and therefore refused to take her narcotic medications since 10/08. He noticed that tonight she was having epigastric abdominal discomfort and dry heaves which he has seen when she has narcotic withdrawal in the past. He gave her OxyContin 40 mg at 1500, 40 mg at 1700 and 40 mg at 2000 on 10/11. He gave her Restoril and trazodone at 2200. He saw her at 23:30 and states she was fine. At midnight he found her unresponsive in the bathroom. EVAC administered Narcan without significant response. Blood glucose is 165. She arrived to the ED being bagged. She was intubated upon arrival. She was initially hypertensive 204/72 and ED physician reported concern for ICH or stroke so CT brain was performed that was negative for acute abnormalities. ED workup included white blood cell count of 16, creatinine 1.58, sodium 134., Lactic acid 2.3. She was administered Zosyn and vancomycin. CT chest abdomen and pelvis were obtained. She had moderate emphysema, evidence of aspiration. No acute intra-abdominal findings. She was placed on propofol for sedation. Her peripheral blood pressure continuously down trended and she became hypotensive with blood pressure in the 60s. Central venous line was placed by Dr. Rowan and she was placed on Levaquin at 5 mcg/m. After the central venous line was placed she was positioned upright and had a bradycardia PEA arrest 4 minutes in duration. She received epinephrine 3, atropine 1 mg IV. Dopamine was added at 5 mcg/min. Postarrest chest x-ray demonstrated satisfactory central venous line position without pneumothorax. Patient is hypothermic with core temp 93.5. Obtain bedside glucose which was 80 and administered half amp of D50. Post arrest lactic acid 1.3. ABG with pH 7.19/ PaCO2 45/PaCO2 525/bicarbonate 17 10/13: Much improved overnight. Warm, well perfused. Extubated and breathing comfortably. 11/14: Fevere, hypoxemia last night. Intubated again. Cancel [facility] transfer, will notiffy hospitalist nurse. : No issues overnight, comfortable during CPAP trial and successfully extubated Hospital Course Patient is a 66-year-old white female with primary medical history of COPD, hypertension, chronic pain on long-term opiates, pancreatitis who came in to the hospital secondary to unresponsiveness. As per review of records, was giving patient narcotics secondary to patient having abdominal discomfort and nausea. Patient was intubated upon arrival. Also had episode of PE arrest during the time of admission. Patient was given rescue medications and was managed by critical care. Patient was extubated unsuccessfully 10/13/16, and was reintubated 10/14/16. Finally successfully extubated 10/15/16. Now being transferred to hospitalist team for management. Respiratory Failure, s/p intubation/ extubation, resolving COPD with exacerbation, resolving. Hx tobacco abuse Aspiration pneumonia, improving Recent chest x-ray 10/13/16 showed scattered patchiness within the left mid and lower lung field and right lung base consistent with atelectasis and/or pneumonia. Clinical correlation is recommended. Multiple tubes and lines are in good position. Repeat chest x-ray 10/13/16 showed interval extubation. Minimal bibasilar parenchymal opacities. Repeat CXR 10/16 improved Urine cultures negative. Sputum cultures are negative. Blood cultures negative x5 days, DC IV antibiotics vancomycin, aztreonam and Flagyl. Start levaquin IV Continue duo nebs scheduled and when necessary, Budesonide BID, resume advair OFF Precedex Pulmonary toileting On levaqin. DC IVF, received lasix 20mg , continue lasix for 3 days starting tomorrow 10/18 Monitor UOP Acute encephalopathy, resolving Delirium Chronic pain Discontinue Precedex. Start Seroquel 50 mg daily at bedtime, 25 mg daily in a.m. May use Haldol when necessary Hypertension, benign Chest pain, trop 0.02-0.07 patient says she had schedules as OP stress test. EKG no acute ischemic changes. Consult cardiology for evaluation and clearance for DC Will monitor BP trend for now. Patient was on levo fed prior Hold enalapril 20 mg by mouth twice a day, carvedilol 6.25 mg 3 times a day Continue aspirin 81 daily GERD Diverticulosis Gastroparesis Hiatal hernia Diarrhea. Check C diff. Start lactobacillus. Imodium as need 10/12/[address] showed no acute findings within the abdomen or pelvis. Diverticulosis. Nonobstructing left renal calculi. NG tube in the stomach. Elmore catheter in the bladder. Resume Creon when taking po. Continue pantoprazole Continue Zofran, add Reglan every 8 hours 5 mg Monitor BM. DC IVF Urinary tract infection Recurrent UTI Currently on Vanco and Flagyl, will follow up urine cultures UA with small esterase Elmore in place, DC when off Precedex, bladder training Myeloproliferative disorder PLT at 63 noted 10/16 , consulted hem/onc. No signs of bleeding. PLT improving. Monitor CBC Cont Hydrea 500 mg by mouth daily Physical deconditioning: PT for eval. DVT prop heparin Full code Discussed with patient, ICU nurse, at bedside. Discharge Planning Improving, plan to DC home with home health. To follow up as OP with PCP and consultants. Pt Condition on Discharge: Stable Discharge Disposition: Disch w/ Home Health Serv Discharge Time: > 30 minutes Discharge Instructions DIET: Follow Instructions for: Heart Healthy Diet Speech Therapy-Diet Recommends: Other Activities you can perform: Regular-No Restrictions Follow up Referrals: Pain Management - 1 Week PCP Follow-up - 3-5 Days New Medications: Levofloxacin (Levofloxacin) 750 Mg Tablet 750 MG PO DAILY Infection #3 Ref 0 TAB Walker Rolling/GetGo (Walker Rolling/GetGo) 1 Mis Mis 1 EA .ROUTE DIRECTED #1 EA Diltiazem (Cardizem) 30 Mg Tab 30 MG PO Q6HR Blood Pressure Management #120 TAB Quetiapine (Quetiapine) 25 Mg Tab 50 MG PO HS Agitation #30 TAB Quetiapine (Quetiapine) 25 Mg Tab 25 MG PO DAILY Agitation #30 TAB Continued Medications: Albuterol 18 GM Inh (Ventolin Hfa 18 GM Inh) 90 Mcg/Act Aer 1 PUFF INH Q4H PRN SHORTNESS OF BREATH #1 Ref 0 INHALER Aspirin (Aspirin) 81 Mg Tabdr 81 MG PO DAILY TAB Bethanechol (Bethanechol) 25 Mg Tab 25 MG PO 1/2 hour before meal Urinary Symptom Managemen Ref 0 TAB Carisoprodol (Soma) 350 Mg Tab 350 MG PO HS PRN PAIN Ref 0 TAB Cholestyramine (Cholestyramine) 4 Gm/Dose Powd 4 GM PO BID 1 level scoopful of powder contains 4 grams of cholestyramine. Dyslipidemia #14 Ref 0 CAN Enalapril (Enalapril) 10 Mg Tab 20 MG PO BID Blood Pressure Management Days 30 TAB Estradiol Vaginal (Estrace Vaginal) 0.01% Cream 1 APPL VAGINAL BID Estrogen Supplements #1 Ref 0 TUBE Fluticasone-Salmeterol Inh (Advair Diskus Inh) 100-50 Mcg/Blist Aer 1 PUFF INH BID Rinse mouth after use. #1 Ref 0 INHALER Hydroxyurea (Hydroxyurea) 500 Mg Cap 500 MG PO DAILY Ref 0 CAP Lactobacillus Acidophilus (Probiotic) 1 Cap Cap 2 CAP PO TIDAC Nutritional Supplement #180 Ref 0 CAP Methenamine Hippurate (Methenamine Hippurate) 1 Gm Tab 0.5 GM PO BID Infection Ref 0 TAB Omeprazole (Omeprazole) 40 Mg Cap 40 MG PO DAILY #30 Ref 0 CAP Ondansetron (Zofran) 8 Mg Tab 8 MG PO TID PRN NAUSEA OR VOMITING #30 Ref 1 TAB Oxycodone (Oxycodone) 15 Mg Tab 15 MG PO BID PRN PAIN SCALE 1 TO 10 Ref 0 TAB Pancrelipase (Creon) 3,000-9,500-15,000 Units Cap 1 CAP PO DAILY Digestive Aid #90 Ref 0 CAP Potassium Chloride Microencaps (Potassium Chloride Microencaps) 20 Meq Tab 40 MEQ PO DAILY Electrolyte Replacement #14 TAB Sumatriptan-Naproxen (Treximet) 85-500 Mg Tab 1 TAB PO Q12HR May take a second dose after 2 hours if needed. Maximum 2 tabs in 24 hour period. PRN migraines Ref 0 TAB Temazepam (Temazepam) 30 Mg Cap 30 MG PO HS PRN INSOMNIA #30 Ref 0 CAP Trazodone (Trazodone) 50 Mg Tab 50 MG PO HS Control Depression #30 Ref 0 TAB ([Ibguard]) 2 TAB PO TID ([oxygen 3 LPM by NC]) 3 LITER YASH.CANULA DIRECTED Discontinued Medications: Carvedilol (Carvedilol) 12.5 Mg Tab 6.25 MG PO TID #60 Ref 0 TAB Oxycodone ER (Oxycodone ER) 40 Mg Tab 40 MG PO TID Pain Management Ref 0 TAB Henny Lee MD Oct 20, 2016 08:21
--- NOTE | 2016-10-20 08:24 | HHI.FF ---
Face to Face Verification Diagnosis: (1) COPD with acute exacerbation (2) Intractable nausea and vomiting (3) Delirium due to another medical condition (4) Electrolyte disturbance (5) Chest pain (6) Chronic narcotic dependence (7) Unresponsive (8) Respiratory failure (9) Pneumonia Physical Therapy Order: Evaluate and Treat Home Health Nursing Order: Medical education Signs/symptoms of disease process Medication education-adverse effect Nursing assessment with vital signs I have seen patient Negin Robertson on 10/20/16. My clinical findings support the need for the requested home health care services because: Ltd mobility - disease progression I certify that my clinical findings support that this patient is homebound because: Post-op weakness Henny Lee MD Oct 20, 2016 08:24
[2016-10-20] MEDS: ONDANSETRON HCL 4 MG/2 ML VIAL IV PRN (09:44)
[2016-10-20] MEDS: PANTOPRAZOLE SODIUM 40 MG VIAL IV SCH (09:44)
[2016-10-20] MEDS ORDERED: CHOLESTYRAMINE 4 GM PACKET PO SCH (09:45)
[2016-10-20] MEDS: FUROSEMIDE 20 MG/2 ML VIAL IV PUSH SCH (09:45)
[2016-10-20] MEDS: QUEtiapine FUMARATE 25 MG TAB PO SCH (09:52)
[2016-10-20] MEDS: POTASSIUM CHLORIDE 10 MEQ CONTROLLED RELEASE TAB PO SCH (09:53)
[2016-10-20] MEDS: MAGNESIUM OXIDE 400 MG TAB PO SCH (09:53)
[2016-10-20] MEDS: FONDAPARINUX SODIUM 2.5 MG/0.5 ML SYRINGE SQ SCH (09:53)
[2016-10-20] MEDS: CYANOCOBALAMIN 1,000 MCG TAB PO SCH (09:53)
[2016-10-20] MEDS: LIPASE/PROTEASE/AMYLASE (6,000/19,000/30,000) CAP PO SCH (09:54)
[2016-10-20] MEDS: SODIUM CHLORIDE 0.9% FLUSH 10 ML FLUSH IV FLUSH SCH (09:54)
[2016-10-20] MEDS ORDERED: QUET1TAB7 PO ×2 (11:12)
--- NOTE | 2016-10-20 11:42 | HHI.HCPN ---
Reason for visit a. To assist with evaluation and management of symptoms including: Shortness of breath and debility. b. To assist medical decision maker(s) with: better understanding of current medical conditions; weighing benefits/burdens of medical treatment options; making medical treatment decisions. . Subjective/Interval History Mrs. Robertson is a 66 y/o female with a medical history significant for multiple chronic comorbidities including COPD, hypertension, GERD, myeloproliferative blood disease, pancreatitis and chronic pain on high-dose of opioids. Patient admitted on 10/12/16 secondary to opioid overdose, respiratory failure. Patient intubated on 10/04/16. PEA arrest x min likely secondary to cardiogenic shock. Extubated on 10/13/16. Reintubated on 10/14/16 and medically extubated on . Patient with a history of multiple acute hospitalizations and ED visits within the past year. Palliative care was consulted at the request of patient' s . Patient seen in her room, she was resting bed in no acute distress. Endorsing neck and back pain, mild nausea but no vomiting. Reports fair appetite, tolerating a regular diet. Patient tells me that she feels ready to go home. Patient afebrile, mildly tachycardic with heart rate in the low 110s. Stable hemodynamically. O2 via nasal cannula 3 L, oxygen saturation in the mid 90s. Blood, urine and sputum culture 10/04/16 no growth. Most recent chest x-ray indicating no acute process. Laboratory workup today showing WBC 4.5, Hgb 9.7, platelet count 123. Sodium 143, potassium 4.0, BUN/creatinine 5/0.52. Heme /onc Dr. Sung consulted on 11-01 for evaluation of thrombocytopenia, recommended discontinuation of Hydroxyurea and heparin. Cardiology consulted on 11/14/16 secondary to abnormal EKG and elevated troponins. 2-D echo secured, EF ranging between 55% to 60%. No indication for invasive cardiac care identified at that point. Spoke with patient and re clarifications of goals of care and discharge planning. Goals of care remain unchanged, patient wishing to pursue aggressive care, goal is to discharge home with home health. Patient provided name of home health facility, this information has been provided to case briefer. . Family/friend interactions See interval none. . Advance Directives Living Will: Never completed Health Care Surrogate: Never completed Durable Power of Bundle Breaker: Never completed Advance Directive Specifics Health Care Surrogate(s): Healthcare proxy is patient's Santhosh Robertson. . Documented care wishes: No living will completed. . Significant change in goals: Goals of care remain unchanged. Objective Vital Signs Date Time Temp Pulse Resp B/P Pulse Ox O2 Delivery O2 Flow Rate FiO2 10/20/16 08:19 95 Nasal Cannula 3.00 10/20/16 08:00 97.9 101 18 133/61 95 10/20/16 04:00 97.8 99 20 128/58 95 10/20/16 04:00 Nasal Cannula 3.00 Humidified 10/20/16 00:00 97.4 102 18 159/72 91 10/20/16 00:00 Nasal Cannula 3.00 Humidified 10/19/16 20:48 95 Nasal Cannula 3.00 10/19/16 20:40 Nasal Cannula 3.00 Humidified 10/19/16 20:00 97.3 114 18 158/73 90 10/19/16 16:00 98.1 114 17 129/60 100 10/19/16 16:00 Nasal Cannula 2.00 10/19/16 16:00 97.3 114 18 157/80 96 10/19/16 16:00 114 10/19/16 14:00 102 10/19/16 12:00 98 10/19/16 12:00 98.3 98 17 114/57 100 Intake & Output 10/20/16 10/20/16 07:00 19:00 Intake Total 1040 ml Output Total 900 ml Balance 140 ml Intake Oral 1040 ml Output Urine Total 900 ml # Bowel Movements 1 Physical Exam CONSTITUTIONAL/GENERAL: This is an adequately nourished patient resting in bed in no acute distress. TUBES/LINES/DRAINS: PIV's, nasal cannula, Elmore catheter. Central line to right upper chest. SKIN: No jaundice, rashes, or lesions. Ecchymoses on upper extremities. No wounds seen anteriorly. Skin temperature appropriate. Not diaphoretic. HEAD: Atraumatic. Normocephalic. EYES: Pupils equal and round and reactive. No scleral icterus. No injection or drainage. ENT: Hearing grossly normal. Nose without bleeding or purulent drainage. Moist oral mucosa. Poor dentition. NECK: Trachea midline. Supple, nontender. CARDIOVASCULAR: Tachycardic with heart rate in the 110s. Peripheral pulses symmetric. RESPIRATORY/CHEST: Symmetric, increased work of breathing. Mildly coarse anteriorly R >L. O2 via nasal cannula 3 L. GASTROINTESTINAL: Abdomen soft, non-tender, nondistended. No guarding. Bowel sounds present. GENITOURINARY: Without palpable bladder distension. Elmore catheter in place. MUSCULOSKELETAL: Extremities without clubbing, cyanosis, or edema. No mottling or clubbing. NEUROLOGICAL: Awake and alert x self, place and situation. Slurred speech. Follows commands.Moves all extremities. PSYCHIATRIC: Calm. . Diagnostic Tests Laboratory Laboratory Tests Test 10/17/16 10/17/16 10/18/16 10/18/16 11:42 17:30 03:00 11:00 Sodium Level 146 MEQ/L 145 MEQ/L 144 MEQ/L (136-145) (136-145) (136-145) Potassium Level 2.8 MEQ/L 4.0 MEQ/L 3.5 MEQ/L (3.5-5.1) (3.5-5.1) (3.5-5.1) Chloride Level 108 MEQ/L 111 MEQ/L 110 MEQ/L (98-107) (98-107) (98-107) Carbon Dioxide Level 28.8 MEQ/L 25.3 MEQ/L 28.8 MEQ/L (21.0-32.0) (21.0-32.0) (21.0-32.0) Anion Gap 9 MEQ/L (5-15) 9 MEQ/L (5-15) 5 MEQ/L (5-15) Blood Urea Nitrogen 7 MG/DL (7-18) 6 MG/DL (7-18) 5 MG/DL (7-18) Creatinine 0.55 MG/DL 0.49 MG/DL 0.44 MG/DL (0.50-1.00) (0.50-1.00) (0.50-1.00) Estimat Glomerular Filtration 110 ML/MIN 126 ML/MIN 143 ML/MIN Rate (>89) (>89) (>89) Random Glucose 103 MG/DL 96 MG/DL 79 MG/DL (74-106) (74-106) (74-106) Calcium Level 7.6 MG/DL 8.0 MG/DL 7.5 MG/DL (8.5-10.1) (8.5-10.1) (8.5-10.1) Phosphorus Level 1.9 MG/DL 3.2 MG/DL (2.5-4.9) (2.5-4.9) Magnesium Level 1.4 MG/DL 2.0 MG/DL 1.5 MG/DL (1.5-2.5) (1.5-2.5) (1.5-2.5) Total Bilirubin 0.5 MG/DL (0.2-1.0) Aspartate Amino Transf 19 U/L (15-37) (AST/SGOT) Alanine Aminotransferase 16 U/L (10-53) (ALT/SGPT) Alkaline Phosphatase 50 U/L (45-117) Troponin I 0.07 NG/ML 0.06 NG/ML (0.02-0.05) (0.02-0.05) Total Protein 5.9 GM/DL (6.4-8.2) Albumin 2.2 GM/DL (3.4-5.0) Vitamin B12 Level 842 PG/ML (193-986) Folate 4.1 NG/ML (3.1-17.5) Heparin-Induced Platelet Ab NEGATIVE (Rae) (NEGATIVE) HIPA Patient Optical Density 0.123 O.D. (0.000-0.300) White Blood Count 3.5 TH/MM3 (4.0-11.0) Red Blood Count 2.75 MIL/MM3 (4.00-5.30) Hemoglobin 9.5 GM/DL (11.6-15.3) Hematocrit 28.6 % (35.0-46.0) Mean Corpuscular Volume 104.0 FL (80.0-100.0) Mean Corpuscular Hemoglobin 34.4 PG (27.0-34.0) Mean Corpuscular Hemoglobin 33.1 % Concent (32.0-36.0) Red Cell Distribution Width 13.5 % (11.6-17.2) Platelet Count 83 TH/MM3 (150-450) Mean Platelet Volume 9.0 FL (7.0-11.0) Neutrophils (%) (Auto) 48.7 % (16.0-70.0) Lymphocytes (%) (Auto) 43.0 % (9.0-44.0) Monocytes (%) (Auto) 6.9 % (0.0-8.0) Eosinophils (%) (Auto) 1.0 % (0.0-4.0) Basophils (%) (Auto) 0.4 % (0.0-2.0) Neutrophils # (Auto) 1.7 TH/MM3 (1.8-7.7) Lymphocytes # (Auto) 1.5 TH/MM3 (1.0-4.8) Monocytes # (Auto) 0.2 TH/MM3 (0-0.9) Eosinophils # (Auto) 0.0 TH/MM3 (0-0.4) Basophils # (Auto) 0.0 TH/MM3 (0-0.2) CBC Comment DIFF FINAL Differential Comment Lipase 131 U/L (73-393) Test 10/19/16 10/20/16 03:59 05:32 White Blood Count 4.2 TH/MM3 4.5 TH/MM3 (4.0-11.0) (4.0-11.0) Red Blood Count 2.81 MIL/MM3 2.81 MIL/MM3 (4.00-5.30) (4.00-5.30) Hemoglobin 9.7 GM/DL 9.7 GM/DL (11.6-15.3) (11.6-15.3) Hematocrit 29.0 % 28.9 % (35.0-46.0) (35.0-46.0) Mean Corpuscular Volume 103.3 FL 102.9 FL (80.0-100.0) (80.0-100.0) Mean Corpuscular Hemoglobin 34.6 PG 34.4 PG (27.0-34.0) (27.0-34.0) Mean Corpuscular Hemoglobin 33.4 % 33.4 % Concent (32.0-36.0) (32.0-36.0) Red Cell Distribution Width 13.5 % 13.3 % (11.6-17.2) (11.6-17.2) Platelet Count 96 TH/MM3 123 TH/MM3 (150-450) (150-450) Mean Platelet Volume 9.3 FL 9.5 FL (7.0-11.0) (7.0-11.0) Neutrophils (%) (Auto) 51.6 % 51.1 % (16.0-70.0) (16.0-70.0) Lymphocytes (%) (Auto) 39.8 % 40.3 % (9.0-44.0) (9.0-44.0) Monocytes (%) (Auto) 7.0 % (0.0-8.0) 7.2 % (0.0-8.0) Eosinophils (%) (Auto) 1.1 % (0.0-4.0) 1.2 % (0.0-4.0) Basophils (%) (Auto) 0.5 % (0.0-2.0) 0.2 % (0.0-2.0) Neutrophils # (Auto) 2.2 TH/MM3 2.3 TH/MM3 (1.8-7.7) (1.8-7.7) Lymphocytes # (Auto) 1.7 TH/MM3 1.8 TH/MM3 (1.0-4.8) (1.0-4.8) Monocytes # (Auto) 0.3 TH/MM3 0.3 TH/MM3 (0-0.9) (0-0.9) Eosinophils # (Auto) 0.0 TH/MM3 0.1 TH/MM3 (0-0.4) (0-0.4) Basophils # (Auto) 0.0 TH/MM3 0.0 TH/MM3 (0-0.2) (0-0.2) CBC Comment AUTO DIFF DIFF FINAL Differential Comment AUTO DIFF CONFIRMED Platelet Estimate LOW (NORMAL) Platelet Morphology Comment NORMAL (NORMAL) Sodium Level 143 MEQ/L 143 MEQ/L (136-145) (136-145) Potassium Level 3.9 MEQ/L 4.0 MEQ/L (3.5-5.1) (3.5-5.1) Chloride Level 108 MEQ/L 106 MEQ/L (98-107) (98-107) Carbon Dioxide Level 30.2 MEQ/L 31.3 MEQ/L (21.0-32.0) (21.0-32.0) Anion Gap 5 MEQ/L (5-15) 6 MEQ/L (5-15) Blood Urea Nitrogen 4 MG/DL (7-18) 5 MG/DL (7-18) Creatinine 0.44 MG/DL 0.52 MG/DL (0.50-1.00) (0.50-1.00) Estimat Glomerular Filtration 143 ML/MIN 118 ML/MIN Rate (>89) (>89) Random Glucose 74 MG/DL 77 MG/DL (74-106) (74-106) Calcium Level 8.1 MG/DL 8.2 MG/DL (8.5-10.1) (8.5-10.1) Phosphorus Level 2.5 MG/DL 3.0 MG/DL (2.5-4.9) (2.5-4.9) Magnesium Level 1.4 MG/DL 1.5 MG/DL (1.5-2.5) (1.5-2.5) Result Diagram: 10/20/16 0532 10/20/16 0532 Imaging Last 48 hours Impressions Chest X-Ray 10/19/16 0000 Signed Impressions: Service Date/Time: Wednesday, October 19, 2016 13:12 - CONCLUSION: No acute cardiopulmonary disease identified. Zander Luciano MD Procedures * 10/12/16 -endotracheal intubation. * 10/13/16 -medical extubation * 10/14/16 -endotracheal reintubation * 10/15/16 -medical extubation . Assessment and Plan Disease Oriented Problem List: (1) Respiratory failure (2) Cardiac arrest (3) Sepsis (4) UTI (urinary tract infection) Symptom Scale: (1) Nausea 0-10 Scale: 0 Comment: Multifactorial. Likely secondary to chronic history of gastroparesis. (2) Shortness of breath 0-10 Scale: Unable to quantify Comment: Aspiration pneumonia. Tolerating O2 via nasal cannula. Patient medically extubated on 10/15/16. (3) Debility 0-10 Scale: Unable to quantify Comment: Progressive. Worsened since April 2016. Pertinent Non-Medical Issues Psychosocial: . One daughter. Spiritual: Scientology. Legal: No living will completed. Ethical issues impacting care: No living will completed. . Important Contacts Santhosh Robertson . . Prognosis Mrs. Robertson is a 66-year-old female with multiple chronic issues and recurrent acute hospitalizations and ED visits for the past year. Patient with reported overall failing health since April 2016, worsening mentation and cognitive function. Patient at high risk for further complications, continue decline and given multiple chronic comorbidities, acute events, multiple recent hospitalizations and profound physical deconditioning. . Code Status: Full Code Plan * CODE STATUS: Full code. Confirmed with . * HEALTHCARE DECISION-MAKING: Patient participating in medical decision-making. No advance directives completed. As per [place] law, patient's Santhosh Robertson would be healthcare proxy decision maker. * GOALS OF CARE: Goals of care remain unchanged, continue aggressive medical management to include FULL code, hospitalizations and diagnostic testing/ procedures. Goal at this time is to discharge home with home health. Patient provided name of home health facility, this information has been provided to case briefer. previously shared his concerns regarding patient's increasingly needs at home, he reports that at this time he will like to take her back home but will continue evaluating the need for long-term placement if necessary. reports that patient will follow up with cardiology/ outpatient for stress test. * SYMPTOMS: = Nausea, chronic. Patient with long history of gastroparesis. Currently on Reglan. Zofran available as needed. = Shortness of breath, patient with history of COPD. Acute pneumonia. Medically extubated on . = Debility, secondary to multiple chronic medical issues and multiple recent hospitalizations. DC home with home health. * Case discussed with case briefer. * Palliative care contact information has been provided to patient's . * Palliative care will continue to follow-up as needed for further clarifications of goals of care as patient's clinical condition continues to evolve. . Time Spent Total Floor Time (mins): 32 (Total time to include review of medical records, physical exam, goals of care conversation with patient and and case discussion with case briefer.) Face to Face Time (mins): 22 >50% Counseling/Coord of Care: Yes Attestation To help prompt me to consider important information that might be impacting today's encounter and assessment, information from prior notes written by myself or my colleagues may have been "brought forward" into today's note. My signature on this note, however, is an attestation that I personally performed the exam, history, and/or decision-making noted today, and, unless otherwise indicated, the interactions with patient, family, and staff as well as the review of records all occurred today. I also attest that the listed assessment and stated plan reflect my best clinical judgment today based on the combination of historical information, prior notes, and today's exam/ interactions. When time spent is documented, it refers only to time spent today by the signer, or if indicated, combined time spent today by collaborating physician/nurse practitioner. Ashley Chapa Oct 20, 2016 11:42
[2016-10-20 12:00] VITALS: BP 148/74; PULSE 117; RESP 18; TEMP 97.7; O2SAT 98
--- NOTE | 2016-10-20 15:47 | PD.CARD.PN ---
Subjective Subjective Remarks Denies CP or excessive dyspnea, on O2 Objective Vital Signs / I&O Vital Signs Date Time Temp Pulse Resp B/P Pulse Ox O2 Delivery O2 Flow Rate FiO2 10/20/16 12:00 97.7 117 18 148/74 98 10/20/16 08:19 95 Nasal Cannula 3.00 10/20/16 08:00 3 Nasal Cannula 10/20/16 08:00 97.9 101 18 133/61 95 10/20/16 04:00 97.8 99 20 128/58 95 10/20/16 04:00 Nasal Cannula 3.00 Humidified 10/20/16 00:00 97.4 102 18 159/72 91 10/20/16 00:00 Nasal Cannula 3.00 Humidified 10/19/16 20:48 95 Nasal Cannula 3.00 10/19/16 20:40 Nasal Cannula 3.00 Humidified 10/19/16 20:00 97.3 114 18 158/73 90 10/19/16 16:00 98.1 114 17 129/60 100 10/19/16 16:00 Nasal Cannula 2.00 10/19/16 16:00 97.3 114 18 157/80 96 10/19/16 16:00 114 I/O 10/19/16 10/19/16 10/19/16 10/20/16 10/20/16 10/20/16 07:00 15:00 23:00 07:00 15:00 23:00 Intake Total 318 ml 818 ml 800 ml 240 ml Output Total 550 ml 950 ml 700 ml 200 ml Balance -232 ml -132 ml 100 ml 40 ml Intake Oral 240 ml 600 ml 800 ml 240 ml IV Total 78 ml 218 ml Output Urine Total 550 ml 950 ml 700 ml 200 ml # Bowel Movements 0 1 0 Physical Exam GENERAL: In NAD, on O2 SKIN: Warm and dry. HEAD: Normocephalic. EYES: No scleral icterus. No injection or drainage. NECK: Supple, trachea midline. No JVD or lymphadenopathy. CARDIOVASCULAR: Regular rate and rhythm without murmurs, gallops, or rubs. RESPIRATORY: Breath sounds decreased, equal bilaterally. No accessory muscle use. GASTROINTESTINAL: Abdomen soft, non-tender, nondistended. MUSCULOSKELETAL: No cyanosis, or edema. Laboratory Laboratory Tests Test 10/20/16 05:32 White Blood Count 4.5 TH/MM3 Red Blood Count 2.81 MIL/MM3 Hemoglobin 9.7 GM/DL Hematocrit 28.9 % Mean Corpuscular Volume 102.9 FL Mean Corpuscular Hemoglobin 34.4 PG Mean Corpuscular Hemoglobin 33.4 % Concent Red Cell Distribution Width 13.3 % Platelet Count 123 TH/MM3 Mean Platelet Volume 9.5 FL Neutrophils (%) (Auto) 51.1 % Lymphocytes (%) (Auto) 40.3 % Monocytes (%) (Auto) 7.2 % Eosinophils (%) (Auto) 1.2 % Basophils (%) (Auto) 0.2 % Neutrophils # (Auto) 2.3 TH/MM3 Lymphocytes # (Auto) 1.8 TH/MM3 Monocytes # (Auto) 0.3 TH/MM3 Eosinophils # (Auto) 0.1 TH/MM3 Basophils # (Auto) 0.0 TH/MM3 CBC Comment DIFF FINAL Differential Comment Sodium Level 143 MEQ/L Potassium Level 4.0 MEQ/L Chloride Level 106 MEQ/L Carbon Dioxide Level 31.3 MEQ/L Anion Gap 6 MEQ/L Blood Urea Nitrogen 5 MG/DL Creatinine 0.52 MG/DL Estimat Glomerular Filtration 118 ML/MIN Rate Random Glucose 77 MG/DL Calcium Level 8.2 MG/DL Phosphorus Level 3.0 MG/DL Magnesium Level 1.5 MG/DL Imaging Last Impressions Chest X-Ray 10/19/16 0000 Signed Impressions: Service Date/Time: Wednesday, October 19, 2016 13:12 - CONCLUSION: No acute cardiopulmonary disease identified. Zander Luciano MD Head CT 10/12/16 0145 Signed Impressions: Service Date/Time: Wednesday, October 12, 2016 02:33 - CONCLUSION: 1. No acute intracranial abnormalities. Cortical atrophic changes. Dm Cantrell MD Chest CT 10/12/16 0000 Signed Impressions: Service Date/Time: Wednesday, October 12, 2016 02:35 - CONCLUSION: 1. Moderate emphysema. 2. Endotracheal tube and nasogastric tube in satisfactory position. 3. Scattered airspace disease in the lungs with peribronchial thickening, mild bronchiectasis and bronchiolectasis with distal mucoid plugging. Primary differential diagnosis is chronic atypical mycobacterial infection or repeated aspiration. Dm Cantrell MD Abdomen/Pelvis CT 10/12/16 0000 Signed Impressions: Service Date/Time: Wednesday, October 12, 2016 02:35 - CONCLUSION: 1. No acute findings within the abdomen or pelvis. Diverticulosis. Nonobstructing left renal calculi. NG tip in stomach. Elmore catheter in bladder. Dm Cantrell MD Assessment and Plan Problem List: (1) Sepsis (2) Cardiac arrest (3) COPD (chronic obstructive pulmonary disease) (4) Hypertension, benign Assessment and Plan Overall improved. Continue current program. DC home as planned. 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 De La Rosa as planned. Problem Qualifiers (1) Sepsis: Qualified Code: A41.9 - Sepsis, due to unspecified organism Vicki Dubois MD Oct 20, 2016 15:47
[2016-11-02] MEDS ORDERED: SUMA85TA PO (23:02)
[2016-11-02] MEDS ORDERED: BETH25TA2 PO (23:02)
[2016-11-02] MEDS ORDERED: PEPP90CA PO (23:02)
[2016-11-02] MEDS ORDERED: METH1TAB2 PO (23:02)
[2016-11-02] MEDS ORDERED: METO50TA PO (23:02)
[2016-11-02] MEDS ORDERED: ADVA250A INH (23:02)
[2016-11-02] MEDS ORDERED: SOMA350T PO (23:02)
[2016-11-02] MEDS ORDERED: TRAZ50TA12 PO (23:02)
[2016-11-02] MEDS ORDERED: HYDR500C PO (23:02)
[2016-11-02] MEDS ORDERED: OXYC15TA PO (23:02)
[2016-11-02] MEDS ORDERED: OMEP40CA2 PO (23:02)
[2016-11-02] MEDS ORDERED: TEMA30CA PO (23:02)
[2016-11-02] MEDS ORDERED: CREON24 PO (23:02)
[2016-11-02] MEDS ORDERED: QUET1TAB7 PO (23:02)
[2016-11-02] MEDS ORDERED: ZOFR8TAB PO (23:02)
[2016-11-02] MEDS ORDERED: ASPI81TA81 (23:02)
[2016-11-02] MEDS ORDERED: ESTR1 PO (23:02)
[2016-11-02] MEDS ORDERED: OXYC40TA20 PO (23:02)
--- NOTE | 2016-11-09 12:50 | MB ---
cc: SOPHIA GONZALES M.D., MARK B. M.D. DATE OF CONSULTATION: 11/09/2016 REASON FOR CONSULTATION: Chest pain. HISTORY Ms. Robertson is a 66-year-old white female with a history of hypertension, hyperlipidemia, coronary artery disease, cardiac arrest, and chronic pain with opioid dependence and mild proliferative disorder who was admitted through the emergency room yesterday for treatment for evaluation of chest and abdominal discomfort. At this time it is very difficult to obtain any history from the patient. She is very lethargic although the nursing staff says she has not received any pain medication or anxiolytics. There are no family members currently present and the information is obtained from the current and previous records. She currently denies any chest discomfort. She does not appear to be in any distress. PAST MEDICAL HISTORY: Her past history is as mentioned above. In addition she has had hypertension, hyperlipidemia, abnormal EKG, PEA, cardiac arrest, kidney stones, COPD, emphysema, myeloproliferative disorder, gastroparesis, irritable bowel, pancreatitis, GERD, hiatal hernia. There is no history of stroke. PAST SURGICAL HISTORY Cardiac catheterization. According to her current chart reportedly done a week or so ago. Those records are not available here. I suspect they may have been done at [facility] and they are not currently available. The current record indicates that she did not require any coronary intervention. She is being managed for her chest discomfort medically. ADDITIONAL PAST SURGICAL HISTORY 1. Tubal ligation 2. Cervical fusion 3. Inguinal hernia repair. 4. Left breast biopsy. 5. Hysterectomy. 6. Cholecystectomy. 7. Cystoscopy. 8. Lithotripsy. ALLERGIES BACTRIM, INDOCIN, PENICILLIN, PROCARDIA, LANOXIN. CURRENT MEDICATIONS 1. Lipase/Protease/amylase, one cap t.i.d. 2. Hydrea 500 mg daily. 3. Seroquel 25 mg daily. 4. Symbicort 2 puffs b.i.d. 5. Protonix 40 mg daily. 6. Roxicodone 15 mg q4 hours p.r.n. 7. Metoprolol tartrate 50 mg t.i.d. 8. Desyrel 50 mg at bedtime 9. ProAir. 10. Albuterol sulfate 1 puff q4 hours p.r.n. 11. Soma 350 mg q.i.d. p.r.n. 12. Restoril 30 mg p.r.n. 13. Aspirin 325 mg given on arrival. FAMILY HISTORY: Family history is noncontributory. SOCIAL HISTORY The patient smokes one pack of cigarettes a day, was smoking up to two packs a day since she was 12 years old, denies any alcohol or illicit drug use. REVIEW OF SYSTEMS: Review of systems is really not obtainable or reliable at this time. PHYSICAL EXAMINATION A patient appearing older than stated age. No distress. Very lethargic and somnolent. Vital signs: Blood pressure 172/82, heart rate is 75 and regular, respiratory rate 18, temperature 98.2, oxygen saturation is 94% on 2 liters nasal cannula. Head is normocephalic and atraumatic. Pupils equal and reactive to light. Sclerae anicteric. Extraocular movements intact. Neck is supple. There is no adenopathy. No jugular venous distension at 30 degrees. Carotid upstrokes normal. No bruits. Thyroid exam normal. Lungs: Clear with decreased breath sounds bilaterally. Heart: PMI not displaced. S1-S2 normal. No murmurs, gallops, clicks or rubs heard. Abdomen: Bowel sounds present, soft, nontender. No hepatosplenomegaly, masses or bruits. Extremities: No cyanosis, clubbing or edema. Perfusion is adequate. Neurologic: Exam is nonfocal. The patient is arousable and is moving all extremities. EKG shows a sinus rhythm and anterolateral T-wave abnormalities with deep T-wave inversions consider ischemia. Abnormal EKG but there has been really no change on serial EKGs since admission yesterday. Comparing these EKGs to an EKG available from November 08, 2016 there does not appear to be any significant change. She had a CT angiogram performed today. No evidence of pulmonary embolism, COPD and bullous emphysema throughout both lungs, mild basilar infiltrates suggestive of pneumonia. Chest x-ray showed no acute disease. LABORATORY DATA CBC: white count 6.1, hemoglobin 11.5, platelet count 180,000. Coags were normal. Chemistries, electrolytes are normal. BUN 8, creatinine 0.57, AST 19, cardiac enzymes are negative x2 sets thus far. IMPRESSION 1. Reported chest pain currently asymptomatic. 2. History of angina and possible ASHD. 3. Chronic pain and opioid dependent. 4. Reduced mental status, somnolence and lethargy. 5. Hypertension, may need more aggressive control. 6. She has COPD secondary to tobacco use, continues to smoke. RECOMMENDATIONS: She will continue to be observed overnight tonight for continued evaluation of her reported chest discomfort. Her EKG is abnormal but without any significant change compared to her most prior admission EKG earlier this month. Cardiac enzymes are negative so far. She has a third set pending. Observe on telemetry overnight. Resume low-dose aspirin and her home medications. Dr. Gonzales will follow up with her tomorrow with further information from his records, and further recommendations to follow. Thank you for allowing us to participate in the care of this patient. MD JADIEL Urbina/YASH /11:53 AM /12:34 PM [place]
== END 2016-10-20 15:04 | disposition home health service (06) | DRG 917 ==
LOC: NEPE 01:37 → NEDA 02:47 → N03B 07:59 → N04B 10-19 16:31
PROVIDERS: ADMIT Hospitalist; ATTEND Hospitalist
PROC: 5A1945Z Respiratory Ventilation, 24-96 Consecutive Hours (ICD-10-PCS; principal; 2016-10-12)
PROC: 5A12012 Performance of Cardiac Output, Single, Manual (ICD-10-PCS; 2016-10-12)
PROC: 0BH17EZ Insertion of Endotracheal Airway into Trachea, Via Natural or Artificial Opening (ICD-10-PCS; 2016-10-12)
PROC: 05H533Z Insertion of Infusion Device into Right Subclavian Vein, Percutaneous Approach (ICD-10-PCS; 2016-10-12)
PROC: 0T9B70Z Drainage of Bladder with Drainage Device, Via Natural or Artificial Opening (ICD-10-PCS; 2016-10-12)
PROC: 5A1945Z Respiratory Ventilation, 24-96 Consecutive Hours (ICD-10-PCS; 2016-10-14)
PROC: 0BH17EZ Insertion of Endotracheal Airway into Trachea, Via Natural or Artificial Opening (ICD-10-PCS; 2016-10-14)
DX: T40.2X1A Poisoning by other opioids, accidental (unintentional), initial encounter (principal); J96.01 Acute respiratory failure with hypoxia; I46.9 Cardiac arrest, cause unspecified; R65.21 Severe sepsis with septic shock; J69.0 Pneumonitis due to inhalation of food and vomit; A41.9 Sepsis, unspecified organism; G93.41 Metabolic encephalopathy; J96.02 Acute respiratory failure with hypercapnia; N39.0 Urinary tract infection, site not specified; N17.9 Acute kidney failure, unspecified; B19.10 Unspecified viral hepatitis B without hepatic coma; D47.1 Chronic myeloproliferative disease; D61.818 Other pancytopenia; K86.1 Other chronic pancreatitis; N20.1 Calculus of ureter; J44.1 Chronic obstructive pulmonary disease with (acute) exacerbation; K31.84 Gastroparesis; N20.0 Calculus of kidney; E86.0 Dehydration; F17.210 Nicotine dependence, cigarettes, uncomplicated; I50.9 Heart failure, unspecified; I11.0 Hypertensive heart disease with heart failure; K57.90 Diverticulosis of intestine, part unspecified, without perforation or abscess without bleeding; I48.0 Paroxysmal atrial fibrillation; E78.5 Hyperlipidemia, unspecified; K44.9 Diaphragmatic hernia without obstruction or gangrene; K21.9 Gastro-esophageal reflux disease without esophagitis; K58.9 Irritable bowel syndrome, unspecified; G47.00 Insomnia, unspecified; G89.4 Chronic pain syndrome; M54.2 Cervicalgia; G43.909 Migraine, unspecified, not intractable, without status migrainosus; Z87.440 Personal history of urinary (tract) infections; R47.81 Slurred speech; Z91.81 History of falling; R32 Unspecified urinary incontinence; Z86.73 Personal history of transient ischemic attack (TIA), and cerebral infarction without residual deficits; K59.09 Other constipation; Z51.5 Encounter for palliative care; Y92.091 Bathroom in other non-institutional residence as the place of occurrence of the external cause; R41.3 Other amnesia; Z74.01 Bed confinement status; D45 Polycythemia vera; B19.20 Unspecified viral hepatitis C without hepatic coma; E86.1 Hypovolemia
CPT/HCPCS: 31500; 36556; 36600; 51702; 70450; 71010; 71250; 74176; 80048; 80053; 80202; 80307; 81001; 82435; 82550; 82565; 82607; 82746; 82805; 82947; 83605; 83690; 83735; 84100; 84132; 84155; 84295; 84443; 84484; 84520; 85007; 85025; 85027; 85610; 86022; 87040; 87070; 87086; 87205; 87641; 93005; 93306; 94002; 94003; 94150; 94640; 94664; 94667; 94668; C9113; J0131; J0171; J0330; J0610; J1170; J1265; J1630; J1644; J1652; J1940; J1956; J2060; J2250; J2405; J2543; J2765; J3370; J3410; J3475; J3480; J7030; J7050; J7120; J7121; J7626

== ENCOUNTER 2016-11-02 22:20 | Emergency (ER) | payer MEDICARE, OTHER ==
[~2016-11-02] VITALS: Ht 154.9 cm; Wt 58.1 kg
[~2016-11-02 22:20] MED LIST changes: -CARV12.52 PO; +DILT31TA PO; +GETGO ROLLING W1 MI1; +LEVO750T3 PO; -OXYC-406 PO; +QUET1TAB7 PO
[2016-11-02 22:24] VITALS: BP 143/87; PULSE 92; RESP 20; TEMP 98.2; O2SAT 91
--- NOTE | 2016-11-02 22:46 | PD ---
HPI Chief Complaint: Complaint Time Seen by Provider: 22:27 Travel History International Travel<30 days: No Contact w/Intl Traveler<30days: No Traveled to known affect area: No History of Present Illness HPI 66-year-old female complains of urinary bladder pressure and urinary retention. Patient states that she urinated only once all day today. Patient states that she is having urinary retention with increase bladder pressure since this morning. Patient has history of recurrent UTI. Patient denies any headache. Patient denies any chest pain. Patient states that he has history COPD and has increasing wheezing this evening. Patient denies any shortness of breath. Patient denies abdominal pain. Patient denies any nausea vomiting diarrhea. Patient denies any fever chills. Patient denies any back pain. Patient was admitted to [facility] October 12 and discharged October 20 for respiratory failure, septic shock, cardiac arrest , COPD, abdominal pain. Patient has history of hypertension, chronic pain on long-term opiates. Patient was admitted to [facility] in [facility] about a week ago and had cardiac Catheter which showed minimal disease and was treated medically. Patient's states the patient does not like to use nebulizer treatment for her COPD at home. Patient used nebulizer treatment probably twice a day as needed. PFSH Past Medical History Hx Anticoagulant Therapy: Yes (ASA) Anemia: Yes (MYLOPROLIFERATIVE BLOOD DISORDER) Arthritis: Yes Asthma: Yes Atrial Fibrillation: Yes Autoimmune Disease: No Blood Disorders: No Anxiety: Yes Depression: No Heart Rhythm Problems: Yes (tachy, hx of heart block, arrhythmia) Cancer: No Cardiovascular Problems: Yes High Cholesterol: Yes Chemotherapy: No Chest Pain: No Congestive Heart Failure: Yes COPD: Yes Cerebrovascular Accident: No Diabetes: No Diminished Hearing: No Diverticulitis: Yes Endocrine: No Gastrointestinal Disorders: Yes (gastroparesis, colitis) GERD: Yes Glaucoma: No Genitourinary: Yes (over active bladder, chronic uti's) Headaches: No Hepatitis: Yes (HEP-B) Hiatal Hernia: Yes Heparin Induced Thrombocytopen: No Hypertension: Yes Immune Disorder: No Implanted Vascular Access Dvce: No Kidney Stones: No Musculoskeletal: No Neurologic: No Psychiatric: No Reproductive: No Respiratory: Yes (COPD) Migraines: No Myocardial Infarction: No Pancreatitis: Yes Radiation Therapy: No Renal Failure: No Seizures: No Sickle Cell Disease: No Sleep Apnea: No Thyroid Disease: No Ulcer: No Menopausal: Yes Tubal Ligation: Yes Past Surgical History Abdominal Surgery: Yes (hernia x3 lap max) AICD: No Arteriovenous Shunt: No Cardiac Surgery: No Cholecystectomy: Yes Ear Surgery: No Endocrine Surgery: No Eye Surgery: No Genitourinary Surgery: Yes (bladder suspension) Gynecologic Surgery: Yes Hysterectomy: Yes Insulin Pump: No Joint Replacement: No Neurologic Surgery: No Oral Surgery: No Pacemaker: No Thoracic Surgery: No Other Surgery: Yes Social History Alcohol Use: Yes Tobacco Use: Yes (1 ppd) Substance Use: No Allergies-Medications (Allergen,Severity, Reaction): Coded Allergies: Bactrim (Verified Allergy, Severe, "VOMITING", 10/06/16) Inderal (Verified Allergy, Severe, "CAUSES ASTHMA ATTACK", 10/06/16) Indocin (Verified Allergy, Severe, "NAUSEA", 10/06/16) Penicillin (Verified Allergy, Severe, "HEART FAILURE", 10/06/16) Procardia (Verified Allergy, Severe, "RAPID HEART BEAT", 10/06/16) states does not have a allergy to this medication carlos Grullon 08/15/16 Lanoxin (Verified Adverse Reaction, Unknown, Arrhythmias, 10/06/16) Reported Meds & Prescriptions Reported Meds & Active Scripts Active Reported Quetiapine (Quetiapine Fumarate) 25 Mg Tab 25 Mg PO DAILY Estrace (Estradiol) 1 Mg Tab 1 Mg PO DAILY Methenamine Hippurate 1 Gm Tab 1 Gm PO BID Advair Diskus Inh (Fluticasone-Salmeterol Inh) 250-50 Mcg/Blist Aer 1 Puff INH BID Rinse mouth after use. Creon (Amylase/Lipase/Protease) 24,000-76,000-120,000 Units Cap 24,000 Cap PO TIDPC Ibgard (Peppermint Oil) 90 Mg Capdr...er 90 Mg PO DAILY Omeprazole 40 Mg Cap 40 Mg PO DAILY Zofran (Ondansetron HCl) 8 Mg Tab 8 Mg PO TID Bethanechol 25 Mg Tab 25 Mg PO QID Hydrea (Hydroxyurea) 500 Mg Cap 500 Mg PO DAILY Soma (Carisoprodol) 350 Mg Tab 350 Mg PO QID PRN Oxycodone (Oxycodone HCl) 15 Mg Tab 15 Mg PO Q4H PRN Oxycontin (Oxycodone HCl) 40 Mg Tab.er.12h 40 Mg PO TID Temazepam 30 Mg Cap 30 Mg PO HS PRN Trazodone (Trazodone HCl) 50 Mg Tab 50 Mg PO HS Fluconazole 100 Mg Tab 100 Mg PO BID Metoprolol Tartrate 50 Mg Tab 50 Mg PO BID Aspir-81 (Aspirin) 81 Mg Tabdr Treximet (Sumatriptan-Naproxen) 85-500 Mg Tab 1 Tab PO ONCE PRN May take a second dose after 2 hours if needed. Maximum 2 tabs in 24 hour period. Ventolin Hfa 18 GM Inh (Albuterol Sulfate) 90 Mcg/Act Aer 1 Puff INH Q4H PRN Review of Systems General / Constitutional: No: Fever Eyes: No: Visual changes HENT: No: Headaches Cardiovascular: No: Chest Pain or Discomfort Respiratory: Positive: Wheezing, No: Shortness of Breath Gastrointestinal: No: Abdominal Pain Genitourinary: Positive: Decreased Urinary Output, No: Dysuria Musculoskeletal: No: Pain Skin: No Rash Neurologic: No: Weakness Psychiatric: No: Depression Endocrine: No: Polydipsia Hematologic/Lymphatic: No: Easy Bruising Physical Exam Narrative GENERAL: Well-nourished, well-developed patient. SKIN: Focused skin assessment warm/dry. HEAD: Normocephalic. EYES: No scleral icterus. No injection or drainage. NECK: Supple, trachea midline. No JVD or lymphadenopathy. CARDIOVASCULAR: Regular rate and rhythm without murmurs, gallops, or rubs. RESPIRATORY: Breath sounds equal bilaterally. No accessory muscle use. Patient has mild to moderate expiratory wheezes bilaterally. Few rhonchi at the bases. GASTROINTESTINAL: Abdomen soft, non-tender, nondistended. MUSCULOSKELETAL: No cyanosis, or edema. BACK: Nontender without obvious deformity. No CVA tenderness. Neurologic exam normal. Data Data Last Documented VS Vital Signs Date Time Temp Pulse Resp B/P Pulse Ox O2 Delivery O2 Flow Rate FiO2 11/02/16 23:29 100 22 160/91 95 11/02/16 23:14 Nasal Cannula 3 11/02/16 22:24 98.2 Orders Urinalysis - C+S If Indicated (11/02/16 22:39) Urinary Catheter Insert/Apply (11/02/16 22:39) Ecg Monitoring (11/02/16 22:40) Oximetry (11/02/16 22:40) Chest, Single Ap (11/02/16 22:40) Albuterol-Ipratropium Neb (Duoneb Neb) (11/02/16 22:45) Labs Laboratory Tests Test 11/02/16 22:10 Urine Collection Type CATH Urine Color YELLOW Urine Turbidity CLEAR Urine pH 6.0 Urine Specific [place] 1.017 Urine Protein 30 mg/dL Urine Glucose (UA) NEG mg/dL Urine Ketones NEG mg/dL Urine Occult Blood NEG Urine Nitrite NEG Urine Bilirubin NEG Urine Leukocyte Esterase NEG Urine RBC 0-3 /hpf Urine WBC 3-5 /hpf Urine Squamous Epithelial > 8 /hpf Cells Urine Hyaline Casts 0-2 /lpf Urine Mucus OCC /lpf Microscopic Urinalysis Comment CATH-CULT NOT IND MDM Medical Decision Making Medical Screen Exam Complete: Yes Emergency Medical Condition: Yes Interpretation(s) 23:36 PM. Chest x-ray shows no acute cardiopulmonary disease. Differential Diagnosis Differential diagnosis including urinary retention, obstruction, UTI, acute exacerbation COPD, bronchitis, pneumonia. Narrative Course 66-year-old female with urinary retention and wheezing. History of COPD. Diagnosis Primary Impression: Bladder spasm Additional Impression: COPD with acute exacerbation Patient Instructions: General Instructions Additional Instructions: Continue with albuterol treatment as needed for shortness of breath and wheezing. Follow-up with personal physician and urologist. Return as needed. Med/Other Pt SpecificInfo: No Change to Meds Disposition: 01 DISCHARGE HOME Condition: Stable Cristi Avendaño MD Nov 02, 2016 22:46
[2016-11-02] MEDS: RESP: ALBUTEROL 2.5 MG/IPRATROPIUM 0.5 MG NEB (SCH) INH ×2 (22:50→23:02)
[2016-11-02] MEDS ORDERED: TEMA30CA PO ×2 (23:02)
[2016-11-02] MEDS ORDERED: ZOFR8TAB PO ×2 (23:02)
[2016-11-02] MEDS ORDERED: OXYC15TA PO ×2 (23:02)
[2016-11-02] MEDS ORDERED: PEPP90CA PO ×2 (23:02)
[2016-11-02] MEDS ORDERED: BETH25TA2 PO ×2 (23:02)
[2016-11-02] MEDS ORDERED: TRAZ50TA12 PO ×2 (23:02)
[2016-11-02] MEDS ORDERED: CREON24 PO ×2 (23:02)
[2016-11-02] MEDS ORDERED: SUMA85TA PO ×2 (23:02)
[2016-11-02] MEDS ORDERED: OMEP40CA2 PO ×2 (23:02)
[2016-11-02] MEDS ORDERED: ASPI81TA81 ×2 (23:02)
[2016-11-02] MEDS ORDERED: METH1TAB2 PO ×2 (23:02)
[2016-11-02] MEDS ORDERED: FLUC100T2 PO (23:02)
[2016-11-02] MEDS ORDERED: QUET1TAB7 PO ×2 (23:02)
[2016-11-02] MEDS ORDERED: ADVA250A INH ×2 (23:02)
[2016-11-02] MEDS ORDERED: SOMA350T PO ×2 (23:02)
[2016-11-02] MEDS ORDERED: METO50TA PO ×2 (23:02)
[2016-11-02] MEDS ORDERED: OXYC40TA20 PO ×2 (23:02)
[2016-11-02] MEDS ORDERED: HYDR500C PO ×2 (23:02)
[2016-11-02] MEDS ORDERED: ESTR1 PO ×2 (23:02)
[2016-11-02 23:14] VITALS: BP 160/91; PULSE 100; RESP 20; O2SAT 95
[2016-11-02 23:19] LABS: BLOOD, URINE NEG (NEG); GLUCOSE,URINE NEG (NEG); KETONE, URINE NEG (NEG); NITRITE,URINE NEG (NEG)
[2016-11-02 23:29] VITALS: BP 160/91; PULSE 100; RESP 22; O2SAT 95
--- NOTE | 2016-11-02 23:30 | RADHPO ---
EXAM DATE/TIME: 11/02/2016 23:15 [facility] COMPARISON: No previous studies available for comparison. INDICATIONS : Short of breath. MEDICAL HISTORY : Chronic obstructive pulmonary disease. SURGICAL HISTORY : None. ENCOUNTER: Initial ACUITY: 1 day PAIN SCORE: 3/10 LOCATION: Bilateral chest FINDINGS: A single view of the chest demonstrates the lungs to be symmetrically aerated without evidence of mas s, infiltrate or effusion. The cardiomediastinal contours are unremarkable. Osseous structures are intact. The right subclavian central venous catheter seen previously has been removed. CONCLUSION: No acute cardiopulmonary disease demonstrated. Mayur Andino MD on November 02, 2016 at 23:28 Board Certified Radiologist. This report was verified electronically.
[2016-11-02 23:46] LABS: METHOD OF COLLECTION CATH; SQUAMOUS EPITHELIAL CELL URINE > 8 /hpf (0-5); URINE COLOR YELLOW (YELLW/STRAW)
[2016-11-02 23:47] LABS: HYALINE CAST, URINE 0-2 /lpf (RARE); MUCUS URINE OCC /lpf (OCC); RBC, URINE 0-3 /hpf (0-3)
[2016-11-02 23:49] LABS: COMMENT (UR) CATH-CULT NOT IND; CULTURE IF INDICATED CATH CULTURE NOT IND
[2016-11-03 00:28] VITALS: BP 158/76
== END 2016-11-03 00:32 | disposition home or self-care (01) ==
LOC: PHED 22:20
DX: N32.89 Other specified disorders of bladder (principal); J44.1 Chronic obstructive pulmonary disease with (acute) exacerbation; J45.909 Unspecified asthma, uncomplicated; F17.200 Nicotine dependence, unspecified, uncomplicated
CPT/HCPCS: 71010; 81001; 94640; 94664; 99284; P9612

== ENCOUNTER 2016-11-05 17:41 | Emergency (ER) | payer MEDICARE, OTHER ==
[2016-11-05] VITALS (8 sets, daily range): BP systolic 134–163; BP diastolic 73–84; PULSE 72–79; RESP 16–18; TEMP 98.2; O2SAT 90–100
[~2016-11-05] VITALS: Ht 154.9 cm; Wt 55.7 kg
[~2016-11-05 17:41] MED LIST changes: -ADVA100A INH; +ADVA250A INH; -ASPI1TAB69 PO; +ASPI81TA81; -CHOL4POW3 PO; -CREO3000 PO; +CREON24 PO; -DILT31TA PO; -ENAL10TA PO; +ESTR1 PO; -ESTR42.5V VAGINAL; +FLUC100T2 PO; -GETGO ROLLING W1 MI1; +HYDR500C PO; -HYDR500C2 PO; -LACTCAP8 PO; -LEVO750T3 PO; +METO50TA PO; +OXYC40TA20 PO; -OXYGEN NAS.CANULA; +PEPP90CA PO; -POTA20TA5 PO; -[UNRECOGNIZED DRUG - OTHER] PO
[2016-11-05] MEDS ORDERED: SODIUM CHLORIDE 0.9% FLUSH 10 ML FLUSH IV FLUSH PRN (18:30)
--- NOTE | 2016-11-05 18:34 | PD ---
HPI Chief Complaint: Complaint Time Seen by Provider: 18:05 Travel History International Travel<30 days: No Contact w/Intl Traveler<30days: No Traveled to known affect area: No History of Present Illness HPI 66-year-old female with history of COPD on home O2, encephalopathy, frequent UTIs, here with significant other for evaluation of dysuria and reporting that she is unable to urinate. tells me that the patient has been urinating throughout the day today. No fevers. No vomiting. She is having lower abdominal/suprapubic discomfort. Since she was admitted sometime last year the patient has been having memory issues and is not acting like herself. She is scheduled for an LP for this Thursday. PFSH Past Medical History Hx Anticoagulant Therapy: Yes (ASA) Anemia: Yes Arthritis: Yes Asthma: Yes Atrial Fibrillation: Yes Autoimmune Disease: No Blood Disorders: Yes (mpd) Anxiety: Yes Depression: Yes Heart Rhythm Problems: Yes Cancer: No Cardiovascular Problems: Yes (cardiac arrest 1 week ago) High Cholesterol: Yes Chemotherapy: Yes Chest Pain: No Congestive Heart Failure: Yes COPD: Yes Cerebrovascular Accident: Yes (spinal stroke) Coronary Artery Disease: Yes Diabetes: No Diminished Hearing: No Diverticulitis: Yes Endocrine: No Gastrointestinal Disorders: Yes (gastroperesis, ibs, acid reflux) GERD: Yes Glaucoma: No Genitourinary: Yes Headaches: No Hepatitis: Yes (HEP-B) Hiatal Hernia: Yes Heparin Induced Thrombocytopen: No Hypertension: Yes Immune Disorder: No Implanted Vascular Access Dvce: No Kidney Stones: Yes Medical other: Yes (poor memory) Musculoskeletal: No Neurologic: No Psychiatric: No Reproductive: No Respiratory: Yes (COPD) Migraines: Yes Myocardial Infarction: No Pancreatitis: Yes Radiation Therapy: No Renal Failure: No Seizures: No Sickle Cell Disease: No Sleep Apnea: No Thyroid Disease: No Ulcer: No Tetanus Vaccination: > 5 Years Influenza Vaccination: Yes ?: Not Menopausal: Yes Tubal Ligation: Yes Past Surgical History Abdominal Surgery: Yes AICD: No Arteriovenous Shunt: No Cardiac Surgery: Yes Cholecystectomy: Yes Ear Surgery: No Endocrine Surgery: No Eye Surgery: No Genitourinary Surgery: Yes (3 inguinal hernias, bladder sling) Gynecologic Surgery: Yes Hysterectomy: Yes Insulin Pump: No Joint Replacement: No Neurologic Surgery: No Oral Surgery: No Pacemaker: No Thoracic Surgery: No Other Surgery: Yes Social History Alcohol Use: No Tobacco Use: Yes (1 ppd) Substance Use: No Allergies-Medications (Allergen,Severity, Reaction): Coded Allergies: Bactrim (Verified Allergy, Severe, "VOMITING", 11/05/16) Inderal (Verified Allergy, Severe, "CAUSES ASTHMA ATTACK", 11/05/16) Indocin (Verified Allergy, Severe, "NAUSEA", 11/05/16) Penicillin (Verified Allergy, Severe, "HEART FAILURE", 11/05/16) Procardia (Verified Allergy, Severe, "RAPID HEART BEAT", 11/05/16) states does not have a allergy to this medication Yadi,rn 08/15/16 Lanoxin (Verified Adverse Reaction, Unknown, Arrhythmias, 11/05/16) Reported Meds & Prescriptions Reported Meds & Active Scripts Active Reported Quetiapine (Quetiapine Fumarate) 25 Mg Tab 25 Mg PO DAILY Estrace (Estradiol) 1 Mg Tab 1 Mg PO DAILY Methenamine Hippurate 1 Gm Tab 1 Gm PO BID Advair Diskus Inh (Fluticasone-Salmeterol Inh) 250-50 Mcg/Blist Aer 1 Puff INH BID Rinse mouth after use. Creon (Amylase/Lipase/Protease) 24,000-76,000-120,000 Units Cap 24,000 Cap PO TIDPC Ibgard (Peppermint Oil) 90 Mg Capdr...er 90 Mg PO DAILY Omeprazole 40 Mg Cap 40 Mg PO DAILY Zofran (Ondansetron HCl) 8 Mg Tab 8 Mg PO TID Bethanechol 25 Mg Tab 25 Mg PO QID Hydrea (Hydroxyurea) 500 Mg Cap 500 Mg PO DAILY Soma (Carisoprodol) 350 Mg Tab 350 Mg PO QID PRN Oxycodone (Oxycodone HCl) 15 Mg Tab 15 Mg PO Q4H PRN Oxycontin (Oxycodone HCl) 40 Mg Tab.er.12h 40 Mg PO TID Temazepam 30 Mg Cap 30 Mg PO HS PRN Trazodone (Trazodone HCl) 50 Mg Tab 50 Mg PO HS Metoprolol Tartrate 50 Mg Tab 50 Mg PO BID Aspir-81 (Aspirin) 81 Mg Tabdr Treximet (Sumatriptan-Naproxen) 85-500 Mg Tab 1 Tab PO ONCE PRN May take a second dose after 2 hours if needed. Maximum 2 tabs in 24 hour period. Ventolin Hfa 18 GM Inh (Albuterol Sulfate) 90 Mcg/Act Aer 1 Puff INH Q4H PRN Review of Systems Except as stated in HPI: all other systems reviewed are Neg Physical Exam Narrative GENERAL: Well-developed, well-nourished, awake, alert, elderly appearing female , no acute distress. SKIN: Focused skin assessment warm/dry. HEAD: Atraumatic. Normocephalic. EYES: Pupils equal and round. No scleral icterus. No injection or drainage. ENT: Mucous membranes pink and moist. NECK: No nuchal rigidity. CARDIOVASCULAR: Regular rate and rhythm. RESPIRATORY: No accessory muscle use. Clear to auscultation. Breath sounds equal bilaterally. GASTROINTESTINAL: Abdomen soft, nondistended. Moderate suprapubic tenderness without peritoneal signs. Normal bowel sounds. MUSCULOSKELETAL: No obvious deformities. No clubbing. No cyanosis. No edema. NEUROLOGICAL: Awake and alert. No obvious cranial nerve deficits. Motor grossly within normal limits. Normal speech. No focal deficits. Data Data Last Documented VS Vital Signs Date Time Temp Pulse Resp B/P Pulse Ox O2 Delivery O2 Flow Rate FiO2 11/05/16 19:15 74 16 162/82 97 Nasal Cannula 2 11/05/16 17:52 98.2 Orders Complete Blood Count With Diff (11/05/16 18:17) Comprehensive Metabolic Panel (11/05/16 18:17) Urinalysis - C+S If Indicated (11/05/16 18:17) Ct Abd/Pel W Iv Contrast(Rout) (11/05/16 18:17) Iv Access Insert/Monitor (11/05/16 18:17) Ecg Monitoring (11/05/16 18:17) Oximetry (11/05/16 18:17) Sodium Chloride 0.9% Flush (Ns Flush) (11/05/16 18:30) Cath For Specimen (11/05/16 18:17) Prothrombin Time / Inr (Pt) (11/05/16 18:17) Act Partial Throm Time (Ptt) (11/05/16 18:17) Urine Culture (11/05/16 17:50) Iohexol 350 Inj (Omnipaque 350 Inj) (11/05/16 20:24) Ceftriaxone Inj (Rocephin Inj) (11/05/16 21:00) Labs Laboratory Tests Test 11/05/16 11/05/16 17:50 19:44 Urine Color MARYANN Urine Turbidity CLEAR Urine pH 6.5 Urine Specific [place] 1.018 Urine Protein 300 OR GREATER mg/dL Urine Glucose (UA) 250 mg/dL Urine Ketones TRACE mg/dL Urine Occult Blood NEG Urine Nitrite POS Urine Bilirubin NEG Urine Leukocyte Esterase TRACE Urine RBC 0-3 /hpf Urine WBC 3-5 /hpf Urine Squamous Epithelial 0-5 /hpf Cells Microscopic Urinalysis Comment CATH-CULTURE IND White Blood Count 5.2 TH/MM3 Red Blood Count 3.74 MIL/MM3 Hemoglobin 12.8 GM/DL Hematocrit 38.3 % Mean Corpuscular Volume 102.4 FL Mean Corpuscular Hemoglobin 34.2 PG Mean Corpuscular Hemoglobin 33.4 % Concent Red Cell Distribution Width 14.8 % Platelet Count 204 TH/MM3 Mean Platelet Volume 8.1 FL Neutrophils (%) (Auto) 41.3 % Lymphocytes (%) (Auto) 49.1 % Monocytes (%) (Auto) 7.4 % Eosinophils (%) (Auto) 1.0 % Basophils (%) (Auto) 1.2 % Neutrophils # (Auto) 2.1 TH/MM3 Lymphocytes # (Auto) 2.5 TH/MM3 Monocytes # (Auto) 0.4 TH/MM3 Eosinophils # (Auto) 0.1 TH/MM3 Basophils # (Auto) 0.1 TH/MM3 CBC Comment DIFF FINAL Differential Comment Prothrombin Time 10.7 SEC Prothromb Time International 1.0 RATIO Ratio Activated Partial 28.3 SEC Thromboplast Time Sodium Level 145 MEQ/L Potassium Level 3.7 MEQ/L Chloride Level 105 MEQ/L Carbon Dioxide Level 33.1 MEQ/L Anion Gap 7 MEQ/L Blood Urea Nitrogen 8 MG/DL Creatinine 0.65 MG/DL Estimat Glomerular Filtration 91 ML/MIN Rate Random Glucose 87 MG/DL Calcium Level 8.8 MG/DL Total Bilirubin 0.4 MG/DL Aspartate Amino Transf 19 U/L (AST/SGOT) Alanine Aminotransferase 12 U/L (ALT/SGPT) Alkaline Phosphatase 59 U/L Total Protein 7.5 GM/DL Albumin 3.0 GM/DL [facility] Medical Decision Making Medical Screen Exam Complete: Yes Emergency Medical Condition: Yes Medical Record Reviewed: Yes Differential Diagnosis Colitis, diverticulitis, cystitis, UTI Narrative Course Initial vital signs show heart rate 76, blood pressure 135/76, pulse ox 90% on room air CBC shows WBC 5.2, hemoglobin 12.8, hematocrit 38.3, platelets 204, MCV 102.4. CMP is remarkable for bicarbonate 33.1, otherwise unremarkable. UA: Maryann, clear, greater than 300 protein, 250 glucose, trace ketones, positive nitrites, trace leukocyte esterase. CT abdomen pelvis: CONCLUSION: 1. No acute finding is identified to explain the patient's abdominal pain. There is a small volume of free fluid in the abdomen and pelvis from uncertain etiology. However, it may be related to the liver disease. 2. There is hepatomegaly with a subtle liver changes that may indicate cirrhosis. Additionally, there is stable splenomegaly. 3. Severe atherosclerotic disease with chronic high-grade stenosis or occlusion of the left common iliac artery. Patient and the patient's significant other were made aware of all findings per she is resting comfortably. She states she would like to go home. Her left lower extremity is warm normal capillary refill. She was given a dose of IV Rocephin for her UA findings and will be discharged home with a prescription for Macrobid. She is stable for discharge home with outpatient follow-up with her primary care physician this week. Patient and the patient's significant other were informed on when to return to the emergency department. They verbalize understanding and agreement with plan. Procedures Procedure Narrative Ultrasound-guided peripheral IV: Because of difficult IV access, was asked by my nurse to place a peripheral IV under ultrasound guidance. Using the linear ultrasound probe, a 20-gauge catheter was placed in the right arm by me. Site prepped with ChloraPrep prior to IV insertion. Tolerated well. No complications. Diagnosis Primary Impression: UTI (urinary tract infection) Qualified Code: N39.0 - Urinary tract infection without hematuria, site unspecified Additional Impression: Abdominal pain Qualified Code: R10.9 - Abdominal pain, unspecified location Referrals: Primary Care Physician 3 days Additional Instructions: Follow-up with your primary care physician this week. Return to the emergency department for worsening symptoms or any other concerns. Scripts Nitrofurantoin Monohydrate Macrocrystals (Macrobid)100 Mg Qca750 Mg PO BID 7 Days Ref 0 Prov:Angel Luis Macedo MD 11/05/16 Disposition: DISCHARGE HOME Condition: Stable Angel Luis Macedo MD Nov 05, 2016 18:34
[2016-11-05 19:00] LABS: BLOOD, URINE NEG (NEG); GLUCOSE,URINE 250 mg/dL (NEG); KETONE, URINE TRACE mg/dL (NEG); PH, URINE 6.5 (5.0-8.5)
[2016-11-05 19:05] LABS: NITRITE,URINE POS (NEG)
[2016-11-05 19:06] LABS: URINE COLOR AMBER (YELLW/STRAW)
[2016-11-05 19:07] LABS: RBC, URINE 0-3 /hpf (0-3); SQUAMOUS EPITHELIAL CELL URINE 0-5 /hpf (0-5)
[2016-11-05 19:27] LABS: COMMENT (UR) CATH-CULTURE IND; CULTURE IF INDICATED CATH CULTURE IND
[2016-11-05 19:47] LABS: AUTOMATED NEUTROPHIL # 2.1 TH/MM3 (1.8-7.7); BASOPHIL # 0.1 TH/MM3 (0-0.2); BASOPHIL % 1.2 % (0.0-2.0); EOSINOPHIL # 0.1 TH/MM3 (0-0.4); HEMATOCRIT 38.3 % (35.0-46.0); HEMO FLAGS DIFF FINAL; LYMPH % 49.1 % (9.0-44.0); LYMPHOCYTE # 2.5 TH/MM3 (1.0-4.8); MEAN CELL VOLUME 102.4 FL (80.0-100.0); MEAN CORPUSCULAR HEMOGLOBIN 34.2 PG (27.0-34.0); MEAN CORPUSCULAR HGB CONC 33.4 % (32.0-36.0); MONO % 7.4 % (0.0-8.0); NEUT % 41.3 % (16.0-70.0); PLATELET COUNT 204 TH/MM3 (150-450); RED BLOOD COUNT 3.74 MIL/MM3 (4.00-5.30); RED CELL DISTRIBUTION WIDTH 14.8 % (11.6-17.2); WHITE BLOOD COUNT 5.2 TH/MM3 (4.0-11.0)
[2016-11-05 19:53] LABS: CHLORIDE 105 MEQ/L (98-107); POTASSIUM 3.7 MEQ/L (3.5-5.1); SODIUM (NA) 145 MEQ/L (136-145)
[2016-11-05 19:57] LABS: ANION GAP 7 MEQ/L (5-15); BICARBONATE 33.1 MEQ/L (21.0-32.0)
[2016-11-05 19:58] LABS: BLOOD UREA NITROGEN 8 MG/DL (7-18)
[2016-11-05 20:00] LABS: ALT (GPT) 12 U/L (10-53); APTT (PATIENT) 28.3 SEC (24.3-30.1); PROTHROMBIN TIME - PATIENT 10.7 SEC (9.8-11.6)
[2016-11-05 20:01] LABS: AST (GOT) 19 U/L (15-37); GLOMERULAR FILTRATION RATE 91 ML/MIN (>89)
[2016-11-05 20:02] LABS: TOTAL BILIRUBIN ADULT 0.4 MG/DL (0.2-1.0)
[2016-11-05 20:03] LABS: ALKALINE PHOSPHATASE 59 U/L (45-117)
[2016-11-05] MEDS ORDERED: IOHEXOL 350 MG/ML 10 ML VIAL (for RAD DIAG) IV ONE (20:24)
--- NOTE | 2016-11-05 20:42 | RADRPT ---
EXAM DATE/TIME: 11/05/2016 20:04 [facility] COMPARISON: CT ABDOMEN & PELVIS W CONTRAST, September 03, 2016, 2:00. INDICATIONS : Abdominal pain. IV CONTRAST: 100 cc Omnipaque 350 (iohexol) IV ORAL CONTRAST: No oral contrast ingested. RADIATION DOSE: 8.07 CTDIvol (mGy) MEDICAL HISTORY : Gastroparesis. Gastroesophageal reflux disease. Pancreatitis.Diverticulitis. Hiatal hernia. Inguinal hernias. Hepatitis B. SURGICAL HISTORY : Cholecystectomy. Hysterectomy.Tubal ligation.Bladder sling. Inguinal hernia repair. ENCOUNTER: Initial ACUITY: 1 day PAIN SCALE: 8/10 LOCATION: abdomen TECHNIQUE: Volumetric scanning of the abdomen and pelvis was performed. Using automated exposure control and ad justment of the mA and/or kV according to patient size, radiation dose was kept as low as reasonably achievable to obtain optimal diagnostic quality images. FINDINGS: LOWER LUNGS: The visualized lower lungs are clear. LIVER: Measures 19.7 cm. There is a subtle nodular contour. At the liver dome there is a 5 mm low-density le pedro that is too small to characterize. Portal vein is within normal limits. There are multiple clips in the gallbladder fossa causing severe beam hardening artifact. There is no dilation of the biliar y tree. SPLEEN: Enlarged measuring approximately 15 cm. PANCREAS: Within normal limits. KIDNEYS: Normal in size and shape. There is no mass or hydronephrosis. There are multiple low density lesions bilaterally that are subcentimeter in size and too small to characterize. Most of these were present previously. A 2 mm nonobstructing stone is present in the left lower pole collecting system. ADRENAL GLANDS: Within normal limits. VASCULAR: There is no aortic aneurysm. There is severe atherosclerotic disease with high grade stenosis versus occlusion of the left common iliac artery. BOWEL/MESENTERY: The stomach, small bowel, and colon demonstrate no acute abnormality. There is no free intraperitone al air. There is sigmoid diverticulosis. A small volume of free fluid is present in the abdomen and p gypsy. ABDOMINAL WALL: Within normal limits. RETROPERITONEUM: There is no lymphadenopathy. BLADDER: No wall thickening or mass. REPRODUCTIVE: Uterus is absent. INGUINAL: There is no lymphadenopathy or hernia. MUSCULOSKELETAL: There are degenerative changes of the spine. CONCLUSION: 1. No acute finding is identified to explain the patient's abdominal pain. There is a small volume of free fluid in the abdomen and pelvis from uncertain etiology. However, it may be related to the live r disease. 2. There is hepatomegaly with a subtle liver changes that may indicate cirrhosis. Additionally, there is stable splenomegaly. 3. Severe atherosclerotic disease with chronic high-grade stenosis or occlusion of the left common il iac artery. Mayur Hogue MD on November 05, 2016 at 20:33 Board Certified Radiologist. This report was verified electronically.
[2016-11-05] MEDS ORDERED: MACR100C2 PO (20:57)
[2016-11-05] MEDS ORDERED: cefTRIAXone INJ 1,000 MG in SODIUM CHLORIDE 0.9% INJ 100 ML IV ONE (21:00)
== END 2016-11-05 22:05 | disposition home or self-care (01) ==
LOC: PHED 17:41
DX: N39.0 Urinary tract infection, site not specified (principal); R10.9 Unspecified abdominal pain; D64.9 Anemia, unspecified; J45.909 Unspecified asthma, uncomplicated; I48.91 Unspecified atrial fibrillation; E78.00 Pure hypercholesterolemia, unspecified; I10 Essential (primary) hypertension; Z79.82 Long term (current) use of aspirin
CPT/HCPCS: 74177; 80053; 81001; 85025; 85610; 85730; 87086; 96365; 99285; J0696; P9612; Q9967

== ENCOUNTER 2016-11-06 17:56 | Emergency (ER) | payer MEDICARE, OTHER ==
[~2016-11-06 17:56] MED LIST changes: -FLUC100T2 PO; +MACR100C2 PO
[2016-11-06 18:14] VITALS: BP 185/89; PULSE 84; RESP 20; TEMP 98; O2SAT 90
--- NOTE | 2016-11-06 19:00 | PD ---
HPI Chief Complaint: Back/ Neck Pain or Injury Time Seen by Provider: 18:38 Travel History International Travel<30 days: No Contact w/Intl Traveler<30days: No Traveled to known affect area: No History of Present Illness HPI This 66-year-old female is complaining of right flank pain. She says she been having the pain today. She says she is unable to urinate. She has been having a lot of medical issues recently. She has and diagnosed with encephalopathy of uncertain etiology. She is seeing Dr. Cannon and is to have a lumbar puncture tomorrow at [facility]. She was in the emergency department yesterday complaining of burning and abdominal pain. She had a CT scan of the abdomen and pelvis done which not show any kidney stones in etiology for the pain. Her lab work was normal. She had just a few white cells. She apparently was telling her about this pain today is brought her for evaluation. She recently had a cardiac arrest. She sees Dr. Falk for evaluation of a liver abnormality. She has chronic back pain which she is on OxyContin. PFSH Past Medical History Hx Anticoagulant Therapy: Yes (ASA) Anemia: Yes Arthritis: Yes Asthma: Yes Atrial Fibrillation: Yes Autoimmune Disease: No Blood Disorders: Yes (mpd) Anxiety: Yes Depression: Yes Heart Rhythm Problems: Yes Cancer: No Cardiovascular Problems: Yes (cardiac arrest ) High Cholesterol: Yes Chemotherapy: Yes Chest Pain: No Congestive Heart Failure: Yes COPD: Yes Cerebrovascular Accident: Yes (spinal stroke) Coronary Artery Disease: Yes Diabetes: No Diminished Hearing: No Diverticulitis: Yes Endocrine: No Gastrointestinal Disorders: Yes (gastroperesis, ibs, acid reflux) GERD: Yes Glaucoma: No Genitourinary: Yes Headaches: No Hepatitis: Yes (HEP-B) Hiatal Hernia: Yes Heparin Induced Thrombocytopen: No Hypertension: Yes Immune Disorder: No Implanted Vascular Access Dvce: No Kidney Stones: Yes Musculoskeletal: No Neurologic: No Psychiatric: No Reproductive: No Respiratory: Yes (COPD) Migraines: Yes Myocardial Infarction: No Pancreatitis: Yes Radiation Therapy: No Renal Failure: No Seizures: No Sickle Cell Disease: No Sleep Apnea: No Thyroid Disease: No Ulcer: No Menopausal: Yes Tubal Ligation: Yes Past Surgical History Abdominal Surgery: Yes AICD: No Arteriovenous Shunt: No Cardiac Surgery: Yes Cholecystectomy: Yes Ear Surgery: No Endocrine Surgery: No Eye Surgery: No Genitourinary Surgery: Yes (3 inguinal hernias, bladder sling) Gynecologic Surgery: Yes Hysterectomy: Yes Insulin Pump: No Joint Replacement: No Neurologic Surgery: No Oral Surgery: No Pacemaker: No Thoracic Surgery: No Other Surgery: Yes Social History Alcohol Use: No Tobacco Use: Yes (1 ppd) Substance Use: No Allergies-Medications (Allergen,Severity, Reaction): Coded Allergies: Bactrim (Verified Allergy, Severe, "VOMITING", 11/05/16) Inderal (Verified Allergy, Severe, "CAUSES ASTHMA ATTACK", 11/05/16) Indocin (Verified Allergy, Severe, "NAUSEA", 11/05/16) Penicillin (Verified Allergy, Severe, "HEART FAILURE", 11/05/16) Procardia (Verified Allergy, Severe, "RAPID HEART BEAT", 11/05/16) states does not have a allergy to this medication Yadi,rn 08/15/16 Lanoxin (Verified Adverse Reaction, Unknown, Arrhythmias, 11/05/16) Reported Meds & Prescriptions Reported Meds & Active Scripts Active Macrobid (Nitrofurantoin Monoh/Nitrofur Macro) 100 Mg Cap 100 Mg PO BID 7 Days Reported Quetiapine (Quetiapine Fumarate) 25 Mg Tab 25 Mg PO DAILY Estrace (Estradiol) 1 Mg Tab 1 Mg PO DAILY Methenamine Hippurate 1 Gm Tab 1 Gm PO BID Advair Diskus Inh (Fluticasone-Salmeterol Inh) 250-50 Mcg/Blist Aer 1 Puff INH BID Rinse mouth after use. Creon (Amylase/Lipase/Protease) 24,000-76,000-120,000 Units Cap 24,000 Cap PO TIDPC Ibgard (Peppermint Oil) 90 Mg Capdr...er 90 Mg PO DAILY Omeprazole 40 Mg Cap 40 Mg PO DAILY Zofran (Ondansetron HCl) 8 Mg Tab 8 Mg PO TID Bethanechol 25 Mg Tab 25 Mg PO QID Hydrea (Hydroxyurea) 500 Mg Cap 500 Mg PO DAILY Soma (Carisoprodol) 350 Mg Tab 350 Mg PO QID PRN Oxycodone (Oxycodone HCl) 15 Mg Tab 15 Mg PO Q4H PRN Oxycontin (Oxycodone HCl) 40 Mg Tab.er.12h 40 Mg PO TID Temazepam 30 Mg Cap 30 Mg PO HS PRN Trazodone (Trazodone HCl) 50 Mg Tab 50 Mg PO HS Metoprolol Tartrate 50 Mg Tab 50 Mg PO BID Aspir-81 (Aspirin) 81 Mg Tabdr Treximet (Sumatriptan-Naproxen) 85-500 Mg Tab 1 Tab PO ONCE PRN May take a second dose after 2 hours if needed. Maximum 2 tabs in 24 hour period. Ventolin Hfa 18 GM Inh (Albuterol Sulfate) 90 Mcg/Act Aer 1 Puff INH Q4H PRN Review of Systems General / Constitutional: No: Fever, Chills Eyes: No: Diploplia, Blurred Vision HENT: No: Headaches, Vertigo Cardiovascular: No: Chest Pain or Discomfort, Palpitations Gastrointestinal: No: Nausea, Vomiting Genitourinary: Positive: Dysuria, Flank Pain Musculoskeletal: No: Myalgias, Arthralgias Physical Exam Narrative GENERAL: Chronically ill-appearing female appears older than his stated age SKIN: Focused skin assessment warm/dry. HEAD: Atraumatic. Normocephalic. EYES: Pupils equal and round. No scleral icterus. No injection or drainage. ENT: No nasal bleeding or discharge. Mucous membranes pink and moist. NECK: Trachea midline. No JVD. CARDIOVASCULAR: Regular rate and rhythm. No murmur appreciated. RESPIRATORY: No accessory muscle use. Clear to auscultation. Breath sounds equal bilaterally. GASTROINTESTINAL: Abdomen soft, non-tender, nondistended. Hepatic and splenic margins not palpable. Site of pain is the right CVA area. It is normal to inspection and palpation MUSCULOSKELETAL: No obvious deformities. No clubbing. No cyanosis. No edema. NEUROLOGICAL: Awake and alert. No obvious cranial nerve deficits. Motor grossly within normal limits. Confused PSYCHIATRIC: Limited judgment Data Data Last Documented VS Vital Signs Date Time Temp Pulse Resp B/P Pulse Ox O2 Delivery O2 Flow Rate FiO2 11/06/16 18:14 98.0 84 20 185/89 90 Orders Oxycodone (Roxicodone) (11/06/16 19:00) [facility] Medical Decision Making Medical Screen Exam Complete: Yes Emergency Medical Condition: Yes Medical Record Reviewed: Yes Differential Diagnosis Differential includes musculoskeletal pain, UTI, renal colic Narrative Course Patient had a CT scan yesterday which was negative for stones.Says she's been urinating throughout the day that she is not aware of this. I will offer some pain medication and she will be released Diagnosis Primary Impression: Right flank pain Disposition: 01 DISCHARGE HOME Condition: Stable Kevin Arcos MD Nov 06, 2016 19:00
[2016-11-06 19:19] VITALS: BP 180/93; PULSE 83; RESP 20; O2SAT 93
== END 2016-11-06 19:44 | disposition home or self-care (01) ==
LOC: PHED 17:56
DX: R10.31 Right lower quadrant pain (principal); F17.210 Nicotine dependence, cigarettes, uncomplicated; I48.91 Unspecified atrial fibrillation; E78.00 Pure hypercholesterolemia, unspecified; I50.9 Heart failure, unspecified; K21.9 Gastro-esophageal reflux disease without esophagitis; I10 Essential (primary) hypertension; Z87.442 Personal history of urinary calculi; B19.10 Unspecified viral hepatitis B without hepatic coma
CPT/HCPCS: 99283

== ENCOUNTER 2016-11-08 17:31 | Observation (INO) | payer MEDICARE, OTHER ==
[~2016-11-08] VITALS: Ht 152.4 cm; Wt 55.4 kg
[2016-11-08] VITALS (7 sets, daily range): BP systolic 141–192; BP diastolic 80–102; PULSE 73–92; RESP 16–22; TEMP 98.2–98.9; O2SAT 94–96
[~2016-11-08 17:31] MED LIST changes: +ADVA100A INH; +ASPI1TAB69 PO; +CHOL4POW3 PO; +CREO3000 PO; +DILT31TA PO; +ENAL10TA PO; +ESTR42.5V VAGINAL; +FLUC100T2 PO; +GETGO ROLLING W1 MI1; +HYDR500C2 PO; +LACTCAP8 PO; +LEVO750T3 PO; +OXYGEN NAS.CANULA; +POTA20TA5 PO; +[UNRECOGNIZED DRUG - OTHER] PO
[2016-11-08] MEDS ORDERED: ASPIRIN 81 MG CHEW TAB PO ONE (17:45)
[2016-11-08] MEDS ORDERED: SODIUM CHLORIDE 0.9% FLUSH 10 ML FLUSH IVF PRN (17:45)
--- NOTE | 2016-11-08 17:52 | PD ---
HPI . CHEST PAIN, AND SUPRAPUBIC PAIN Chief Complaint: cp Time Seen by Provider: 17:37 Travel History International Travel<30 days: No Contact w/Intl Traveler<30days: No History of Present Illness HPI PATIENT WAS COMPLAINING SUPRAPUBIC DISCOMFORT, HOWEVER, STATES SHE HAS CP, AT WHICH POINT SHE STATES "OH YEAH IT WAS HURTING HERE" AND POINTS TO HER STERNUM. SHE CLAIMS CP IS 4/10 AT ONSET AND 0/10 NOW, SHARP IN DESCRIPTION, NONRADIATING, NO NOTED ALLEVIATING OR AGGRAVATING FACTORS...ORIGINAL PAIN STARTED AT 1300 (CP).. HER SUPRAPUBIC DISCOMFORT IS 8/10. SHE CLAIMED THAT SHE HAD A UTI, HOWEVER I MENTIONED TO BOTH OF THEM THAT CULTURES WERE NEGATIVE FOR GROWTH. PFSH Past Medical History Hx Anticoagulant Therapy: Yes (ASA) Anemia: Yes Arthritis: Yes Asthma: Yes Atrial Fibrillation: Yes Autoimmune Disease: No Blood Disorders: Yes (mpd) Anxiety: Yes Depression: Yes Heart Rhythm Problems: Yes Cancer: No Cardiovascular Problems: Yes (cardiac arrest ) High Cholesterol: Yes Chemotherapy: Yes Chest Pain: No Congestive Heart Failure: Yes COPD: Yes Cerebrovascular Accident: Yes (spinal stroke) Coronary Artery Disease: Yes Diabetes: No Diminished Hearing: No Diverticulitis: Yes Endocrine: No Gastrointestinal Disorders: Yes (gastroperesis, ibs, acid reflux) GERD: Yes Glaucoma: No Genitourinary: Yes Headaches: No Hepatitis: Yes (HEP-B) Hiatal Hernia: Yes Heparin Induced Thrombocytopen: No Hypertension: Yes Immune Disorder: No Implanted Vascular Access Dvce: No Kidney Stones: Yes Musculoskeletal: No Neurologic: No Psychiatric: No Reproductive: No Respiratory: Yes (COPD) Migraines: Yes Myocardial Infarction: No Pancreatitis: Yes Radiation Therapy: No Renal Failure: No Seizures: No Sickle Cell Disease: No Sleep Apnea: No Thyroid Disease: No Ulcer: No Menopausal: Yes Tubal Ligation: Yes Past Surgical History Abdominal Surgery: Yes AICD: No Arteriovenous Shunt: No Cardiac Surgery: Yes Cholecystectomy: Yes Ear Surgery: No Endocrine Surgery: No Eye Surgery: No Genitourinary Surgery: Yes (3 inguinal hernias, bladder sling) Gynecologic Surgery: Yes Hysterectomy: Yes Insulin Pump: No Joint Replacement: No Neurologic Surgery: No Oral Surgery: No Pacemaker: No Thoracic Surgery: No Other Surgery: Yes Social History Alcohol Use: No Tobacco Use: Yes (1 ppd) Substance Use: No Allergies-Medications (Allergen,Severity, Reaction): Coded Allergies: Bactrim (Verified Allergy, Severe, "VOMITING", 11/08/16) Inderal (Verified Allergy, Severe, "CAUSES ASTHMA ATTACK", 11/08/16) Indocin (Verified Allergy, Severe, "NAUSEA", 11/08/16) Penicillin (Verified Allergy, Severe, "HEART FAILURE", 11/08/16) Procardia (Verified Allergy, Severe, "RAPID HEART BEAT", 11/08/16) states does not have a allergy to this medication carlos Grullon 08/15/16 Lanoxin (Verified Adverse Reaction, Unknown, Arrhythmias, 11/08/16) Reported Meds & Prescriptions Reported Meds & Active Scripts Active Reported Quetiapine (Quetiapine Fumarate) 25 Mg Tab 25 Mg PO DAILY Estrace (Estradiol) 1 Mg Tab 1 Mg PO DAILY Methenamine Hippurate 1 Gm Tab 1 Gm PO BID Advair Diskus Inh (Fluticasone-Salmeterol Inh) 250-50 Mcg/Blist Aer 1 Puff INH BID Rinse mouth after use. Creon (Amylase/Lipase/Protease) 24,000-76,000-120,000 Units Cap 24,000 Cap PO TIDPC Ibgard (Peppermint Oil) 90 Mg Capdr...er 90 Mg PO DAILY Omeprazole 40 Mg Cap 40 Mg PO DAILY Zofran (Ondansetron HCl) 8 Mg Tab 8 Mg PO TID Bethanechol 25 Mg Tab 25 Mg PO QID Hydrea (Hydroxyurea) 500 Mg Cap 500 Mg PO DAILY Soma (Carisoprodol) 350 Mg Tab 350 Mg PO QID PRN Oxycodone (Oxycodone HCl) 15 Mg Tab 15 Mg PO Q4H PRN Oxycontin (Oxycodone HCl) 40 Mg Tab.er.12h 40 Mg PO TID Temazepam 30 Mg Cap 30 Mg PO HS PRN Trazodone (Trazodone HCl) 50 Mg Tab 50 Mg PO HS Metoprolol Tartrate 50 Mg Tab 50 Mg PO BID Aspir-81 (Aspirin) 81 Mg Tabdr Treximet (Sumatriptan-Naproxen) 85-500 Mg Tab 1 Tab PO ONCE PRN May take a second dose after 2 hours if needed. Maximum 2 tabs in 24 hour period. Ventolin Hfa 18 GM Inh (Albuterol Sulfate) 90 Mcg/Act Aer 1 Puff INH Q4H PRN Review of Systems Except as stated in HPI: all other systems reviewed are Neg Cardiovascular: Positive: Chest Pain or Discomfort Physical Exam Narrative GENERAL: SKIN: Warm and dry. HEAD: Atraumatic. Normocephalic. EYES: Pupils equal and round. No scleral icterus. No injection or drainage. ENT: No nasal bleeding or discharge. Mucous membranes pink and moist. NECK: Trachea midline. No JVD. CARDIOVASCULAR: Regular rate and rhythm. RESPIRATORY: No accessory muscle use. Clear to auscultation. Breath sounds equal bilaterally. GASTROINTESTINAL: Abdomen soft, non-tender, nondistended. MILD SUPRAPUBIC TTP MUSCULOSKELETAL: Extremities without clubbing, cyanosis, or edema. No obvious deformities. NEUROLOGICAL: Awake and alert. No obvious cranial nerve deficits. Motor grossly within normal limits. Five out of 5 muscle strength in the arms and legs. Normal speech. PSYCHIATRIC: Appropriate mood and affect; insight and judgment normal. Data Data Last Documented VS Orders Electrocardiogram (11/08/16 17:42) Ckmb (Isoenzyme) Profile (11/08/16 17:42) Comprehensive Metabolic Panel (11/08/16 17:42) Prothrombin Time / Inr (Pt) (11/08/16 17:42) Act Partial Throm Time (Ptt) (11/08/16 17:42) Troponin I (11/08/16 17:42) Chest, Single Ap (11/08/16 17:42) Ecg Monitoring (11/08/16 17:42) Iv Access Insert/Monitor (11/08/16 17:42) Oximetry (11/08/16 17:42) Oxygen Administration (11/08/16 17:42) Aspirin Chew (Aspirin Chew) (11/08/16 17:45) Sodium Chloride 0.9% Flush (Ns Flush) (11/08/16 17:45) Arterial Blood Gas (Abg) (11/08/16 ) Admit Order (Ed Use Only) (11/08/16 19:31) Labs MDM Medical Decision Making Medical Screen Exam Complete: Yes Emergency Medical Condition: Yes Medical Record Reviewed: Yes Interpretation(s) NSR 71, LAE, T WAVE INVERSION FROM V1-V5 C/W ISCHEMIC CHANGES WITHOUT STEMI PATTERN NOTED Differential Diagnosis NM/NONSTEMI V PE VS PTX V PNA Narrative Course PATIENT PRESENTED WITH CP (ALSO WITH SUPRAPUBIC PAIN WHICH WAS EVALUATED YESTERDAY) EKG SHOWS ISCHEMIC CHANGES AND WILL SIGN OUT TO DR MULLINS PENDING LABS AND ADMISSION/OBSERVATION FOR R/O NM. Diagnosis Primary Impression: CP R/O NM Admitting Information Admitting Physician Requests: Observation Scripts Ciprofloxacin (Cipro)500 Mg [id number] Mg PO BID #10 TAB Ref 0 Prov:Everett Carrion MD 11/10/16 Ciprofloxacin (Cipro)500 Mg [id number] Mg PO Q12HR #10 TAB Prov:Everett Carrion MD 11/10/16 Condition: Stable Can Domínguez MD Nov 08, 2016 17:52 Anion Gap 8 MEQ/L Blood Urea Nitrogen 8 MG/DL Random Glucose 93 MG/DL Calcium Level 9.0 MG/DL Albumin 3.0 GM/DL [facility] Medical Decision Making Medical Screen Exam Complete: Yes Emergency Medical Condition: Yes Medical Record Reviewed: Yes Interpretation(s) NSR 71, LAE, T WAVE INVERSION FROM V1-V5 C/W ISCHEMIC CHANGES WITHOUT STEMI PATTERN NOTED Differential Diagnosis NM/NONSTEMI V PE VS PTX V PNA Narrative Course PATIENT PRESENTED WITH CP (ALSO WITH SUPRAPUBIC PAIN WHICH WAS EVALUATED YESTERDAY) EKG SHOWS ISCHEMIC CHANGES AND WILL SIGN OUT TO DR MULLINS PENDING LABS AND ADMISSION/OBSERVATION FOR R/O NM. Diagnosis Primary Impression: CP R/O NM Admitting Information Admitting Physician Requests: Observation Condition: Stable Can Domínguez MD Nov 08, 2016 17:52
--- NOTE | 2016-11-08 18:15 | RADRPT ---
EXAM DATE/TIME: 11/08/2016 18:01 [place] COMPARISON: CHEST SINGLE AP, November 02, 2016, 23:15. INDICATIONS : Chest pain. MEDICAL HISTORY : Chronic obstructive pulmonary disease. SURGICAL HISTORY : None. ENCOUNTER: Initial ACUITY: 1 day PAIN SCORE: 7/10 LOCATION: Bilateral chest FINDINGS: A single view of the chest demonstrates the lungs to be symmetrically aerated without evidence of mas s, infiltrate or effusion. The cardiomediastinal contours are unremarkable. Osseous structures are intact. CONCLUSION: No acute disease. Mayur Whaley MD on November 08, 2016 at 18:12 Board Certified Radiologist. This report was verified electronically.
[2016-11-08 18:50] LABS: CHLORIDE 103 MEQ/L (98-107); POTASSIUM 3.9 MEQ/L (3.5-5.1); SODIUM (NA) 140 MEQ/L (136-145)
[2016-11-08 18:54] LABS: ANION GAP 8 MEQ/L (5-15); BICARBONATE 29.2 MEQ/L (21.0-32.0); BLOOD UREA NITROGEN 8 MG/DL (7-18)
[2016-11-08 18:56] LABS: PROTHROMBIN TIME - PATIENT 10.9 SEC (9.8-11.6)
[2016-11-08 18:57] LABS: ALT (GPT) 10 U/L (10-53); AST (GOT) 19 U/L (15-37); GLOMERULAR FILTRATION RATE 106 ML/MIN (>89)
[2016-11-08 18:59] LABS: TOTAL BILIRUBIN ADULT 0.5 MG/DL (0.2-1.0)
[2016-11-08 19:00] LABS: ALKALINE PHOSPHATASE 54 U/L (45-117)
[2016-11-08 19:06] LABS: CREATINE KINASE 46 U/L (26-192)
[2016-11-08] MEDS ORDERED: KETOROLAC TROMETHAMINE 60 MG/2 ML (IM) VIAL IM ONE (19:45)
[2016-11-08 20:32] LABS: BLOOD, URINE NEG (NEG); GLUCOSE,URINE 100 mg/dL (NEG); KETONE, URINE NEG (NEG); PH, URINE 6.5 (5.0-8.5)
[2016-11-08 20:50] LABS: NITRITE,URINE POS (NEG); URINE COLOR ORANGE (YELLW/STRAW)
[2016-11-08 20:51] LABS: MUCUS URINE OCC /lpf (OCC); SQUAMOUS EPITHELIAL CELL URINE 0-5 /hpf (0-5); WBC, URINE 0-2 /hpf (0-5)
[2016-11-08 20:52] LABS: BACTERIA, URINE OCC /hpf
[2016-11-08] MEDS: SODIUM CHLORIDE 0.9% FLUSH 10 ML FLUSH SCH (21:00)
[2016-11-08 21:13] LABS: BLOOD GAS BASE EXCESS 4.2 mmol/L (-2-2); BLOOD GAS CARBOXYHEMOGLOBIN 3.9 % (0-4); BLOOD GAS HCO3 28 mmol/L (22-26); BLOOD GAS METHEMOGLOBIN 1.2 % (0-2); BLOOD GAS O2 HGB SATURATION 87 % (90-100); BLOOD GAS PCO2 38 mmHG (38-42); BLOOD GAS PO2 63 mmHG (61-120); BLOOD GAS TOTAL HGB 12.2 G/DL (12.0-16.0); CRITICAL VALUE YES; DRAW SITE LT RADIAL; FIO2 21 %; NUMBER OF ARTERIAL PUNCTURES 1; TEMP CORR TO 98.6; ULNAR PULSE Y
[2016-11-08 21:14] LABS: STAT NO
[2016-11-08] MEDS ORDERED: ALBUTEROL SULFATE 90 MCG/ACT HFA 8 GM INHALER INH PRN (21:15)
[2016-11-08 21:34] LABS: COMMENT (UR) CULTURE INDICATED; CULTURE IF INDICATED CULTURE INDICATED
[2016-11-08] MEDS: oxyCODONE HCL 20 MG CONTROLLED RELEASE TAB PO SCH (22:00)
[2016-11-08] MEDS: traZODone HCL 50 MG TAB PO SCH (22:28)
[2016-11-08] MEDS: METOPROLOL TARTRATE 50 MG TAB PO SCH (22:28)
[2016-11-09] VITALS (8 sets, daily range): BP systolic 127–156; BP diastolic 73–89; PULSE 61–72; RESP 16–18; TEMP 96.9–97.6; O2SAT 96–100
[2016-11-09] MEDS: TEMAZEPAM 15 MG CAP PO PRN ×2 (01:02→22:39)
[2016-11-09] MEDS: oxyCODONE HCL 20 MG CONTROLLED RELEASE TAB PO SCH ×3 (05:13→20:37)
[2016-11-09] MEDS: CARISOPRODOL 350 MG TAB PO PRN ×2 (06:13→22:39)
--- NOTE | 2016-11-09 07:24 | HHI.HP ---
[facility] Non-Staff Admission Diagnosis CP R/O AR Diagnoses: (1) Chest pain Diagnosis: Principal (2) Abdominal pain Diagnosis: Principal Chief Complaint: Chest discomfort, lower abdominal pain Travel History International Travel<30 Days: No Contact w/Intl Traveler <30 Da: No Traveled to Known Affected Are: No History of Present Illness Written by Ramiro Bhat, acting as scribe for Dr. Carrion on 11/09/16 at 07: 49. 66-year-old female with rather complex medical history of hypertension , hyperlipidemia, coronary artery disease, cardiac arrest, chronic pain, chronic hypoxic respiratory failure oxygen dependent, myeloproliferative disorder, gastroparesis, memory deficit, chronic obstructive pulmonary disease who presented to hospital with her with symptoms of lower abdominal pain and chest discomfort. The patient herself is unable to give any pertinent information at this time. indicates that the patient has been having worsening memory since April and is under care of Dr. Cannon in outpatient setting and has recently undergone lumbar puncture and workup for her memory deficit. indicates that the patient is followed by Dr. De La Rosa in outpatient setting. Patient recently underwent cardiac catheterization one week ago that did not require intervention. indicates that they're told that there was coronary artery disease, however medical management was the decided care and patient is being managed for her angina with medication. indicates that patient always has intermittent chest discomfort located in the midsternal region without any radiation to neck , back, shoulder, arm, she is always nauseous due to gastroparesis. Denies any vomiting. Patient does have chronic hypoxic respiratory failure with oxygen dependency. Patient always appears to be short of breath, patient does continue to smoke on a daily basis. Unknown if pain is worsened by exertion or only at rest, indicates that patient does not really move, just lays around all day and has no energy to ambulate. Patient was recently treated emergency department for possible urinary tract infection due to the patient's lower abdominal discomfort. Culture did not grow any bacteria. However patient continues to complain of pain in her bladder region. She does have history of renal lithiasis status post cystoscopy and double-J stent placement. CT scan done recently did not indicate obstruction or kidney stones. No hematuria was present. indicates that they have been discussing with hospice on 2 separate occasions about management and care. I also discussed hospice care with patient and at bedside. Again they are willing to speak with hospice about home with hospice care. Patient was evaluated in emergency department and limited labs did not indicate any acute abnormality. EKGs did show significant T-wave inversions in anterior lateral leads which appear to be changed from her previous EKG done here at [facility] since her PEA cardiac arrest. However do not have recent catheterization results or EKGs to see if the changes are results of her cardiac arrest or if they are new during this presentation. We'll need to obtain outside records for completeness of her evaluation. Review of Systems ROS Limitations: Poor Historian (Limited due to patient's mentation, information taken from ) Constitutional: COMPLAINS OF: Fatigue, Weight loss, Change in appetite Endocrine: DENIES: Abnorml menstrual pattern, Heat/cold intolerance, Polydipsia , Polyuria, Polyphagia Eyes: DENIES: Blurred vision, Diplopia, Eye inflammation, Eye pain, Vision loss , Photosensitivity, Double Vision Respiratory: COMPLAINS OF: Shortness of breath, DENIES: Apneas, Cough, Snoring , Wheezing, Hemoptysis, Sputum production Cardiovascular: COMPLAINS OF: Chest pain, DENIES: Palpitations, Syncope, Dyspnea on Exertion, PND, Lower Extremity Edema, Orthopnea, Claudication Gastrointestinal: COMPLAINS OF: Abdominal pain, Nausea, DENIES: Black stools, Bloody stools, Constipation, Diarrhea, Vomiting, Difficulty Swallowing, Anorexia Genitourinary: DENIES: Abnormal vaginal bleeding, Dysmenorrhea, Dyspareunia, Sexual dysfunction, Urinary frequency, Urinary incontinence, Urgency, Hematuria , Dysuria, Nocturia, Vaginal discharge Musculoskeletal: DENIES: Joint pain, Muscle aches, Stiffness, Joint Swelling, Back pain, Neck pain Integumentary: DENIES: Abnormal pigmentation, Pruritus, Rash, Nail changes, Breast masses, Breast skin changes, Nipple discharge Hematologic/lymphatic: DENIES: Bruising, Lymphadenopathy Immunologic/allergic: DENIES: Eczema, Urticaria Neurologic: COMPLAINS OF: Poor Balance, DENIES: Abnormal gait, Headache, Localized weakness, Paresthesias, Seizures, Speech Problems, Tremor Psychiatric: COMPLAINS OF: Confusion, DENIES: Anxiety, Mood changes, Depression, Hallucinations, Agitation, Suicidal Ideation, Homicidal Ideation, Delusions Past Family Social History Past Medical History Hypertension Hyperlipidemia Atrial fibrillation History myocardial infarction Recent PEA cardiac arrest Coronary artery disease History of kidney stones Chronic hypoxic respiratory failure, oxygen dependent Chronic obstructive pulmonary disease Emphysema History of Hepatitis B Myeloproliferative disorder Chronic neck and back pain History of pancreatitis Gastroparesis Irritable bowel syndrome Chronic, recurrent urinary tract infection Hiatal hernia Gastroesophageal reflux Past Surgical History Cardiac catheterization one week ago Bladder suspension 3 inguinal hernia repairs 2 cervical fusion surgery Tubal ligation Left breast biopsy Hysterectomy Cholecystectomy Cystoscopy with lithotripsy, stone extraction and left double-J stent change Reported Medications Reported Meds & Active Scripts Active Macrobid (Nitrofurantoin Monoh/Nitrofur Macro) 100 Mg Cap 100 Mg PO BID 7 Days Reported Quetiapine (Quetiapine Fumarate) 25 Mg Tab 25 Mg PO DAILY Estrace (Estradiol) 1 Mg Tab 1 Mg PO DAILY Methenamine Hippurate 1 Gm Tab 1 Gm PO BID Advair Diskus Inh (Fluticasone-Salmeterol Inh) 250-50 Mcg/Blist Aer 1 Puff INH BID Rinse mouth after use. Creon (Amylase/Lipase/Protease) 24,000-76,000-120,000 Units Cap 24,000 Cap PO TIDPC Ibgard (Peppermint Oil) 90 Mg Capdr...er 90 Mg PO DAILY Omeprazole 40 Mg Cap 40 Mg PO DAILY Zofran (Ondansetron HCl) 8 Mg Tab 8 Mg PO TID Bethanechol 25 Mg Tab 25 Mg PO QID Hydrea (Hydroxyurea) 500 Mg Cap 500 Mg PO DAILY Soma (Carisoprodol) 350 Mg Tab 350 Mg PO QID PRN Oxycodone (Oxycodone HCl) 15 Mg Tab 15 Mg PO Q4H PRN Oxycontin (Oxycodone HCl) 40 Mg Tab.er.12h 40 Mg PO TID Temazepam 30 Mg Cap 30 Mg PO HS PRN Trazodone (Trazodone HCl) 50 Mg Tab 50 Mg PO HS Metoprolol Tartrate 50 Mg Tab 50 Mg PO BID Aspir-81 (Aspirin) 81 Mg Tabdr Treximet (Sumatriptan-Naproxen) 85-500 Mg Tab 1 Tab PO ONCE PRN May take a second dose after 2 hours if needed. Maximum 2 tabs in 24 hour period. Ventolin Hfa 18 GM Inh (Albuterol Sulfate) 90 Mcg/Act Aer 1 Puff INH Q4H PRN Allergies: Coded Allergies: Bactrim (Verified Allergy, Severe, "VOMITING", 11/08/16) Inderal (Verified Allergy, Severe, "CAUSES ASTHMA ATTACK", 11/08/16) Indocin (Verified Allergy, Severe, "NAUSEA", 11/08/16) Penicillin (Verified Allergy, Severe, "HEART FAILURE", 11/08/16) Procardia (Verified Allergy, Severe, "RAPID HEART BEAT", 11/08/16) states does not have a allergy to this medication Yadi,carlos 08/15/16 Lanoxin (Verified Adverse Reaction, Unknown, Arrhythmias, 11/08/16) Family History Reviewed and significant for mother with stroke, father unknown Social History Patient smokes 1 pack a cigarettes a day at this time, was up to 2 pack a cigarettes a day since she was 12 years old, denies any alcohol or illicit drugs Physical Exam Vital Signs Vital Signs Date Time Temp Pulse Resp B/P Pulse Ox O2 Delivery O2 Flow Rate FiO2 11/09/16 05:02 96.9 66 16 146/75 98 11/09/16 00:26 97.6 70 18 156/89 100 11/08/16 21:47 98.2 77 22 160/102 94 11/08/16 21:15 75 18 172/82 2 Nasal Cannula 2 11/08/16 21:10 96 Nasal Cannula 2.00 11/08/16 20:50 75 18 192/85 95 Room Air 11/08/16 19:30 Room Air 11/08/16 19:30 73 18 186/80 94 Room Air 11/08/16 18:24 95 Room Air 11/08/16 18:24 16 95 Room Air 11/08/16 17:50 89 16 Room Air 11/08/16 17:45 98.9 92 16 141/86 95 Physical Exam GENERAL: Well-developed, well-nourished, in no acute distress. alert and orientated to person, place HEENT: Head is normocephalic without any lesions or masses noted. Facial features are symmetric. Eyes: Pupils equal round reactive to light. Extraocular muscles are intact. Conjunctivae were clear. Oropharyngeal: Pharynx without any erythema edema. Tongue is midline without deviation. Buccal mucosa is moist without any masses or lesions NECK: Supple without any masses. Trachea midline no deviation. No JVD, no bruits are appreciated CARDIAC: Regular rhythm, regular rate. S1/S2 are heard. No murmurs gallops or rubs. LUNGS: Diminished breath sounds noted throughout. No wheeze, rhonchi or rales. No use of accessory muscles on inspiration or expiration. ABDOMEN: Soft, nontender. Nondistended. Bowel sounds heard in all 4 quadrants. No organomegaly or masses. Negative rebound, negative guarding EXTREMITIES: No edema, pulses are equal bilaterally. No cyanosis or clubbing NEUROLOGY: Mood and affect appear appropriate. Cranial nerves II through XII grossly intact. Muscle strength 5/5 in upper and lower extremities bilaterally. Deep tendon reflexes are 2+ in upper and lower extremities bilaterally. Laboratory Laboratory Tests Test 11/08/16 11/08/16 11/08/16 18:34 20:20 21:00 Prothrombin Time 10.9 Prothromb Time International 1.0 Ratio Activated Partial 24.0 Thromboplast Time Sodium Level 140 Potassium Level 3.9 Chloride Level 103 Carbon Dioxide Level 29.2 Anion Gap 8 Blood Urea Nitrogen 8 Creatinine 0.57 Estimat Glomerular Filtration 106 Rate Random Glucose 93 Calcium Level 9.0 Total Bilirubin 0.5 Aspartate Amino Transf 19 (AST/SGOT) Alanine Aminotransferase 10 (ALT/SGPT) Alkaline Phosphatase 54 Total Creatine Kinase 46 Troponin I LESS THAN 0.02 Total Protein 7.2 Albumin 3.0 Urine Color ORANGE Urine Turbidity CLEAR Urine pH 6.5 Urine Specific [place] 1.007 Urine Protein 30 Urine Glucose (UA) 100 Urine Ketones NEG Urine Occult Blood NEG Urine Nitrite POS Urine Bilirubin NEG Urine Leukocyte Esterase TRACE Urine WBC 0-2 Urine Squamous Epithelial 0-5 Cells Urine Bacteria OCC Urine Mucus OCC Microscopic Urinalysis Comment CULTURE INDICATED Blood Gas Puncture Site LT RADIAL Blood Gas Patient Temperature 98.6 Blood Gas HCO3 28 Blood Gas Base Excess 4.2 Blood Gas Oxygen Saturation 87 Arterial Blood pH 7.47 Arterial Blood Partial 38 Pressure CO2 Arterial Blood Partial 63 Pressure O2 Arterial Blood Oxygen Content 15.0 Arterial Blood 3.9 Carboxyhemoglobin Arterial Blood Methemoglobin 1.2 Blood Gas Hemoglobin 12.2 Oxygen Delivery Device Blood Gas Inspired Oxygen 21 Date/Time Procedure Status Source Growth 11/08/16 20:20 Urine Culture Received Urine Clean Catch Pending Result Diagram: 11/08/16 1834 Imaging Last Impressions Chest X-Ray 11/08/16 1742 Signed Impressions: Service Date/Time: Thursday, November 08, 2016 18:01 - CONCLUSION: No acute disease. Mayur Whaley MD 10/18/16 echocardiogram: Indicates mild LVH, systolic function was normal, ejection fraction 55-60%, mild mitral valve calcified annulus, PA peak pressure 46 mmhg Assessment and Plan Problem List: (1) Chest pain ICD Code: R07.9 Status: Acute (2) UTI (urinary tract infection) ICD Code: N39.0 Status: Acute Assessment and Plan Chest pain, unstable angina Patient with significant risk factors to include age, hypertension, hyperlipidemia, coronary artery disease, recent PEA cardiac arrest Patient recently had a cardiac catheterization one week ago and is being managed medically by her psych assistant Dr. De La Rosa Serial EKGs show extensive T-wave inversions in anterior/lateral leads. This is a progressive change from recent EKGs here at [place]. Serial cardiac enzymes thus far are negative D-dimer elevated, obtain pulmonary angiogram Resume home medication aspirin, metoprolol, nitroglycerin as needed Consult patient's psych assistant, Dr. De La Rosa for management Obtain outside records from [facility] from her recent hospitalization, cardiac catheterization, EKGs for completeness of evaluation Chronic hypoxic respiratory failure, chronic obstructive pulmonary disease, Continue O2 supplementation maintain O2 sats greater than 92% Symbicort continued as therapeutic replacement for Advair Albuterol inhaler as needed Chronic/recurrent urinary tract infection with intermittent suprapubic pain Possibly related to bladder spasm Recent CT scan did not indicate any acute abnormality, Urinalysis was nitrite positive, await urine culture for evaluation Start Cipro 500mg Q12H Chronic pain Home medications continued Gastroparesis with chronic nausea Home medications continued Overall disposition and planning care Patient with continued deconditioning in outpatient setting, memory issues being worked up in outpatient setting, continue smoking and chronic respiratory failure patient. Discussed with about palliative/hospice care. He indicates that he has spoken with hospice in the past and is open to speaking with them again for home with hospice care. appears to be quite concerned with the patient's declining physical and mental state. We'll consult hospice for reevaluation. DVT prevention Sequential compression devices This note was transcribed by sohan Bhat. I, Dr. Everett Carrion personally performed the history, physical exam, and medical decision making; and confirmed the accuracy of the information in the transcribed note. Authenticated by Dr. Everett Carrion on 11/09/16 at 07:49. Code Status Full code Discussed Condition With Patient, Problem Qualifiers (1) Abdominal pain: Qualified Code: R10.30 - Lower abdominal pain Ramiro Bhat Nov 09, 2016 07:24 Everett Carrion MD Nov 09, 2016 07:27
[2016-11-09 07:44] LABS: AUTOMATED NEUTROPHIL # 2.8 TH/MM3 (1.8-7.7); BASOPHIL # 0.1 TH/MM3 (0-0.2); BASOPHIL % 1.5 % (0.0-2.0); EOSINOPHIL # 0.1 TH/MM3 (0-0.4); EOSINOPHIL % 1.2 % (0.0-4.0); HEMATOCRIT 36.5 % (35.0-46.0); HEMO FLAGS DIFF FINAL; LYMPH % 44.9 % (9.0-44.0); LYMPHOCYTE # 2.7 TH/MM3 (1.0-4.8); MEAN CELL VOLUME 101.7 FL (80.0-100.0); MEAN CORPUSCULAR HGB CONC 31.5 % (32.0-36.0); MONO % 6.5 % (0.0-8.0); NEUT % 45.9 % (16.0-70.0); PLATELET COUNT 180 TH/MM3 (150-450); RED BLOOD COUNT 3.59 MIL/MM3 (4.00-5.30); RED CELL DISTRIBUTION WIDTH 14.6 % (11.6-17.2); WHITE BLOOD COUNT 6.1 TH/MM3 (4.0-11.0)
[2016-11-09] MEDS: SODIUM CHLORIDE 0.9% FLUSH 10 ML FLUSH SCH ×2 (09:00→20:36)
[2016-11-09] MEDS ORDERED: LIPASE/PROTEASE/AMYLASE (24,000/76,000/120,000) CAP PO SCH (09:30)
[2016-11-09] MEDS: BUDESONIDE-FORMOTEROL 160/4.5 MCG INHALER INH SCH ×2 (09:36→21:00)
[2016-11-09] MEDS: METOPROLOL TARTRATE 50 MG TAB PO SCH ×2 (09:38→20:36)
[2016-11-09] MEDS: PANTOPRAZOLE SOD 40 MG DELAYED RELEASE TAB PO SCH (09:38)
[2016-11-09] MEDS: QUEtiapine FUMARATE 25 MG TAB PO SCH (09:46)
[2016-11-09] MEDS: HYDROXYUREA 500 MG CAP PO SCH (09:46)
[2016-11-09] MEDS ORDERED: IOHEXOL 350 MG/ML 10 ML VIAL (for RAD DIAG) IV ONE (10:57)
--- NOTE | 2016-11-09 11:04 | RADRPT ---
EXAM DATE/TIME: 11/09/2016 10:40 [place] COMPARISON: CHEST SINGLE AP, October 12, 2016, 1:50. CT PULMONARY ANGIOGRAM, July 26, 2013, 18:56. INDICATIONS : Chest pain and hypoxia. Evaluate for pulmonary embolism. IV CONTRAST: 65 cc Omnipaque 350 (iohexol) IV RADIATION DOSE: 6.49 CTDIvol (mGy) MEDICAL HISTORY : Gastroparesis. Gastroesophageal reflux disease. Diverticulitis.Pancreatitis. Hiatal hernia. Inguinal hernia. SURGICAL HISTORY : Cholecystectomy. Hysterectomy.Inguinal hernia repair. ENCOUNTER: Initial ACUITY: 1 day PAIN SCALE: 0/10 LOCATION: chest TECHNIQUE: Volumetric scanning of the chest was performed using a pulmonary embolism protocol MIP images were re constructed. Using automated exposure control and adjustment of the mA and/or kV according to patien t size, radiation dose was kept as low as reasonably achievable to obtain optimal diagnostic quality images. DICOM format image data is available electronically for review and comparison. FINDINGS: PULMONARY ARTERIES: No filling defects are seen in the pulmonary arteries through the segmental level. LUNGS: There is diffuse central lobar emphysema throughout both lung gómez. There is a mild infiltrate in t he posterior right lower lung. There is a mild nodular infiltrate in the left lower lung. PLEURAE: There is no pleural thickening or pleural effusion. MEDIASTINUM: There is good visualization of the great vessels of the middle mediastinum. No evidence of mediastin al or hilar adenopathy/mass. MUSCULOSKELETAL: Within normal limits for patient age. MISCELLANEOUS: The visualized upper abdominal organs demonstrate no acute abnormality. CONCLUSION: 1. No evidence of pulmonary embolism 2. COPD and bullous emphysema throughout both lung gómez. 3. Mild bibasilar infiltrates suggestive of pneumonia. Mario Aguirre MD on November 09, 2016 at 10:59 Board Certified Radiologist. This report was verified electronically.
[2016-11-09 11:06] LABS: CREATINE KINASE 26 U/L (26-192)
--- NOTE | 2016-11-09 11:51 | EKG ---
Date Performed: 11/08/2016 Time Performed: 17:36:56 PTAGE: 66 years EKG: Sinus rhythm POSSIBLE LEFT ATRIAL ENLARGEMENT POSSIBLE RIGHT VENTRICULAR CONDUCTION DELAY ST DEVIATION AND MARKED T-WAVE ABNORMALITY, CONSIDER ANTEROLATERAL ISCHEMIA Compared to previous tracing, ST-T changes are n ow present in the anterior leads, consider anterior ischemia. ABNORMAL ECG PREVIOUS TRACING : 10/18/2016 12.20.37 DOCTOR: Theodore Gomez Interpretating Date/Time 11/09/2016 11:49:33
--- NOTE | 2016-11-09 12:19 | EKG ---
Date Performed: 11/08/2016 Time Performed: 22:18:36 PTAGE: 66 years EKG: Sinus rhythm POSSIBLE LEFT ATRIAL ENLARGEMENT MARKED T-WAVE ABNORMALITY, CONSIDER ANTEROLATERAL ISCHEMIA Since pr evious tracing, no significant change noted ABNORMAL ECG PREVIOUS TRACING : 11/08/2016 19.49 DOCTOR: Theodore Gomez Interpretating Date/Time 11/09/2016 12:17:32
--- NOTE | 2016-11-09 12:19 | EKG ---
Date Performed: 11/08/2016 Time Performed: 19:49:15 PTAGE: 66 years EKG: Sinus rhythm POSSIBLE LEFT ATRIAL ENLARGEMENT POSSIBLE RIGHT VENTRICULAR CONDUCTION DELAY MARKED T-WAVE ABNORMALI TY, CONSIDER ANTEROLATERAL ISCHEMIA Since previous tracing, no significant change noted ABNORMAL ECG PREVIOUS TRACING : 11/08/2016 17.36 DOCTOR: Theodore Gomez Interpretating Date/Time 11/09/2016 12:17:45
[2016-11-09] MEDS: LIPASE/PROTEASE/AMYLASE (24,000/76,000/120,000) CAP PO SCH ×2 (13:30→18:16)
[2016-11-09] MEDS: traZODone HCL 50 MG TAB PO SCH (20:35)
[2016-11-10 00:24] VITALS: BP 144/80; PULSE 71; RESP 16; TEMP 97.9; O2SAT 99
[2016-11-10 05:13] VITALS: BP 148/81; PULSE 68; RESP 18; TEMP 96; O2SAT 99
[2016-11-10] MEDS: oxyCODONE HCL 20 MG CONTROLLED RELEASE TAB PO SCH ×2 (06:02→13:21)
[2016-11-10 08:01] VITALS: BP 143/81; PULSE 64; PULSE 65; RESP 19; TEMP 97.3; O2SAT 91
[2016-11-10 09:00] VITALS: O2SAT 91
[2016-11-10] MEDS ORDERED: ASPIRIN EC 81 MG TABEC PO SCH (09:00)
[2016-11-10] MEDS: BUDESONIDE-FORMOTEROL 160/4.5 MCG INHALER INH SCH (09:00)
[2016-11-10] MEDS ORDERED: CIPROFLOXACIN 500 MG TAB PO SCH (09:00)
[2016-11-10] MEDS ORDERED: ACETAMINOPHEN 325 MG TAB PO PRN (09:15)
[2016-11-10] MEDS ORDERED: ONDANSETRON HCL 4 MG/2 ML VIAL IV PRN (09:15)
[2016-11-10] MEDS: HYDROXYUREA 500 MG CAP PO SCH (09:25)
[2016-11-10] MEDS: METOPROLOL TARTRATE 50 MG TAB PO SCH (09:29)
[2016-11-10] MEDS: CARISOPRODOL 350 MG TAB PO PRN (09:30)
[2016-11-10] MEDS: QUEtiapine FUMARATE 25 MG TAB PO SCH (09:30)
[2016-11-10] MEDS: LIPASE/PROTEASE/AMYLASE (24,000/76,000/120,000) CAP PO SCH ×2 (09:30→13:20)
[2016-11-10] MEDS: PANTOPRAZOLE SOD 40 MG DELAYED RELEASE TAB PO SCH (09:30)
[2016-11-10] MEDS: SODIUM CHLORIDE 0.9% FLUSH 10 ML FLUSH SCH (09:31)
--- NOTE | 2016-11-10 10:32 | HHI.FF ---
Face to Face Verification Diagnosis: (1) UTI (urinary tract infection) (2) Chronic narcotic dependence (3) Intractable nausea and vomiting (4) Debility (5) Chronic pain syndrome (6) Altered mental status Physical Therapy Order: Evaluate and Treat, Improve ambulation, Strength and gait training Home Health Nursing Order: Medical education Medication education-adverse effect Nursing assessment with vital signs [employer] Order: To Evaluate: Living conditions/environment, Support services Order: To Provide: Long range planning, Community services I have seen patient Negin Robertson on 11/10/16. My clinical findings support the need for the requested home health care services because: Ltd mobility - disease progression Deconditioned w/ increased weakness I certify that my clinical findings support that this patient is homebound because: Impaired cognitive ability/safety Hx COPD- exertion dyspnea/weakness Unsteady gait/balance Ramiro Bhat Nov 10, 2016 10:32
--- NOTE | 2016-11-10 11:06 | HHI.PR ---
Subjective Remarks Follow-up atypical chest pain 11/10/16-patient seen and examined, denies any chest pain however complains of nausea without any emesis. currently afebrile. by the bedside however he declines hospice, states he would like to know exactly whether she has a liver malignancy or what could explain her memory loss Objective Vitals Vital Signs Date Time Temp Pulse Resp B/P Pulse Ox O2 Delivery O2 Flow Rate FiO2 11/10/16 09:00 91 21 11/10/16 08:01 97.3 65 19 143/81 91 11/10/16 05:13 96.0 68 18 148/81 99 11/10/16 00:24 97.9 71 16 144/80 99 11/09/16 20:59 96 Nasal Cannula 2.00 11/09/16 19:47 97.0 72 18 143/76 98 11/09/16 16:00 97.6 68 18 149/77 97 11/09/16 12:00 97.0 61 16 127/73 99 I/O 11/09/16 11/09/16 11/09/16 11/10/16 11/10/16 11/10/16 07:00 15:00 23:00 07:00 15:00 23:00 Intake Total 0 ml Output Total 250 ml Balance -250 ml Intake Oral 0 ml Output Urine Total 250 ml # Voids 0 # Bowel Movements 1 Result Diagram: 11/09/16 0738 11/08/16 [address] Angiography 11/09/16 0000 Signed Impressions: Service Date/Time: Wednesday, November 09, 2016 10:40 - CONCLUSION: 1. No evidence of pulmonary embolism 2. COPD and bullous emphysema throughout both lung gómez. 3. Mild bibasilar infiltrates suggestive of pneumonia. Mario Aguirre MD Chest X-Ray 11/08/16 1742 Signed Impressions: Service Date/Time: Tuesday, November 08, 2016 18:01 - CONCLUSION: No acute disease. Mayur Whaley MD Objective Remarks GENERAL: NAD SKIN: Warm and dry. HEAD: Normocephalic. EYES: No scleral icterus. No injection or drainage. NECK: Supple, trachea midline. No JVD or lymphadenopathy. CARDIOVASCULAR: Regular rate and rhythm without murmurs, gallops, or rubs. RESPIRATORY: Breath sounds equal bilaterally. No accessory muscle use. GASTROINTESTINAL: Abdomen soft, non-tender, nondistended. MUSCULOSKELETAL: No cyanosis, or edema. BACK: Nontender without obvious deformity. No CVA tenderness. A/P Problem List: (1) Chest pain ICD Code: R07.9 Status: Acute (2) UTI (urinary tract infection) ICD Code: N39.0 Status: Acute Assessment and Plan 66-year-old female with Chest pain, unstable angina Patient with significant risk factors to include age, hypertension, hyperlipidemia, coronary artery disease, recent PEA cardiac arrest Patient recently had a cardiac catheterization one week ago and is being managed medically by her pocket setter lockstitch Dr. De La Rosa Serial cardiac enzymes thus far are negative D-dimer elevated however pulmonary angiogram negative for PE Continue home medication aspirin, metoprolol, nitroglycerin as needed Patient to follow outpatient with pocket setter lockstitch, Dr. De La Rosa for management Obtain outside records from [facility] from her recent hospitalization, cardiac catheterization, EKGs for completeness of evaluation Chronic hypoxic respiratory failure, chronic obstructive pulmonary disease, Continue O2 supplementation maintain O2 sats greater than 92% Symbicort continued as therapeutic replacement for Advair Albuterol inhaler as needed Chronic/recurrent urinary tract infection with intermittent suprapubic pain Possibly related to bladder spasm Recent CT scan did not indicate any acute abnormality, Urinalysis was nitrite positive, await urine culture for evaluation Start Cipro 500mg Q12H Chronic pain Home medications continued Gastroparesis with chronic nausea Home medications continued Overall disposition and planning care Patient with continued deconditioning in outpatient setting, memory issues being worked up in outpatient setting, continue smoking and chronic respiratory failure patient. Patient's refused for hospice admission at this time DVT prevention Sequential compression devices Discharge Planning Discharge patient to home Condition on discharge: Improved Regular Diet as tolerated Ad Chandni activity Rx written:see EMR Follow-up with primary care physician in 1week Everett Carrion MD Nov 10, 2016 11:06
[2016-11-10] MEDS ORDERED: CIPR-9 PO ×2 (11:10→13:31)
[2016-11-10 11:55] VITALS: BP 124/70; PULSE 66; RESP 19; TEMP 97.6; O2SAT 96
== END 2016-11-10 13:52 | disposition home or self-care (01) ==
LOC: PHED 17:31 → PHEDA 19:34 → PH3A 21:25 → UNDODISOB 11-10 13:52
PROVIDERS: ADMIT Hospitalist; ATTEND Hospitalist
DX: R10.30 Lower abdominal pain, unspecified (principal); R07.89 Other chest pain; R06.02 Shortness of breath; R41.3 Other amnesia; R94.31 Abnormal electrocardiogram [ECG] [EKG]; N39.0 Urinary tract infection, site not specified; R53.83 Other fatigue; R63.4 Abnormal weight loss; R41.0 Disorientation, unspecified; I25.110 Atherosclerotic heart disease of native coronary artery with unstable angina pectoris; I11.0 Hypertensive heart disease with heart failure; I50.9 Heart failure, unspecified; J44.9 Chronic obstructive pulmonary disease, unspecified; J96.11 Chronic respiratory failure with hypoxia; I25.2 Old myocardial infarction; E78.5 Hyperlipidemia, unspecified; E78.00 Pure hypercholesterolemia, unspecified; M54.2 Cervicalgia; M54.9 Dorsalgia, unspecified; G89.29 Other chronic pain; C94.6 Myelodysplastic disease, not elsewhere classified; K31.84 Gastroparesis; I48.91 Unspecified atrial fibrillation; B19.10 Unspecified viral hepatitis B without hepatic coma; K58.9 Irritable bowel syndrome, unspecified; K21.9 Gastro-esophageal reflux disease without esophagitis; F41.9 Anxiety disorder, unspecified; F32.9 Major depressive disorder, single episode, unspecified; M19.90 Unspecified osteoarthritis, unspecified site; F17.210 Nicotine dependence, cigarettes, uncomplicated; Z79.899 Other long term (current) drug therapy; Z79.01 Long term (current) use of anticoagulants; Z79.82 Long term (current) use of aspirin; Z86.74 Personal history of sudden cardiac arrest; Z99.81 Dependence on supplemental oxygen; Z87.442 Personal history of urinary calculi
CPT/HCPCS: 36600; 71010; 71275; 76937; 80053; 81001; 82550; 82805; 84484; 85025; 85379; 85610; 85730; 87077; 87086; 87186; 93005; 99285; G0378; J1885; J2405; Q9967